=== PATIENT | male | born 1950 | race Caucasian/White ===

== ENCOUNTER 2017-03-26 05:43 | Inpatient (IN) | payer MEDICARE, OTHER ==
--- NOTE | 2017-03-20 16:05 | NUR ---
PATIENT IS HERE TODAY FOR PREADMISSION APPOINTMENT. HE IS SCHEDULED FOR SURGERY ON 03/26/17 FOR A LEFT TOTAL KNEE REPLACEMENT. HIS EDDIE WILL BE HERE TO TAKE HIM HOME WHEN HE IS DISCHARGED AND TO TRANSPORT HIM TO PHYSICAL THERAPY APPOINTMENTS. HE IS SCHEDULED FOR A PRE-OP PHYSICAL THERAPY APPOINTMENT AT THE [facility] ON Sunday03/23/17. PATIENT STATES HE HAS ONE STEP INTO THE HOME AND NO STEPS INSIDE THE HOME. HE DOES HAVE A FRONT WHEELED WALKER THAT HIS WILL BRING IN ONCE HE IS ON THE MEDICAL FLOOR. THEY HAVE A TUB/SHOWER COMBO AND A TRANSFER BENCH FOR SHOWERING. PATIENT WAS ENCOURAGED TO LOOK INTO A HAND HELD SHOWER HEAD FOR EASE OF SHOWERING. PATIENT VERBALIZED INSTRUCTIONS GIVEN FROM OFFICE REGARDING STOPPING HIS COUMADIN ON 03/21/17 AND STARTING LOVENOX INJECTIONS. INFORMATION WILL BE SENT TO DR FERNANDO OFFICE AND TO DISCHARGE PLANNING FOR FURTHER FOLLOW UP.
[~2017-03-26] VITALS: Ht 177.8 cm; Wt 86.2 kg
--- OUTSIDE RECORDS SUMMARY | ~2017-03-26 | XMS | Clinical Summary ---
Demographics + + + | Address | [address] | | | [place] [address] | + + + | Home Phone | | + + + | Preferred Language | Unknown | + + + | Marital Status | | + + + | Islam Affiliation | CAT | + + + | Race | White | + + + | Ethnic Group | Not or | + + + Author + + + | Author | [facility] | + + + | Organization | [facility] | + + + | Address | Unknown | + + + | Phone | Unavailable | + + + Support + + +---------+ + | Name | Relationship | Address | Phone | + + +---------+ + | EDDIE CASTANEDA | ECON | Unknown | | + + +---------+ + Care Team Providers + +------+ + | Care Electrical Logging Engineer Name | Role | Phone | + +------+ + PP | Unavailable | + +------+ + Source Comments CANDIS is fully live on both [facility] and [facility] Allergies Not on File Current Medications Not on file Active Problems Not on file Social History + +-------+ +--------+------+ | Tobacco [...] on file | | + + + Plan of Treatment + + + + + | Health Maintenance | Due Date | Last Done | Comments | + + + + + | INFLUENZA VACCINE | | | | | (FLU SHOT) | 7 | | | + + + + + Results Not on filefrom Last 3 Months"
[~2017-03-26 05:43] MED LIST: ASPIR-LOW81 MG PO; BACLOFEN20 MG PO; BACTRIM DS TAB1 EACH PO; BUTALB-ACETAMI1 EACH PO; CALCIUM-MAGNES1 EAC4 PO; COUMADIN2.5 MG PO; COUMADIN5 MG PO; CYCLOBENZAPRINE10 MG PO; FLOMAX0.4 MG PO; LIPITOR80 MG PO; LOSARTAN POTAS100 MG PO; LOVENOX80 MG/0.8 SUB-Q; PERCOCET 5-3251 EACH PO; PERCOCET 7.5-31 EACH PO; REQUIP4 MG PO; RESTORIL30 MG PO; SIMVASTATIN20 MG PO; TRIAMTERENE25 GM MC; VERAPAMIL ER180 M1 PO; WARFARIN SODIUM5 MG PO
--- NOTE | 2017-03-26 09:20 | NUR ---
03/26/17 0920 Sarahi Ricketts 0905 POULTRY CULLER SAID TO MONITOR BP AND KEEP WITHIN 20% OF PREOP BP. PT REPORTS "FEELING GREAT" DENIENS ANY DIZZINESS OR BEING LIGHT HEADED. RESP EVEN AND UNLABORED.
--- NOTE | 2017-03-26 10:36 | NUR ---
PATIENT TO FLOOR 1015, VS STABLE. ORIENTED PATIENT TO ROOM, AND POC. DISUSSED ORDERS FOR GARNER IF RESIDUAL >500 ML. PATIENT NOW DRINKING WATER. PATIENT DEMONSTRATED USE OF IS, ABLE TO RAISE WAFER TO 2500. LUNG SOUNDS CLEAR THROUGHOUT. PATIENT REPORTS BEING A DAILY SMOKER, DISCUSSED NICOTINE PATCH, PATIENT AGREED. PUT IN ORDER FOR HOSPITALIST CONSUT TO CO MANAGE PATIENT CO-MORBIDITIES. PATIENT AWAKE AND ALERT. NO COMPLAINTS OF PAIN. DSG TO LEFT KNEE C/D/I. KYRO CUFF IN PLACE AND SCD AND FOOT PUMP IN PLACE WITH LISA WHEELER TO RIGHT LEG. STRONG PEDAL PULSES AND CMS INTACT.
--- NOTE | 2017-03-26 11:36 | NUR ---
PATIENT UP DANGLING AT SIDE OF BED. NO COMPLAINTS OF PAIN. STRONG PEDAL PULSES. PATIENT ATTEMPTED TO URINATE, NOT ABLE TO. CONTINUING TO ENCOURAGE TO DRINK WATER. AAOX3. ABLE TO LIFT LEG WELL. KYRO CUFF ON, SCDS AND LISA WHEELER. VS STABLE. BP IMPROVING. NOW ON RA, SATURATION 95%.
--- NOTE | 2017-03-26 12:37 | NUR ---
PATIENT ATTEMPTED TO URINATE AGAIN, NO RESULTS. BLADDER SCAN ESTIMATE OF 200 ML. PATIENT STATES " I CAN FEEL LIKE I HAVE TO GO, BUT JUST CAN'T YET". NO COMPLAINTS OF PAIN. ABLE TO LIFT LEG UP AND DANGLE ON SIDE OF BED WITH EASE. DISCUSSED FALL PERCAUTIONS AND NEED TO CALL FOR ASSISTANCE. PATIENT NOW RESTING BACK IN BED WITH EYES CLOSED. DRSG TO LEFT KNEE C/D/I. VS SIGNS STABLE. PATIENT USING IS.
--- NOTE | 2017-03-26 12:47 | NUR ---
DR. HENLEY TO ROOM TO ASSESS PATIENT PER HOSPITALIST CONSULT. APPLIED 2L NC TO PATIENT, APPEARS TO DESAT WHILE SLEEPING TO 85% ON RA.
--- NOTE | 2017-03-26 13:41 | NUR ---
ADOLPH GANDHI TO WORK WITH PHYSICAL THERAPY. PATIENT CONTINUES TO HAVE 0 COMPLAINTS OF PAIN. POST OP VS DONE, PATIENT STABLE. DRSG TO LEFT LEG C/D/I. STRONG PEDAL PULSE, TOES WARM.
--- NOTE | 2017-03-26 14:14 | NUR ---
PATIENT AMBULATED FULL LOOP IN [place] WITH PHYSICAL THERAPY AND WAS ABLE TO STEP UP STAIRS AND PERFORM OTHER ACTIVITIES. PATIENT REPORTED PHYSICAL THERAPY TOLD HIM HE FLEX HIS KNEE TO 91 DEGREES BEND. ASSESED PATIENT DRSG AFTER ACTIVITY, CONTINUES TO APPEAR C/D/I. PATIENT UP IN RECLINER, EQUIPMENT CLEANER AND TESTER REFRESHED ICE TO KYRO CUFF, SCDS CALF PUMP AND FOOT PUMP ON. IV FLUIDS NOW CONITNUING TO INFUSE. PATIENT DRINKING WELL, ATTEMPTED TO URINATE AGAIN. DISCUSSED PLAN FOR BLADDERSCAN AT 1530. PATIENT VERBALIZED UNDERSTANDING. NO COMPLAINTS OF PAIN, OR NAUSEA. ENCOURAGED PATIENT TO EAT, REFUSED AT THIS TIME. PATIENT NOW LOOKING AT MENU FOR DINNER. DISCUSSED EVENING MEDICATIONS.
--- NOTE | 2017-03-26 14:17 | NUR ---
PATIENT BACK FROM PT, SITTING IN CHAIR WITH VISITOR. SED'S ON, CRYO FILLED. FRESH ICE WATER GIVEN. PATIENT SAYS HE'S NOT HUNGRY. CALL LIGHT IN REACH. NO OTHER NEEDS AT THIS TIME.
--- NOTE | 2017-03-26 15:00 | NUR ---
PATIENT SITTING UP IN RECLINER, RESTING. OXYGEN SATURATION 98% ON RA. AT CHAIR SIDE. PROVIDED PATIENT WITH ICE WATER. WILL BLADDER SCAN WHEN PATIENT WAKES UP, REQUESTED TO LET HIM REST A LITTLE LONGER, "HE JUST FELL ASLEEP". PLAN TO BLADDER SCAN AT 1600.
--- NOTE | 2017-03-26 16:16 | NUR ---
PATIENT SITTING UP IN CHAIR, IN ROOM.PATIENT TRIED USEING URINAL, WAS NOT ABLE TO GO. FRESH WATER GIVEN, CALI SAINI CAME IN I WAS LEAVING. CALL LIGHT IN REACH. NO OTHER NEEDS AT THIS TIME.
--- NOTE | 2017-03-26 16:47 | NUR ---
BLADDER SCANNED ESTIMATE 280ML OF URINE, PATIENT STATES " I FEEL THE URGE BUT JUST CAN'T GO". PATIENT REPORTS FEELING SOME TIGHTNESS IN LEG WHEN DOING EXERCISES. ENCOURAGED PATIENT TO TAKE A BREAK FROM EXERCISES AND ACTIVITY FOR AWHILE. HAS BEEN VERY ACTIVE THROUGHUT DAY, DISCUSSED OVERDOING IT. ORDERED PATIENT DINNER, PROVIDED WITH FRESH ICE WATER. TALIB C/D/I, KODI IN [facility]. STRONG PEDAL PULSES, TOES WARM TO TOUCH. CONTINUES TO RATE PAIN 0/10 ON PAIN SCALE.
--- NOTE | 2017-03-26 17:41 | NUR ---
PATIENT SITTING UP IN RECLINER, PROVIDED PATIENT WITH EVENING MEDICAITONS. CONTINUES HAVE NOT COMPLAINTS OF PAIN, JUST TIGHTNESS WHEN LIFTS LEG UP BUT RESOLVES AT REST. KYRO CUFF ON, STRONG PEDAL PULSE. SCDS ON. CALL LIGHT IN REACH, PATIENT WATCHING TV AND WAITING FOR DINNER.
--- NOTE | 2017-03-26 17:57 | NUR ---
PATIENT STOOD UP WITH ONE PERSON ASSIST WITH FWW TO TRY TO VOID. PATIENT BACK IN CHAIR WITH LEGS ELEVATED. CALL BUTTON IN REACH. FRESH ICE WATER GIVEN. ICE IN CRYO. NO OTHER NEEDS AT THIS TIME.
--- NOTE | 2017-03-26 18:43 | NUR ---
PATIENT BLADDER SCAN 588, DISCUSSED WITH PATIENT STANDING ORDER TO INSERT GARNER OVER NIGHT IF >500 ML AND UNABLE TO VOID. PATIENT REQUESTED TO SIT IN BATHROOM AND ATTEMPT TO URINATE. STBY TO BATHROOM, PATIENT VERBALIZES WILL CALL FOR ASSIST WHEN READY TO GET BACK TO BED.
--- NOTE | 2017-03-26 19:47 | NUR ---
PLACED GARNER CATHETER, PATIENT TOLERATED WELL. INSERTED WITH EASE. CONCENTRATED URINE RETURN. VERBAL REPORT AT BEDSIDE TO ONCOMING RN. PATIENT RESTING BACK IN BED, SCDS, LISA HOSE AND KYRO CUFF IN PLACE. STRONG PEDAL PULSES. CONTINUIOUS PULSE OX ON. CALL LIGHT WITHIN REACH.
--- NOTE | 2017-03-26 21:14 | NUR ---
PT SITTING UP IN BED, WATCHING TV. NO APPARENT DISTRESS. PLEASENT DEMEANOR. ALERT AND ORIENTED X4. RATES PAIN AT 2/10, REQUESTED PAIN MEDICATION, GAVE SCHEDULED DOSE OF OXYCODONE PO. DENIES PRURITIS. DRESSING IS CLEAN DRY AND INTACT, NO SHADOWING. TEDS, COLD CRYOCUFF, SCD TO RIGHT CALF AND FOOT SCD TO LEFT FOOT, AND HEEL PROTECTORS IN PLACE. PT REPORTS USING INCENTIVE SPIROMETER TODAY, DEMONSTRATED CORRECT USE, IS AT BEDSIDE. GAVE CRACKERS. ICE WATER AT BEDSIDE. CALL LIGHT IN REACH. PT HAS NO FURTHER NEEDS.
--- NOTE | 2017-03-26 23:29 | NUR ---
PT APPEARS TO BE SLEEPING. RR WNL AND UNLABORED. ANCEF INFUSED WNL. LIGHTS AND TV OFF IN ROOM.
--- NOTE | 2017-03-27 01:16 | NUR ---
PT APPEARS TO BE SLEEPING. LIGHTS AND TV OFF IN ROOM.
--- NOTE | 2017-03-27 04:44 | NUR ---
PT APPEARS TO BE SLEEPING.
--- NOTE | 2017-03-27 05:29 | NUR ---
PT HAD UNEVENTFUL NIGHT. SLEPT MOST OF SHIFT. PAIN WELL CONTROLLED WITH SCHEDULED AND PRN PAIN X1 MEDICATION. PT ALERT AND ORIENTED X4, PLEASENT DEMEANOR. USES CALL LIGHT APPROPRIATLY. NO NAUSEA. NO PRURITIS. ALL DR FERNANDO ORDERS IN PLACE OVERNIGHT. DRESSING IS CLEAN DRY AND INTACT, NO SHADOWING. INCENTIVE SPIROMETER AT BEDSIDE. ANCEF GIVEN.
--- NOTE | 2017-03-27 06:24 | NUR ---
DC'D PATSY, PT TOLERATED WELL. PT RATES PAIN AT A 1/10 NOW, STATING "I HARDLY HAVE ANY." ORDERED PT BREAKFAST. NO FURTHER NEEDS. CALL LIGHT IN REACH. DRESSING CLEAN DRY AND INTACT, NO SHADOWING. CALL LIGHT IN REACH.
--- NOTE | 2017-03-27 07:50 | NUR ---
REPORT RECEIVED FROM TRINH SY. PT IS AWAKE AND SITTING UP IN BED. DENIES ANY NEEDS AT THIS TIME. CALL LIGHT IN REACH. BOARD UPDATED.
--- NOTE | 2017-03-27 08:20 | NUR ---
ASSESMENT DONE. SCHEDULED OXY GIVEN. PT ATE BREAKFAST AND DENIES NAUSEA. PT SITTING UP ON EDGE OF BED. CRYO REFILLED. VISITORS IN ROOM. PT ALERT AND PLEASANT.
--- NOTE | 2017-03-27 08:24 | OR ---
[facility] [address] [place], [place] [address] Signed DATE OF OPERATION: 03/26/2017 SURGEON: Manpreet Cruz MD PREOPERATIVE DIAGNOSIS: Severe degenerative joint disease, left knee. POSTOPERATIVE DIAGNOSIS: Severe degenerative joint disease, left knee. PROCEDURE PERFORMED: Left total knee arthroplasty with computer navigation. TOE STAPLER: PATRICIA Robles was present for the entire procedure, was in critical for positioning, retraction, wound closure, and dressing application. ANESTHESIA: Spinal. BLOOD LOSS: Minimal. TOURNIQUET TIME: Approximately 62 minutes. IMPLANTS: Darian Triathlon size 6 with 11 mm insert, 35 mm patella. BRIEF HISTORY: Basilia is a 67-year-old gentleman with worsening DJD. He had undergone nonoperative treatment including bracing, arthroscopy, and injections without substantial relief. Risks and benefits of operative treatment were discussed with him and he elected to proceed. DESCRIPTION OF PROCEDURE: Once consent was obtained, he was taken to the operating room. After adequate anesthesia, he was placed on operating table. All downside pressure points were well Electronically Signed By: MANPREET CRUZ MD 03/27/17 0824 PATIENT NAME: BASILIA CASTANEDA OPERATIVE REPORT DATE OF : 52 PHYSICIAN: MANPREET CRUZ MD REPORT #: [id number] REPORT IS CONFIDENTIAL AND NOT TO BE RELEASED WITHOUT AUTHORIZATION [facility] [address] [facility] [place], [place] [address] Signed padded. Hip bump was placed. The left leg was placed in well-padded proximal thigh tourniquet. Because he had prior history by report of DVT, we did not give him any TXA. The leg was prepped and draped in a standard sterile fashion. It was exsanguinated using Esmarch bandage. Tourniquet inflated to 250 mmHg. Standard anterior approach through curved incision was taken through the skin and subcutaneous tissue. Median parapatellar arthrotomy was performed. The infrapatellar fat pad was excised and the MCL was elevated to sleeve around the posterior medial corner. Care was taken to protect the MCL and patellar tendon throughout the procedure. The medial meniscus was absent. The anterior horn of the lateral meniscus was transected as was the ACL. The PCL was intact. The knee was flexed and the navigation guide was pinned to the distal femur. The femur was registered with the computer. The cutting block was then pinned in neutral alignment and the distal femoral cut was made. The femur was sized to a 6. The 6 AP cutting block was then pinned in alignment with epicondylar axis. The anterior, posterior and chamfer cuts were made. The attention was then turned to the proximal tibia. The proximal tibia was cleaned of soft tissue and navigation guide was pinned. The tibia was registered with the computer. The cutting block was then pinned in neutral alignment and set to take 2 mm off the most deformed posteromedial corner. The cut was made with care taken to protect the patellar tendon and MCL once again. The bone was excised, as were any meniscal remnants. Posterior release performed off the femur and posterior osteophytes were removed. The flexion and extension gaps sized found to be symmetric at 11 mm. The trials were then positioned, knee was taken through range of motion, and found to be quite stable. The patella was cut, sized and drilled for a 35 patella. The tibia was then finished using the keel punch and bone surfaces were pulse lavaged, packed with the right dry Ray-Felix. Cement was mixed and reached proper consistency and placed all implants on bone surfaces. Tibia was impacted into position first followed by the polyethylene and any remaining cement was removed. The femur was then impacted in position, again any remaining cement was removed. The knee was then extended and nicely loaded. Patella was clamped into position and again any remaining cement was removed. The cement was allowed to harden for 13 minutes. The knee was then flexed and the remaining cement was removed using osteotomes. The periarticular soft tissue was injected with ropivacaine Toradol mixture. The knee was pulse lavaged at intervals throughout the procedure. A total of 3 L of antibiotic irrigation was used. The arthrotomy was then closed using 0 Stratafix in subcutaneous tissue and pankaj for the skin. Due to his being anticoagulated and no TXA, we did dress the wound with a Mepilex Ag dressing and a bulky Brady. He was then awakened and taken to recovery room in satisfactory condition. All sponge, needle, and instrument counts were correct. Manpreet Cruz MD Electronically Signed By: MANPREET CRUZ MD 03/27/17 0824 PATIENT NAME: BASILIA CASTANEDA OPERATIVE REPORT DATE OF : 52 PHYSICIAN: MANPREET CRUZ MD REPORT #: [id number] REPORT IS CONFIDENTIAL AND NOT TO BE RELEASED WITHOUT AUTHORIZATION [address] [address] Signed [facility] /[id number] Electronically Signed By: MANPREET CRUZ MD 03/27/17 0824 PATIENT NAME: BASILIA CASTANEDA OPERATIVE REPORT DATE OF : 52 PHYSICIAN: MANPREET CRUZ MD REPORT #: [id number] REPORT IS CONFIDENTIAL AND NOT TO BE RELEASED WITHOUT AUTHORIZATION
[2017-03-27] MEDS ORDERED: FIORINAL 50-321 EACH PO (08:26)
[2017-03-27] MEDS ORDERED: FERROUS SULFAT325 MG PO (09:35)
[2017-03-27] MEDS ORDERED: VITAMIN C500 M4 PO (09:36)
--- NOTE | 2017-03-27 09:37 | NUR ---
MED REC COMPLETE
--- NOTE | 2017-03-27 09:45 | NUR ---
PT UP IN [place] WITH PHYSICAL THERAPY.
--- NOTE | 2017-03-27 10:19 | NUR ---
PT BACK FROM PHYSICAL THERAPY. SITTING IN CHAIR WITH LEGS ELEVATED. STATES PHYSICAL THERAPY WENT WELL. DENIES ANY OTHER NEEDS AT THIS TIME. CALL LIGHT IN REACH.
--- NOTE | 2017-03-27 11:16 | NUR ---
PT SITTING IN CHAIR WITH CRYO IN PLACE. RATES PAIN 4\10, ASKED IF HE WOULD LIKE THIS RN TO CALL THE DR AND GET MORE PAIN MEDICATIONS. HE STATED HE WAS OK WITH A 4 AND IF IT GOT HIGHER HE WOULD CALL AND LET US KNOW. DENIES FURTHER CONCERNS.
--- NOTE | 2017-03-27 12:45 | NUR ---
PT SITTING UP IN CHAIR. ATE LUNCH WITH NO NAUSEA. DENIES OTHER NEEDS AT THIS TIME.
--- NOTE | 2017-03-27 13:35 | NUR ---
PT UP AT BEDSIDE USING URINAL. BACK TO CHAIR WITH CRYO IN PLACE. OXY GIVEN FOR PAIN 06/14. PT DENIES OTHER NEEDS AT THIS TIME.
--- NOTE | 2017-03-27 13:45 | NUR ---
DR HENLEY IN TO SEE PT AND DISCUSS PLAN OF CARE.
--- NOTE | 2017-03-27 14:02 | NUR ---
PT SITTING IN CHAIR-CRYO CUP ON. ALERT ADN ORIENTED AND MENTIONED THAT HE WASN'T QUITE UP TO LEAPING TALL BLDG'S YET, BUT SOON. PREPARING FOR P.T. LATER THIS AFTERNOON. EXTENDED A BLESSING, WILL FOLLOW NEEDED
--- NOTE | 2017-03-27 14:27 | NUR ---
PT UP WALKING IN [place] WITH PHYSICAL THERAPY. APPEARS TO BE TOLERATING WELL.
--- NOTE | 2017-03-27 15:32 | NUR ---
TALKED TO PT ABOUT PHYS. THER AND HIS OUTPATIENT THERAPY. STATES HIS PAIN IS WELL CONTROLLED ATT. STATES HIS LEG IS A LITTLE STIFF BUT DENIES PAIN IN CALF. JUST CRAMPING IN QUAD.
--- NOTE | 2017-03-27 16:52 | NUR ---
DR FERNANDO CALLED. PT GIVEN [address] FERNANDO ORDER FOR PT PAIN 07/15. CRYO REFILLED. PT SITTING UP IN CHAIR EATING DINNER. AT BEDSIDE. DENIES OTHER NEEDS AT THIS TIME. WILL REASSESS PAIN.
--- NOTE | 2017-03-27 18:00 | NUR ---
PT UP WITH PHYSICAL THERAPY X2 TODAY. TOLERATED WELL. UP IN CHAIR MOST OF DAY. INSPIRATORY WHEEZE ON LEFT SIDE THIS AM, BUT CLEARED BY AFTERNOON. CRYO IN PLACE ALL DAY. WOUND COVERED, DRESSING IS CDI. SBA WITH FWW. PT USING URINAL AT BEDSIDE. SCHEDULED OXY AND PRN NORCO FOR PAIN.
--- NOTE | 2017-03-27 20:05 | NUR ---
PT COMPLAINED OF 5/10 PAIN, GAVE SCHEDULED DOSE OF OXYCODONE. PT HAS NO FURTHER NEEDS. WILL CONTINUE TO MONITOR CLOSELY.
--- NOTE | 2017-03-27 20:22 | NUR ---
PATIENT REQUESTED FOR PAIN MEDS. TRINH SY NOTIFIED.
--- NOTE | 2017-03-27 20:31 | NUR ---
PT LAYING IN BED, WATCHING TV. PT HAS FLAT AFFECT, ANSWERS QUESTIONS APPROPRIATLY, BUT ONLY SPEAKS WHEN ASKED A QUESTION. PT RATES PAIN AT 7/10, GAVE SCHEDULED OXYCODONE FOR PAIN. PT REPORTS PAIN WAS UNCHANGED AND ACTUALLY GOT A LITTLE WORSE AFTER THE NORCO WAS GIVEN. ALL DR FERNANDO ORDERS IN PLACE. CRYO CUFF FILLED WITH ICE. DRESSING IS CLEAN DRY AND INTACT, NO SHADOWING. CALL LIGHT IN REACH.
--- NOTE | 2017-03-27 20:50 | NUR ---
NOTIFIED DR FERNANDO OF PT'S POOR PAIN CONTROL, NEW PAIN MEDICATIONS ORDERS RECIEVED. WILL CONTINUE TO MONITOR PT'S PAIN CONTROL CLOSELY.
--- NOTE | 2017-03-27 22:05 | NUR ---
PT COMPLAINED OF 5/10 PAIN, GAVE SCHEDULED DOSE OF OXYCODONE FOR PAIN. PT REPORTS OXYCODONE IS WORKING FOR HIS PAIN. NO FURTHER NEEDS. PT IS IN BED AT THIS TIME. LIGHTS AND TV OFF IN ROOM. CALL LIGHT IN REACH.
--- NOTE | 2017-03-28 00:14 | NUR ---
PT APPEARS TO BE SLEEPING. RR WNL AND UNLABORED. LIGHTS AND TV OUT IN ROOM.
--- NOTE | 2017-03-28 01:19 | NUR ---
pt up to bathroom, tolerated standby assist with fww well. steady on feet. pt voided and had bm. pt back in bed. all dr jerome orders in place. pt rates pain at 5/10, gave dilaudid po for pain. call light in reach.
--- NOTE | 2017-03-28 02:40 | NUR ---
PT LAYING IN BED AWAKE WHEN ENTERING ROOM. RATES PAIN AT 5/10, STATES "ITS BEEN SUBSIDING A LITTLE BIT NOW." GAVE SCHEDULED OXYCODONE. PT HAS NO FURTHER NEEDS. DENIES NAUSEA.
--- NOTE | 2017-03-28 04:21 | NUR ---
PT WOKE EASILY TO RN VOICE. RATES PAIN AT 4/10, STATED "I THINK ITS GETTING BETTER NOW." PT REFUSED PAIN MEDICATION AT THIS TIME. ALLOWING PT TO REST. NO FURTHER NEEDS. CALL LIGHT IN REACH.
--- NOTE | 2017-03-28 05:14 | NUR ---
PT WAS PAINFUL BEGINNING OF SHIFT. BETTER PAIN CONTROL AFTER NEW ORDERS RECIEVED FROM DR FERNANDO. PT SLEPT WELL AFTER PAIN LEVEL DECREASED. NO NAUSEA. DRESSING CLEAN DRY AND INTACT. TEDS, SCD'S, HEEL PROTECTORS, CRYO CUFF ALL IN PLACE OVERNIGHT. PT AMBULATES WELL WITH FWW, STEADY ON FEET. HAD LOOSE BM. ALERT AND ORIENTED X4, PLEASENT, FRIENDLY. USES CALL LIGHT APPROPRIATLY.
--- NOTE | 2017-03-28 06:37 | NUR ---
PT UP TO BATHROOM TO VOID. THEN UP TO RECLINER CHAIR. TEDS AND CRYO CUFF IN PLACE. RATES PAIN AT 4/10, STATES "ITS PRETTY GOOD." GAVE SCHEDULED OXYCODONE. BREAKFAST ORDERED. EDUCATION ON INCENTIVE SPIROMETER, PT DEMONSTRATED CORRECT USE. CALL LIGHT IN REACH.
--- NOTE | 2017-03-28 07:20 | NUR ---
REPORT RECEIVED FROM TRINH SY. PT SITTING UP IN CHAIR WITH LEGS ELEVATED. WATER CUP REFILLED. PT WOULD LIKE TO GET UP AND WALK TODAY. DENIES PAIN AT THIS TIME. CALL LIGHT IN REACH
--- NOTE | 2017-03-28 08:17 | NUR ---
PT SITTING UP IN CHAIR EATING BREAKFAST. RATED PAIN 4/10 AND WAS GRIMACING. GIVEN PRN DILAUDID. PILLOW PLACED UNDER FOOT. INCISION COVERED WITH MEPILEX, OPSITE, AND TD. CRYO REFILLED AND PUT IN PLACE. PT DENIES OTHER NEEDS AT THIS TIME. CALL LIGHT IN REACH.
[2017-03-28] MEDS ORDERED: MIRALAX17 GM PO (08:23)
[2017-03-28] MEDS ORDERED: HYDROMORPHONE HC4 MG PO (08:23)
[2017-03-28] MEDS ORDERED: OXYCODONE HCL5 MG PO (08:23)
--- NOTE | 2017-03-28 09:23 | NUR ---
PT IS WITH SATINDER IN PHYSICAL THERAPY ROOM.
--- NOTE | 2017-03-28 09:45 | NUR ---
FAXED CHART NOTES INCLUDING FACESHEET, ORDER, H AND P, PROG NOTES, PT AND OT EVAL AND NOTES TO [facility]. TALKED WITH AGUSTIN FROM [facility] ABOUT THIS. RECIEVED FAX CONFIRMATION.
--- NOTE | 2017-03-28 09:53 | NUR ---
PT BACK FROM PHYSICAL THERAPY. SITTING IN CHAIR WITH LEGS ELEVATED. PILLOW UNDER FEET. WATER REFILLED. SCHEDULED OXY GIVEN FOR PAIN 07/15. WATER REFILLED. CRYO REFILLED AND IN PLACE. PT DENIES OTHER NEEDS AT THIS TIME, BUT APPEARS ANXIOUS AFTER GETTING OFF PHONE WITH .
--- NOTE | 2017-03-28 09:53 | NUR ---
CALLED [facility] TO DISCUSS PT PLAN OF CARE ON DISCHARGE, ALSO REPORTED PLAN FOR LAB INR ON SUNDAY AND FOLLOW UP WITH ON SUNDAY OF NEXT WEEK.
--- NOTE | 2017-03-28 09:58 | NUR ---
GUNJAN FROM PHARMACY DISCUSSING WARFARIN PLAN WITH [facility] AT THIS TIME
--- NOTE | 2017-03-28 11:03 | NUR ---
Patient to take warfarin 10mg today, then continue home dose. Continue enoxaparin 80mg sub-q BID and follow up with [facility]. Next INR due Sunday
--- NOTE | 2017-03-28 11:15 | NUR ---
DC EDUCATION PROVIDED INCLUDING FOLLOW-UP, WOUND CARE, AND S/S OF INFECTION. PT VERBALIZED UNDERSTANDING. ANSWERED ALL QUESTIONS. PT GOT DRESSED WITH MINOR ASSISTANCE. USES WALKER APPROPRIATELY. BELONGINGS RETURNED TO PT. PT WHEELED OUT TO CAR BY TRINH TRAN.
--- NOTE | 2017-04-16 08:37 | DS ---
[facility] [address] [place], [place] [address] Signed ADMISSION DATE: 03/26/2017 DISCHARGE DATE: 03/28/2017 ADMISSION DIAGNOSIS: Degenerative joint disease, left knee. DISCHARGE DIAGNOSIS: Degenerative joint disease, left knee. PROCEDURE PERFORMED: Left total knee arthroplasty. BRIEF HISTORY: Basilia is a 67-year-old gentleman with severe arthritis. He had undergone nonoperative treatment without success. Risks and benefits of operative treatment were discussed with him. He elected to proceed. Once consent was obtained, he was taken to the operating room, underwent the above-named procedure. He tolerated this well, was taken to the recovery room and subsequently to the orthopedic floor. He was initially placed on oxycodone 7.5 q.6 hours for pain. The diclofenac was discontinued due to his renal status. The spinal wore off and the oxycodone was not quite enough. We increased this to 10 mg q.4 hours and Dilaudid p.r.n. He did well with this regimen. He was seen by Physical Therapy, able to ambulate up and down the hallway and up and down stairs by the day of discharge. He will be discharged home with outpatient physical therapy and his above medication. He was kept on DVT prophylaxis of SCDs, TEDs, and Lovenox 80 mg b.i.d. He will continue with the bridging therapy, restart his Coumadin, and follow up with his PCP for INR in 3 to 5 days. Manpreet Cruz MD [facility] /[id number] Copies: Electronically Signed By: MANPREET CRUZ MD 04/16/17 0837 PATIENT NAME: BASILIA CASTANEDA DISCHARGE SUMMARY DATE OF : 52 REPORT #: [id number] PHYSICIAN: MANPREET CRUZ MD PCP: JOSE DE JESUS ALVARADO DO REPORT IS CONFIDENTIAL AND NOT TO BE RELEASED WITHOUT AUTHORIZATION [address] [place], [place] [address] Signed ~ Electronically Signed By: MANPREET CRUZ MD 04/16/17 0837 PATIENT NAME: BASILIA CASTANEDA DISCHARGE SUMMARY DATE OF : 52 REPORT #: [id number] PHYSICIAN: MANPREET CRUZ MD PCP: JOSE DE JESUS ALVARADO DO REPORT IS CONFIDENTIAL AND NOT TO BE RELEASED WITHOUT AUTHORIZATION
== END 2017-03-28 11:15 | disposition home or self-care (01) | DRG 470 ==
LOC: OPS 05:43 → DS 05:43 → OPS 06:45 → MS 10:15 → OPS 10:15 → DS 11:00 → OPS 11:00 → MS 03-28 11:15
PROVIDERS: ADMIT Specialist
PROC: 3E0T3BZ Introduction of Anesthetic Agent into Peripheral Nerves and Plexi, Percutaneous Approach (ICD-10-PCS; 2017-03-26)
PROC: 3E0T3BZ Introduction of Anesthetic Agent into Peripheral Nerves and Plexi, Percutaneous Approach (ICD-10-PCS; 2017-03-26)
PROC: 3E0T33Z Introduction of Anti-inflammatory into Peripheral Nerves and Plexi, Percutaneous Approach (ICD-10-PCS; 2017-03-26)
PROC: 0SRD0J9 Replacement of Left Knee Joint with Synthetic Substitute, Cemented, Open Approach (ICD-10-PCS; principal; 2017-03-26 06:45)
DX: M17.12 Unilateral primary osteoarthritis, left knee (principal); Z95.2 Presence of prosthetic heart valve; G89.18 Other acute postprocedural pain; I12.9 Hypertensive chronic kidney disease with stage 1 through stage 4 chronic kidney disease, or unspecified chronic kidney disease; N18.3 Chronic kidney disease, stage 3 (moderate); F51.04 Psychophysiologic insomnia; Z79.01 Long term (current) use of anticoagulants; N40.0 Benign prostatic hyperplasia without lower urinary tract symptoms; E78.5 Hyperlipidemia, unspecified; G25.81 Restless legs syndrome; G89.29 Other chronic pain; M54.9 Dorsalgia, unspecified; F17.290 Nicotine dependence, other tobacco product, uncomplicated; Z88.0 Allergy status to penicillin
CPT/HCPCS: 01402; 36415; 51798; 64447; 64450; 76942; 80048; 80069; 85025; 85610; 97110; 97116; 97161; 99407; C1713; C1776; G8978; G8979; J0690; J1100; J1170; J1650; J2274; J2704; J2795; J3010; J7120

== ENCOUNTER 2019-02-03 11:24 | Emergency (ER) | payer MEDICARE, OTHER ==
[~2019-02-03] VITALS: Ht 177.8 cm; Wt 86.2 kg
--- OUTSIDE RECORDS SUMMARY | ~2019-02-03 | XMS | Encounter Summary ---
Demographics + + + | Address | [address] | | | [place] [address] | + + + | Home Phone | | + + + | Preferred Language | Unknown | + + + | Marital Status | | + + + | Anabaptism Affiliation | CAT | + + + | Race | White | + + + | Ethnic Group | Not or | + + + Author + + + | Organization | Unknown | + + + | Address | Unknown | + + + | Phone | Unavailable | + + + Support + + +---------+ + | Name | Relationship | Address | Phone | + + +---------+ + | Ai De La Paz | ECON | Unknown | | + + +---------+ + | Tammie Leblanc | ECON | Unknown | | + + +---------+ + Care Team Providers + +------+ + | Care Flavor Maker Name | Role | Phone | + +------+ + PCP | Unavailable | + +------+ + Encounter Details +--------+ + + + + | Date | Type | Department | Care Team | Description | +--------+ + + + + | 07/08/ | Results | | [place], | | | 2002 | Only | | Daisy | | +--------+ + + + + Social History + +-------+ +--------+------+ | Tobacco Use | Types | Packs/Day | Years | Date | | | | | Used | | + +-------+ +--------+------+ | Never Assessed | | | | | + +-------+ +--------+------+ + + + | Sex Assigned at | Date Recorded | | | | + + + | Not on file | | + + + + + + + | Job Start Date | Occupation | Industry | + + + + | Not on file | Not on file | Not on file | + + + + + + + + | Travel History | Travel Start | Travel End | + + + + + + | No recent travel history available. | + + documented as of this encounter Plan of Treatment +--------+---------+ + + + | Date | Type | Specialty | Care Team | Description | +--------+---------+ + + + | 04/30/ | Office | Neurological Surgery | Michael Durbin MD | | | 2020 | Visit | | [address] | | | | | | [address] | | | | | | [place] [address] | | | | | | [phone] | | | | | | | | +--------+---------+ + + + documented as of this encounter Procedures + +--------+ + + + | Procedure Name | Priori | Date/Time | Associated Diagnosis | Comments | | | ty | | | | + +--------+ + + + | X-RAY CHEST 1 VIEW | Routin | 07/09/2002 | | Results for this | | | e | 5:30 AM | | procedure are in the | | | | PDT | | results section. | + +--------+ + + + | X-RAY CHEST 1 VIEW | Urgent | 07/08/2002 | | Results for this | | | | 10:06 PM | | procedure are in the | | | | PDT | | results section. | + +--------+ + + + documented in this encounter Results CHEST 1 VIEW (07/09/2002 5:30 AM PDT) + + + + + + | Component | Value | Ref Range | Performed | Pathologist | | | | | At | Signature | + + + + + + | CHEST, 1 | Radiologist 1: BRIAN, | | | | | VIEW | Yodit DONNELLYCHEST: | | | | | | 07/09/2002 Dictated | | | | | | 07/09/2002 COMPARISON: | | | | | | 07/08/2002. FINDINGS: | | | | | | AP chest radiograph | | | | | | submitted. | | | | | | Endotracheal tube has | | | | | | beenremoved. Ranchester-Claire | | | | | | catheter and left chest | | | | | | tube remain in | | | | | | place.Bibasilar | | | | | | subsegmental | | | | | | atelectasis, left | | | | | | greater than right, | | | | | | hasincreased slightly. | | | | | | There is no | | | | | | pneumothorax. | | | | | | IMPRESSION: 1. Removal | | | | | | of endotracheal tube. | | | | | | 2. Low lung volumes | | | | | | with slight increase in | | | | | | bibasilar | | | | | | subsegmentalatelectasis, | | | | | | left greater than | | | | | | right. END OF | | | | | | IMPRESSION: | | | | + + + + + + + + | Specimen | + + | | + + + +---------+ + + | Performing | Address | City/State/Zipcode | Phone Number | | Organization | | | | + +---------+ + + | [facility] DEPARTMENT OF | | | | | RADIOLOGY | | | | + +---------+ + + CHEST 1 VIEW (07/08/2002 10:06 PM PDT) + + + + + + | Component | Value | Ref Range | Performed | Pathologist | | | | | At | Signature | + + + + + + | CHEST, 1 | Radiologist 1: BRIAN, | | | | | VIEW | Yodit DONNELLYCHEST: | | | | | | 07/08/2002 Dictated | | | | | | 07/09/2002 COMPARISON: | | | | | | 07/03/2002. FINDINGS: | | | | | | The patient is now | | | | | | status post median | | | | | | sternotomy andcardiac | | | | | | surgery. Endotracheal | | | | | | tube tip is just above | | | | | | the thoracicinlet. | | | | | | Ranchester-Claire catheter tip | | | | | | is in the right | | | | | | pulmonary artery. | | | | | | Leftchest tube is in | | | | | | place. There is | | | | | | minimal bibasilar | | | | | | subsegmentalatelectasis. | | | | | | There is no | | | | | | pneumothorax. There is | | | | | | no pulmonary edema. | | | | | | IMPRESSION: 1. Status | | | | | | post median sternotomy | | | | | | and cardiac surgery. 2. | | | | | | Minimal bibasilar | | | | | | subsegmental | | | | | | atelectasis. END OF | | | | | | IMPRESSION: | | | | + + + + + + + + | Specimen | + + | | + + + +---------+ + + | Performing | Address | City/State/Zipcode | Phone Number | | Organization | | | | + +---------+ + + | [facility] | | | | | RADIOLOGY | | | | + +---------+ + + documented in this encounter Visit Diagnoses Not on filedocumented in this encounter"
--- OUTSIDE RECORDS SUMMARY | ~2019-02-03 | XMS | Clinical Summary ---
Demographics + + + | Address | [address] | | | [place] [address] | + + + | Home Phone | | + + + | Preferred Language | Unknown | + + + | Marital Status | | + + + | Gnosticist Affiliation | Unknown | + + + | Race | Unknown | + + + | Ethnic Group | Unknown | + + + Author + + + | Author | [facility] (Historical as of | | | 09-21-18) | + + + | Organization | [facility] (Historical as of | | | 09-21-18) | + + + | Address | Unknown | + + + | Phone | Unavailable | + + + Support + + + + + | Name | Relationship | Address | Phone | + + + + + | Ai Castaneda | ECON | [address] | | | | | [facility] [place] | | | | | [address] | | + + + + + Care Team Providers + +------+ + | Care Polishing Machine Operator Name | Role | Phone | + +------+ + | Juan Daniel Frederick DO | PP | | + +------+ + Allergies + + + + + + | Active Allergy | Reactions | Severity | Noted | Comments | | | | | Date | | + + + + + + | Codeine | Nausea Only | Low | 06/01/19 | | | | | | 17 | | + + + + + + | Penicillins | Other (See Comments) | High | 06/01/19 | Stopped breathing | | | | | 17 | | + + + + + + Current Medications + + +--------+---------+------+------+-------+ | Prescription | Sig. | Disp. | Refills | Star | End | Statu | | | | | | t | Date | s | | | | | | Date | | | + + +--------+---------+------+------+-------+ | aspirin 81 MG | Take 81 mg by mouth | | | | | Activ | | tablet | daily. | | | | | e | + + +--------+---------+------+------+-------+ | warfarin | Take 6 mg by mouth | | | | | Activ | | (COUMADIN) 5 MG | daily. | | | | | e | | tabletIndications: | | | | | | | | 0.5 pill sunday and | | | | | | | | sunday 1 pill | | | | | | | | other days | | | | | | | + + +--------+---------+------+------+-------+ | temazepam | Take 30 mg by mouth | | | | | Activ | | (RESTORIL) 30 MG | nightly as needed | | | | | e | | capsule | for Sleep. | | | | | | + + +--------+---------+------+------+-------+ | | Take 1,000 mg by | | | | | Activ | | Enbikwg-Fagkwbvbz-Ra | mouth 2 (two) times | | | | | e | | nc (DYU-UYV-VXFX PO) | daily. | | | | | | + + +--------+---------+------+------+-------+ | spironolactone | Take 1 tablet by | 90 | 3 | 08/0 | 03/1 | Activ | | (ALDACTONE) 25 MG | mouth daily. | tablet | | 04/24 | 03/27 | e | | tabletIndications: | | | | 17 | 28 | | | CKD (chronic kidney | | | | | | | | disease), stage III | | | | | | | | ([facility]), Proteinuria | | | | | | | + + +--------+---------+------+------+-------+ | baclofen | Take 20 mg by mouth | | | | | Activ | | (LIORESAL) 20 MG | 3 (three) times | | | | | e | | tablet | daily. | | | | | | + + +--------+---------+------+------+-------+ | ropinirole | Take 4 mg by mouth | | | | | Activ | | (REQUIP) 4 MG tablet | nightly. | | | | | e | + + +--------+---------+------+------+-------+ | tamsulosin | Take 0.4 mg by mouth | | | | | Activ | | (FLOMAX) 0.4 MG | daily. | | | | | e | | capsule | | | | | | | + + +--------+---------+------+------+-------+ | verapamil | Take 180 mg by mouth | | | | | Activ | | (CALAN-SR) 180 MG CR | nightly. | | | | | e | | tablet | | | | | | | + + +--------+---------+------+------+-------+ | atorvastatin | Take 2 tablets by | 30 | 11 | 02/1 | | Activ | | (LIPITOR) 20 MG | mouth nightly. | tablet | | 2/20 | | e | | tablet | | | | 18 | | | + + +--------+---------+------+------+-------+ | Ascorbic Acid | Take 500 mg by | | | | | Activ | | (VITAMIN C) 500 MG | mouth. | | | | | e | | CAPS | | | | | | | + + +--------+---------+------+------+-------+ | ferrous sulfate, | Take 65 mg of iron | | | | | Activ | | 65 FE, 324 (65 FE) | by mouth 3 (three) | | | | | e | | MG EC tablet | times daily with | | | | | | | | meals. | | | | | | + + +--------+---------+------+------+-------+ | gabapentin | Take 600 mg by mouth | | | 07/06 | | Activ | | (NEURONTIN) 600 MG | 3 (three) times | | | 10/25 | | e | | tablet | daily. | | | 18 | | | + + +--------+---------+------+------+-------+ | Cyanocobalamin | Take by mouth. | | | | | Activ | | (VITAMIN B 12) 100 | | | | | | e | | SANTOS MORALES | | | | | | | + + +--------+---------+------+------+-------+ | losartan (COZAAR) | Take 100 mg by mouth | | | | | Activ | | 100 MG tablet | daily. | | | | | e | + + +--------+---------+------+------+-------+ Active Problems + + + | Problem | Noted Date | + + + | Tobacco abuse | 08/14/2016 | + + + | Proteinuria | 06/13/2016 | + + + | CKD (chronic kidney disease), stage III | 06/13/2016 | + + + | Primary osteoarthritis involving multiple joints | 06/13/2016 | + + + | History of mitral valve replacement with mechanical valve | 07/06/2002 | + + + + + | Overview: [facility] for IE | + + + +---+ | Hypertension | | + +---+ | Hyperlipidemia | | + +---+ | Chronic kidney disease | | + +---+ + + | Overview: Stage III, with proteinuria | + + + +---+ | Aortic stenosis, mild | | + +---+ | Aortic stenosis, moderate | | + +---+ Family History + + +------+ + | Medical History | Relation | Name | Comments | + + +------+ + | Diabetes type II | Brother | | | + + +------+ + | Coronary art dis | Brother | | CABG | + + +------+ + | Neurologic Disorder | Brother | | MS | + + +------+ + | Cancer | Father | | prostate CA | + + +------+ + | Hypertension | Father | | | + + +------+ + | Stroke | Father | | | + + +------+ + | Hypertension | Mother | | | + + +------+ + | Stroke | Mother | | | + + +------+ + + +------+ + + | Relation | Name | Status | Comments | + +------+ + + | Brother | | Alive | | + +------+ + + | Brother | | Alive | | + +------+ + + | Brother | | Alive | | + +------+ + + | Daughter | | Alive | | + +------+ + + | Father | | | | | | | (Age | | | | | 75) | | + +------+ + + | Mother | | | "heart gave out" | | | | (Age | | | | | 93) | | + +------+ + + | Son | | | pneumonia, hemoptysis | | | | (Age | | | | | 35) | | + +------+ + + Social History + +-------+ +--------+------+ | Tobacco Use | Types | Packs/Day | Years | Date | | | | | Used | | + +-------+ +--------+------+ | Former Smoker | | | 6 | | + +-------+ +--------+------+ + +---+---+ + | Smokeless Tobacco: | | | Quit: | | Former User | | | 11/29/19 | | | | | 03 | + +---+---+ + + + | Tobacco Cessation: Ready to Quit: Yes; Counseling Given: Yes | | Comments: 3 cigarillos per day | + + + + +---------+ + | Alcohol Use | Drinks/We | oz/Week | Comments | | | ek | | | + + +---------+ + | Yes | | | very seldom | + + +---------+ + + + + | Sex Assigned at | Date Recorded | | | | + + + | Not on file | | + + + Last Filed Vital Signs + + + + | Vital Sign | Reading | Time Taken | + + + + | Blood Pressure | 132/60 | 04/16/2018 11:59 AM PDT | + + + + | Pulse | 72 | 04/16/2018 11:59 AM PDT | + + + + | Temperature | 36.4 C (97.5 F) | 08/17/2017 9:37 AM PDT | + + + + | Respiratory Rate | 18 | 04/19/2017 12:43 PM PDT | + + + + | Oxygen Saturation | 99% | 04/16/2018 11:59 AM PDT | + + + + | Inhaled Oxygen | - | - | | Concentration | | | + + + + | Weight | 99.1 kg (218 lb 8 | 04/16/2018 11:59 AM PDT | | | oz) | | + + + + | Height | 177.8 cm (5' 10") | 04/16/2018 11:59 AM PDT | + + + + | Body Mass Index | 31.35 | 04/16/2018 11:59 AM PDT | + + + + Plan of Treatment + + + + + | Health Maintenance | Due Date | Last Done | Comments | + + + + + | Colon Cancer | | | | | Screening | 2 | | | | (Colonoscopy) | | | | + + + + + | Vaccine: Zoster (1 | | | | | of 2) | 2 | | | + + + + + | Vaccine: | | | | | Pneumococcal 65+ | 7 | | | | Low/Medium Risk (1 | | | | | of 2 - PCV13) | | | | + + + + + | Vaccine: Influenza | | | | | (#1) | 9 | | | + + + + + | Vaccine: | | 07/22/2018 | | | Dtap/Tdap/Td (2 - | 9 | | | | Td) | | | | + + + + + Results Not on filefrom Last 3 Months Insurance + +--------+ +------+-------+ + | Payer | Benefi | Subscriber | Type | Phone | Address | | | t Plan | ID | | | | | | / | | | | | | | Group | | | | | + +--------+ +------+-------+ + | MEDICARE | MEDICA | [id number] | | | [address] | | | [place] | | | | [place] [phone] | | | IP-OP | | | | | + +--------+ +------+-------+ + | COMMERCIAL OTHER | COMMER | [id number] | | | | | | CIAL | | | | | | | GENERI | | | | | | | C PLAN | | | | | + +--------+ +------+-------+ + + +--------+ +--------+ + + | Guarantor Name | Accoun | Relation to | Date | Phone | Billing Address | | | t Type | Patient | of | | | | | | | | | | + +--------+ +--------+ + + | BASILIA CASTANEDA | Person | Self | [birth year] | Home: | [address] | | al/Fam | | 1950 | [phone] [place] | | | [place] | | | [phone] | [phone] | + +--------+ +--------+ + +
--- OUTSIDE RECORDS SUMMARY | ~2019-02-03 | XMS | Encounter Summary ---
Demographics + + + | Address | [address] | | | [place] [address] | + + + | Home Phone | | + + + | Preferred Language | Unknown | + + + | Marital Status | | + + + | Confucianist Affiliation | CAT | + + + | Race | White | + + + | Ethnic Group | Not or | + + + Author + + + | Author | [facility] | + + + | Organization | [facility] | + + + | Address | Unknown | + + + | Phone | Unavailable | + + + Support + + +---------+ + | Name | Relationship | Address | Phone | + + +---------+ + | Ai Castaneda | ECON | Unknown | | + + +---------+ + | Tammie Leblanc | ECON | Unknown | | + + +---------+ + Care Team Providers + +------+ + | Care Model Builder Name | Role | Phone | + +------+ + PCP | Unavailable | + +------+ + Encounter Details +--------+ + + + + | Date | Type | Department | Care Team | Description | +--------+ + + + + | 07/04/ | Procedure - | UNKNOWN DEPARTMENT | Other, Faculty | ECHO (CHRISTINE or TTE) | | 2002 | | [address] [facility] | [phone] | | | | Transcribed | [address] | | | | | | [place], [place] | | | | | | [address] | | | +--------+ + + + + [...] + + documented as of this encounter Progress Notes Other, Faculty - 07/04/2002 12:00 AM PDTAssociated Order(s): TRANSTHORACIC ECHOCARDIOGRAM, ADULT [facility] DATE: 07/04/02 [place], [place] MED REC NO: [id number] NAME: BASILIA CASTANEDA ECHOCARDIOGRAPHY REPORT BIRTHDATE: [birth year] INDICATION FOR STUDY: ENDOCARDITIS, R/O VEGETATION UNIT: 8DVA STUDY NO: [id number] TAPE NO. [id number] FRAME NO. 35:00-53:00 TECH: SD COLOR FLOW 2D & DOPPLER INTERPRETATION CHRISTINE REPORT. SINUS TACHYCARDIA NOTED. 1. CHAMBERS: NORMAL LEFT VENTRICULAR SIZE. SUPRANORMAL EJECTION FRACTION. HYPERDYNAMIC WALL MOTION. NORMAL RIGHT VENTRICULAR SIZE AND SYSTOLIC FUNCTION. MILD LEFT ATRIAL ENLARGEMENT. NORMAL RIGHT ATRIAL SIZE. RIGHT HEART CATHETER IS VISIBLE IN THE RIGHT ATRIUM. AORTA IS NORMAL IN SIZE AND APPEARANCE. 2. VALVES: NORMAL TRILEAFLET AORTIC VALVE. LEAFLET MOTION IS NORMAL. THERE IS A 9X12MM VERRUCOUS LESION ON THE ATRIAL ASPECT OF THE ANTERIOR MITRAL LEAFLET. IT IS NOT PARTICULARLY MOBILE. THE VALVE APPEARS OTHERWISE STRUCTURALLY NORMAL EXCEPT THAT THE POSTERIOR LEAFLET MAY BE SOMEWHAT ELONGATE. FURTHERMORE THE ANTERIOR LEAFLET DOES BUCKLE THROUGH THE PLANE OF THE ANNULUS BY END-SYSTOLE. NORMAL TRICUSPID AND PULMONIC VALVES. 3. DOPPLER/COLOR FLOW: MILD MITRAL REGURGITATION. NO TRICUSPID REGURGITATION. 4. PERICARDIUM: NO PERICARDIAL EFFUSION NOTED. 5. PART OF THE ATRIAL SEPTUM IS ANEURYSMAL. A BUBBLE STUDY WAS PERFORMED AND WAS NEGATIVE FOR SHUNT FLOW. 6. IMPRESSIONS: NORMAL LEFT VENTRICULAR SIZE WITH HYPERDYNAMIC FUNCTION. LARGE VEGETATION OR ANTERIOR MITRAL LEAFLET, WITHOUT HEMODYNAMICALLY IMPORTANT MITRAL REGURGITATION. THERE ARE SOME FINDINGS SUGGESTIVE OF (MILD) UNDERLYING MYXOURABOUS MITRAL VALVE DISEASE. THE AORTIC VALVE IS WELL SEEN AND IS FREE OF DISEASE. Lizette GALLAGHER documented in this encou nter Plan of Treatment +--------+---------+ + + + | Date | Type | Specialty | Care Team | Description | +--------+---------+ + + + | 04/30/ | Office | Neurological Surgery | Michael Durbin MD | | | 2019 | Visit | | [address] | | | | | | [address] | | | | | | [place] [address] | | | | | | [phone] | | | | | | | | +--------+---------+ + + + documented as of this encounter Procedures + +--------+ + + + | Procedure Name | Priori | Date/Time | Associated Diagnosis | Comments | | | ty | | | | + +--------+ + + + | TRANSTHORACIC | | 07/04/2002 | | Results for this | | ECHOCARDIOGRAM, | | 12:00 AM | | procedure are in the | | ADULT | | PDT | | results section. | + +--------+ + + + documented in this encounter Results TRANSTHORACIC ECHOCARDIOGRAM, ADULT (07/04/2002 12:00 AM PDT) + + | Procedure Note | + + | Other, Faculty - 07/04/2002 12:00 AM PDT [facility] DATE: | | 07/04/02 [place], [place] MED REC NO: [id number] NAME: BASILIA CASTANEDA | | ECHOCARDIOGRAPHY REPORT BIRTHDATE: [birth year] INDICATION FOR STUDY: ENDOCARDITIS, R/O | | VEGETATION UNIT: 8DVA STUDY NO: [id number] TAPE NO. [id number] FRAME NO. 35:00-53:00 TECH: | | SD COLOR | | FLOW 2D & DOPPLER INTERPRETATION | | CHRISTINE REPORT. | | SINUS TACHYCARDIA NOTED. 1. CHAMBERS: NORMAL LEFT VENTRICULAR SIZE. SUPRANORMAL | | EJECTION FRACTION. HYPERDYNAMIC WALL MOTION. NORMAL RIGHT VENTRICULAR SIZE AND SYSTOLIC | | FUNCTION. MILD LEFT ATRIAL ENLARGEMENT. NORMAL RIGHT ATRIAL SIZE. RIGHT HEART CATHETER | | IS VISIBLE IN THE RIGHT ATRIUM. AORTA IS NORMAL IN SIZE AND APPEARANCE. 2. VALVES: | | NORMAL TRILEAFLET AORTIC VALVE. LEAFLET MOTION IS NORMAL. THERE IS A 9X12MM VERRUCOUS | | LESION ON THE ATRIAL ASPECT OF THE ANTERIOR MITRAL LEAFLET. IT IS NOT PARTICULARLY | | MOBILE. THE VALVE APPEARS OTHERWISE STRUCTURALLY NORMAL EXCEPT THAT THE POSTERIOR | | LEAFLET MAY BE SOMEWHAT ELONGATE. FURTHERMORE THE ANTERIOR LEAFLET DOES BUCKLE THROUGH | | THE PLANE OF THE ANNULUS BY END-SYSTOLE. NORMAL TRICUSPID AND PULMONIC VALVES. 3. | | DOPPLER/COLOR FLOW: MILD MITRAL REGURGITATION. NO TRICUSPID REGURGITATION. 4. | | PERICARDIUM: NO PERICARDIAL EFFUSION NOTED. 5. PART OF THE ATRIAL SEPTUM IS ANEURYSMAL. | | A BUBBLE STUDY WAS PERFORMED AND WAS NEGATIVE FOR SHUNT FLOW. 6. IMPRESSIONS: NORMAL | | LEFT VENTRICULAR SIZE WITH HYPERDYNAMIC FUNCTION. LARGE VEGETATION OR ANTERIOR MITRAL | | LEAFLET, WITHOUT HEMODYNAMICALLY IMPORTANT MITRAL REGURGITATION. THERE ARE SOME FINDINGS | | SUGGESTIVE OF (MILD) UNDERLYING MYXOURABOUS MITRAL VALVE DISEASE. THE AORTIC VALVE IS | | WELL SEEN AND IS FREE OF DISEASE. Warren GALLAGHER. | | THE RIGHT ATRIUM. AORTA IS NORMAL IN SIZE AND APPEARANCE. | | | | 2. VALVES: NORMAL TRILEAFLET AORTIC VALVE. LEAFLET MOTION IS | | NORMAL. THERE IS A 9X12MM VERRUCOUS LESION ON THE ATRIAL ASPECT | | OF THE ANTERIOR MITRAL LEAFLET. IT IS NOT PARTICULARLY MOBILE. | | THE VALVE APPEARS OTHERWISE STRUCTURALLY NORMAL EXCEPT THAT THE | | POSTERIOR LEAFLET MAY BE SOMEWHAT ELONGATE. FURTHERMORE THE | | ANTERIOR LEAFLET DOES BUCKLE THROUGH THE PLANE OF THE ANNULUS BY | | END-SYSTOLE. NORMAL TRICUSPID AND PULMONIC VALVES. | | | | 3. DOPPLER/COLOR FLOW: MILD MITRAL REGURGITATION. NO TRICUSPID | | REGURGITATION. | | | | 4. PERICARDIUM: NO PERICARDIAL EFFUSION NOTED. | | | | 5. PART OF THE ATRIAL SEPTUM IS ANEURYSMAL. A BUBBLE STUDY WAS | | PERFORMED AND WAS NEGATIVE FOR SHUNT FLOW. | | | | 6. IMPRESSIONS: NORMAL LEFT VENTRICULAR SIZE WITH HYPERDYNAMIC | | FUNCTION. LARGE VEGETATION OR ANTERIOR MITRAL LEAFLET, WITHOUT | | HEMODYNAMICALLY IMPORTANT MITRAL REGURGITATION. THERE ARE SOME | | FINDINGS SUGGESTIVE OF (MILD) UNDERLYING MYXOURABOUS MITRAL | | VALVE DISEASE. THE AORTIC VALVE IS WELL SEEN AND IS FREE OF | | DISEASE. | | | | | | | | Warren GALLAGHER. | | | | | | | + + documented in this encounter Visit Diagnoses Not on filedocumented in this encounter"
--- OUTSIDE RECORDS SUMMARY | ~2019-02-03 | XMS | Encounter Summary ---
Demographics + + + | Address | [address] | | | [place] [address] | + + + | Home Phone | | + + + | Preferred Language | Unknown | + + + | Marital Status | | + + + | Moravian Affiliation | 1041 | + + + | Race | Unknown | + + + | Ethnic Group | Unknown | + + + Author + + + | Author | [facility] | | | and [place] | + + + | Organization | [facility] | | | and [place] | + + + | Address | Unknown | + + + | Phone | Unavailable | + + + Support + + + + + | Name | Relationship | Address | Phone | + + + + + | Ai De La Paz | [place] | [address] | | | | | [place] | | | | | [address] | | + + + + + Care Team Providers + +------+ + | Care Blasting Cap Assembler Name | Role | Phone | + +------+ + | Bartolome Frederick DO | PCP | | + +------+ + Encounter Details +--------+ + + + + | Date | Type | Department | Care Team | Description | +--------+ + + + + | 08/28/ | Orders Only | [facility] | Conversion | | | 2017 | | NEPHROLOGY [place] | Transaction, | | | | | [address] | Provider Unknown | | | | | [address] [place], [place] | | | | | | [phone] | (Fax) | | | | | [phone] | | | +--------+ + + + + Social History + +--------+ +--------+------+ | Tobacco Use | Types | Packs/Day | Years | Date | | | | | Used | | + +--------+ +--------+------+ | Current Some Day | Cigars | | | | | Smoker | | | | | + +--------+ +--------+------+ + +-------+---+---+ | Smokeless Tobacco: | Snuff | | | | Former User | | | | + +-------+---+---+ + + | Comments: Lisseth Elizabeth in 2002 | + + + + +---------+ + | Alcohol Use | Drinks/Week | oz/Week | Comments | + + +---------+ + | No | | | | + + +---------+ + + + [...] Description | +--------+---------+ + + + | 02/19/ | Office | Nephrology | Ismael Young MD | | | 2020 | Visit | | [address] [facility] | | | | | | [address] [place] | | | | | | [address] | | | | | | (Fax) | | +--------+---------+ + + + documented as of this encounter Procedures + +--------+ + + + | Procedure Name | Priori | Date/Time | Associated Diagnosis | Comments | | | ty | | | | + +--------+ + + + | BASIC METABOLIC | Routin | 08/28/2016 | | Results for this | | PANEL | e | 7:56 AM | | procedure are in the | | | | PDT | | results section. | + +--------+ + + + documented in this encounter Results Basic Metabolic Panel (08/28/2016 7:56 AM PDT) + + + + + + | Component | Value | Ref Range | Performed | Pathologist | | | | | At | Signature | + + + + + + | Glucose, | 105 (A) | 70 - 100 mg/dL | EXTERNAL | | | Fasting | | | LAB | | + + + + + + | BUN | 40 (A) | 6 - 23 mg/dL | EXTERNAL | | | | | | LAB | | + + + + + + | Creatinine | 1.35 (A) | 0.70 - 1.25 | EXTERNAL | | | | | mg/dL | LAB | | + + + + + + | BUN/Creatin | 29.6 (A) | 6.0 - 28.6 | EXTERNAL | | | ine Ratio | | | LAB | | + + + + + + | Calcium | 9.8 | 8.4 - 10.2 | EXTERNAL | | | | | mg/dL | LAB | | + + + + + + | Na | 136 | 132 - 143 | EXTERNAL | | | | | mmol/L | LAB | | + + + + + + | K | 4.6 | 3.6 - 5.1 | EXTERNAL | | | | | mmol/L | LAB | | + + + + + + | Cl | 104 | 95 - 112 mmol/L | EXTERNAL | | | | | | LAB | | + + + + + + | CO2 | 21 | 19 - 31 mmol/L | EXTERNAL | | | | | | LAB | | + + + + + + | Anion Gap | 15.6 | 7 - 21 mmol/L | EXTERNAL | | | | | | LAB | | + + + + + + | Estimated | 53 | mg/dL | EXTERNAL | | | GFR | | | LAB | | + + + + + + + + | Specimen | + + | Blood specimen | | (specimen) | + + + +---------+ + + | Performing | Address | City/State/Zipcode | Phone Number | | Organization | | | | + +---------+ + + | EXTERNAL LAB | | | | + +---------+ + + documented in this encounter Visit Diagnoses Not on filedocumented in this encounter"
--- OUTSIDE RECORDS SUMMARY | ~2019-02-03 | XMS | Encounter Summary ---
Demographics + + + | Address | [address] | | | [place] [address] | + + + | Home Phone | | + + + | Preferred Language | Unknown | + + + | Marital Status | | + + + | Restorationist Affiliation | 1041 | + + + | Race | Unknown | + + + | Ethnic Group | Unknown | + + + Author + + + | Author | [facility] | | | and [place] | + + + | Organization | [facility] | | | [...] [place] | | | | | [address] | | + + + + + Care Team Providers + +------+ + | Care Infrastructure Analyst Name | Role | Phone | + +------+ + | Bartolome Frederick DO | PCP | | + +------+ + Encounter Details +--------+ + + + + | Date | Type | Department | Care Team | Description | +--------+ + + + + | 09/18/ | Orders Only | [facility] | Samy Jennings, | | | 2018 | | CONVERSION [address] | [address] | | | | | [address] | [place] [facility] [place], | | | | | [place], [place] | [place] [address] | | | | | [address] | [phone] | | | | | [phone] | | | +--------+ + + + + Social History + +--------+ +--------+ + | Tobacco Use | Types | Packs/Day | Years | Date | | | | | Used | | + +--------+ +--------+ + | Former Smoker | Cigars | 0.06 | 12 | 2006 - 03/03/2018 | + +--------+ +--------+ + + +-------+---+---+ | Smokeless Tobacco: | Snuff | | | | Current User | | | | + +-------+---+---+ + + + + + | Alcohol Use | Drinks/Week | oz/Week | Comments | + + + + + | Yes | 0 Glasses of wine | 0.0 - 1.0 | Four beers once per | | | 0 Cans of beer 0 | | year (during | | | Shots of liquor 0-1 | | Erhard) | | | Standard drinks or | | | | | equivalent | | | + + + + + + + + + | Alcohol Habits | Answer | Date Recorded | + + + + | How often do you have a drink containing | Monthly or less | 06/04/2018 | | alcohol? | | | + + + + | How many drinks containing alcohol do you | 1 or 2 | 06/04/2018 | | have on a typical day when you are | | | | drinking? | | | + + + + | How often do you have six or more drinks on | Never | 06/04/2018 | | one occasion? | | | + + + + + + + | Sex Assigned [...] 2019 | Visit | | [address] [facility] [place] | | | | | | [address] [place], [place] | | | | | | [address] | | | | | | | | +--------+---------+ + + + documented as of this encounter Procedures + +--------+ + + + | Procedure Name | Priori | Date/Time | Associated Diagnosis | Comments | | | ty | | | | + +--------+ + + + | ECHO INTERPRETATION | Routin | 09/18/2018 | | Results for this | | OF OUTSIDE FILMS | e | 5:08 PM | | procedure are in the | | | | PDT | | results section. | + +--------+ + + + documented in this encounter Results ECHO Interpretation of Outside Films (09/18/2018 5:08 PM PDT) + + | Specimen | + + | | + + + + + | Impressions | Performed At | + + + | 1. Overall left ventricular systolic function is low-normal with an | | | EF about 55%. 2. There is mild concentric left ventricular | | | hypertrophy and mild asymmetric septal hypertrophy. 3. The right | | | ventricle is normal in size and function. 4. The left atrium is | | | markedly enlarged by volume. 5. Mild aortic stenosis with peak/mean | | | pressure gradients of 27.20mmHg / 17.49mmHg, the aortic valve area by | | | continuity equation is 1.6cm . There is also mild aortic | | | regurgitation. 6. The [address] Donald mechanical MVR is well seated, | | | with normal function. 7. There is borderline pulmonary hypertension. | | | 8. There are only mild changes noted in comparison to the previous | | | echocardiographic study, done 11/29/17, as reported below. | | + + + + + + | Narrative | Performed At | + + + | Patient Name: Lupillo De La Paz Date of : 1950 | | | Performing Physician: SAMY JENNINGS MD | | | | | | INDICATIONS Mechanical 31 mm Mitral valve replacement, | | | Aortic stenosis CONCLUSIONS 1. Overall left | | | ventricular systolic function is low-normal with an EF about 55%. 2. | | | There is mild concentric left ventricular hypertrophy and mild | | | asymmetric septal hypertrophy. 3. The right ventricle is normal in | | | size and function. 4. The left atrium is markedly enlarged by volume. | | | 5. Mild aortic stenosis with peak/mean pressure gradients of | | | 27.20mmHg / 17.49mmHg, the aortic valve area by continuity equation is | | | 1.6cm . There is also mild aortic regurgitation. 6. The 31 mm | | | [facility] Donald mechanical MVR is well seated, with normal function. 7. | | | There is borderline pulmonary hypertension. 8. There are only mild | | | changes noted in comparison to the previous echocardiographic study, | | | done 11/29/17, as reported below. FINDINGS -------- ECG rhythm: | | | Sinus rhythm. Study: A 2-dimensional transthoracic echocardiogram | | | with m-mode, spectral and color flow Doppler was perfomed at [facility]. | | | Study: This was a technically adequate study except for Study: poor | | | subcostal views. Left Ventricle: Overall left ventricular systolic | | | function is low-normal with an EF about 55%. Left Ventricle: The left | | | ventricle cavity size is normal. Left Ventricle: There is mild | | | concentric left ventricular hypertrophy. Left Ventricle: No regional | | | wall motion abnormalities. Left Ventricle: Mild asymmetric septal | | | hypertrophy with septal thickness 13 mm. Left Ventricle: The | | | prosthetic mitral valve prevents accurate assessment of diastolic | | | function. Right Ventricle: The right ventricle is normal in size and | | | function. Left Atrium: The left atrium is markedly enlarged by | | | volume. It was only mild-moderately enlarged on the prior exam. Right | | | Atrium: The right atrium is normal in size. Aortic Valve: Aortic | | | valve is moderately thickened. Aortic Valve: The aortic valve appears | | | to be trileaflet. Aortic Valve: The aortic valve is moderately | | | calcified, with mild leaflet restriction on 2-D images. Aortic Valve: | | | There is mild aortic regurgitation. Aortic Valve: Mild aortic | | | stenosis with peak/mean pressure gradients of 27.20mmHg / 17.49mmHg | | | (essentially unchanged from 28 / 15 mm Hg, as measured on the prior | | | study), the aortic valve area by continuity equation is 1.6cm | | | (it was calculated at 1.1 cm previously. Aortic Valve: The | | | maximum velocity across the aortic valve is 2.61m/s (slightly | | | decreased from 2.7 m/s on the prior exam). Mitral Valve: The 31 mm | | | [address] Donald mechanical MVR is well seated, with normal function. Mitral | | | Valve: Mitral valve peak/ mean gradient is 11.41mmHg / 3.46mmHg, | | | slightly decreased from peak/ mean gradients of 16 / 7 mm Hg, | | | respectively, on the previous exam. Tricuspid Valve: The tricuspid | | | valve appears structurally normal. Tricuspid Valve: Mild tricuspid | | | regurgitation is present, unchanged from the prior study. Tricuspid | | | Valve: There is borderline pulmonary hypertension. Tricuspid Valve: | | | The right ventricular systolic pressure (pulmonary artery systolic | | | pressure), as measured by Doppler, is 35.11mmHg, essentially unchanged | | | from the previous study. Pulmonic Valve: Mild pulmonic | | | regurgitation. Pericardium: There is no pericardial effusion. | | | IVC/Hepatic Veins: The IVC is normal size (1.5-2.5cm) and collapses | | | >50% with sniff, consistent with central venous pressures of 5-10mmHg. | | | Aorta: The aortic root, ascending aorta and aortic arch are normal. | | | The aortic root was minimally enlarged on the previous study. Mass: | | | No mass visualized Thrombus: No clot visualized Thrombus: No | | | vegetation visualized. Septum: No ASD observed. Septum: No VSD | | | observed. MEASUREMENTS Ao asc: 3.63 cm Ao | | | Diam: 3.46 cm Ao sinus: 3.[address] junct: 3.25 cm IVC: | | | 2.16 cm EDV(Teich): 101.79 ml IVSd: 1.31 cm LVIDd: 4.68 | | | cm LVPWd: 1.17 cm LVOT Diam: 2.44 cm %FS: 29.15 % | | | EF(Teich): 55.94 % ESV(Teich): 44.84 ml LVIDs: 3.32 cm | | | SV(Teich): 56.95 ml RV Major: 8.41 cm RV Minor: 3.07 cm RV | | | Minor: 3.28 cm LVEF MOD A2C: 48.12 % SV MOD A2C: 59.60 ml | | | LVEF MOD A4C: 56.28 % SV MOD A4C: 114.98 ml EF Biplane: | | | 51.76 % LVEDV MOD BP: 150.14 ml LVESV MOD BP: 72.42 ml LVEDV | | | MOD A2C: 123.85 ml LVLd A2C: 9.44 cm LVEDV MOD A4C: 204.28 | | | ml LVLd A4C: 9.68 cm LVESV MOD A2C: 64.25 ml LVLs A2C: | | | 8.00 cm LVESV MOD A4C: 89.29 ml LVLs A4C: 8.02 cm LAESV(A-L): | | | 107.61 ml LAESV Index (A-L): 52.75 ml/m2 LAAs A2C: 24.11 | | | cm2 LAESV A-L A2C: 85.98 ml LAESV MOD A2C: 82.15 ml LALs A2C: | | | 5.73 cm LAAs A4C: 30.17 cm2 LAESV A-L A4C: 129.70 ml | | | LAESV MOD A4C: 122.91 ml LALs A4C: 5.96 cm RAAs: 16.01 cm2 | | | RAESV A-L: 37.57 ml RAESV MOD: 37.84 ml RALs: 5.79 cm | | | TAPSE: 2.05 cm AV Env.Ti: 313.72 ms AV maxP.20 mmHg | | | AV meanP.48 mmHg AV Vmax: 2.60 m/s AV Vmean: 2.02 m/s | | | AV VTI: 63.42 cm KORTNEY Vmax: 1.55 cm2 KORTNEY (VTI): 1.62 cm2 | | | AVAI Vmax: 0.00 cm2/m2 AVAI (VTI): 0.00 cm2/m2 LVOT Env.Ti: | | | 356.12 ms LVOT maxP.96 mmHg LVOT meanP.72 mmHg LVSI | | | Dopp: 50.62 ml/m2 LVSV Dopp: 103.27 ml LVOT Vmax: 0.86 m/s | | | LVOT Vmean: 0.61 m/s LVOT VTI: 21.99 cm MV A Scott: 0.85 m/s | | | MV Dec Cecil: 5.36 m/s2 MV DecT: 290.24 ms MV E Scott: 1.55 | | | m/s MV E/A Ratio: 1.81 MV maxP.40 mmHg MV meanPG: | | | 3.46 mmHg MV Vmax: 1.68 m/s MV Vmean: 0.82 m/s MV VTI: | | | 40.73 cm MVA (VTI): 2.53 cm2 RAP: 5 mmHg RV S': 0.08 m/s | | | RVSP: 35.11 mmHg TR maxP.11 mmHg TR Vmax: 2.74 m/s | | | Cash Posting Clerk: Authenticated by: SAMY JENNINGS MD Report Date/Time: | | | 09-19-2018 17:33:10 | | + + + + ----+ | Procedure Note | + ----+ | Thony Jiménez Conversion - 10/11/2018 9:04 AM PDT Patient Name: Jovanny De La Paz of | | : 1950 Performing Physician: SAMY JENNINGS, | | MD INDICATIONS M | | echanical 31 mm Mitral valve replacement, Aortic stenosis CONCLUSIONS 1. | | Overall left ventricular systolic function is low-normal with an EF about 55%.2. There | | is mild concentric left ventricular hypertrophy and mild asymmetric septal | | hypertrophy.3. The right ventricle is normal in size and function.4. The left atrium is | | markedly enlarged by volume.5. Mild aortic stenosis with peak/mean pressure gradients of | | 27.20mmHg / 17.49mmHg, the aortic valve area by continuity equation is 1.6cm . | | There is also mild aortic regurgitation.6. The [address] Donald mechanical MVR is well | | seated, with normal function.7. There is borderline pulmonary hypertension. 8. There are | | only mild changes noted in comparison to the previous echocardiographic study, done | | 11/29/17, as reported below. FINDINGS--------ECG rhythm: Sinus rhythm.Study: A | | 2-dimensional transthoracic echocardiogram with m-mode, spectral and color flow Doppler | | was perfomed at [facility].Study: This was a technically adequate study except forStudy: poor | | subcostal views.Left Ventricle: Overall left ventricular systolic function is low-normal | | with an EF about 55%.Left Ventricle: The left ventricle cavity size is normal.Left | | Ventricle: There is mild concentric left ventricular hypertrophy.Left Ventricle: No | | regional wall motion abnormalities.Left Ventricle: Mild asymmetric septal hypertrophy | | with septal thickness 13 mm.Left Ventricle: The prosthetic mitral valve prevents | | accurate assessment of diastolic function.Right Ventricle: The right ventricle is normal | | in size and function.Left Atrium: The left atrium is markedly enlarged by volume. It | | was only mild-moderately enlarged on the prior exam.Right Atrium: The right atrium is | | normal in size.Aortic Valve: Aortic valve is moderately thickened.Aortic Valve: The | | aortic valve appears to be trileaflet.Aortic Valve: The aortic valve is moderately | | calcified, with mild leaflet restriction on 2-D images.Aortic Valve: There is mild | | aortic regurgitation.Aortic Valve: Mild aortic stenosis with peak/mean pressure | | gradients of 27.20mmHg / 17.49mmHg (essentially unchanged from 28 / 15 mm Hg, as | | measured on the prior study), the aortic valve area by continuity equation is | | 1.6cm (it was calculated at 1.1 cm previously.Aortic Valve: The maximum | | velocity across the aortic valve is 2.61m/s (slightly decreased from 2.7 m/s on the | | prior exam).Mitral Valve: The [address] Donald mechanical MVR is well seated, with normal | | function.Mitral Valve: Mitral valve peak/ mean gradient is 11.41mmHg / 3.46mmHg, | | slightly decreased from peak/ mean gradients of 16 / 7 mm Hg, respectively, on the | | previous exam.Tricuspid Valve: The tricuspid valve appears structurally normal.Tricuspid | | Valve: Mild tricuspid regurgitation is present, unchanged from the prior | | study.Tricuspid Valve: There is borderline pulmonary hypertension.Tricuspid Valve: The | | right ventricular systolic pressure (pulmonary artery systolic pressure), as measured by | | Doppler, is 35.11mmHg, essentially unchanged from the previous study.Pulmonic Valve: | | Mild pulmonic regurgitation.Pericardium: There is no pericardial effusion.IVC/Hepatic | | Veins: The IVC is normal size (1.5-2.5cm) and collapses >50% with sniff, consistent with | | central venous pressures of 5-10mmHg.Aorta: The aortic root, ascending aorta and aortic | | arch are normal. The aortic root was minimally enlarged on the previous study.Mass: No | | mass visualizedThrombus: No clot visualizedThrombus: No vegetation visualized.Septum: No | | ASD observed.Septum: No VSD observed. MEASUREMENTS Ao asc: 3.63 cmAo | | Diam: 3.46 cmAo sinus: 3.[address] junct: 3.25 cmIVC: 2.16 cmEDV(Teich): | | 101.79 mlIVSd: 1.31 cmLVIDd: 4.68 cmLVPWd: 1.17 cmLVOT Diam: 2.44 cm%FS: 29.15 | | %EF(Teich): 55.94 %ESV(Teich): 44.84 mlLVIDs: 3.32 cmSV(Teich): 56.95 mlRV | | Major: 8.41 cmRV Minor: 3.07 cmRV Minor: 3.28 cmLVEF MOD A2C: 48.12 %SV MOD A2C: | | 59.60 mlLVEF MOD A4C: 56.28 %SV MOD A4C: 114.98 mlEF Biplane: 51.76 %LVEDV MOD | | BP: 150.14 mlLVESV MOD BP: 72.42 mlLVEDV MOD A2C: 123.85 mlLVLd A2C: 9.44 | | cmLVEDV MOD A4C: 204.28 mlLVLd A4C: 9.68 cmLVESV MOD A2C: 64.25 mlLVLs A2C: 8.00 | | cmLVESV MOD A4C: 89.29 mlLVLs A4C: 8.02 cmLAESV(A-L): 107.61 mlLAESV Index (A-L): | | 52.75 ml/m2LAAs A2C: 24.11 [id number] A-L A2C: 85.98 mlLAESV MOD A2C: 82.15 | | mlLALs A2C: 5.73 cmLAAs A4C: 30.17 [id number] A-L A4C: 129.70 mlLAESV MOD A4C: | | 122.91 mlLALs A4C: 5.96 cmRAAs: 16.01 [id number] A-L: 37.57 mlRAESV MOD: 37.84 | | mlRALs: 5.79 cmTAPSE: 2.05 cmAV Env.Ti: 313.72 msAV maxP.20 mmHgAV meanPG: | | 17.48 mmHgAV Vmax: 2.60 m/Rob Vmean: 2.02 m/Rob VTI: 63.42 cmAVA Vmax: 1.55 | | cm2AVA (VTI): 1.62 [id number] Vmax: 0.00 cm2/m2AVAI (VTI): 0.00 cm2/m2LVOT Env.Ti: | | 356.12 msLVOT maxP.96 mmHgLVOT meanP.72 mmHgLVSI Dopp: 50.62 ml/m2LVSV | | Dopp: 103.27 mlLVOT Vmax: 0.86 m/sLVOT Vmean: 0.61 m/sLVOT VTI: 21.99 cmMV A | | Scott: 0.85 m/sMV Dec Cecil: 5.36 m/s2MV DecT: 290.24 msMV E Scott: 1.55 m/sMV E/A | | Ratio: 1.81MV maxP.40 mmHgMV meanP.46 mmHgMV Vmax: 1.68 m/sMV Vmean: | | 0.82 m/sMV VTI: 40.73 cmMVA (VTI): 2.53 cm2RAP: 5 mmHgRV S': 0.08 m/sRVSP: | | 35.11 mmHgTR maxP.11 mmHgTR Vmax: 2.74 m/s Cash Posting Clerk:Authenticated by: | | Marleen WOODARD Date/Time: 09-19-2018 17:33:10 IMPRESSION: 1. Overall left | | ventricular systolic function is low-normal with an EF about 55%.2. There is mild | | concentric left ventricular hypertrophy and mild asymmetric septal hypertrophy.3. The | | right ventricle is normal in size and function.4. The left atrium is markedly enlarged | | by volume.5. Mild aortic stenosis with peak/mean pressure gradients of 27.20mmHg / | | 17.49mmHg, the aortic valve area by continuity equation is 1.6cm . There is also | | mild aortic regurgitation.6. The [address] Donald mechanical MVR is well seated, with | | normal function.7. There is borderline pulmonary hypertension. 8. There are only mild | | changes noted in comparison to the previous echocardiographic study, done 11/29/17, as | | reported below. | |ESV(Teich): 44.84 ml | |LVIDs: 3.32 cm | |SV(Teich): 56.95 ml | |RV Major: 8.41 cm | |RV Minor: 3.07 cm | |RV Minor: 3.28 cm | |LVEF MOD A2C: 48.12 % | |SV MOD A2C: 59.60 ml | |LVEF MOD A4C: 56.28 % | |SV MOD A4C: 114.98 ml | |EF Biplane: 51.76 % | |LVEDV MOD BP: 150.14 ml | |LVESV MOD BP: 72.42 ml | |LVEDV MOD A2C: 123.85 ml | |LVLd A2C: 9.44 cm | |LVEDV MOD A4C: 204.28 ml | |LVLd A4C: 9.68 cm | |LVESV MOD A2C: 64.25 ml | |LVLs A2C: 8.00 cm | |LVESV MOD A4C: 89.29 ml | |LVLs A4C: 8.02 cm | |LAESV(A-L): 107.61 ml | |LAESV Index (A-L): 52.75 ml/m2 | |LAAs A2C: 24.11 cm2 | |LAESV A-L A2C: 85.98 ml | |LAESV MOD A2C: 82.15 ml | |LALs A2C: 5.73 cm | |LAAs A4C: 30.17 cm2 | |LAESV A-L A4C: 129.70 ml | |LAESV MOD A4C: 122.91 ml | |LALs A4C: 5.96 cm | |RAAs: 16.01 cm2 | |RAESV A-L: 37.57 ml | |RAESV MOD: 37.84 ml | |RALs: 5.79 cm | |TAPSE: 2.05 cm | |AV Env.Ti: 313.72 ms | |AV maxP.20 mmHg | |AV meanP.48 mmHg | |AV Vmax: 2.60 m/s | |AV Vmean: 2.02 m/s | |AV VTI: 63.42 cm | |KORTNEY Vmax: 1.55 cm2 | |KORTNEY (VTI): 1.62 cm2 | |AVAI Vmax: 0.00 cm2/m2 | |AVAI (VTI): 0.00 cm2/m2 | |LVOT Env.Ti: 356.12 ms | |LVOT maxP.96 mmHg | |LVOT meanP.72 mmHg | |LVSI Dopp: 50.62 ml/m2 | |LVSV Dopp: 103.27 ml | |LVOT Vmax: 0.86 m/s | |LVOT Vmean: 0.61 m/s | |LVOT VTI: 21.99 cm | |MV A Scott: 0.85 m/s | |MV Dec Cecil: 5.36 m/s2 | |MV DecT: 290.24 ms | |MV E Scott: 1.55 m/s | |MV E/A Ratio: 1.81 | |MV maxP.40 mmHg | |MV meanP.46 mmHg | |MV Vmax: 1.68 m/s | |MV Vmean: 0.82 m/s | |MV VTI: 40.73 cm | |MVA (VTI): 2.53 cm2 | |RAP: 5 mmHg | |RV S': 0.08 m/s | |RVSP: 35.11 mmHg | |TR maxP.11 mmHg | |TR Vmax: 2.74 m/s | | | |Cash Posting Clerk: | |Authenticated by: SAMY JENNINGS MD | |Report Date/Time: 09-19-2018 17:33:10 | | | |IMPRESSION: | |1. Overall left ventricular systolic function is low-normal with an EF about 55%. | |2. There is mild concentric left ventricular hypertrophy and mild asymmetric septal hypertr ophy. | |3. The right ventricle is normal in size and function. | |4. The left atrium is markedly enlarged by volume. | |5. Mild aortic stenosis with peak/mean pressure gradients of 27.20mmHg / 17.49mmHg, the aor tic valve area by continuity equation is 1.6cm . There is also mild aortic regurgitati on. | |6. The [address] Donald mechanical MVR is well seated, with normal function. | |7. There is borderline pulmonary hypertension. 8. There are only mild changes noted in comp lumason to the previous echocardiographic study, done 11/29/17, as reported below. | + ----+ documented in this encounter Visit Diagnoses Not on filedocumented in this encounter"
--- OUTSIDE RECORDS SUMMARY | ~2019-02-03 | XMS | Encounter Summary ---
Demographics + + + | Address | [address] | | | [place] [address] | + + + | Home Phone | | + + + | Preferred Language | Unknown | + + + | Marital Status | | + + + | Amish Affiliation | CAT | + + + | Race | White | + + + | Ethnic Group | Not or | + + + Author + + + | Author | [facility] | + + + | Organization | [facility] | + + + | Address | [...] Team Providers + +------+ + | Care Laboratory Equipment Installer Name | Role | Phone | + +------+ + | Bartolome Frederick DO | PCP | | + +------+ + Reason for Visit + + + | Reason | Comments | + + + | History and physical | Lumbar | | examination | | + + + Encounter Details +--------+---------+ + + + | Date | Type | Department | Care Team | Description | +--------+---------+ + + + | 10/24/ | Office | [facility] | Jaison Barber, | 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 | [facility]surgery at [facility] | PA-C [address] | of blood thinners | | | | [address] | [place], [place] | (Primary Dx); Lumbar | | | | [address] | [address] | spondylosis; | | | | [place], [place] | | Spondylolisthesis of | | | | [address] | | lumbar region; | | | | [phone] | | Lumbar degenerative | | | | | | disc disease; Lumbar | | | | | | foraminal stenosis; | | | | | | Lumbar | | | | | | radiculopathy | +--------+---------+ + + + Social History + +--------+ +--------+ + | Tobacco Use | Types | Packs/Day | Years | Date | | | | | Used | | + +--------+ +--------+ + | Former Smoker | Cigars | 1 | 6 | Quit: 03/03/2018 | + +--------+ +--------+ + + +------+---+---+ | Smokeless Tobacco: | Chew | | | | Current User | | | | + +------+---+---+ + + +---------+ + | Alcohol Use [...] + + documented as of this encounter Last Filed Vital Signs + + + + + | Vital Sign | Reading | Time Taken | Comments | + + + + + | Blood Pressure | 139/73 | 10/24/2018 2:55 PM | | | | | PDT | | + + + + + | Pulse | 76 | 10/24/2018 2:55 PM | | | | | PDT | | + + + + + | Temperature | 36.6 C (97.9 F) | 10/24/2018 2:55 PM | | | | | PDT | | + + + + + | Respiratory Rate | - | - | | + + + + + | Oxygen Saturation | 98% | 10/24/2018 2:55 PM | | | | | PDT | | + + + + + | Inhaled Oxygen | - | - | | | Concentration | | | | + + + + + | Weight | 94.9 kg (209 lb 3.5 | 10/24/2018 2:55 PM | | | | oz) | PDT | | + + + + + | Height | 177.8 cm (5' 10") | 10/24/2018 2:55 PM | | | | | PDT | | + + + + + | Body Mass Index | 30.02 | 10/24/2018 2:55 PM | | | | | PDT | | + + + + + documented in this encounter Patient Instructions Patient Instructions Jaison Barber PA-C - 10/24/2018 2:45 PM PDTPlease go back down to the 3rd floor anesthesia clinic for a blood draw for a CBC. Empty stomach before surgery On the day BEFORE your surgery, drink plenty of fluids and stay well hydrated NOTHING to eat or drink after midnight the night before surgery, or 8 hours prior to reggie magdy. This includes water, coffee, candy, mints, gum. Medications Instructions Hold ASPIRIN 10 days before surgery Take all your usual medications before surgery as you normally do until the morning of surg janusz, then follow the instructions below: DO NOT TAKE LOSARTAN THE NIGHT PRIOR TO SURGERY FOLLOW INSTRUCTIONS FROM THE ANTICOAGULATION CLINIC REGARDING COUMADIN. TAKE ONLY the following medications with a sip of water on the morning of surgery: NOTHING Unless otherwise directed by your surgeon, do not take any Aspirin, vitamin E or non-steroi marley anti-inflammatory (NSAIDs i.e. Advil, Aleve, Ibuprofen), herbal supplements, and Whiteford 3 Fish Oil 10 days prior to your surgery. These drugs may interfere with normal blood clotti ng and may cause excessive bleeding and bruising during or after the surgery. If you need a pain medication for general purposes, use Tylenol as directed. OK to take it even on the morning of surgery, if needed. If you are in doubt about any medications that you are taking, please contact our office . Other Important Guidelines Do not shave the surgical area Do not smoke, drink alcohol or use recreational drugs for 24 hours before your surgery Watch for any change in your health condition. Let your surgeon know right away if you do not feel well. Do not wear makeup, perfume, lotions, deodorant, powder or hairspray. Do not wear any jewelry to the hospital. Wear loose, comfortable clothing. Leave all your valuables at home. Allow enough travel time so you re not late for your check in for surgery. Take a bath or shower and remember to shampoo your hair using your usual hair product be fore your arrival at the hospital. Please remember to brush your teeth the night before and the morning of your procedure. Preventing post op complications while you are in the hospital Use an incentive spirometer or deep breathe to keep your lungs working properly an d to help prevent respiratory complications. It helps you take long, deep breaths. Use i t at least once every hour while you are awake. Leg and feet exercises will maintain good circulation and help prevent blood clots in yo ur legs. Sometimes your doctor will order air compression stockings. Compressed air help s the circulation in your legs. Walking and moving will help stimulate normal circulation and deep breathing. After yo ur surgery, your nurse may ask you to sit, stand or walk. Going Home Your surgical team will decide when you are medically ready to go home. If you are released to go home on the same day as your procedure/surgery please note the following: ? You will not be able to drive. ? You will be required to have a competent person drive you or accompany you by taxi or pub lic transportation on the day of discharge. ? It is also required that you have a competent person assist you and look after you on the first night after you have undergone regional blocks (72 hours for patients going home with regional block pump), deep sedation, and/or general anesthesia. If you stayed in the hospital after surgery, please arrange for your ride to come for yo u around 9AM on the day your doctor says you can go home. Check out time is 11AM. documented in this encounter Progress Notes Jaison Barber PA-C - 10/24/2018 2:45 PM PDT Neurosurgery - H&P Chief Complaint: History and physical examination (Lumbar) Referring Provider: Bartolome Frederick DO History of Present Illness: Mr. De La Paz, a 68 y.o. male, was seen today for a neurosurgical H&P in preparation for [facility] spine surgery. He is scheduled for extreme lateral interbody fusion L2-3 and L3-4 follo wed immediately by L2-3 and L3-4 minimally invasive posterior spinal fusion on November 06. He was seen in the office by Dr. Durbin on 09/13/2018 with complaints of continuous lower back p ain and RIGHT lower extremity pain that is described, today, as tingling. The RIGHT lower ex tremity pain travels down the posterolateral thigh to the level of the knee. His symptoms are exacerbated by standing, walking and bending. He is better at rest. There has bowel or bladder incontinence, although he notes some urinary urgency. Mr De La Paz has failed to achieve durable symptom control with massage, traction, PT, and mus yeimi relaxants. 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 He has nola sherman on chronic anticoagulation with warfarin since that time. He is followed by Deanna sherman at the [facility]. PAS appointment 10/24/2018 with no further optimization required. Cardiology clearance obtained (Dr Jennings) on 10/10/2018 (Media tab-Epic). Review of Systems Constitutional: Positive for malaise/fatigue. HENT: Positive for hearing loss. Eyes: Negative. Respiratory: Negative. Cardiovascular: Negative. Gastrointestinal: Bowel incontinence Genitourinary: Positive for frequency. Urinary incontinence Musculoskeletal: Bone pain Skin: Negative. Neurological: Positive for tingling. Numbness, muscle twitching, muscle cramps, lack of coordination, problems walking, los s of balance Endo/Heme/Allergies: Bruises/bleeds easily. Psychiatric/Behavioral: Negative. Allergies Allergen Reactions Penicillins Anaphylaxis Stopped breathing Bee Pollen Pruritus and Unknown Hay Fever Lisinopril Cough Codeine Nausea Codeine Sulfate Headache Cold sweats. Current Outpatient Medications Medication Sig ascorbic acid SR 1,000 mg oral tablet Take 500 mg by mouth once daily in the evening. atorvastatin 20 mg oral tablet Take 20 mg by mouth once daily in the evening. baclofen 20 mg oral tablet Take 40 mg by mouth once daily in the evening. Dakivkl-Eqedjgnfx-Mhtu oral tablet Take by mouth once daily. cyanocobalamin (VITAMIN B-12) 1,000 mcg oral tablet Take 1 tablet by mouth once daily. Ferrous Sulfate 324 mg (65 mg iron) oral tablet,delayed release (DR/EC) Take 324 mg by mouth once daily. gabapentin 300 mg oral capsule Take 600 mg by mouth three times daily. losartan 100 mg oral tablet Take 100 mg by mouth once daily. rOPINIRole 4 mg oral tablet Take 4 mg by mouth once daily in the evening. spironolactone 25 mg oral tablet Take 25 mg by mouth once daily. tamsulosin 0.4 mg oral capsule Take 0.4 mg by mouth once daily. temazepam 30 mg oral capsule Take 30 mg by mouth once daily at bedtime. tiZANidine 4 mg oral capsule Take 1 capsule by mouth once daily as needed. verapamil SR 12 hr 180 mg oral tablet extended release Take 180 mg by mouth once daily. warfarin 5 mg oral tablet Take 5 mg by mouth once daily. 2.5 mg on Sunday, , No current facility-administered medications for this visit. Past Medical History: Diagnosis Date Anemia Aortic stenosis Bleeding tendency (HCC) Chronic anticoagulation Essential hypertension High cholesterol MANSOOR (obstructive sleep apnea) Palpitations PVC (premature ventricular contraction) Renal failure Restless leg syndrome Past Surgical History Procedure Laterality Date Tka (total knee arthroplasty) Left 2018 Knee arthroscopy Bilateral multiple Jaw replacement 2002 Total knee replacement 2017 Appendectomy 1965 Cataract surgery of both eyes 1995, 1997 Mitral valve replacement Social History Tobacco Use Smoking status: Former Smoker Packs/day: 1.00 Years: 6.00 Pack years: 6.00 Types: Cigars Last attempt to quit: 03/03/2018 Years since quittin.6 Smokeless tobacco: Current User Types: Chew Substance Use Topics Alcohol use: No Family History Problem Relation Hypertension Mother Cancer Mother Hypertension Father Heart Disease Father Stroke Father Physical Exam: BP 139/73 (BP Location: Right upper arm, Patient Position: Sitting) | Pulse 76 | Temp 36. 6 C (97.9 F) (Oral) | Ht 1.778 m (5' 10") | Wt 94.9 kg (209 lb 3.5 oz) | SpO2 98% | BMI 30.02 kg/m | BSA 2.16 m Body mass index is 30.02 kg/m. General: NAD, speech fluent, mood and behavior within normal limits HEENT: NCAT, trachea midline Resp: non-labored COR: 3/6 WILMER. Neurological: CRANIAL NERVES II PERRL III, IV, Extraocular movements intact. V Facial sensation intact to light touch. VII Facies symmetric. VIII Hearing WNL. IX, X Normal phonation, palate elevates in midline. XI Good SCM and Trapezius muscle function bilaterally. XII Tongue protrudes in midline. Musculoskeletal: Gait: Antalgic to the RIGHT; forward flexion at the waist; hunched over; Elevates on heels and toes but poor balance to walk. Station: Romberg: Negative Tone: Normal tone in upper and lower extremities MOTOR SCORE LEFT RIGHT C5 (Shoulder Abduct) 5 5 C6 (Elbow Flex) 5 5 C7 (Elbox Ext) 5 5 C8 (Wrist Ext) 5 5 C8 (Crop Roller) 5 5 T1 (Pinky Abd) 5 5 Hand Intrinsics 5 5 L2 (Hip flexion) 4 L3 (Knee Ext) 4 5 L4 (Dorsiflexion) 4+ 5 L5 (EHL) 5 5 S1 (Plantar Flex) 5 5 TENDON REFLEXES LEFT RIGHT C5-6 (Biceps) 0 0 C6 (Brachioradialis) 0 0 C7-8 (Triceps) 0 0 L3-4 (Knee jerk) 0 0 S1-2 (Achilles) 0 0 PATHOLOGIC REFLEXES LEFT RIGHT Ramirez neg neg Clonus neg neg Sensory: Sensation decreased RIGHT lateral thigh to light touch. Labs No results found for: A1C Lab Results Component Value Date NA 138 10/24/2018 K 4.7 10/24/2018 CL 105 10/24/2018 BICARB 26 10/24/2018 BUN 36 10/24/2018 EGFRAFRICAN 49 10/24/2018 EGFRNONAFR 40 10/24/2018 CR 1.7 10/24/2018 GLU 93 10/24/2018 CA 9.6 10/24/2018 ANIONGAP 7 10/24/2018 Lab Results Component Value Date WBC 12.7 07/13/2002 HB 8.2 07/13/2002 HCT 23.7 07/13/2002 PLT 414 07/13/2002 MCV 83.5 07/13/2002 RDW 15.2 07/13/2002 Lab Results Component Value Date APTT 60.4 07/13/2002 Diagnostic Results: MRI 09/17/2018 shows multi-level DDD with L2-3 and L3-4 facet arthropathy with degenerative disc bulges at L2-3 and L3-4 and right L3-4 foraminal stenosis. 09/13/18 [facility]: Lumbar x-rays show spondylolisthesis at L2-3 and L3-4 on flexion extension views. 09/13/18 [facility]: Scoliosis x-rays show an SVR of ~6.5 cm. Assessment: Thoracolumbar kyphosis Lumbar Spondylosis Lumbar spondylolisthesis Lumbar degenerative disc disease Lumbar foraminal stenosis Lumbar radiculopathy Past Medical History: Diagnosis Date Anemia Aortic stenosis Bleeding tendency (HCC) Chronic anticoagulation Essential hypertension High cholesterol MANSOOR (obstructive sleep apnea) Palpitations PVC (premature ventricular contraction) Renal failure Restless leg syndrome Plan: Mr De La Paz is scheduled for an XLIF L2-4 and a posterior spinal fusion L2-4. The indications for fusion are significant deformity causing symptoms that would not respond to decompressi on alone. The risks included but were not limited to , stroke, heart attack, numbness, weakness, paralysis, failure of fusion, failure of hardware, subsidence, adjacent segment degeneratio n, cerebrospinal fluid leak, bleeding, infection, injury to surrounding tissues and organs, injury from positioning, injury to the nerves, difficulty with breathing, difficulty with sw allowing, difficulty with voice change, and need for additional surgery. Do not take any Aspirin, vitamin E or non-steroidal anti-inflammatory (NSAIDs i.e. Advil, A leve, Ibuprofen), herbal supplements, and Whiteford 3 Fish Oil 10 days prior to your surgery. With regard to warfarin, this will need to be discontinued 7 days with the start of a Loven ox bridge. Deanna Quinn at the [facility] Anticoagulation clinic will be handling the se details during the ariane-operative period. The goal INR is 1.4. She is aware per telephon e conversation on 10/25/2018. INR will be drawn the morning prior to surgery and the morning of surgery. Will repeat CBC to recheck WBC. Will confirm that MRI imaging is available on [facility]. Jaison Barber PA-C [facility] Neurosurgery [phone] signed by Jaison Barber PA-C at 10/27/2018 9:40 PM PDTVaishnavi Nguyen MA - 10/24/2018 2:45 PM PDTReview of Systems Constitutional: Positive for malaise/fatigue. HENT: Positive for hearing loss. Eyes: Negative. Respiratory: Negative. Cardiovascular: Negative. Gastrointestinal: Bowel incontinence Genitourinary: Positive for frequency. Urinary incontinence Musculoskeletal: Bone pain Skin: Negative. Neurological: Positive for tingling. Numbness, muscle twitching, muscle cramps, lack of coordination, problems walking, los s of balance Endo/Heme/Allergies: Bruises/bleeds easily. Psychiatric/Behavioral: Negative. documented in this e ncounter Plan of Treatment +--------+---------+ + + + | Date | Type | Specialty | Care Team | Description | +--------+---------+ + + + | 04/30/ | Office | Neurological Surgery | Yam, Levi, MD | | | 2020 | Visit | | [address] | | | | | | [address] | | | | | | [place] [address] | | | | | | [phone] | | | | | | | | +--------+---------+ + + + documented as of this encounter Procedures + +--------+ + + + | Procedure Name | Priori | Date/Time | Associated Diagnosis | Comments | | | ty | | | | + +--------+ + + + | OUTSIDE CARDIOLOGY | | 10/29/2018 | | Results for this | | | | 12:00 AM | | procedure are in the | | | | PDT | | results section. 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
--- OUTSIDE RECORDS SUMMARY | ~2019-02-03 | XMS | Encounter Summary ---
Demographics + + + | Address | [address] | | | [place] [address] | + + + | Home Phone | | + + + | Preferred Language | Unknown | + + + | Marital Status | | + + + | Presybeterian Affiliation | [id number] | + + + | Race | Unknown | + + + | Ethnic Group | Unknown | + + + Author + + + | Author | [facility] | | | and [place] | + + + | Organization | [facility] | | | and [place] | + + + | Address | Unknown | + + + | Phone | Unavailable | + + + Support + + + + + | Name | Relationship | Address | Phone | + + + + + | Ai De La Paz | ECON | [address] | | | | | [address] | | | | | [address] | | + + + + + Care Team Providers + +------+ + | Care Log Hooker Name | Role | Phone | + +------+ + PCP | Unavailable | + +------+ + Encounter Details +--------+ + + + + | Date | Type | Department | Care Team | Description | +--------+ + + + + | 05/22/ | Hospital | [facility] | Khai Ackerman | | | 2002 | Encounter | [facility] | DO Bari | | | | | [address] | | | | | | [place] | | | | | | [address] | | | | | | [phone] | | | +--------+ + + + [...] 2020 | Visit | | [address] [facility] | | | | | | [address] [place], [place] | | | | | | [address] | | | | | | | | +--------+---------+ + + + documented as of this encounter Visit Diagnoses Not on filedocumented in this encounter"
--- OUTSIDE RECORDS SUMMARY | ~2019-02-03 | XMS | Encounter Summary ---
Demographics + + + | Address | [address] | | | [place] [address] | + + + | Home Phone | | + + + | Preferred Language | Unknown | + + + | Marital Status | | + + + | Religion Affiliation | CAT | + + + [...] Phone | + + +---------+ + | iA De La Paz | ECON | Unknown | | + + +---------+ + | Tammie Leblanc | ECON | Unknown | | + + +---------+ + Care Team Providers + +------+ + | Care Ball Sorter Name | Role | Phone | + +------+ + | Bartolome Frederick DO | PCP | | + +------+ + Encounter Details +--------+ + + + + | Date | Type | Department | Care Team | Description | +--------+ + + + + | 10/14/ | Telephone | [facility] | Michael Durbin MD | | | 2019 | | Neurosurgery at [facility] | [address] | | | | | [address] | [address] | | | | | [address] | [place] [address] | | | | | [place], [place] | [phone] | | | | | [address] | | | | | | [phone] | | | +--------+ + + + [...] | 2019 | Visit | | [address] [facility] [address] | | | | | | [facility] [address] | | | | | | [place] [address] | | | | | | [phone] | | | | | | | | +--------+---------+ + + + documented as of this encounter Visit Diagnoses Not on filedocumented in this encounter"
--- OUTSIDE RECORDS SUMMARY | ~2019-02-03 | XMS | Encounter Summary ---
Demographics + + + | Address | [address] | | | [place] [address] | + + + | Home Phone | | + + + | Preferred Language | Unknown | + + + | Marital Status | | + + + | Nondenominational Affiliation | CAT | + + + [...] Team Providers + +------+ + | Care Layout Inspector Name | Role | Phone | + +------+ + | Bartolome Frederick DO | PCP | | + +------+ + Reason for Visit +---------+ + | Reason | Comments | +---------+ + | Post Op | Lumbar | +---------+ + Encounter Details +--------+---------+ + + + | Date | Type | Department | Care Team | Description | +--------+---------+ + + + | 12/05/ | Office | [place] | Jaison Barber, | S/P lumbar fusion | | 2019 | Visit | [facility] | PA-C [address] | (Primary Dx); Lumbar | | | | [address] | [place], [place] | degenerative disc | | | | [address] | [id number] | disease; Aortic | | | | [place], [place] | | valve stenosis, | | | | [address] | | etiology of cardiac | | | | [phone] | | valve disease | | | | | | unspecified; History | | | | | | of mitral valve | | | | | | replacement with | | | | | | mechanical valve; | | | | | | Chronic | | | | | | anticoagulation | +--------+---------+ + + + Social History [...] + + + | Blood Pressure | 146/70 | 12/05/2018 10:35 AM | | | | | PDT | | + + + + + | Pulse | 82 | 12/05/2018 10:35 AM | | | | | PDT | | + + + + + | Temperature | 37 C (98.6 F) | 12/05/2018 10:35 AM | | | | | PDT | | + + + + + | Respiratory Rate | - | - | | + + + + + | Oxygen Saturation | 96% | 12/05/2018 10:35 AM | | | | | PDT | | + + + + + | Inhaled Oxygen | - | - | | | Concentration | | | | + + + + + | Weight | 96 kg (211 lb 10.3 | 12/05/2018 10:35 AM | | | | oz) | PDT | | + + + + + | Height | 177.8 cm (5' 10") | 12/05/2018 10:35 AM | | | | | PDT | | + + + + + | Body Mass Index | 30.37 | 12/05/2018 10:35 AM | | | | | PDT | | + + + + + documented in this encounter Functional Status + + + + | Functional Status | Response | Date of Assessment | + + + + | Because of a physical, mental, or emotional | No | 11/08/2018 | | condition, do you have serious difficulty | | | | doing errands alone such as visiting the | | | | doctor? | | | + + + + + + + + | Cognitive Status | Response | Date of Assessment | + + + + | Because of a physical, mental, or emotional | No | 11/08/2018 | | condition, do you have serious difficulty | | | | concentrating, remembering, or making | | | | decisions? (5 years old or older) | | | + + + + documented as of this encounter Patient Instructions Patient Instructions Jeimy Mera PA-C - 12/05/2018 11:00 AM PDT-Wear LSO brace when o ut of bed for 2 more weeks then wean out of it. -Increase gait as tolerated. No bending or twisting. -No riding lawnmower or picking up leaves. -no lifting over 10lbs -OK to shower. -Incision does not need to be covered, unless rubbing on pants. -Follow up XR ordered to get prior to next appointment. -Return to clinic in 2 months, or sooner should concerns arise. documented in this encounter Progress Notes Jeimy Mera PA-C - 12/05/2018 11:00 AM PDT Neurosurgery - Follow Up Chief Complaint: Post Op (Lumbar) Referring Provider: Bartolome Frederick DO History of Present Illness: Mr. De La Paz, a 68 y.o. male, was seen today for a neurosurgical follow up s/p lumbar fusion L2-4. He is doing great today. He no longer has pain in his low back or radiating pain down his p osterior thighs. He does have some bilateral quadriceps muscle soreness, because he has been walking more. His balance is much improved and he is only using his walker for long walks. Denies bowel or bladder incontinence. He is very pleased with his results so far and is glad to have gotten the surgery. [facility] 1/2 blood cultures Positive for gram-positive cocci in clusters, negative for Staphylococcu s aureus per PCR after patient was discharged from the hospital. Dr Durbin treated with clindam ycin. He has had no signs or symptoms of infection since. Review of Systems Constitutional: Negative. HENT: Positive for hearing loss. Eyes: Negative. Respiratory: Negative. Cardiovascular: Negative. Gastrointestinal: Negative. Genitourinary: Negative. Musculoskeletal: Negative. Skin: Negative. Neurological: Muscle shrinkage Endo/Heme/Allergies: Bruises/bleeds easily. Psychiatric/Behavioral: Negative. Allergies Allergen Reactions Penicillins Anaphylaxis Stopped breathing Bee Pollen Pruritus and Unknown Hay Fever Lisinopril Cough Codeine Nausea Codeine Sulfate Headache Cold sweats. Current Outpatient Medications Medication Sig acetaminophen 500 mg oral tablet Take 2 tablets by mouth every six hours as needed for mild pain. ascorbic acid SR 1,000 mg oral tablet Take 500 mg by mouth once daily in the evening. atorvastatin 20 mg oral tablet Take 20 mg by mouth once daily in the evening. baclofen 20 mg oral tablet Take 0.5 tablets by mouth three times daily as needed (muscl e spasms). Gwgbgfq-Wjadbaoby-Hpdo oral tablet Take by mouth once daily. clindamycin 300 mg oral capsule Take 1 capsule by mouth every eight hours. cyanocobalamin (VITAMIN B-12) 1,000 mcg oral tablet Take 1 tablet by mouth once daily. enoxaparin 80 mg/0.8 mL subcutaneous syringe Inject 0.8 mL under the skin (SUBC) every twelve hours. Until INR is above 2.5 then stop. Risks of lovenox discussed with patient Ferrous Sulfate 324 mg (65 mg iron) oral tablet,delayed release (DR/EC) Take 324 mg by mouth once daily. gabapentin 300 mg oral capsule Take 600 mg by mouth three times daily. oxyCODONE (immediate release) 5 mg oral tablet Take 1-2 tablets by mouth every six hour s as needed for severe pain (for pain.). rOPINIRole 4 mg oral tablet Take 4 mg by mouth once daily in the evening. senna-docusate 8.6-50 mg oral tablet Take 2 tablets by mouth two times daily. tamsulosin 0.4 mg oral capsule Take 0.4 mg by mouth once daily. temazepam 30 mg oral capsule Take 30 mg by mouth once daily at bedtime. verapamil SR 180 mg oral tablet extended release Take 1 tablet by mouth once daily. Sta rt on 11/12/18 if systolic blood pressure has been above 130 mm of hg warfarin 5 mg oral tablet Take 0.5 tablets by mouth once daily. 2.5 mg today and tomorr ow and then check INR on 11/11/18 and then dose adjust per your tree planter No current facility-administered medications for this visit. Past Medical History: Diagnosis Date Anemia Aortic stenosis Bleeding tendency (HCC) Chronic anticoagulation Essential hypertension High cholesterol MANSOOR (obstructive sleep apnea) Palpitations PVC (premature ventricular contraction) Renal failure Restless leg syndrome Past Surgical History Procedure Laterality Date Tka (total knee arthroplasty) Left 2018 Knee arthroscopy Bilateral multiple Jaw replacement 2003 Total knee replacement 2017 Appendectomy 1965 Cataract surgery of both eyes 1995, 1997 Mitral valve replacement Social History Tobacco Use Smoking status: Former Smoker Packs/day: 1.00 Years: 6.00 Pack years: 6.00 Types: Cigars Last attempt to quit: 03/03/2018 Years since quittin.7 Smokeless tobacco: Current User Types: Chew Substance Use Topics Alcohol use: No Family History Problem Relation Hypertension Mother Cancer Mother Hypertension Father Heart Disease Father Stroke Father Physical Exam: BP 146/70 (BP Location: Right upper arm, Patient Position: Sitting) | Pulse 82 | Temp 37 C (98.6 F) | Ht 1.778 m (5' 10") | Wt 96 kg (211 lb 10.3 oz) | SpO2 96% | BMI 30.37 kg/m | BSA 2.18 m Body mass index is 30.37 kg/m. General: NAD, speech fluent, mood and behavior within normal limits Resp: non-labored Neurological: Gait: Normal. Ambulates on heels and toes, able to tandem walk Tone: Normal tone in upper and lower extremities MOTOR SCORE LEFT RIGHT C5 (Shoulder Abduct) 5 5 C6 (Elbow Flex) 5 5 C7 (Elbox Ext) 5 5 C8 (Wrist Ext) 5 5 C8 (Sterilizer Operator) 5 5 T1 (Pinky Abd) 5 5 Hand Intrinsics 5 5 L2 (Hip Flex) 4+ sore 4+ sore L3 (Knee Ext) 5 5 L4 (Dorsiflexion) 5 5 L5 (EHL) 5 5 S1 (Plantar Flex) 5 5 TENDON REFLEXES LEFT RIGHT C5-6 (Biceps) 0 0 C6 (Brachioradialis) 0 0 C7-8 (Triceps) 0 0 L3-4 (Knee jerk) 0 0 S1-2 (Achilles) 0 0 Sensory: Sensation grossly intact to light touch throughout Surgical Incisions: removed leftover bandages and steri-strips. Some superficial skin irrit ation from bandages. Incisions well healed.No drainage, rubor, calor, or dolor. Diagnostic Results: 2 view lumbar spine XR: 12/05/18 Review of PO 2 view LS AP/lateral demonstrates satisfactory positioning of interbody spacer s and spinal instrumentation of L2-L4. Assessment: 1. S/P lumbar fusion 2. Lumbar degenerative disc disease 3. Aortic valve stenosis, etiology of cardiac valve disease unspecified 4. History of mitral valve replacement with mechanical valve 5. Chronic anticoagulation Plan: -Wear LSO brace when out of bed for 2 more weeks then wean out of it. -Increase gait as tolerated. No bending or twisting. -No riding lawnmower or picking up leaves. -no lifting over 10lbs -OK to shower. -Incision does not need to be covered, unless rubbing on pants. -Follow up XR ordered to get prior to next appointment. -Return to clinic in 2 months, or sooner should concerns arise. Jeimy Mera PA-C [facility] [address] [place] [id number] Alida Martel MA - 12/05/2018 11:00 AM PDTReview of Systems Constitutional: Negative. HENT: Positive for hearing loss. Eyes: Negative. Respiratory: Negative. Cardiovascular: Negative. Gastrointestinal: Negative. Genitourinary: Negative. Musculoskeletal: Negative. Skin: Negative. Neurological: Muscle shrinkage Endo/Heme/Allergies: Bruises/bleeds easily. Psychiatric/Behavioral: Negative. documented in this enco unter Plan of Treatment +--------+---------+ + + + | Date | Type | Specialty | Care Team | Description | +--------+---------+ + + + | 04/30/ | Office | Neurological Surgery | Michael Durbin MD | | | 2019 | Visit | | [address] | | | | | | [address] | | | | | | [place] [address] | | | | | | [phone] | | | | | | | | +--------+---------+ + + + + +---------+--------+ + + | Name | Type | Priori | Associated Diagnoses | Order Schedule | | | | ty | | | + +---------+--------+ + + | X-RAY SPINE | Imaging | Routin | S/P lumbar fusion | Expected: | | LUMBOSACRAL 2 VIEWS | | e | | 12/05/2018, Expires: | | | | | | 01/05/2020 | + +---------+--------+ + + documented as of this encounter Visit Diagnoses + + | Diagnosis | + + | S/P lumbar fusion - Primary Arthrodesis status | + + | Lumbar degenerative disc disease Degeneration of lumbar or lumbosacral intervertebral | | disc | + + | Aortic valve stenosis, etiology of cardiac valve disease unspecified | + + | History of mitral valve replacement with mechanical valve Heart valve replaced by | | other means | + + | Chronic anticoagulation Encounter for long-term (current) use of anticoagulants | + + documented in this encounter
--- OUTSIDE RECORDS SUMMARY | ~2019-02-03 | XMS | Clinical Summary ---
Demographics + + + | Address | [address] | | | [place] [address] | + + + | Home Phone | | + + + | Preferred Language | Unknown | + + + | Marital Status | | + + + | Jew Affiliation | [phone] | + + + | Race | Unknown | + + + | Ethnic Group | Unknown | + + + Author + + + | Author | [facility] | | | and [place] | + + + | Organization | [facility] | | | and [place] | + + + | Address | Unknown | + + + | Phone | Unavailable | + + + Support + + + + + | Name | Relationship | Address | Phone | + + + + + | Ai De La Paz | ECON | [address] | | | | | [place] | | | | | [address] | | + + + + + Care Team Providers + +------+ + | Care Lining Folder Name | Role | Phone | + +------+ + | Bartolome Frederick DO | PCP | | + +------+ + Allergies + + + + + + | Active Allergy | Reactions | Severity | Noted | Comments | | | | | Date | | + + + + + + | Codeine Sulfate | Headache | Low | 03/30/19 | Cold sweats. | | | | | 12 | | + + + + + + | Lisinopril | Cough | | 09/01/19 | | | | | | 18 | | + + + + + + | Penicillins | Anaphylaxis | High | 03/30/19 | | | | | | 12 | | + + + + + + | Pollen Extract | Itching, Sensitivity | | 09/01/19 | Hay Fever | | | | | 18 | | + + + + + + Medications + + + +---------+------+------+-------+ | Medication | Sig | Dispensed | Refills | Star | End | Statu | | | | | | t | Date | s | | | | | | Date | | | + + + +---------+------+------+-------+ | atorvaSTATin | Take 40 mg by mouth | | 0 | 02/1 | | Activ | | (LIPITOR) 40 mg | nightly. | | | 2/20 | | e | | tablet | | | | 18 | | | + + + +---------+------+------+-------+ | baclofen | Take 20 mg by mouth | | 0 | | | Activ | | (LIORESAL) 20 mg | 3 times daily. | | | | | e | | tablet | | | | | | | + + + +---------+------+------+-------+ | rOPINIRole | Take 4 mg by mouth | | 0 | | | Activ | | (REQUIP) 4 mg tablet | nightly. | | | | | e | + + + +---------+------+------+-------+ | tamsulosin | Take 0.4 mg by mouth | | 0 | | | Activ | | (FLOMAX) 0.4 mg CAPS | nightly. | | | | | e | + + + +---------+------+------+-------+ | temazepam | Take 30 mg by mouth | | 0 | | | Activ | | (RESTORIL) 30 MG | nightly. | | | | | e | | capsule | | | | | | | + + + +---------+------+------+-------+ | verapamil (CALAN | Take 180 mg by mouth | | 0 | | | Activ | | SR) 180 mg SR tablet | nightly. | | | | | e | + + + +---------+------+------+-------+ | warfarin | Take 5 mg by mouth | | 0 | | | Activ | | (COUMADIN) 5 mg | Daily. 2.5mg Sunday | | | | | e | | tablet | and Sunday. | | | | | | | | Remainder of days is | | | | | | | | 5mg | | | | | | + + + +---------+------+------+-------+ | | Take 1,000 mg by | | 0 | | | Activ | | CALCIUM/MAGNESIUM/ZI | mouth. | | | | | e | | NC FORMULA PO | | | | | | | + + + +---------+------+------+-------+ | Ascorbic Acid | Take 500 mg by mouth | | 0 | | | Activ | | (VITAMIN C) 500 MG | Daily. | | | | | e | | CAPS | | | | | | | + + + +---------+------+------+-------+ | ferrous sulfate | Take by mouth | | 0 | | | Activ | | 324 (65 Fe) MG EC | nightly. | | | | | e | | tablet | | | | | | | + + + +---------+------+------+-------+ | spironolactone | Take 25 mg by mouth | | 0 | 08/0 | | Activ | | (ALDACTONE) 25 mg | Daily. | | | 20 | | e | | tablet | | | | 17 | | | + + + +---------+------+------+-------+ | gabapentin | Take 600 mg by mouth | | 0 | | | Activ | | (NEURONTIN) 300 mg | 3 times daily. | | | | | e | | capsule | Sometimes takes 2 | | | | | | | | tabs QID prn pain | | | | | | + + + +---------+------+------+-------+ | tiZANidine | Take 1 capsule by | 30 | 0 | 06/1 | | Activ | | (ZANAFLEX) 4 MG | mouth nightly. | capsule | | 08/24 | | e | | capsuleIndications: | | | | 19 | | | | Spondylosis with | | | | | | | | myelopathy, lumbar | | | | | | | | region | | | | | | | + + + +---------+------+------+-------+ Active Problems + + + | Problem | Noted Date | + + + | Piriformis syndrome of both sides | 06/04/2018 | + + + + + | Last Assessment & Plan: -Referral placed to Dr[facility] Ortez at | | [facility] for [facility]. Discussed the significance of | | changes in bowel or bladder. -Continue current treatment of | | Gabapentin and start physical therapy. -Encouraged him to use | | hiking poles with ambulation. | + + + + + | Sagittal plane imbalance | 06/04/2018 | + + + | Acquired flat back syndrome | 06/04/2018 | + + + | Deconditioned low back | 06/04/2018 | + + + | Spondylosis without myelopathy or radiculopathy, lumbar region | 06/04/2018 | + + + + + | Last Assessment & Plan: -Referral placed to Dr[facility] Otrez at | | [facility] for [facility]. Discussed the significance of | | changes in bowel or bladder. -Continue current treatment of | | Gabapentin and start physical therapy. -Encouraged him to use | | hiking poles with ambulation. | + + + + + | Aortic stenosis, moderate | 04/25/2018 | + + + | GI bleed not requiring more than 4 units of blood in 24 hours, | 11/20/2017 | | ICU, or surgery | | + + + | Hypotension due to medication | 11/20/2017 | + + + | Anemia | 11/20/2017 | + + + | Anticoagulant long-term use | 11/20/2017 | + + + | Chronic bilateral low back pain with bilateral sciatica | 09/04/2017 | + + + | Spinal stenosis of lumbar region with radiculopathy | 09/04/2017 | + + + | Tobacco abuse | 08/14/2016 | + + + | CKD (chronic kidney disease), stage III | 06/13/2016 | + + + | OBESITY | 03/30/2011 | + + + | RESTLESS LEGS SYNDROME | 03/30/2011 | + + + | INSOMNIA | 03/30/2011 | + + + | MIGRAINE HEADACHE | 03/30/2011 | + + + | SLEEP APNEA | 03/30/2011 | + + + | HYPERLIPIDEMIA | 03/30/2011 | + + + | HYPERTENSION | 03/30/2011 | + + + | ENDOCARDITIS,MITRAL VALVE W/ENLARGED ANTERIOR LEAFLET VEG | 03/30/2011 | + + + + + | Last Assessment & Plan: -Encouraged him to follow up with | | Cardiology regarding his Mitral valve. | + + + + + | DYSPNEA | 03/30/2011 | + + + | PALPITATIONS | 03/30/2011 | + + + | History of mitral valve replacement with mechanical valve | 07/06/2002 | + + + + + | Overview: Overview: | | [facility] for IE | + + Resolved Problems + + + + | Problem | Noted | Resolved | | | Date | Date | + + + + | High risk medication use | 11/21/19 | | | | 18 | 8 | + + + + | High risk medications (not anticoagulants) long-term use | 11/21/19 | | | | 18 | 8 | + + + + Encounters +--------+ + + + + | Date | Type | Specialty | Care Team | Description | +--------+ + + + + | 11/11/ | Telephone | Primary Care | Bartolome Frederick | Other (regarding | | 2019 | | | E, DO | back surgery); Phone | | | | | | Attempt ([facility] to | | | | | | May.) | +--------+ + + + + from Last 3 Months Immunizations + + + + | Name | Administration Dates | Next Due | + + + + | TDAP, (ADOL/ADULT) | 07/22/2018 | | + + + + Family History + + +------+ + | Medical History | Relation | Name | Comments | + + +------+ + | Asthma | Brother | | | + + +------+ + | Diabetes | Brother | | | + + +------+ + | Heart disease | Brother | | leaky heart valve | + + +------+ + | Prostate cancer | Brother | | | + + +------+ + | No known problems | Brother | | | + + +------+ + | No known problems | Child | | | + + +------+ + | No known problems | Child | | | + + +------+ + | Diabetes | Father | | | + + +------+ + | Heart disease | Father | | | + + +------+ + | Hypertension | Father | | | + + +------+ + | Stroke | Father | | | + + +------+ + | Cancer | Mother | | | + + +------+ + | Heart failure | Mother | | CHF | + + +------+ + | Hypertension | Mother | | | + + +------+ + | Other (see comment) | Mother | | Joint replacement | + + +------+ + | No known problems | Sister | | | + + +------+ + + +------+ + + | Relation | Name | Status | Comments | + +------+ + + | Brother | | Alive | | + +------+ + + | Brother | | Alive | | + +------+ + + | Brother | | Alive | | + +------+ + + | Child | | | | + +------+ + + | Child | | | | + +------+ + + | Father | | | Heart attack/stroke | | | | (Age | | | | | 75) | | + +------+ + + | Mother | | | | | | | (Age | | | | | 93) | | + +------+ + + | Sister | | | | + +------+ + + Social History + +--------+ +--------+ + | Tobacco Use | Types | Packs/Day | Years | Date | | | | | Used | | + +--------+ +--------+ + | Former Smoker | Cigars | 0.06 | 12 | 200603/03/2018 | + +--------+ +--------+ + + +-------+---+---+ | Smokeless Tobacco: | Snuff | | | | Current User | | | | + +-------+---+---+ + + | Tobacco Cessation: Ready to Quit: No; Counseling Given: Yes | + + + + + + + | Alcohol Use | Drinks/Week | oz/Week | Comments | + + + + + | Yes | 0 Glasses of wine | 0.0 - 1.0 | Four beers once per | | | 0 Cans of beer 0 | | year (during | | | Shots of liquor 0-1 | | [place]) | | | Standard drinks or | [...] recent travel history available. | + + Last Filed Vital Signs + + + + + | Vital Sign | Reading | Time Taken | Comments | + + + + + | Blood Pressure | 122/62 | 10/11/2018 9:43 AM | | | | | PDT | | + + + + + | Pulse | 84 | 10/11/2018 9:43 AM | | | | | PDT | | + + + + + | Temperature | 36.7 C (98 F) | 04/25/2018 10:02 AM | | | | | PDT | | + + + + + | Respiratory Rate | 14 | 07/22/2018 8:56 AM | | | | | PDT | | + + + + + | Oxygen Saturation | 96% | 10/10/2018 11:19 AM | | | | | PDT | | + + + + + | Inhaled Oxygen | - | - | | | Concentration | | | | + + + + + | Weight | 93.6 kg (206 lb 4.8 | 10/11/2018 9:43 AM | | | | oz) | PDT | | + + + + + | Height | 177.8 cm (5' 10") | 10/11/2018 9:43 AM | | | | | PDT | | + + + + + | Body Mass Index | 29.6 | 10/11/2018 9:43 AM | | | | | PDT | | + + + + + Plan of Treatment +--------+---------+ + + + | Date | Type | Specialty | Care Team | Description | +--------+---------+ + + + | 02/19/ | Office | Nephrology | Ismael Young MD | | | 2019 | Visit | | [address] [facility] | | | | | | [address] [facility] | | | | | | [address] | | | | | | | | +--------+---------+ + + + + + + + + | Health Maintenance | Due Date | Last Done | Comments | + + + + + | Hepatitis C | | | | | Screening | 2 | | | + + + + + | Vaccine: Zoster (1 | | | | | of 2) | 2 | | | + + + + + | Adult Annual | | | | | Wellness Visit | 5 | | | + + + + + | AAA Screening | | | | | | 7 | | | + + + + + | Vaccine: | | | | | Pneumococcal 65+ (1 | 7 | | | | of 2 - PCV13) | | | | + + + + + | Vaccine: Influenza | | | | | (#1) | 9 | | | + + + + + | Primary Care | | 10/11/2018, 10/10/2018, | | | Outreach (Intense | 9 | 07/22/2018, Additional history | | | Risk) | | exists | | + + + + + | Colorectal Cancer | | 05/27/2014, 02/05/2014 | | | Screening | 0 | | | | (Colonoscopy) | | | | + + + + + | Vaccine: | | 07/22/2018 | | | Dtap/Tdap/Td (2 - | 9 | | | | Td) | | | | + + + + + Results Not on filefrom Last 3 Months Insurance + +--------+ +--------+ +---------+--------+ | Payer | Benefi | Subscriber | Effect | Phone | Address | Type | | | t Plan | ID | rusty | | | | | | / | | Dates | | | | | | Group | | | | | | + +--------+ +--------+ +---------+--------+ | [employer] | [employer] | [id number] | 02/05/19 | | | Indemn | | | ZAYAS | | 17-Pre | | | ity | | | LIFE | | sent | | | | | | MDCR | | | | | | | | SUPPL | | | | | | + +--------+ +--------+ +---------+--------+ | MEDICARE | MEDICA | [id number] | 02/05/19 | [phone] | | Medica | | | RE | | 17-Pre | 5 | | re | | | PART A | | sent | | | | | | AND B | | | | | | + +--------+ +--------+ +---------+--------+ | [employer] | [employer] | [id number] | | | | Indemn | | | ZAYAS | | 014-Pr | | | ity | | | LIFE | | esent | | | | | | MDCR | | | | | | | | SUPPL | | | | | | + +--------+ +--------+ +---------+--------+ | MEDICARE | MEDICA | [id number] | 02/05/19 | [phone] | | Medica | | | RE | | 17-Pre | 5 | | re | | | PART A | | sent | | | | | | AND B | | | | | | + +--------+ +--------+ +---------+--------+ | MEDICARE | MEDICA | [id number] | 02/05/19 | [phone] | | Medica | | | RE | | 17-Pre | 5 | | re | | | PART A | | sent | | | | | | AND B | | | | | | + +--------+ +--------+ +---------+--------+ | [employer] | [employer] | [id number] | 11/16/ | | | Indemn | | | ZAYAS | | 2018-P | | | ity | | | LIFE | | resent | | | | | | MDCR | | | | | | | | SUPPL | | | | | | + +--------+ +--------+ +---------+--------+ + +--------+ +--------+ + + | Guarantor Name | Accoun | Relation to | Date | Phone | Billing Address | | | t Type | Patient | of | | | | | | | | | | + +--------+ +--------+ + + | Lupillo De La Paz | Person | Self [birth year] | [address] | | | al/Fam | | 1951 | [phone] | [place], [place] | | | michael | | | 6 (Home) | [address] | + +--------+ +--------+ + + | Luplilo De La Paz | Person | Self | [birth year] | [address] | | | al/Fam | | 1951 | [phone] | [place], [place] | | | [place] | | | 6 (Home) | [address] | | | | | | [phone] | | | | | | | 0 (Work) | | + +--------+ +--------+ + + | Lupillo De La Paz | Person | Self | [birth year] | [address] | | | al/Fam | | [birth year] | [phone] | [place] | | | [place] | | | 6 (Home) | [address] | | | | | | [phone] | | | | | | | 0 (Work) | | + +--------+ +--------+ + + Advance Directives + + + + + | Type | Date Recorded | Patient | Explanation | | | | Dean Of Admissions | | + + + + + | Power of | | | | | Nocturnist Physician | | | | + + + + + | Advance | | | | | Directive | | | | + + + + +
--- OUTSIDE RECORDS SUMMARY | ~2019-02-03 | XMS | Encounter Summary ---
Demographics + + + | Address | [address] | | | [place] [address] | + + + | Home Phone | | + + + | Preferred Language | Unknown | + + + | Marital Status | | + + + | Faith Affiliation | 1041 | + + + [...] [place] | | | | | [address] | | + + + + + Care Team Providers + +------+ + | Care Western Tack Assembly Line Worker Name | Role | Phone | + +------+ + | Bartolome Frederick DO | PCP | | + +------+ + Reason for Visit +--------+ + | Reason | Comments | +--------+ + | Other | Appointment reminder call | +--------+ + Encounter Details +--------+ + + + + | Date | Type | Department | Care Team | Description | +--------+ + + + + | 10/02/ | Telephone | [facility] | Ismael Young MD | Other (Appointment | | 2019 | | NEPHROLOGY [place] | [address] [place] | reminder call) | | | | [address] [place] | [address] [place] | | | | | [address] [place] | [address] | | | | | [address] | | | | | | [phone] | | | +--------+ + + + [...] | Shots of liquor 0-1 | | [place]) | | | Standard drinks or | [...] 2020 | Visit | | [address] [facility] | | | | | | [address] [place] | | | | | | [address] | | | | | | | | +--------+---------+ + + + documented as of this encounter Visit Diagnoses Not on filedocumented in this encounter"
--- OUTSIDE RECORDS SUMMARY | ~2019-02-03 | XMS | Clinical Summary ---
Demographics + + + | Address | [address] | | | [place] [address] | + + + | Home Phone | | + + + | Preferred Language | Unknown | + + + | Marital Status | | + + + | Moravian Affiliation | Unknown | + + + | Race | Unknown | + + + | Ethnic Group | Unknown | + + + Author + + + | Author | [facility] (Historical as of | | | 09-21-18) | + + + | Organization | [facility] (Historical as of | | | 09-21-18) | + + + | Address | Unknown | + + + | Phone | Unavailable | + + + Support + + + + + | Name | Relationship | Address | Phone | + + + + + | Ai Castaneda | ECON | [address] | | | | | [address] [facility] [place] | | | | | [address] | | + + + + + Care Team Providers + +------+ + | Care Professional Driver Name | Role | Phone | + [...] | | | | Activ | | Urdwjts-Oxzjraqmt-Xh | mouth 2 (two) times | | | | | e | | nc (BNP-JMO-ZNVH PO) | daily. | | | | [...] | | | | | | | ([facility]), Proteinuria | | | | [...] +------+-------+ + | MEDICARE | MEDICA | [id number] | | | [address] | | | RE | | | | [place] [address] | | | IP-OP | | | | | + +--------+ +------+-------+ + | COMMERCIAL OTHER | COMMER | [id number] | | | | | | CIAL [...] | | al/Fam | | 1950 | [phone] [place] | | | michael | | | [phone] | [address] | + +--------+ +--------+ + +
--- OUTSIDE RECORDS SUMMARY | ~2019-02-03 | XMS | Encounter Summary ---
Demographics + + + | Address | [address] | | | [place] [address] | + + + | Home Phone | | + + + | Preferred Language | Unknown | + + + | Marital Status | | + + + | Episcopal Affiliation | 1041 | + + + | Race | Unknown | + + + | Ethnic Group | Unknown | + + + Author + + + | Author | [facility] | | | and [place] | + + + | Organization | [facility] | | | and [...] [place] | | | | | [address] | | + + + + + Care Team Providers + +------+ + | Care Cinder Crusher Operator Name | Role | Phone | + +------+ + | Bartolome Frederick DO | PCP | | + +------+ + Encounter Details +--------+ + + + + | Date | Type | Department | Care Team | Description | +--------+ + + + + | 03/07/ | Orders Only | [facility] | SergAly espino, | | | 2018 | | NEPRHOLOGY [place] | SCALE ATTENDANT [address] | | | | | [address] | [place] | | | | | [address] [place], [place] | [place] | | | | | [address] | [address] | | | | | [phone] | [phone] | | | | | | | | +--------+ + + + + Social History + +--------+ +--------+------+ | Tobacco Use | Types | Packs/Day | Years | Date | | | | | Used | | + +--------+ +--------+------+ | Current Every Day | Cigars | | | | | Smoker | | | | | + +--------+ +--------+------+ + +-------+---+--------+ | Smokeless Tobacco: | Snuff | | Quit: | | Former User | | | 2003 | + +-------+---+--------+ + + | Comments: 2 "cigarillos"/day | + + + + +---------+ + | Alcohol Use | Drinks/Week | oz/Week | Comments | + + +---------+ + | Yes | | | Occassional | + + +---------+ + + + [...] 2020 | Visit | | [address] [facility] | | | | | | [address] [place] | | | | | | [address] | | | | | | | | +--------+---------+ + + + documented as of this encounter Procedures + +--------+ + + + | Procedure Name | Priori | Date/Time | Associated Diagnosis | Comments | | | ty | | | | + +--------+ + + + | EXTERNAL LAB: CBC | Routin | 03/07/2018 | | Results for this | | | e | 12:00 AM | | procedure are in the | | | | PST | | results section. | + +--------+ + + + | URINALYSIS WITH | Routin | 03/07/2018 | | Results for this | | MICROSCOPIC IF | e | 12:00 AM | | procedure are in the | | INDICATED | | PST | | results section. | + +--------+ + + + | PROTEIN/CREATININE | Routin | 03/07/2018 | | Results for this | | RATIO, URINE | e | 12:00 AM | | procedure are in the | | | | PST | | results section. | + +--------+ + + + | PARATHYROID HORMONE, | Routin | 03/07/2018 | | Results for this | | INTACT | e | 12:00 AM | | procedure are in the | | | | PST | | results section. | + +--------+ + + + | MAGNESIUM | Routin | 03/07/2018 | | Results for this | | | e | 12:00 AM | | procedure are in the | | | | PST | | results section. | + +--------+ + + + | RENAL FUNCTION PANEL | Routin | 03/07/2018 | | Results for this | | | e | 12:00 AM | | procedure are in the | | | | PST | | results section. | + +--------+ + + + documented in this encounter Results Protein/Creatinine Ratio, Urine (03/07/2018 12:00 AM PST) + + + + + + | Component | Value | Ref Range | Performed | Pathologist | | | | | At | Signature | + + + + + + | Protein/Cre | 224.5 (A) | 0 - 150 | EXTERNAL | | | at Ratio | | | LAB | | + + + + + + + + | Specimen | + + | Urine specimen | | (specimen) | + + + + + | Narrative | Performed At | + + + | PROTEIN, URINE - 33- 0.0 - 50.0 CREATININE, URINE - 147 | EXTERNAL LAB | + + + + +---------+ + + | Performing | Address | City/State/Zipcode | Phone Number | | Organization | | | | + +---------+ + + | EXTERNAL LAB | | | | + +---------+ + + Urinalysis with Microscopic if Indicated (03/07/2018 12:00 AM PST) + + + + + + | Component | Value | Ref Range | Performed | Pathologist | | | | | At | Signature | + + + + + + | Color | Yellow | | EXTERNAL | | | | | | LAB | | + + + + + + | Clarity | Clear | | EXTERNAL | | | | | | LAB | | + + + + + + | Spec Grav, | 1.016 | 1.005 - 1.030 | EXTERNAL | | | Fluid | | | LAB | | + + + + + + | Leukocyte | Negative | | EXTERNAL | | | Esterase, | | | LAB | | | Urine | | | | | + + + + + + | Nitrite, | Negative | | EXTERNAL | | | Urine | | | LAB | | + + + + + + | Urobilinoge | Normal | | EXTERNAL | | | n, Urine | | | LAB | | + + + + + + | Total | neg | | EXTERNAL | | | Protein | | | LAB | | + + + + + + | pH, Urine | 5 | 5 - 9 | EXTERNAL | | | | | | LAB | | + + + + + + | Blood, | Negative | | EXTERNAL | | | Urine | | | LAB | | + + + + + + | Ketones | neg | | EXTERNAL | | | | | | LAB | | + + + + + + | Bilirubin, | Negative | | EXTERNAL | | | Urine | | | LAB | | + + + + + + | Glucose, | Negative | | EXTERNAL | | | Urine | | | LAB | | + + + + + + + + | Specimen | + + | Urine specimen | | (specimen) | + + + + + | Narrative | Performed At | + + + | CAST'S - HYALINE 2+ - 0-1+ HYALINE WBC'S - 0-0-4 RBC'S - 0-0-4 | EXTERNAL LAB | | EPITHELIAL - SQUAMOUS 1+ - 0-1+ SQUAMOUS CRYSTALS - NEG BACTERIA - | | | NEG | | + + + + +---------+ + + | Performing | Address | City/State/Zipcode | Phone Number | | Organization | | | | + +---------+ + + | EXTERNAL LAB | | | | + +---------+ + + External Lab: CBC (03/07/2018 12:00 AM PST) + + + + + + | Component | Value | Ref Range | Performed | Pathologist | | | | | At | Signature | + + + + + + | WBC | 11.7 (A) | 4.5 - 11.0 10 | EXTERNAL | | | | | | LAB | | + + + + + + | RED CELL | 4.46 | 4.3 - 5.7 10 | EXTERNAL | | | COUNT | | | LAB | | + + + + + + | Hgb | 13.4 (A) | 13.5 - 18.0 | EXTERNAL | | | | | g/dL | LAB | | + + + + + + | Hematocrit, | 41.0 | 41 - 50 % | EXTERNAL | | | POC | | | LAB | | + + + + + + | MCV | 92.0 | 81 - 99 fL | EXTERNAL | | | | | | LAB | | + + + + + + | MCH | 30 | 27 - 33 pg | EXTERNAL | | | | | | LAB | | + + + + + + | MCHC | 33 | 30 - 36 g/dL | EXTERNAL | | | | | | LAB | | + + + + + + | Platelet | 267 | 140 - 440 K/ L | EXTERNAL | | | Count | | | LAB | | | Plasma | | | | | + + + + + + | RDW-CV | 13.9 | 10.5 - 15.0 % | EXTERNAL | | | | | | LAB | | + + + + + + | MPV | | fL | EXTERNAL | | | | | | LAB | | + + + + + + | Differentia | | | EXTERNAL | | | l Type | | | LAB | | + + + + + + | % Segmented | 80.5 (A) | 39 - 80 % | EXTERNAL | | | | | | LAB | | | Neutrophils | | | | | + + + + + + | % | 10.6 (A) | 24 - 44 % | EXTERNAL | | | Lymphocytes | | | LAB | | + + + + + + | % Monocytes | 6.3 | 0 - 12 % | EXTERNAL | | | | | | LAB | | + + + + + + | % | 2.0 | 0 - 6 % | EXTERNAL | | | Eosinophils | | | LAB | | + + + + + + | % Basophils | 0.6 | 0 - 2 % | EXTERNAL | | | | | | LAB | | + + + + + + | Absolute | | / L | EXTERNAL | | | Segmented | | | LAB | | | Neutrophils | | | | | + + + + + + | Absolute | | / L | EXTERNAL | | | Lymphocytes | | | LAB | | + + + + + + | Absolute | | / L | EXTERNAL | | | Monocytes | | | LAB | | + + + + + + | Absolute | | / L | EXTERNAL | | | Eosinophils | | | LAB | | + + + + + + | Absolute | | / L | EXTERNAL | | | Basophils | | | LAB | | + + + + + + + + | Specimen | + + | Blood specimen | | (specimen) | + + + +---------+ + + | Performing | Address | City/State/Zipcode | Phone Number | | Organization | | | | + +---------+ + + | EXTERNAL LAB | | | | + +---------+ + + Parathyroid Hormone, Intact (03/07/2018 12:00 AM PST) + +-------+ + + + | Component | Value | Ref Range | Performed | Pathologist | | | | | At | Signature | + +-------+ + + + | PTH INTACT | 40.63 | 15 - 65 pg/mL | EXTERNAL | | | | | | LAB | | + +-------+ + + + + + | Specimen | + + | Blood specimen | | (specimen) | + + + +---------+ + + | Performing | Address | City/State/Zipcode | Phone Number | | Organization | | | | + +---------+ + + | EXTERNAL LAB | | | | + +---------+ + + Magnesium (03/07/2018 12:00 AM PST) + +-------+ + + + | Component | Value | Ref Range | Performed | Pathologist | | | | | At | Signature | + +-------+ + + + | Magnesium | 2.0 | 1.7 - 2.5 mg/dL | EXTERNAL | | | | | | LAB | | + +-------+ + + + + + | Specimen | + + | Blood specimen | | (specimen) | + + + +---------+ + + | Performing | Address | City/State/Zipcode | Phone Number | | Organization | | | | + +---------+ + + | EXTERNAL LAB | | | | + +---------+ + + Renal Function Panel (03/07/2018 12:00 AM PST) + + + + + + | Component | Value | Ref Range | Performed | Pathologist | | | | | At | Signature | + + + + + + | Glucose, | 101 (A) | 70 - 100 mg/dL | EXTERNAL | | | Fasting | | | LAB | | + + + + + + | BUN | 39 (A) | 6 - 23 mg/dL | EXTERNAL | | | | | | LAB | | + + + + + + | Creatinine | 1.57 (A) | 0.70 - 1.25 | EXTERNAL | | | | | mg/dL | LAB | | + + + + + + | PHOSPHORUS | | mg/dL | EXTERNAL | | | | | | LAB | | + + + + + + | Albumin | 4.3 | 3.5 - 5.0 | EXTERNAL | | | | | | LAB | | + + + + + + | Na | 144 (A) | 132 - 143 | EXTERNAL | | | | | mmol/L | LAB | | + + + + + + | K | 5.1 | 3.6 - 5.1 | EXTERNAL | | | | | mmol/L | LAB | | + + + + + + | Cl | 109 | 95 - 112 mmol/L | EXTERNAL | | | | | | LAB | | + + + + + + | CO2 | 24 | 19 - 31 mmol/L | EXTERNAL | | | | | | LAB | | + + + + + + | Anion Gap | 16.1 | 7 - 21 mmol/L | EXTERNAL | | | | | | LAB | | + + + + + + | eGFR if not | | | EXTERNAL | | | | | | LAB | | | CAMEROONIAN | | | | | + + + + + + | Phosphorus, | 3.5 | 2.5 - 5.0 | EXTERNAL | | | Inorganic | | | LAB | | + + + + + + | BUN/Creatin | 24.8 | 6.0 - 28.6 | EXTERNAL | | | ine Ratio | | | LAB | | + + + + + + | Calcium | 9.5 | 8.5 - 10.3 | EXTERNAL | | | | | mg/dL | LAB | | + + + + + + | Estimated | 44 | mg/dL | EXTERNAL | | | [...] Visit Diagnoses Not on filedocumented in this encounter
--- OUTSIDE RECORDS SUMMARY | ~2019-02-03 | XMS | Encounter Summary ---
Demographics + + + | Address | [address] | | | [place] [address] | + + + | Home Phone | | + + + | Preferred Language | Unknown | + + + | Marital Status | | + + + | Tenriism Affiliation | CAT | + + + | Race | White | + + + | Ethnic Group | Not or | + + + Author + + + | Author | [facility] | + + + | Organization | [facility] | + + + | Address | [...] Team Providers + +------+ + | Care Records Assistant Name | Role | Phone | + +------+ + PCP | Unavailable | + +------+ + Encounter Details +--------+ + + + + | Date | Type | Department | Care Team | Description | +--------+ + + + + | 04/10/ | Document-Sc | UNKNOWN DEPARTMENT | Modesto Ruiz | | | 2008 | anned | [address] [facility] | [phone] | | | | | [address] | | | | | | [place], [place] | | | | | | [address] | | | +--------+ + + + [...] [address] | | | | | | [place] [address] | | | | | | [phone] | | | | | | | | +--------+---------+ + + + documented as of this encounter Visit Diagnoses Not on filedocumented in this encounter"
--- OUTSIDE RECORDS SUMMARY | ~2019-02-03 | XMS | Encounter Summary ---
Demographics + + + | Address | [address] | | | [place] [address] | + + + | Home Phone | | + + + | Preferred Language | Unknown | + + + | Marital Status | | + + + | Evangelical Affiliation | CAT | + + + [...] Team Providers + +------+ + | Care [employer] Installer Name | Role | Phone | + +------+ + | Bartolome Frederick DO | PCP | | + +------+ + Reason for Visit + + + | Reason | Comments | + + + | Pre-op evaluation | | + + + Encounter Details +--------+---------+ + + + | Date | Type | Department | Care Team | Description | +--------+---------+ + + + | 10/24/ | Office | [facility] | Giancarlo Solis, | Pre-op evaluation | | 2019 | Visit | Preoperative | MD [address] | (Primary Dx); Other | | | | Assessment Clinic | [address] | kyphosis of | | | | [address] | [place] [address] | thoracolumbar | | | | [address] | [phone] | region; Obstructive | | | | [place], [place] | | sleep apnea; History | | | | [id number] | | of mitral valve | | | | [phone] | | replacement with | | | | | | mechanical valve; | | | | | | Nonrheumatic aortic | | | | | | valve stenosis; | | | | | | Essential | | | | | | hypertension; CKD | | | | | | (chronic kidney | | | | | | disease), stage III | | | | | | (HCC); Chronic | | | | | | anticoagulation | +--------+---------+ + + + Anesthesia Record + + + + + | Procedure Name | Responsible | Anesthesia Start | Anesthesia Stop Time | | | Anesthesiologist | Time | | + + + + + | PREANESTHETIC | | | | | EVALUATION | | | | + + + + + + + | No events on file. | + + +------+ | Meds | +------+ + + + No medications | on file. | + + + + + | No agents on file. | + + + + | No blood administrations on file. | + + + + | No LDAs on file. | + + documented in this encounter Social History + +--------+ +--------+ + | [...] + + + | Blood Pressure | 118/67 | 10/24/2018 11:03 AM | | | | | PDT | | + + + + + | Pulse | 76 | 10/24/2018 11:03 AM | | | | | PDT | | + + + + + | Temperature | 36.4 C (97.5 F) | 10/24/2018 11:03 AM | | | | | PDT | | + + + + + | Respiratory Rate | 20 | 10/24/2018 11:03 AM | | | | | PDT | | + + + + + | Oxygen Saturation | 100% | 10/24/2018 11:03 AM | | | | | PDT | | + + + + + | Inhaled Oxygen | - | - | | | Concentration | | | | + + + + + | Weight | 93 kg (205 lb) | 10/24/2018 11:03 AM | | | | | PDT | | + + + + + | Height | 172.7 cm (5' 8") | 10/24/2018 11:03 AM | | | | | PDT | | + + + + + | Body Mass Index | 31.17 | 10/24/2018 11:03 AM | | | | | PDT | | + + + + + documented in this encounter Patient Instructions Patient Instructions Giancarlo Solis MD - 10/24/2018 11:00 AM PDTEmpty stomach before reggie magdy On the day BEFORE your surgery, drink [...] FOLLOW INSTRUCTIONS FROM THE ANTICOAGULATION CLINIC REGARDING WARFARIN. TAKE ONLY the following medications with a sip of water on the morning of surgery: NOTHING Unless otherwise directed by your surgeon, do not take any Aspirin, vitamin E or non-steroi marley anti-inflammatory (NSAIDs i.e. Advil, Aleve, Ibuprofen), herbal supplements, and [place] 3 Fish Oil 10 days prior to [...] contact our office . Other Important Guidelines ? Do not shave the surgical area Do not smoke, drink alcohol or use recreational drugs for 24 hours before your surgery Watch for any change in your health condition. Let your surgeon know right away if you do not feel well. ? Do not wear makeup, perfume, lotions, deodorant, powder or hairspray. Do not wear any jewelry to the hospital. Wear loose, comfortable clothing. Leave all your valuables at home. Allow enough travel time so you re not late for your check in for surgery. ? Take a bath or shower and remember to shampoo your hair using your usual hair product bef ore your arrival at the hospital. Please remember to brush your teeth the night before and the morning of your procedure. Preventing post op complications while you are in the hospital Use an incentive spirometer or deep breathe to keep your lungs working properly an d to help prevent respiratory complications. It helps you take long, deep breaths. Use it at least once every hour while you are awake. Leg and feet exercises will maintain good circulation and help prevent blood clots in yo ur legs. Sometimes your doctor will order air compression stockings. Compressed air helps the circulation in your legs. Walking and moving will help stimulate normal circulation and deep breathing. After you r surgery, your nurse may ask you to sit, stand or walk. Going Home Your surgical team will decide when you are medically ready to go home. If you are released to go home on the same day as your procedure/surgery please note the following: You will not be able to drive. You will be required to have a competent person drive you or accompany you by taxi or pu blic transportation on the day of discharge. It is also required that you have a competent person assist you and look after you on first night after you have undergone regional blocks (72 hours for patients going home wit h regional block pump), deep sedation, and/or general anesthesia. If you stayed in the hospital after surgery, please arrange for your ride to come for yo u around 9AM on the day your doctor says you can go home. Check out time is 11AM. documented in this encounter Progress Notes Giancarlo Solis MD - 10/24/2018 11:00 AM PDTFormatting of this note might be different fr om the original. PREOPERATIVE ASSESSMENT CLINIC CONSULT NOTE Referring Surgeon: ALBINA ROBERTS MD Age: 68 y.o. Primary Care Provider: Bartolome Frederick DO Surgery Planned: XLIF + PSF L2-4 (3 HRS) Date of Planned Surgery: 11/06/18 Reason for Consult: Preoperative evaluation and risk assessment HISTORY OF PRESENT ILLNESS: Lupillo De La Paz is a 68 y.o. male here for preoperative ev aluation of medical problems in anticipation of the above procedure. Pt has dx of THORACOLU MBAR KYPHOSIS. Symptoms related to the diagnosis: Gradual, progressive lumbar back pain f or last 5 yrs. Pain starts midline lumbar, radiates to right lateral thigh and continues to big toe. Pain is constant, 3-6/10, sharp, with numbness in right thigh. Failed PT/oral me ds. No spine surgery. No epidural steroids. ROS: Prior Anesthetic Problems: No Pulmonary: no shortness of breath no cough no wheezing no Recent Respiratory Infection Pt. Has no asthma no COPD Risk factors for sleep apnea: Pt. being treated for high blood pressur e Age>50 and Gender Male pt. at high risk of MANSOOR Cardiovascular: MECHANICAL MITRAL VALVE REPLACEMENT (2002) WITH CHRONIC ANTICOAGULATION (WARFARIN). MILD A ORTIC STENOSIS/INSUFFICIENCY (TTE 09/2018) no chest pain no CHF hypertension well control led no CAD Sx no arrhythmia GI/Hepatic: no GERD no liver disease no hepatitis Renal: renal failure Type: CKD GFR 30-59 Urology/Range Manager: Urologic Conditions: incontinence Endo: no Diabetes: Neuro/Psych: No cva/tia/sz. 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 Past medical history reviewed / updated Past Medical History: Diagnosis Date Bleeding tendency (HCC) Essential hypertension Past surgery reviewed / updated Past Surgical History Procedure Laterality Date Tka (total knee arthroplasty) Left 2018 Knee arthroscopy Bilateral multiple Jaw replacement 2002 Total knee replacement 2017 Appendectomy 1965 Cataract surgery of both eyes 1995, 1997 Family history reviewed / updated Family History Problem Relation Hypertension Mother Cancer Mother Hypertension Father Heart Disease Father Stroke Father Social history reviewed / updated Social History Tobacco Use Smoking status: Former Smoker Packs/day: 1.00 Years: 6.00 Pack years: 6.00 Types: Cigars Last attempt to quit: 03/03/2018 Years since quittin.6 Smokeless tobacco: Current User Types: Chew Substance Use Topics Alcohol use: No Drug use: No Past Anesthesia history reviewed / updated Patient: No Complications Family: No Complications Perioperative cardiac risks: Intraperitoneal or Intrathoracic no CAD no CHF no CVA no CKD with creatinine >2 NO DM treated with insulin no Current medications reviewed / updated Current Outpatient Medications Medication Sig ascorbic acid SR 1,000 mg oral tablet Take 500 mg by mouth once daily in the evening. atorvastatin 20 mg oral tablet Take 20 mg by mouth once daily in the evening. baclofen 20 mg oral tablet Take 40 mg by mouth once daily in the evening. Lkqckko-Pkskcfviv-Hitq oral tablet Take by mouth once daily. [...] once daily. 2.5 mg on Sunday, , Allergies reviewed / updated Allergies Allergen Reactions Penicillins Anaphylaxis Stopped breathing Codeine Nausea Physical Exam: Last Vitals: BP 118/67 (BP Location: Right upper arm, Patient Position: Sitting) | Pulse 7 6 | Temp 36.4 C (97.5 F) (Forehead) | Resp 20 | Ht 1.727 m (5' 8") | Wt 93 kg (205 l b) | SpO2 100% | BMI 31.17 kg/m | BSA 2.11 m Body mass index is 31.17 kg/m. General: Appearance: Age appropriate, No distress and Smiling LOC: Alert HEENT: Normocephalic/Atraumatic, Normal sclerae/conjunctivae, EOMI, PERRL and Oropharyngeal mucos a pink/moist Airway: Dentition: edentulous upper jaw dental implants, bridges or caps present missing teeth [place] ition Comments: 1 RT UPPER MOLAR LEFT. Mallampati: 3 Mouth Opening: > 3 cm TM Distance:> 6 c m Phan: No C-Spine ROM: Normal Neck Anatomy: Normal Jaw Protrusion: Normal (lower incisors go above upper incisors) Pulmonary: Respiratory: pulmonary exam normal Breath Sounds: breath sounds normal Cardiovascular: Rhythm: Regular Rate: Normal Heart sounds: murmur Cardiovascular comments: NO GALLOPS, LEDESMA TIID BRUITS. 3/6 HSM Abdomen: General: Normal Body Habitus: normal Bowel Sounds: bowel sounds are normal Musculoskeletal: Range of Motion: Normal range of motion Neuro/Psych: Affect: Normal Cognitive Status: Normal Speech: Normal speech Cranial Nerves: Normal Skin: Color: skin color normal Texture: Normal Turgor: turgor normal Temperature: Warm REVIEW/MANAGEMENT: ALL LABS FROM [facility] (SEE CARE EVERYWHERE TAB) CBC w/ Auto Differential (10/02/2018 14:10 PDT) CBC w/ Auto Differential (10/02/2018 14:10 PDT) CBC 9.6 4.5 - 11.0 RBC COUNT 4 4 - 6 Hemoglobin 11.4 (A) 13.5 - 18.0 Hematocrit, BF 34.2 (A) 41 - 50 Platelet Count Plasma 214 140 - 440 NEUTROPHILS BL 70 39 - 80 % LYMPHOCYTES BL 17.2 (A) 24 - 44 % MONOCYTES BAL 9.1 0 - 12 MCV 92.2 81 - 99 RDW 13.3 10.5 - 15.0 MCH 31 27 - 33 MCHC, POC 33 30 - 36 EOSINOPHILS BL 3.2 0 - 6 % BASOPHILS BAL 0.5 0 - 2 Lab Results Component Value Date NA 138 10/24/2018 K 4.7 10/24/2018 CL 105 10/24/2018 BICARB 26 10/24/2018 BUN 36 10/24/2018 CR 1.7 10/24/2018 GLU 93 10/24/2018 CA 9.6 10/24/2018 AST 19 10/24/2018 ALT 20 10/24/2018 AP 81 10/24/2018 TBILI 0.4 10/24/2018 TP 7.2 10/24/2018 ALB 4.6 10/24/2018 DIRBILI 0.1 07/04/2002 ECG 12 lead 10/10/2018 [facility] Component Name Value Ref Range VENTRICULAR RATE EKG 64 BPM ATRIAL RATE 64 BPM P-R INTERVAL 158 ms QRS DURATION 116 ms Q-T INTERVAL 456 ms Q-T INTERVAL (CORRECTED) 470 ms P WAVE AXIS 13 degrees QRS AXIS 8 degrees T AXIS 39 degrees INTERPRETATION TEXT Normal sinus rhythm Incomplete left bundle branch block Borderline ECG Outside records reviewed from CareEverywhere and "media" tab. Findings pertinent to this pr eoperative visit are as follows: ECHO Interpretation of Outside Films 09/19/2018 [facility] Result Impression 1. Overall left ventricular systolic function is low-normal with an EF about 55%. 2. There is mild concentric left ventricular hypertrophy and mild asymmetric septal hypertr ophy. 3. The right ventricle is normal in size and function. 4. The left atrium is markedly enlarged by volume. 5. Mild aortic stenosis with peak/mean pressure gradients of 27.20mmHg / 17.49mmHg, the aor tic valve area by continuity equation is 1.6cm.There is also mild aortic regurgita tion. 6. The [address] [place] mechanical MVR is well seated, with normal function. 7. There is borderline pulmonary hypertension. 8. There are only mild changes noted in comp arison to the previous echocardiographic study, done 11/29/17, as reported below. Perioperative risk calculators Shearer Activity Scale (METS): 7.01 Revised Cardiac Risk Index (RCRI) Estimate of major adverse cardiac events: 0.4% [place] Perioperative Cardiac Risk: 0.7% ASA class 3 ASSESSMENT and RECOMMENDATIONS: Perioperative risk assessment: Lupillo De La Paz is a 68 y.o. male with diagnosis o f lumbar spinal stenosis, scheduled for XLIF/PSF L2-4. Based on the clinical information ob tained and reviewed during this visit, the overall assessment is that the patient is having elective major surgery with identified risk factors. The patient is optimized for surgery. Additional testing is not needed. Medication management recommendations: The patient was advised to continue all usual med ications except as noted in Patient Instructions (After Visit Summary given to pt). Pre-procedure antibiotic recommendation: Per standard protocol for coverage for endocard itis prophylaxis: PT IS ALLERGIC TO PENICILLIN. CLINDAMYCIN 600 mg iv or Vancomycin 15-20 m g/kg (not to exceed 2 gm) iv 30-60 mins preincision. OBSTRUCTIVE SLEEP APNEA: Started but did not complete sleep study years ago, and has never used cpap. Moderate risk by STOP-BANG score. Rec: Post-op oximetry monitoring. 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 He saw his railway yard assistant (Mikhail Jennings , [place], [place]) 2 weeks ago and was deemed optimized to proceed with planned surgery. He pratt d a TTE in September which confirmed nl mechanical mitral valve function (see above) with nataliya l LVEF 55%. AORTIC STENOSIS/REGURGITATION: Mild by last month's TTE. KORTNEY 1.6 cm2 Peak gradient 27 mm Hg. Asymptomatic. CHRONIC ANTICOAGULATION: On warfarin, managed remotely by [place] [facility] ([phone]). Bridging (pre and post-op) is indicated in presence of mechanical mitral valve. [facility] and [facility] clin ic is awaiting surgeon to specify target INR. Once that is done, they will coordinate warfa rin schedule with Lovenox bridge. HYPERTENSION: Controlled on losartan/verapamil/spironolactone. Will hold losartan 24 hrs p rior to surgery. CHRONIC KIDNEY DISEASE: Stage 3 with baseline serum creatinine around 1.6. Had risen to 2 .5 last month but back down to 1.7 today. Usual periop cautions: Avoidance of nephrotoxins (NSAIDs/iv contrast), prompt rx of perioperative hypotension, maintenance of euvolemia. I spent time (60 minutes, >50% of the visit) coordinating care with coagulation clinic, co unseling the pt regarding perioperative risk (cardiac/bleeding/ DVT/ respiratory failure/ i nfection, etc) and methods to mitigate risk. I advised the patient regarding NPO requiremen ts, hydration before surgery, showering, general body hygiene. All pre-procedure instructio ns given to the patient (after-visit summary). All of patient's questions were addressed. The patient verbalized understanding of the instructions given. Thank you for the opportunity to contribute to this patient's care. Giancarlo Solis MD [facility] [address] [place] [address] PREOPERATIVE ASSESSMENT CLINIC [address] [place] [id number] Rosalia Aragno MA - 10/24/2018 11:00 AM KARELY have reviewed medical history, medication and allergies with the patient. Blood drawn from right arm and no ekg done Additional Information: Indicators of possible sleep apnea: Currently being treated for HTN Current home treatments: N/A Prostheses/Implants: yes - mechanical valve and knee replacement Assistive Devices: None Will accept a Blood Transfusion, if needed? yes Hospitalization in the last 60 days? no If so, where and why? Dental Issues: Missing teeth Rosalia Hanna MA [facility] PREOPERATIVE ASSESSMENT CLINIC [address] [place] [address] [address] [place] [address] documented in this en counter Plan of Treatment +--------+---------+ + + + | Date | Type | Specialty | Care Team | Description | +--------+---------+ + + + | 04/30/ | Office | Neurological Surgery | Albina Roberts MD | | | 2020 | Visit | | [address] | | | | | | [facility] [address] | | | | | | [place] [address] | | | | | | [phone] | | | | | | | | +--------+---------+ + + + documented as of this encounter Procedures + +--------+ + + + | Procedure Name | Priori | Date/Time | Associated Diagnosis | Comments | | | ty | | | | + +--------+ + + + | CULTURE, MRSA/MSSA | Routin | 11/06/2018 | Pre-op evaluation | Results for this | | SCREEN | e | 7:04 AM | | procedure are in the | | | | PDT | | results section. | + +--------+ + + + | CONFIRMATORY ABO/RH | Routin | 10/24/2018 | Pre-op evaluation | Results for this | | | e | 12:06 PM | | procedure are in the | | | | PDT | | results section. | + +--------+ + + + | BLOOD BANK HOLD TUBE | Routin | 10/24/2018 | Pre-op evaluation | Results for this | | - DON | e | 12:06 PM | | procedure are in the | | | | PDT | | results section. | | T PROCESS | | | | | + +--------+ + + + | COMPLETE METABOLIC | Routin | 10/24/2018 | Pre-op evaluation | Results for this | | SET | e | 12:05 PM | | procedure are in the | | (NA,K,CL,CO2,BUN,CRE | | PDT | | results section. | | AT,GLUC,CA,AST,ALT,B | | | | | | REMA TOTAL,ALK | | | | | | PHOS,ALB,PROT TOTAL) | | | | | + +--------+ + + + documented in this encounter Results CULTURE, MRSA/MSSA SCREEN (11/06/2018 7:04 AM PDT) + + + + + + | Component | Value | Ref Range | Performed | Pathologist | | | | | At | Signature | + + + + + + | CULTURE | No Methicillin Resistant | | [facility] | | | RESULT | Staph aureus (MRSA) or | | [facility] | | | MRSA/MSSA | Methicillin Susceptible | | | | | | Staph aureus (MSSA) | | | | | | isolated. | | | | + + + + + + + + | Specimen | + + | Swab - Nasal | | (qualifier value) | + + + + + + + | Performing | Address | City/State/Zipcode | Phone Number | | Organization | | | | + + + + + | [facility] | [address] | [place] [address] | | | LAB | | | | + + + + + CONFIRMATORY ABO/RH (10/24/2018 12:06 PM PDT) + + + + + + | Component | Value | Ref Range | Performed | Pathologist | | | | | At | Signature | + + + + + + | ABO Group | O | | [facility] | [facility] | | + + + + + + | Rh Type | Positive | | [facility] | | | | [facility] | | + + + + + + + + | Specimen | + + | Blood - Blood | | (substance) | + + + + + + + | Performing | Address | City/State/Zipcode | Phone Number | | Organization | | | | + + + + + | [facility] | [address] | [place] [address] | | | BANK | | | | + + + + + BLOOD BANK HOLD TUBE - DON T PROCESS (10/24/2018 12:06 PM PDT) + + + + + + | Component | Value | Ref Range | Performed | Pathologist | | | | | At | Signature | + + + + + + | SPECIMEN | Sample received with | | [facility] | | | COLLECTED, | adeq label/volume to | | BLOOD BANK | | | HELD | process | | | | + + + + + + + + | Specimen | + + | Blood - Blood | | (substance) | + + + + + + + | Performing | Address | City/State/Zipcode | Phone Number | | Organization | | | | + + + + + | [facility] | [address] | [place] [address] | | | BANK | | | | + + + + + COMPLETE METABOLIC SET (NA,K,CL,CO2,BUN,CREAT,GLUC,CA,AST,ALT,BILI TOTAL,ALK PHOS,ALB,PROT TOTAL) (10/24/2018 12:05 PM PDT) + +---------+ + + + | Component | Value | Ref Range | Performed | Pathologist | | | | | At | Signature | + +---------+ + + + | GLUCOSE, | 93 | 70 - 99 mg/dL | [facility] | | | PLASMA | | | [facility] | | | (LAB) | | | | | + +---------+ + + + | BUN, PLASMA | 36 (H) | 6 - 20 mg/dL | [facility] | | | (LAB) | | | [facility] | | + +---------+ + + + | CREATININE, | 1.7 (H) | 0.6 - 1.3 mg/dL | [facility] | | | PLASMA | | | [facility] | | + +---------+ + + + | SODIUM, | 138 | 136 - 145 | [facility] | | | PLASMA | | mmol/L | [facility] | | | (LAB) | | | | | + +---------+ + + + | POTASSIUM, | 4.7 | 3.4 - 5.0 | [facility] | | | PLASMA | | mmol/L | [facility] | | | (LAB) | | | | | + +---------+ + + + | CHLORIDE, | 105 | 97 - 108 mmol/L | [facility] | | | PLASMA | | | [facility] | | | (LAB) | | | | | + +---------+ + + + | TOTAL CO2, | 26 | 21 - 32 mmol/L | [facility] | | | PLASMA | | | [facility] | | | (LAB) | | | | | + +---------+ + + + | CALCIUM, | 9.6 | 8.6 - 10.2 | [facility] | | | PLASMA | | mg/dL | [facility] | | | (LAB) | | | | | + +---------+ + + + | BILIRUBIN | 0.4 | 0.3 - 1.2 mg/dL | [facility] | | | TOTAL | | | [facility] | | + +---------+ + + + | TOTAL | 7.2 | 6.4 - 8.2 g/dL | [facility] | | | PROTEIN, | | | [facility] | | | PLASMA | | | | | | (LAB) | | | | | + +---------+ + + + | ALBUMIN, | 4.6 | 3.5 - 5.2 g/dL | [facility] | | | PLASMA | | | [facility] | | | (LAB) | | | | | + +---------+ + + + | ALK PHOS | 81 | 34 - 104 U/L | [facility] | | | | | | [facility] | | + +---------+ + + + | AST(SGOT) | 19 | 13 - 39 U/L | [facility] | | | | | | [facility] | | + +---------+ + + + | ALT (SGPT) | 20 | 7 - 52 U/L | [facility] | | | | | | [facility] | | + +---------+ + + + | EGFR | 49 (L) | >60 mL/min | [facility] | | | - | | | [facility] | | | CHINESE | | | | | + +---------+ + + + | EGFR NON | 40 (L) | >60 mL/min | [facility] | | | -DOLORES | | | [facility] | | | RICAN | | | | | + +---------+ + + + | ANION GAP | 7 | 4 - 11 mmol/L | [facility] | | | | | | [facility] | | + +---------+ + + + | BUN/CREATIN | 21 | 8 - 25 | [facility] | | | INE RATIO | | | [facility] | | + +---------+ + + + | GLOBULIN | 2.6 | 2.3 - 3.5 gm/dL | [facility] | | | LVL | | | [facility] | | + +---------+ + + + | ALBUMIN/AMINATA | 1.8 | 0.9 - 2.0 | [facility] | | | BULIN RATIO | | | [facility] | | + +---------+ + + + + + | Specimen | + + | Blood - Blood | | (substance) | + + + + + | Narrative | Performed At | + + + | GFR is estimated using the MDRD equation recommended by the National | | | Kidney Disease Education Program. Estimated GFR Interpretive | [facility] | | Information: <60 mL/min/1.73 sq m Chronic Kidney | [facility] | | Disease <15 mL/min/1.73 sq m Kidney Failure | | | Estimated GFR greater than 60 mL/min/1.73 sq m is of limited clinical | | | value. The MDRD equation is not valid in the following situations: - | | | Patients under 18 years of age - Severe malnutrition or obesity - | | | Vegetarian diet - Rapidly changing kidney function - Amputees, | | | paraplegics, or other muscle-wasting diseases | | + + + + + + + + | Performing | Address | City/State/Zipcode | Phone Number | | Organization | | | | + + + + + | [facility] | [address] | [place] [address] | | | LAB | | | | + + + + + documented in this encounter Visit Diagnoses + + | Diagnosis | + + | Pre-op evaluation - Primary Preoperative examination, unspecified | + + | Other kyphosis of thoracolumbar region | + + | Obstructive sleep apnea Obstructive sleep apnea (adult) (pediatric) | + + | History of mitral valve replacement with mechanical valve Heart valve replaced by | | other means | + + | Nonrheumatic aortic valve stenosis Aortic valve disorders | + + | Essential hypertension | + + | CKD (chronic kidney disease), stage III (HCC) Chronic kidney disease, Stage III | | (moderate) | + + | Chronic anticoagulation Encounter for long-term (current) use of anticoagulants | + + documented in this encounter
--- OUTSIDE RECORDS SUMMARY | ~2019-02-03 | XMS | Encounter Summary ---
Demographics + + + | Address | [address] | | | [place] [address] | + + + | Home Phone | | + + + | Preferred Language | Unknown | + + + | Marital Status | | + + + | Gnosticist Affiliation | CAT | + + + [...] Team Providers + +------+ + | Care Service Operator Name | Role | Phone | + +------+ + | Bartolome Frederick DO | PCP | | + +------+ + Encounter Details +--------+ + + + + | Date | Type | Department | Care Team | Description | +--------+ + + + + | 01/30/ | Hospital | Diagnostic Imaging | Jeimy Mera, | Arrived | | 2019 | Encounter | at [facility] | PA-C [address] | | | | | [facility] [address] | | | | [address] [place], | [place] [address] | | | | | [place] [address] | [phone] | | | | | [phone] | | | +--------+ + + + [...] + + documented as of this encounter Functional Status + + + [...] + + documented as of this encounter Medications at Time of Discharge + + + +---------+ + + | Medication | Sig | Dispensed | Refills | Start | End Date | | | | | | Date | | + + + +---------+ + + | acetaminophen 500 | Take 2 tablets by | | 0 | 11/10/19 | | | mg oral tablet | mouth every six | | | 19 | | | | hours as needed for | | | | | | | mild pain. | | | | | + + + +---------+ + + | ascorbic acid SR | Take 500 mg by mouth | | 0 | | | | 1,000 mg oral tablet | once daily in the | | | | | | | evening. | | | | | + + + +---------+ + + | atorvastatin 20 mg | Take 20 mg by mouth | | 0 | 03/19/19 | | | oral tablet | once daily in the | | | 18 | | | | evening. | | | | | + + + +---------+ + + | baclofen 20 mg | Take 0.5 tablets by | | 0 | 11/10/19 | | | oral tablet | mouth three times | | | 19 | | | | daily as needed | | | | | | | (muscle spasms). | | | | | + + + +---------+ + + | | Take by mouth once | | 0 | | | | Zeihvfy-Dxscenbmj-Jp | daily. | | | | | | nc oral tablet | | | | | | + + + +---------+ + + | clindamycin 300 mg | Take 1 capsule by | 30 | 0 | 11/11/19 | | | oral capsule | mouth every eight | capsule | | 19 | | | | hours. | | | | | + + + +---------+ + + | cyanocobalamin | Take 1 tablet by | | 0 | | | | (VITAMIN B-12) 1,000 | mouth once daily. | | | | | | mcg oral tablet | | | | | | + + + +---------+ + + | enoxaparin 80 | Inject 0.8 mL under | | 0 | 11/10/19 | | | mg/0.8 mL | the skin (SUBC) | | | 19 | | | subcutaneous syringe | every twelve hours. | | | | | | | Until INR is above | | | | | | | 2.5 then stop. Risks | | | | | | | of lovenox | | | | | | | discussed with | | | | | | | patient | | | | | + + + +---------+ + + | Ferrous Sulfate | Take 324 mg by mouth | | 0 | | | | 324 mg (65 mg iron) | once daily. | | | | | | oral tablet,delayed | | | | | | | release (DR/EC) | | | | | | + + + +---------+ + + | gabapentin 300 mg | Take 600 mg by mouth | | 0 | 07/25/19 | | | oral capsule | three times daily. | | | 18 | | + + + +---------+ + + | rOPINIRole 4 mg | Take 4 mg by mouth | | 0 | | | | oral tablet | once daily in the | | | | | | | evening. | | | | | + + + +---------+ + + | tamsulosin 0.4 mg | Take 0.4 mg by mouth | | 0 | | | | oral capsule | once daily. | | | | | + + + +---------+ + + | temazepam 30 mg | Take 30 mg by mouth | | 0 | | | | oral capsule | once daily at | | | | | | | bedtime. | | | | | + + + +---------+ + + | verapamil SR 180 | Take 1 tablet by | | 0 | 11/13/19 | | | mg oral tablet | mouth once daily. | | | 19 | | | extended release | Start on 11/12/18 if | | | | | | | systolic blood | | | | | | | pressure has been | | | | | | | above 130 mm of hg | | | | | + + + +---------+ + + | warfarin 5 mg oral | Take 0.5 tablets by | | 0 | 11/10/19 | | | tablet | mouth once daily. 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 | | | | | + + + +---------+ + + documented as of this encounter Plan of Treatment +--------+---------+ + + + | Date | Type | Specialty | Care Team | Description | +--------+---------+ + + + | 04/30/ | Office | Neurological Surgery | Michael Durbin MD | | | 2020 | Visit | | [address] [facility] [address] | | | | | | [place] [address] | | | | | | [place] [address] | | | | | | [phone] | | | | | | | | +--------+---------+ + + + documented as of this encounter Procedures + +--------+ + + + | Procedure Name | Priori | Date/Time | Associated Diagnosis | Comments | | | ty | | | | + +--------+ + + + | X-RAY SPINE | Routin | 01/30/2019 | S/P lumbar fusion | Results for this | | LUMBOSACRAL 2 VIEWS | e | 12:24 PM | | procedure are in the | | | | PST | | results section. | + +--------+ + + + documented in this encounter Results X-RAY SPINE LUMBOSACRAL 2 VIEWS (01/30/2019 12:24 PM PST) + + | Specimen | + + | | + + + + + | Narrative | Performed At | + + + | EXAM DESCRIPTION: X-RAY SPINE LUMBOSACRAL 2 VIEWS CLINICAL | [facility] | | HISTORY: 68 y/o M patient. Back pain. Follow-up from prior lumbar | RADIOLOGY VOICE | | surgery. COMPARISON: 12/05/2018. TECHNIQUE: AP and lateral | RECOGNITION | | views of the lumbar spine. FINDINGS: Surgical sequela of | | | posterior mid lumbar fusion with screws bilaterally at L2, L3 and L4 | | | and interbody disc spacers at L2-3 and L3-4. Retrolisthesis of L2 | | | with respect to L3 measures 7 mm, stable from 12/05/2018. | | | Retrolisthesis of L3 with respect to L4 measures 3 mm, also stable | | | since 12/05/2018. No evidence of hardware failure. No fracture lines | | | are identified. Vertebral body heights are maintained. | | | Nwil-dc-cdumxufg spondylotic changes are again seen in the upper | | | lumbar levels. IMPRESSION: Stable sequela of posterior fusion. | | | Stable retrolisthesis at L2-3 and L3-4. No new abnormalities | | | identified. Signed By: Hollis Arriaga DO On 01/30/2019 | | | 14:45:01 | | + + + + ---------+ | Procedure Note | + ---------+ | Service Account, Radiant Res In Interface - 01/30/2019 2:48 PM PST EXAM | | DESCRIPTION:X-RAY SPINE LUMBOSACRAL 2 VIEWS CLINICAL HISTORY:68 y/o M patient. Back | | pain. Follow-up from prior lumbar surgery. COMPARISON:12/05/2018. TECHNIQUE:AP and | | lateral views of the lumbar spine. FINDINGS:Surgical sequela of posterior mid lumbar | | fusion with screws bilaterally at L2, L3 and L4 andinterbody disc spacers at L2-3 and | | L3-4. Retrolisthesis of L2 with respect to L3 measures 7 mm,stable from | | 12/05/2018.Retrolisthesis of L3 with respect to L4 measures 3 mm, also stable since | | 12/05/2018. No evidence ofhardware failure. No fracture lines are identified.Vertebral | | body heights are maintained. Kzsz-jo-vpxbwicx spondylotic changes are again seen in | | theupper lumbar levels. IMPRESSION:Stable sequela of posterior fusion.Stable | | retrolisthesis at L2-3 and L3-4.No new abnormalities identified. Signed By: Bart, | | Hollis THOMPSON On 01/30/2019 14:45:01 | |FINDINGS: | |Surgical sequela of posterior mid lumbar fusion with screws bilaterally at L2, L3 and L4 an d | |interbody disc spacers at L2-3 and L3-4. Retrolisthesis of L2 with respect to L3 measures 7 mm, | |stable from 12/05/2018. | |Retrolisthesis of L3 with respect to L4 measures 3 mm, also stable since 12/05/2018. No silvio dence of | |hardware failure. No fracture lines are identified. | |Vertebral body heights are maintained. Pppg-vn-hivcyhql spondylotic changes are again seen in the | |upper lumbar levels. | | | |IMPRESSION: | |Stable sequela of posterior fusion. | |Stable retrolisthesis at L2-3 and L3-4. | |No new abnormalities identified. | | | | | |Signed By: Hollis Arriaga DO On 01/30/2019 14:45:01 | + ---------+ + + + + + | Performing | Address | City/State/Zipcode | Phone Number | | Organization | | | | + + + + + | [facility] | [address] | [place] [address] | [phone] | | VOICE RECOGNITION | | | | + + + + + documented in this encounter Visit Diagnoses + + | Diagnosis | + + | S/P lumbar fusion Arthrodesis status | + + documented in this encounter"
--- OUTSIDE RECORDS SUMMARY | ~2019-02-03 | XMS | Encounter Summary ---
Demographics + + + | Address | [address] | | | [place] [address] | + + + | Home Phone | | + + + | Preferred Language | Unknown | + + + | Marital Status | | + + + | Congregational Affiliation | 1041 | + + + | Race | Unknown | + + + | Ethnic Group | Unknown | + + + Author + + + | Author | [facility] | | | and [place] | + + + | Organization | [facility] | | | [...] [place] | | | | | [address] | | + + + + + Care Team Providers + +------+ + | Care Electrical Test Engineer Name | Role | Phone | + +------+ + | Bartolome Frederick DO | PCP | | + +------+ + Encounter Details +--------+ + + + + | Date | Type | Department | Care Team | Description | +--------+ + + + + | 08/16/ | Orders Only | [facility] | Aly Shukla, | | | 2017 | | NEPHROLOGY [place] | 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 [address] | | | | [address] [place] | [address] | | | | | [address] [place], [place] | [facility] [place] | | | | | [address] | [address] | | | | | [phone] | [phone] | | | | | | | [...] | + +-------+---+---+ + + | Comments: Quit Snuff in 2002 | + + + + [...] 2020 | Visit | | [address] [facility] | | | | | | [address] [place], [place] | | | | | | [address] | | | | | | | | +--------+---------+ + + + documented as of this encounter Procedures + +--------+ + + + | Procedure Name | Priori | Date/Time | Associated Diagnosis | Comments | | | ty | | | | + +--------+ + + + | EXTERNAL LAB: CBC | Routin | 08/16/2017 | | Results for this | | | e | 2:45 PM | | procedure are in the | | | | PDT | | results section. | + +--------+ + + + | PROTEIN/CREATININE | Routin | 08/16/2017 | | Results for this | | RATIO, URINE | e | 2:45 PM | | procedure are in the | | | | PDT | | results section. | + +--------+ + + + | URIC ACID | Routin | 08/16/2017 | | Results for this | | | e | 2:45 PM | | procedure are in the | | | | PDT | | results section. | + +--------+ + + + | PARATHYROID HORMONE, | Routin | 08/16/2017 | | Results for this | | INTACT | e | 2:45 PM | | procedure are in the | | | | PDT | | results section. | + +--------+ + + + | MAGNESIUM | Routin | 08/16/2017 | | Results for this | | | e | 2:45 PM | | procedure are in the | | | | PDT | | results section. | + +--------+ + + + | RENAL FUNCTION PANEL | Routin | 08/16/2017 | | Results for this | | | e | 2:45 PM | | procedure are in the | | | | PDT | | results section. | + +--------+ + + + documented in this encounter Results Protein/Creatinine Ratio, Urine (08/16/2017 2:45 PM PDT) + + + + + + | Component | Value | Ref Range | Performed | Pathologist | | | | | At | Signature | + + + + + + | Protein/Cre | 228.6 (A) | 0 - 150 | EXTERNAL [...] + +---------+ + + External Lab: CBC (08/16/2017 2:45 PM PDT) + + + + + + | Component | Value | Ref Range | Performed | Pathologist | | | | | At | Signature | + + + + + + | WBC | 15.8 (A) | 4.5 - 11.0 10 | EXTERNAL | | | | | | LAB | | + + + + + + | RED CELL | 4.11 (A) | 4.3 - 5.7 10 | EXTERNAL | | | COUNT | | | LAB | | + + + + + + | Hgb | 12.5 (A) | 13.5 - 18.0 | EXTERNAL | | | | | g/dL | LAB | | + + + + + + | Hematocrit, | 38.3 (A) | 41 - 50 % | EXTERNAL | | | POC | | | LAB | | + + + + + + | MCV | 93.2 | 81 - 99 fL | EXTERNAL [...] + + + + | Platelet | 253 | 140 - 440 K/ L | EXTERNAL | | | Count | | | LAB | | | Plasma | | | | | + + + + + + | RDW-CV | 15.3 (A) | 10.5 - 15.0 % | EXTERNAL [...] + + + | % Segmented | | % | EXTERNAL | | | | | | LAB | | | Neutrophils | | | | | + + + + + + | % | | % | EXTERNAL | | | Lymphocytes | | | LAB | | + + + + + + | % Monocytes | | % | EXTERNAL | | | | | | LAB | | + + + + + + | % | | % | EXTERNAL | | | Eosinophils | | | LAB | | + + + + + + | % Basophils | | % | EXTERNAL | | | | [...] | | | + +---------+ + + Uric Acid (08/16/2017 2:45 PM PDT) + +-------+ + + + | Component | Value | Ref Range | Performed | Pathologist | | | | | At | Signature | + +-------+ + + + | Uric Acid | 7.3 | 4.4 - 7.6 | EXTERNAL | | | | | [...] + +---------+ + + Parathyroid Hormone, Intact (08/16/2017 2:45 PM PDT) + +-------+ + + + | Component | Value | Ref Range | Performed | Pathologist | | | | | At | Signature | + +-------+ + + + | PTH INTACT | 48.19 | 15 - 65 pg/mL | EXTERNAL [...] | | + +---------+ + + Magnesium (08/16/2017 2:45 PM PDT) + +-------+ + + + | Component [...] + +---------+ + + Renal Function Panel (08/16/2017 2:45 PM PDT) + + + + + + | Component | Value | Ref Range | Performed | Pathologist | | | | | At | Signature | + + + + + + | Glucose, | 76 | 70 - 100 mg/dL | EXTERNAL | | | Fasting | | | LAB | | + + + + + + | BUN | 34 (A) | 6 - 23 mg/dL | EXTERNAL | | | | | | LAB | | + + + + + + | Creatinine | 1.55 (A) | 0.7 - 1.25 | EXTERNAL | | | | | mg/dL | LAB | | + + + + + + | PHOSPHORUS | 3.5 | 2.5 - 5.0 mg/dL | EXTERNAL | | | | | | LAB | | + + + + + + | Albumin | 4.1 | 3.5 - 5.0 | EXTERNAL | | | | | | LAB | | + + + + + + | Na | 136 | 132 - 143 | EXTERNAL | | | | | mmol/L | LAB | | + + + + + + | K | 4.4 | 3.6 - 5.1 | EXTERNAL | | | | | mmol/L | LAB | | + + + + + + | Cl | 105 | 95 - 112 mmol/L | EXTERNAL | | | | | | LAB | | + + + + + + | CO2 | 22 | 19 - 31 mmol/L | EXTERNAL | | | | | | LAB | | + + + + + + | Anion Gap | 13.4 | 7 - 21 mmol/L | EXTERNAL | | | | | | LAB | | + + + + + + | eGFR if not | | | EXTERNAL | | | | | | LAB | | | EMIRATI | | | | | + + + + + + | Phosphorus, | | | EXTERNAL | | | Inorganic | | | LAB | | + + + + + + | BUN/Creatin | 21.9 | 6.0 - 28.6 | EXTERNAL | | | ine Ratio | | | LAB | | + + + + + + | Calcium | 9.4 | 8.4 - 10.2 | EXTERNAL | | | | | mg/dL | LAB | | + + + + + + | Estimated | 45 (A) | 60 mg/dL | EXTERNAL | | | GFR [...]
--- OUTSIDE RECORDS SUMMARY | ~2019-02-03 | XMS | Encounter Summary ---
Demographics + + + | Address | [address] | | | [place] [address] | + + + | Home Phone | | + + + | Preferred Language | Unknown | + + + | Marital Status | | + + + | Confucianism Affiliation | 1041 | + + + | Race | Unknown | + + + | Ethnic Group | Unknown | + + + Author + + + | Author | [facility] | | | and [place] | + + + | Organization | [facility] | | | [...] [place] | | | | | [address] | | + + + + + Care Team Providers + +------+ + | Care Button Cutter Name | Role | Phone | + +------+ + | Bartolome Frederick DO | PCP | | + +------+ + Reason for Referral Diagnostic/Screening (Routine) + +--------+ + + + + | Status | Reason | Specialty | Diagnoses / | Referred By | Referred To | | | | | Procedures | Contact | Contact | + +--------+ + + + + | Pending | | Radiology | Diagnoses | Michaela, | | | Review | | | History of | Wesley Mcdonald, | | | | | | mitral valve | MD [address] | | | | | | replacement | [address] | | | | | | with | [address] | | | | | | mechanical | [place], [place] | | | | | | valve | [address] | | | | | | Aortic valve | Phone: | | | | | | stenosis, | [phone] | | | | | | mild | Fax: | | | | | | Procedures | [phone] | | | | | | ECHO | | | | | | | Complete | | | + +--------+ + + + + Reason for Visit + + + | Reason | Comments | + + + | Follow-up | pre op clearance | + + + Encounter Details +--------+---------+ + + + | Date | Type | Department | Care Team | Description | +--------+---------+ + + + | 10/10/ | Office | [facility] | Wesley Jennings, | Hypertension, | | 2018 | Visit | CARDIOLOGY [place] | [address] | unspecified type | | | | [address] | [address]ED, | (Primary Dx); | | | | [place], [place] | [place] [address] | History of mitral | | | | [address] | [phone] | valve replacement | | | | [phone] | | with mechanical | | | | | | valve; Aortic | | | | | | stenosis, mild; | | | | | | Essential | | | | | | hypertension; | | | | | | Hypotension, | | | | | | unspecified | | | | | | hypotension type; | | | | | | Mixed | | | | | | hyperlipidemia; | | | | | | Aortic valve | | | | | | stenosis, mild; | | | | | | Preoperative | | | | | | cardiovascular | | | | | | examination; | | | | | | Degenerative lumbar | | | | | | disc | +--------+---------+ + + + Social History [...] | Shots of liquor 0-1 | | [place]) | | | Standard drinks or | [...] + + + | Blood Pressure | 140/72 | 10/10/2018 11:19 AM | | | | | PDT | | + + + + + | Pulse | 71 | 10/10/2018 11:19 AM | | | | | PDT | | + + + + + | Temperature | - | - | | + [...] | Weight | 94.9 kg (209 lb 4.8 | 10/10/2018 11:19 AM | | | | oz) | PDT | | + + + + + | Height | 177.8 cm (5' 10") | 10/10/2018 11:19 AM | | | | | PDT | | + + + + + | Body Mass Index | 30.03 | 10/10/2018 11:19 AM | | | | | PDT | | + + + + + documented in this encounter Progress Notes Wesley Jennings MD - 10/10/2018 11:15 AM PDTFormatting of this note might be different fro m the original. Subjective: Patient ID: Lupillo Castaneda is a 68 y.o. male. Patient's medications, allergies, past medical, surgical, social and family histories were obtained and reviewed as appropriate. HPI Mr. 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 He more recently found to have mi ld aortic stenosis, which seems to be progressing based on the measurements from his echocar diogram last year, but his more recent study last month still showed that it is only mild, w ith an aortic valve area of 1.6 cm, and no significant change in the measured gradients.. He remains asymptomatic, denies chest pain, pressure or discomfort, even shoveling snow t his winter without any symptoms, and at this point, he still only requires yearly echocardio graphic surveillance, and a repeat study will be done at [facility] next September. He has a history of palpitations and PVCs, he is asymptomatic in this regard, and has been so for a number of years to the point where he barely remember to it. His blood pressure is well-controlled, despite his history of hypertension, and his previously told me that at times he has episodes of severe hypotension, with systolic blood pressures in the 50s, at which time he "totally crashes "and is unable to do anything but sleep, but has refused to go to the hospital for this. He was advised that he should do so under these circumstances, as this is a potential life-threatening emergency. Fortunately, he has had no episodes for quite some time. He will be scheduled for lumbar disc surgery with Dr. Durbin, and does not require any further operative cardiac testing or other evaluations. He has a low, acceptable risk for cardiovascular complications with the surgery and general anesthesia. Of course, he will need to be off warfarin for at least 5 days, and Lovenox br idging will be required, since he has a mechanical mitral valve. He told me that the [facility] take care of this. I will therefore see him back in 1 year for follow-up. ROS CONSTITUTIONAL: No recent significant weight change, denies recent fever, chills, night sw eats, significant fatigue NEUROLOGIC: No history of CVA, TIA, has a history of Migraines (previously fairly frequent , now about once every 2 months), no history of seizures, syncope. No numbness, tingling, p aresthesias, dizziness, lightheadedness. EYES: No amaurosis, diplopia, recent visual changes or glaucoma ENT: He has mild hearing loss, right > left, no tinnitus, epistaxis, dysphagia ENDOCRINE: No history of diabetes. No history of thyroid disorders or other endocrine prob lems. No excessive hunger, thirst. PULMONARY/SLEEP: No dyspnea, orthopnea, paroxysmal nocturnal dyspnea. No history of asthm a, emphysema. He had Pneumonia in the past. He has a history of obstructive sleep apnea, b ut was unable to tolerate CPAP on his titration study, and has restless leg syndrome. His w jae notes snoring, has not witnessed apnea, has daytime somnolence. Sleep is refreshing. CARDIOVASCULAR: Denies chest pain, pressure or discomfort. No history of CAD. No history of heart failure. He has had a history of frequent PVCs and palpitations. 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 Donald valve, has been on Coumadin since then. No history of rheumatic fever. He has a hi story of hypertension, hyperlipidemia. No edema, no claudication symptoms. No h/o an AAA. -- Echo (09/19/18): EF 55%, mild LVH, mild MAGDALENO, no obstruction, normal RV size, function, ma rked LAE, mild , KORTNEY 1.6 cm, peak/mean gradients 27.2/17.5 mmHg, mild AI, normal mechani mark MVR, borderline pulmonary hypertension -- Echo (11/29/17): EF 55-60%, normal RV size, function, mild-moderate LAE, moderate , AV A 1.1 cm, peak/mean gradient 28.2/14.7 mmHg, relatively rapid progression noted. Final Installer Inspector al [address] Donald MVR with normal function. -- Echo (03/16/17): EF 60-65%, normal RV size, function, mild , KORTNEY 1.7 cm, peak/mean gra dient 15.3/9.[address] Donald mechanical MVR, prosthetic MVA 2.7 cm, peak/mean grad ients 15.5/5.4 mmHg -- Echo (07/03/12 - [place]): EF 55-60%, grade 1 diastolic dysfunction, mild LAE, normal ly functioning mechanical mitral valve replacement, trace MR, mild TR -- Holter (02/27/05): Normal sinus rhythm, frequent PVCs, rare PACs -- Lipid panel (07/03/12): TC-186, LDL-129, HDL-37, TG-102 -- Mitral Valve Replacement (07/08/02): St. Donald model 31MECJ-502, s# [id number] -- Carotid U/S (03/29/11): 0-20% bilateral internal carotid artery stenoses -- Lipid panel (03/16/17-on atorvastatin 20 mg): TC-162, LDL-108, HDL-38, TG-79 GASTROINTESTINAL: No recent abdominal pain, nausea, vomiting or diarrhea. Denies PUD, mikey na, hematochezia, hepatitis. RENAL/: Stage III chronic kidney disease with Proteinuria. No dysuria, hematuria, has B PH, no significant nocturia, urinary urgency, hesitancy. HEMATOLOGY/ONCOLOGY: No h/o bleeding disorders, DVT, PE. He notes easy bruisability and increased bleeding on warfarin. No history of anemia, had a blood Transfusion with his MVR surgery. He has a history of Skin Cancer. MUSCULOSKELETAL: No myalgias, has Osteoarthritis with bilateral knee, low back and shoulde r arthralgias, lumbar spinal stenosis. No history of rheumatologic or autoimmune diseases. CUTANEOUS: No rashes, pruritus, lesions. PSYCHIATRIC: No history of depression, anxiety or other psychiatric problems. Past Medical History: Diagnosis Date Back pain Chronic bilateral low back pain with bilateral sciatica 09/04/2017 Endocarditis, valve unspecified, unspecified cause ENDOCARDITIS,MITRAL VALVE W/ENLARGED ANTERIOR LEAFLET VEG 03/30/2011 History of anticoagulant therapy History of hernia repair History of mitral valve replacement Hypercholesterolemia Hyperlipidemia 03/30/2011 Hypertension 03/30/2011 Insomnia 03/30/2011 Insomnia, unspecified Leukocytosis with neutrophilia Low back pain Migraine headache 03/30/2011 Migraine, unspecified, without mention of intractable migraine without mention of statu s migrainosus Nicotine dependence Obesity 03/30/2011 Obesity, unspecified Other and unspecified hyperlipidemia Other spondylosis with radiculopathy, lumbosacral region Palpitations Plantar wart Renal cysts, left Restless legs syndrome 03/30/2011 Restless legs syndrome (RLS) Shortness of breath Sleep apnea 03/30/2011 Spinal stenosis of lumbar region with radiculopathy 09/04/2017 Spinal stenosis, sacral and sacrococcygeal region Unspecified essential hypertension Unspecified sleep apnea Past Surgical History: Procedure Laterality Date APPENDECTOMY CATARACT REMOVAL 1997 & 1999 Bilateral COLONOSCOPY 2014 HERNIA REPAIR 11/2012 KNEE ARTHROSCOPY Left 09/09/2012 KNEE SURGERY Bilateral MITRAL VALVE REPLACEMENT 2003 TONSILLECTOMY TOTAL KNEE ARTHROPLASTY Left 03/2017 Family History Problem Relation Age of Onset Cancer Mother Hypertension Mother Other (see comment) Mother Joint replacement Heart failure Mother CHF Diabetes Father Heart disease Father Hypertension Father Stroke Father Diabetes Brother Asthma Brother Heart disease Brother leaky heart valve Prostate cancer Brother No known problems Brother No known problems Sister No known problems Child No known problems Child Social History Socioeconomic History Marital status: Spouse name: AI CASTANEDA Number of children: 2 Years of education: Not on file Highest education level: Not on file Social Needs Financial resource strain: Not on file Food insecurity - worry: Not on file Food insecurity - inability: Not on file Transportation needs - medical: Not on file Transportation needs - non-medical: Not on file Occupational History 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 Tobacco Use Smoking status: Former Smoker Packs/day: 0.06 Years: 12.00 Pack years: 0.72 Types: Cigars Start date: 2006 Last attempt to quit: 03/03/2018 Years since quittin.6 Smokeless tobacco: Current User Types: Snuff Substance and Sexual Activity Alcohol use: Yes Alcohol/week: 0.0 - 0.6 oz Frequency: Monthly or less Drinks per session: 1 or 2 Binge frequency: Never Comment: Four beers once per year (during [place]) Drug use: No Sexual activity: Yes Partners: Female control/protection: Post-menopausal Other Topics Concern Not on file Social History Narrative Exercise: rehab/ physical therapy, also walking when he can Caffeine: soda once in awhile Living situation: with Ai Allergies Allergen Reactions Penicillins Anaphylaxis Lisinopril Cough Pollen Extract Itching,Sensitivity Hay Fever Codeine Sulfate Headache Cold sweats. Intolerance No active intolerances/contraindications Current Outpatient Medications Medication Sig Dispense Refill Ascorbic Acid (VITAMIN C) 500 MG CAPS Take 500 mg by mouth Daily. atorvaSTATin (LIPITOR) 40 mg tablet Take 40 mg by mouth nightly. baclofen (LIORESAL) 20 mg tablet Take 20 mg by mouth 3 times daily. CALCIUM/MAGNESIUM/ZINC FORMULA PO Take 1,000 mg by mouth. ferrous sulfate 324 (65 Fe) MG EC tablet Take by mouth nightly. gabapentin (NEURONTIN) 300 mg capsule Take 600 mg by mouth 3 times daily. Sometimes olimpia es 2 tabs QID prn pain losartan (COZAAR) 100 MG tablet Take 100 mg by mouth Daily. pantoprazole (PROTONIX) 40 mg tablet Take 1 tablet by mouth 2 times daily (before meals ). 120 tablet 2 rOPINIRole (REQUIP) 4 mg tablet Take 4 mg by mouth nightly. spironolactone (ALDACTONE) 25 mg tablet Take 25 mg by mouth Daily. tamsulosin (FLOMAX) 0.4 mg CAPS Take 0.4 mg by mouth nightly. temazepam (RESTORIL) 30 MG capsule Take 30 mg by mouth nightly. tiZANidine (ZANAFLEX) 4 MG capsule Take 1 capsule by mouth nightly. 30 capsule 0 verapamil (CALAN SR) 180 mg SR tablet Take 180 mg by mouth nightly. warfarin (COUMADIN) 5 mg tablet Take 5 mg by mouth Daily. 2.5mg Sunday and Sunday. R emainder of days is 5mg No current facility-administered medications for this visit. Objective: BP 140/72 | Pulse 71 | Ht 1.778 m (5' 10") | Wt 94.9 kg (209 lb 4.8 oz) | SpO2 96% | B AR 30.03 kg/m PHYSICAL EXAM GENERAL: Well developed, well nourished, in no distress. Appears approximately stated age . HEENT: Normocephalic, atraumatic. EYES: Well-healed iridectomies. PERRL, sclerae anicteric, no xanthelsasmas MOUTH: Oral mucosae moist, dentition adequate, no lesions noted NECK: No JVD, lymphadenopathy, thyromegaly, bruits. Carotid pulses are 2+ bilaterally LUNGS: Clear bilaterally, with no rales, rhonchi or wheezing noted, respirations unlabored HEART: Well-healed sternotomy incision. Nondisplaced PMI, regular rate and rhythm, S1, S2 are prosthetic clicks, audible without a stethoscope, with a one-2/6 holosystolic murmur at the apex. No rubs or gallops noted. ABDOMEN: Soft, nontender, no organomegaly, masses or bruits. Bowel sounds are normal in a ll 4 quadrants. The abdominal aortic pulsation is not palpable. EXTREMITIES: No edema. Radial pulses 2+ bilaterally. Femoral pulses are 2+ bilaterally wi thout bruits. DP and PT pulses are 2+ bilaterally. SKIN: Warm and dry, capillary refill is normal, no lesions. NEUROLOGIC: Awake, alert and oriented x 3. No focal motor deficits. PSYCHIATRIC: Appropriate, affect appears normal EKG: Normal sinus rhythm, rate 64, incomplete LBBB, no significant change compared to 2017 Assessment: Lupillo was seen today for follow-up. Diagnoses and all orders for this visit: Hypertension, unspecified type - ECG 12 lead History of mitral valve replacement with mechanical valve - ECHO Complete; Future Aortic stenosis, mild Essential hypertension Hypotension, unspecified hypotension type Mixed hyperlipidemia Aortic valve stenosis, mild - ECHO Complete; Future Preoperative cardiovascular examination Degenerative lumbar disc Plan: Follow-up in 1 year, after his next echocardiogram. documented in this en counter Plan of Treatment +--------+---------+ + + + | Date | Type | Specialty | Care Team | Description | +--------+---------+ + + + | 02/19/ | Office | Nephrology | Ismael Young MD | | | 2019 | Visit | | [address] [facility] | | | | | | [address] [facility] | | | | | | [address] | | | | | | | | +--------+---------+ + + + + + +--------+ + + | Name | Type | Priori | Associated Diagnoses | Order Schedule | | | | ty | | | + + +--------+ + + | ECHO Complete | Echocardiog | Routin | History of mitral | Expected: | | | sam | e | valve replacement | 09/08/2019, Expires: | | | | | with mechanical | 10/11/2019 | | | | | valve Aortic valve | | | | | | stenosis, mild | | + + +--------+ + + documented as of this encounter Procedures + +--------+ + + + | Procedure Name | Priori | Date/Time | Associated Diagnosis | Comments | | | ty | | | | + +--------+ + + + | ECG 12 LEAD | Routin | 10/10/2018 | Hypertension, | Results for this | | | e | 11:23 AM | unspecified type | procedure are in the | | | | PDT | | results section. | + +--------+ + + + documented in this encounter Results ECG 12 lead (10/10/2018 11:23 AM PDT) + + + + + + | Component | Value | Ref Range | Performed | Pathologist | | | | | At | Signature | + + + + + + | VENTRICULAR | 64 | BPM | [facility] | | | RATE EKG | | | | | + + + + + + | ATRIAL RATE | 64 | BPM | [facility] | | + + + + + + | P-R | 158 | ms | [facility] | | | INTERVAL | | | | | + + + + + + | QRS | 116 | ms | [facility] | | | DURATION | | | | | + + + + + + | Q-T | 456 | ms | [facility] | | | INTERVAL | | | | | + + + + + + | Q-T | 470 | ms | [facility] | | | INTERVAL | | | | | | (CORRECTED) | | | | | + + + + + + | P WAVE AXIS | 13 | degrees | [facility] | | + + + + + + | QRS AXIS | 8 | degrees | [facility] | | + + + + + + | T AXIS | 39 | degrees | [facility] | | + + + + + + | INTERPRETAT | Normal sinus | | [facility] | | | ION TEXT | rhythmIncomplete left | | | | | | bundle branch | | | | | | blockBorderline ECGWhen | | | | | | compared with ECG of | | | | | | 19-APR-2017 | | | | | | 12:43,Previous ECG has | | | | | | undetermined rhythm, | | | | | | needs reviewIncomplete | | | | | | left bundle branch block | | | | | | is now | | | | | | PresentNonspecific T | | | | | | wave abnormality has | | | | | | replaced inverted T | | | | | | waves in Inferior | | | | | | leadsPlease refer to | | | | | | Providers office visit | | | | | | note for Providers | | | | | | Interpretation.Confirmed | | | | | | by [facility] Read Only, | | | | | | [facility] [place] ([id number]), | | | | | | food expeditor Zana Nguyen | | | | | | ([id number]) on 10/10/2018 | | | | | | 12:58:31 PM | | | | + + + + + + + + | Specimen | + + | | + + + + + | Narrative | Performed At | + + + | | | + + + + +---------+ + + | Performing | Address | City/State/Zipcode | Phone Number | | Organization | | | | + +---------+ + + | [facility] | | | | + +---------+ + + documented in this encounter Visit Diagnoses + + | Diagnosis | + + | Hypertension, unspecified type - Primary | + + | History of mitral valve replacement with mechanical valve Heart valve replaced by | | other means | + + | Aortic stenosis, mild Aortic valve disorders | + + | Essential hypertension Unspecified essential hypertension | + + | Hypotension, unspecified hypotension type | + + | Mixed hyperlipidemia | + + | Aortic valve stenosis, mild Aortic valve disorders | + + | Preoperative cardiovascular examination Pre-operative cardiovascular examination | + + | Degenerative lumbar disc Degeneration of lumbar or lumbosacral intervertebral disc | + + documented in this encounter
--- OUTSIDE RECORDS SUMMARY | ~2019-02-03 | XMS | Encounter Summary ---
Demographics + + + | Address | [address] | | | [place] [address] | + + + | Home Phone | | + + + | Preferred Language | Unknown | + + + | Marital Status | | + + + | Cheondoism Affiliation | 1041 | + + + | Race | Unknown | + + + | Ethnic Group | Unknown | + + + Author + + + | Author | [facility] | | | and [place] | + + + | Organization | [facility] | | | and [...] [place] | | | | | [address] | | + + + + + Care Team Providers + +------+ + | Care Bow Rehairer Name | Role | Phone | + +------+ + | Bartolome Frederick DO | PCP | | + +------+ + Encounter Details +--------+ + + + + | Date | Type | Department | Care Team | Description | +--------+ + + + + | 08/16/ | Orders Only | [facility] | Aly Shukla, | | | 2017 | | NEPHROLOGY [place] | TELECOMMUNICATIONS TECHNICIAN [address] | | | | [address] [place] | [address] | | | | | [address] [place], [place] | [facility] [place] | | | | | [address] | [address] | | | | | [phone] | [phone] | | | | | | | [...] 2020 | Visit | | [address] [facility] | | | | | | [address] [place], [place] | | | | | | [address] | | | | | | | [...] | | | LAB | | | [place] | | | | | + + [...]
--- OUTSIDE RECORDS SUMMARY | ~2019-02-03 | XMS | Encounter Summary ---
Demographics + + + | Address | [address] | | | [place] [address] | + + + | Home Phone | | + + + | Preferred Language | Unknown | + + + | Marital Status | | + + + | Yazidi Affiliation | CAT | + + + [...] | | + + +---------+ + | Tmamie Leblanc | ECON | Unknown | | + + +---------+ + Care Team Providers + +------+ + | Care X Ray Tech Name | Role | Phone | + +------+ + | Bartolome Frederick DO | PCP | | + +------+ + Encounter Details +--------+ + + + + | Date | Type | Department | Care Team | Description | +--------+ + + + + | 10/24/ | Anesthesia | [facility] | Giancarlo Solis, | | | 2019 | Event | Preoperative | MD [address] | | | | | Assessment Clinic | [address] | | | | | [address] | [place] [address] | | | | | [address] | [phone] | | | | | [place], [place] | | | | | | [address] | | | | | | [phone] | | | +--------+ + + + + Anesthesia Record + + [...] [address] | | | | | | [place] [address] | | | | | | [phone] | | | | | | | | +--------+---------+ + + + documented as of this encounter Visit Diagnoses Not on filedocumented in this encounter"
--- OUTSIDE RECORDS SUMMARY | ~2019-02-03 | XMS | Encounter Summary ---
Demographics + + + | Address | [address] | | | [place] [address] | + + + | Home Phone | | + + + | Preferred Language | Unknown | + + + | Marital Status | | + + + | Hindu Affiliation | 1041 | + + + | Race | Unknown | + + + | Ethnic Group | Unknown | + + + Author + + + | Author | [facility] | | | and [place] | + + + | Organization | [facility] | | [...] [place] | | | | | [address] | | + + + + + Care Team Providers + +------+ + | Care Heel Packer Name | Role | Phone | + +------+ + | Bartolome Frederick DO | PCP | | + +------+ + Reason for Visit + + + | Reason | Comments | + + + | Anticoagulation | | + + + Encounter Details +--------+ + + + + | Date | Type | Department | Care Team | Description | +--------+ + + + + | 07/05/ | Telephone | [facility] | Tasha Manrique M, CC | Anticoagulation | | 2019 | | [facility] | HYDRAULIC ASSEMBLER | | | | | [facility] [address] | | | | | | [address] [facility], | | | | | | [place] [address] | | | | | | [phone] | | | +--------+ + + + [...] | Shots of liquor 0-1 | | Wall) | | | Standard drinks or | [...] 2020 | Visit | | [address] [facility] | | | | | | [address] [place] | | | | | | [address] | | | | | | | | +--------+---------+ + + + documented as of this encounter Visit Diagnoses Not on filedocumented in this encounter"
--- OUTSIDE RECORDS SUMMARY | ~2019-02-03 | XMS | Encounter Summary ---
Demographics + + + | Address | [address] | | | [place] [address] | + + + | Home Phone | | + + + | Preferred Language | Unknown | + + + | Marital Status | | + + + | Anglican Affiliation | 1041 | + + + | Race | Unknown | + + + | Ethnic Group | Unknown | + + + Author + + + | Author | [facility] | | | and [place] | + + + | Organization | [facility] | | | and [...] [place] | | | | | [address] | | + + + + + Care Team Providers + +------+ + | Care Act Tutor Name | Role | Phone | + +------+ + | Bartolome Frederick DO | PCP | | + +------+ + Encounter Details +--------+ + + + + | Date | Type | Department | Care Team | Description | +--------+ + + + + | 09/20/ | Orders Only | [facility] | Aly Shukla, | Chronic kidney | | 2019 | | NEPRHOLOGY [place] | SERVICES [facility]OST [address] | disease, stage III | | | | [address] | [address] | (moderate) (HCC); | | | | [address] [place], [place] | [facility] | Essential (primary) | | | | [address] | [address] | hypertension; | | | | [phone] | [phone] | Proteinuria | | | | | | [...] | Shots of liquor 0-1 | | [place]) | | | Standard drinks or | [...] 2019 | Visit | | [address] [facility] | | | | | | [address] [place], [place] | | | | | | [address] | | | | | | | | +--------+---------+ + + + + +------+--------+ + + | Name | Type | Priori | Associated Diagnoses | Order Schedule | | | | ty | | | + +------+--------+ + + | Renal Function Panel | Lab | Routin | Chronic kidney | Expected: | | | | e | disease, stage III | 09/12/2018, Expires: | | | | | (moderate) (HCC) | 03/15/2019 | | | | | Essential (primary) | | | | | | hypertension | | | | | | Proteinuria | | + +------+--------+ + + | CBC with | Lab | Routin | Chronic kidney | Expected: | | Differential | | e | disease, stage III | 09/12/2018, Expires: | | | | | (moderate) ([facility]) | 03/15/2019 | | | | | Essential (primary) | | | | | | hypertension | | | | | | Proteinuria | | + +------+--------+ + + | Magnesium | Lab | Routin | Chronic kidney | Expected: | | | | e | disease, stage III | 09/12/2018, Expires: | | | | | (moderate) ([facility]) | 03/15/2019 | | | | | Essential (primary) | | | | | | hypertension | | | | | | Proteinuria | | + +------+--------+ + + | Protein/Creatinine | Lab | Routin | Chronic kidney | Expected: | | Ratio, Urine | | e | disease, stage III | 09/12/2018, Expires: | | | | | (moderate) ([facility]) | 03/15/2019 | | | | | Essential (primary) | | | | | | hypertension | | | | | | Proteinuria | | + +------+--------+ + + documented as of this encounter Visit Diagnoses + + | Diagnosis | + + | Chronic kidney disease, stage III (moderate) (HCC) Chronic kidney disease, Stage III | | (moderate) | + + | Essential (primary) hypertension Unspecified essential hypertension | + + | Proteinuria | + + documented in this encounter"
--- OUTSIDE RECORDS SUMMARY | ~2019-02-03 | XMS | Encounter Summary ---
Demographics + + + | Address | [address] | | | [place] [address] | + + + | Home Phone | | + + + | Preferred Language | Unknown | + + + | Marital Status | | + + + | Orthodoxy Affiliation | CAT | + + + | Race | White | + + + | Ethnic Group | Not or | + + + Author + + + | Author | [facility] | + + + | Organization | [facility] | + + + | Address [...] Team Providers + +------+ + | Care Tin Pourer Name | Role | Phone | + +------+ + PCP | Unavailable | + +------+ + Encounter Details +--------+ + + + + | Date | Type | Department | Care Team | Description | +--------+ + + + + | 07/08/ | Procedure - | UNKNOWN DEPARTMENT | Other, Faculty | ECHO (CHRISTINE or TTE) | | 2002 | | [address] [facility] | [phone] | | | | Transcribed | [address] | | | | | | [place], [place] | | | | | | [address] | | | +--------+ + + + [...] this encounter Progress Notes Other, Faculty - 07/08/2002 12:00 AM PDTAssociated Order(s): TRANSTHORACIC ECHOCARDIOGRAM, ADULT [facility] DATE: 07/08/02 [place], [place] MED REC NO: [id number] NAME: BASILIA CASTANEDA Jorge ECHOCARDIOGRAPHY REPORT BIRTHDATE: [birth year] INDICATION FOR STUDY: [place] CHRISTINE MVR UNIT: [place] STUDY NO: [id number] REF. MD: ELBERT EDWARDS MD BP: TECH: KL INTRAOPERATIVE TRANSESOPHAGEAL ECHO INTERPRETATION PRE-OPERATIVE 1. CHAMBERS: NORMAL LEFT VENTRICULAR SIZE. EJECTION FRACTION IS MILDLY REDUCED. MILD DIFFUSE HYPOKINESIS. RIGHT VENTRICULAR SIZE AND SYSTOLIC FUNCTION ARE PROBABLY NORMAL. MILD LEFT ATRIAL ENLARGEMENT. NORMAL RIGHT ATRIAL SIZE. 2. VALVES: NORMAL AORTIC VALVE. THERE IS A 1 X 1CM VEGETATION ARISING FROM THE ATRIAL SURFACE OF THE ANTERIOR MITRAL LEAFLET. THE VALVE LEAFLET ITSELF APPEARS STRUCTURALLY NORMAL, ALTHOUGH THE POSTERIOR LEAFLET IS SOMEWHAT ELONGATE (BUT NOT ABNORMALLY THICK OR ECHODENSE). TRICUSPID AND PULMONIC VALVES ARE NOT WELL SEEN. 3. DOPPLER/COLOR FLOW: THERE IS MILD ECCENTRIC MITRAL REGURGITATION, DIRECTED POSTERIORLY. POST-OPERATIVE 1. A BILEAFLET MITRAL MECHANICAL PROSTHESIS IS SEEN, FUNCTIONING NORMALLY. THE AORTIC VALVE IS NORMAL. LEFT VENTRICULAR AND RIGHT VENTRICULAR SIZE AND FUNCTION ARE NOT WELL SEEN. 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 Warren GALLAGHER> documented in this encou nter Plan of Treatment +--------+---------+ + + + | Date | Type | Specialty | Care Team | Description | +--------+---------+ + + + | 04/30/ | Office | Neurological Surgery | Michael Durbin MD | | | 2020 | Visit | | [address] | | | | | | [place] [address] | | | | | | [place] [address] | | | | | | [phone] | | | | | | | | +--------+---------+ + + + documented as of this encounter Procedures + +--------+ + + + | Procedure Name | Priori | Date/Time | Associated Diagnosis | Comments | | | ty | | | | + +--------+ + + + | TRANSTHORACIC | | 07/08/2002 | | Results for this | | ECHOCARDIOGRAM, | | 12:00 AM | | procedure are in the | | ADULT | | PDT | | results section. | + +--------+ + + + documented in this encounter Results TRANSTHORACIC ECHOCARDIOGRAM, ADULT (07/08/2002 12:00 AM PDT) + + | Procedure Note | + + | Other, Faculty - 07/08/2002 12:00 AM [facility] DATE: | | 07/08/02 [place], [place] MED REC NO: [id number] NAME: BASILIA CASTANEDA | | ECHOCARDIOGRAPHY REPORT BIRTHDATE: 52 INDICATION FOR STUDY: [place] [facility]STINE MVR UNIT: [place] | | STUDY NO: [id number] REF. MD: ELBERT EDWARDS MD BP: TECH: MICHAEL | | | | INTRAOPERATIVE TRANSESOPHAGEAL ECHO INTERPRETATION | | | | PRE-OPERATIVE 1. CHAMBERS: NORMAL LEFT VENTRICULAR SIZE. EJECTION FRACTION IS MILDLY | | REDUCED. MILD DIFFUSE HYPOKINESIS. RIGHT VENTRICULAR SIZE AND SYSTOLIC FUNCTION ARE | | PROBABLY NORMAL. MILD LEFT ATRIAL ENLARGEMENT. NORMAL RIGHT ATRIAL SIZE. 2. VALVES: | | NORMAL AORTIC VALVE. THERE IS A 1 X 1CM VEGETATION ARISING FROM THE ATRIAL SURFACE OF | | THE ANTERIOR MITRAL LEAFLET. THE VALVE LEAFLET ITSELF APPEARS STRUCTURALLY NORMAL, | | ALTHOUGH THE POSTERIOR LEAFLET IS SOMEWHAT ELONGATE (BUT NOT ABNORMALLY THICK OR | | ECHODENSE). TRICUSPID AND PULMONIC VALVES ARE NOT WELL SEEN. 3. DOPPLER/COLOR FLOW: | | THERE IS MILD ECCENTRIC MITRAL REGURGITATION, DIRECTED POSTERIORLY. POST-OPERATIVE 1. | | A BILEAFLET MITRAL MECHANICAL PROSTHESIS IS SEEN, FUNCTIONING NORMALLY. THE AORTIC | | VALVE IS NORMAL. LEFT VENTRICULAR AND RIGHT VENTRICULAR SIZE AND FUNCTION ARE NOT WELL | | SEEN. 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 CORAH | | Aminata OROZCOB> | | MILDLY REDUCED. MILD DIFFUSE HYPOKINESIS. RIGHT VENTRICULAR | | SIZE AND SYSTOLIC FUNCTION ARE PROBABLY NORMAL. MILD LEFT | | ATRIAL ENLARGEMENT. NORMAL RIGHT ATRIAL SIZE. | | | | 2. VALVES: NORMAL AORTIC VALVE. THERE IS A 1 X 1CM VEGETATION | | ARISING FROM THE ATRIAL SURFACE OF THE ANTERIOR MITRAL LEAFLET. | | THE VALVE LEAFLET ITSELF APPEARS STRUCTURALLY NORMAL, ALTHOUGH | | THE POSTERIOR LEAFLET IS SOMEWHAT ELONGATE (BUT NOT ABNORMALLY | | THICK OR ECHODENSE). TRICUSPID AND PULMONIC VALVES ARE NOT WELL | | SEEN. | | | | 3. DOPPLER/COLOR FLOW: THERE IS MILD ECCENTRIC MITRAL | | REGURGITATION, DIRECTED POSTERIORLY. | | | | | | POST-OPERATIVE | | 1. A BILEAFLET MITRAL MECHANICAL PROSTHESIS IS SEEN, FUNCTIONING | | NORMALLY. THE AORTIC VALVE IS NORMAL. LEFT VENTRICULAR AND | | RIGHT VENTRICULAR SIZE AND FUNCTION ARE NOT WELL SEEN. AN | | ATRIAL SEPTAL ANEURYSM IS INCIDENTALLY NOTED. | | | | | | | | Aminata GALLAGHERB> | | | | | | | + + documented in this encounter Visit Diagnoses Not on filedocumented in this encounter"
--- OUTSIDE RECORDS SUMMARY | ~2019-02-03 | XMS | Encounter Summary ---
Demographics + + + | Address | [address] | | | [place] [address] | + + + | Home Phone | | + + + | Preferred Language | Unknown | + + + | Marital Status | | + + + | Denominational Affiliation | 1041 | + + + | Race | Unknown | + + + | Ethnic Group | Unknown | + + + Author + + + | Author | [facility] | | | and [place] | + + + | Organization | [facility] | | | [...] [place] | | | | | [address] | | + + + + + Care Team Providers + +------+ + | Care Refrigeration Specialist Name | Role | Phone | + +------+ + | Bartolome Frederick DO | PCP | | + +------+ + Encounter Details +--------+ + + + + | Date | Type | Department | Care Team | Description | +--------+ + + + + | 11/08/ | Abstract | [facility] | Bartolome Frederick | | | 2017 | | [facility] | E, DO [address] | | | | | [facility] [address] | [place], [place] | | | | | [address] [place], | [address] | | | | | [place] [address] | [phone] | | | | | [phone] | | | +--------+ + + + [...] | | Former User | | | 2002 | + +-------+---+--------+ + + | Comments: [...] 2020 | Visit | | [address] [place] | | | | | | [address] [place], [place] | | | | | | [address] | | | | | | | | +--------+---------+ + + + documented as of this encounter Procedures + +--------+ + + + | Procedure Name | Priori | Date/Time | Associated Diagnosis | Comments | | | ty | | | | + +--------+ + + + | EXTERNAL: | Routin | 05/27/2014 | | Results for this | | COLONOSCOPY | e | | | procedure are in the | | | | | | results section. | + +--------+ + + + documented in this encounter Results EXTERNAL: COLONOSCOPY (05/27/2014) + + + + + + | Component | Value | Ref Range | Performed | Pathologist | | | | | At | Signature | + + + + + + | Colonoscopy | Result not | | | | | | found.Comment: Per [facility] | | | | | Impression, | medical record | | | | | External | | | | | + + + + + + documented in this encounter Visit Diagnoses Not on filedocumented in this encounter
--- OUTSIDE RECORDS SUMMARY | ~2019-02-03 | XMS | Encounter Summary ---
Demographics + + + | Address | [address] | | | [place] [address] | + + + | Home Phone | | + + + | Preferred Language | Unknown | + + + | Marital Status | | + + + | Roman Catholic Affiliation | 1041 | + + + [...] | [address] | | | | | [place] | | | | | [address] | | + + + + + Care Team Providers + +------+ + | Care School Psychological Examiner Name | Role | Phone | + +------+ + | Khai Ackerman DO | PCP | Unavailable | + +------+ + Reason for Referral Diagnostic/Screening (Routine) +--------+--------+ + + + + | Status | Reason | Specialty | Diagnoses / | Referred By | Referred To | | | | | Procedures | Contact | Contact | +--------+--------+ + + + + | Closed | | Radiology | Diagnoses | | [facility] | | | | | | [place], | [address] | | | | | Endocarditis | [place] | [place], | | | | | , valve | [address] | [place] | | | | | Mitral valve | [place] | [address] | | | | | replaced | [place], | Phone: | | | | | Procedures | [place] | [phone] | | | | | ECHO | [address] | Fax: | | | | | Complete [place] | Phone: | [phone] | | | | | ECHO HEART | [phone] | | | | | | [place] | Fax: | | | | | | [address] | [phone] | | | | | | DOPPLER [place] | | | | | | | ECHO HEART | | | | | | | [place] | | | | | | | MPLETE, W/O | | | | | | | DOPPLER | | | | | | | 12/08> TBS?> | | | | | | | PEND | | | | | | | CARDIOLOGY | | | | | | | FRONT DEST | | | | | | | RESPONSE | | | +--------+--------+ + + + + Encounter Details +--------+ + + + + | Date | Type | Department | Care Team | Description | +--------+ + + + + | 01/26/ | Orders Only | [facility] [place] | [place], | ENDOCARDITIS,MITRAL | | 2013 | | CARDIOLOGY [address] | [place], MAP EDITOR [address] | VALVE W/ENLARGED | | | | [place], | [place], | ANTERIOR LEAFLET VEG | | | | [place] [address] | [place] [address] | (Primary Dx); | | | | [phone] | [phone] | Mitral valve | | | | | | replaced | +--------+ + + + + Social [...] 2020 | Visit | | [address] [facility] | | | | | | [address] [place], [place] | | | | | | [address] | | | | | | | | +--------+---------+ + + + + + +--------+ + + | Name | Type | Priori | Associated Diagnoses | Order Schedule | | | | ty | | | + + +--------+ + + | ECHO Complete | Echocardiog | Routin | | Expected: | | | sam | e | ENDOCARDITIS,MITRAL | 04/06/2014, Expires: | | | | | VALVE W/ENLARGED | 01/26/2015 | | | | | ANTERIOR LEAFLET VEG | | | | | | Mitral valve | | | | | | replaced | | + + +--------+ + + documented as of this encounter Visit Diagnoses + + | Diagnosis | + + | ENDOCARDITIS,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
--- OUTSIDE RECORDS SUMMARY | ~2019-02-03 | XMS | Encounter Summary ---
Demographics + + + | Address | [address] | | | [place] [address] | + + + | Home Phone | | + + + | Preferred Language | Unknown | + + + | Marital Status | | + + + | Congregational Affiliation | 1041 | + + + | Race | Unknown | + + + | Ethnic Group | Unknown | + + + Author + + + | Author | [facility] | | | and [place] | + + + | Organization | [facility] | | | [...] [address] | | | | | [address] | | + + + + + Care Team Providers + +------+ + | Care Laborer Vineyard Name | Role | Phone | + +------+ + | Bartolome Frederick DO | PCP | | + +------+ + Reason for Visit +--------+ + | Reason | Comments | +--------+ + | Other | lab result | +--------+ + Encounter Details +--------+ + + + + | Date | Type | Department | Care Team | Description | +--------+ + + + + | 10/31/ | Telephone | [facility] | Racheal Ricci | Other (lab result) | | 2019 | | NEPRHOLOGY [place] | , [facility] | | | | | [address] | Director Of Radiology | | | | | [address] [place], [place] | | | | | | [address] | | | | | | [phone] | | | +--------+ + + + [...] | Shots of liquor 0-1 | | [place]) | | | Standard drinks or | [...] 2020 | Visit | | [address] [facility] | | | | | | [address] [place] | | | | | | [address] | | | | | | | | +--------+---------+ + + + documented as of this encounter Visit Diagnoses Not on filedocumented in this encounter"
--- OUTSIDE RECORDS SUMMARY | ~2019-02-03 | XMS | Encounter Summary ---
Demographics + + + | Address | [address] | | | [place] [address] | + + + | Home Phone | | + + + | Preferred Language | Unknown | + + + | Marital Status | | + + + | Worship Affiliation | CAT | + + + | Race | White | + + + | Ethnic Group | Not or | + + + Author + + + | Author | [facility] | + + + | Organization | [facility] | + + + | Address [...] Team Providers + +------+ + | Care Software Applications Designer Name | Role | Phone | + +------+ + | Bartolome Frederick DO | PCP | | + +------+ + Reason for Referral Physical Therapy (Routine) +--------+--------+ + + + + | Status | Reason | Specialty | Diagnoses / | Referred By | Referred To | | | | | Procedures | Contact | Contact | +--------+--------+ + + + + | Closed | | Physical | Diagnoses | Kristine, | | | | | Therapy | Bekah | Julian | | | | | | syndrome of | Adonis Edwards, | | | | | | both sides | MD [address] | | | | | | Sagittal | [address] | | | | | | plane | [place], [place] | | | | | | imbalance | [address] | | | | | | Acquired | Phone: | | | | | | flat back | [phone] | | | | | | syndrome | Fax: | | | | | | Spondylosis | [phone] | | | | | | without | | | | | | | myelopathy | | | | | | | or | | | | | | | radiculopath | | | | | | | y, lumbar | | | | | | | region | | | | | | | Deconditione | | | | | | | d low back | | | | | | | Procedures | | | | | | | PHYSICAL | | | | | | | THERAPY | | | | | | | REFERRAL | | | +--------+--------+ + + + + Reason for Visit + + + | Reason | Comments | + + + | New Patient Visit | | + + + Intake Referral (Routine) + +--------+ + + + + | Status | Reason | Specialty | Diagnoses / | Referred By | Referred To | | | | | Procedures | Contact | Contact | + +--------+ + + + + | Pending | | Spine | Diagnoses | Otoniel, | Kristine, | | Review | | | Spinal | DO Bartolome | Julian Lamb | | | | | stenosis, | [address] | [address] | | | | | lumbar | [place], | [address] | | | | | region | [place] | [place], [place] | | | | | without | [address] | [address] | | | | | neurogenic | Phone: | Phone: | | | | | claudication | [phone] | [phone] | | | | | | Fax: | Fax: | | | | | Radiculopath | [phone] | [phone] | | | | | y, lumbar | | | | | | | region | | | + +--------+ + + + + Encounter Details +--------+---------+ + + + | Date | Type | Department | Care Team | Description | +--------+---------+ + + + | 05/21/ | Office | [facility] Orthopaedics | Julian Carmona | Piriformis syndrome | | 2019 | Visit | & Rehabilitation | Adonis Edwards MD [address] | of both sides | | | | [address] | [address] | (Primary Dx); | | | | [address] [place], [place] | [place], [place] | Sagittal plane | | | | [address] | [address] | imbalance; Acquired | | | | [phone] | [phone] | flat back syndrome; | | | | | | Spondylosis without | | | | | | myelopathy or | | | | | | radiculopathy, | | | | | | lumbar region; | | | | | | Deconditioned low | | | | | | back | +--------+---------+ + + + Social History + +--------+ +--------+ + | Tobacco Use | Types | Packs/Day | Years | Date | | | | | Used | | + +--------+ +--------+ + | Former Smoker | Cigars | | | Quit: 03/03/2018 | + +--------+ +--------+ [...] + + + | Blood Pressure | - | - | | + + + + + | Pulse | - | - | | + + + + + | Temperature | - | - | | + + + + + | Respiratory Rate | - | - | | + + + + + | Oxygen Saturation | - | - | | + + + + + | Inhaled Oxygen | - | - | | | Concentration | | | | + + + + + | Weight | 87.1 kg (192 lb) | 05/21/2018 12:20 PM | | | | | PDT | | + + + + + | Height | 177.8 cm (5' 10") | 05/21/2018 12:20 PM | | | | | PDT | | + + + + + | Body Mass Index | 27.55 | 05/21/2018 12:20 PM | | | | | PDT | | + + + + + documented in this encounter Patient Instructions Patient Instructions Julian Carmona MD - 05/21/2018 12:50 PM PDT1. Consult to e xternal PT. Cane, hiking poles, walking stick, scooter, golf cart as needed for prolonged am bulation. 2. Return to spine clinic after 2- 3 months of PT or sooner as needed. If not improving, jose antonio mayen consider pain center consult for possible diagnostic/therapeutic piriformis injections. 3. Pain management and long-term follow-up c/o PCP. documented in this encounter Progress Notes Julian Carmona MD - 05/21/2018 12:50 PM PDTFormatting of this note might be dif ferent from the original. Referral Source: Bartolome Frederick DO CC: Low back, buttock and thigh pain HPI: Lupillo De La Paz is a 68 y.o. male. He presents with a >5 year history of remittent low back, buttock and thigh pain, described as aching to sharp in character and 3 up to 5/10, 10/10 1- 2 times a week in intensity. Th e symptoms are not worse on either side and radiates down posterolateral buttocks into ante rolateral thighs just above the knee caps The pain is worse with sitting more than 1 hour, standing more than 1 hour, walking more than 0.25 mile in 7-10 minutes and better with res t, stretching, sitting or lying down in recliner . He has no difficulty with gait. There is associated remittent tingling and numbness over r ight big toe. There is no kp weakness or clumsiness. No loss of bowel or bladder control. Past treatment includes massage with temporary to poor result. Current pain medications include gabapentin 1800 mg daily. There is no history of depression, anxiety; no other psychiatric diagnosis. Prior surgery to the spine includes none. There is no night pain, fever, chills nor recent unexplained weight loss. PMH: includes AVR on chronic coumadin, hypertension. Denies diabetes, chronic heart or lung disease, history of cancer. Please see the intake form which I have reviewed for full detai ls. PSH: s/p left knee replacment. Please see the intake form which I have reviewed for full de tails. Medications: No current outpatient prescriptions on file. Allergies: Allergies Allergen Reactions Penicillins Anaphylaxis Stopped breathing Codeine Nausea Social Hx: Worked for [employer]. Currently retired. Weekly physical activity regimen: walks, oth erwise sedentary. Tobacco history is chews a can every 2 weeks, quit smoking 02/2018. Alcohol history is none . Family Hx: I reviewed and noncontributory. ROS: Please see the intake form which I have reviewed for full details. Physical Exam: General: The patient is a well-formed, well nourished individual in no acute distress who appears of stated age. Affect and mood are normal. Patient is normocephalic. Peripheral p ulses are normal. Breathing is normal. Abdomen is soft, non-tender. Skin is normal color, temperature. No significant lymphedema. Station and gait are forward leaning but otherwis e normal. Able to walk on heels and toes and tandem walk with some difficulty. Vital Signs: Ht 1.778 m (5' 10") | Wt 87.1 kg (192 lb) | BMI 27.55 kg/m | BSA 2.07 m Musculoskeletal: The spine is balanced in coronal plane and forward-leaning on sagittal pl ane. Examination of the lumbar spine demonstrates no skin changes or areas of induration. Th ere are no masses nor spinal surgical incision. There is flattened lumbar lordosis with exag gerated thoracic kyphosis and compensatory increased cervical lordosis and pelvic retroversi on to maitain horizontal forward gaze and somewhat upright posture. Direct tenderness to pa raspinal areas at bilateral deep buttock (piriformis) areas. Flexibility is limited: 60 fle xion, -10 extension, 20 lateral bending, and 20 axial rotation of the lumbar spine. Hip and knee ROM are painful over both buttocks on both hip ROM. Neurologic: Muscle strength is 5/5 in all motor groups of the lower extremities. Deep tend on reflexes are 2/4 at the biceps, triceps and wrist extensors, as well as over both knees a nd both ankles. There is no Hoffmans sign. There is n difficulty with rapid alternating mov ements in upper extremities. Toes are downgoing. There is no ankle clonus. Sensation is cecy ssly intact to light touch throughout except decreased sensation. Straight leg raising is ne gative. Radiographs independently reviewed: MRI of LS spine from outside radiology 07/03/17 show multilevel degenerative zuri nges with disk dessication & height loss, posterolateral disk bulging, vertebral endplate os teophyte formation worst at L4-5 > L1-2 > L2-4 > L5-S1; florid facet arthrosis & hypertrophy worst at L4-5 > L5-S1 > L1-4; no other significant central spinal, lateral recess or forami nal stenosis . 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 We discussed the role of activity and lif estyle modification, pain relief modalities, proper hip & back mechanics, PT and regular con ditioning exercises, judicious short-term use of pain-relievers and anti-inflammatories, spi nal injections and surgery in relation to low back, buttock and thigh pain. Lupillo 's condition is chronic, complex, multifactorial and would benefit from a multidisci plinary approach. Although spinal realignment surgery may possibly improve some of his curre nt symptoms, it would likely be large in magnitude and inherently high-risk. I don't believe spinal surgery is urgently indicated at the current time. He would like to exhaust and maxi chichi non-surgical treatment options before considering spinal surgery. I believe this is khalif sonable. 1. Consult to external PT. Cane, hiking poles, walking stick, scooter, golf cart as needed for prolonged ambulation. 2. Return to spine clinic after 2- 3 months of PT or sooner as needed. If not improving, jose antonio mayen consider pain center consult for possible diagnostic/therapeutic piriformis injections. 3. Pain management and long-term follow-up c/o PCP. Please feel free to contact us should you or Lupillo have any further spine questions or con cerns. I spent 59 minutes with the patient. Greater than 50% of the time was spent counseling the patient regarding chronic low back, buttock and thigh pain with radicular features, myofasc ial deconditioning vs spondylotic (facet arthropathy) etiologies; bilateral piriformis syndr ome; sagittal spinal imbalance due to degenerative lumbar flat back and thoracic hyperkyphos is with pelvic retroversion. documented in this encounter Plan of Treatment +--------+---------+ + + + | Date | Type | Specialty | Care Team | Description | +--------+---------+ + + + | 04/30/ | Office | Neurological Surgery | Michael Durbin MD | | | 2019 | Visit | | [address] | | | | | | [address] | | | | | | [place] [address] | | | | | | [phone] | | | | | | | | +--------+---------+ + + + documented as of this encounter Visit Diagnoses + + | Diagnosis | + + | Piriformis syndrome of both sides - Primary | + + | Sagittal plane imbalance Other curvatures of spine associated with other conditions | + + | Acquired flat back syndrome Other lordosis (acquired) | + + | Spondylosis without myelopathy or radiculopathy, lumbar region | + + | Deconditioned low back Muscle weakness (generalized) | + + documented in this encounter
--- OUTSIDE RECORDS SUMMARY | ~2019-02-03 | XMS | Encounter Summary ---
Demographics + + + | Address | [address] | | | [place] [address] | + + + | Home Phone | | + + + | Preferred Language | Unknown | + + + | Marital Status | | + + + | Orthodoxy Affiliation | 1041 | + + + | Race | Unknown | + + + | Ethnic Group | Unknown | + + + Author + + + | Author | [facility] | | | and [place] | + + + | Organization | [facility] | | | and [...] [place] | | | | | [address] | | + + + + + Care Team Providers + +------+ + | Care Automated Teller Manager Name | Role | Phone | + +------+ + | Bartolome Frederick DO | PCP | | + +------+ + Encounter Details +--------+ + + + + | Date | Type | Department | Care Team | Description | +--------+ + + + + | 08/28/ | Orders Only | [facility] | Conversion | | | 2017 | | NEPHROLOGY [place] | Transaction, | | | | | [address] | Provider Unknown | | | | | [address] [place], [place] | | | | | | [address] | (Fax) | | | | | [phone] | | | +--------+ + + + [...] 2020 | [facility] | [facility] [address] [facility] | | | | | | [address] [place] | | | | | | [address] | | | | | | (Fax) [...]
--- OUTSIDE RECORDS SUMMARY | ~2019-02-03 | XMS | Encounter Summary ---
Demographics + + + | Address | [address] | | | [place] [address] | + + + | Home Phone | | + + + | Preferred Language | Unknown | + + + | Marital Status | | + + + | Mu-Ism Affiliation | CAT | + + + [...] Team Providers + +------+ + | Care Used Car Renovator Name | Role | Phone | + +------+ + | Bartolome Frederick DO | PCP | | + +------+ + Reason for Referral Consult to [place] (Routine) +--------+--------+ + + + + | Status | Reason | Specialty | Diagnoses / | Referred By | Referred To | | | | | Procedures | Contact | Contact | +--------+--------+ + + + + | Closed | | Neurological | Diagnoses | Michael Durbin | Annette | | | | Surgery | Other | MD [address] | Neurosurgery | | | | | kyphosis of | [address] | [address] | | | | | thoracolumba | [address] | [address] | | | | | r region | [place], | [address] | | | | | Lumbar | [place] [address] | [place], [place] | | | | | spondylosis | Phone: | [phone] | | | | | | [phone] | Phone: | | | | | Spondylolist | Fax: | [phone] | | | | | hesis of | [phone] | Fax: | | | | | lumbar | | [phone] | | | | | region | | | | | | | Lumbar | | | | | | | degenerative | | | | | | | disc | | | | | | | disease | | | | | | | Lumbar | | | | | | | foraminal | | | | | | | stenosis | | | | | | | Lumbar | | | | | | | radiculopath | | | | | | | y | | | | | | | Procedures | | | | | | | REQUEST TO | | | | | | | SURGERY | | | | | | | GIRLS SWIMMING COACH | | | | | | | [place] | | | | | | | ARTHRODESIS, | | | | | | | SINGLE | | | | | | | LEVEL;LUMBAR | | | | | | | , W/LAT | | | | | | | TRANSVERSE | | | | | | | MN LUMBAR | | | | | | | SPINE | | | | | | | FUSION,ANTER | | | | | | | APPRCH [place] | | | | | | | INSERT | | | | | | | INTERBODY | | | | | | | BIOMECH | | | | | | | DEV,TO | | | | | | | INTERVERTEBR | | | | | | | AL DISC | | | | | | | SPACE [place] | | | | | | | SPINE | | | | | | | FUSN,POST | | | | | | | TECH,EA | | | | | | | ADDNL SGMT | | | | | | | MN SPINAL | | | | | | | FUSION,ANT,E | | | | | | | A ADNL LEVEL | | | | | | | MN INSERT | | | | | | | VERT FIX | | | | | | | DEV,POST,3-6 | | | | | | | SGMTS MN | | | | | | | SCAN PROC | | | | | | | SPINAL MN | | | | | | | SPIN BONE | | | | | | | ALLOGRFT | | | | | | | MORSELIZED | | | | | | | MN SPIN BONE | | | | | | | AUTOGRFT | | | | | | | LOCAL | | | +--------+--------+ + + + + Diagnostic Testing (Routine) + +--------+ + + + + | Status | Reason | Specialty | Diagnoses / | Referred By | Referred To | | | | | Procedures | Contact | Contact | + +--------+ + + + + | Authorized | | Radiology | Diagnoses | Michael Durbin | | | | | | Other | MD [address] | | | | | | kyphosis of | [address] | | | | | | thoracolumba | [address] | | | | | | r region | [place], | | | | | | Lumbar | [place] [address] | | | | | | spondylosis | Phone: | | | | | | | [phone] | | | | | | Spondylolist | Fax: | | | | | | hesis of | [phone] | | | | | | lumbar | | | | | | | region | | | | | | | Lumbar | | | | | | | degenerative | | | | | | | disc | | | | | | | disease | | | | | | | Lumbar | | | | | | | foraminal | | | | | | | stenosis | | | | | | | Lumbar | | | | | | | radiculopath | | | | | | | y | | | | | | | Procedures | | | | | | | MRI SPINE | | | | | | | LUMBAR WO | | | | | | | CONTRAST | | | + +--------+ + + + + Reason for Visit + + + | Reason | Comments | + + + | New Patient Visit | Lumbar | + + + Consultation (Routine) + +--------+ + + + + | Status | Reason | Specialty | Diagnoses / | Referred By | Referred To | | | | | Procedures | Contact | Contact | + +--------+ + + + + | Pending | | Neurological | Diagnoses | Otoniel | Annette | | Review | | Surgery | Other | DO Bartolome | Neurosurgery | | | | | spondylosis | [address] | [address] | | | | | with | [place], | [address] | | | | | myelopathy, | [place] | [address] | | | | | lumbar | [address] | [place], [place] | | | | | region | Phone: | [phone] | | | | | Lesion of | [phone] | Phone: | | | | | sciatic | Fax: | [phone] | | | | | nerve, right | [phone] | Fax: | | | | | lower limb | | [phone] | | | | | Lesion of | | | | | | | sciatic | | | | | | | nerve, left | | | | | | | lower limb | | | + +--------+ + + + + Encounter Details +--------+---------+ + + + | Date | Type | Department | Care Team | Description | +--------+---------+ + + + | 09/13/ | Office | [facility] | Michael Durbin MD | Other kyphosis of | | 2019 | Visit | Neurosurgery at [address] | [address] | thoracolumbar region | | | | [address] | [address] | (Primary Dx); | | | | [address] | [place] [address] | Lumbar spondylosis; | | | | [place], [place] | [phone] | Spondylolisthesis of | | | | [address] | | lumbar region; | | | | [phone] | | Lumbar degenerative | | | [...] + + + | Blood Pressure | 105/58 | 09/13/2018 10:38 AM | | | | | PDT | | + + + + + | Pulse | 74 | 09/13/2018 10:38 AM | | | | | PDT | | + + + + + | Temperature | 36.7 C (98.1 F) | 09/13/2018 10:38 AM | | | | | PDT | | + + + + + | Respiratory Rate | - | - | | + + + + + | Oxygen Saturation | 97% | 09/13/2018 10:38 AM | | | | | PDT | | + + + + + | Inhaled Oxygen | - | - | | | Concentration | | | | + + + + + | Weight | 86.2 kg (190 lb) | 09/13/2018 10:38 AM | | | | | PDT | | + + + + + | Height | 177.8 cm (5' 10") | 09/13/2018 10:38 AM | | | | | PDT | | + + + + + | Body Mass Index | 27.26 | 09/13/2018 10:38 AM | | | | | PDT | | + + + + + documented in this encounter Progress Notes Micheal Durbin MD - 09/13/2018 10:15 AM PDTFormatting of this note might be different from t [facility]. Michael Durbin MD [facility] Neurosurgery Clinic [address] [address] NEUROSURGERY HISTORY AND PHYSICAL EXAMINATION CHIEF COMPLAINT: New Patient Visit (Lumbar) REFERRING PROVIDER: Michael Durbin MD HISTORY OF PRESENT ILLNESS: The patient is a 68 y.o. male with the complaint of back and right leg pain symptoms that pravin burgosan many years ago. The patient describes worsening over the last several months fairly mar kedly. He has a lot of mechanical symptoms that limit his ADL's. The symptoms have been gradually worsening. He rates the pain as 7/10. The symptoms are con tinuous. He describes the pain as sharp, aching and tight band. The patient describes leg symptoms that occur on primarily on the right. The leg symptoms a ccount for 25% of his symptoms. The leg symptoms are constant, and the symptoms travel from the back to the lateral leg. The patient also describes the loss of the ability to walk dist ances without sitting and weakness of the leg. The patient reports urinary urgency at night with no change change in bowel function recent ly. His symptoms improve with rest. His symptoms worsen with standing, walking, kneeling, bending and twisting. He has tried PT, Massage, Traction and Muscle relaxers. The patient is currently taking ner ve medication. These measures used to work but are now failing. PAST MEDICAL HISTORY: Past Medical History: Diagnosis Date Bleeding tendency (HCC) Essential hypertension PAST SURGICAL HISTORY: Past Surgical History Procedure Laterality Date Tka (total knee arthroplasty) Left 2018 Knee arthroscopy Bilateral multiple Jaw replacement 2002 Total knee replacement 2016 Appendectomy 1965 Cataract surgery of both eyes 1995, 1997 CURRENT MEDICATIONS: Current Outpatient Medications Medication Sig ascorbic acid (vitamin C) 500 mg oral capsule Take 500 mg by mouth once daily. atorvastatin 40 mg oral tablet Take 40 mg by mouth once daily. baclofen 20 mg oral tablet Take 20 mg by mouth once daily as needed. Kyvtcaf-Ufrsscznn-Woay oral tablet Take by mouth once daily. cyanocobalamin (VITAMIN B-12) 1,000 mcg oral tablet Take 1 tablet by mouth once daily. Ferrous Sulfate 324 mg (65 mg iron) oral tablet,delayed release (DR/EC) Take 324 mg by mouth once daily. gabapentin 600 mg oral tablet Take 600 mg by mouth three times [...] mouth once daily. 2.5 mg on Sunday, Thurs No current facility-administered medications for this visit. ALLERGIES: Allergies Allergen Reactions Penicillins Anaphylaxis Stopped breathing Codeine Nausea SOCIAL HISTORY: Social History Tobacco Use Smoking status: Former Smoker Packs/day: 1.00 Years: 6.00 Pack years: 6.00 Types: Cigars Last attempt to quit: 03/03/2018 Years since quittin.5 Smokeless tobacco: Current User Types: Chew Substance Use Topics Alcohol use: No FAMILY HISTORY: Family History Problem Relation Hypertension Mother Cancer Mother Hypertension Father Heart Disease Father Stroke Father REVIEW OF SYSTEMS: Neurologic: No numbness, tingling, weakness, muscle twitching, muscle shrinkage, 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 EENT: No double vision, failing vision, blurry vision, wear glasses/contacts, color blindne ss, hearing loss, ear drainage, hoarseness, nose bleeds, other: none. Gastrointestinal: No nausea, vomiting, heartburn/indigestion, blood in stool, bowel inconti nence, abdominal pain, other: none. Genitourinary: No urinary incontinence, urinary hesitancy, urinary dribbling, urinary urgen cy, urinary frequency, other: none. Constitutional: No loss of appetite, fever, chills, weight loss, other: none. Hematologic: No excessive bleeding, easy bruising, other: none. Respiratory: No shortness of breath, wheezing, cough, other: none. Musculoskeletal: No bone pain, joint pain, other: none. Cardiovascular: No chest pain, palpitations, other: none. Endocrine: No fatigue, intolerance to heat, intolerance to cold, ankle swelling, other: non e. Psychiatric: No depression, anxiety, weeping, personality changes, confusion, anger, explos rusty anger, other: none. PHYSICAL EXAMINATION: Blood pressure 105/58, pulse 74, temperature 36.7 C (98.1 F), temperature source Oral, height 1.778 m (5' 10"), weight 86.2 kg (190 lb), SpO2 97 %. Body mass index is 27.26 kg/m . GENERAL: Lupillo De La Paz is in no acute distress with unlabored respirations. The maverick ent does appear uncomfortable throughout the exam today. HEENT: Head: Normocephalic/atraumatic with no areas of recent trauma. Eyes: Normal sclerae without icterus. Ears: No drainage or tenderness. Nasopharnyx: Clear without drainage. Oropharnyx: Clear without erythema. NECK (ANTERIOR): Supple and without palpable masses. CHEST: Clear to ausculation without crackles or wheeze. HEART: Regular rate and rhythm with a systolic click. ABDOMEN: Soft, non-tender, non-distended, and without palpable masses. The patient is not o bese. SPINE: There is no tenderness of there cervical or thoracic spine. The lumbar spine shows there is tenderness in the midline of the L2-L4 levels. To palpation , there is significant bilateral myofascial tenderness at L5-S1. There is no significant pain to provacative testing of the SI joint. There is kyphosis of the lumbar region. EXTREMITIES: No cyanosis, clubbing, or edema. Distal pulses are palpable. NEUROLOGICAL EXAM: MENTAL STATUS: The patient is awake, alert, and oriented. He follows simple and complex commands. His speech is fluent, he comprehends speech well, and he repeats well. He has no apparent deficits with short or fci memory. CRANIAL NERVES: II: Acuity is intact. Ridley are full to confrontation. III, IV, : The pupils are reactive. Extraocular movements are intact. No ptosis is note d. V: Facial sensation is intact and symmetric. VII: Facial movements are symmetric. VIII: Hearing is intact bilaterally. IX, X: The uvula and palate move appropriately. XI: Shrug is equal bilaterally. XII: Tongue protrusion is midline. MOTOR EXAM: (5 IS NORMAL) * Indicates pain limited MUSCLE/ MOVEMENT: RIGHT LEFT Deltoids 5 5 Biceps 5 5 Triceps 5 5 Wrist Flexion 5 5 Wrist Extension 5 5 Median Intrinsics 5 5 Ulnar Intrinsics 5 5 [employer] Strength 5 5 Hip Flexion 4* 5 Hip Extension 4 5 Knee Flexion 4 5 Knee Extension 4- 5 Dorsiflexion 4+ 5 Extensor Hallicus Longus 5 5 Plantarflexion 5 5 SENSORY EXAM: Sensory exam shows no diminished sensation to light touch or pain throughout the upper and lower extremities. REFLEXES: (2 OR 2+ IS NORMAL) REFLEX: RIGHT LEFT BICEPS Absent Absent BRACHIORADIALIS Absent Absent TRICEPS Absent Absent PATELLAR Absent Absent ACHILLES Absent Absent VARGAS'S Absent Absent PLANTAR Down Down GAIT: Gait is antalgic and posture is stooped. TEST AND RADIOGRAPHIC REVIEW: The patient's imaging was reviewed in detail with the patient today during the visit. The M RI from 2018 shows L2-3 and L3-4 facet arthropathy with degenerative disc bulges at L2-3 and L3-4. At L3-4, there is severe stenosis of the right L3-4 foramen. Lumbar x-rays show spondylolisthesis at L2-3 and L3-4 on flexion extension views. Scoliosis x-rays show an SVR of ~6.5 cm. ASSESSMENT: NEUROSURGICAL DIAGNOSES: 1. Other kyphosis of thoracolumbar region 2. Lumbar spondylosis 3. Spondylolisthesis of lumbar region 4. Lumbar degenerative disc disease 5. Lumbar foraminal stenosis 6. Lumbar radiculopathy GENERAL DIAGNOSES: Past Medical History: Diagnosis Date Bleeding tendency (HCC) Essential hypertension PLAN: Lupillo De La Paz presented today, and we went over in great detail his neurologic probl ems. The patient has deformity and instability with root compression. The patient has progressiv e symptoms despite non-operative measures. I had a lengthy discussion with the patient about his options for care including surgical a nd non-surgical options. In discussing the surgical options, we discussed in detail the patient's options for a comb ined anterior and posterior approach for lumbar fusion at L2-L4. The indications for fusion are significant deformity causing symptoms that would not respond to decompression alone. The patient understands that in most instances the recovery from surgery can be lengthy and sometimes difficult. We discussed the risks, alternatives, and benefits to surgical intervention with Mr. De La Paz . These risks included but were not limited to , stroke, heart attack, numbness, weakn ess, paralysis, failure of fusion, failure of hardware, subsidence, adjacent segment degener ation, cerebrospinal fluid leak, bleeding, infection, injury to surrounding tissues and orga ns, injury from positioning, injury to the nerves, difficulty with breathing, difficulty wit h swallowing, difficulty with voice change, and need for additional surgery. Surgical options were discussed and the technique to be employed was described in detail to him. All his questions were answered. We discussed that the goal of the surgery is to prevent progression of his disease, but it is not considered a cure. We also discussed that although some patients may obtain 100% sym ptom relief, it is realistic to anticipate that some symptoms will continue postoperatively despite a successful surgery. We also discussed that there is no guarantee that surgery will provide improvement in his c ondition, and indeed may even worsen the symptoms. We also discussed that in the course of the procedure the operative plan may be altered to include more, less, or different levels d epending upon findings in order to provide him with the best possible outcome. I am prescribing a brace before surgery to improve his stability now to support his weak mu scles and to reduce pain by restricting mobility. For multiple (more than 1 level) fusions, I am also prescribing a bone growth stimulator po stoperatively. This is to improve the probability and rate of fusion. The patient would like to be considered for surgery as discussed and would like us to seek authorization and clearance for the operation. He will need cardiac clearance due to his me chanical value and recommendations regarding anticoagulation in particular. He will also ne ed a new lumbar MRI for surgical planning. 09/13/2018 11:30 AM documented in this encou nter Plan of Treatment +--------+---------+ + + + | Date | Type | Specialty | Care Team | Description | +--------+---------+ + + + | 04/30/ | Office | Neurological Surgery | Michael Durbin MD | | | 2019 | Visit | | [address] | | | | | | [facility] [address] | | | | | | [place] [address] | | | | | | [phone] | | | | | | | | +--------+---------+ + + + + +---------+--------+ + + | Name | Type | Priori | Associated Diagnoses | Order Schedule | | | | ty | | | + +---------+--------+ + + | MRI SPINE LUMBAR WO | Imaging | Routin | Other kyphosis of | Expected: | | CONTRAST | | e | thoracolumbar region | 09/13/2018, Expires: | | | | | Lumbar spondylosis | 10/15/2019 | | | | | Spondylolisthesis | | | | | | of lumbar region | | | | | | Lumbar degenerative | | | | | | disc disease Lumbar | | | | | | foraminal stenosis | | | | | | Lumbar | | | | | | radiculopathy | | + +---------+--------+ + + documented as of this encounter Results X-RAY SPINE LUMBOSACRAL 4 VIEWS (09/13/2018 9:54 AM PDT) + + | Specimen | + + | | + + + + + | Narrative | Performed At | + + + | EXAM DESCRIPTION: X-RAY SPINE LUMBOSACRAL 4 VIEWS CLINICAL | [facility] | | HISTORY: Lumbar spondylosis TECHNIQUE: Four views FINDINGS: | RADIOLOGY VOICE | | There is minimal scoliosis. A 6 mm retrolisthesis of L2 on L3 and | RECOGNITION | | minimal retrolisthesis of L3 on L4 are visualized without change in | | | different positions. Facet degenerative changes are noted at the L4-5 | | | and L5-S1 levels. There is moderate severe degenerative disc disease | | | throughout the lumbar spine. Vertebral heights are maintained. SI | | | joints are normal. There are scattered aortic calcifications. | | | IMPRESSION: Retrolisthesis of L2 on L3 and L3 on L4 without | | | instability Degenerative disc disease throughout the lumbar spine | | | Lower lumbar facet arthropathy Signed By: sImael Barth | | | On 09/13/2018 11:47:47 | | + + + + ---------+ | Procedure Note | + ---------+ | Service Account, Radiant Res In Interface - 09/13/2018 11:51 AM PDT EXAM | | DESCRIPTION:X-RAY SPINE LUMBOSACRAL 4 VIEWS CLINICAL HISTORY:Lumbar spondylosis | | TECHNIQUE:Four views FINDINGS: There is minimal scoliosis. A 6 mm retrolisthesis of L2 | | on L3 and minimal retrolisthesis of L3 onL4 are visualized without change in different | | positions. Facet degenerative changes are noted atthe L4-5 and L5-S1 levels. There is | | moderate severe degenerative disc disease throughout the lumbarspine. Vertebral heights | | are maintained. SI joints are normal. There are scattered aorticcalcifications. | | IMPRESSION: Retrolisthesis of L2 on L3 and L3 on L4 without instability Degenerative | | disc disease throughout the lumbar spine Lower lumbar facet arthropathy Signed By: | | Ismael Barth On 09/13/2018 11:47:47 | | | |There is minimal scoliosis. A 6 mm retrolisthesis of L2 on L3 and minimal retrolisthesis of L3 on | |L4 are visualized without change in different positions. Facet degenerative changes are not ed at | |the L4-5 and L5-S1 levels. There is moderate severe degenerative disc disease throughout th e lumbar | |spine. Vertebral heights are maintained. SI joints are normal. There are scattered aortic | |calcifications. | | | |IMPRESSION: | | | |Retrolisthesis of L2 on L3 and L3 on L4 without instability | | | |Degenerative disc disease throughout the lumbar spine | | | |Lower lumbar facet arthropathy | | | | | |Signed By: Ismael Barth On 09/13/2018 11:47:47 | + ---------+ + + + + + | Performing | Address | City/State/Zipcode | Phone Number | | Organization | | | | + + + + + | [facility] | [address] | [place] [address] | [phone] | | VOICE RECOGNITION | | | | + + + + + X-RAY SCOLI SPINE ENTR ANASTASIA AP &LAT (09/13/2018 9:54 AM PDT) + + | Specimen | + + | | + + + + + | Narrative | Performed At | + + + | EXAM DESCRIPTION: X-RAY SCOLI SPINE ENTR [facility] CLINICAL | [facility] | | HISTORY: Lumbar spondylosis TECHNIQUE: Two views FINDINGS: | RADIOLOGY VOICE | | There is exaggerated thoracic kyphosis. Minimal lumbar | RECOGNITION | | dextroscoliosis is visualized measuring 4 degrees. There are | | | degenerative subluxations at the L2-3 and L3-L4 levels. Degenerative | | | disc disease noted throughout the thoracic and lumbar spine. | | | Vertebral heights are maintained. IMPRESSION: Minimal lumbar | | | scoliosis Exaggerated thoracic kyphosis Degenerative disc | | | disease throughout Signed By: Ismael Barth On 09/13/2018 | | | 11:49:16 | | + + + + ------+ | Procedure Note | + ------+ | Service Account, Radiant Res In Interface - 09/13/2018 11:52 AM PDT EXAM | | DESCRIPTION:X-RAY SCOLI SPINE ENTR SRVY AP &LAT CLINICAL HISTORY:Lumbar spondylosis | | TECHNIQUE:Two views FINDINGS: There is exaggerated thoracic kyphosis. Minimal lumbar | | dextroscoliosis is visualized measuring 4degrees. There are degenerative subluxations at | | the L2-3 and L3-L4 levels. Degenerative discdisease noted throughout the thoracic and | | lumbar spine. Vertebral heights are maintained. IMPRESSION: Minimal lumbar scoliosis | | Exaggerated thoracic kyphosis Degenerative disc disease throughout Signed By: Lary | | Ismael On 09/13/2018 11:49:16 | | | |FINDINGS: | | | |There is exaggerated thoracic kyphosis. Minimal lumbar dextroscoliosis is visualized measur ing 4 | |degrees. There are degenerative subluxations at the L2-3 and L3-L4 levels. Degenerative dis c | |disease noted throughout the thoracic and lumbar spine. Vertebral heights are maintained. | | | |IMPRESSION: | | | |Minimal lumbar scoliosis | | | |Exaggerated thoracic kyphosis | | | |Degenerative disc disease throughout | | | | | |Signed By: Ismael Barth On 09/13/2018 11:49:16 | + ------+ + + + + + | Performing | Address | City/State/Zipcode | Phone Number | | Organization | | | | + + + + + | [facility] | [address] | [place] [address] | [phone] | | VOICE RECOGNITION | | | | + + + + + documented in this encounter Visit Diagnoses + + | Diagnosis | + + | Other kyphosis of thoracolumbar region - Primary | + + | Lumbar spondylosis Lumbosacral [...]
--- OUTSIDE RECORDS SUMMARY | ~2019-02-03 | XMS | Encounter Summary ---
Demographics + + + | Address | [address] | | | [place] [address] | + + + | Home Phone | | + + + | Preferred Language | Unknown | + + + | Marital Status | | + + + | Adventism Affiliation | CAT | + + + [...] Team Providers + +------+ + | Care Inventory Management Specialist Name | Role | Phone | + +------+ + PCP | Unavailable | + +------+ + Encounter Details +--------+ + + + + | Date | Type | Department | Care Team | Description | +--------+ + + + + | 07/13/ | Discharge | | Summary, Discharge | D/C Summary ODDS | | 2002 | Summary-Tra | | | | | | nscribed | | | | +--------+ + + [...] + + documented as of this encounter Discharge Summaries Interface, Mission Manager In - 08/29/2005 3:[address] [address] [facility] MEDICAL SUMMARY OF HOSPITALIZATION Med Rec No: [id number] Admission Date: 07/02/2002 Name: Lupillo De La Paz Discharge Date: 07/13/2002 ATTENDING PHYSICIAN: Khai Daly M.D. PRINCIPAL FINAL DIAGNOSIS: Mitral valve endocarditis. ADDITIONAL DIAGNOSES: 1. Mild mitral regurgitation. 2. PENICILLIN ALLERGY. 3. Chronic radiant pain. 4. History of appendectomy. 5. History of arthroscopic knee surgeries, bilateral. 6. Migraine headaches. PRINCIPAL PROCEDURE: Mitral valve replacement with 31-mm St. Donald mechanical valve. ADDITIONAL PROCEDURES: 1. Blood cultures. 2. Infectious disease consultation. 3. Intravenous antibiotics. 4. Daily electrocardiograms. 5. Cardiology consultation. 6. Cardiothoracic surgery consultation. 7. Transesophageal echocardiogram on 07/04/2002. 8. Cardiac catheterization on 07/07/2002. 9. Pulmonary function tests on 07/08/2002. 10. Beta lactamase desensitization on 07/07/2002. 11. Groshong placement on 07/11/2002. 12. Oral anticoagulation. REASON FOR ADMISSION: Mr. De La Paz is a 52-year-old man with a three-month history of migrating arthritis, intermittent fevers, and transient right eye blindness. It was felt that he initially had giant cell arteritis and was treated for this with prednisone and methotrexate. This did not result in any relief of his arthritis or fevers. He underwent echocardiogram in late April that was reportedly normal. He had abdominal pain in early June and underwent CT scan of the abdomen, which showed splenic infarcts and pericardial effusion. He subsequently developed splinter hemorrhages and a mitral regurgitation murmur. He was admitted to the hospital in [place], [place], where he lives with persistently positive blood cultures growing enterococcus castillo sensitive to vancomycin, penicillin, and Levaquin. He underwent repeat echocardiogram that demonstrated mitral vegetations and mild mitral regurgitation. He was started on vancomycin and gentamycin for his enterococcus infection. Penicillin, which would have been the treatment of choice, was not used because of his penicillin allergy. He continued to have fevers while in the hospital and persistent leukocytosis. He then developed left renal infarct on abdominal CT and a repeat echocardiogram showed enlargement of the mitral valve vegetations. A plan was made for him to be transferred to [facility] for further treatment. HOSPITAL COURSE: Mr. De La Paz was admitted to the medicine service at [facility]. He was continued on his medications, which included vancomycin 1 g intravenously every 24 hours, gentamicin 140 mg intravenously q.12h., Mycelex Eros, prednisone 3 mg p.o. q.d., Ambien 10 mg p.o. q.hs. p.r.n., Fiorinal one to two tablets p.o. q.4-6h. p.r.n., and Tylenol. Blood cultures were obtained, and an infectious disease consult was also obtained. In addition, a cardiothoracic surgery consult was obtained. It was felt that he would most likely need valve replacement surgery. He was followed with serial electrocardiograms, which demonstrated no changes in his conduction patterns. The patient also underwent transesophageal echocardiogram on the , which showed mild mitral valve regurgitation and normal left ventricular systolic function. On 07/07/2002, he underwent a cardiac catheterization, which demonstrated no other underlying obstructive coronary artery disease. Plan was made for the patient to undergo mitral valve replacement. Also, he underwent penicillin desensitization so that ampicillin could be used for treatment of his enterococcus. He was started on ampicillin on 07/07/2002, as well as modified gentamicin dose. This was due to new renal insufficiency. He did well with this. On 07/08/2002, he underwent his mitral valve replacement with a 31-mm St. Donald valve. He tolerated this procedure well. Following his operation, he was transferred to the Intensive Care Unit. He did well there. He was started on a heparin drip on postoperative day #2. He tolerated this well. His chest tube, drain, and pacing wires were all removed. On postoperative day #3, the patient was transferred to the helms. He did well there. He also underwent placement of a Groshong catheter for long-term antibiotic treatment on postoperative day #3. He tolerated this well. He was started on Coumadin therapy immediately following placement of his Groshong catheter. He was transitioned off his heparin drip. On postoperative day #5, as the patient was feeling well, he remained afebrile, he was tolerating his intravenous antibiotics well, and his INR was therapeutic at 2.3, it was felt he was ready for discharge home on intravenous antibiotics and oral anticoagulation with Coumadin. CONDITION ON DISCHARGE: Stable. DISPOSITION: Home. DISCHARGE INSTRUCTIONS MEDICATIONS: 1. Coumadin 7.5 mg p.o. q.d. to be modified based on his INR. 2. Oxycodone 5-15 mg p.o. q.4h. p.r.n. 3. Gentamycin 70 mg intravenously q.24h. to be used until 08/05/2002. This is unless his intraoperative cultures grow enterococcus, in which case he should be treated until 08/19/2002. 4. Ampicillin 2 g intravenously q.4h., also to be used until 08/05/2002 or 08/19/2002. 5. Amiodarone 200 mg p.o. q.d. for one month. DIET: Regular diet as tolerated. ACTIVITY: As tolerated with sternal wound precautions. FOLLOWUP: He is to follow up with his primary care physician in one week in [place], [place]. In addition, he is to follow up with the cardiothoracic surgery service as needed. Floresita Alamo M.D. Khai Daly M.D. RS/x53 cc: [id number] signed by Mariel Martinez In at 08/29/2005 3:09 AM [facility] umented in this encounter Plan of Treatment +--------+---------+ + + + | Date | Type | Specialty | Care Team | Description | +--------+---------+ + + + | 04/30/ | Office | Neurological Surgery | Michael Durbin MD | | | 2020 | Visit | | [address] | | | | | | [facility] [address] | | | | | | [place] [address] | | | | | | [phone] | | | | | | | | +--------+---------+ + + + documented as of this encounter Visit Diagnoses Not on filedocumented in this encounter"
--- OUTSIDE RECORDS SUMMARY | ~2019-02-03 | XMS | Encounter Summary ---
Demographics + + + | Address | [address] | | | [place] [address] | + + + | Home Phone | | + + + | Preferred Language | Unknown | + + + | Marital Status | | + + + | Zoroastrian Affiliation | 1041 | + + + | Race | Unknown | + + + | Ethnic Group | Unknown | + + + Author + + + | Author | [facility] | | | and [place] | + + + | Organization | [facility] | | | [...] [address] | | | | | [place] | | | | | [address] | | + + + + + Care Team Providers + +------+ + | Care Toe Former Name | Role | Phone | + +------+ + | Bartolome Frederick DO | PCP | | + +------+ + Reason for Referral Evaluate & Treat (Routine) +--------+ + + + + + | Status | Reason | Specialty | Diagnoses / | Referred By | Referred To | | | | | Procedures | Contact | Contact | +--------+ + + + + + | Closed | Specialty | Orthopedic | Diagnoses | Otoniel, | Silver Ortez | | | Services | Surgery | Piriformis | Bartolome Dawn, | MD Val [address] | | | Required | | syndrome of | DO [address] | | | | | both sides | [address] | [place], [place] | | | | | Sagittal | [place], [place] | [address] Phone: | | | | | plane | [address] | [phone] | | | | | imbalance | Phone: | Fax: | | | | | Acquired | [phone] | [phone] | | | | | flat back | Fax: | | | | | | syndrome | [phone] | | | | | | Deconditione | | | | | | | d low back | | | | | | | Spondylosis | | | | | | | without | | | | | | | myelopathy | | | | | | | or | | | | | | | radiculopath | | | | | | | y, lumbar | | | | | | | region | | | +--------+ + + + + + Reason for Visit + + + | Reason | Comments | + + + | Back Pain | "for years", denies injury | + + + Encounter Details +--------+---------+ + + + | Date | Type | Department | Care Team | Description | +--------+---------+ + + + | 06/04/ | Office | [place] [facility] | Bartolome Frederick | Piriformis syndrome | | 2019 | Visit | [facility] | E, DO [address] | of both sides | | | | [facility] | [place], [place] | (Primary Dx); | | | | [address] [facility], | [address] | Sagittal plane | | | | [place] [address] | [phone] | imbalance; Acquired | | | | [phone] | | flat back syndrome; | | | | | | Deconditioned low | | | | | | back; Spondylosis | | | | | | without myelopathy | | | | | | or radiculopathy, | | | | | | lumbar region; | | | | | | ENDOCARDITIS,MITRAL | | | | | | VALVE W/ENLARGED | | | | | | ANTERIOR LEAFLET VEG | +--------+---------+ + + + Social History [...] | Shots of liquor 0-1 | | [place]) | | | Standard drinks or | [...] + + + | Blood Pressure | 118/70 | 06/04/2018 9:10 AM | Med cuff, right arm | | | | PDT | | + + + + + | Pulse | 82 | 06/04/2018 9:10 AM | Reg | | | | PDT | | + + + + + | Temperature | - | - | | + + + + + | Respiratory Rate | 16 | 06/04/2018 9:10 AM | | | | | PDT | | + + + + + | Oxygen Saturation | 96% | 06/04/2018 9:10 AM | RA | | | | PDT | | + + + + + | Inhaled Oxygen | - | - | | | Concentration | | | | + + + + + | Weight | 98 kg (216 lb) | 06/04/2018 9:10 AM | Stated | | | | PDT | | + + + + + | Height | 177.8 cm (5' 10") | 06/04/2018 9:10 AM | Stated | | | | PDT | | + + + + + | Body Mass Index | 30.99 | 06/04/2018 9:10 AM | | | | | PDT | | + + + + + documented in this encounter Progress Notes Bartolome Frederick DO - 06/04/2018 9:20 AM PDT Patient ID: Lupillo De La Paz is a 68 y.o. year old male Chief Complaint: Chief Complaint Patient presents with Back Pain "for years", denies injury Assessment and Plan: Piriformis syndrome of both sides (Primary) Assessment & Plan: -Referral placed to [facility]. Ortez [facility] for second option. Discussed the significance of changes in bowel or bladder. -Continue current treatment of Gabapentin and start physical therapy. -Encouraged him to use hiking poles with ambulation. Orders: - Ambulatory referral to Orthopedic Surgery Sagittal plane imbalance - Ambulatory referral to Orthopedic Surgery Acquired flat back syndrome - Ambulatory referral to Orthopedic Surgery Deconditioned low back - Ambulatory referral to Orthopedic Surgery Spondylosis without myelopathy or radiculopathy, lumbar region Assessment & Plan: -Referral placed to Dr. Ortez at [facility] for second option. Discussed the significance of changes in bowel or bladder. -Continue current treatment of Gabapentin and start physical therapy. -Encouraged him to use hiking poles with ambulation. Orders: - Ambulatory referral to Orthopedic Surgery ENDOCARDITIS,MITRAL VALVE W/ENLARGED ANTERIOR LEAFLET VEG Assessment & Plan: -Encouraged him to follow up with Cardiology regarding his Mitral valve. Subjective: HPI: Patient presents to the clinic for back pain. He saw [facility] Orthopedic Surgery for Piriformis Syndrome of both sides, Sagittal plane imbala nce, Acquired flat back syndrome, Deconditioned low back, and Spondylosis without myelopathy or radiculopathy of the lumbar region. They suggested that he participate in physical thera py. He was also advised that he should be using hiking poles for gait stablity but he does n ot feel like it is neccessary. He will be starting physical therapy on 06/19/18. He has been experiencing chronic back pain that has been worsening over the past year. The numbness rad iates into his low back and down the front of his legs. The pain in his low back is sharp an d dull. He denies incontinence of bowel or bladder or saddle numbness. Recently he "threw hi s back out". At the time he felt a "snap" in his back and was unable to get up out of a anna r for at least 3 days. He is currently taking Gabapentin 600mg TID and will have an increase in pain if he misses a dose. He does not want to take any pain medication. He has a family member that recommended that he get a second opinion at [facility] with Dr. Silver Ortez MD,FAAOS. He does not want to have his "back broken" with surgery. In September he will have a repeat US and follow up with Cardiology. Review of Systems Constitutional: Negative. Negative for fatigue. Musculoskeletal: Positive for back pain and gait problem. Neurological: Positive for numbness. Negative for dizziness and light-headedness. Objective: Vitals: BP 118/70 Comment: Med cuff, right arm | Pulse 82 Comment: Reg | Resp 16 | Ht 1.778 m (5' 10") Comment: Stated | Wt 98 kg (216 lb) Comment: Stated | SpO2 96% Comment: RA | BMI 30.99 kg/m Physical Exam Constitutional: He appears well-developed and well-nourished. HENT: Head: Normocephalic and atraumatic. Cardiovascular: Normal rate, regular rhythm and normal heart sounds. Pulmonary/Chest: Effort normal and breath sounds normal. Neurological: He is alert. Gait abnormal. Psychiatric: He has a normal mood and affect. Entered by Ame Guillen CNA 2, [facility], acting as scribe for Dr. Otoniel DO The documentation recorded by the scribe accurately reflects the service I personally perfo ed and the decisions made by me. Electronically signed by: Dr. Bartolome Frederick DO 06/04/2018 10:43 documented in this encounter Plan of Treatment +--------+---------+ + + + | Date | Type | Specialty | Care Team | Description | +--------+---------+ + + + | 02/19/ | Office | Nephrology | Ismael Young MD | | | 2020 | Visit | | [address] [facility] | | | | | | [address] [place], [place] | | | | | | [address] | | | | | | | | +--------+---------+ + + + + + +--------+ + + | Name | Type | Priori | Associated Diagnoses | Order Schedule | | | | ty | | | + + +--------+ + + | Orthopedic Surgery, | Outpatient | Routin | Piriformis | Ordered: 06/04/2018 | | External - AMB | Referral | e | syndrome of both | | | Referral | | | sides Sagittal | | | | | | plane imbalance | | | | | | Acquired flat back | | | | | | syndrome | | | | | | Deconditioned low | | | | | | back Spondylosis | | | | | | without myelopathy | | | | | | or radiculopathy, | | | | | | lumbar region | | + + +--------+ + + documented as of this encounter Visit Diagnoses + + | Diagnosis | + + | Piriformis syndrome of both sides - Primary | + + | Sagittal plane imbalance Other curvatures of spine associated with other conditions | + + | Acquired flat back syndrome Other lordosis (acquired) | + + | Deconditioned low back Muscle weakness (generalized) | + + | Spondylosis without myelopathy or radiculopathy, lumbar region | + + | ENDOCARDITIS,MITRAL VALVE W/ENLARGED ANTERIOR LEAFLET VEG Endocarditis, valve | | unspecified, unspecified cause | + + documented in this encounter
--- OUTSIDE RECORDS SUMMARY | ~2019-02-03 | XMS | Encounter Summary ---
Demographics + + + | Address | [address] | | | [place] [address] | + + + | Home Phone | | + + + | Preferred Language | Unknown | + + + | Marital Status | | + + + | Samaritan Affiliation | CAT | + + + [...] Team Providers + +------+ + | Care Human Services Program Specialist Name | Role | Phone | + +------+ + PCP | Unavailable | + +------+ + Encounter Details +--------+ + + + + | Date | Type | Department | Care Team | Description | +--------+ + + + + | 07/07/ | Procedure - | | Report, Cardiac | Cardiac Cath | | 2002 | | | Cath | | | | Transcribed | | | | +--------+ + + [...] documented as of this encounter Progress Notes Interface, Video Production Intern In - 08/29/2005 3:09 AM PDT [place] [address], [place] [id number] , [facility], Department of Medicine Division of Cardiology Cardiac Catheterization Laboratory Patient Name: Lupillo CASTANEDA Patient Data: Height 177.8 cm Weight 94 kg BSA 2.12 m2 Date of Procedure: July 07, 2002 : 1950 Physician: Reji Palmer M.D. Certified Personal Finance Counselor, Medicine Division of Cardiology Referring Physician: Hira Barros M.D. Professor, Medicine Division of Cardiology Primary Physician: Khai Ackerman 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 PROCEDURES PERFORMED: Coronary angiography. COMPLICATIONS: Nil. 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 Coronary angiography was performed prior to mitral valve replacement/repair. In view of the known presence of mitral valve vegetation, left heart catheterization and left ventriculography were not performed. PROCEDURE NOTES: Vascular access was obtained with a 6 Fr sheath in the right femoral artery. Cannulation of the left coronary ostium was performed with a Mark left 4 catheter and the right coronary ostium with a Mark right 4 catheter. Hemostasis was achieved uneventfully with manual pressure. CONTRAST: Omnipaque 60 mL FLUOROSCOPY TIME: 1.9 minutes FLUOROSCOPY DOSE: 10.8 Gycm2 HEMODYNAMIC DATA: Heart rate 107 beats per minute. Aortic pressure 123/69 mmHg, mean 92. ANGIOGRAPHIC DATA: FLUOROSCOPY: On fluoroscopy, a PICC line is noticed to be low in the right atrium. CORONARY ANGIOGRAPHY: Left main coronary artery stem: Long and normal. Left anterior descending coronary artery: Modestly sized vessel running in the anterior interventricular groove, giving rise to a first diagonal and multiple septal perforators before reaching the apex. There is mild, diffuse plaque disease within this vessel, but no high-grade obstruction is demonstrated. First diagonal branch: Mild diffuse plaque disease. Circumflex coronary artery: Large vessel running in the atrioventricular groove, giving rise to a large first marginal branch and an atrioventricular circumflex coronary artery continuation. There is a 20% proximal plaque noted, and mild diffuse plaque disease throughout both is also noted. There is, however, no evidence of high-grade obstructive disease. Right coronary artery: Large, dominant, and somewhat tortuous vessel. This gives rise to three smaller terminal posterior descending and posterolateral branches. There is diffuse mild plaque disease throughout, but no high-grade obstruction is demonstrated. CONCLUSIONS: 1. Mild, diffuse, nonobstructive coronary plaque disease. 2. PICC line situated in the low right atrium. Reji Palmer M.D. Certified Personal Finance Counselor, Medicine Division of Cardiology [facility]/p Job No. [id number] signed by Interface, Video Production Intern In at 08/29/2005 3:09 AM PDTdocumented in this encounter Plan of Treatment +--------+---------+ + + + | Date | Type | Specialty | Care Team | Description | +--------+---------+ + + + | 04/30/ | Office | Neurological Surgery | Michael Durbin MD | | | 2019 | Visit | | [address] | | | | | | [address] | | | | | | [place] [address] | | | | | | [phone] | | | | | | | | +--------+---------+ + + + documented as of this encounter Visit Diagnoses Not on filedocumented in this encounter"
--- OUTSIDE RECORDS SUMMARY | ~2019-02-03 | XMS | Encounter Summary ---
Demographics + + + | Address | [address] | | | [place] [address] | + + + | Home Phone | | + + + | Preferred Language | Unknown | + + + | Marital Status | | + + + | Sabianism Affiliation | 1041 | + + + | Race | Unknown | + + + | Ethnic Group | Unknown | + + + Author + + + | Author | [facility] | | | and [place] | + + + | Organization | [facility] | | | and [place] | + + + | Address | Unknown | + + + | Phone | Unavailable | + + + Support + + + + + | Name | Relationship | Address | Phone | + + + + + | Ai [place] | ECON | [address] | | | | | [facility] [place] | | | | | [address] | | + + + + + Care Team Providers + +------+ + | Care Funeral Home Assistant Name | Role | Phone | + +------+ + PCP | Unavailable | + +------+ + Encounter Details +--------+ + + + + | Date | Type | Department | Care Team | Description | +--------+ + + + + | 10/18/ | Abstract | [facility] | DATA MIGRATION SIMONE | | | 2012 | | Conversion Location | SR | | | | | [phone] | | | +--------+ + + + [...] + + + | Blood Pressure | 150/78 | 05/15/2011 12:00 AM | | | | | PDT [...] + + + + | Weight | 97.5 kg (215 lb) | 05/15/2011 12:00 AM | | | | | PDT | | + + + + + | Height | 177.8 cm (5' 10") | 04/03/2011 12:00 AM | | | | | PST | | + + + + + | Body Mass Index | 30.85 | 04/03/2011 12:00 AM | | | | | PST | | + + + + + documented in this encounter Plan of Treatment +--------+---------+ + + + | Date | Type | Specialty | Care Team | Description | +--------+---------+ + + + | 02/19/ | Office | Nephrology | Ismael Young MD | | | 2020 | Visit | | [address] [facility] | | | | | | [address] [place] | | | | | | [address] | | | | | | | | +--------+---------+ + + + documented as of this encounter Visit Diagnoses Not on filedocumented in this encounter
--- OUTSIDE RECORDS SUMMARY | ~2019-02-03 | XMS | Encounter Summary ---
Demographics + + + | Address | [address] | | | [place] [address] | + + + | Home Phone [...] Team Providers + +------+ + | Care Photogrammetric Compilation Specialist Name | Role | Phone | + +------+ + | Bartolome Frederick DO | PCP | | + +------+ + Reason for Visit + + + | Reason | Comments | + + + | Medication | | + + + Encounter Details +--------+ + + + + | Date | Type | Department | Care Team | Description | +--------+ + + + + | 11/26/ | Telephone | [facility] | Michael Durbin MD | Medication | | 2019 | | Neurosurgery at [address] | [address] | | | | | [address] | [address] | | | | | [address] | [place] [address] | | | | | [place], [place] | [phone] | | | | | [address] | | | | | | [phone] | | | +--------+ + + + [...] [address] | | | | | | [place] [address] | | | | | | [phone] | | | | | | | | +--------+---------+ + + + documented as of this encounter Visit Diagnoses + + | Diagnosis | + + | S/P lumbar fusion - Primary Arthrodesis status | + + documented in this encounter"
--- OUTSIDE RECORDS SUMMARY | ~2019-02-03 | XMS | Encounter Summary ---
Demographics + + + | Address | [address] | | | [place] [address] | + + + | Home Phone | | + + + | Preferred Language | Unknown | + + + | Marital Status | | + + + | Voodoo Affiliation | 1041 | + + + | Race | Unknown | + + + | Ethnic Group | Unknown | + + + Author + + + | Author | [facility] | | | and [place] | + + + | Organization | [facility] | | | [...] [address] | | | | | [address] | | + + + + + Care Team Providers + +------+ + | Care Cement Or Concrete Finishing Supervisor Name | Role | Phone | + [...] + + | 10/02/ | Telephone | [facility] | Ismael Young MD | Other (Appointment | | 2019 | | NEPHROLOGY [place] | [address] [place] | reminder call) | | | | [address] [place] | [address] [place] | | | | | [address] [place] | [address] | | | | | [address] | | | | | | [phone] | | | +--------+ + + + [...] | Shots of liquor 0-1 | | [place]) | | | Standard drinks or | [...] 2020 | Visit | | [address] [facility] | | | | | | [address] [place] | | | | | | [address] | | | | | | | | +--------+---------+ + + + documented as of this encounter Visit Diagnoses Not on filedocumented in this encounter"
--- OUTSIDE RECORDS SUMMARY | ~2019-02-03 | XMS | Encounter Summary ---
Demographics + + + | Address | [address] | | | [place] [address] | + + + | Home Phone | | + + + | Preferred Language | Unknown | + + + | Marital Status | | + + + | Rastafarian Affiliation | 1041 | + + + | Race | Unknown | + + + | Ethnic Group | Unknown | + + + Author + + + | Author | [facility] | | | and [place] | + + + | Organization | [facility] | | | and [place] | + + + | Address | Unknown | + + + | Phone | Unavailable | + + + Support + + + + + | Name | Relationship | Address | Phone | + + + + + | Ai De La Paz | ECON | [address] | | | | | [address] | | | | | [address] | | + + + + + Care Team Providers + +------+ + | Care Production Consultant Name | Role | Phone | + +------+ + PCP | Unavailable | + +------+ + Encounter Details +--------+ + + + + | Date | Type | Department | Care Team | Description | +--------+ + + + + | 04/09/ | Hospital | [facility] | Chiara Coello, | | | 2011 | Encounter | MED CTR XRAY [address] | [employer] [address] | | | | | [place] | [address] [place] | | | | | [place] [address] | [address] | | | | | [phone] | | | +--------+ + + + [...] Description | +--------+---------+ + + + | Office | Nephrology | Ismael Young MD | | | 2019 | Visit | | [address] [facility] | | | | | | [address] [place], [place] | | | | | | [address] | | | | | | | | +--------+---------+ + + + documented as of this encounter Procedures + +--------+ + + + | Procedure Name | Priori | Date/Time | Associated Diagnosis | Comments | | | ty | | | | + +--------+ + + + | ECHO COMPLETE | | 04/10/2011 | | Results for this | | | | 7:23 AM | | procedure are in the | | | | PST | | results section. | + +--------+ + + + documented in this encounter Results ECHO Complete (04/10/2011 7:23 AM PST) + + | Specimen | + + | | + + + + + | Narrative | Performed At | + + + | [facility] Diagnostic Imaging Department | [facility] | | [address] [facility] | [facility] | | E C H O C A R D | DIAG IMG | | I O G R A P H Y R E P O R T HEIGHT: 5'10" | | | WEIGHT: 210# OUTPATIENT THERAPIST: KEVYN REFERRING DR: | | | SIMA VILLALOBOS DR: CHINEDU DIAGNOSIS: MVR MECANICAL, | | | ENDOCARDITIS | | | | | | M E A S U R E M E N T S | | | Aortic Root: 34 mm LV Diameter-diastole: | | | 46 mm Aortic Cusp Sep: 19 mm LV | | | Diameter--systole: 28 mm LA: 55 mm | | | Fractional Shortenin % IVS--diastole: | | | 11 mm PFV Aortic Valve: IVS--systole: | | | 17 mm MPG Mitral Valve: 4.5 mmHg | | | LVPW--diastole: 10 mm PFV TR Jet: | | | 2.52 m/s LVPW--systole: 16 mm RA/RV PPG: | | | 25.3 mmHg | | | | | | ECHOCARDIOGRAPHY, 04/10/2011 INDICATIONS FOR PROCEDURE: | | | MITRAL VALVE REPLACEMENT/ENDOCARDITIS. TECHNICAL DATA: The | | | quality of the study is adequate. This is a 2-D echo / M- mode / | | | Doppler / color Doppler study. FINDINGS: Left atrial size is | | | mildly dilated. Left ventricular size is normal with normal wall | | | thickness and normal left ventricular systolic function. LVEF is | | | 55-60%. There is a grade I left ventricular diastolic dysfunction. | | | Aortic root is mildly dilated, measuring 3.4 cm in diameter. | | | Right atrial size is mildly dilated. Right ventricular size is | | | normal with normal wall thickness and normal right ventricular | | | systolic function. Pericardium is normal. Pulmonary artery is | | | normal. Aortic valve is trileaflet and opens normally. 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 Mean | | | gradient across the mitral valve is 4.6 mmHg. There is a trace | | | mitral valve regurgitation. Pulmonic valve is normal. Tricuspid | | | valve is normal. There is a mild tricuspid valve regurgitation. | | | IVC is normal. IMPRESSION: 1. MILD LEFT ATRIAL DILATATION. | | | 2. NORMAL LEFT VENTRICULAR SIZE, WALL THICKNESS AND MOTION. | | | PRESERVED LEFT VENTRICULAR SYSTOLIC FUNCTION. THE LVEF IS | | | 55-60%. 3. GRADE I LEFT VENTRICULAR DIASTOLIC DYSFUNCTION. | | | 4. A NORMALLY FUNCTIONING BILEAFLET MECHANICAL MITRAL VALVE | | | PLACEMENT. THERE IS A TRACE TRANSVALVULAR MITRAL VALVE | | | REGURGITATION. THERE IS NO EVIDENCE OF VEGETATION SEEN. 5. | | | MILD TRICUSPID VALVE REGURGITATION. 6. WHEN COMPARED TO THE | | | ECHOCARDIOGRAPHY ON 02/27/2005, THERE IS NO SIGNIFICANT CHANGES. | | | Dictated Date/Time: 04/10/2011 10:26 Transcribed Date/Time: | | | 04/10/2011 10:34 Senior Research Consultant: <Electronically Signed | | | by Roxanne Patino MD [facility]> 04/11/11 0641 | | + + + + + | Procedure Note | + + | Tino, Thony Conversion - 03/14/2013 4:51 PM [facility] | | Diagnostic Imaging Department | | [address] [facility] | | | | | | | | E C H O C A R D I O G R A P H Y R E P O R T | | | | | | HEIGHT: 5'10" WEIGHT: 210# OUTPATIENT THERAPIST: [facility] | | REFERRING DR: SIMA VILLALOBOS DR: CHINEDU | | | | DIAGNOSIS: MVR MECANICAL, ENDOCARDITIS | | | | | | M E A S U R E M E N T S | | | | Aortic Root: 34 mm LV Diameter-diastole: 46 mm | | Aortic Cusp Sep: 19 mm LV Diameter--systole: 28 mm | | LA: 55 mm Fractional Shortenin % | | IVS--diastole: 11 mm PFV Aortic Valve: | | IVS--systole: 17 mm MPG Mitral Valve: 4.5 mmHg | | LVPW--diastole: 10 mm PFV TR Jet: 2.52 m/s | | LVPW--systole: 16 mm RA/RV PP.3 mmHg | | | | | | | | ECHOCARDIOGRAPHY, 04/10/2011 | | | | INDICATIONS FOR PROCEDURE: MITRAL VALVE REPLACEMENT/ENDOCARDITIS. | | | | TECHNICAL DATA: The quality of the study is adequate. This is a 2-D echo / M- | | mode / Doppler / color Doppler study. | | | | FINDINGS: Left atrial size is mildly dilated. Left ventricular size is normal | | with normal wall thickness and normal left ventricular systolic function. LVEF | | is 55-60%. There is a grade I left ventricular diastolic dysfunction. Aortic | | root is mildly dilated, measuring 3.4 cm in diameter. Right atrial size is | | mildly dilated. Right ventricular size is normal with normal wall thickness | | and normal right ventricular systolic function. Pericardium is normal. | | Pulmonary artery is normal. Aortic valve is trileaflet and opens normally. 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 Mean | | gradient across the mitral valve is 4.6 mmHg. There is a trace mitral valve | | regurgitation. Pulmonic valve is normal. Tricuspid valve is normal. There | | is a mild tricuspid valve regurgitation. IVC is normal. | | | | IMPRESSION: | | 1. MILD LEFT ATRIAL DILATATION. | | | | 2. NORMAL LEFT VENTRICULAR SIZE, WALL THICKNESS AND MOTION. PRESERVED LEFT | | VENTRICULAR SYSTOLIC FUNCTION. THE LVEF IS 55-60%. | | | | 3. GRADE I LEFT VENTRICULAR DIASTOLIC DYSFUNCTION. | | | | 4. A NORMALLY FUNCTIONING BILEAFLET MECHANICAL MITRAL VALVE PLACEMENT. THERE | | IS A TRACE TRANSVALVULAR MITRAL VALVE REGURGITATION. THERE IS NO EVIDENCE OF | | VEGETATION SEEN. | | | | 5. MILD TRICUSPID VALVE REGURGITATION. | | | | 6. WHEN COMPARED TO THE ECHOCARDIOGRAPHY ON 02/27/2005, THERE IS NO | | SIGNIFICANT CHANGES. | | | | Dictated Date/Time: 04/10/2011 10:26 | | Transcribed Date/Time: 04/10/2011 10:34 | | Senior Research Consultant: | | <Electronically Signed by Roxanne Patino MD [facility]> 04/11/11 0641 | + + + +---------+ + + | Performing | Address | City/State[facility] | Phone Number | | Organization | | | | + +---------+ + + | [place] | | | | | [place] | | | | + +---------+ + + documented in this encounter Visit Diagnoses Not on filedocumented in this encounter
--- OUTSIDE RECORDS SUMMARY | ~2019-02-03 | XMS | Encounter Summary ---
Demographics + + + | Address | [address] | | | [place] [address] | + + + | Home Phone | | + + + | Preferred Language | Unknown | + + + | Marital Status | | + + + | Mormon Affiliation | 1041 | + + + | Race | Unknown | + + + | Ethnic Group | Unknown | + + + Author + + + | Author | [facility] | | | and [place] | + + + | Organization | [facility] | | [...] [address] | | | | | [place] | | | | | [address] | | + + + + + Care Team Providers + +------+ + | Care Economics Instructor Name | Role | Phone | + +------+ + PCP | Unavailable | + +------+ + Encounter Details +--------+ + + + + | Date | Type | Department | Care Team | Description | +--------+ + + + + | 12/17/ | Hospital | [facility] | | | | 2001 | Encounter | MED CTR GENERIC OP | | | | | | CONV DEPT [address] | | | | | | [place], | | | | | | [place] [address] | | | | | | [phone] | | | +--------+ + + + [...] 2020 | Visit | | [address] [facility] | | | | | | [address] [place] | | | | | | [address] | | | | | | | | +--------+---------+ + + + documented as of this encounter Visit Diagnoses Not on filedocumented in this encounter"
--- OUTSIDE RECORDS SUMMARY | ~2019-02-03 | XMS | Encounter Summary ---
Demographics + + + | Address | [address] | | | [place] [address] | + + + | Home Phone | | + + + | Preferred Language | Unknown | + + + | Marital Status | | + + + | Anglican Affiliation | CAT | + + + [...] Team Providers + +------+ + | Care Safety Companion Name | Role | Phone | + +------+ + PCP | Unavailable | + +------+ + Encounter Details +--------+ + + + + | Date | Type | Department | Care Team | Description | +--------+ + + + + | 07/03/ | Results | | Other, Faculty | | | 2002 | Only | | [phone] | | +--------+ + + + + [...] | 2020 | Visit | | [address] [facility] [address] | | | | | | [facility] [address] | | | | | | [place] [address] | | | | | | [phone] | | | | | | | | +--------+---------+ + + + documented as of this encounter Procedures + +--------+ + + + | Procedure Name | Priori | Date/Time | Associated Diagnosis | Comments | | | ty | | | | + +--------+ + + + | INR | Routin | 07/13/2002 | | Results for this | | | e | 11:15 AM | | procedure are in the | | | | PDT | | results section. | + +--------+ + + + | APTT (ACT. PART. | Routin | 07/13/2002 | | Results for this | | THROMBO TIME) | e | 11:15 AM | | procedure are in the | | | | PDT | | results section. | + +--------+ + + + | DIFFERENTIAL | Routin | 07/13/2002 | | Results for this | | | e | 6:20 AM | | procedure are in the | | | | PDT | | results section. | + +--------+ + + + | CBC, WITH | Routin | 07/13/2002 | | Results for this | | DIFFERENTIAL | e | 6:20 AM | | procedure are in the | | | | PDT | | results section. | + +--------+ + + + | BASIC METABOLIC SET | Routin | 07/13/2002 | | Results for this | | (NA, K, CL, TCO2, | e | 6:20 AM | | procedure are in the | | BUN, CR, GLU, CA) | | PDT | | results section. | + +--------+ + + + | PHOSPHORUS, PLASMA | Routin | 07/13/2002 | | Results for this | | | e | 6:20 AM | | procedure are in the | | | | PDT | | results section. | + +--------+ + + + | MAGNESIUM, PLASMA | Routin | 07/13/2002 | | Results for this | | | e | 6:20 AM | | procedure are in the | | | | PDT | | results section. | + +--------+ + + + | DIFFERENTIAL | Routin | 07/12/2002 | | Results for this | | | e | 5:45 AM | | procedure are in the | | | | PDT | | results section. | + +--------+ + + + | INR | Routin | 07/12/2002 | | Results for this | | | e | 5:45 AM | | procedure are in the | | | | PDT | | results section. | + +--------+ + + + | CBC, WITH | Routin | 07/12/2002 | | Results for this | | DIFFERENTIAL | e | 5:45 AM | | procedure are in the | | | | PDT | | results section. | + +--------+ + + + | BASIC METABOLIC SET | Routin | 07/12/2002 | | Results for this | | (NA, K, CL, TCO2, | e | 5:45 AM | | procedure are in the | | BUN, CR, GLU, CA) | | PDT | | results section. | + +--------+ + + + | PHOSPHORUS, PLASMA | Routin | 07/12/2002 | | Results for this | | | e | 5:45 AM | | procedure are in the | | | | PDT | | results section. | + +--------+ + + + | MAGNESIUM, PLASMA | Routin | 07/12/2002 | | Results for this | | | e | 5:45 AM | | procedure are in the | | | | PDT | | results section. | + +--------+ + + + | CATH PLACEMENT | Routin | 07/11/2002 | | Results for this | | | e | 4:00 PM | | procedure are in the | | | | PDT | | results section. | + +--------+ + + + | X-RAY CHEST 2 VIEW | Routin | 07/11/2002 | | Results for this | | | e | 8:48 AM | | procedure are in the | | | | PDT | | results section. | + +--------+ + + + | DIFFERENTIAL | Routin | 07/11/2002 | | Results for this | | | e | 7:42 AM | | procedure are in the | | | | PDT | | results section. | + +--------+ + + + | INR | Routin | 07/11/2002 | | Results for this | | | e | 7:42 AM | | procedure are in the | | | | PDT | | results section. | + +--------+ + + + | CBC, WITH | Routin | 07/11/2002 | | Results for this | | DIFFERENTIAL | e | 7:42 AM | | procedure are in the | | | | PDT | | results section. | + +--------+ + + + | BASIC METABOLIC SET | Routin | 07/11/2002 | | Results for this | | (NA, K, CL, TCO2, | e | 7:42 AM | | procedure are in the | | BUN, CR, GLU, CA) | | PDT | | results section. | + +--------+ + + + | APTT (ACT. PART. | Routin | 07/11/2002 | | Results for this | | THROMBO TIME) | e | 7:42 AM | | procedure are in the | | | | PDT | | results section. | + +--------+ + + + | PHOSPHORUS, PLASMA | Routin | 07/11/2002 | | Results for this | | | e | 7:42 AM | | procedure are in the | | | | PDT | | results section. | + +--------+ + + + | MAGNESIUM, PLASMA | Routin | 07/11/2002 | | Results for this | | | e | 7:42 AM | | procedure are in the | | | | PDT | | results section. | + +--------+ + + + | BLOOD GASES, | Routin | 07/10/2002 | | Results for this | | ARTERIAL - LAB | e | 11:00 PM | | procedure are in the | | | | PDT | | results section. | + +--------+ + + + | INR | Urgent | 07/09/2002 | | Results for this | | | | 3:00 AM | | procedure are in the | | | | PDT | | results section. | + +--------+ + + + | BASIC METABOLIC SET | Urgent | 07/09/2002 | | Results for this | | (NA, K, CL, TCO2, | | 3:00 AM | | procedure are in the | | BUN, CR, GLU, CA) | | PDT | | results section. | + +--------+ + + + | CBC ONLY | Urgent | 07/09/2002 | | Results for this | | | | 3:00 AM | | procedure are in the | | | | PDT | | results section. | + +--------+ + + + | APTT (ACT. PART. | Urgent | 07/09/2002 | | Results for this | | THROMBO TIME) | | 3:00 AM | | procedure are in the | | | | PDT | | results section. | + +--------+ + + + | PHOSPHORUS, PLASMA | Urgent | 07/09/2002 | | Results for this | | | | 3:00 AM | | procedure are in the | | | | PDT | | results section. | + +--------+ + + + | CALCIUM, IONIZED, | Urgent | 07/09/2002 | | Results for this | | WHOLE BLOOD | | 3:00 AM | | procedure are in the | | | | PDT | | results section. | + +--------+ + + + | BLOOD GASES, | Urgent | 07/09/2002 | | Results for this | | ARTERIAL - LAB | | 3:00 AM | | procedure are in the | | | | PDT | | results section. | + +--------+ + + + | MAGNESIUM, PLASMA | Urgent | 07/09/2002 | | Results for this | | | | 3:00 AM | | procedure are in the | | | | PDT | | results section. | + +--------+ + + + | BLOOD GASES, | Urgent | 07/08/2002 | | Results for this | | ARTERIAL - LAB | | 11:29 PM | | procedure are in the | | | | PDT | | results section. | + +--------+ + + + | CBC ONLY | Urgent | 07/08/2002 | | Results for this | | | | 10:10 PM | | procedure are in the | | | | PDT | | results section. | + +--------+ + + + | BASIC METABOLIC SET | Urgent | 07/08/2002 | | Results for this | | (NA, K, CL, TCO2, | | 9:50 PM | | procedure are in the | | BUN, CR, GLU, CA) | | PDT | | results section. | + +--------+ + + + | CBC ONLY | Urgent | 07/08/2002 | | Results for this | | | | 9:50 PM | | procedure are in the | | | | PDT | | results section. | + +--------+ + + + | APTT (ACT. PART. | Urgent | 07/08/2002 | | Results for this | | THROMBO TIME) | | 9:50 PM | | procedure are in the | | | | PDT | | results section. | + +--------+ + + + | PHOSPHORUS, PLASMA | Urgent | 07/08/2002 | | Results for this | | | | 9:50 PM | | procedure are in the | | | | PDT | | results section. | + +--------+ + + + | CALCIUM, IONIZED, | Urgent | 07/08/2002 | | Results for this | | WHOLE BLOOD | | 9:50 PM | | procedure are in the | | | | PDT | | results section. | + +--------+ + + + | BLOOD GASES, | Routin | 07/08/2002 | | Results for this | | ARTERIAL - LAB | e | 9:50 PM | | procedure are in the | | | | PDT | | results section. | + +--------+ + + + | MAGNESIUM, PLASMA | Urgent | 07/08/2002 | | Results for this | | | | 9:50 PM | | procedure are in the | | | | PDT | | results section. | + +--------+ + + + | CULTURE, TISSUE | Routin | 07/08/2002 | | Results for this | | | e | 7:25 PM | | procedure are in the | | | | PDT | | results section. | + +--------+ + + + | GENTAMYCIN(TOX) | Urgent | 07/08/2002 | | Results for this | | | | 1:37 PM | | procedure are in the | | | | PDT | | results section. | + +--------+ + + + | GENTAMYCIN(TOX) | Routin | 07/08/2002 | | Results for this | | | e | 12:00 PM | | procedure are in the | | | | PDT | | results section. | + +--------+ + + + | DIFFERENTIAL | Urgent | 07/08/2002 | | Results for this | | | | 7:40 AM | | procedure are in the | | | | PDT | | results section. | + +--------+ + + + | CBC, WITH | Urgent | 07/08/2002 | | Results for this | | DIFFERENTIAL | | 7:40 AM | | procedure are in the | | | | PDT | | results section. | + +--------+ + + + | BASIC METABOLIC SET | Urgent | 07/08/2002 | | Results for this | | (NA, K, CL, TCO2, | | 7:40 AM | | procedure are in the | | BUN, CR, GLU, CA) | | PDT | | results section. | + +--------+ + + + | PHOSPHORUS, PLASMA | Urgent | 07/08/2002 | | Results for this | | | | 7:40 AM | | procedure are in the | | | | PDT | | results section. | + +--------+ + + + | MAGNESIUM, PLASMA | Urgent | 07/08/2002 | | Results for this | | | | 7:40 AM | | procedure are in the | | | | PDT | | results section. | + +--------+ + + + | US KIDNEY BILATERAL | Routin | 07/07/2002 | | Results for this | | LTD | e | 9:00 AM | | procedure are in the | | | | PDT | | results section. | + +--------+ + + + | BASIC METABOLIC SET | Routin | 07/07/2002 | | Results for this | | (NA, K, CL, TCO2, | e | 6:00 AM | | procedure are in the | | BUN, CR, GLU, CA) | | PDT | | results section. | + +--------+ + + + | CBC ONLY | Routin | 07/07/2002 | | Results for this | | | e | 6:00 AM | | procedure are in the | | | | PDT | | results section. | + +--------+ + + + | CULTURE, BLOOD BACTI | Routin | 07/06/2002 | | Results for this | | & YEAST | e | 7:00 AM | | procedure are in the | | | | PDT | | results section. | + +--------+ + + + | BASIC METABOLIC SET | Routin | 07/06/2002 | | Results for this | | (NA, K, CL, TCO2, | e | 6:55 AM | | procedure are in the | | BUN, CR, GLU, CA) | | PDT | | results section. | + +--------+ + + + | CBC ONLY | Routin | 07/06/2002 | | Results for this | | | e | 6:55 AM | | procedure are in the | | | | PDT | | results section. | + +--------+ + + + | CULTURE, BLOOD BACTI | Routin | 07/06/2002 | | Results for this | | & YEAST | e | 6:55 AM | | procedure are in the | | | | PDT | | results section. | + +--------+ + + + | GENTAMYCIN(TOX) | Routin | 07/05/2002 | | Results for this | | | e | 11:40 PM | | procedure are in the | | | | PDT | | results section. | + +--------+ + + + | VANCOMYCIN(TOX) | Routin | 07/05/2002 | | Results for this | | | e | 9:05 PM | | procedure are in the | | | | PDT | | results section. | + +--------+ + + + | COMPLETE METABOLIC | Routin | 07/05/2002 | | Results for this | | SET | e | 11:20 AM | | procedure are in the | | (NA,K,CL,CO2,BUN,CRE | | PDT | | results section. | | AT,GLUC,CA,AST,ALT,B | | | | | | REMA TOTAL,ALK | | | | | | PHOS,ALB,PROT TOTAL) | | | | | + +--------+ + + + | COMPLETE METABOLIC | Routin | 07/05/2002 | | Results for this | | SET | e | 8:55 AM | | procedure are in the | | (NA,K,CL,CO2,BUN,CRE | | PDT | | results section. | | AT,GLUC,CA,AST,ALT,B | | | | | | REMA TOTAL,ALK | | | | | | PHOS,ALB,PROT TOTAL) | | | | | + +--------+ + + + | CULTURE, BLOOD BACTI | Routin | 07/05/2002 | | Results for this | | & YEAST | e | 7:20 AM | | procedure are in the | | | | PDT | | results section. | + +--------+ + + + | EXTENDED DIFF | Routin | 07/05/2002 | | Results for this | | | e | 7:10 AM | | procedure are in the | | | | PDT | | results section. | + +--------+ + + + | MANUAL DIFFERENTIAL | Routin | 07/05/2002 | | Results for this | | | e | 7:10 AM | | procedure are in the | | | | PDT | | results section. | + +--------+ + + + | DIFFERENTIAL | Routin | 07/05/2002 | | Results for this | | | e | 7:10 AM | | procedure are in the | | | | PDT | | results section. | + +--------+ + + + | CBC, WITH | Routin | 07/05/2002 | | Results for this | | DIFFERENTIAL | e | 7:10 AM | | procedure are in the | | | | PDT | | results section. | + +--------+ + + + | COMPLETE METABOLIC | Routin | 07/05/2002 | | Results for this | | SET | e | 7:10 AM | | procedure are in the | | (NA,K,CL,CO2,BUN,CRE | | PDT | | results section. | | AT,GLUC,CA,AST,ALT,B | | | | | | REMA TOTAL,ALK | | | | | | PHOS,ALB,PROT TOTAL) | | | | | + +--------+ + + + | CULTURE, BLOOD BACTI | Routin | 07/05/2002 | | Results for this | | & YEAST | e | 7:10 AM | | procedure are in the | | | | PDT | | results section. | + +--------+ + + + | VANCOMYCIN(TOX) | Routin | 07/04/2002 | | Results for this | | | e | 8:40 PM | | procedure are in the | | | | PDT | | results section. | + +--------+ + + + | BLOOD BANK PRODUCT | Routin | 07/04/2002 | | Results for this | | | e | 4:15 PM | | procedure are in the | | | | PDT | | results section. | + +--------+ + + + | BLOOD BANK PRODUCT | Routin | 07/04/2002 | | Results for this | | | e | 4:15 PM | | procedure are in the | | | | PDT | | results section. | + +--------+ + + + | TYPE AND CROSSMATCH | Routin | 07/04/2002 | | Results for this | | | e | 4:15 PM | | procedure are in the | | | | PDT | | results section. | + +--------+ + + + | C-REACTIVE PROTEIN | Routin | 07/04/2002 | | Results for this | | | e | 1:00 PM | | procedure are in the | | | | PDT | | results section. | + +--------+ + + + | SEDIMENTATION RATE | Routin | 07/04/2002 | | Results for this | | | e | 1:00 PM | | procedure are in the | | | | PDT | | results section. | + +--------+ + + + | GGT, PLASMA | Routin | 07/04/2002 | | Results for this | | | e | 1:00 PM | | procedure are in the | | | | PDT | | results section. | + +--------+ + + + | TYPE AND CROSSMATCH | Routin | 07/04/2002 | | Results for this | | | e | 12:10 PM | | procedure are in the | | | | PDT | | results section. | + +--------+ + + + | C-REACTIVE PROTEIN | Routin | 07/04/2002 | | Results for this | | | e | 11:04 AM | | procedure are in the | | | | PDT | | results section. | + +--------+ + + + | CULTURE, BLOOD BACTI | Routin | 07/04/2002 | | Results for this | | & YEAST | e | 7:20 AM | | procedure are in the | | | | PDT | | results section. | + +--------+ + + + | DIFFERENTIAL | Routin | 07/04/2002 | | Results for this | | | e | 7:15 AM | | procedure are in the | | | | PDT | | results section. | + +--------+ + + + | INR | Routin | 07/04/2002 | | Results for this | | | e | 7:15 AM | | procedure are in the | | | | PDT | | results section. | + +--------+ + + + | CBC, WITH | Routin | 07/04/2002 | | Results for this | | DIFFERENTIAL | e | 7:15 AM | | procedure are in the | | | | PDT | | results section. | + +--------+ + + + | LIVER SET | Routin | 07/04/2002 | | Results for this | | (AST,ALT,BILI | e | 7:15 AM | | procedure are in the | | TOTAL,BILI | | PDT | | results section. | | DIRECT,ALK | | | | | | PHOS,ALB,PROT TOTAL) | | | | | + +--------+ + + + | BASIC METABOLIC SET | Routin | 07/04/2002 | | Results for this | | (NA, K, CL, TCO2, | e | 7:15 AM | | procedure are in the | | BUN, CR, GLU, CA) | | PDT | | results section. | + +--------+ + + + | CULTURE, BLOOD BACTI | Routin | 07/04/2002 | | Results for this | | & YEAST | e | 7:15 AM | | procedure are in the | | | | PDT | | results section. | + +--------+ + + + | GENTAMYCIN(TOX) | Routin | 07/04/2002 | | Results for this | | | e | 2:10 AM | | procedure are in the | | | | PDT | | results section. | + +--------+ + + + | GENTAMYCIN(TOX) | Routin | 07/03/2002 | | Results for this | | | e | 8:23 PM | | procedure are in the | | | | PDT | | results section. | + +--------+ + + + | VANCOMYCIN(TOX) | Routin | 07/03/2002 | | Results for this | | | e | 8:23 PM | | procedure are in the | | | | PDT | | results section. | + +--------+ + + + | URINE CHEMISTRY | Routin | 07/03/2002 | | Results for this | | MASTER | e | 1:35 PM | | procedure are in the | | | | PDT | | results section. | + +--------+ + + + | TOTAL RESULTS | Routin | 07/03/2002 | | Results for this | | FOR,URINE | e | 1:35 PM | | procedure are in the | | | | PDT | | results section. | + +--------+ + + + | SODIUM TOTAL, URINE | Routin | 07/03/2002 | | Results for this | | | e | 1:35 PM | | procedure are in the | | | | PDT | | results section. | + +--------+ + + + | UA, DIPSTICK ONLY | Routin | 07/03/2002 | | Results for this | | | e | 1:35 PM | | procedure are in the | | | | PDT | | results section. | + +--------+ + + + | URINE, MICROSCOPIC | Routin | 07/03/2002 | | Results for this | | EXAM | e | 1:35 PM | | procedure are in the | | | | PDT | | results section. | + +--------+ + + + | EOSINOPHILS, URINE | Routin | 07/03/2002 | | Results for this | | (SPOT) | e | 1:35 PM | | procedure are in the | | | | PDT | | results section. | + +--------+ + + + | CULTURE, URINE BACTI | Routin | 07/03/2002 | | Results for this | | | e | 1:35 PM | | procedure are in the | | | | PDT | | results section. | + +--------+ + + + | CREATININE, URINE | Routin | 07/03/2002 | | Results for this | | | e | 1:35 PM | | procedure are in the | | | | PDT | | results section. | + +--------+ + + + | X-RAY SPINE | Routin | 07/03/2002 | | Results for this | | LUMBOSACRAL 2 VIEWS | e | 12:19 PM | | procedure are in the | | | | PDT | | results section. | + +--------+ + + + | X-RAY HIP 2 VIEWS | Routin | 07/03/2002 | | Results for this | | RIGHT | e | 12:19 PM | | procedure are in the | | | | PDT | | results section. | + +--------+ + + + | CULTURE, BLOOD BACTI | Routin | 07/03/2002 | | Results for this | | & YEAST | e | 11:35 AM | | procedure are in the | | | | PDT | | results section. | + +--------+ + + + | CULTURE, BLOOD BACTI | Routin | 07/03/2002 | | Results for this | | & YEAST | e | 11:10 AM | | procedure are in the | | | | PDT | | results section. | + +--------+ + + + | CULTURE, BLOOD BACTI | Routin | 07/03/2002 | | Results for this | | & YEAST | e | 10:01 AM | | procedure are in the | | | | PDT | | results section. | + +--------+ + + + | EXTENDED DIFF | Routin | 07/03/2002 | | Results for this | | | e | 7:20 AM | | procedure are in the | | | | PDT | | results section. | + +--------+ + + + | MANUAL DIFFERENTIAL | Routin | 07/03/2002 | | Results for this | | | e | 7:20 AM | | procedure are in the | | | | PDT | | results section. | + +--------+ + + + | DIFFERENTIAL | Routin | 07/03/2002 | | Results for this | | | e | 7:20 AM | | procedure are in the | | | | PDT | | results section. | + +--------+ + + + | CBC, WITH | Routin | 07/03/2002 | | Results for this | | DIFFERENTIAL | e | 7:20 AM | | procedure are in the | | | | PDT | | results section. | + +--------+ + + + | HOMOCYSTEINE TOTAL, | Routin | 07/03/2002 | | Results for this | | PLASMA | e | 7:20 AM | | procedure are in the | | | | PDT | | results section. | + +--------+ + + + | BASIC METABOLIC SET | Routin | 07/03/2002 | | Results for this | | (NA, K, CL, TCO2, | e | 7:20 AM | | procedure are in the | | BUN, CR, GLU, CA) | | PDT | | results section. | + +--------+ + + + | METHYLMALONIC ACID, | Routin | 07/03/2002 | | Results for this | | SERUM | e | 7:20 AM | | procedure are in the | | | | PDT | | results section. | + +--------+ + + + | RETICULOCYTE COUNT, | Routin | 07/03/2002 | | Results for this | | BLOOD | e | 7:20 AM | | procedure are in the | | | | PDT | | results section. | + +--------+ + + + | FERRITIN | Routin | 07/03/2002 | | Results for this | | | e | 7:20 AM | | procedure are in the | | | | PDT | | results section. | + +--------+ + + + | X-RAY CHEST 2 VIEW | Routin | 07/03/2002 | | Results for this | | | e | 1:30 AM | | procedure are in the | | | | PDT | | results section. | + +--------+ + + + | CULTURE, BLOOD BACTI | Routin | 07/03/2002 | | Results for this | | & YEAST | e | 12:01 AM | | procedure are in the | | | | PDT | | results section. | + +--------+ + + + | BASIC METABOLIC SET | Routin | 07/02/2002 | | Results for this | | (NA, K, CL, TCO2, | e | 11:30 PM | | procedure are in the | | BUN, CR, GLU, CA) | | PDT | | results section. | + +--------+ + + + | URINE, MICROSCOPIC | Routin | 07/02/2002 | | Results for this | | EXAM | e | 11:30 PM | | procedure are in the | | | | PDT | | results section. | + +--------+ + + + | CBC ONLY | Routin | 07/02/2002 | | Results for this | | | e | 11:30 PM | | procedure are in the | | | | PDT | | results section. | + +--------+ + + + | CULTURE, BLOOD BACTI | Routin | 07/02/2002 | | Results for this | | & YEAST | e | 11:30 PM | | procedure are in the | | | | PDT | | results section. | + +--------+ + + + | D-DIMER, (PE OR DIC) | Routin | 07/02/2002 | | Results for this | | | e | 11:30 PM | | procedure are in the | | | | PDT | | results section. | + +--------+ + + + | PHOSPHORUS, PLASMA | Routin | 07/02/2002 | | Results for this | | | e | 11:30 PM | | procedure are in the | | | | PDT | | results section. | + +--------+ + + + | MAGNESIUM, PLASMA | Routin | 07/02/2002 | | Results for this | | | e | 11:30 PM | | procedure are in the | | | | PDT | | results section. | + +--------+ + + + documented in this encounter Results PROTHROMBIN TIME (07/13/2002 11:15 AM PDT) + + + + + + | Component | Value | Ref Range | Performed | Pathologist | | | | | At | Signature | + + + + + + | INR | 2.31Comment: | INR | [facility] | | | | PT INR Therapeutic | | DEPARTMENT | | | | ranges for full | | OF | | | | anticoagulation: | | PATHOLOGY | | | | INR for | | | | | | Venous Thromboembolism | | | | | | | | | | | | (2.0-3.0)INR | | | | | | INR for most | | | | | | patients with mech. | | | | | | valves (2.5-3.5)INR | | | | + + + + + + + + | Specimen | + + | | + + + + + | Narrative | Performed At | + + + | Ordered by ELBERT Doyle method and Reference Ranges | [facility] | | effective 05/21/02 for : APTT, Thrombin Time, Fibrinogen, and | DEPARTMENT OF | | [facility]. | PATHOLOGY | + + + + + + + + | Performing | Address | City/State/Zipcode | Phone Number | | Organization | | | | + + + + + | [facility] DEPARTMENT | [facility] [facility] | [place] [address] | | | PATHOLOGY | [address] | | | + + + + + | [facility] DEPARTMENT OF | [address] [facility] [address] | [place] [address] | | | PATHOLOGY | [address] | | | + + + + + APTT (ACT. PART. THROMBO TIME) (07/13/2002 11:15 AM PDT) + + + + + + | Component | Value | Ref Range | Performed | Pathologist | | | | | At | Signature | + + + + + + | APTT | 60.4Comment: | seconds | [facility] | | | | APTT Therapeutic Range | | DEPARTMENT | | | | | | OF | | | | | | PATHOLOGY | | | | (75-120)sec | | | | | | Heparin levels | | | | | | of 0.35-0.7 U/mL | | | | + + + + + + + + | Specimen | + + | | + + + + + | Narrative | Performed At | + + + | Ordered by ELBERT EDWARDS New method and Reference Ranges | [facility] | | effective 05/21/02 for : APTT, Thrombin Time, Fibrinogen, and | DEPARTMENT OF | | [facility]. | PATHOLOGY | + + + + + + + + | Performing | Address | City/State/Zipcode | Phone Number | | Organization | | | | + + + + + | [facility] DEPARTMENT OF | [address] | [place] [address] | | | PATHOLOGY | [address] | | | + + + + + | [facility] DEPARTMENT | [address] | [place] [address] | | | PATHOLOGY | [address] | | | + + + + + DIFFERENTIAL (07/13/2002 6:20 AM PDT) + + + + + + | Component | Value | Ref Range | Performed | Pathologist | | | | | At | Signature | + + + + + + | NEUTROPHIL | 80 (H) | 50 - 70 % | [facility] | | | % | | | DEPARTMENT | | | | | | OF | | | | | | PATHOLOGY | | + + + + + + | LYMPHOCYTE | 10 (L) | 18 - 42 % | [facility] | | | % | | | DEPARTMENT | | | | | | OF | | | | | | PATHOLOGY | | + + + + + + | MONOCYTE % | 8 | 2 - 8 % | [facility] | | | | | | DEPARTMENT | | | | | | OF | | | | | | PATHOLOGY | | + + + + + + | EOS % | 2 | 1 - 3 % | [facility] | | | | | | DEPARTMENT | | | | | | OF | | | | | | PATHOLOGY | | + + + + + + | BASO % | 0 | <3 % | [facility] | | | | | | DEPARTMENT | | | | | | OF | | | | | | PATHOLOGY | | + + + + + + | NEUTROPHIL | 10.2 (H) | 1.8 - 7.7 K/cu | [facility] | | | # | | mm | DEPARTMENT | | | | | | OF | | | | | | PATHOLOGY | | + + + + + + | LYMPHOCYTE | 1.3 | 1.0 - 4.8 K/cu | [facility] | | | # | | mm | DEPARTMENT | | | | | | OF | | | | | | PATHOLOGY | | + + + + + + | MONOCYTE # | 1.0 (H) | 0.1 - 0.6 K/cu | [facility] | | | | | mm | DEPARTMENT | | | | | | OF | | | | | | PATHOLOGY | | + + + + + + | EOS # | 0.3 | <0.6 K/cu mm | [facility] | | | | | | DEPARTMENT | | | | | | OF | | | | | | PATHOLOGY | | + + + + + + | BASO # | 0.0 | <0.2 | [facility] | | | | | | DEPARTMENT | | | | | | OF | | | | | | PATHOLOGY | | + + + + + + + + | Specimen | + + | | + + + + + | Narrative | Performed At | + + + | Ordered by ELBERT EDWARDS | [facility] | | | DEPARTMENT OF | | | PATHOLOGY | + + + + + + + + | Performing | Address | City/State/Zipcode | Phone Number | | Organization | | | | + + + + + | [facility] DEPARTMENT OF | [address] | [place] [address] | | | PATHOLOGY | [address] | | | + + + + + | [facility] DEPARTMENT | [address] | [place] [address] | | | PATHOLOGY | [address] | | | + + + + + CBC, WITH DIFFERENTIAL (07/13/2002 6:20 AM PDT) + + + + + + | Component | Value | Ref Range | Performed | Pathologist | | | | | At | Signature | + + + + + + | WHITE CELL | 12.7 (H) | 4.4 - 11.0 K/cu | [facility] | | | COUNT | | mm | DEPARTMENT | | | | | | OF | | | | | | PATHOLOGY | | + + + + + + | RED CELL | 2.83 (L) | 4.20 - 5.90 | [facility] | | | COUNT | | M/cu mm | DEPARTMENT | | | | | | OF | | | | | | PATHOLOGY | | + + + + + + | HEMOGLOBIN | 8.2 (L) | 13.0 - 17.5 | [facility] | | | | | g/dL | DEPARTMENT | | | | | | OF | | | | | | PATHOLOGY | | + + + + + + | HEMATOCRIT | 23.7 (L) | 38.0 - 50.4 % | [facility] | | | | | | DEPARTMENT | | | | | | OF | | | | | | PATHOLOGY | | + + + + + + | MCV | 83.5 | 80.0 - 96.0 fL | [facility] | | | | | | DEPARTMENT | | | | | | OF | | | | | | PATHOLOGY | | + + + + + + | MCH | 29.0 | 28.5 - 32.3 pg | [facility] | | | | | | DEPARTMENT | | | | | | OF | | | | | | PATHOLOGY | | + + + + + + | MCHC | 34.7 | 33.4 - 35.5 | [facility] | | | | | g/dL | DEPARTMENT | | | | | | OF | | | | | | PATHOLOGY | | + + + + + + | RDW | 15.2 (H) | 11.5 - 15.0 % | [facility] | | | | | | DEPARTMENT | | | | | | OF | | | | | | PATHOLOGY | | + + + + + + | PLATELET | 414 | K/cu mm | [facility] | | | COUNT | | | DEPARTMENT | | | | | | OF | | | | | | PATHOLOGY | | + + + + + + | MPV | 6.4 (L) | 7.4 - 10.4 fL | [facility] | | | | | | DEPARTMENT | | | | | | OF | | | | | | PATHOLOGY | | + + + + + + | CBC | Final automated | | [facility] | | | COMMENTS | differential report. | | DEPARTMENT | | | | Smear reviewed. | | OF | | | | | | PATHOLOGY | | + + + + + + + + | Specimen | + + | | + + + + + | Narrative | Performed At | + + + | Ordered by ELBERT EDWARDS | [facility] | | | DEPARTMENT OF | | | PATHOLOGY | + + + + + + + + | Performing | Address | City/State/Zipcode | Phone Number | | Organization | | | | + + + + + | [facility] DEPARTMENT OF | [address] | [place] [address] | | | PATHOLOGY | [address] | | | + + + + + | [facility] | [address] | [place] [address] | | | PATHOLOGY | [address] | | | + + + + + BASIC METABOLIC SET (07/13/2002 6:20 AM PDT) + +---------+ + + + | Component | Value | Ref Range | Performed | Pathologist | | | | | At | Signature | + +---------+ + + + | GLUCOSE, | 107 | 65 - 110 mg/dL | [facility] | | | PLASMA | | | DEPARTMENT | | | (LAB) | | | OF | | | | | | PATHOLOGY | | + +---------+ + + + | BUN, PLASMA | 20 | 6 - 20 mg/dL | [facility] | | | (LAB) | | | DEPARTMENT | | | | | | OF | | | | | | PATHOLOGY | | + +---------+ + + + | CREATININE | 1.9 (H) | 0.7 - 1.3 mg/dL | [facility] | | | PLASMA | | | DEPARTMENT | | | (LAB) | | | OF | | | | | | PATHOLOGY | | + +---------+ + + + | SODIUM, | 134 (L) | 136 - 145 | [facility] | | | PLASMA | | mmol/L | DEPARTMENT | | | (LAB) | | | OF | | | | | | PATHOLOGY | | + +---------+ + + + | POTASSIUM, | 3.7 | 3.5 - 5.1 | [facility] | | | PLASMA | | mmol/L | DEPARTMENT | | | (LAB) | | | OF | | | | | | PATHOLOGY | | + +---------+ + + + | CHLORIDE, | 103 | 98 - 107 mmol/L | [facility] | | | PLASMA | | | DEPARTMENT | | | (LAB) | | | OF | | | | | | PATHOLOGY | | + +---------+ + + + | TOTAL CO2, | 27 | 23 - 29 mmol/L | [facility] | | | PLASMA | | | DEPARTMENT | | | (LAB) | | | OF | | | | | | PATHOLOGY | | + +---------+ + + + | CALCIUM, | 7.9 (L) | 8.5 - 10.5 | [facility] | | | PLASMA | | mg/dL | DEPARTMENT | | | (LAB) | | | OF | | | | | | PATHOLOGY | | + +---------+ + + + + + | Specimen | + + | | + + + + + | Narrative | Performed At | + + + | Ordered by ELBERT EDWARDS | [facility] | | | DEPARTMENT OF | | | PATHOLOGY | + + + + + + + + | Performing | Address | City/State/Zipcode | Phone Number | | Organization | | | | + + + + + | [facility] DEPARTMENT OF | [address] | [place] [address] | | | PATHOLOGY | [address] | | | + + + + + | [facility] DEPARTMENT | [address] | [place] [address] | | | PATHOLOGY | [address] | | | + + + + + MAGNESIUM, PLASMA (07/13/2002 6:20 AM PDT) + +-------+ + + + | Component | Value | Ref Range | Performed | Pathologist | | | | | At | Signature | + +-------+ + + + | MAGNESIUM,P | 2.1 | 1.8 - 2.5 mg/dL | [facility] | | | LASMA | | | DEPARTMENT | | | | | | OF | | | | | | PATHOLOGY | | + +-------+ + + + + + | Specimen | + + | | + + + + + | Narrative | Performed At | + + + | Ordered by ELBERT EDWARDS | [facility] | | | DEPARTMENT OF | | | PATHOLOGY | + + + + + + + + | Performing | Address | City/State/Zipcode | Phone Number | | Organization | | | | + + + + + | [facility] DEPARTMENT OF | [address] | [place] [address] | | | PATHOLOGY | [address] | | | + + + + + | [facility] DEPARTMENT OF | [address] | [place] [address] | | | PATHOLOGY | [address] | | | + + + + + PHOSPHORUS, PLASMA (07/13/2002 6:20 AM PDT) + +-------+ + + + | Component | Value | Ref Range | Performed | Pathologist | | | | | At | Signature | + +-------+ + + + | PHOSPHORUS, | 3.6 | 2.4 - 4.7 mg/dL | [facility] | | | PLASMA | | | DEPARTMENT | | | (LAB) | | | OF | | | | | | PATHOLOGY | | + +-------+ + + + + + | Specimen | + + | | + + + + + | Narrative | Performed At | + + + | Ordered by ELBERT EDWARDS | [facility] | | | DEPARTMENT OF | | | PATHOLOGY | + + + + + + + + | Performing | Address | City/State/Zipcode | Phone Number | | Organization | | | | + + + + + | [facility] DEPARTMENT OF | [address] | [place] [address] | | | PATHOLOGY | [address] | | | + + + + + | [facility] DEPARTMENT OF | [address] | [place] [address] | | | PATHOLOGY | [address] | | | + + + + + DIFFERENTIAL (07/12/2002 5:45 AM PDT) + + + + + + | Component | Value | Ref Range | Performed | Pathologist | | | | | At | Signature | + + + + + + | NEUTROPHIL | 83 (H) | 50 - 70 % | [facility] | | | % | | | DEPARTMENT | | | | | | OF | | | | | | PATHOLOGY | | + + + + + + | LYMPHOCYTE | 7 (L) | 18 - 42 % | [facility] | | | % | | | DEPARTMENT | | | | | | OF | | | | | | PATHOLOGY | | + + + + + + | MONOCYTE % | 8 | 2 - 8 % | [facility] | | | | | | DEPARTMENT | | | | | | OF | | | | | | PATHOLOGY | | + + + + + + | EOS % | 1 | 1 - 3 % | [facility] | | | | | | DEPARTMENT | | | | | | OF | | | | | | PATHOLOGY | | + + + + + + | BASO % | 0 | <3 % | [facility] | | | | | | DEPARTMENT | | | | | | OF | | | | | | PATHOLOGY | | + + + + + + | NEUTROPHIL | 11.5 (H) | 1.8 - 7.7 K/cu | [facility] | | | # | | mm | DEPARTMENT | | | | | | OF | | | | | | PATHOLOGY | | + + + + + + | LYMPHOCYTE | 1.0 | 1.0 - 4.8 K/cu | [facility] | | | # | | mm | DEPARTMENT | | | | | | OF | | | | | | PATHOLOGY | | + + + + + + | MONOCYTE # | 1.1 (H) | 0.1 - 0.6 K/cu | [facility] | | | | | mm | DEPARTMENT | | | | | | OF | | | | | | PATHOLOGY | | + + + + + + | EOS # | 0.1 | <0.6 K/cu mm | [facility] | | | | | | DEPARTMENT | | | | | | OF | | | | | | PATHOLOGY | | + + + + + + | BASO # | 0.0 | <0.2 | [facility] | | | | | | DEPARTMENT | | | | | | OF | | | | | | PATHOLOGY | | + + + + + + + + | Specimen | + + | | + + + + + | Narrative | Performed At | + + + | Ordered by ELBERT EDWARDS | [facility] | | | DEPARTMENT OF | | | PATHOLOGY | + + + + + + + + | Performing | Address | City/State/Zipcode | Phone Number | | Organization | | | | + + + + + | [facility] DEPARTMENT OF | [address] | [place] [address] | | | PATHOLOGY | [address] | | | + + + + + | [facility] | [address] | [place] [address] | | | PATHOLOGY | [address] | | | + + + + + CBC, WITH DIFFERENTIAL (07/12/2002 5:45 AM PDT) + + + + + + | Component | Value | Ref Range | Performed | Pathologist | | | | | At | Signature | + + + + + + | WHITE CELL | 13.8 (H) | 4.4 - 11.0 K/cu | [facility] | | | COUNT | | mm | DEPARTMENT | | | | | | OF | | | | | | PATHOLOGY | | + + + + + + | RED CELL | 2.90 (L) | 4.20 - 5.90 | [facility] | | | COUNT | | M/cu mm | DEPARTMENT | | | | | | OF | | | | | | PATHOLOGY | | + + + + + + | HEMOGLOBIN | 8.4 (L) | 13.0 - 17.5 | [facility] | | | | | g/dL | DEPARTMENT | | | | | | OF | | | | | | PATHOLOGY | | + + + + + + | HEMATOCRIT | 24.3 (L) | 38.0 - 50.4 % | [facility] | | | | | | DEPARTMENT | | | | | | OF | | | | | | PATHOLOGY | | + + + + + + | MCV | 83.9 | 80.0 - 96.0 fL | [facility] | | | | | | DEPARTMENT | | | | | | OF | | | | | | PATHOLOGY | | + + + + + + | MCH | 28.9 | 28.5 - 32.3 pg | [facility] | | | | | | DEPARTMENT | | | | | | OF | | | | | | PATHOLOGY | | + + + + + + | MCHC | 34.4 | 33.4 - 35.5 | [facility] | | | | | g/dL | DEPARTMENT | | | | | | OF | | | | | | PATHOLOGY | | + + + + + + | RDW | 16.0 (H) | 11.5 - 15.0 % | [facility] | | | | | | DEPARTMENT | | | | | | OF | | | | | | PATHOLOGY | | + + + + + + | PLATELET | 347 | K/cu mm | [facility] | | | COUNT | | | DEPARTMENT | | | | | | OF | | | | | | PATHOLOGY | | + + + + + + | MPV | 6.8 (L) | 7.4 - 10.4 fL | [facility] | | | | | | DEPARTMENT | | | | | | OF | | | | | | PATHOLOGY | | + + + + + + | CBC | Final automated | | [facility] | | | COMMENTS | differential report. | | DEPARTMENT | | | | Smear reviewed. | | OF | | | | | | PATHOLOGY | | + + + + + + + + | Specimen | + + | | + + + + + | Narrative | Performed At | + + + | Ordered by ELBERT EDWARDS | [facility] | | | DEPARTMENT OF | | | PATHOLOGY | + + + + + + + + | Performing | Address | City/State/Zipcode | Phone Number | | Organization | | | | + + + + + | [facility] | [address] | [place] [address] | | | PATHOLOGY | [address] | | | + + + + + | [facility] | [address] | [place] [address] | | | PATHOLOGY | [address] | | | + + + + + PROTHROMBIN TIME (07/12/2002 5:45 AM PDT) + + + + + + | Component | Value | Ref Range | Performed | Pathologist | | | | | At | Signature | + + + + + + | INR | 1.43Comment: | INR | [facility] | | | | PT INR Therapeutic | | DEPARTMENT | | | | ranges for full | | OF | | | | anticoagulation: | | PATHOLOGY | | | | INR for | | | | | | Venous Thromboembolism | | | | | | | | | | | | (2.0-3.0)INR | | | | | | INR for most | | | | | | patients with mech. | | | | | | valves (2.5-3.5)INR | | | | + + + + + + + + | Specimen | + + | | + + + + + | Narrative | Performed At | + + + | Ordered by ELBERT EDWARDS New method and Reference Ranges | [facility] | | effective 05/21/02 for : APTT, Thrombin Time, Fibrinogen, and | DEPARTMENT OF | | D-Dimer. | PATHOLOGY | + + + + + + + + | Performing | Address | City/State/Zipcode | Phone Number | | Organization | | | | + + + + + | [facility] DEPARTMENT OF | [address] | [place] [address] | | | PATHOLOGY | [address] | | | + + + + + | [facility] DEPARTMENT OF | [address] [place] [address] | [place] [address] | | | PATHOLOGY | [address] | | | + + + + + BASIC METABOLIC SET (07/12/2002 5:45 AM PDT) + +---------+ + + + | Component | Value | Ref Range | Performed | Pathologist | | | | | At | Signature | + +---------+ + + + | GLUCOSE, | 112 (H) | 65 - 110 mg/dL | [facility] | | | PLASMA | | | DEPARTMENT | | | (LAB) | | | OF | | | | | | PATHOLOGY | | + +---------+ + + + | BUN, PLASMA | 20 | 6 - 20 mg/dL | [facility] | | | (LAB) | | | DEPARTMENT | | | | | | OF | | | | | | PATHOLOGY | | + +---------+ + + + | CREATININE | 2.1 (H) | 0.7 - 1.3 mg/dL | [facility] | | | PLASMA | | | DEPARTMENT | | | (LAB) | | | OF | | | | | | PATHOLOGY | | + +---------+ + + + | SODIUM, | 135 (L) | 136 - 145 | [facility] | | | PLASMA | | mmol/L | DEPARTMENT | | | (LAB) | | | OF | | | | | | PATHOLOGY | | + +---------+ + + + | POTASSIUM, | 3.4 (L) | 3.5 - 5.1 | [facility] | | | PLASMA | | mmol/L | DEPARTMENT | | | (LAB) | | | OF | | | | | | PATHOLOGY | | + +---------+ + + + | CHLORIDE, | 97 (L) | 98 - 107 mmol/L | [facility] | | | PLASMA | | | DEPARTMENT | | | (LAB) | | | OF | | | | | | PATHOLOGY | | + +---------+ + + + | TOTAL CO2, | 28 | 23 - 29 mmol/L | [facility] | | | PLASMA | | | DEPARTMENT | | | (LAB) | | | OF | | | | | | PATHOLOGY | | + +---------+ + + + | CALCIUM, | 7.8 (L) | 8.5 - 10.5 | [facility] | | | PLASMA | | mg/dL | DEPARTMENT | | | (LAB) | | | OF | | | | | | PATHOLOGY | | + +---------+ + + + + + | Specimen | + + | | + + + + + | Narrative | Performed At | + + + | Ordered by ELBERT EDWARDS | [facility] | | | DEPARTMENT OF | | | PATHOLOGY | + + + + + + + + | Performing | Address | City/State/Zipcode | Phone Number | | Organization | | | | + + + + + | [facility] DEPARTMENT OF | [address] | [place] [address] | | | PATHOLOGY | [address] | | | + + + + + | [facility]MENT [facility] | [address] | [place] [address] | | | PATHOLOGY | [address] | | | + + + + + MAGNESIUM, PLASMA (07/12/2002 5:45 AM PDT) + +-------+ + + + | Component | Value | Ref Range | Performed | Pathologist | | | | | At | Signature | + +-------+ + + + | MAGNESIUM,P | 2.2 | 1.8 - 2.5 mg/dL | [facility] | | | LASMA | | | DEPARTMENT | | | | | | OF | | | | | | PATHOLOGY | | + +-------+ + + + + + | Specimen | + + | | + + + + + | Narrative | Performed At | + + + | Ordered by ELBERT EDWARDS | [facility] | | | DEPARTMENT OF | | | PATHOLOGY | + + + + + + + + | Performing | Address | City/State/Zipcode | Phone Number | | Organization | | | | + + + + + | [facility] DEPARTMENT OF | [address] | [place] [address] | | | PATHOLOGY | [address] | | | + + + + + | [facility] DEPARTMENT OF | [address] | [place] [address] | | | PATHOLOGY | [address] | | | + + + + + PHOSPHORUS, PLASMA (07/12/2002 5:45 AM PDT) + +---------+ + + + | Component | Value | Ref Range | Performed | Pathologist | | | | | At | Signature | + +---------+ + + + | PHOSPHORUS, | 4.8 (H) | 2.4 - 4.7 mg/dL | [facility] | | | PLASMA | | | DEPARTMENT | | | (LAB) | | | OF | | | | | | PATHOLOGY | | + +---------+ + + + + + | Specimen | + + | | + + + + + | Narrative | Performed At | + + + | Ordered by ELBERT EDWARDS | [facility] | | | DEPARTMENT OF | | | PATHOLOGY | + + + + + + + + | Performing | Address | City/State/Zipcode | Phone Number | | Organization | | | | + + + + + | [facility] DEPARTMENT OF | [address] | [place] [address] | | | PATHOLOGY | [address] | | | + + + + + | [facility] | [address] | [place] [address] | | | PATHOLOGY | [address] | | | + + + + + CATH PLACEMENT (07/11/2002 4:00 PM PDT) + + + + + + | Component | Value | Ref Range | Performed | Pathologist | | | | | At | Signature | + + + + + + | CATH | Radiologist 1: SLIM, | | | | | PLACEMENT | ELBERT OSUNA CATHETER | | | | | | PLACEMENT: 07/11/2002 | | | | | | Dictated: 07/11/2002 | | | | | | REFERRING PHYSICIAN: | | | | | | Elbert | | | | | | Yodit Edwards PRIMARY | | | | | | RN NAVIGATOR: | | | | | | Joselo | | | | | | Yodit Sauer PEDIATRIC CRITICAL CARE NURSE | | | | | | RN NAVIGATOR: | | | | | | Elbert | | | | | | Yodit Houser ATTENDING | | | | | | PHYSICIAN: | | | | | | Elbert Houser | | | | | | Yodit PREOPERATIVE | | | | | | DIAGNOSIS: | | | | | | Endocarditis. | | | | | | POSTOPERATIVE | | | | | | DIAGNOSIS: | | | | | | Endocarditis. LIST OF | | | | | | OPERATIONS:Operation # | | | | | | 1: Ultrasound guided | | | | | | puncture of the right | | | | | | internaljugular | | | | | | vein.Operation # 2: | | | | | | Placement of a 9.5 | | | | | | Croatian dual lumen | | | | | | Groshong catheterin | | | | | | tunnel fashion via right | | | | | | internal jugular vein. | | | | | | INDICATION FOR | | | | | | PROCEDURE: A | | | | | | 52-year-old male with | | | | | | endocarditisstatus post | | | | | | valve placement for long | | | | | | term antibiotics. | | | | | | DESCRIPTION OF | | | | | | PROCEDURE: | | | | | | Written informed consent | | | | | | was obtainedat a PAR | | | | | | conference. The | | | | | | attending physician was | | | | | | present throughoutthe | | | | | | critical portions of the | | | | | | procedure. The | | | | | | patient received | | | | | | nosedation at all. The | | | | | | right neck was prepped | | | | | | and draped in the usual | | | | | | manner. Utilizinglocal | | | | | | anesthetic and | | | | | | Seldinger technique, the | | | | | | right internal | | | | | | jugularvein was accessed | | | | | | with ultrasound | | | | | | guidance. Serial | | | | | | dilatation withplacement | | | | | | of a 9.5 Croatian | | | | | | Groshong catheter. | | | | | | This was then | | | | | | tunneledin retrograde | | | | | | fashion through the | | | | | | right anterior chest | | | | | | wall utilizinglocal | | | | | | anesthetic and sharp and | | | | | | blunt technique. | | | | | | Catheter wasassembled | | | | | | and flushed and sutured | | | | | | in place with nylon | | | | | | sutures. Thepatient | | | | | | tolerated the procedure | | | | | | without incident. | | | | | | FINDINGS: There is a | | | | | | patent wide internal | | | | | | jugular vein. A 9.5 | | | | | | Frenchdual lumen | | | | | | Groshong catheter was | | | | | | placed in tunnel fashion | | | | | | via theright internal | | | | | | jugular vein with the | | | | | | tip in the cavoatrial | | | | | | junction.The catheter is | | | | | | ready for immediate | | | | | | use. IMPRESSION: 1. | | | | | | Patent right internal | | | | | | jugular vein. 2. | | | | | | Placement of a 9.5 | | | | | | Croatian dual lumen | | | | | | Groshong catheter, ready | | | | | | forimmediate use. END | | | | | | OF IMPRESSION: | | | | + + + + + + + + | Specimen | + + | | + + + + + | Narrative | Performed At | + + + | Ordered by ELBERT D. BLIZZARD | | + + + + +---------+ + + | Performing | Address | City/State/Zipcode | Phone Number | | Organization | | | | + +---------+ + + | [facility] DEPARTMENT OF | | | | | RADIOLOGY | | | | + +---------+ + + CHEST 2 VIEW (07/11/2002 8:48 AM PDT) + + + + + + | Component | Value | Ref Range | Performed | Pathologist | | | | | At | Signature | + + + + + + | CHEST, 2 | Radiologist 1: JOSE, | | | | | VIEWS [place] | CACHORRO Nowak, | | | | | STEREO | M.D.-Radiologist 2: | | | | | | CACHORRO GARCIA M.D.TWO | | | | | | VIEWS OF THE CHEST: | | | | | | 07/11/2002 | | | | | | Dictated: 07/11/2002 | | | | | | COMPARISON: | | | | | | 07/09/2002. FINDINGS: | | | | | | AP and lateral chest | | | | | | films submitted. The | | | | | | lung volumes arelow. | | | | | | There is streaky areas | | | | | | of atelectasis at both | | | | | | lung bases. Thereis | | | | | | atelectasis in the left | | | | | | retrocardiac region. | | | | | | Sternotomy wires | | | | | | andmitral valve appear | | | | | | unchanged. No | | | | | | pneumothorax or pleural | | | | | | effusion isidentified. | | | | | | The chest tube | | | | | | overlying the left lower | | | | | | lung is notapparent. | | | | | | IMPRESSION: Low lung | | | | | | volumes with bibasilar | | | | | | atelectasis. END OF | | | | | | IMPRESSION: | | | | + + + + + + + + | Specimen | + + | | + + + + + | Narrative | Performed At | + + + | Ordered by ELBERT EDWARDS | | + + + + +---------+ + + | Performing | Address | City/State/Zipcode | Phone Number | | Organization | | | | + +---------+ + + | [facility] DEPARTMENT OF | | | | | RADIOLOGY | | | | + +---------+ + + DIFFERENTIAL (07/11/2002 7:42 AM PDT) + + + + + + | Component | Value | Ref Range | Performed | Pathologist | | | | | At | Signature | + + + + + + | NEUTROPHIL | 87 (H) | 50 - 70 % | [facility] | | | % | | | DEPARTMENT | | | | | | OF | | | | | | PATHOLOGY | | + + + + + + | LYMPHOCYTE | 5 (L) | 18 - 42 % | [facility] | | | % | | | DEPARTMENT | | | | | | OF | | | | | | PATHOLOGY | | + + + + + + | MONOCYTE % | 7 | 2 - 8 % | [facility] | | | | | | DEPARTMENT | | | | | | OF | | | | | | PATHOLOGY | | + + + + + + | EOS % | 1 | 1 - 3 % | [facility] | | | | | | DEPARTMENT | | | | | | OF | | | | | | PATHOLOGY | | + + + + + + | BASO % | 0 | <3 % | [facility] | | | | | | DEPARTMENT | | | | | | OF | | | | | | PATHOLOGY | | + + + + + + | NEUTROPHIL | 16.2 (H) | 1.8 - 7.7 K/cu | [facility] | | | # | | mm | DEPARTMENT | | | | | | OF | | | | | | PATHOLOGY | | + + + + + + | LYMPHOCYTE | 0.9 (L) | 1.0 - 4.8 K/cu | [facility] | | | # | | mm | DEPARTMENT | | | | | | OF | | | | | | PATHOLOGY | | + + + + + + | MONOCYTE # | 1.3 (H) | 0.1 - 0.6 K/cu | [facility] | | | | | mm | DEPARTMENT | | | | | | OF | | | | | | PATHOLOGY | | + + + + + + | EOS # | 0.2 | <0.6 K/cu mm | [facility] | | | | | | DEPARTMENT | | | | | | OF | | | | | | PATHOLOGY | | + + + + + + | BASO # | 0.0 | <0.2 | [facility] | | | | | | DEPARTMENT | | | | | | OF | | | | | | PATHOLOGY | | + + + + + + + + | Specimen | + + | | + + + + + | Narrative | Performed At | + + + | Ordered by ELBERT EDWARDS | [facility] | | | DEPARTMENT OF | | | PATHOLOGY | + + + + + + + + | Performing | Address | City/State/Zipcode | Phone Number | | Organization | | | | + + + + + | [facility] | [address] | [place] [address] | | | PATHOLOGY | [address] | | | + + + + + | [facility] | [address] | [place] [address] | | | PATHOLOGY | [address] | | | + + + + + CBC, WITH DIFFERENTIAL (07/11/2002 7:42 AM PDT) + + + + + + | Component | Value | Ref Range | Performed | Pathologist | | | | | At | Signature | + + + + + + | WHITE CELL | 18.6 (H) | 4.4 - 11.0 K/cu | [facility] | | | COUNT | | mm | DEPARTMENT | | | | | | OF | | | | | | PATHOLOGY | | + + + + + + | RED CELL | 3.41 (L) | 4.20 - 5.90 | [facility] | | | COUNT | | M/cu mm | DEPARTMENT | | | | | | OF | | | | | | PATHOLOGY | | + + + + + + | HEMOGLOBIN | 9.8 (L) | 13.0 - 17.5 | [facility] | | | | | g/dL | DEPARTMENT | | | | | | OF | | | | | | PATHOLOGY | | + + + + + + | HEMATOCRIT | 28.8 (L) | 38.0 - 50.4 % | [facility] | | | | | | DEPARTMENT | | | | | | OF | | | | | | PATHOLOGY | | + + + + + + | MCV | 84.2 | 80.0 - 96.0 fL | [facility] | | | | | | DEPARTMENT | | | | | | OF | | | | | | PATHOLOGY | | + + + + + + | MCH | 28.8 | 28.5 - 32.3 pg | [facility] | | | | | | DEPARTMENT | | | | | | OF | | | | | | PATHOLOGY | | + + + + + + | MCHC | 34.2 | 33.4 - 35.5 | [facility] | | | | | g/dL | DEPARTMENT | | | | | | OF | | | | | | PATHOLOGY | | + + + + + + | RDW | 15.9 (H) | 11.5 - 15.0 % | [facility] | | | | | | DEPARTMENT | | | | | | OF | | | | | | PATHOLOGY | | + + + + + + | PLATELET | 396 | K/cu mm | [facility] | | | COUNT | | | DEPARTMENT | | | | | | OF | | | | | | PATHOLOGY | | + + + + + + | MPV | 7.0 (L) | 7.4 - 10.4 fL | [facility] | | | | | | DEPARTMENT | | | | | | OF | | | | | | PATHOLOGY | | + + + + + + | CBC | Final automated | | [facility] | | | COMMENTS | differential report. | | DEPARTMENT | | | | Smear reviewed. | | OF | | | | | | PATHOLOGY | | + + + + + + + + | Specimen | + + | | + + + + + | Narrative | Performed At | + + + | Ordered by ELBERT EDWARDS | [facility] | | | DEPARTMENT OF | | | PATHOLOGY | + + + + + + + + | Performing | Address | City/State/Zipcode | Phone Number | | Organization | | | | + + + + + | [facility] DEPARTMENT OF | [address] | [place] [address] | | | PATHOLOGY | [address] | | | + + + + + | [facility] DEPARTMENT [facility] | [address] | [place] [address] | | | PATHOLOGY | [address] | | | + + + + + PROTHROMBIN TIME (07/11/2002 7:42 AM PDT) + + + + + + | Component | Value | Ref Range | Performed | Pathologist | | | | | At | Signature | + + + + + + | INR | 1.45Comment: | INR | [facility] | | | | PT INR Therapeutic | | DEPARTMENT | | | | ranges for full | | OF | | | | anticoagulation: | | PATHOLOGY | | | | INR for | | | | | | Venous Thromboembolism | | | | | | | | | | | | (2.0-3.0)INR | | | | | | INR for most | | | | | | patients with mech. | | | | | | valves (2.5-3.5)INR | | | | + + + + + + + + | Specimen | + + | | + + + + + | Narrative | Performed At | + + + | Ordered by ELBERT EDWARDS New method and Reference Ranges | [facility] | | effective 05/21/02 for : APTT, Thrombin Time, Fibrinogen, and | DEPARTMENT OF | | [facility]. | PATHOLOGY | + + + + + + + + | Performing | Address | City/State/Zipcode | Phone Number | | Organization | | | | + + + + + | [facility] | [address] | [place] [address] | | | PATHOLOGY | [address] | | | + + + + + | [facility] | [address] | [place] [address] | | | PATHOLOGY | [address] | | | + + + + + APTT (ACT. PART. THROMBO TIME) (07/11/2002 7:42 AM PDT) + + + + + + | Component | Value | Ref Range | Performed | Pathologist | | | | | At | Signature | + + + + + + | APTT | 41.7Comment: | seconds | [facility] | | | | APTT Therapeutic Range | | DEPARTMENT | | | | | | OF | | | | | | PATHOLOGY | | | | (75-120)sec | | | | | | Heparin levels | | | | | | of 0.35-0.7 U/mL | | | | + + + + + + + + | Specimen | + + | | + + + + + | Narrative | Performed At | + + + | Ordered by ELBERT EDWARDS New method and Reference Ranges | [facility] | | effective 05/21/02 for : APTT, Thrombin Time, Fibrinogen, and | DEPARTMENT OF | | [facility]-Dimer. | PATHOLOGY | + + + + + + + + | Performing | Address | City/State/Zipcode | Phone Number | | Organization | | | | + + + + + | [facility] DEPARTMENT OF | [address] | [place] [address] | | | PATHOLOGY | [address] | | | + + + + + | [facility] DEPARTMENT OF | [facility] | [place] [address] | | | PATHOLOGY | [address] | | | + + + + + BASIC METABOLIC SET (07/11/2002 7:42 AM PDT) + +---------+ + + + | Component | Value | Ref Range | Performed | Pathologist | | | | | At | Signature | + +---------+ + + + | GLUCOSE, | 123 (H) | 65 - 110 mg/dL | [facility] | | | PLASMA | | | DEPARTMENT | | | (LAB) | | | OF | | | | | | PATHOLOGY | | + +---------+ + + + | BUN, PLASMA | 18 | 6 - 20 mg/dL | [facility] | | | (LAB) | | | DEPARTMENT | | | | | | OF | | | | | | PATHOLOGY | | + +---------+ + + + | CREATININE | 2.4 (H) | 0.7 - 1.3 mg/dL | [facility] | | | PLASMA | | | DEPARTMENT | | | (LAB) | | | OF | | | | | | PATHOLOGY | | + +---------+ + + + | SODIUM, | 129 (L) | 136 - 145 | [facility] | | | PLASMA | | mmol/L | DEPARTMENT | | | (LAB) | | | OF | | | | | | PATHOLOGY | | + +---------+ + + + | POTASSIUM, | 4.4 | 3.5 - 5.1 | [facility] | | | PLASMA | | mmol/L | DEPARTMENT | | | (LAB) | | | OF | | | | | | PATHOLOGY | | + +---------+ + + + | CHLORIDE, | 93 (L) | 98 - 107 mmol/L | [facility] | | | PLASMA | | | DEPARTMENT | | | (LAB) | | | OF | | | | | | PATHOLOGY | | + +---------+ + + + | TOTAL CO2, | 27 | 23 - 29 mmol/L | [facility] | | | PLASMA | | | DEPARTMENT | | | (LAB) | | | OF | | | | | | PATHOLOGY | | + +---------+ + + + | CALCIUM, | 8.0 (L) | 8.5 - 10.5 | [facility] | | | PLASMA | | mg/dL | DEPARTMENT | | | (LAB) | | | OF | | | | | | PATHOLOGY | | + +---------+ + + + + + | Specimen | + + | | + + + + + | Narrative | Performed At | + + + | Ordered by ELBERT EDWARDS | [facility] | | | DEPARTMENT OF | | | PATHOLOGY | + + + + + + + + | Performing | Address | City/State/Zipcode | Phone Number | | Organization | | | | + + + + + | [facility] DEPARTMENT OF | [address] | [place] [address] | | | PATHOLOGY | [address] | | | + + + + + | [facility] DEPARTMENT | [address] | [place] [address] | | | PATHOLOGY | [address] | | | + + + + + MAGNESIUM, PLASMA (07/11/2002 7:42 AM PDT) + +-------+ + + + | Component | Value | Ref Range | Performed | Pathologist | | | | | At | Signature | + +-------+ + + + | MAGNESIUM,P | 2.3 | 1.8 - 2.5 mg/dL | [facility] | | | LASMA | | | DEPARTMENT | | | | | | OF | | | | | | PATHOLOGY | | + +-------+ + + + + + | Specimen | + + | | + + + + + | Narrative | Performed At | + + + | Ordered by ELBERT EDWARDS | [facility] | | | DEPARTMENT OF | | | PATHOLOGY | + + + + + + + + | Performing | Address | City/State/Zipcode | Phone Number | | Organization | | | | + + + + + | [facility] DEPARTMENT OF | [address] | [place] [address] | | | PATHOLOGY | [address] | | | + + + + + | [facility] DEPARTMENT OF | [address] | [place] [address] | | | PATHOLOGY | [address] | | | + + + + + PHOSPHORUS, PLASMA (07/11/2002 7:42 AM PDT) + +-------+ + + + | Component | Value | Ref Range | Performed | Pathologist | | | | | At | Signature | + +-------+ + + + | PHOSPHORUS, | 3.8 | 2.4 - 4.7 mg/dL | [facility] | | | PLASMA | | | DEPARTMENT | | | (LAB) | | | OF | | | | | | PATHOLOGY | | + +-------+ + + + + + | Specimen | + + | | + + + + + | Narrative | Performed At | + + + | Ordered by ELBERT EDWARDS | [facility] | | | DEPARTMENT OF | | | PATHOLOGY | + + + + + + + + | Performing | Address | City/State/Zipcode | Phone Number | | Organization | | | | + + + + + | [facility] DEPARTMENT OF | [address] | [place] [address] | | | PATHOLOGY | [address] | | | + + + + + | [facility] DE[facility]MENT OF | [address] | [place] [address] | | | PATHOLOGY | [address] | | | + + + + + BLOOD GASES, ARTERIAL (07/10/2002 11:00 PM PDT) + +--------+ + + + | Component | Value | Ref Range | Performed | Pathologist | | | | | At | Signature | + +--------+ + + + | PAT TEMP | 37.2 | Degree C | [facility] | | | ARTERIAL | | | DEPARTMENT | | | | | | OF | | | | | | PATHOLOGY | | + +--------+ + + + | FIO2 | 3L | | [facility] | | | ARTERIAL | | | DEPARTMENT | | | | | | OF | | | | | | PATHOLOGY | | + +--------+ + + + | PH ARTERIAL | 7.39 | 7.37 - 7.44 | [facility] | | | | | | DEPARTMENT | | | | | | OF | | | | | | PATHOLOGY | | + +--------+ + + + | PCO2 | 43 | 32 - 43 mmHg | [facility] | | | ARTERIAL | | | DEPARTMENT | | | | | | OF | | | | | | PATHOLOGY | | + +--------+ + + + | PO2 | 65 (L) | 72 - 104 mmHg | [facility] | | | ARTERIAL | | | DEPARTMENT | | | | | | OF | | | | | | PATHOLOGY | | + +--------+ + + + | BASE EXCESS | 0.2 | | [facility] | | | ARTERIAL | | | DEPARTMENT | | | | | | OF | | | | | | PATHOLOGY | | + +--------+ + + + | HCO3 | 25 | 21 - 27 mmol/L | [facility] | | | ARTERIAL | | | DEPARTMENT | | | | | | OF | | | | | | PATHOLOGY | | + +--------+ + + + | TOTAL CO2 | 26 | 22 - 28 mmol/L | [facility] | | | ARTERIAL | | | DEPARTMENT | | | | | | OF | | | | | | PATHOLOGY | | + +--------+ + + + | O2 SAT, | 92.2 | 92.0 - 98.0 % | [facility] | | | ARTERIAL | | | DEPARTMENT | | | | | | OF | | | | | | PATHOLOGY | | + +--------+ + + + + + | Specimen | + + | | + + + + + | Narrative | Performed At | + + + | Ordered by ELBERT EDWARDS Arterial Blood Gas Blood | [facility] | | Gas results corrected for patient's temp when available | DEPARTMENT OF | | | PATHOLOGY | + + + + + + + + | Performing | Address | City/State/Zipcode | Phone Number | | Organization | | | | + + + + + | [facility] DEPARTMENT OF | [facility] | [place] [address] | | | PATHOLOGY | [address] | | | + + + + + | [facility] DEPARTMENT OF | [address] | [place] [address] | | | PATHOLOGY | [address] | | | + + + + + CBC ONLY WITH PLATELET (07/09/2002 3:00 AM PDT) + + + + + + | Component | Value | Ref Range | Performed | Pathologist | | | | | At | Signature | + + + + + + | WHITE CELL | 14.5 (H) | 4.4 - 11.0 K/cu | [facility] | | | COUNT | | mm | DEPARTMENT | | | | | | OF | | | | | | PATHOLOGY | | + + + + + + | RED CELL | 4.09 (L) | 4.20 - 5.90 | [facility] | | | COUNT | | M/cu mm | DEPARTMENT | | | | | | OF | | | | | | PATHOLOGY | | + + + + + + | HEMOGLOBIN | 11.9 (L) | 13.0 - 17.5 | [facility] | | | | | g/dL | DEPARTMENT | | | | | | OF | | | | | | PATHOLOGY | | + + + + + + | HEMATOCRIT | 33.9 (L) | 38.0 - 50.4 % | [facility] | | | | | | DEPARTMENT | | | | | | OF | | | | | | PATHOLOGY | | + + + + + + | MCV | 82.8 | 80.0 - 96.0 fL | [facility] | | | | | | DEPARTMENT | | | | | | OF | | | | | | PATHOLOGY | | + + + + + + | MCH | 29.1 | 28.5 - 32.3 pg | [facility] | | | | | | DEPARTMENT | | | | | | OF | | | | | | PATHOLOGY | | + + + + + + | MCHC | 35.1 | 33.4 - 35.5 | [facility] | | | | | g/dL | DEPARTMENT | | | | | | OF | | | | | | PATHOLOGY | | + + + + + + | RDW | 15.7 (H) | 11.5 - 15.0 % | [facility] | | | | | | DEPARTMENT | | | | | | OF | | | | | | PATHOLOGY | | + + + + + + | PLATELET | 347 | K/cu mm | [facility] | | | COUNT | | | DEPARTMENT | | | | | | OF | | | | | | PATHOLOGY | | + + + + + + | MPV | 6.3 (L) | 7.4 - 10.4 fL | [facility] | | | | | | DEPARTMENT | | | | | | OF | | | | | | PATHOLOGY | | + + + + + + + + | Specimen | + + | | + + + + + | Narrative | Performed At | + + + | Ordered by ELBERT EDWARDS | [facility] | | | DEPARTMENT OF | | | PATHOLOGY | + + + + + + + + | Performing | Address | City/State/Zipcode | Phone Number | | Organization | | | | + + + + + | [facility] DEPARTMENT OF | [address] | [place] [address] | | | PATHOLOGY | [address] | | | + + + + + | [facility] DEPARTMENT OF | [address] | [place] [address] | | | PATHOLOGY | [address] | | | + + + + + PROTHROMBIN TIME (07/09/2002 3:00 AM PDT) + + + + + + | Component | Value | Ref Range | Performed | Pathologist | | | | | At | Signature | + + + + + + | INR | 1.36Comment: | INR | [facility] | | | | PT INR Therapeutic | | DEPARTMENT | | | | ranges for full | | OF | | | | anticoagulation: | | PATHOLOGY | | | | INR for | | | | | | Venous Thromboembolism | | | | | | | | | | | | (2.0-3.0)INR | | | | | | INR for most | | | | | | patients with mech. | | | | | | valves (2.5-3.5)INR | | | | + + + + + + + + | Specimen | + + | | + + + + + | Narrative | Performed At | + + + | Ordered by ELBERT EDWARDS New method and Reference Ranges | [facility] | | effective 05/21/02 for : APTT, Thrombin Time, Fibrinogen, and | DEPARTMENT OF | | [facility]-Uday. | PATHOLOGY | + + + + + + + + | Performing | Address | City/State/Zipcode | Phone Number | | Organization | | | | + + + + + | [facility] DEPARTMENT OF | [address] | [place] [address] | | | PATHOLOGY | [address] | | | + + + + + | [facility] DEPARTMENT OF | [address] | [place] [address] | | | PATHOLOGY | [address] | | | + + + + + APTT (ACT. PART. THROMBO TIME) (07/09/2002 3:00 AM PDT) + + + + + + | Component | Value | Ref Range | Performed | Pathologist | | | | | At | Signature | + + + + + + | APTT | 42.1Comment: | seconds | [facility] | | | | APTT Therapeutic Range | | DEPARTMENT | | | | | | OF | | | | | | PATHOLOGY | | | | (75-120)sec | | | | | | Heparin levels | | | | | | of 0.35-0.7 U/mL | | | | + + + + + + + + | Specimen | + + | | + + + + + | Narrative | Performed At | + + + | Ordered by EBLERT EDWARDS New method and Reference Ranges | [facility] | | effective 05/21/02 for : APTT, Thrombin Time, Fibrinogen, and | DEPARTMENT OF | | D-Dimer. | PATHOLOGY | + + + + + + + + | Performing | Address | City/State/Zipcode | Phone Number | | Organization | | | | + + + + + | [facility] DEPARTMENT | [address] | [place] [address] | | | PATHOLOGY | [address] | | | + + + + + | [facility] DEPARTMENT OF | [address] | [place] [address] | | | PATHOLOGY | [address] | | | + + + + + CALCIUM, IONIZED, WHOLE BLOOD (07/09/2002 3:00 AM PDT) + +-------+ + + + | Component | Value | Ref Range | Performed | Pathologist | | | | | At | Signature | + +-------+ + + + | DEYVI ICA, | 1.15 | 1.14 - 1.32 | [facility] | | | WHOLE BLD | | mmol/L | DEPARTMENT | | | | | | OF | | | | | | PATHOLOGY | | + +-------+ + + + | PH, WHOLE | 7.38 | | [facility] | | | BLOOD | | | DEPARTMENT | | | | | | OF | | | | | | PATHOLOGY | | + +-------+ + + + | CALC ICA, | 1.15 | 1.14 - 1.28 | [facility] | | | WHOLE BLD | | mmol/L | DEPARTMENT | | | | | | OF | | | | | | PATHOLOGY | | + +-------+ + + + + + | Specimen | + + | | + + + + + | Narrative | Performed At | + + + | Ordered by ELBERT Chin Calcium, Whole Blood | [facility] | | | DEPARTMENT OF | | | PATHOLOGY | + + + + + + + + | Performing | Address | City/State/Zipcode | Phone Number | | Organization | | | | + + + + + | [facility] DEPARTMENT OF | [address] | [place] [address] | | | PATHOLOGY | [address] | | | + + + + + | [facility] DEPARTMENT OF | [address] | [place] [address] | | | PATHOLOGY | [address] | | | + + + + + BLOOD GASES, ARTERIAL (07/09/2002 3:00 AM PDT) + +--------+ + + + | Component | Value | Ref Range | Performed | Pathologist | | | | | At | Signature | + +--------+ + + + | PAT TEMP | 37.6 | Degree C | [facility] | | | ARTERIAL | | | DEPARTMENT | | | | | | OF | | | | | | PATHOLOGY | | + +--------+ + + + | FIO2 | 4L | | [facility] | | | ARTERIAL | | | DEPARTMENT | | | | | | OF | | | | | | PATHOLOGY | | + +--------+ + + + | PH ARTERIAL | 7.38 | 7.37 - 7.44 | [facility] | | | | | | DEPARTMENT | | | | | | OF | | | | | | PATHOLOGY | | + +--------+ + + + | PCO2 | 44 (H) | 32 - 43 mmHg | [facility] | | | ARTERIAL | | | DEPARTMENT | | | | | | OF | | | | | | PATHOLOGY | | + +--------+ + + + | PO2 | 93 | 72 - 104 mmHg | [facility] | | | ARTERIAL | | | DEPARTMENT | | | | | | OF | | | | | | PATHOLOGY | | + +--------+ + + + | BASE EXCESS | 0.7 | | [facility] | | | ARTERIAL | | | DEPARTMENT | | | | | | OF | | | | | | PATHOLOGY | | + +--------+ + + + | HCO3 | 25 | 21 - 27 mmol/L | [facility] | | | ARTERIAL | | | DEPARTMENT | | | | | | OF | | | | | | PATHOLOGY | | + +--------+ + + + | TOTAL CO2 | 27 | 22 - 28 mmol/L | [facility] | | | ARTERIAL | | | DEPARTMENT | | | | | | OF | | | | | | PATHOLOGY | | + +--------+ + + + | O2 SAT, | 97.1 | 92.0 - 98.0 % | [facility] | | | ARTERIAL | | | DEPARTMENT | | | | | | OF | | | | | | PATHOLOGY | | + +--------+ + + + + + | Specimen | + + | | + + + + + | Narrative | Performed At | + + + | Ordered by ELBERT EDWARDS Arterial Blood Gas Blood | [facility] | | Gas results corrected for patient's temp when available | DEPARTMENT OF | | | PATHOLOGY | + + + + + + + + | Performing | Address | City/State/Zipcode | Phone Number | | Organization | | | | + + + + + | [facility] DEPARTMENT OF | [facility] | [place] [address] | | | PATHOLOGY | [address] | | | + + + + + | [facility] DEPARTMENT OF | [facility] | [place] [address] | | | PATHOLOGY | [address] | | | + + + + + BASIC METABOLIC SET (07/09/2002 3:00 AM PDT) + +---------+ + + + | Component | Value | Ref Range | Performed | Pathologist | | | | | At | Signature | + +---------+ + + + | GLUCOSE, | 160 (H) | 65 - 110 mg/dL | [facility] | | | PLASMA | | | DEPARTMENT | | | (LAB) | | | OF | | | | | | PATHOLOGY | | + +---------+ + + + | BUN, PLASMA | 12 | 6 - 20 mg/dL | [facility] | | | (LAB) | | | DEPARTMENT | | | | | | OF | | | | | | PATHOLOGY | | + +---------+ + + + | CREATININE | 2.1 (H) | 0.7 - 1.3 mg/dL | [facility] | | | PLASMA | | | DEPARTMENT | | | (LAB) | | | OF | | | | | | PATHOLOGY | | + +---------+ + + + | SODIUM, | 139 | 136 - 145 | [facility] | | | PLASMA | | mmol/L | DEPARTMENT | | | (LAB) | | | OF | | | | | | PATHOLOGY | | + +---------+ + + + | POTASSIUM, | 5.2 (H) | 3.5 - 5.1 | [facility] | | | PLASMA | | mmol/L | DEPARTMENT | | | (LAB) | | | OF | | | | | | PATHOLOGY | | + +---------+ + + + | CHLORIDE, | 107 | 98 - 107 mmol/L | [facility] | | | PLASMA | | | DEPARTMENT | | | (LAB) | | | OF | | | | | | PATHOLOGY | | + +---------+ + + + | TOTAL CO2, | 26 | 23 - 29 mmol/L | [facility] | | | PLASMA | | | DEPARTMENT | | | (LAB) | | | OF | | | | | | PATHOLOGY | | + +---------+ + + + | CALCIUM, | 7.8 (L) | 8.5 - 10.5 | [facility] | | | PLASMA | | mg/dL | DEPARTMENT | | | (LAB) | | | OF | | | | | | PATHOLOGY | | + +---------+ + + + + + | Specimen | + + | | + + + + + | Narrative | Performed At | + + + | Ordered by ELBERT EDWARDS | [facility] | | | DEPARTMENT OF | | | PATHOLOGY | + + + + + + + + | Performing | Address | City/State/Zipcode | Phone Number | | Organization | | | | + + + + + | [facility] DEPARTMENT OF | [address] | [place] [address] | | | PATHOLOGY | [address] | | | + + + + + | [facility] DEPARTMENT OF | [address] | [place] [address] | | | PATHOLOGY | [address] | | | + + + + + MAGNESIUM, PLASMA (07/09/2002 3:00 AM PDT) + +---------+ + + + | Component | Value | Ref Range | Performed | Pathologist | | | | | At | Signature | + +---------+ + + + | MAGNESIUM,P | 3.2 (H) | 1.8 - 2.5 mg/dL | [facility] | | | LASMA | | | DEPARTMENT | | | | | | OF | | | | | | PATHOLOGY | | + +---------+ + + + + + | Specimen | + + | | + + + + + | Narrative | Performed At | + + + | Ordered by ELBERT EDWARDS | [facility] | | | DEPARTMENT OF | | | PATHOLOGY | + + + + + + + + | Performing | Address | City/State/Zipcode | Phone Number | | Organization | | | | + + + + + | [facility] DEPARTMENT OF | [address] | [place] [address] | | | PATHOLOGY | [address] | | | + + + + + | [facility] DEPARTMENT OF | [address] | [place] [address] | | | PATHOLOGY | [address] | | | + + + + + PHOSPHORUS, PLASMA (07/09/2002 3:00 AM PDT) + +-------+ + + + | Component | Value | Ref Range | Performed | Pathologist | | | | | At | Signature | + +-------+ + + + | PHOSPHORUS, | 3.8 | 2.4 - 4.7 mg/dL | [facility] | | | PLASMA | | | DEPARTMENT | | | (LAB) | | | OF | | | | | | PATHOLOGY | | + +-------+ + + + + + | Specimen | + + | | + + + + + | Narrative | Performed At | + + + | Ordered by ELBERT EDWARDS | [facility] | | | DEPARTMENT OF | | | PATHOLOGY | + + + + + + + + | Performing | Address | City/State/Zipcode | Phone Number | | Organization | | | | + + + + + | [facility] DEPARTMENT OF | [address] | [place] [address] | | | PATHOLOGY | [address] | | | + + + + + | [facility] DEPARTMENT OF | [address] | [place] [address] | | | PATHOLOGY | [address] | | | + + + + + BLOOD GASES, ARTERIAL (07/08/2002 11:29 PM PDT) + +-------+ + + + | Component | Value | Ref Range | Performed | Pathologist | | | | | At | Signature | + +-------+ + + + | PAT TEMP | 37.1 | Degree C | [facility] | | | ARTERIAL | | | DEPARTMENT | | | | | | OF | | | | | | PATHOLOGY | | + +-------+ + + + | FIO2 | .50 | | [facility] | | | ARTERIAL | | | DEPARTMENT | | | | | | OF | | | | | | PATHOLOGY | | + +-------+ + + + | PH ARTERIAL | 7.38 | 7.37 - 7.44 | [facility] | | | | | | DEPARTMENT | | | | | | OF | | | | | | PATHOLOGY | | + +-------+ + + + | PCO2 | 40 | 32 - 43 mmHg | [facility] | | | ARTERIAL | | | DEPARTMENT | | | | | | OF | | | | | | PATHOLOGY | | + +-------+ + + + | PO2 | 94 | 72 - 104 mmHg | [facility] | | | ARTERIAL | | | DEPARTMENT | | | | | | OF | | | | | | PATHOLOGY | | + +-------+ + + + | BASE EXCESS | -1.2 | | [facility] | | | ARTERIAL | | | DEPARTMENT | | | | | | OF | | | | | | PATHOLOGY | | + +-------+ + + + | HCO3 | 23 | 21 - 27 mmol/L | [facility] | | | ARTERIAL | | | DEPARTMENT | | | | | | OF | | | | | | PATHOLOGY | | + +-------+ + + + | TOTAL CO2 | 24 | 22 - 28 mmol/L | [facility] | | | ARTERIAL | | | DEPARTMENT | | | | | | OF | | | | | | PATHOLOGY | | + +-------+ + + + | O2 SAT, | 97.2 | 92.0 - 98.0 % | [facility] | | | ARTERIAL | | | DEPARTMENT | | | | | | OF | | | | | | PATHOLOGY | | + +-------+ + + + + + | Specimen | + + | | + + + + + | Narrative | Performed At | + + + | Ordered by ELBERT EDWARDS Arterial Blood Gas Blood | [facility] | | Gas results corrected for patient's temp when available | DEPARTMENT OF | | | PATHOLOGY | + + + + + + + + | Performing | Address | City/State/Zipcode | Phone Number | | Organization | | | | + + + + + | [facility] DEPARTMENT | [facility] | [place] [address] | | | PATHOLOGY | [address] | | | + + + + + | [facility] DEPARTMENT OF | [facility] [address] [address] | [place] [address] | | | PATHOLOGY | [address] | | | + + + + + CBC ONLY WITH PLATELET (07/08/2002 10:10 PM PDT) + + + + + + | Component | Value | Ref Range | Performed | Pathologist | | | | | At | Signature | + + + + + + | WHITE CELL | 15.3 (H) | 4.4 - 11.0 K/cu | [facility] | | | COUNT | | mm | DEPARTMENT | | | | | | OF | | | | | | PATHOLOGY | | + + + + + + | RED CELL | 4.55 | 4.20 - 5.90 | [facility] | | | COUNT | | M/cu mm | DEPARTMENT | | | | | | OF | | | | | | PATHOLOGY | | + + + + + + | HEMOGLOBIN | 12.9 (L) | 13.0 - 17.5 | [facility] | | | | | g/dL | DEPARTMENT | | | | | | OF | | | | | | PATHOLOGY | | + + + + + + | HEMATOCRIT | 37.8 (L) | 38.0 - 50.4 % | [facility] | | | | | | DEPARTMENT | | | | | | OF | | | | | | PATHOLOGY | | + + + + + + | MCV | 83.0 | 80.0 - 96.0 fL | [facility] | | | | | | DEPARTMENT | | | | | | OF | | | | | | PATHOLOGY | | + + + + + + | MCH | 28.3 (L) | 28.5 - 32.3 pg | [facility] | | | | | | DEPARTMENT | | | | | | OF | | | | | | PATHOLOGY | | + + + + + + | MCHC | 34.1 | 33.4 - 35.5 | [facility] | | | | | g/dL | DEPARTMENT | | | | | | OF | | | | | | PATHOLOGY | | + + + + + + | RDW | 15.3 (H) | 11.5 - 15.0 % | [facility] | | | | | | DEPARTMENT | | | | | | OF | | | | | | PATHOLOGY | | + + + + + + | PLATELET | 307 | K/cu mm | [facility] | | | COUNT | | | DEPARTMENT | | | | | | OF | | | | | | PATHOLOGY | | + + + + + + | MPV | 6.1 (L) | 7.4 - 10.4 fL | [facility] | | | | | | DEPARTMENT | | | | | | OF | | | | | | PATHOLOGY | | + + + + + + + + | Specimen | + + | | + + + + + | Narrative | Performed At | + + + | Ordered by ELBERT EDWARDS | [facility] | | | DEPARTMENT OF | | | PATHOLOGY | + + + + + + + + | Performing | Address | City/State/Zipcode | Phone Number | | Organization | | | | + + + + + | [facility] DEPARTMENT OF | [address] | [place] [address] | | | PATHOLOGY | [address] | | | + + + + + | [facility] DEPARTMENT OF | [address] | [place] [address] | | | PATHOLOGY | [address] | | | + + + + + APTT (ACT. PART. THROMBO TIME) (07/08/2002 9:50 PM PDT) + + + + + + | Component | Value | Ref Range | Performed | Pathologist | | | | | At | Signature | + + + + + + | APTT | 35.4Comment: | seconds | [facility] | | | | APTT Therapeutic Range | | DEPARTMENT | | | | | | OF | | | | | | PATHOLOGY | | | | (75-120)sec | | | | | | Heparin levels | | | | | | of 0.35-0.7 U/mL | | | | + + + + + + + + | Specimen | + + | | + + + + + | Narrative | Performed At | + + + | Ordered by ELBERT EDWARDS New method and Reference Ranges | [facility] | | effective 05/21/02 for : APTT, Thrombin Time, Fibrinogen, and | DEPARTMENT OF | | [facility]. | PATHOLOGY | + + + + + + + + | Performing | Address | City/State/Zipcode | Phone Number | | Organization | | | | + + + + + | [facility] DEPARTMENT OF | [address] | [place] [address] | | | PATHOLOGY | [address] | | | + + + + + | [facility] DEPARTMENT OF | [address] | [place] [address] | | | PATHOLOGY | [address] | | | + + + + + CBC ONLY WITH PLATELET (07/08/2002 9:50 PM PDT) + + + + + + | Component | Value | Ref Range | Performed | Pathologist | | | | | At | Signature | + + + + + + | WHITE CELL | See cmnt | 4.4 - 11.0 K/cu | [facility] | | | COUNT | | mm | DEPARTMENT | | | | | | OF | | | | | | PATHOLOGY | | + + + + + + | RED CELL | See cmnt | 4.20 - 5.90 | [facility] | | | COUNT | | M/cu mm | DEPARTMENT | | | | | | OF | | | | | | PATHOLOGY | | + + + + + + | HEMOGLOBIN | See cmnt | 13.0 - 17.5 | [facility] | | | | | g/dL | DEPARTMENT | | | | | | OF | | | | | | PATHOLOGY | | + + + + + + | HEMATOCRIT | See cmnt | 38.0 - 50.4 % | [facility] | | | | | | DEPARTMENT | | | | | | OF | | | | | | PATHOLOGY | | + + + + + + | MCV | See cmnt | 80.0 - 96.0 fL | [facility] | | | | | | DEPARTMENT | | | | | | OF | | | | | | PATHOLOGY | | + + + + + + | MCH | See cmnt | 28.5 - 32.3 pg | [facility] | | | | | | DEPARTMENT | | | | | | OF | | | | | | PATHOLOGY | | + + + + + + | MCHC | See cmnt | 33.4 - 35.5 | [facility] | | | | | g/dL | DEPARTMENT | | | | | | OF | | | | | | PATHOLOGY | | + + + + + + | RDW | See cmnt | 11.5 - 15.0 % | [facility] | | | | | | DEPARTMENT | | | | | | OF | | | | | | PATHOLOGY | | + + + + + + | PLATELET | See cmnt | K/cu mm | [facility] | | | COUNT | | | DEPARTMENT | | | | | | OF | | | | | | PATHOLOGY | | + + + + + + | MPV | See cmnt | 7.4 - 10.4 fL | [facility] | | | | | | DEPARTMENT | | | | | | OF | | | | | | PATHOLOGY | | + + + + + + + + | Specimen | + + | | + + + + + | Narrative | Performed At | + + + | Ordered by ELBERT EDWARDS [id number] Specimen collected in [facility] | [facility] | | type of tube. | DEPARTMENT OF | | | PATHOLOGY | + + + + + + + + | Performing | Address | City/State/Zipcode | Phone Number | | Organization | | | | + + + + + | [facility] DEPARTMENT OF | [address] | [place] [address] | | | PATHOLOGY | [address] | | | + + + + + | [facility] | [address] | [place] [address] | | | PATHOLOGY | [address] | | | + + + + + BASIC METABOLIC SET (07/08/2002 9:50 PM PDT) + +---------+ + + + | Component | Value | Ref Range | Performed | Pathologist | | | | | At | Signature | + +---------+ + + + | GLUCOSE, | 173 (H) | 65 - 110 mg/dL | [facility] | | | PLASMA | | | DEPARTMENT | | | (LAB) | | | OF | | | | | | PATHOLOGY | | + +---------+ + + + | BUN, PLASMA | 11 | 6 - 20 mg/dL | [facility] | | | (LAB) | | | DEPARTMENT | | | | | | OF | | | | | | PATHOLOGY | | + +---------+ + + + | CREATININE | 1.8 (H) | 0.7 - 1.3 mg/dL | [facility] | | | PLASMA | | | DEPARTMENT | | | (LAB) | | | OF | | | | | | PATHOLOGY | | + +---------+ + + + | SODIUM, | 140 | 136 - 145 | [facility] | | | PLASMA | | mmol/L | DEPARTMENT | | | (LAB) | | | OF | | | | | | PATHOLOGY | | + +---------+ + + + | POTASSIUM, | 4.2 | 3.5 - 5.1 | [facility] | | | PLASMA | | mmol/L | DEPARTMENT | | | (LAB) | | | OF | | | | | | PATHOLOGY | | + +---------+ + + + | CHLORIDE, | 107 | 98 - 107 mmol/L | [facility] | | | PLASMA | | | DEPARTMENT | | | (LAB) | | | OF | | | | | | PATHOLOGY | | + +---------+ + + + | TOTAL CO2, | 23 | 23 - 29 mmol/L | [facility] | | | PLASMA | | | DEPARTMENT | | | (LAB) | | | OF | | | | | | PATHOLOGY | | + +---------+ + + + | CALCIUM, | 7.3 (L) | 8.5 - 10.5 | [facility] | | | PLASMA | | mg/dL | DEPARTMENT | | | (LAB) | | | OF | | | | | | PATHOLOGY | | + +---------+ + + + + + | Specimen | + + | | + + + + + | Narrative | Performed At | + + + | Ordered by ELBERT EDWARDS | [facility] | | | DEPARTMENT OF | | | PATHOLOGY | + + + + + + + + | Performing | Address | City/State/Zipcode | Phone Number | | Organization | | | | + + + + + | [facility] DEPARTMENT [facility] | [address] | [place] [address] | | | PATHOLOGY | [address] | | | + + + + + | [facility] DEPARTMENT OF | [address] | [place] [address] | | | PATHOLOGY | [address] | | | + + + + + MAGNESIUM, PLASMA (07/08/2002 9:50 PM PDT) + +---------+ + + + | Component | Value | Ref Range | Performed | Pathologist | | | | | At | Signature | + +---------+ + + + | MAGNESIUM,P | 3.6 (H) | 1.8 - 2.5 mg/dL | [facility] | | | LASMA | | | DEPARTMENT | | | | | | OF | | | | | | PATHOLOGY | | + +---------+ + + + + + | Specimen | + + | | + + + + + | Narrative | Performed At | + + + | Ordered by ELBERT EDWARDS | [facility] | | | DEPARTMENT OF | | | PATHOLOGY | + + + + + + + + | Performing | Address | City/State/Zipcode | Phone Number | | Organization | | | | + + + + + | [facility] DEPARTMENT [facility] | [address] | [place] [address] | | | PATHOLOGY | [address] | | | + + + + + | [facility] DEPARTMENT OF | [address] | [place] [address] | | | PATHOLOGY | [address] | | | + + + + + PHOSPHORUS, PLASMA (07/08/2002 9:50 PM PDT) + +-------+ + + + | Component | Value | Ref Range | Performed | Pathologist | | | | | At | Signature | + +-------+ + + + | PHOSPHORUS, | 3.8 | 2.4 - 4.7 mg/dL | [facility] | | | PLASMA | | | DEPARTMENT | | | (LAB) | | | OF | | | | | | PATHOLOGY | | + +-------+ + + + + + | Specimen | + + | | + + + + + | Narrative | Performed At | + + + | Ordered by ELBERT EDWARDS | [facility] | | | DEPARTMENT OF | | | PATHOLOGY | + + + + + + + + | Performing | Address | City/State/Zipcode | Phone Number | | Organization | | | | + + + + + | [facility] DEPARTMENT [facility] | [address] | [place] [address] | | | PATHOLOGY | [address] | | | + + + + + | [facility] DEPARTMENT [facility] | [address] | [place] [address] | | | PATHOLOGY | [address] | | | + + + + + BLOOD GASES, ARTERIAL (07/08/2002 9:50 PM PDT) + + + + + + | Component | Value | Ref Range | Performed | Pathologist | | | | | At | Signature | + + + + + + | PAT TEMP | 37.0 | Degree C | [facility] | | | ARTERIAL | | | DEPARTMENT | | | | | | OF | | | | | | PATHOLOGY | | + + + + + + | FIO2 | .50 | | [facility] | | | ARTERIAL | | | DEPARTMENT | | | | | | OF | | | | | | PATHOLOGY | | + + + + + + | PH ARTERIAL | 7.35 (L) | 7.37 - 7.44 | [facility] | | | | | | DEPARTMENT | | | | | | OF | | | | | | PATHOLOGY | | + + + + + + | PCO2 | 41 | 32 - 43 mmHg | [facility] | | | ARTERIAL | | | DEPARTMENT | | | | | | OF | | | | | | PATHOLOGY | | + + + + + + | PO2 | 68 (L) | 72 - 104 mmHg | [facility] | | | ARTERIAL | | | DEPARTMENT | | | | | | OF | | | | | | PATHOLOGY | | + + + + + + | BASE EXCESS | -2.8 | | [facility] | | | ARTERIAL | | | DEPARTMENT | | | | | | OF | | | | | | PATHOLOGY | | + + + + + + | HCO3 | 22 | 21 - 27 mmol/L | [facility] | | | ARTERIAL | | | DEPARTMENT | | | | | | OF | | | | | | PATHOLOGY | | + + + + + + | TOTAL CO2 | 23 | 22 - 28 mmol/L | [facility] | | | ARTERIAL | | | DEPARTMENT | | | | | | OF | | | | | | PATHOLOGY | | + + + + + + | O2 SAT, | 92.3 | 92.0 - 98.0 % | [facility] | | | ARTERIAL | | | DEPARTMENT | | | | | | OF | | | | | | PATHOLOGY | | + + + + + + + + | Specimen | + + | | + + + + + | Narrative | Performed At | + + + | Ordered by ELBERT EDWARDS Arterial Blood Gas Blood | [facility] | | Gas results corrected for patient's temp when available | DEPARTMENT OF | | | PATHOLOGY | + + + + + + + + | Performing | Address | City/State/Zipcode | Phone Number | | Organization | | | | + + + + + | [facility] DEPARTMENT OF | [address] | [place] [address] | | | PATHOLOGY | [address] | | | + + + + + | [facility] | [facility] | [place] [address] | | | PATHOLOGY | [address] | | | + + + + + CALCIUM, IONIZED, WHOLE BLOOD (07/08/2002 9:50 PM PDT) + + + + + + | Component | Value | Ref Range | Performed | Pathologist | | | | | At | Signature | + + + + + + | DEYVI ICA, | 1.06 (L) | 1.14 - 1.32 | [facility] | | | WHOLE BLD | | mmol/L | DEPARTMENT | | | | | | OF | | | | | | PATHOLOGY | | + + + + + + | PH, WHOLE | 7.35 | | [facility] | | | BLOOD | | | DEPARTMENT | | | | | | OF | | | | | | PATHOLOGY | | + + + + + + | CALC ICA, | 1.03 (L) | 1.14 - 1.28 | [facility] | | | WHOLE BLD | | mmol/L | DEPARTMENT | | | | | | OF | | | | | | PATHOLOGY | | + + + + + + + + | Specimen | + + | | + + + + + | Narrative | Performed At | + + + | Ordered by ELBERT EDWARDS Ionized Calcium, Whole Blood | [facility] | | | DEPARTMENT OF | | | PATHOLOGY | + + + + + + + + | Performing | Address | City/State/Zipcode | Phone Number | | Organization | | | | + + + + + | [facility] DEPARTMENT OF | [address] | [place] [address] | | | PATHOLOGY | [address] | | | + + + + + | [facility] | [address] | [place] [address] | | | PATHOLOGY | [address] | | | + + + + + CULT, TISSUE (07/08/2002 7:25 PM PDT) + + + + + + | Component | Value | Ref Range | Performed | Pathologist | | | | | At | Signature | + + + + + + | SOURCE BODY | Specimen A (Tissue from | | | | | SITE | mitral valve). | | | | + + + + + + | CULTURE | Tissue Culture | | | | | RESULT | | | | | | | Source...............: | | | | | | Specimen A (Tissue from | | | | | | mitral valve). RLB Gram | | | | | | Stain...........: 3+ | | | | | | Red blood cells | | | | | | | | | | | | 1+ PMN's | | | | | | | | | | | | No organisms | | | | | | seen. Culture: | | | | | | Preliminary Report: | | | | | | Culture Received, No | | | | | | growth to date. | | | | | | Final Report: No | | | | | | growth after 72 hours | | | | | | Final Report | | | | + + + + + + + + | Specimen | + + | | + + + + + | Narrative | Performed At | + + + | Ordered by BENJIE LARIOS | | + + + + + + + + | Performing | Address | City/State/Zipcode | Phone Number | | Organization | | | | + + + + + | [facility] | [address] | [place] [address] | | | LAB-MICRO | | | | + + + + + GENTAMYCIN(TOX) (07/08/2002 1:37 PM PDT) + + + + + + | Component | Value | Ref Range | Performed | Pathologist | | | | | At | Signature | + + + + + + | GENTAMYCIN | 4.1 (L) | 5.0 - 8.0 ug/mL | [facility] | | | (TOX) | | | DEPARTMENT | | | | | | OF | | | | | | PATHOLOGY | | + + + + + + | PEAK/TROUGH | Peak | | [facility] | | | (TOX) | | | DEPARTMENT | | | | | | OF | | | | | | PATHOLOGY | | + + + + + + | DRAW | 30 minutes after IV dose | | [facility] | | | TIME/DOSE | | | DEPARTMENT | | | DETAILS | | | OF | | | | | | PATHOLOGY | | + + + + + + + + | Specimen | + + | | + + + + + | Narrative | Performed At | + + + | Ordered by YARED JIMENEZ | [facility] | | | DEPARTMENT OF | | | PATHOLOGY | + + + + + + + + | Performing | Address | City/State/Zipcode | Phone Number | | Organization | | | | + + + + + | [facility] DEPARTMENT [facility] | [address] | [place] [address] | | | PATHOLOGY | [address] | | | + + + + + | [facility] DEPARTMENT OF | [address] | [place] [address] | | | PATHOLOGY | [address] | | | + + + + + GENTAMYCIN(TOX) (07/08/2002 12:00 PM PDT) + + + + + + | Component | Value | Ref Range | Performed | Pathologist | | | | | At | Signature | + + + + + + | GENTAMYCIN | 0.9 | <2.0 ug/mL | [facility] | | | (TOX) | | | DEPARTMENT | | | | | | OF | | | | | | PATHOLOGY | | + + + + + + | PEAK/TROUGH | Trough | | [facility] | | | (TOX) | | | DEPARTMENT | | | | | | OF | | | | | | PATHOLOGY | | + + + + + + | DRAW | 5 min before iv dose | | [facility] | | | TIME/DOSE | | | DEPARTMENT | | | DETAILS | | | OF | | | | | | PATHOLOGY | | + + + + + + + + | Specimen | + + | | + + + + + | Narrative | Performed At | + + + | Ordered by YARED JIMENEZ | [facility] | | | DEPARTMENT OF | | | PATHOLOGY | + + + + + + + + | Performing | Address | City/State/Zipcode | Phone Number | | Organization | | | | + + + + + | [facility] DEPARTMENT OF | [address] | [place] [address] | | | PATHOLOGY | [address] | | | + + + + + | [facility] DEPARTMENT OF | [address] | [place] [address] | | | PATHOLOGY | [address] | | | + + + + + DIFFERENTIAL (07/08/2002 7:40 AM PDT) + +---------+ + + + | Component | Value | Ref Range | Performed | Pathologist | | | | | At | Signature | + +---------+ + + + | NEUTROPHIL | 78 (H) | 50 - 70 % | [facility] | | | % | | | DEPARTMENT | | | | | | OF | | | | | | PATHOLOGY | | + +---------+ + + + | LYMPHOCYTE | 9 (L) | 18 - 42 % | [facility] | | | % | | | DEPARTMENT | | | | | | OF | | | | | | PATHOLOGY | | + +---------+ + + + | MONOCYTE % | 10 (H) | 2 - 8 % | [facility] | | | | | | DEPARTMENT | | | | | | OF | | | | | | PATHOLOGY | | + +---------+ + + + | EOS % | 2 | 1 - 3 % | [facility] | | | | | | DEPARTMENT | | | | | | OF | | | | | | PATHOLOGY | | + +---------+ + + + | BASO % | 1 | <3 % | [facility] | | | | | | DEPARTMENT | | | | | | OF | | | | | | PATHOLOGY | | + +---------+ + + + | NEUTROPHIL | 9.4 (H) | 1.8 - 7.7 K/cu | [facility] | | | # | | mm | DEPARTMENT | | | | | | OF | | | | | | PATHOLOGY | | + +---------+ + + + | LYMPHOCYTE | 1.1 | 1.0 - 4.8 K/cu | [facility] | | | # | | mm | DEPARTMENT | | | | | | OF | | | | | | PATHOLOGY | | + +---------+ + + + | MONOCYTE # | 1.2 (H) | 0.1 - 0.6 K/cu | [facility] | | | | | mm | DEPARTMENT | | | | | | OF | | | | | | PATHOLOGY | | + +---------+ + + + | EOS # | 0.2 | <0.6 K/cu mm | [facility] | | | | | | DEPARTMENT | | | | | | OF | | | | | | PATHOLOGY | | + +---------+ + + + | BASO # | 0.1 | <0.2 | [facility] | | | | | | DEPARTMENT | | | | | | OF | | | | | | PATHOLOGY | | + +---------+ + + + + + | Specimen | + + | | + + + + + | Narrative | Performed At | + + + | Ordered by YARED JIMENEZ | [facility] | | | DEPARTMENT OF | | | PATHOLOGY | + + + + + + + + | Performing | Address | City/State/Zipcode | Phone Number | | Organization | | | | + + + + + | [facility] DEPARTMENT OF | [address] | [place] [address] | | | PATHOLOGY | [address] | | | + + + + + | [facility] DEPARTMENT OF | [address] | [place] [address] | | | PATHOLOGY | [address] | | | + + + + + CBC, WITH DIFFERENTIAL (07/08/2002 7:40 AM PDT) + + + + + + | Component | Value | Ref Range | Performed | Pathologist | | | | | At | Signature | + + + + + + | WHITE CELL | 12.0 (H) | 4.4 - 11.0 K/cu | [facility] | | | COUNT | | mm | DEPARTMENT | | | | | | OF | | | | | | PATHOLOGY | | + + + + + + | RED CELL | 3.45 (L) | 4.20 - 5.90 | [facility] | | | COUNT | | M/cu mm | DEPARTMENT | | | | | | OF | | | | | | PATHOLOGY | | + + + + + + | HEMOGLOBIN | 9.9 (L) | 13.0 - 17.5 | [facility] | | | | | g/dL | DEPARTMENT | | | | | | OF | | | | | | PATHOLOGY | | + + + + + + | HEMATOCRIT | 28.9 (L) | 38.0 - 50.4 % | [facility] | | | | | | DEPARTMENT | | | | | | OF | | | | | | PATHOLOGY | | + + + + + + | MCV | 83.6 | 80.0 - 96.0 fL | [facility] | | | | | | DEPARTMENT | | | | | | OF | | | | | | PATHOLOGY | | + + + + + + | MCH | 28.8 | 28.5 - 32.3 pg | [facility] | | | | | | DEPARTMENT | | | | | | OF | | | | | | PATHOLOGY | | + + + + + + | MCHC | 34.4 | 33.4 - 35.5 | [facility] | | | | | g/dL | DEPARTMENT | | | | | | OF | | | | | | PATHOLOGY | | + + + + + + | RDW | 15.0 | 11.5 - 15.0 % | [facility] | | | | | | DEPARTMENT | | | | | | OF | | | | | | PATHOLOGY | | + + + + + + | PLATELET | 627 | K/cu mm | [facility] | | | COUNT | | | DEPARTMENT | | | | | | OF | | | | | | PATHOLOGY | | + + + + + + | MPV | 6.4 (L) | 7.4 - 10.4 fL | [facility] | | | | | | DEPARTMENT | | | | | | OF | | | | | | PATHOLOGY | | + + + + + + + + | Specimen | + + | | + + + + + | Narrative | Performed At | + + + | Ordered by YARED JIMENEZ | [facility] | | | DEPARTMENT OF | | | PATHOLOGY | + + + + + + + + | Performing | Address | City/State/Zipcode | Phone Number | | Organization | | | | + + + + + | [facility] DEPARTMENT OF | [address] | [place] [address] | | | PATHOLOGY | [address] | | | + + + + + | [facility] DEPARTMENT | [address] | [place] [address] | | | PATHOLOGY | [address] | | | + + + + + BASIC METABOLIC SET (07/08/2002 7:40 AM PDT) + +---------+ + + + | Component | Value | Ref Range | Performed | Pathologist | | | | | At | Signature | + +---------+ + + + | GLUCOSE, | 121 (H) | 65 - 110 mg/dL | [facility] | | | PLASMA | | | DEPARTMENT | | | (LAB) | | | OF | | | | | | PATHOLOGY | | + +---------+ + + + | BUN, PLASMA | 12 | 6 - 20 mg/dL | [facility] | | | (LAB) | | | DEPARTMENT | | | | | | OF | | | | | | PATHOLOGY | | + +---------+ + + + | CREATININE | 2.0 (H) | 0.7 - 1.3 mg/dL | [facility] | | | PLASMA | | | DEPARTMENT | | | (LAB) | | | OF | | | | | | PATHOLOGY | | + +---------+ + + + | SODIUM, | 137 | 136 - 145 | [facility] | | | PLASMA | | mmol/L | DEPARTMENT | | | (LAB) | | | OF | | | | | | PATHOLOGY | | + +---------+ + + + | POTASSIUM, | 3.9 | 3.5 - 5.1 | [facility] | | | PLASMA | | mmol/L | DEPARTMENT | | | (LAB) | | | OF | | | | | | PATHOLOGY | | + +---------+ + + + | CHLORIDE, | 98 | 98 - 107 mmol/L | [facility] | | | PLASMA | | | DEPARTMENT | | | (LAB) | | | OF | | | | | | PATHOLOGY | | + +---------+ + + + | TOTAL CO2, | 27 | 23 - 29 mmol/L | [facility] | | | PLASMA | | | DEPARTMENT | | | (LAB) | | | OF | | | | | | PATHOLOGY | | + +---------+ + + + | CALCIUM, | 9.1 | 8.5 - 10.5 | [facility] | | | PLASMA | | mg/dL | DEPARTMENT | | | (LAB) | | | OF | | | | | | PATHOLOGY | | + +---------+ + + + + + | Specimen | + + | | + + + + + | Narrative | Performed At | + + + | Ordered by YARED JIMENEZ | [facility] | | | DEPARTMENT OF | | | PATHOLOGY | + + + + + + + + | Performing | Address | City/State/Zipcode | Phone Number | | Organization | | | | + + + + + | [facility] DE[facility] | [address] | [place] [address] | | | PATHOLOGY | [address] | | | + + + + + | [facility] | [address] | [place] [address] | | | PATHOLOGY | [address] | | | + + + + + MAGNESIUM, PLASMA (07/08/2002 7:40 AM PDT) + +-------+ + + + | Component | Value | Ref Range | Performed | Pathologist | | | | | At | Signature | + +-------+ + + + | MAGNESIUM,P | 2.4 | 1.8 - 2.5 mg/dL | [facility] | | | LASMA | | | DEPARTMENT | | | | | | OF | | | | | | PATHOLOGY | | + +-------+ + + + + + | Specimen | + + | | + + + + + | Narrative | Performed At | + + + | Ordered by YARED JIMENEZ | [facility] | | | DEPARTMENT OF | | | PATHOLOGY | + + + + + + + + | Performing | Address | City/State/Zipcode | Phone Number | | Organization | | | | + + + + + | [facility] | [address] | [place] [address] | | | PATHOLOGY | [address] | | | + + + + + | [facility] | [address] [place] [address] | [place] [address] | | | PATHOLOGY | [address] | | | + + + + + PHOSPHORUS, PLASMA (07/08/2002 7:40 AM PDT) + +---------+ + + + | Component | Value | Ref Range | Performed | Pathologist | | | | | At | Signature | + +---------+ + + + | PHOSPHORUS, | 5.1 (H) | 2.4 - 4.7 mg/dL | [facility] | | | PLASMA | | | DEPARTMENT | | | (LAB) | | | OF | | | | | | PATHOLOGY | | + +---------+ + + + + + | Specimen | + + | | + + + + + | Narrative | Performed At | + + + | Ordered mika JIMENEZ | [facility] | | | DEPARTMENT OF | | | PATHOLOGY | + + + + + + + + | Performing | Address | City/State/Zipcode | Phone Number | | Organization | | | | + + + + + | [facility] DEPARTMENT [facility] | [address] | [place] [address] | | | PATHOLOGY | [address] | | | + + + + + | [facility] DEPARTMENT OF | [address] | [place] [address] | | | PATHOLOGY | [address] | | | + + + + + US KIDNEY BILATERAL (07/07/2002 9:00 AM PDT) + + + + + + | Component | Value | Ref Range | Performed | Pathologist | | | | | At | Signature | + + + + + + | US KIDNEY | Radiologist 1: ANGELES, | | | | | COMPLETE | Yodit MONK-Radiologist | | | | | | 2: LACHO REYNOSO | | | | | | YoditRENAL ULTRASOUND: | | | | | | 07/07/2002 Dictated | | | | | | 07/07/2002 COMPARISON: | | | | | | None. INDICATION: | | | | | | Examination is ordered | | | | | | to rule out | | | | | | hydronephrosis. | | | | | | FINDINGS: Right kidney | | | | | | measures 11.6 cm in | | | | | | length and is normal | | | | | | inechogenicity. No | | | | | | mass, stone, or | | | | | | hydronephrosis is | | | | | | identified. The left | | | | | | kidney measures 12.4 cm | | | | | | in length. There is a | | | | | | wedge-shapedcortical | | | | | | defect at the junction | | | | | | of the mid and lower | | | | | | poles. A 1.2 x0.9 cm | | | | | | hypoechoic, | | | | | | well-circumscribed | | | | | | region with | | | | | | increasedthrough-transmi | | | | | | ssion is present in the | | | | | | mid pole of the left | | | | | | kidney.No vascular flow | | | | | | is identified within it. | | | | | | No hydronephrosis or | | | | | | stoneis identified. The | | | | | | bladder is unremarkable. | | | | | | IMPRESSION: 1. 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 2. 1.2 x 0.9 | | | | | | cm simple renal cyst in | | | | | | the left kidney. 3. No | | | | | | evidence of | | | | | | hydronephrosis. END | | | | | | OF IMPRESSION: | | | | + + + + + + + + | Specimen | + + | | + + + + + | Narrative | Performed At | + + + | Ordered by TATI SAAB M.D. | | + + + + +---------+ + + | Performing | Address | City/State/Zipcode | Phone Number | | Organization | | | | + +---------+ + + | [facility] DEPARTMENT [facility] | | | | | RADIOLOGY | | | | + +---------+ + + CBC ONLY WITH PLATELET (07/07/2002 6:00 AM PDT) + + + + + + | Component | Value | Ref Range | Performed | Pathologist | | | | | At | Signature | + + + + + + | WHITE CELL | 13.6 (H) | 4.4 - 11.0 K/cu | [facility] | | | COUNT | | mm | DEPARTMENT | | | | | | OF | | | | | | PATHOLOGY | | + + + + + + | RED CELL | 3.28 (L) | 4.20 - 5.90 | [facility] | | | COUNT | | M/cu mm | DEPARTMENT | | | | | | OF | | | | | | PATHOLOGY | | + + + + + + | HEMOGLOBIN | 9.5 (L) | 13.0 - 17.5 | [facility] | | | | | g/dL | DEPARTMENT | | | | | | OF | | | | | | PATHOLOGY | | + + + + + + | HEMATOCRIT | 27.4 (L) | 38.0 - 50.4 % | [facility] | | | | | | DEPARTMENT | | | | | | OF | | | | | | PATHOLOGY | | + + + + + + | MCV | 83.6 | 80.0 - 96.0 fL | [facility] | | | | | | DEPARTMENT | | | | | | OF | | | | | | PATHOLOGY | | + + + + + + | MCH | 29.0 | 28.5 - 32.3 pg | [facility] | | | | | | DEPARTMENT | | | | | | OF | | | | | | PATHOLOGY | | + + + + + + | MCHC | 34.6 | 33.4 - 35.5 | [facility] | | | | | g/dL | DEPARTMENT | | | | | | OF | | | | | | PATHOLOGY | | + + + + + + | RDW | 14.6 | 11.5 - 15.0 % | [facility] | | | | | | DEPARTMENT | | | | | | OF | | | | | | PATHOLOGY | | + + + + + + | PLATELET | 614 | K/cu mm | [facility] | | | COUNT | | | DEPARTMENT | | | | | | OF | | | | | | PATHOLOGY | | + + + + + + | MPV | 6.8 (L) | 7.4 - 10.4 fL | [facility] | | | | | | DEPARTMENT | | | | | | OF | | | | | | PATHOLOGY | | + + + + + + + + | Specimen | + + | | + + + + + | Narrative | Performed At | + + + | Ordered by TATI SAAB | [facility] | | | DEPARTMENT OF | | | PATHOLOGY | + + + + + + + + | Performing | Address | City/State/Zipcode | Phone Number | | Organization | | | | + + + + + | [facility]MENT [facility] | [address] | [place] [address] | | | PATHOLOGY | [address] | | | + + + + + | [facility]MENT [facility] | [address] | [place] [address] | | | PATHOLOGY | [address] | | | + + + + + BASIC METABOLIC SET (07/07/2002 6:00 AM PDT) + +---------+ + + + | Component | Value | Ref Range | Performed | Pathologist | | | | | At | Signature | + +---------+ + + + | GLUCOSE, | 125 (H) | 65 - 110 mg/dL | [facility] | | | PLASMA | | | DEPARTMENT | | | (LAB) | | | OF | | | | | | PATHOLOGY | | + +---------+ + + + | BUN, PLASMA | 13 | 6 - 20 mg/dL | [facility] | | | (LAB) | | | DEPARTMENT | | | | | | OF | | | | | | PATHOLOGY | | + +---------+ + + + | CREATININE | 2.0 (H) | 0.7 - 1.3 mg/dL | [facility] | | | PLASMA | | | DEPARTMENT | | | (LAB) | | | OF | | | | | | PATHOLOGY | | + +---------+ + + + | SODIUM, | 137 | 136 - 145 | [facility] | | | PLASMA | | mmol/L | DEPARTMENT | | | (LAB) | | | OF | | | | | | PATHOLOGY | | + +---------+ + + + | POTASSIUM, | 4.2 | 3.5 - 5.1 | [facility] | | | PLASMA | | mmol/L | DEPARTMENT | | | (LAB) | | | OF | | | | | | PATHOLOGY | | + +---------+ + + + | CHLORIDE, | 100 | 98 - 107 mmol/L | [facility] | | | PLASMA | | | DEPARTMENT | | | (LAB) | | | OF | | | | | | PATHOLOGY | | + +---------+ + + + | TOTAL CO2, | 28 | 23 - 29 mmol/L | [facility] | | | PLASMA | | | DEPARTMENT | | | (LAB) | | | OF | | | | | | PATHOLOGY | | + +---------+ + + + | CALCIUM, | 8.9 | 8.5 - 10.5 | [facility] | | | PLASMA | | mg/dL | DEPARTMENT | | | (LAB) | | | OF | | | | | | PATHOLOGY | | + +---------+ + + + + + | Specimen | + + | | + + + + + | Narrative | Performed At | + + + | Ordered by TATI SAAB | [facility] | | | DEPARTMENT OF | | | PATHOLOGY | + + + + + + + + | Performing | Address | City/State/Zipcode | Phone Number | | Organization | | | | + + + + + | [facility] | [id number] | [place] [address] | | | PATHOLOGY | [address] | | | + + + + + | [facility] | [address] | [place] [address] | | | PATHOLOGY | [address] | | | + + + + + YULIANA RASMUSSEN & JOSLYN (07/06/2002 7:00 AM PDT) + + + + + + | Component | Value | Ref Range | Performed | Pathologist | | | | | At | Signature | + + + + + + | SOURCE BODY | Left Hand | | | | | SITE | | | | | + + + + + + | CULTURE | Blood Culture | | | | | RESULT | | | | | | | Source.................. | | | | | | : Left Hand | | | | | | Preliminary | | | | | | Report......: Blood | | | | | | Culture Received. No | | | | | | Growth to Date. | | | | | | Culture | | | | | | Report............: | | | | | | Final Report: No | | | | | | Bacteria or Yeast | | | | | | | | | | | | | | | | | | isolated at 5 days. | | | | + + + + + + + + | Specimen | + + | | + + + + + | Narrative | Performed At | + + + | Ordered by TATI SAAB | | + + + + + + + + | Performing | Address | City/State/Zipcode | Phone Number | | Organization | | | | + + + + + | [facility] | [address] | [place] [address] | | | LAB-MICRO | | | | + + + + + YULIANA RASMUSSEN (07/06/2002 6:55 AM PDT) + + + + + + | Component | Value | Ref Range | Performed | Pathologist | | | | | At | Signature | + + + + + + | SOURCE BODY | Left Antecubital | | | | | SITE | | | | | + + + + + + | CULTURE | Blood Culture | | | | | RESULT | | | | | | | Source.................. | | | | | | : Left Antecubital | | | | | | Preliminary | | | | | | Report......: Blood | | | | | | Culture Received. No | | | | | | Growth to Date. | | | | | | Culture | | | | | | Report............: | | | | | | Final Report: No | | | | | | Bacteria or Yeast | | | | | | | | | | | | | | | | | | isolated at 5 days. | | | | + + + + + + + + | Specimen | + + | | + + + + + | Narrative | Performed At | + + + | Ordered mika SAAB | | + + + + + + + + | Performing | Address | City/State/Zipcode | Phone Number | | Organization | | | | + + + + + | [facility] | [address] | [place] [address] | | | LAB-MICRO | | | | + + + + + CBC ONLY WITH PLATELET (07/06/2002 6:55 AM PDT) + + + + + + | Component | Value | Ref Range | Performed | Pathologist | | | | | At | Signature | + + + + + + | WHITE CELL | 14.7 (H) | 4.4 - 11.0 K/cu | [facility] | | | COUNT | | mm | DEPARTMENT | | | | | | OF | | | | | | PATHOLOGY | | + + + + + + | RED CELL | 3.31 (L) | 4.20 - 5.90 | [facility] | | | COUNT | | M/cu mm | DEPARTMENT | | | | | | OF | | | | | | PATHOLOGY | | + + + + + + | HEMOGLOBIN | 9.5 (L) | 13.0 - 17.5 | [facility] | | | | | g/dL | DEPARTMENT | | | | | | OF | | | | | | PATHOLOGY | | + + + + + + | HEMATOCRIT | 27.7 (L) | 38.0 - 50.4 % | [facility] | | | | | | DEPARTMENT | | | | | | OF | | | | | | PATHOLOGY | | + + + + + + | MCV | 83.5 | 80.0 - 96.0 fL | [facility] | | | | | | DEPARTMENT | | | | | | OF | | | | | | PATHOLOGY | | + + + + + + | MCH | 28.6 | 28.5 - 32.3 pg | [facility] | | | | | | DEPARTMENT | | | | | | OF | | | | | | PATHOLOGY | | + + + + + + | MCHC | 34.2 | 33.4 - 35.5 | [facility] | | | | | g/dL | DEPARTMENT | | | | | | OF | | | | | | PATHOLOGY | | + + + + + + | RDW | 14.9 | 11.5 - 15.0 % | [facility] | | | | | | DEPARTMENT | | | | | | OF | | | | | | PATHOLOGY | | + + + + + + | PLATELET | 635 | K/cu mm | [facility] | | | COUNT | | | DEPARTMENT | | | | | | OF | | | | | | PATHOLOGY | | + + + + + + | MPV | 6.9 (L) | 7.4 - 10.4 fL | [facility] | | | | | | DEPARTMENT | | | | | | OF | | | | | | PATHOLOGY | | + + + + + + + + | Specimen | + + | | + + + + + | Narrative | Performed At | + + + | Ordered by TATI SAAB | [facility] | | | DEPARTMENT OF | | | PATHOLOGY | + + + + + + + + | Performing | Address | City/State/Zipcode | Phone Number | | Organization | | | | + + + + + | [facility] DEPARTMENT [facility] | [address] | [place] [address] | | | PATHOLOGY | [address] | | | + + + + + | [facility] DEPARTMENT OF | [facility] | [place] [address] | | | PATHOLOGY | [address] | | | + + + + + BASIC METABOLIC SET (07/06/2002 6:55 AM PDT) + +---------+ + + + | Component | Value | Ref Range | Performed | Pathologist | | | | | At | Signature | + +---------+ + + + | GLUCOSE, | 120 (H) | 65 - 110 mg/dL | [facility] | | | PLASMA | | | DEPARTMENT | | | (LAB) | | | OF | | | | | | PATHOLOGY | | + +---------+ + + + | BUN, PLASMA | 15 | 6 - 20 mg/dL | [facility] | | | (LAB) | | | DEPARTMENT | | | | | | OF | | | | | | PATHOLOGY | | + +---------+ + + + | CREATININE | 1.9 (H) | 0.7 - 1.3 mg/dL | [facility] | | | PLASMA | | | DEPARTMENT | | | (LAB) | | | OF | | | | | | PATHOLOGY | | + +---------+ + + + | SODIUM, | 136 | 136 - 145 | [facility] | | | PLASMA | | mmol/L | DEPARTMENT | | | (LAB) | | | OF | | | | | | PATHOLOGY | | + +---------+ + + + | POTASSIUM, | 4.0 | 3.5 - 5.1 | [facility] | | | PLASMA | | mmol/L | DEPARTMENT | | | (LAB) | | | OF | | | | | | PATHOLOGY | | + +---------+ + + + | CHLORIDE, | 99 | 98 - 107 mmol/L | [facility] | | | PLASMA | | | DEPARTMENT | | | (LAB) | | | OF | | | | | | PATHOLOGY | | + +---------+ + + + | TOTAL CO2, | 27 | 23 - 29 mmol/L | [facility] | | | PLASMA | | | DEPARTMENT | | | (LAB) | | | OF | | | | | | PATHOLOGY | | + +---------+ + + + | CALCIUM, | 9.1 | 8.5 - 10.5 | [facility] | | | PLASMA | | mg/dL | DEPARTMENT | | | (LAB) | | | OF | | | | | | PATHOLOGY | | + +---------+ + + + + + | Specimen | + + | | + + + + + | Narrative | Performed At | + + + | Ordered by TATI SAAB | [facility] | | | DEPARTMENT OF | | | PATHOLOGY | + + + + + + + + | Performing | Address | City/State/Zipcode | Phone Number | | Organization | | | | + + + + + | [facility] DEPARTMENT OF | [address] | [place] [address] | | | PATHOLOGY | [address] | | | + + + + + | [facility] DEPARTMENT OF | [address] | [place] [address] | | | PATHOLOGY | [address] | | | + + + + + GENTAMYCIN(TOX) (07/05/2002 11:40 PM PDT) + + + + + + | Component | Value | Ref Range | Performed | Pathologist | | | | | At | Signature | + + + + + + | GENTAMYCIN | 1.5 (L) | 5.0 - 8.0 ug/mL | [facility] | | | (TOX) | | | DEPARTMENT | | | | | | OF | | | | | | PATHOLOGY | | + + + + + + | PEAK/TROUGH | Peak | | [facility] | | | (TOX) | | | DEPARTMENT | | | | | | OF | | | | | | PATHOLOGY | | + + + + + + | DRAW | 30 MINUTES BEFORE DOSE | | [facility] | | | TIME/DOSE | | | DEPARTMENT | | | DETAILS | | | OF | | | | | | PATHOLOGY | | + + + + + + + + | Specimen | + + | | + + + + + | Narrative | Performed At | + + + | Ordered by TATI SAAB | [facility] | | | DEPARTMENT OF | | | PATHOLOGY | + + + + + + + + | Performing | Address | City/State/Zipcode | Phone Number | | Organization | | | | + + + + + | [facility] | [address] | [place] [address] | | | PATHOLOGY | [address] | | | + + + + + | [facility] | [address] [place] [address] | [place] [address] | | | PATHOLOGY | [address] | | | + + + + + VANCOMYCIN(TOX) (07/05/2002 9:05 PM PDT) + + + + + + | Component | Value | Ref Range | Performed | Pathologist | | | | | At | Signature | + + + + + + | VANCOMYCIN( | 17.4 (L) | 20.0 - 50.0 | [facility] | | | TOX) | | ug/mL | DEPARTMENT | | | | | | OF | | | | | | PATHOLOGY | | + + + + + + | PEAK/TROUGH | Peak | | [facility] | | | (TOX) | | | DEPARTMENT | | | | | | OF | | | | | | PATHOLOGY | | + + + + + + + + | Specimen | + + | | + + + + + | Narrative | Performed At | + + + | Ordered by ROGELIO SPIVEY | [facility] | | | DEPARTMENT OF | | | PATHOLOGY | + + + + + + + + | Performing | Address | City/State/Zipcode | Phone Number | | Organization | | | | + + + + + | [facility] | [address] | [place] [address] | | | PATHOLOGY | [address] | | | + + + + + | [facility] | [address] [place] [address] | [place] [address] | | | PATHOLOGY | [address] | | | + + + + + COMP METABOLIC SET (07/05/2002 11:20 AM PDT) + +---------+ + + + | Component | Value | Ref Range | Performed | Pathologist | | | | | At | Signature | + +---------+ + + + | GLUCOSE, | 151 (H) | 65 - 110 mg/dL | [facility] | | | PLASMA | | | DEPARTMENT | | | (LAB) | | | OF | | | | | | PATHOLOGY | | + +---------+ + + + | BUN, PLASMA | 14 | 6 - 20 mg/dL | [facility] | | | (LAB) | | | DEPARTMENT | | | | | | OF | | | | | | PATHOLOGY | | + +---------+ + + + | CREATININE | 1.9 (H) | 0.7 - 1.3 mg/dL | [facility] | | | PLASMA | | | DEPARTMENT | | | (LAB) | | | OF | | | | | | PATHOLOGY | | + +---------+ + + + | TOTAL | 6.7 | 6.1 - 7.9 g/dL | [facility] | | | PROTEIN, | | | DEPARTMENT | | | PLASMA | | | OF | | | (LAB) | | | PATHOLOGY | | + +---------+ + + + | ALBUMIN, | 2.4 (L) | 3.5 - 4.7 g/dL | [facility] | | | PLASMA | | | DEPARTMENT | | | (LAB) | | | OF | | | | | | PATHOLOGY | | + +---------+ + + + | CALCIUM, | 9.0 | 8.5 - 10.5 | [facility] | | | PLASMA | | mg/dL | DEPARTMENT | | | (LAB) | | | OF | | | | | | PATHOLOGY | | + +---------+ + + + | BILIRUBIN | 0.6 | 0.3 - 1.2 mg/dL | [facility] | | | TOTAL | | | DEPARTMENT | | | | | | OF | | | | | | PATHOLOGY | | + +---------+ + + + | ALK PHOS | 191 (H) | 53 - 128 U/L | [facility] | | | | | | DEPARTMENT | | | | | | OF | | | | | | PATHOLOGY | | + +---------+ + + + | AST(SGOT) | 29 | 15 - 41 U/L | [facility] | | | | | | DEPARTMENT | | | | | | OF | | | | | | PATHOLOGY | | + +---------+ + + + | SODIUM, | 134 (L) | 136 - 145 | [facility] | | | PLASMA | | mmol/L | DEPARTMENT | | | (LAB) | | | OF | | | | | | PATHOLOGY | | + +---------+ + + + | POTASSIUM, | 4.2 | 3.5 - 5.1 | [facility] | | | PLASMA | | mmol/L | DEPARTMENT | | | (LAB) | | | OF | | | | | | PATHOLOGY | | + +---------+ + + + | CHLORIDE, | 94 (L) | 98 - 107 mmol/L | [facility] | | | PLASMA | | | DEPARTMENT | | | (LAB) | | | OF | | | | | | PATHOLOGY | | + +---------+ + + + | TOTAL CO2, | 29 | 23 - 29 mmol/L | [facility] | | | PLASMA | | | DEPARTMENT | | | (LAB) | | | OF | | | | | | PATHOLOGY | | + +---------+ + + + | ALT (SGPT) | 124 (H) | 13 - 48 U/L | [facility] | | | | | | DEPARTMENT | | | | | | OF | | | | | | PATHOLOGY | | + +---------+ + + + + + | Specimen | + + | | + + + + + | Narrative | Performed At | + + + | Ordered by TATI SAAB | [facility] | | | DEPARTMENT OF | | | PATHOLOGY | + + + + + + + + | Performing | Address | City/State/Zipcode | Phone Number | | Organization | | | | + + + + + | [facility] | [address] | [place] [address] | | | PATHOLOGY | [address] | | | + + + + + | [facility] | [address] [place] [address] | [place] [address] | | | PATHOLOGY | [address] | | | + + + + + COMP METABOLIC SET (07/05/2002 8:55 AM PDT) + +---------+ + + + | Component | Value | Ref Range | Performed | Pathologist | | | | | At | Signature | + +---------+ + + + | GLUCOSE, | 115 (H) | 65 - 110 mg/dL | [facility] | | | PLASMA | | | DEPARTMENT | | | (LAB) | | | OF | | | | | | PATHOLOGY | | + +---------+ + + + | BUN, PLASMA | 15 | 6 - 20 mg/dL | [facility] | | | (LAB) | | | DEPARTMENT | | | | | | OF | | | | | | PATHOLOGY | | + +---------+ + + + | CREATININE | 1.8 (H) | 0.7 - 1.3 mg/dL | [facility] | | | PLASMA | | | DEPARTMENT | | | (LAB) | | | OF | | | | | | PATHOLOGY | | + +---------+ + + + | TOTAL | 6.7 | 6.1 - 7.9 g/dL | [facility] | | | PROTEIN, | | | DEPARTMENT | | | PLASMA | | | OF | | | (LAB) | | | PATHOLOGY | | + +---------+ + + + | ALBUMIN, | 2.4 (L) | 3.5 - 4.7 g/dL | [facility] | | | PLASMA | | | DEPARTMENT | | | (LAB) | | | OF | | | | | | PATHOLOGY | | + +---------+ + + + | CALCIUM, | 9.0 | 8.5 - 10.5 | [facility] | | | PLASMA | | mg/dL | DEPARTMENT | | | (LAB) | | | OF | | | | | | PATHOLOGY | | + +---------+ + + + | BILIRUBIN | 0.7 | 0.3 - 1.2 mg/dL | [facility] | | | TOTAL | | | DEPARTMENT | | | | | | OF | | | | | | PATHOLOGY | | + +---------+ + + + | ALK PHOS | 196 (H) | 53 - 128 U/L | [facility] | | | | | | DEPARTMENT | | | | | | OF | | | | | | PATHOLOGY | | + +---------+ + + + | AST(SGOT) | 29 | 15 - 41 U/L | [facility] | | | | | | DEPARTMENT | | | | | | OF | | | | | | PATHOLOGY | | + +---------+ + + + | SODIUM, | 133 (L) | 136 - 145 | [facility] | | | PLASMA | | mmol/L | DEPARTMENT | | | (LAB) | | | OF | | | | | | PATHOLOGY | | + +---------+ + + + | POTASSIUM, | 4.0 | 3.5 - 5.1 | [facility] | | | PLASMA | | mmol/L | DEPARTMENT | | | (LAB) | | | OF | | | | | | PATHOLOGY | | + +---------+ + + + | CHLORIDE, | 97 (L) | 98 - 107 mmol/L | [facility] | | | PLASMA | | | DEPARTMENT | | | (LAB) | | | OF | | | | | | PATHOLOGY | | + +---------+ + + + | TOTAL CO2, | 28 | 23 - 29 mmol/L | [facility] | | | PLASMA | | | DEPARTMENT | | | (LAB) | | | OF | | | | | | PATHOLOGY | | + +---------+ + + + | ALT (SGPT) | 129 (H) | 13 - 48 U/L | [facility] | | | | | | DEPARTMENT | | | | | | OF | | | | | | PATHOLOGY | | + +---------+ + + + + + | Specimen | + + | | + + + + + | Narrative | Performed At | + + + | Ordered by TATI SAAB | [facility] | | | DEPARTMENT OF | | | PATHOLOGY | + + + + + + + + | Performing | Address | City/State/Zipcode | Phone Number | | Organization | | | | + + + + + | [facility] DEPARTMENT OF | [address] | [place] [address] | | | PATHOLOGY | [address] | | | + + + + + | [facility] DEPARTMENT OF | [address] | [place] [address] | | | PATHOLOGY | [address] | | | + + + + + CULT, BLOOD ULISSES & JOSLYN (07/05/2002 7:20 AM PDT) + + + + + + | Component | Value | Ref Range | Performed | Pathologist | | | | | At | Signature | + + + + + + | SOURCE BODY | Left Hand | | | | | SITE | | | | | + + + + + + | CULTURE | Blood Culture | | | | | RESULT | | | | | | | Source.................. | | | | | | : Left Hand | | | | | | Preliminary | | | | | | Report......: Blood | | | | | | Culture Received. No | | | | | | Growth to Date. | | | | | | Culture | | | | | | Report............: | | | | | | Final Report: No | | | | | | Bacteria or Yeast | | | | | | | | | | | | | | | | | | isolated at 5 days. | | | | + + + + + + + + | Specimen | + + | | + + + + + | Narrative | Performed At | + + + | Ordered by TATI SAAB | | + + + + + + + + | Performing | Address | City/State/Zipcode | Phone Number | | Organization | | | | + + + + + | [facility] | [address] | [place] [address] | | | LAB-MICRO | | | | + + + + + YULIANA RASMUSSEN (07/05/2002 7:10 AM PDT) + + + + + + | Component | Value | Ref Range | Performed | Pathologist | | | | | At | Signature | + + + + + + | SOURCE BODY | Left Antecubital | | | | | SITE | | | | | + + + + + + | CULTURE | Blood Culture | | | | | RESULT | | | | | | | Source.................. | | | | | | : Left Antecubital | | | | | | Preliminary | | | | | | Report......: Blood | | | | | | Culture Received. No | | | | | | Growth to Date. | | | | | | Culture | | | | | | Report............: | | | | | | Final Report: No | | | | | | Bacteria or Yeast | | | | | | | | | | | | | | | | | | isolated at 5 days. | | | | + + + + + + + + | Specimen | + + | | + + + + + | Narrative | Performed At | + + + | Ordered mika SAAB | | + + + + + + + + | Performing | Address | City/State/Zipcode | Phone Number | | Organization | | | | + + + + + | [facility] | [address] | [place] [address] | | | LAB-MICRO | | | | + + + + + DIFFERENTIAL (07/05/2002 7:10 AM PDT) + + + + + + | Component | Value | Ref Range | Performed | Pathologist | | | | | At | Signature | + + + + + + | NEUTROPHIL | 83 (H) | 50 - 70 % | [facility] | | | % | | | DEPARTMENT | | | | | | OF | | | | | | PATHOLOGY | | + + + + + + | LYMPHOCYTE | 5 (L) | 18 - 42 % | [facility] | | | % | | | DEPARTMENT | | | | | | OF | | | | | | PATHOLOGY | | + + + + + + | MONOCYTE % | 6 | 2 - 8 % | [facility] | | | | | | DEPARTMENT | | | | | | OF | | | | | | PATHOLOGY | | + + + + + + | EOS % | 0 (L) | 1 - 3 % | [facility] | | | | | | DEPARTMENT | | | | | | OF | | | | | | PATHOLOGY | | + + + + + + | BASO % | 2 | <3 % | [facility] | | | | | | DEPARTMENT | | | | | | OF | | | | | | PATHOLOGY | | + + + + + + | NEUTROPHIL | 12.5 (H) | 1.8 - 7.7 K/cu | [facility] | | | # | | mm | DEPARTMENT | | | | | | OF | | | | | | PATHOLOGY | | + + + + + + | LYMPHOCYTE | 0.7 (L) | 1.0 - 4.8 K/cu | [facility] | | | # | | mm | DEPARTMENT | | | | | | OF | | | | | | PATHOLOGY | | + + + + + + | MONOCYTE # | 0.9 (H) | 0.1 - 0.6 K/cu | [facility] | | | | | mm | DEPARTMENT | | | | | | OF | | | | | | PATHOLOGY | | + + + + + + | EOS # | 0.0 | <0.6 K/cu mm | [facility] | | | | | | DEPARTMENT | | | | | | OF | | | | | | PATHOLOGY | | + + + + + + | BASO # | 0.3 (H) | <0.2 | [facility] | | | | | | DEPARTMENT | | | | | | OF | | | | | | PATHOLOGY | | + + + + + + + + | Specimen | + + | | + + + + + | Narrative | Performed At | + + + | Ordered by TATI SAAB *Corrected* 07/05/02 14:18 | [facility] | | BASO ABSOLUTE #: 0.0 >> 0.3 9 *Corrected* 07/05/02 | DEPARTMENT OF | | 14:18 EOS ABSOLUTE #: 0.1 >> 0.0 *Corrected* 07/05/02 | PATHOLOGY | | 14:18 LYMPHOCYTE ABSOLUTE #: 1.2 >> 0.8 9 *Corrected* | | | 07/05/02 14:18 MONOCYTE ABSOLUTE #: 1.1 >> 0.9 | | | *Corrected* 07/05/02 14:18 NEUTROPHIL ABSOLUTE #: 12.6 >> | | | 12.4 | | + + + + + + + + | Performing | Address | City/State/Zipcode | Phone Number | | Organization | | | | + + + + + | [facility] DEPARTMENT [facility] | [address] | [place] [address] | | | PATHOLOGY | [address] | | | + + + + + | [facility] DEPARTMENT OF | [address] | [place] [address] | | | PATHOLOGY | [address] | | | + + + + + CBC, WITH DIFFERENTIAL (07/05/2002 7:10 AM PDT) + + + + + + | Component | Value | Ref Range | Performed | Pathologist | | | | | At | Signature | + + + + + + | WHITE CELL | 15.0 (H) | 4.4 - 11.0 K/cu | [facility] | | | COUNT | | mm | DEPARTMENT | | | | | | OF | | | | | | PATHOLOGY | | + + + + + + | RED CELL | 3.50 (L) | 4.20 - 5.90 | [facility] | | | COUNT | | M/cu mm | DEPARTMENT | | | | | | OF | | | | | | PATHOLOGY | | + + + + + + | RED CELL | Normal RBC morphology. | | [facility] | | | COMMENTS | | | DEPARTMENT | | | | | | OF | | | | | | PATHOLOGY | | + + + + + + | HEMOGLOBIN | 10.1 (L) | 13.0 - 17.5 | [facility] | | | | | g/dL | DEPARTMENT | | | | | | OF | | | | | | PATHOLOGY | | + + + + + + | HEMATOCRIT | 29.1 (L) | 38.0 - 50.4 % | [facility] | | | | | | DEPARTMENT | | | | | | OF | | | | | | PATHOLOGY | | + + + + + + | MCV | 83.0 | 80.0 - 96.0 fL | [facility] | | | | | | DEPARTMENT | | | | | | OF | | | | | | PATHOLOGY | | + + + + + + | MCH | 28.8 | 28.5 - 32.3 pg | [facility] | | | | | | DEPARTMENT | | | | | | OF | | | | | | PATHOLOGY | | + + + + + + | MCHC | 34.7 | 33.4 - 35.5 | [facility] | | | | | g/dL | DEPARTMENT | | | | | | OF | | | | | | PATHOLOGY | | + + + + + + | RDW | 14.8 | 11.5 - 15.0 % | [facility] | | | | | | DEPARTMENT | | | | | | OF | | | | | | PATHOLOGY | | + + + + + + | PLATELET | 581 | K/cu mm | [facility] | | | COUNT | | | DEPARTMENT | | | | | | OF | | | | | | PATHOLOGY | | + + + + + + | MPV | 7.1 (L) | 7.4 - 10.4 fL | [facility] | | | | | | DEPARTMENT | | | | | | OF | | | | | | PATHOLOGY | | + + + + + + | CBC | Final Report: Manual | | [facility] | | | COMMENTS | differential has | | DEPARTMENT | | | | replaced preliminary | | OF | | | | autodifferential. | | PATHOLOGY | | + + + + + + + + | Specimen | + + | | + + + + + | Narrative | Performed At | + + + | Ordered by TATI SAAB *Corrected* 07/05/02 14:18 | [facility] | | BASO ABSOLUTE #: 0.0 >> 0.3 *Corrected* 07/05/02 | DEPARTMENT OF | | 14:18 EOS ABSOLUTE #: 0.1 >> 0.0 *Corrected* 07/05/02 | PATHOLOGY | | 14:18 LYMPHOCYTE ABSOLUTE #: 1.2 >> 0.8 *Corrected* | | | 07/05/02 14:18 MONOCYTE ABSOLUTE #: 1.1 >> 0.9 | | | *Corrected* 07/05/02 14:18 NEUTROPHIL ABSOLUTE #: 12.6 >> | | | 12.4 | | + + + + + + + + | Performing | Address | City/State/Zipcode | Phone Number | | Organization | | | | + + + + + | [facility] | [address] | [place] [address] | | | PATHOLOGY | [address] | | | + + + + + | [facility] | [address] | [place] [address] | | | PATHOLOGY | [address] | | | + + + + + MANUAL DIFFERENTIAL (07/05/2002 7:10 AM PDT) + + + + + + | Component | Value | Ref Range | Performed | Pathologist | | | | | At | Signature | + + + + + + | PLATELET | INCREASED | | [facility] | | | ESTIMATE | | | DEPARTMENT | | | | | | OF | | | | | | PATHOLOGY | | + + + + + + + + | Specimen | + + | | + + + + + | Narrative | Performed At | + + + | Ordered by TATI SAAB [id number] *Corrected* 07/05/02 14:18 | [facility] | | BASO ABSOLUTE #: 0.0 >> 0.3 *Corrected* 07/05/02 | DEPARTMENT OF | | 14:18 EOS ABSOLUTE #: 0.1 >> 0.0 *Corrected* 07/05/02 | PATHOLOGY | | 14:18 LYMPHOCYTE ABSOLUTE #: 1.2 >> 0.8 *Corrected* | | | 07/05/02 14:18 MONOCYTE ABSOLUTE #: 1.1 >> 0.9 | | | 739 *Corrected* 07/05/02 14:18 NEUTROPHIL ABSOLUTE #: 12.6 >> | | | 12.4 | | + + + + + + + + | Performing | Address | City/State/Zipcode | Phone Number | | Organization | | | | + + + + + | [facility] DEPARTMENT | [facility] | [place] [address] | | | PATHOLOGY | [address] | | | + + + + + | [facility] DEPARTMENT OF | [address] | [place] [address] | | | PATHOLOGY | [address] | | | + + + + + EXTENDED DIFF (07/05/2002 7:10 AM PDT) + +---------+ + + + | Component | Value | Ref Range | Performed | Pathologist | | | | | At | Signature | + +---------+ + + + | METAMYELOCY | 4 | % | [facility] | | | AKIRA % | | | DEPARTMENT | | | | | | OF | | | | | | PATHOLOGY | | + +---------+ + + + | MYELOCYTES | 0 | % | [facility] | | | % | | | DEPARTMENT | | | | | | OF | | | | | | PATHOLOGY | | + +---------+ + + + | NRBC | 0 | <1 /100 WBC | [facility] | | | | | | DEPARTMENT | | | | | | OF | | | | | | PATHOLOGY | | + +---------+ + + + | BANDS # | 0.0 (L) | 0.0 - 1.1 | [facility] | | | | | | DEPARTMENT | | | | | | OF | | | | | | PATHOLOGY | | + +---------+ + + + | BANDS % | 0 | <11 % | [facility] | | | | | | DEPARTMENT | | | | | | OF | | | | | | PATHOLOGY | | + +---------+ + + + | ATYPICAL | 0 | | [facility] | | | CELL % | | | DEPARTMENT | | | | | | OF | | | | | | PATHOLOGY | | + +---------+ + + + | PROMYELOCYT | 0 | % | [facility] | | | ES % | | | DEPARTMENT | | | | | | OF | | | | | | PATHOLOGY | | + +---------+ + + + + + | Specimen | + + | | + + + + + | Narrative | Performed At | + + + | Ordered by TATI SAAB *Corrected* 07/05/02 14:18 | [facility] | | BASO ABSOLUTE #: 0.0 >> 0.3 *Corrected* 07/05/02 | DEPARTMENT OF | | 14:18 EOS ABSOLUTE #: 0.1 >> 0.0 *Corrected* 07/05/02 | PATHOLOGY | | 14:18 LYMPHOCYTE ABSOLUTE #: 1.2 >> 0.8 *Corrected* | | | 07/05/02 14:18 MONOCYTE ABSOLUTE #: 1.1 >> 0.9 | | | *Corrected* 07/05/02 14:18 NEUTROPHIL ABSOLUTE #: 12.6 >> | | | 12.4 | | + + + + + + + + | Performing | Address | City/State/Zipcode | Phone Number | | Organization | | | | + + + + + | [facility] | [address] | [place] [address] | | | PATHOLOGY | [address] | | | + + + + + | [facility] | [address] | [place] [address] | | | PATHOLOGY | [address] | | | + + + + + COMP METABOLIC SET (07/05/2002 7:10 AM PDT) + + + + + + | Component | Value | Ref Range | Performed | Pathologist | | | | | At | Signature | + + + + + + | GLUCOSE, | Un/mislbl | 65 - 110 mg/dL | [facility] | | | PLASMA | | | DEPARTMENT | | | (LAB) | | | OF | | | | | | PATHOLOGY | | + + + + + + | BUN, PLASMA | Un/mislbl | 6 - 20 mg/dL | [facility] | | | (LAB) | | | DEPARTMENT | | | | | | OF | | | | | | PATHOLOGY | | + + + + + + | CREATININE | Un/mislbl | 0.7 - 1.3 mg/dL | [facility] | | | PLASMA | | | DEPARTMENT | | | (LAB) | | | OF | | | | | | PATHOLOGY | | + + + + + + | TOTAL | Un/mislbl | 6.1 - 7.9 g/dL | [facility] | | | PROTEIN, | | | DEPARTMENT | | | PLASMA | | | OF | | | (LAB) | | | PATHOLOGY | | + + + + + + | ALBUMIN, | Un/mislbl | 3.5 - 4.7 g/dL | [facility] | | | PLASMA | | | DEPARTMENT | | | (LAB) | | | OF | | | | | | PATHOLOGY | | + + + + + + | CALCIUM, | Un/mislbl | 8.5 - 10.5 | [facility] | | | PLASMA | | mg/dL | DEPARTMENT | | | (LAB) | | | OF | | | | | | PATHOLOGY | | + + + + + + | BILIRUBIN | Un/mislbl | 0.3 - 1.2 mg/dL | [facility] | | | TOTAL | | | DEPARTMENT | | | | | | OF | | | | | | PATHOLOGY | | + + + + + + | ALK PHOS | Un/mislbl | 53 - 128 U/L | [facility] | | | | | | DEPARTMENT | | | | | | OF | | | | | | PATHOLOGY | | + + + + + + | AST(SGOT) | Un/mislbl | 15 - 41 U/L | [facility] | | | | | | DEPARTMENT | | | | | | OF | | | | | | PATHOLOGY | | + + + + + + | SODIUM, | Un/mislbl | 136 - 145 | [facility] | | | PLASMA | | mmol/L | DEPARTMENT | | | (LAB) | | | OF | | | | | | PATHOLOGY | | + + + + + + | POTASSIUM, | Un/mislbl | 3.5 - 5.1 | [facility] | | | PLASMA | | mmol/L | DEPARTMENT | | | (LAB) | | | OF | | | | | | PATHOLOGY | | + + + + + + | CHLORIDE, | Un/mislbl | 98 - 107 mmol/L | [facility] | | | PLASMA | | | DEPARTMENT | | | (LAB) | | | OF | | | | | | PATHOLOGY | | + + + + + + | TOTAL CO2, | Un/mislbl | 23 - 29 mmol/L | [facility] | | | PLASMA | | | DEPARTMENT | | | (LAB) | | | OF | | | | | | PATHOLOGY | | + + + + + + | ALT (SGPT) | Un/mislbl | 13 - 48 U/L | [facility] | | | | | | DEPARTMENT | | | | | | OF | | | | | | PATHOLOGY | | + + + + + + + + | Specimen | + + | | + + + + + | Narrative | Performed At | + + + | Ordered by TATI SAAB | [facility] | | | DEPARTMENT OF | | | PATHOLOGY | + + + + + + + + | Performing | Address | City/State/Zipcode | Phone Number | | Organization | | | | + + + + + | [facility] | [address] | [place] [address] | | | PATHOLOGY | [address] | | | + + + + + | [facility] | [address] | [place] [address] | | | PATHOLOGY | [address] | | | + + + + + VANCOMYCIN(TOX) (07/04/2002 8:40 PM PDT) + + + + + + | Component | Value | Ref Range | Performed | Pathologist | | | | | At | Signature | + + + + + + | VANCOMYCIN( | 17.8 (H) | 5.0 - 15.0 | [facility] | | | TOX) | | ug/mL | DEPARTMENT | | | | | | OF | | | | | | PATHOLOGY | | + + + + + + | PEAK/TROUGH | Trough | | [facility] | | | (TOX) | | | DEPARTMENT | | | | | | OF | | | | | | PATHOLOGY | | + + + + + + | DRAW | 15 min before IV dose | | [facility] | | | TIME/DOSE | | | DEPARTMENT | | | DETAILS | | | OF | | | | | | PATHOLOGY | | + + + + + + + + | Specimen | + + | | + + + + + | Narrative | Performed At | + + + | Ordered by TATI SAAB | [facility] | | | DEPARTMENT OF | | | PATHOLOGY | + + + + + + + + | Performing | Address | City/State/Zipcode | Phone Number | | Organization | | | | + + + + + | [facility] | [address] | [place] [address] | | | PATHOLOGY | [address] | | | + + + + + | [facility] | [address] | [place] [address] | | | PATHOLOGY | [address] | | | + + + + + BLOOD BANK PRODUCT (07/04/2002 4:15 PM PDT) + + + + + + | Component | Value | Ref Range | Performed | Pathologist | | | | | At | Signature | + + + + + + | PRODUCT | RED CELL LEUKOREDUCED | | [facility] | | | DESCRIPTION | | | DEPARTMENT | | | | | | OF | | | | | | PATHOLOGY | | + + + + + + | PRODUCT | [id number] | | [facility] | | | UNIT # | | | DEPARTMENT | | | | | | OF | | | | | | PATHOLOGY | | + + + + + + | UNIT ABO | O | | [facility] | | | | | | DEPARTMENT | | | | | | OF | | | | | | PATHOLOGY | | + + + + + + | UNIT RH | POS | | [facility] | | | | | | DEPARTMENT | | | | | | OF | | | | | | PATHOLOGY | | + + + + + + | STATUS OF | Transfused | | [facility] | | | UNIT | | | DEPARTMENT | | | | | | OF | | | | | | PATHOLOGY | | + + + + + + + + | Specimen | + + | | + + + + + | Narrative | Performed At | + + + | Ordered by TATI SAAB | [facility] | | | DEPARTMENT OF | | | PATHOLOGY | + + + + + + + + | Performing | Address | City/State/Zipcode | Phone Number | | Organization | | | | + + + + + | [facility] DEPARTMENT OF | [address] | [place] [address] | | | PATHOLOGY | [address] | | | + + + + + | [facility] DEPARTMENT OF | [address] | [place] [address] | | | PATHOLOGY | [address] | | | + + + + + BLOOD BANK PRODUCT (07/04/2002 4:15 PM PDT) + + + + + + | Component | Value | Ref Range | Performed | Pathologist | | | | | At | Signature | + + + + + + | PRODUCT | RED CELL LEUKOREDUCED | | [facility] | | | DESCRIPTION | | | DEPARTMENT | | | | | | OF | | | | | | PATHOLOGY | | + + + + + + | PRODUCT | [id number] | | [facility] | | | UNIT # | | | DEPARTMENT | | | | | | OF | | | | | | PATHOLOGY | | + + + + + + | UNIT ABO | O | | [facility] | | | | | | DEPARTMENT | | | | | | OF | | | | | | PATHOLOGY | | + + + + + + | UNIT RH | POS | | [facility] | | | | | | DEPARTMENT | | | | | | OF | | | | | | PATHOLOGY | | + + + + + + | STATUS OF | Transfused | | [facility] | | | UNIT | | | DEPARTMENT | | | | | | OF | | | | | | PATHOLOGY | | + + + + + + + + | Specimen | + + | | + + + + + | Narrative | Performed At | + + + | Ordered by TATI SAAB | [facility] | | | DEPARTMENT OF | | | PATHOLOGY | + + + + + + + + | Performing | Address | City/State/Zipcode | Phone Number | | Organization | | | | + + + + + | [facility] DEPARTMENT OF | [address] | [place] [address] | | | PATHOLOGY | [address] | | | + + + + + | [facility] OF | [facility] | [place] [address] | | | PATHOLOGY | [address] | | | + + + + + ANTIBODY SCREEN & CROSSMATCH (07/04/2002 4:15 PM PDT) + +-------+ + + + | Component | Value | Ref Range | Performed | Pathologist | | | | | At | Signature | + +-------+ + + + | ABO GROUP | O | | [facility] | | | | | | DEPARTMENT | | | | | | OF | | | | | | PATHOLOGY | | + +-------+ + + + | RH TYPE | POS | | [facility] | | | | | | DEPARTMENT | | | | | | OF | | | | | | PATHOLOGY | | + +-------+ + + + | ANTIBODY | NEG | | [facility] | | | SCREEN | | | DEPARTMENT | | | | | | OF | | | | | | PATHOLOGY | | + +-------+ + + + + + | Specimen | + + | | + + + + + | Narrative | Performed At | + + + | Ordered by TATI ABREU 07/08/02 @ 0700 | [facility] | | | DEPARTMENT OF | | | PATHOLOGY | + + + + + + + + | Performing | Address | City/State/Zipcode | Phone Number | | Organization | | | | + + + + + | [facility] DEPARTMENT OF | [address] | [place] [address] | | | PATHOLOGY | [address] | | | + + + + + | [facility] DE[facility]MENT OF | [address] | [place] [address] | | | PATHOLOGY | [address] | | | + + + + + C-REACTIVE PROTEIN (07/04/2002 1:00 PM PDT) + + + + + + | Component | Value | Ref Range | Performed | Pathologist | | | | | At | Signature | + + + + + + | C-REACTIVE | 19.7 (H) | <0.9 mg/dl | | | | PROTEIN | | | | | + + + + + + + + | Specimen | + + | | + + + + + | Narrative | Performed At | + + + | [facility] | | + + + + + + + + | Performing | Address | City/State/Zipcode | Phone Number | | Organization | | | | + + + + + | [facility] | [address] | [place] [address] | | | LABORATORY | | | | + + + + + SEDIMENTATION RATE (07/04/2002 1:00 PM PDT) + +-------+ + + + | Component | Value | Ref Range | Performed | Pathologist | | | | | At | Signature | + +-------+ + + + | SEDIMENTATI | > 140 | mm/hr | [facility] | | | ON RATE | | | DEPARTMENT | | | | | | OF | | | | | | PATHOLOGY | | + +-------+ + + + + + | Specimen | + + | | + + + + + | Narrative | Performed At | + + + | Ordered by TATI SAAB | [facility] | | | DEPARTMENT OF | | | PATHOLOGY | + + + + + + + + | Performing | Address | City/State/Zipcode | Phone Number | | Organization | | | | + + + + + | [facility] DEPARTMENT OF | [address] | [place] [address] | | | PATHOLOGY | [address] | | | + + + + + | [facility] DEPARTMENT OF | [address] | [place] [address] | | | PATHOLOGY | [address] | | | + + + + + GGT (07/04/2002 1:00 PM PDT) + +---------+ + + + | Component | Value | Ref Range | Performed | Pathologist | | | | | At | Signature | + +---------+ + + + | GAMMA | 373 (H) | 8 - 65 U/L | [facility] | | | GLUTAMYL | | | DEPARTMENT | | | TRANS | | | OF | | | | | | PATHOLOGY | | + +---------+ + + + + + | Specimen | + + | | + + + + + | Narrative | Performed At | + + + | Ordered by TATI SAAB | [facility] | | | DEPARTMENT OF | | | PATHOLOGY | + + + + + + + + | Performing | Address | City/State/Zipcode | Phone Number | | Organization | | | | + + + + + | [facility] DEPARTMENT OF | [address] | [place] [address] | | | PATHOLOGY | [address] | | | + + + + + | [facility] DEPARTMENT OF | [address] | [place] [address] | | | PATHOLOGY | [address] | | | + + + + + ANTIBODY SCREEN & CROSSMATCH (07/04/2002 12:10 PM PDT) + +-------+ + + + | Component | Value | Ref Range | Performed | Pathologist | | | | | At | Signature | + +-------+ + + + | ABO GROUP | O | | [facility] | | | | | | DEPARTMENT | | | | | | OF | | | | | | PATHOLOGY | | + +-------+ + + + | RH TYPE | POS | | [facility] | | | | | | DEPARTMENT | | | | | | OF | | | | | | PATHOLOGY | | + +-------+ + + + | ANTIBODY | NEG | | [facility] | | | SCREEN | | | DEPARTMENT | | | | | | OF | | | | | | PATHOLOGY | | + +-------+ + + + + + | Specimen | + + | | + + + + + | Narrative | Performed At | + + + | Ordered by TATI VILLEDA 07/08/02@0700 INFSUB | [facility] | | POSS.CONTAMINATION INFSUB.POSS.CONTAMINATION | DEPARTMENT OF | | | PATHOLOGY | + + + + + + + + | Performing | Address | City/State/Zipcode | Phone Number | | Organization | | | | + + + + + | [facility] DEPARTMENT | [address] | [place] [address] | | | PATHOLOGY | [address] | | | + + + + + | [facility] | [address] | [place] [address] | | | PATHOLOGY | [address] | | | + + + + + C-REACTIVE PROTEIN (07/04/2002 11:04 AM PDT) + + + + + + | Component | Value | Ref Range | Performed | Pathologist | | | | | At | Signature | + + + + + + | C-REACTIVE | Specimen collected in | mg/dl | | | | PROTEIN | wrong type of tube. | | | | + + + + + + + + | Specimen | + + | | + + + + + | Narrative | Performed At | + + + | Ordered mika SAAB | | + + + + + + + + | Performing | Address | City/State/Zipcode | Phone Number | | Organization | | | | + + + + + | [facility] | [address] | [place] [address] | | | LABORATORY | | | | + + + + + CULT, BLOOD ULISSES & JOSLYN (07/04/2002 7:20 AM PDT) + + + + + + | Component | Value | Ref Range | Performed | Pathologist | | | | | At | Signature | + + + + + + | SOURCE BODY | Right Antecubital | | | | | SITE | | | | | + + + + + + | CULTURE | Blood Culture | | | | | RESULT | | | | | | | Source.................. | | | | | | : Right Antecubital | | | | | | Preliminary | | | | | | Report......: Blood | | | | | | Culture Received. No | | | | | | Growth to Date. | | | | | | Culture | | | | | | Report............: | | | | | | Final Report: No | | | | | | Bacteria or Yeast | | | | | | | | | | | | | | | | | | isolated at 5 days. | | | | + + + + + + + + | Specimen | + + | | + + + + + | Narrative | Performed At | + + + | Ordered by TATI SAAB | | + + + + + + + + | Performing | Address | City/State/Zipcode | Phone Number | | Organization | | | | + + + + + | [facility] | [address] | [place] [address] | | | LAB-MICRO | | | | + + + + + CULT, BLOOD BACTI & JOSLYN (07/04/2002 7:15 AM PDT) + + + + + + | Component | Value | Ref Range | Performed | Pathologist | | | | | At | Signature | + + + + + + | SOURCE BODY | Left Hand | | | | | SITE | | | | | + + + + + + | CULTURE | Blood Culture | | | | | RESULT | | | | | | | Source.................. | | | | | | : Left Hand | | | | | | Preliminary | | | | | | Report......: Blood | | | | | | Culture Received. No | | | | | | Growth to Date. | | | | | | Culture | | | | | | Report............: | | | | | | Final Report: No | | | | | | Bacteria or Yeast | | | | | | | | | | | | | | | | | | isolated at 5 days. | | | | + + + + + + + + | Specimen | + + | | + + + + + | Narrative | Performed At | + + + | [facility] | | + + + + + + + + | Performing | Address | City/State/Zipcode | Phone Number | | Organization | | | | + + + + + | [facility] | [address] | [place] [address] | | | LAB-MICRO | | | | + + + + + DIFFERENTIAL (07/04/2002 7:15 AM PDT) + + + + + + | Component | Value | Ref Range | Performed | Pathologist | | | | | At | Signature | + + + + + + | NEUTROPHIL | 86 (H) | 50 - 70 % | [facility] | | | % | | | DEPARTMENT | | | | | | OF | | | | | | PATHOLOGY | | + + + + + + | LYMPHOCYTE | 8 (L) | 18 - 42 % | [facility] | | | % | | | DEPARTMENT | | | | | | OF | | | | | | PATHOLOGY | | + + + + + + | MONOCYTE % | 6 | 2 - 8 % | [facility] | | | | | | DEPARTMENT | | | | | | OF | | | | | | PATHOLOGY | | + + + + + + | EOS % | 1 | 1 - 3 % | [facility] | | | | | | DEPARTMENT | | | | | | OF | | | | | | PATHOLOGY | | + + + + + + | BASO % | 0 | <3 % | [facility] | | | | | | DEPARTMENT | | | | | | OF | | | | | | PATHOLOGY | | + + + + + + | NEUTROPHIL | 15.1 (H) | 1.8 - 7.7 K/cu | [facility] | | | # | | mm | DEPARTMENT | | | | | | OF | | | | | | PATHOLOGY | | + + + + + + | LYMPHOCYTE | 1.4 | 1.0 - 4.8 K/cu | [facility] | | | # | | mm | DEPARTMENT | | | | | | OF | | | | | | PATHOLOGY | | + + + + + + | MONOCYTE # | 1.1 (H) | 0.1 - 0.6 K/cu | [facility] | | | | | mm | DEPARTMENT | | | | | | OF | | | | | | PATHOLOGY | | + + + + + + | EOS # | 0.2 | <0.6 K/cu mm | [facility] | | | | | | DEPARTMENT | | | | | | OF | | | | | | PATHOLOGY | | + + + + + + | BASO # | 0.0 | <0.2 | [facility] | | | | | | DEPARTMENT | | | | | | OF | | | | | | PATHOLOGY | | + + + + + + + + | Specimen | + + | | + + + + + | Narrative | Performed At | + + + | Ordered by TATI SAAB | [facility] | | | DEPARTMENT OF | | | PATHOLOGY | + + + + + + + + | Performing | Address | City/State/Zipcode | Phone Number | | Organization | | | | + + + + + | [facility] DEPARTMENT OF | [address] | [place] [address] | | | PATHOLOGY | [address] | | | + + + + + | [facility] DEPARTMENT | [address] | [place] [address] | | | PATHOLOGY | [address] | | | + + + + + CBC, WITH DIFFERENTIAL (07/04/2002 7:15 AM PDT) + + + + + + | Component | Value | Ref Range | Performed | Pathologist | | | | | At | Signature | + + + + + + | WHITE CELL | 17.6 (H) | 4.4 - 11.0 K/cu | [facility] | | | COUNT | | mm | DEPARTMENT | | | | | | OF | | | | | | PATHOLOGY | | + + + + + + | RED CELL | 2.99 (L) | 4.20 - 5.90 | [facility] | | | COUNT | | M/cu mm | DEPARTMENT | | | | | | OF | | | | | | PATHOLOGY | | + + + + + + | HEMOGLOBIN | 8.7 (L) | 13.0 - 17.5 | [facility] | | | | | g/dL | DEPARTMENT | | | | | | OF | | | | | | PATHOLOGY | | + + + + + + | HEMATOCRIT | 24.9 (L) | 38.0 - 50.4 % | [facility] | | | | | | DEPARTMENT | | | | | | OF | | | | | | PATHOLOGY | | + + + + + + | MCV | 83.3 | 80.0 - 96.0 fL | [facility] | | | | | | DEPARTMENT | | | | | | OF | | | | | | PATHOLOGY | | + + + + + + | MCH | 29.0 | 28.5 - 32.3 pg | [facility] | | | | | | DEPARTMENT | | | | | | OF | | | | | | PATHOLOGY | | + + + + + + | MCHC | 34.8 | 33.4 - 35.5 | [facility] | | | | | g/dL | DEPARTMENT | | | | | | OF | | | | | | PATHOLOGY | | + + + + + + | RDW | 15.1 (H) | 11.5 - 15.0 % | [facility] | | | | | | DEPARTMENT | | | | | | OF | | | | | | PATHOLOGY | | + + + + + + | PLATELET | 614 | K/cu mm | [facility] | | | COUNT | | | DEPARTMENT | | | | | | OF | | | | | | PATHOLOGY | | + + + + + + | MPV | 7.1 (L) | 7.4 - 10.4 fL | [facility] | | | | | | DEPARTMENT | | | | | | OF | | | | | | PATHOLOGY | | + + + + + + | CBC | Final automated | | [facility] | | | COMMENTS | differential report. | | DEPARTMENT | | | | Smear reviewed. | | OF | | | | | | PATHOLOGY | | + + + + + + + + | Specimen | + + | | + + + + + | Narrative | Performed At | + + + | Ordered by TATI SAAB | [facility] | | | DEPARTMENT OF | | | PATHOLOGY | + + + + + + + + | Performing | Address | City/State/Zipcode | Phone Number | | Organization | | | | + + + + + | [facility] DEPARTMENT | [address] | [place] [address] | | | PATHOLOGY | [address] | | | + + + + + | [facility] DEPARTMENT OF | [facility] | [place] [address] | | | PATHOLOGY | [address] | | | + + + + + PROTHROMBIN TIME (07/04/2002 7:15 AM PDT) + + + + + + | Component | Value | Ref Range | Performed | Pathologist | | | | | At | Signature | + + + + + + | INR | 1.19Comment: | INR | [facility] | | | | PT INR Therapeutic | | DEPARTMENT | | | | ranges for full | | OF | | | | anticoagulation: | | PATHOLOGY | | | | INR for | | | | | | Venous Thromboembolism | | | | | | | | | | | | (2.0-3.0)INR | | | | | | INR for most | | | | | | patients with mech. | | | | | | valves (2.5-3.5)INR | | | | + + + + + + + + | Specimen | + + | | + + + + + | Narrative | Performed At | + + + | Ordered by TATI SAAB New method and Reference Ranges | [facility] | | effective 05/21/02 for : APTT, Thrombin Time, Fibrinogen, and | DEPARTMENT OF | | D-Dimer. | PATHOLOGY | + + + + + + + + | Performing | Address | City/State/Zipcode | Phone Number | | Organization | | | | + + + + + | [facility] DEPARTMENT OF | [address] | [place] [address] | | | PATHOLOGY | [address] | | | + + + + + | [facility] DEPARTMENT OF | [address] | [place] [address] | | | PATHOLOGY | [address] | | | + + + + + BASIC METABOLIC SET (07/04/2002 7:15 AM PDT) + +---------+ + + + | Component | Value | Ref Range | Performed | Pathologist | | | | | At | Signature | + +---------+ + + + | GLUCOSE, | 120 (H) | 65 - 110 mg/dL | [facility] | | | PLASMA | | | DEPARTMENT | | | (LAB) | | | OF | | | | | | PATHOLOGY | | + +---------+ + + + | BUN, PLASMA | 17 | 6 - 20 mg/dL | [facility] | | | (LAB) | | | DEPARTMENT | | | | | | OF | | | | | | PATHOLOGY | | + +---------+ + + + | CREATININE | 1.8 (H) | 0.7 - 1.3 mg/dL | [facility] | | | PLASMA | | | DEPARTMENT | | | (LAB) | | | OF | | | | | | PATHOLOGY | | + +---------+ + + + | SODIUM, | 134 (L) | 136 - 145 | [facility] | | | PLASMA | | mmol/L | DEPARTMENT | | | (LAB) | | | OF | | | | | | PATHOLOGY | | + +---------+ + + + | POTASSIUM, | 4.1 | 3.5 - 5.1 | [facility] | | | PLASMA | | mmol/L | DEPARTMENT | | | (LAB) | | | OF | | | | | | PATHOLOGY | | + +---------+ + + + | CHLORIDE, | 94 (L) | 98 - 107 mmol/L | [facility] | | | PLASMA | | | DEPARTMENT | | | (LAB) | | | OF | | | | | | PATHOLOGY | | + +---------+ + + + | TOTAL CO2, | 27 | 23 - 29 mmol/L | [facility] | | | PLASMA | | | DEPARTMENT | | | (LAB) | | | OF | | | | | | PATHOLOGY | | + +---------+ + + + | CALCIUM, | 9.0 | 8.5 - 10.5 | [facility] | | | PLASMA | | mg/dL | DEPARTMENT | | | (LAB) | | | OF | | | | | | PATHOLOGY | | + +---------+ + + + + + | Specimen | + + | | + + + + + | Narrative | Performed At | + + + | Ordered by TATI SAAB | [facility] | | | DEPARTMENT OF | | | PATHOLOGY | + + + + + + + + | Performing | Address | City/State/Zipcode | Phone Number | | Organization | | | | + + + + + | [facility] | [address] | [place] [address] | | | PATHOLOGY | [address] | | | + + + + + | [facility] | [address] | [place] [address] | | | PATHOLOGY | [address] | | | + + + + + LIVER SET (07/04/2002 7:15 AM PDT) + +---------+ + + + | Component | Value | Ref Range | Performed | Pathologist | | | | | At | Signature | + +---------+ + + + | ALBUMIN, | 2.4 (L) | 3.5 - 4.7 g/dL | [facility] | | | PLASMA | | | DEPARTMENT | | | (LAB) | | | OF | | | | | | PATHOLOGY | | + +---------+ + + + | BILIRUBIN | 0.7 | 0.3 - 1.2 mg/dL | [facility] | | | TOTAL | | | DEPARTMENT | | | | | | OF | | | | | | PATHOLOGY | | + +---------+ + + + | BILIRUBIN | 0.1 | <0.4 mg/dL | [facility] | | | DIRECT | | | DEPARTMENT | | | | | | OF | | | | | | PATHOLOGY | | + +---------+ + + + | ALK PHOS | 199 (H) | 53 - 128 U/L | [facility] | | | | | | DEPARTMENT | | | | | | OF | | | | | | PATHOLOGY | | + +---------+ + + + | AST(SGOT) | 48 (H) | 15 - 41 U/L | [facility] | | | | | | DEPARTMENT | | | | | | OF | | | | | | PATHOLOGY | | + +---------+ + + + | ALT (SGPT) | 180 (H) | 13 - 48 U/L | [facility] | | | | | | DEPARTMENT | | | | | | OF | | | | | | PATHOLOGY | | + +---------+ + + + | TOTAL | 6.8 | 6.1 - 7.9 g/dL | [facility] | | | PROTEIN, | | | DEPARTMENT | | | PLASMA | | | OF | | | (LAB) | | | PATHOLOGY | | + +---------+ + + + + + | Specimen | + + | | + + + + + | Narrative | Performed At | + + + | Ordered by TATI SAAB | [facility] | | | DEPARTMENT OF | | | PATHOLOGY | + + + + + + + + | Performing | Address | City/State/Zipcode | Phone Number | | Organization | | | | + + + + + | [facility] DEPARTMENT OF | [facility] | [place] [address] | | | PATHOLOGY | [address] | | | + + + + + | [facility] DEPARTMENT OF | [address] | [place] [address] | | | PATHOLOGY | [address] | | | + + + + + GENTAMYCIN(TOX) (07/04/2002 2:10 AM PDT) + + + + + + | Component | Value | Ref Range | Performed | Pathologist | | | | | At | Signature | + + + + + + | GENTAMYCIN | 5.6 | 5.0 - 8.0 ug/mL | [facility] | | | (TOX) | | | DEPARTMENT | | | | | | OF | | | | | | PATHOLOGY | | + + + + + + | PEAK/TROUGH | Peak | | [facility] | | | (TOX) | | | DEPARTMENT | | | | | | OF | | | | | | PATHOLOGY | | + + + + + + | DRAW | 60 MINUTES AFTER DOSE | | [facility] | | | TIME/DOSE | | | DEPARTMENT | | | DETAILS | | | OF | | | | | | PATHOLOGY | | + + + + + + + + | Specimen | + + | | + + + + + | Narrative | Performed At | + + + | Ordered by TATI SAAB | [facility] | | | DEPARTMENT OF | | | PATHOLOGY | + + + + + + + + | Performing | Address | City/State/Zipcode | Phone Number | | Organization | | | | + + + + + | [facility] | [address] | [place] [address] | | | PATHOLOGY | [address] | | | + + + + + | [facility] DEPARTMENT OF | [address] | [place] [address] | | | PATHOLOGY | [address] | | | + + + + + VANCOMYCIN(TOX) (07/03/2002 8:23 PM PDT) + + + + + + | Component | Value | Ref Range | Performed | Pathologist | | | | | At | Signature | + + + + + + | VANCOMYCIN( | 22.2 (H) | 5.0 - 15.0 | [facility] | | | TOX) | | ug/mL | DEPARTMENT | | | | | | OF | | | | | | PATHOLOGY | | + + + + + + | PEAK/TROUGH | Trough | | [facility] | | | (TOX) | | | DEPARTMENT | | | | | | OF | | | | | | PATHOLOGY | | + + + + + + | DRAW | 0 min. before dose | | [facility] | | | TIME/DOSE | | | DEPARTMENT | | | DETAILS | | | OF | | | | | | PATHOLOGY | | + + + + + + + + | Specimen | + + | | + + + + + | Narrative | Performed At | + + + | Ordered by TATI SAAB | [facility] | | | DEPARTMENT OF | | | PATHOLOGY | + + + + + + + + | Performing | Address | City/State/Zipcode | Phone Number | | Organization | | | | + + + + + | [facility] DEPARTMENT OF | [address] | [place] [address] | | | PATHOLOGY | [address] | | | + + + + + | [facility] DEPARTMENT OF | [address] | [place] [address] | | | PATHOLOGY | [address] | | | + + + + + GENTAMYCIN(TOX) (07/03/2002 8:23 PM PDT) + + + + + + | Component | Value | Ref Range | Performed | Pathologist | | | | | At | Signature | + + + + + + | GENTAMYCIN | 1.3 | <2.0 ug/mL | [facility] | | | (TOX) | | | DEPARTMENT | | | | | | OF | | | | | | PATHOLOGY | | + + + + + + | PEAK/TROUGH | Trough | | [facility] | | | (TOX) | | | DEPARTMENT | | | | | | OF | | | | | | PATHOLOGY | | + + + + + + | DRAW | 18 hours 30 min. before | | [facility] | | | TIME/DOSE | dose | | DEPARTMENT | | | DETAILS | | | OF | | | | | | PATHOLOGY | | + + + + + + + + | Specimen | + + | | + + + + + | Narrative | Performed At | + + + | Ordered by TATI SAAB | [facility] | | | DEPARTMENT OF | | | PATHOLOGY | + + + + + + + + | Performing | Address | City/State/Zipcode | Phone Number | | Organization | | | | + + + + + | [facility] DEPARTMENT OF | [address] | [place] [address] | | | PATHOLOGY | [address] | | | + + + + + | [facility] | [address] | [place] [address] | | | PATHOLOGY | [address] | | | + + + + + CULT, URINE BACTI (07/03/2002 1:35 PM PDT) + + + + + + | Component | Value | Ref Range | Performed | Pathologist | | | | | At | Signature | + + + + + + | SOURCE BODY | Clean catch | | | | | SITE | | | | | + + + + + + | CULTURE | Urine Culture | | | | | RESULT | | | | | | | Source...............: | | | | | | Clean catch | | | | | | Culture: Final | | | | | | Report: No growth (< | | | | | | 1,000 col/ml) after | | | | | | 18-24 | | | | | | | | | | | | hours Final Report | | | | + + + + + + + + | Specimen | + + | | + + + + + | Narrative | Performed At | + + + | Ordered by TAIT SAAB | | + + + + + + + + | Performing | Address | City/State/Zipcode | Phone Number | | Organization | | | | + + + + + | [facility] | [address] | [place] [address] | | | LAB-MICRO | | | | + + + + + EOSINOPHILS, URINE (SPOT) (07/03/2002 1:35 PM PDT) + + + + + + | Component | Value | Ref Range | Performed | Pathologist | | | | | At | Signature | + + + + + + | URINE | NoneSeen | None Seen % | [facility] | | | [facility] | | | DEPARTMENT | | | | | | OF | | | | | | PATHOLOGY | | + + + + + + + + | Specimen | + + | | + + + + + | Narrative | Performed At | + + + | Ordered by TATI SAAB | [facility] | | | DEPARTMENT OF | | | PATHOLOGY | + + + + + + + + | Performing | Address | City/State/Zipcode | Phone Number | | Organization | | | | + + + + + | [facility] | [address] | [place] [address] | | | PATHOLOGY | [address] | | | + + + + + | [facility] | [address] | [place] [address] | | | PATHOLOGY | [address] | | | + + + + + VIDHI BRISENO ONLY (07/03/2002 1:35 PM PDT) + + + + + + | Component | Value | Ref Range | Performed | Pathologist | | | | | At | Signature | + + + + + + | COLOR(UR) | Yellow | | [facility] | | | | | | DEPARTMENT | | | | | | OF | | | | | | PATHOLOGY | | + + + + + + | APPEARANCE | Clear | | [facility] | | | | | | DEPARTMENT | | | | | | OF | | | | | | PATHOLOGY | | + + + + + + | GLUCOSE(UR) | Negative | mg/dL | [facility] | | | | | | DEPARTMENT | | | | | | OF | | | | | | PATHOLOGY | | + + + + + + | BILIRUBIN | Negative | | [facility] | | | | | | DEPARTMENT | | | | | | OF | | | | | | PATHOLOGY | | + + + + + + | KETONES | Negative | mg/dL | [facility] | | | | | | DEPARTMENT | | | | | | OF | | | | | | PATHOLOGY | | + + + + + + | SPECIFIC | <=1.005 | 1.005 - 1.030 | [facility] | | | GRAVITY | | | DEPARTMENT | | | | | | OF | | | | | | PATHOLOGY | | + + + + + + | BLOOD | Trace | | [facility] | | | | | | DEPARTMENT | | | | | | OF | | | | | | PATHOLOGY | | + + + + + + | PH(UR) | 5.5 | 5.0 - 8.0 | [facility] | | | | | | DEPARTMENT | | | | | | OF | | | | | | PATHOLOGY | | + + + + + + | PROTEIN(LAB | Trace | mg/dL | [facility] | | | ) | | | DEPARTMENT | | | | | | OF | | | | | | PATHOLOGY | | + + + + + + | UROBILINOGE | 0.2 | 0 - 0.2 CRISTELA | [facility] | | | N | | UNITS | DEPARTMENT | | | | | | OF | | | | | | PATHOLOGY | | + + + + + + | NITRITES | Negative | Negative | [facility] | | | | | | DEPARTMENT | | | | | | OF | | | | | | PATHOLOGY | | + + + + + + | LEUKOCYTE | Negative | Negative | [facility] | | | ESTERASE | | | DEPARTMENT | | | | | | OF | | | | | | PATHOLOGY | | + + + + + + + + | Specimen | + + | | + + + + + | Narrative | Performed At | + + + | Ordered by TATI SAAB | [facility] | | | DEPARTMENT OF | | | PATHOLOGY | + + + + + + + + | Performing | Address | City/State/Zipcode | Phone Number | | Organization | | | | + + + + + | [facility] | [address] | [place] [address] | | | PATHOLOGY | [address] | | | + + + + + | [facility] | [address] | [place] [address] | | | PATHOLOGY | [address] | | | + + + + + URINE, MICROSCOPIC EXAM (07/03/2002 1:35 PM PDT) + +-------+ + + + | Component | Value | Ref Range | Performed | Pathologist | | | | | At | Signature | + +-------+ + + + | SQUAMOUS | None | /hpf | [facility] | | | EPITHELIAL | | | DEPARTMENT | | | | | | OF | | | | | | PATHOLOGY | | + +-------+ + + + | NON-SQUAMOU | None | /hpf | [facility] | | | S EPITH | | | DEPARTMENT | | | | | | OF | | | | | | PATHOLOGY | | + +-------+ + + + | RED CELLS | None | 0 - 3 /hpf | [facility] | | | | | | DEPARTMENT | | | | | | OF | | | | | | PATHOLOGY | | + +-------+ + + + | WHITE CELLS | 0-2 | 0 - 5 /hpf | [facility] | | | | | | DEPARTMENT | | | | | | OF | | | | | | PATHOLOGY | | + +-------+ + + + | BACTERIA | None | /hpf | [facility] | | | | | | DEPARTMENT | | | | | | OF | | | | | | PATHOLOGY | | + +-------+ + + + | MUCOUS | None | /lpf | [facility] | | | | | | DEPARTMENT | | | | | | OF | | | | | | PATHOLOGY | | + +-------+ + + + | HYALINE | None | 0 - 1 /lpf | [facility] | | | CASTS | | | DEPARTMENT | | | | | | OF | | | | | | PATHOLOGY | | + +-------+ + + + | GRANULAR | 0-3 | /lpf | [facility] | | | CASTS | | | DEPARTMENT | | | | | | OF | | | | | | PATHOLOGY | | + +-------+ + + + | CELLULAR | None | /lpf | [facility] | | | CASTS | | | DEPARTMENT | | | | | | OF | | | | | | PATHOLOGY | | + +-------+ + + + | AMORPHOUS | None | /hpf | [facility] | | | URATES | | | DEPARTMENT | | | | | | OF | | | | | | PATHOLOGY | | + +-------+ + + + | AMORPHOUS | None | /hpf | [facility] | | | PHOSPHATES | | | DEPARTMENT | | | | | | OF | | | | | | PATHOLOGY | | + +-------+ + + + | CALCIUM | None | /hpf | [facility] | | | OXALATE | | | DEPARTMENT | | | PHYLICIA | | | OF | | | | | | PATHOLOGY | | + +-------+ + + + | URIC ACID | None | /hpf | [facility] | | | CRYSTALS | | | DEPARTMENT | | | | | | OF | | | | | | PATHOLOGY | | + +-------+ + + + | TRIPLE P04 | None | /hpf | [facility] | | | CRYSTALS | | | DEPARTMENT | | | | | | OF | | | | | | PATHOLOGY | | + +-------+ + + + | YEAST (LAB) | None | /hpf | [facility] | | | | | | DEPARTMENT | | | | | | OF | | | | | | PATHOLOGY | | + +-------+ + + + | TRICHOMONAS | None | /hpf | [facility] | | | | | | DEPARTMENT | | | | | | OF | | | | | | PATHOLOGY | | + +-------+ + + + + + | Specimen | + + | | + + + + + | Narrative | Performed At | + + + | Ordered by TATI SAAB | [facility] | | | DEPARTMENT OF | | | PATHOLOGY | + + + + + + + + | Performing | Address | City/State/Zipcode | Phone Number | | Organization | | | | + + + + + | [facility] DEPARTMENT OF | [address] [place] [address] | [place] [address] | | | PATHOLOGY | [address] | | | + + + + + | [facility]MENT OF | [address] [place] [address] | [place] [address] | | | PATHOLOGY | [address] | | | + + + + + CREATININE, URINE (07/03/2002 1:35 PM PDT) + +-------+ + + + | Component | Value | Ref Range | Performed | Pathologist | | | | | At | Signature | + +-------+ + + + | CREATININE | 76.9 | mg/dL | [facility] | | | CONC UR | | | DEPARTMENT | | | | | | OF | | | | | | PATHOLOGY | | + +-------+ + + + + + | Specimen | + + | | + + + + + | Narrative | Performed At | + + + | Ordered by TATI SAAB Urine Chemistry Master | [facility] | | | DEPARTMENT OF | | | PATHOLOGY | + + + + + + + + | Performing | Address | City/State/Zipcode | Phone Number | | Organization | | | | + + + + + | [facility] DEPARTMENT OF | [address] | [place] [address] | | | PATHOLOGY | [address] | | | + + + + + | [facility] OF | [address] | [place] [address] | | | PATHOLOGY | [address] | | | + + + + + SODIUM TOTAL, URINE (07/03/2002 1:35 PM PDT) + +-------+ + + + | Component | Value | Ref Range | Performed | Pathologist | | | | | At | Signature | + +-------+ + + + | SODIUM CONC | 19 | mmol/L | [facility] | | | URINE | | | DEPARTMENT | | | | | | OF | | | | | | PATHOLOGY | | + +-------+ + + + + + | Specimen | + + | | + + + + + | Narrative | Performed At | + + + | Ordered by TATI SAAB Urine Chemistry Master | [facility] | | | DEPARTMENT OF | | | PATHOLOGY | + + + + + + + + | Performing | Address | City/State/Zipcode | Phone Number | | Organization | | | | + + + + + | [facility] DEPARTMENT OF | [address] | [place] [address] | | | PATHOLOGY | [address] | | | + + + + + | [facility] DEPARTMENT OF | [address] | [place] [address] | | | PATHOLOGY | [address] | | | + + + + + TOTAL RESULTS FOR,URINE (07/03/2002 1:35 PM PDT) + + + + + + | Component | Value | Ref Range | Performed | Pathologist | | | | | At | Signature | + + + + + + | COLLECTION | RandomComment: | hr | [facility] | | | INTERVAL, | Total Normals are in | | DEPARTMENT | | | UR | units per 24 Hrs.; | | OF | | | | Patient Total result is | | PATHOLOGY | | | | calculated from | | | | | | actual collection | | | | | | interval and total | | | | | | volume. | | | | + + + + + + | URINE | Spot | mL | [facility] | | | VOLUME - | | | DEPARTMENT | | | [facility] | | | OF | | | | | | PATHOLOGY | | + + + + + + + + | Specimen | + + | | + + + + + | Narrative | Performed At | + + + | Ordered by TATI SAAB Urine Chemistry Master | [facility] | | | DEPARTMENT OF | | | PATHOLOGY | + + + + + + + + | Performing | Address | City/State/Zipcode | Phone Number | | Organization | | | | + + + + + | [facility] | [address] | [place] [address] | | | PATHOLOGY | [address] | | | + + + + + | [facility] | [facility] [address] | [place] [address] | | | PATHOLOGY | [address] | | | + + + + + URINE CHEMISTRY MASTER (07/03/2002 1:35 PM PDT) + + | Specimen | + + | | + + + + + | Narrative | Performed At | + + + | Ordered by TATI SAAB Urine Chemistry Master | [facility] | | | DEPARTMENT OF | | | PATHOLOGY | + + + + + + + + | Performing | Address | City/State/Zipcode | Phone Number | | Organization | | | | + + + + + | [facility] DEPARTMENT OF | [address] | [place] [address] | | | PATHOLOGY | [address] | | | + + + + + | [facility] DEPARTMENT OF | [address] | [place] [address] | | | PATHOLOGY | [address] | | | + + + + + SPINE LUMBOSACRAL 2 VIEWS (07/03/2002 12:19 PM PDT) + + + + + + | Component | Value | Ref Range | Performed | Pathologist | | | | | At | Signature | + + + + + + | SPINE | Radiologist 1: | | | | | LUMBOSACRAL | SONY QUINONES, | | | | | 2 VIEWS | M.D.LUMBAR SPINE: | | | | | | 07/03/2002 | | | | | | Dictated: 07/03/2002 | | | | | | TECHNIQUE: Two views. | | | | | | COMPARISON: None. | | | | | | FINDINGS: The | | | | | | vertebral bodies are in | | | | | | normal alignment | | | | | | withpreservation of | | | | | | vertebral body height. | | | | | | The disc heights are | | | | | | alsopreserved. There | | | | | | is multilevel mild | | | | | | spurring. Mild facet | | | | | | arthropathyis noted of | | | | | | the lower lumbar spine. | | | | | | The sacroiliac joints | | | | | | arepreserved. | | | | | | IMPRESSION: 1. Minimal | | | | | | multilevel degenerative | | | | | | disc disease. 2. No | | | | | | fracture or | | | | | | malalignment. END OF | | | | | | IMPRESSION: | | | | + + + + + + + + | Specimen | + + | | + + + + + | Narrative | Performed At | + + + | Ordered by TATI SAAB M.D. | | + + + + +---------+ + + | Performing | Address | City/State/Zipcode | Phone Number | | Organization | | | | + +---------+ + + | [facility] DEPARTMENT OF | | | | | RADIOLOGY | | | | + +---------+ + + HIP 2 VIEWS RIGHT (07/03/2002 12:19 PM PDT) + + + + + + | Component | Value | Ref Range | Performed | Pathologist | | | | | At | Signature | + + + + + + | HIP 2 VIEWS | Radiologist 1: | | | | | RIGHT | SONY QUINONES, | | | | | | M.D.RIGHT HIP: | | | | | | 07/03/2002 | | | | | | Dictated: 07/03/2002 | | | | | | TECHNIQUE: Two views. | | | | | | COMPARISON: None. | | | | | | FINDINGS: The osseous | | | | | | structures are intact | | | | | | with no fracture or | | | | | | focaldestruction. The | | | | | | hip joint space is | | | | | | preserved with fluid | | | | | | femoral headcontour. | | | | | | No soft tissue | | | | | | abnormality is | | | | | | identified. There are | | | | | | several synovial | | | | | | herniation pits | | | | | | identified in | | | | | | thesuperolateral femoral | | | | | | neck and femoral head, | | | | | | better seen on the | | | | | | APlumbar spine | | | | | | radiograph. There is | | | | | | no evidence for | | | | | | destruction ofarticular | | | | | | surfaces or of joint | | | | | | space narrowing to | | | | | | indicate | | | | | | septicarthritis. | | | | | | IMPRESSION: Unremarkable | | | | | | pelvis radiograph with | | | | | | no radiographic evidence | | | | | | of septicarthritis. | | | | | | If there is strong | | | | | | clinical suspicion, | | | | | | further evaluationcould | | | | | | be performed with an MRI | | | | | | of the right hip. END | | | | | | OF IMPRESSION: | | | | + + + + + + + + | Specimen | + + | | + + + + + | Narrative | Performed At | + + + | Ordered by TATI SAAB M.D. | | + + + + +---------+ + + | Performing | Address | City/State/Zipcode | Phone Number | | Organization | | | | + +---------+ + + | [facility] DEPARTMENT OF | | | | | RADIOLOGY | | | | + +---------+ + + CULT, BLOOD ULISSES & JOSLYN (07/03/2002 11:35 AM PDT) + + + + + + | Component | Value | Ref Range | Performed | Pathologist | | | | | At | Signature | + + + + + + | SOURCE BODY | PICC line Site B | | | | | SITE | | | | | + + + + + + | CULTURE | Blood Culture | | | | | RESULT | | | | | | | Source.................. | | | | | | : [facility] line Site B | | | | | | Preliminary | | | | | | Report......: Blood | | | | | | Culture Received. No | | | | | | Growth to Date. | | | | | | Culture | | | | | | Report............: | | | | | | Final Report: No | | | | | | Bacteria or Yeast | | | | | | | | | | | | | | | | | | isolated at 5 days. | | | | + + + + + + + + | Specimen | + + | | + + + + + | Narrative | Performed At | + + + | Ordered mika SAAB | | + + + + + + + + | Performing | Address | City/State/Zipcode | Phone Number | | Organization | | | | + + + + + | [facility] | [address] | [place] [address] | | | LAB-MICRO | | | | + + + + + CULT, YULIANA TORRES (07/03/2002 11:10 AM PDT) + + + + + + | Component | Value | Ref Range | Performed | Pathologist | | | | | At | Signature | + + + + + + | SOURCE BODY | Left Antecubital | | | | | SITE | | | | | + + + + + + | CULTURE | Blood Culture | | | | | RESULT | | | | | | | Source.................. | | | | | | : Left Antecubital | | | | | | Preliminary | | | | | | Report......: Blood | | | | | | Culture Received. No | | | | | | Growth to Date. | | | | | | Culture | | | | | | Report............: | | | | | | Final Report: No | | | | | | Bacteria or Yeast | | | | | | | | | | | | | | | | | | isolated at 5 days. | | | | + + + + + + + + | Specimen | + + | | + + + + + | Narrative | Performed At | + + + | Ordered by TATI SAAB | | + + + + + + + + | Performing | Address | City/State/Zipcode | Phone Number | | Organization | | | | + + + + + | [facility] | [address] | [place] [address] | | | LAB-MICRO | | | | + + + + + CULT, BLOOD ULISSES & JOSLYN (07/03/2002 10:01 AM PDT) + + + + + + | Component | Value | Ref Range | Performed | Pathologist | | | | | At | Signature | + + + + + + | SOURCE BODY | See cmnt | | | | | SITE | | | | | + + + + + + | CULTURE | See cmnt | | | | | RESULT | | | | | + + + + + + + + | Specimen | + + | | + + + + + | Narrative | Performed At | + + + | Ordered by TATI SAAB [id number] Staff or dialysis draw | | | required. | | + + + + + + + + | Performing | Address | City/State/Zipcode | Phone Number | | Organization | | | | + + + + + | [facility] | [address] | [place] [address] | | | LAB-MICRO | | | | + + + + + FERRITIN (07/03/2002 7:20 AM PDT) + + + + + + | Component | Value | Ref Range | Performed | Pathologist | | | | | At | Signature | + + + + + + | FERRITIN | 451 (H)Comment: | 22 - 322 ng/mL | | | | | Test performed at [facility] | | | | | | [facility] | | | | | | Laboratory | | | | + + + + + + + + | Specimen | + + | | + + + + + | Narrative | Performed At | + + + | Ordered by TATI SAAB | | + + + + + + + + | Performing | Address | City/State/Zipcode | Phone Number | | Organization | | | | + + + + + | [facility] | [address] | [place] [address] | | | LABORATORY | | | | + + + + + METHYLMALONIC ACID, SERUM (07/03/2002 7:20 AM PDT) + + + + + + | Component | Value | Ref Range | Performed | Pathologist | | | | | At | Signature | + + + + + + | METHYLMALON | 0.27Comment: Test | <0.41 umol/L | | | | IC ACID | performed by [facility] | | | | | | Laboratories. | | | | + + + + + + + + | Specimen | + + | | + + + + + | Narrative | Performed At | + + + | Ordered by TATI SAAB | | + + + + + + + + | Performing | Address | City/State/Zipcode | Phone Number | | Organization | | | | + + + + + | [facility] | [address] | [place], [place] | | | [facility] | | [address] | | + + + + + HOMOCYSTEINE, PLASMA, TOTAL (07/03/2002 7:20 AM PDT) + +-------+ + + + | Component | Value | Ref Range | Performed | Pathologist | | | | | At | Signature | + +-------+ + + + | HOMOCYSTEIN | 10.8 | 4.0 - 12.0 | [facility] | | | E,PLASMA,TO | | umol/L | DEPARTMENT | | | [facility] | | | OF | | | | | | PATHOLOGY | | + +-------+ + + + + + | Specimen | + + | | + + + + + | Narrative | Performed At | + + + | Ordered by TATI SAAB | [facility] | | | DEPARTMENT OF | | | PATHOLOGY | + + + + + + + + | Performing | Address | City/State/Zipcode | Phone Number | | Organization | | | | + + + + + | [facility] | [address] | [place] [address] | | | PATHOLOGY | [address] | | | + + + + + | [facility] | [address] | [place] [address] | | | PATHOLOGY | [address] | | | + + + + + RETICULOCYTE COUNT (07/03/2002 7:20 AM PDT) + + + + + + | Component | Value | Ref Range | Performed | Pathologist | | | | | At | Signature | + + + + + + | RETICULOCYT | 1.4 | % | [facility] | | | E COUNT | | | DEPARTMENT | | | | | | OF | | | | | | PATHOLOGY | | + + + + + + | RETIC | 44.2 | 10.0 - 90.0 | [facility] | | | ABSOLUTE # | | K/cu mm | DEPARTMENT | | | | | | OF | | | | | | PATHOLOGY | | + + + + + + | CBC | Final automated | | [facility] | | | COMMENTS | differential report. | | DEPARTMENT | | | | Smear reviewed. | | OF | | | | | | PATHOLOGY | | + + + + + + + + | Specimen | + + | | + + + + + | Narrative | Performed At | + + + | Ordered by TATI SAAB [id number] *Corrected* 07/03/02 09:08 | [facility] | | MAIKEL COMMENTS: Not reported >> PRELIMINARY DIFFERENTIAL! Final | DEPARTMENT OF | | diff to follow. Slide review pending. 225 *Corrected* | PATHOLOGY | | 07/03/02 09:08 CHG:AUTO DIFF: 1 >> Not reported | | + + + + + + + + | Performing | Address | City/State/Zipcode | Phone Number | | Organization | | | | + + + + + | [facility] | [address] | [place] [address] | | | PATHOLOGY | [address] | | | + + + + + | [facility] DEPARTMENT OF | [address] | [place] [address] | | | PATHOLOGY | [address] | | | + + + + + DIFFERENTIAL (07/03/2002 7:20 AM PDT) + + + + + + | Component | Value | Ref Range | Performed | Pathologist | | | | | At | Signature | + + + + + + | NEUTROPHIL | 84 (H) | 50 - 70 % | [facility] | | | % | | | DEPARTMENT | | | | | | OF | | | | | | PATHOLOGY | | + + + + + + | LYMPHOCYTE | 9 (L) | 18 - 42 % | [facility] | | | % | | | DEPARTMENT | | | | | | OF | | | | | | PATHOLOGY | | + + + + + + | MONOCYTE % | 6 | 2 - 8 % | [facility] | | | | | | DEPARTMENT | | | | | | OF | | | | | | PATHOLOGY | | + + + + + + | EOS % | 1 | 1 - 3 % | [facility] | | | | | | DEPARTMENT | | | | | | OF | | | | | | PATHOLOGY | | + + + + + + | BASO % | 0 | <3 % | [facility] | | | | | | DEPARTMENT | | | | | | OF | | | | | | PATHOLOGY | | + + + + + + | NEUTROPHIL | 15.7 (H) | 1.8 - 7.7 K/cu | [facility] | | | # | | mm | DEPARTMENT | | | | | | OF | | | | | | PATHOLOGY | | + + + + + + | LYMPHOCYTE | 1.7 | 1.0 - 4.8 K/cu | [facility] | | | # | | mm | DEPARTMENT | | | | | | OF | | | | | | PATHOLOGY | | + + + + + + | MONOCYTE # | 1.1 (H) | 0.1 - 0.6 K/cu | [facility] | | | | | mm | DEPARTMENT | | | | | | OF | | | | | | PATHOLOGY | | + + + + + + | EOS # | 0.2 | <0.6 K/cu mm | [facility] | | | | | | DEPARTMENT | | | | | | OF | | | | | | PATHOLOGY | | + + + + + + | BASO # | 0.0 | <0.2 | [facility] | | | | | | DEPARTMENT | | | | | | OF | | | | | | PATHOLOGY | | + + + + + + + + | Specimen | + + | | + + + + + | Narrative | Performed At | + + + | Ordered by TATI SAAB 225 *Corrected* 07/03/02 09:08 | [facility] | | HPANEL COMMENTS: Not reported >> PRELIMINARY DIFFERENTIAL! Final | DEPARTMENT OF | | diff to follow. Slide review pending. 225 *Corrected* | PATHOLOGY | | 07/03/02 09:08 CHG:AUTO DIFF: 1 >> Not reported | | + + + + + + + + | Performing | Address | City/State/Zipcode | Phone Number | | Organization | | | | + + + + + | [facility] DEPARTMENT [facility] | [address] | [place] [address] | | | PATHOLOGY | [address] | | | + + + + + | [facility] DEPARTMENT OF | [address] | [place] [address] | | | PATHOLOGY | [address] | | | + + + + + CBC, WITH DIFFERENTIAL (07/03/2002 7:20 AM PDT) + + + + + + | Component | Value | Ref Range | Performed | Pathologist | | | | | At | Signature | + + + + + + | WHITE CELL | 18.7 (H) | 4.4 - 11.0 K/cu | [facility] | | | COUNT | | mm | DEPARTMENT | | | | | | OF | | | | | | PATHOLOGY | | + + + + + + | RED CELL | 3.21 (L) | 4.20 - 5.90 | [facility] | | | COUNT | | M/cu mm | DEPARTMENT | | | | | | OF | | | | | | PATHOLOGY | | + + + + + + | HEMOGLOBIN | 9.2 (L) | 13.0 - 17.5 | [facility] | | | | | g/dL | DEPARTMENT | | | | | | OF | | | | | | PATHOLOGY | | + + + + + + | HEMATOCRIT | 26.6 (L) | 38.0 - 50.4 % | [facility] | | | | | | DEPARTMENT | | | | | | OF | | | | | | PATHOLOGY | | + + + + + + | MCV | 82.8 | 80.0 - 96.0 fL | [facility] | | | | | | DEPARTMENT | | | | | | OF | | | | | | PATHOLOGY | | + + + + + + | MCH | 28.6 | 28.5 - 32.3 pg | [facility] | | | | | | DEPARTMENT | | | | | | OF | | | | | | PATHOLOGY | | + + + + + + | MCHC | 34.5 | 33.4 - 35.5 | [facility] | | | | | g/dL | DEPARTMENT | | | | | | OF | | | | | | PATHOLOGY | | + + + + + + | RDW | 14.8 | 11.5 - 15.0 % | [facility] | | | | | | DEPARTMENT | | | | | | OF | | | | | | PATHOLOGY | | + + + + + + | PLATELET | 687 | K/cu mm | [facility] | | | COUNT | | | DEPARTMENT | | | | | | OF | | | | | | PATHOLOGY | | + + + + + + | MPV | 7.2 (L) | 7.4 - 10.4 fL | [facility] | | | | | | DEPARTMENT | | | | | | OF | | | | | | PATHOLOGY | | + + + + + + | CBC | Final automated | | [facility] | | | COMMENTS | differential report. | | DEPARTMENT | | | | Smear reviewed. | | OF | | | | | | PATHOLOGY | | + + + + + + + + | Specimen | + + | | + + + + + | Narrative | Performed At | + + + | Ordered by TATI SAAB [id number] *Corrected* 07/03/02 09:08 | [facility] | | HPANEL COMMENTS: Not reported >> PRELIMINARY DIFFERENTIAL! Final | DEPARTMENT OF | | diff to follow. Slide review pending. 225 *Corrected* | PATHOLOGY | | 07/03/02 09:08 CHG:AUTO DIFF: 1 >> Not reported | | + + + + + + + + | Performing | Address | City/State/Zipcode | Phone Number | | Organization | | | | + + + + + | [facility] | [address] | [place] [address] | | | PATHOLOGY | [address] | | | + + + + + | [facility] | [address] | [place] [address] | | | PATHOLOGY | [address] | | | + + + + + MANUAL DIFFERENTIAL (07/03/2002 7:20 AM PDT) + + | Specimen | + + | | + + + + + | Narrative | Performed At | + + + | Ordered by TATI SAAB 225 *Corrected* 07/03/02 09:08 | [facility] | | MAIKEL COMMENTS: Not reported >> PRELIMINARY DIFFERENTIAL! Final | DEPARTMENT OF | | diff to follow. Slide review pending. 5 *Corrected* | PATHOLOGY | | 07/03/02 09:08 CHG:AUTO DIFF: 1 >> Not reported | | + + + + + + + + | Performing | Address | City/State/Zipcode | Phone Number | | Organization | | | | + + + + + | [facility] DEPARTMENT [facility] | [address] | [place] [address] | | | PATHOLOGY | [address] | | | + + + + + | [facility] DEPARTMENT [facility] | [address] | [place] [address] | | | PATHOLOGY | [address] | | | + + + + + EXTENDED DIFF (07/03/2002 7:20 AM PDT) + +---------+ + + + | Component | Value | Ref Range | Performed | Pathologist | | | | | At | Signature | + +---------+ + + + | METAMYELOCY | 0 | % | [facility] | | | AKIRA % | | | DEPARTMENT | | | | | | OF | | | | | | PATHOLOGY | | + +---------+ + + + | MYELOCYTES | 0 | % | [facility] | | | % | | | DEPARTMENT | | | | | | OF | | | | | | PATHOLOGY | | + +---------+ + + + | NRBC | 0 | <1 /100 WBC | [facility] | | | | | | DEPARTMENT | | | | | | OF | | | | | | PATHOLOGY | | + +---------+ + + + | BANDS # | 0.0 (L) | 0.0 - 1.1 | [facility] | | | | | | DEPARTMENT | | | | | | OF | | | | | | PATHOLOGY | | + +---------+ + + + | BANDS % | 0 | <11 % | [facility] | | | | | | DEPARTMENT | | | | | | OF | | | | | | PATHOLOGY | | + +---------+ + + + | ATYPICAL | 0 | | [facility] | | | CELL % | | | DEPARTMENT | | | | | | OF | | | | | | PATHOLOGY | | + +---------+ + + + | PROMYELOCYT | 0 | % | [facility] | | | ES % | | | DEPARTMENT | | | | | | OF | | | | | | PATHOLOGY | | + +---------+ + + + + + | Specimen | + + | | + + + + + | Narrative | Performed At | + + + | Ordered by TATI SAAB 225 *Corrected* 07/03/02 09:08 | [facility] | | HPANEL COMMENTS: Not reported >> PRELIMINARY DIFFERENTIAL! Final | DEPARTMENT OF | | diff to follow. Slide review pending. 225 *Corrected* | PATHOLOGY | | 07/03/02 09:08 CHG:AUTO DIFF: 1 >> Not reported | | + + + + + + + + | Performing | Address | City/State/Zipcode | Phone Number | | Organization | | | | + + + + + | [facility] | [address] | [place] [address] | | | PATHOLOGY | [address] | | | + + + + + | [facility] | [address] | [place] [address] | | | PATHOLOGY | [address] | | | + + + + + BASIC METABOLIC SET (07/03/2002 7:20 AM PDT) + +---------+ + + + | Component | Value | Ref Range | Performed | Pathologist | | | | | At | Signature | + +---------+ + + + | GLUCOSE, | 116 (H) | 65 - 110 mg/dL | [facility] | | | PLASMA | | | DEPARTMENT | | | (LAB) | | | OF | | | | | | PATHOLOGY | | + +---------+ + + + | BUN, PLASMA | 17 | 6 - 20 mg/dL | [facility] | | | (LAB) | | | DEPARTMENT | | | | | | OF | | | | | | PATHOLOGY | | + +---------+ + + + | CREATININE | 1.7 (H) | 0.7 - 1.3 mg/dL | [facility] | | | PLASMA | | | DEPARTMENT | | | (LAB) | | | OF | | | | | | PATHOLOGY | | + +---------+ + + + | SODIUM, | 136 | 136 - 145 | [facility] | | | PLASMA | | mmol/L | DEPARTMENT | | | (LAB) | | | OF | | | | | | PATHOLOGY | | + +---------+ + + + | POTASSIUM, | 4.3 | 3.5 - 5.1 | [facility] | | | PLASMA | | mmol/L | DEPARTMENT | | | (LAB) | | | OF | | | | | | PATHOLOGY | | + +---------+ + + + | CHLORIDE, | 98 | 98 - 107 mmol/L | [facility] | | | PLASMA | | | DEPARTMENT | | | (LAB) | | | OF | | | | | | PATHOLOGY | | + +---------+ + + + | TOTAL CO2, | 27 | 23 - 29 mmol/L | [facility] | | | PLASMA | | | DEPARTMENT | | | (LAB) | | | OF | | | | | | PATHOLOGY | | + +---------+ + + + | CALCIUM, | 9.1 | 8.5 - 10.5 | [facility] | | | PLASMA | | mg/dL | DEPARTMENT | | | (LAB) | | | OF | | | | | | PATHOLOGY | | + +---------+ + + + + + | Specimen | + + | | + + + + + | Narrative | Performed At | + + + | Ordered by TATI SAAB | [facility] | | | DEPARTMENT OF | | | PATHOLOGY | + + + + + + + + | Performing | Address | City/State/Zipcode | Phone Number | | Organization | | | | + + + + + | [facility] DEPARTMENT OF | [address] | [place] [address] | | | PATHOLOGY | [address] | | | + + + + + | [facility] | [address] | [place] [address] | | | PATHOLOGY | [address] | | | + + + + + CHEST 2 VIEW (07/03/2002 1:30 AM PDT) + + + + + + | Component | Value | Ref Range | Performed | Pathologist | | | | | At | Signature | + + + + + + | CHEST, 2 | Radiologist 1: KIESHA | | | | | VIEWS [place] | KALLIE Dawkins-Radiologist 2: | | | | | STEREO | KALLIE POP V.CHEST - | | | | | | PA AND LATERAL VIEWS: | | | | | | 07/03/2002 Dictated: | | | | | | 07/03/2002 COMPARISON: | | | | | | None. FINDINGS: A | | | | | | right-sided PICC line | | | | | | has been placed and the | | | | | | tip extendsto the | | | | | | cavoatrial junction. The | | | | | | cardiomediastinal | | | | | | silhouette isnormal. | | | | | | Minimal areas of linear | | | | | | atelectasis or scarring | | | | | | are present inthe right | | | | | | mid lung and left lower | | | | | | lung. There is no | | | | | | consolidation oredema. | | | | | | No pleural effusions are | | | | | | evident. Osseous | | | | | | structures and | | | | | | softtissues are | | | | | | unremarkable. | | | | | | IMPRESSION: 1. Bilateral | | | | | | linear opacities | | | | | | consistent with | | | | | | atelectasis or scarring. | | | | | | 2. Right-sided PICC | | | | | | line extends to the | | | | | | cavoatrial junction. | | | | | | END OF IMPRESSION: | | | | + + + + + + + + | Specimen | + + | | + + + + + | Narrative | Performed At | + + + | Ordered by TATI SAAB M.D. | | + + + + +---------+ + + | Performing | Address | City/State/Zipcode | Phone Number | | Organization | | | | + +---------+ + + | [facility] DEPARTMENT [facility] | | | | | RADIOLOGY | | | | + +---------+ + + CULT, BLOOD ULISSES & JOSLYN (07/03/2002 12:01 AM PDT) + + + + + + | Component | Value | Ref Range | Performed | Pathologist | | | | | At | Signature | + + + + + + | SOURCE BODY | Blood, Left Hand | | | | | SITE | | | | | + + + + + + | CULTURE | Blood Culture | | | | | RESULT | | | | | | | Source.................. | | | | | | : Blood, Left Hand | | | | | | Preliminary | | | | | | Report......: Blood | | | | | | Culture Received. No | | | | | | Growth to Date. | | | | | | Culture | | | | | | Report............: | | | | | | Final Report: No | | | | | | Bacteria or Yeast | | | | | | | | | | | | | | | | | | isolated at 5 days. | | | | + + + + + + + + | Specimen | + + | | + + + + + | Narrative | Performed At | + + + | [facility] | | + + + + + + + + | Performing | Address | City/State/Zipcode | Phone Number | | Organization | | | | + + + + + | [facility] | [address] | [place] [address] | | | LAB-MICRO | | | | + + + + + YULIANA RASMUSSEN (07/02/2002 11:30 PM PDT) + + + + + + | Component | Value | Ref Range | Performed | Pathologist | | | | | At | Signature | + + + + + + | SOURCE BODY | Left Antecubital | | | | | SITE | | | | | + + + + + + | CULTURE | Blood Culture | | | | | RESULT | | | | | | | Source.................. | | | | | | : Left Antecubital | | | | | | Preliminary | | | | | | Report......: Blood | | | | | | Culture Received. No | | | | | | Growth to Date. | | | | | | Culture | | | | | | Report............: | | | | | | Final Report: No | | | | | | Bacteria or Yeast | | | | | | | | | | | | | | | | | | isolated at 5 days. | | | | + + + + + + + + | Specimen | + + | | + + + + + | Narrative | Performed At | + + + | Ordered by TATI SAAB | | + + + + + + + + | Performing | Address | City/State/Zipcode | Phone Number | | Organization | | | | + + + + + | [facility] | [address] | [place] [address] | | | LAB-MICRO | | | | + + + + + CBC ONLY WITH PLATELET (07/02/2002 11:30 PM PDT) + + + + + + | Component | Value | Ref Range | Performed | Pathologist | | | | | At | Signature | + + + + + + | WHITE CELL | 20.1 (H) | 4.4 - 11.0 K/cu | [facility] | | | COUNT | | mm | DEPARTMENT | | | | | | OF | | | | | | PATHOLOGY | | + + + + + + | RED CELL | 3.21 (L) | 4.20 - 5.90 | [facility] | | | COUNT | | M/cu mm | DEPARTMENT | | | | | | OF | | | | | | PATHOLOGY | | + + + + + + | HEMOGLOBIN | 9.1 (L) | 13.0 - 17.5 | [facility] | | | | | g/dL | DEPARTMENT | | | | | | OF | | | | | | PATHOLOGY | | + + + + + + | HEMATOCRIT | 26.7 (L) | 38.0 - 50.4 % | [facility] | | | | | | DEPARTMENT | | | | | | OF | | | | | | PATHOLOGY | | + + + + + + | MCV | 83.2 | 80.0 - 96.0 fL | [facility] | | | | | | DEPARTMENT | | | | | | OF | | | | | | PATHOLOGY | | + + + + + + | MCH | 28.3 (L) | 28.5 - 32.3 pg | [facility] | | | | | | DEPARTMENT | | | | | | OF | | | | | | PATHOLOGY | | + + + + + + | MCHC | 34.0 | 33.4 - 35.5 | [facility] | | | | | g/dL | DEPARTMENT | | | | | | OF | | | | | | PATHOLOGY | | + + + + + + | RDW | 14.8 | 11.5 - 15.0 % | [facility] | | | | | | DEPARTMENT | | | | | | OF | | | | | | PATHOLOGY | | + + + + + + | PLATELET | 676 | K/cu mm | [facility] | | | COUNT | | | DEPARTMENT | | | | | | OF | | | | | | PATHOLOGY | | + + + + + + | MPV | 7.2 (L) | 7.4 - 10.4 fL | [facility] | | | | | | DEPARTMENT | | | | | | OF | | | | | | PATHOLOGY | | + + + + + + + + | Specimen | + + | | + + + + + | Narrative | Performed At | + + + | Ordered by TAIT SAAB | [facility] | | | DEPARTMENT OF | | | PATHOLOGY | + + + + + + + + | Performing | Address | City/State/Zipcode | Phone Number | | Organization | | | | + + + + + | [facility] | [address] | [place] [address] | | | PATHOLOGY | [address] | | | + + + + + | [facility] | [address] | [place] [address] | | | PATHOLOGY | [address] | | | + + + + + D-DIMER, (PE OR DIC) (07/02/2002 11:30 PM PDT) + + + + + + | Component | Value | Ref Range | Performed | Pathologist | | | | | At | Signature | + + + + + + | D-DIMER (PE | 2.08 (H)Comment: | <0.50 ug/mLFEU | [facility] | | | OR DIC) | D-Dimer | | DEPARTMENT | | | | Interpretation: | | OF | | | | <0.50 PE very | | PATHOLOGY | | | | unlikely | | | | | | 0.50-2.0 Seen in ill | | | | | | patients and not | | | | | | diagnostic ofthrombosis | | | | | | >2.0 | | | | | | Suggestive, but not | | | | | | diagnostic of DIC | | | | + + + + + + + + | Specimen | + + | | + + + + + | Narrative | Performed At | + + + | Ordered by TATI KATIANA New method and Reference Ranges | [facility] | | effective 05/21/02 for : APTT, Thrombin Time, Fibrinogen, and | DEPARTMENT OF | | D-Dimer. | PATHOLOGY | + + + + + + + + | Performing | Address | City/State/Zipcode | Phone Number | | Organization | | | | + + + + + | [facility] | [address] | [place] [address] | | | PATHOLOGY | [address] | | | + + + + + | [facility] | [address] | [place] [address] | | | PATHOLOGY | [address] | | | + + + + + URINE, MICROSCOPIC EXAM (07/02/2002 11:30 PM PDT) + +-------+ + + + | Component | Value | Ref Range | Performed | Pathologist | | | | | At | Signature | + +-------+ + + + | SQUAMOUS | None | /hpf | [facility] | | | EPITHELIAL | | | DEPARTMENT | | | | | | OF | | | | | | PATHOLOGY | | + +-------+ + + + | NON-SQUAMOU | None | /hpf | [facility] | | | S EPITH | | | DEPARTMENT | | | | | | OF | | | | | | PATHOLOGY | | + +-------+ + + + | RED CELLS | None | 0 - 3 /hpf | [facility] | | | | | | DEPARTMENT | | | | | | OF | | | | | | PATHOLOGY | | + +-------+ + + + | WHITE CELLS | None | 0 - 5 /hpf | [facility] | | | | | | DEPARTMENT | | | | | | OF | | | | | | PATHOLOGY | | + +-------+ + + + | BACTERIA | None | /hpf | [facility] | | | | | | DEPARTMENT | | | | | | OF | | | | | | PATHOLOGY | | + +-------+ + + + | MUCOUS | None | /lpf | [facility] | | | | | | DEPARTMENT | | | | | | OF | | | | | | PATHOLOGY | | + +-------+ + + + | HYALINE | None | 0 - 1 /lpf | [facility] | | | CASTS | | | DEPARTMENT | | | | | | OF | | | | | | PATHOLOGY | | + +-------+ + + + | GRANULAR | None | /lpf | [facility] | | | CASTS | | | DEPARTMENT | | | | | | OF | | | | | | PATHOLOGY | | + +-------+ + + + | CELLULAR | None | /lpf | [facility] | | | CASTS | | | DEPARTMENT | | | | | | OF | | | | | | PATHOLOGY | | + +-------+ + + + | AMORPHOUS | None | /hpf | [facility] | | | URATES | | | DEPARTMENT | | | | | | OF | | | | | | PATHOLOGY | | + +-------+ + + + | AMORPHOUS | None | /hpf | [facility] | | | PHOSPHATES | | | DEPARTMENT | | | | | | OF | | | | | | PATHOLOGY | | + +-------+ + + + | CALCIUM | None | /hpf | [facility] | | | OXALATE | | | DEPARTMENT | | | PHYLICIA | | | OF | | | | | | PATHOLOGY | | + +-------+ + + + | URIC ACID | None | /hpf | [facility] | | | CRYSTALS | | | DEPARTMENT | | | | | | OF | | | | | | PATHOLOGY | | + +-------+ + + + | TRIPLE P04 | None | /hpf | [facility] | | | CRYSTALS | | | DEPARTMENT | | | | | | OF | | | | | | PATHOLOGY | | + +-------+ + + + | YEAST (LAB) | None | /hpf | [facility] | | | | | | DEPARTMENT | | | | | | OF | | | | | | PATHOLOGY | | + +-------+ + + + | TRICHOMONAS | None | /hpf | [facility] | | | | | | DEPARTMENT | | | | | | OF | | | | | | PATHOLOGY | | + +-------+ + + + + + | Specimen | + + | | + + + + + | Narrative | Performed At | + + + | Ordered by TATI SAAB | [facility] | | | DEPARTMENT OF | | | PATHOLOGY | + + + + + + + + | Performing | Address | City/State/Zipcode | Phone Number | | Organization | | | | + + + + + | [facility] | [address] | [place] [address] | | | PATHOLOGY | [address] | | | + + + + + | [facility] | [address] [place] [address] | [place] [address] | | | PATHOLOGY | [address] | | | + + + + + BASIC METABOLIC SET (07/02/2002 11:30 PM PDT) + +---------+ + + + | Component | Value | Ref Range | Performed | Pathologist | | | | | At | Signature | + +---------+ + + + | GLUCOSE, | 122 (H) | 65 - 110 mg/dL | [facility] | | | PLASMA | | | DEPARTMENT | | | (LAB) | | | OF | | | | | | PATHOLOGY | | + +---------+ + + + | BUN, PLASMA | 17 | 6 - 20 mg/dL | [facility] | | | (LAB) | | | DEPARTMENT | | | | | | OF | | | | | | PATHOLOGY | | + +---------+ + + + | CREATININE | 1.6 (H) | 0.7 - 1.3 mg/dL | [facility] | | | PLASMA | | | DEPARTMENT | | | (LAB) | | | OF | | | | | | PATHOLOGY | | + +---------+ + + + | SODIUM, | 134 (L) | 136 - 145 | [facility] | | | PLASMA | | mmol/L | DEPARTMENT | | | (LAB) | | | OF | | | | | | PATHOLOGY | | + +---------+ + + + | POTASSIUM, | 4.1 | 3.5 - 5.1 | [facility] | | | PLASMA | | mmol/L | DEPARTMENT | | | (LAB) | | | OF | | | | | | PATHOLOGY | | + +---------+ + + + | CHLORIDE, | 95 (L) | 98 - 107 mmol/L | [facility] | | | PLASMA | | | DEPARTMENT | | | (LAB) | | | OF | | | | | | PATHOLOGY | | + +---------+ + + + | TOTAL CO2, | 24 | 23 - 29 mmol/L | [facility] | | | PLASMA | | | DEPARTMENT | | | (LAB) | | | OF | | | | | | PATHOLOGY | | + +---------+ + + + | CALCIUM, | 9.1 | 8.5 - 10.5 | [facility] | | | PLASMA | | mg/dL | DEPARTMENT | | | (LAB) | | | OF | | | | | | PATHOLOGY | | + +---------+ + + + + + | Specimen | + + | | + + + + + | Narrative | Performed At | + + + | Ordered by TATI SAAB | [facility] | | | DEPARTMENT OF | | | PATHOLOGY | + + + + + + + + | Performing | Address | City/State/Zipcode | Phone Number | | Organization | | | | + + + + + | [facility] DE[facility]MENT [facility] | [address] | [place] [address] | | | PATHOLOGY | [address] | | | + + + + + | [facility] DEPARTMENT | [address] | [place] [address] | | | PATHOLOGY | [address] | | | + + + + + MAGNESIUM, PLASMA (07/02/2002 11:30 PM PDT) + +-------+ + + + | Component | Value | Ref Range | Performed | Pathologist | | | | | At | Signature | + +-------+ + + + | MAGNESIUM,P | 2.5 | 1.8 - 2.5 mg/dL | [facility] | | | LASMA | | | DEPARTMENT | | | | | | OF | | | | | | PATHOLOGY | | + +-------+ + + + + + | Specimen | + + | | + + + + + | Narrative | Performed At | + + + | Ordered by TATI SAAB | [facility] | | | DEPARTMENT OF | | | PATHOLOGY | + + + + + + + + | Performing | Address | City/State/Zipcode | Phone Number | | Organization | | | | + + + + + | [facility]MENT [facility] | [address] | [place] [address] | | | PATHOLOGY | [address] | | | + + + + + | [facility] DEPARTMENT [facility] | [address] | [place] [address] | | | PATHOLOGY | [address] | | | + + + + + PHOSPHORUS, PLASMA (07/02/2002 11:30 PM PDT) + +-------+ + + + | Component | Value | Ref Range | Performed | Pathologist | | | | | At | Signature | + +-------+ + + + | PHOSPHORUS, | 4.6 | 2.4 - 4.7 mg/dL | [facility] | | | PLASMA | | | DEPARTMENT | | | (LAB) | | | OF | | | | | | PATHOLOGY | | + +-------+ + + + + + | Specimen | + + | | + + + + + | Narrative | Performed At | + + + | Ordered by TATI SAAB | [facility] | | | DEPARTMENT OF | | | PATHOLOGY | + + + + + + + + | Performing | Address | City/State/Zipcode | Phone Number | | Organization | | | | + + + + + | [facility]MENT [facility] | [facility] | [place] [address] | | | PATHOLOGY | [address] | | | + + + + + | [facility] | [address] | [place] [address] | | | PATHOLOGY | [address] | | | + + + + + documented in this encounter Visit Diagnoses Not on filedocumented in this encounter"
--- OUTSIDE RECORDS SUMMARY | ~2019-02-03 | XMS | Encounter Summary ---
Demographics + + + | Address | [address] | | | [place] [address] | + + + | Home Phone | | + + + | Preferred Language | Unknown | + + + | Marital Status | | + + + | Mu-Ism Affiliation | 1041 | + + + | Race | Unknown | + + + | Ethnic Group | Unknown | + + + Author + + + | Author | [facility] | | | and [place] | + + + | Organization | [facility] | | | and [place] | + + + | Address | Unknown | + + + | Phone | Unavailable | + + + Support + + + + + | Name | Relationship | Address | Phone | + + + + + | Ai De La Paz | ECON | [address] | | | | | [facility] [place] | | | | | [address] | | + + + + + Care Team Providers + +------+ + | Care Firer Diesel Locomotive Name | Role | Phone | + +------+ + PCP | Unavailable | + +------+ + Encounter Details +--------+ + + + + | Date | Type | Department | Care Team | Description | +--------+ + + + + | 05/27/ | Hospital | [facility] | Khai Ackerman | | | 2002 | Encounter | MED CTR XRAY [address] | | | | | [address] | | | | | | [place] [address] | | | | | | [phone] | | | +--------+ + + + [...] 2019 | Visit | | [address] [facility] | | | | | | [address] [place], [place] | | | | | | [address] | | | | | | | | +--------+---------+ + + + documented as of this encounter Visit Diagnoses Not on filedocumented in this encounter"
--- OUTSIDE RECORDS SUMMARY | ~2019-02-03 | XMS | Encounter Summary ---
Demographics + + + | Address | [address] | | | [place] [address] | + + + | Home Phone [...] | [address] | | | | | [facility] | | | | | [address] | | + + + + + Care Team Providers + +------+ + | Care Cost Report Clerk Name | Role | Phone | + +------+ + PCP | Unavailable | + +------+ + Encounter Details +--------+ + + + + | Date | Type | Department | Care Team | Description | +--------+ + + + + | 09/20/ | [facility] | [facility] | Khai Ackerman | | | 2001 | Encounter | MED CTR XRAY [address] | [address] | | | | | [address] | | | | | | [place] [address] | | | | | | [phone] | | | +--------+ + + + [...] [place] | | | | | | [address] | | | | | | | | +--------+---------+ + + + documented as of this encounter Visit Diagnoses Not on filedocumented in this encounter"
--- OUTSIDE RECORDS SUMMARY | ~2019-02-03 | XMS | Encounter Summary ---
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 [address] | 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 thinners | | | | [address] | [place], [place] | (Primary Dx) | | | | [address] | [address] | | | | | [place], [place] | | | | | | [address] | | | | | | [phone] | | | +--------+ + + + [...] | 2019 | Visit | | [address] [facility] [address] | | | | | | [facility] [address] | | | | | | [place] [address] | | | | | | [phone] | | | | | | | | +--------+---------+ + + + documented as of this encounter Visit Diagnoses + + | Diagnosis | + + | 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
--- OUTSIDE RECORDS SUMMARY | ~2019-02-03 | XMS | Encounter Summary ---
Demographics + + + | Address | [address] | | | [place] [address] | + + + | Home Phone | | + + + | Preferred Language | Unknown | + + + | Marital Status | | + + + | Zoroastrian Affiliation | CAT | + + + [...] Team Providers + +------+ + | Care Dairy Chemist Name | Role | Phone | + +------+ + | Bartolome Frederick DO | PCP | | + +------+ + Reason for Visit + + + | Reason | Comments | + + + | Refill Request | | + + + Encounter Details +--------+--------+ + + + | Date | Type | Department | Care Team | Description | +--------+--------+ + + + | 12/13/ | Refill | [facility] | Yam, Levi, MD | Refill Request | | 2019 | | [facility] | [address] | | | | | [address] | [address] | | | | | [address] | [place] [address] | | | | | [place], [place] | [phone] | | | | | [address] | | | | | | [phone] | | | +--------+--------+ + + + Social History + +--------+ [...] 2020 | Visit | | [address] | | | | | | [address] | | | | | | [place] [address] | | | | | | [phone] | | | | | | | | +--------+---------+ + + + documented as of this encounter Visit Diagnoses + + | Diagnosis | + + | S/P lumbar fusion Arthrodesis status | + + documented in this encounter"
--- OUTSIDE RECORDS SUMMARY | ~2019-02-03 | XMS | Encounter Summary ---
Demographics + + + | Address | [address] | | | [place] [address] | + + + | Home Phone [...] [place] | | | | | [address] | | + + + + + Care Team Providers + +------+ + | Care Email Designer Name | Role | Phone | [...] | | | [place], | [address] | | | | | Endocarditis | [place] | [place], | | | | | , valve | [address] | [place] | | | | | Mitral valve | [address] | [address] | | | | | replaced | [place], | Phone: | | | | | Procedures | [place] | [phone] | | | | | ECHO | [address] | Fax: | | | | | Complete [place] | Phone: | [phone] | | | | | ECHO HEART | [phone] | | | | | | XTHORACIC,[place] | Fax: | | | | | | [address] | [phone] | | | | | | [place]OPPL[place] | | | | | | [...] Orders Only | [facility] [place] | [place], | ENDOCARDITIS,MITRAL | | 2013 | | CARDIOLOGY [address] | [place], TRANSPORTATION LEAD [address] | VALVE W/ENLARGED | | | | [place], | [place], | [place] | | | | [place] [address] | [place] [address] | (Primary Dx); | | | | [phone] | [phone] | Mitral valve | | | | [...] 2020 | Visit | | [address] [facility] | | | | | | [address] [place], [place] | | | | | | [address] | | | | | | | [...]
--- OUTSIDE RECORDS SUMMARY | ~2019-02-03 | XMS | Encounter Summary ---
Demographics + + + | Address | [address] | | | [place] [address] | + + + | Home Phone | | + + + | Preferred Language | Unknown | + + + | Marital Status | | + + + | Religion Affiliation | [id number] | + + + [...] [place] | | | | | [address] | | + + + + + Care Team Providers + +------+ + | Care Trombone Slide Assembler Name | Role | Phone | + +------+ + | Khai Ackerman DO | PCP | Unavailable | + +------+ + Reason for Visit + + + | Reason | Comments | + + + | Annual Exam | annual office visit with EKG and ROS | + + + | Palpitations | | + + + | Hyperlipidemia | | + + + | Hypertension | | + + + Encounter Details +--------+---------+ + + + | Date | Type | Department | Care Team | Description | +--------+---------+ + + + | 10/10/ | Office | [facility] | Roxanne Patino, | Visit for annual | | 2012 | Visit | CARDIOLOGY [address] [facility] | health examination | | | | [place], | [place], | (Primary Dx); | | | | [place] [address] | [place] [address] | Palpitations; HTN | | | | [phone] | [phone] | (hypertension); H/O | | | | | | mitral valve | | | | | | replacement | +--------+---------+ + + + Social History [...] + + + | Blood Pressure | 120/64 | 10/10/2012 2:09 PM | Left arm | | | | PDT | | + + + + + | Pulse | 58 | 10/10/2012 2:09 PM | Irregular | | | | PDT | | + + + + + | Temperature | - | - | | + + + + + | Respiratory Rate | 16 | 10/10/2012 2:09 PM | | | | | PDT | | + + + + + | Oxygen Saturation | - | - | | + + + + + | Inhaled Oxygen | - | - | | | Concentration | | | | + + + + + | Weight | 87.5 kg (193 lb) | 10/10/2012 2:09 PM | | | | | PDT | | + + + + + | Height | 177.8 cm (5' 10") | 10/10/2012 2:09 PM | | | | | PDT | | + + + + + | Body Mass Index | 27.69 | 10/10/2012 2:09 PM | | | | | PDT | | + + + + + documented in this encounter Progress Notes Roxanne Patino MD - 10/10/2012 2:27 PM PDTFormatting of this note might be different f rom the original. Subjective: Cardiology Office Visit Date of Service: 10/10/2012 Patient ID: Lupillo De La Paz is a 62 y.o. male. PCP: Khai OBRIEN Lupillo "Rajan De La Paz is a 62-year-old male with a history of hypertension, palpitations asso ciated with premature ventricular contractions, history of enterococcus mitral valve endocar ditis, status post [facility] mitral valve replacement in July 2002, obstructive sleep apnea a nd obesity. He is being seen today for treatment of his mitral valve replacement. He was last seen on 05/15/11at which time patient was doing well from cardiac standpoint the plan to see him in a year for the followup. Since that time,patient was doing well until Ap ril 2012 when he had a left knee arthroscopy done in [place], [place]. He has had a lef t knee pain and not be able to walk. He has lost his appetite. He also started to have artem e trouble breathing when he walks to the mailbox which he attributes to "being out of shape" . There is no chest pain or chest discomfort both at rest and on exertion. Patient can sle ep on one pillow at night without difficulty breathing. There is no palpitation dizzines s or lightheadedness. There is no ankle or leg swelling. Patient Active Problem List Diagnosis OBESITY RESTLESS LEGS SYNDROME INSOMNIA MIGRAINE HEADACHE SLEEP APNEA HYPERLIPIDEMIA HYPERTENSION ENDOCARDITIS,MITRAL VALVE W/ENLARGED ANTERIOR LEAFLET VEG DYSPNEA PALPITATIONS Past Surgical History Procedure Date Tonsillectomy Appendectomy Left and right knne surgery Mitral valve replacement/repair 2002 Bilateral cataracts 1997 & 1999 Left knee arthroscopic 09/09/2012 History reviewed. No pertinent family history. 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 baclofen (LIORESAL) 10 mg tablet Active Two tablets by mouth every 8 hours as needed gjzwzfbnrm-ijiyfodjnddyb-fbxlkeiz (ESGIC PLUS) per tablet Active One tablet by mouth ev janusz 8 hours as needed HYDROmorphone (DILAUDID) 4 MG tablet Active Take 4 mg by mouth every 4 hours as needed. oxyCODONE-acetaminophen (PERCOCET) 5-325 mg per tablet Active Take 1 tablet by mouth ev janusz 4 hours as needed. rOPINIRole (REQUIP) 4 mg tablet Active Take 4 mg by mouth nightly. simvastatin (ZOCOR) 40 mg tablet Active Take 20 mg by mouth nightly. temazepam (RESTORIL) 30 MG capsule Active Take 30 mg by mouth nightly as needed. triamterene-hydrochlorothiazide (MAXZIDE-25) 37.5-25 mg per tablet Active Take 37.5-25 mg by mouth Daily. verapamil (VERELAN) 240 mg SR capsule Active Take 240 mg by mouth nightly. warfarin (COUMADIN) 1 mg tablet Active 1 tablet by mouth daily with 5 mg for a total of 6 mg daily warfarin (COUMADIN) 5 mg tablet Active One tablet by mouth once daily with 1-mg tablet for a total of 6 mg, as directed by Khai Ackerman, DO Allergies Allergen Reactions Codeine Sulfate Penicillins Review of Systems Constitutional: Positive for activity change (decreased just had Left knee surgery) and denise etite change. Negative for fever, chills, diaphoresis, fatigue and unexpected weight change. HENT: Negative for hearing loss, nosebleeds, congestion, dental problem and tinnitus. Eyes: Negative for visual disturbance. Respiratory: Negative for apnea, cough, choking, chest tightness, shortness of breath and w heezing. Cardiovascular: Positive for leg swelling (at the surgery site on the left knee). Negative for chest pain and palpitations. Gastrointestinal: Negative for nausea, vomiting, abdominal pain, diarrhea, constipation, bl ood in stool, abdominal distention, anal bleeding and rectal pain. Genitourinary: Negative for urgency, frequency, hematuria, decreased urine volume and diffi culty urinating. Musculoskeletal: Positive for back pain, joint swelling, arthralgias and gait problem. Nega tive for myalgias. Skin: Negative for color change and rash. Neurological: Positive for headaches. Negative for dizziness, tremors, seizures, syncope, s peech difficulty, weakness, light-headedness and numbness. Hematological: Negative for adenopathy. Bruises/bleeds easily. Psychiatric/Behavioral: Positive for confusion. Negative for sleep disturbance and decrease d concentration. The patient is not nervous/anxious. Objective: Physical Exam Constitutional: He is oriented to person, place, and time. He appears well-developed and we ll-nourished. Male gender without acute distress. Neck: No hepatojugular reflux and no JVD present. Carotid bruit is not present. Cardiovascular: Normal rate, regular rhythm, S1 normal, S2 normal, intact distal pulses and normal pulses. PMI is not displaced. Exam reveals no gallop, no S3, no S4, no distant hea rt sounds and no friction rub. Murmur heard. Systolic (grade 1/6holosystolic murmur along left sternal border.) murmur is present Normal cardiac heart sound. Pulmonary/Chest: [place] normal and breath sounds normal. No accessory muscle usage. No resp iratory distress. He has no wheezes. He has no rhonchi. He has no rales. Abdominal: Soft. Normal aorta and bowel sounds are normal. There is no tenderness. Neurological: He is alert and oriented to person, place, and time. Skin: No cyanosis. Nails show no clubbing. Psychiatric: He has a normal mood and affect. His mood appears not anxious. He does not exh ibit a depressed mood. BP 120/64 | Pulse 58 | Resp 16 | Ht 1.778 m (5' 10") | Wt 87.544 kg (193 lb) | BMI 27.69 kg /m2 ECG: Normal sinus rhythm, septal MA age indeterminate. No results found for this basename: WBC, HBG, HCT, MCV, MCH, MCHC, PLTCOUNT, RBC Lab Results Component Value Date GLU 101 07/03/2012 NA 138 07/03/2012 K 3.5 07/03/2012 CL 104 07/03/2012 CO2 28 07/03/2012 CALCIUM 8.9 07/03/2012 ALKPHOS 90 07/03/2012 AST 17 07/03/2012 ALT 18 07/03/2012 BILITOT 0.4 07/03/2012 Lab Results Component Value Date TRIG 102 07/03/2012 LDLCALC 129 07/03/2012 HDL 37.1 07/03/2012 I personally reviewed records from another healthcare provider. Assessment: 1. 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 A. Status post mechanical mitral valve replacement at [facility] in [place], [place], on . B. 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 C. Echocardiogram from 04/10/11= mild left atrial dilatation, normal left ventricular size with LVEF of 55-60%. Grade 1 left ventricular diastolic dysfunction. Normally functioni ng bileaflet mechanical mitral replacement. A trace transvalvular MR. There is no evidence o f vegitation seen. Mild TR. D. Patient experiences symptoms of trouble breathing when he walked to the mailbox which he attributes to "being out of shape" from not be able to exercise secondary to the re cent left knee arthroscopy in May,. There is no signs and symptoms of overt congesti ve heart failure. Patient is in a class II of [place] [employer] functional class. T here is no fluid retention on physical exam. 2. Hypertension: A. Today his blood pressure is good. 3. Hyperlipidemia. A. Lipid profile of 07/03/12 showed total cholesterol 186, triglycerides 102, HDL 37 , LDL 129. 4. Palpitations associated with premature ventricular contractions. A. 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 B. A Holter monitor from 02/27/05 revealed predominant normal sinus rhythm with a ve ry rare PAC and frequent PVCs. C. He has not had any significant palpitations. 5. Obesity. A. He has lost 30 pounds of weight in the past year. Plan: 1.I recommend echocardiogram to assess his cardiac structure as a workup of his dyspnea on exertion. Patient prefers to wait at this time. He believes that he would be better when he gets back to his routine. 2. Followup in 6 months or sooner if his shirt of breath is getting worse. Portions of this report were transcribed using voice recognition software. Every effort wa s made to ensure accuracy; however, inadvertent computerized park manager errors may be pre sent. documented in this encounter Plan of Treatment +--------+---------+ + + + | Date | Type | Specialty | Care Team | Description | +--------+---------+ + + + | 02/19/ | Office | Nephrology | Ismael Young MD | | | 2019 | Visit | | [address] [facility] | | | | | | [address] [place], [place] | | | | | | [address] | | | | | | | | +--------+---------+ + + + + +------+--------+ + + | Name | Type | Priori | Associated Diagnoses | Order Schedule | | | | ty | | | + +------+--------+ + + | ECG 12 lead | ECG | Routin | Visit for annual | Ordered: 10/10/2012 | | | | e | health examination | | | | | | Palpitations HTN | | | | | | (hypertension) H/O | | | | | | mitral valve | | | | | | replacement | | + +------+--------+ + + documented as of this encounter Procedures + +--------+ + + + | Procedure Name | Priori | Date/Time | Associated Diagnosis | Comments | | | ty | | | | + +--------+ + + + | ECG - EXTERNAL SCAN | | 10/10/2012 | | Results for this | | | | 12:00 AM | | procedure are in the | | | | PDT | | results section. | + +--------+ + + + documented in this encounter Results ECG - EXTERNAL SCAN (10/10/2012 12:00 AM PDT) + + + | Narrative | Performed At | + + + | Ordered by an | | | unspecified provider. | | + + + + + | Transcriptions | + + | Desirae Juarez - 10/10/2012 12:00 AM PDT | + + documented in this encounter Visit Diagnoses + + | Diagnosis | + + | Visit for annual health examination - Primary Routine general medical examination at | | a health care facility | + + | Palpitations | + + | HTN (hypertension) Unspecified essential hypertension | + + | H/O mitral valve replacement Heart valve replaced by other means | + + documented in this encounter
--- OUTSIDE RECORDS SUMMARY | ~2019-02-03 | XMS | Encounter Summary ---
Demographics + + + | Address | [address] | | | [place] [address] | + + + | Home Phone | | + + + | Preferred Language | Unknown | + + + | Marital Status | | + + + | Hoahaoism Affiliation | CAT | + + + [...] Team Providers + +------+ + | Care Field Artillery Crewmember Name | Role | Phone | + +------+ + | Bartolome Frederick DO | PCP | | + +------+ + Encounter Details +--------+ + + + + | Date | Type | Department | Care Team | Description | +--------+ + + + + | 12/05/ | Hospital | Diagnostic Imaging | Jaison Barber, | | | 2019 | Encounter | at [facility] | PA-C [address] | | | | | Healthcare [address] | [place], [place] | | | | | [address] [place], | [address] | | | | | [place] [address] | | | | | | [phone] | | | +--------+ + + + [...] | | 0 | | | | [id number]-[id number] | daily. | | | | | [...] | | | | | | release (/EC) | | | | | | + [...] | | | | | | | welding machine tender | | | | | + + + +---------+ + + documented as of this encounter Plan of Treatment +--------+---------+ + + + | Date | Type | Specialty | Care Team | Description | +--------+---------+ + + + | 04/30/ | Office | Neurological Surgery | Michael Durbin MD | | | 2019 | Visit | | [address] [facility] [address] | | | | | | [address] | | | | | | [place] [address] | | | | | | [phone] | | | | | | | | +--------+---------+ + + + documented as of this encounter Procedures + +--------+ + + + | Procedure Name | Priori | Date/Time | Associated Diagnosis | Comments | | | ty | | | | + +--------+ + + + | X-RAY SPINE | Routin | 12/05/2018 | S/P lumbar fusion | Results for this | | LUMBOSACRAL 2 VIEWS | e | 10:20 AM | | procedure are in the | | | | PDT | | results section. | + +--------+ + + + documented in this encounter Results X-RAY SPINE LUMBOSACRAL 2 VIEWS (12/05/2018 10:20 AM PDT) + + | Specimen | + + | | + + + + + | Narrative | Performed At | + + + | EXAM DESCRIPTION: X-RAY SPINE LUMBOSACRAL 2 VIEWS CLINICAL | [facility] | | HISTORY: 68 y/o M patient. Surgery on 11/06/2018. COMPARISON: | RADIOLOGY VOICE | | 11/06/2018, 09/13/2018. TECHNIQUE: AP and lateral views of the | RECOGNITION | | upright lumbar spine. FINDINGS: Posterior spinal stabilization | | | hardware is again seen at the L2, L3 and L4 levels, with bilateral | | | transpedicular screws at each of these levels. Interbody spacers are | | | again seen at the L2-3 and L3-4 levels. Spinal hardware appears | | | intact. Approximately 7 mm of retrolisthesis at the L2-3 level | | | appears increased since supine imaging acquired 11/06/2018, which is | | | approximately 4 mm at that time. Approximately 3 mm of retrolisthesis | | | at the L3-4 level demonstrates no change since 11/06/2018, also | | | measuring approximately 3 mm at that time. Incompletely visualized | | | sternal closure wires are present, of which the lowest most wire | | | demonstrates a fracture in 2 places, appearing unchanged since | | | 09/13/2018. IMPRESSION: Postsurgical sequela of posterior fusion | | | involving the L2, L3 and L4 level. Spinal hardware appears intact. | | | Since 11/06/2018 the degree of retrolisthesis at L2-3 appears | | | slightly increased. Mild L3-4 retrolisthesis appear stable. | | | Signed By: Hollis Arriaga DO On 12/05/2018 11:37:25 | | + + + + ---------+ | Procedure Note | + ---------+ | Service Account, Radiant Res In Interface - 12/05/2018 11:40 AM PDT EXAM | | DESCRIPTION:X-RAY SPINE LUMBOSACRAL 2 VIEWS CLINICAL HISTORY:68 y/o M patient. Surgery | | on 11/06/2018. COMPARISON:11/06/2018, 09/13/2018. TECHNIQUE:AP and lateral views of the | | upright lumbar spine. FINDINGS:Posterior spinal stabilization hardware is again seen at | | the L2, L3 and L4 levels, with bilateraltranspedicular screws at each of these levels. | | Interbody spacers are again seen at the L2-3 andL3-4 levels. Spinal hardware appears | | intact. Approximately 7 mm of retrolisthesis at the L2-3 level appears increased since | | supine imagingacquired 11/06/2018, which is approximately 4 mm at that | | time.Approximately 3 mm of retrolisthesis at the L3-4 level demonstrates no change since | | 11/06/2018,also measuring approximately 3 mm at that time. Incompletely visualized | | sternal closure wires are present, of which the lowest most wiredemonstrates a fracture | | in 2 places, appearing unchanged since 09/13/2018. IMPRESSION:Postsurgical sequela of | | posterior fusion involving the L2, L3 and L4 level. Spinal hardware appearsintact. Since | | 11/06/2018 the degree of retrolisthesis at L2-3 appears slightly increased. Mild | | L3-4retrolisthesis appear stable. Signed By: Hollis Arriaga DO On 12/05/2018 11:37:25 | |L3-4 levels. Spinal hardware appears intact. | | | |Approximately 7 mm of retrolisthesis at the L2-3 level appears increased since supine imagi ng | |acquired 11/06/2018, which is approximately 4 mm at that time. | |Approximately 3 mm of retrolisthesis at the L3-4 level demonstrates no change since 019, | |also measuring approximately 3 mm at that time. | | | |Incompletely visualized sternal closure wires are present, of which the lowest most wire | |demonstrates a fracture in 2 places, appearing unchanged since 09/13/2018. | | | |IMPRESSION: | |Postsurgical sequela of posterior fusion involving the L2, L3 and L4 level. Spinal hardware appears | |intact. | | | |Since 11/06/2018 the degree of retrolisthesis at L2-3 appears slightly increased. Mild L3-4 | |retrolisthesis appear stable. | | | | | |Signed By: Hollis Arriaga DO On 12/05/2018 11:37:25 | + ---------+ + + + + + | Performing | Address | City/State/Zipcode | Phone Number | | Organization | | | | + + + + + | [facility] | [address] | [place] [address] | [phone] | | VOICE RECOGNITION | | | | + + + + + documented in this encounter Visit Diagnoses + + | Diagnosis | + + | S/P lumbar fusion Arthrodesis status | + + documented in this encounter"
--- OUTSIDE RECORDS SUMMARY | ~2019-02-03 | XMS | Encounter Summary ---
Demographics + + + | Address | [address] | | | [place] [address] | + + + | Home Phone | | + + + | Preferred Language | Unknown | + + + | Marital Status | | + + + | Zoroastrian Affiliation | 1041 | + + + | Race | Unknown | + + + | Ethnic Group | Unknown | + + + Author + + + | Author | [facility] | | | and [place] | + + + | Organization | [facility] | | [...] [place] | | | | | [address] | | + + + + + Care Team Providers + +------+ + | Care Raw Stock Machine Loader Name | Role | Phone | + +------+ + | Bartolome Frederick DO | PCP | | + +------+ + Reason for Visit + + + | Reason | Comments | + + + | New Patient | back pain | + + + Evaluate & Treat (Routine) +--------+--------+ + + + + | Status | Reason | Specialty | Diagnoses / | Referred By | Referred To | | | | | Procedures | Contact | Contact | +--------+--------+ + + + + | Closed | | Physical | Diagnoses | Anthony, | Gatito, | | | | Medicine and | Low back | Teodoro Peña, | Reji Patel MD | | | | Rehabilitatio | pain DDD | [address] | [address] | | | | n | (degenerativ | [address] | [address] [place] | | | | | e disc | [place], | [place] | | | | | disease), | [place] | [address] Phone: | | | | | lumbar | [address] | [phone] | | | | | | Phone: | Fax: | | | | | | [phone] | [phone] | | | | | | Fax: | | | | | | | [phone] | | +--------+--------+ + + + + Encounter Details +--------+---------+ + + + | Date | Type | Department | Care Team | Description | +--------+---------+ + + + | 09/04/ | Office | [facility] [place] | Reji Mederos | Chronic bilateral | | 2018 | Visit | PHYSIATRY [address] | low back pain with | | | | [place], | [place], [place] | bilateral sciatica; | | | | [place] [address] | [address] | Spinal stenosis of | | | | [phone] | | lumbar region with | | | | | | radiculopathy [...] + + + | Blood Pressure | 135/76 | 09/04/2017 12:56 PM | | | | | PDT | | + + + + + | Pulse | 85 | 09/04/2017 12:56 PM | | | | | PDT [...] + + + + | Weight | 83.9 kg (185 lb) | 09/04/2017 12:56 PM | | | | | PDT | | + + + + + | Height | 180.3 cm (5' 11") | 09/04/2017 12:56 PM | | | | | PDT | | + + + + + | Body Mass Index | 25.8 | 09/04/2017 12:56 PM | | | | | PDT | | + + + + + documented in this encounter Progress Notes Reji Mederos MD - 09/04/2017 1:00 PM PDT Reji Mederos MD [address] [place] [address], [address] [place], [place] [address] FAX: PHYSICAL MEDICINE AND REHABILITATION H&P CHIEF COMPLAINT: Chief Complaint Patient presents with New Patient back pain HISTORY OF PRESENT ILLNESS: The patient is a 67 y.o. male being seen today at the request of Dr. Teodoro Cruz for the complaint of low back pain and bilateral leg pain that began in June 2008. The patient reports that the pain started without any inciting event although fe els as though it significantly worsened this year after a knee replacement in March 2017. The symptoms have been significantly improved recently with a change in medication. He re ports very little pain at present. He rates the pain as moderate to severe without medication but minimal with. The symptoms are daily. He describes the pain as aching, numbing, tight band and tingling. The patient describes leg symptoms that occur on both sides. The leg symptoms account for greater than or equal to 75% of his symptoms. The leg symptoms are persistent and the sympt oms travel from the lower back to the calves. The patient does report numbness in the right foot. He does not report weakness. The patient does not report any change in bowel or bladder function or saddle anesthesia re cently. His symptoms improve with gabapentin and methylprednisolone. His symptoms worsen with sitting, kneeling and twisting. He did not necessarily report any worsening or improvement with standing and walking. He has tried muscle relaxants, methylprednisolone and is also on gabapentin. The recent ch martir in medication with the addition of gabapentin and especially methylprednisolone has hel ped significantly. PAST MEDICAL HISTORY: Past Medical History: Diagnosis Date Back pain [...] with radiculopathy, lumbosacral region Palpitations Plantar wart Restless legs syndrome 03/30/2011 Restless legs syndrome (RLS) Shortness of breath Sleep apnea 03/30/2011 Spinal stenosis of lumbar region with radiculopathy 09/04/2017 Spinal stenosis, sacral and sacrococcygeal region Unspecified essential hypertension Unspecified sleep apnea PAST SURGICAL HISTORY: Past Surgical History: Procedure Laterality Date APPENDECTOMY CATARACT REMOVAL 1997 & 1999 Bilateral HERNIA REPAIR 11/2012 KNEE ARTHROSCOPY Left 09/09/2012 KNEE SURGERY Bilateral MITRAL VALVE REPLACEMENT 2003 TONSILLECTOMY TOTAL KNEE ARTHROPLASTY Left 03/2017 CURRENT MEDICATIONS: Current Outpatient Prescriptions Medication Sig Dispense Refill Ascorbic Acid (VITAMIN C) 500 MG CAPS Take 500 mg by mouth. aspirin 81 MG tablet Take 81 mg by mouth Daily. atorvaSTATin (LIPITOR) 20 mg tablet Take 40 mg by mouth nightly. baclofen (LIORESAL) 20 mg tablet Take 20 mg by mouth 3 times daily. CALCIUM/MAGNESIUM/ZINC FORMULA PO Take 1,000 mg by mouth. ferrous sulfate 324 (65 Fe) MG EC tablet Take by mouth. gabapentin (NEURONTIN) 600 MG tablet methylPREDNISolone (MEDROL) 2 MG tablet Take 2 mg by mouth 3 times daily as needed. rOPINIRole (REQUIP) 4 mg tablet Take 4 mg by mouth nightly. spironolactone (ALDACTONE) 25 mg tablet Take 25 mg by mouth Daily. tamsulosin (FLOMAX) 0.4 mg CAPS Take 0.4 mg by mouth Daily. temazepam (RESTORIL) 30 MG capsule Take 30 mg by mouth nightly. triamterene-hydrochlorothiazide (MAXZIDE-25) 37.5-25 mg per tablet Take 37.5-25 mg by m outh. Takes this medication Sunday, , Sunday verapamil (CALAN SR) 180 mg SR tablet Take 180 mg by mouth nightly. warfarin (COUMADIN) 5 mg tablet Take 6 mg by mouth Daily. No current facility-administered medications for this visit. ALLERGIES: Allergies Allergen Reactions Penicillins Anaphylaxis and Other (See Comments) Stopped breathing Codeine Sulfate Gramineae Pollens Other (See Comments) Reaction not specified in outside medical records Lisinopril Other (See Comments) Reaction not specified in outside medical records Pollen Extract Other (See Comments) Reaction not specified in outside medical records Codeine Nausea Only SOCIAL HISTORY: The patient reports that he has been smoking Cigars. He quit smokeless tobacco use about 15 years ago. His smokeless tobacco use included Snuff. He reports that he drinks alcohol. H e reports that he does not use drugs. FAMILY HISTORY: Family History Problem Relation Age of Onset Cancer Mother Hypertension Mother Other (see comment) Mother Joint replacement Diabetes Father Heart disease Father Hypertension Father Stroke Father No Known Problems Brother No Known Problems Brother No Known Problems Brother No Known Problems Sister No Known Problems Child No Known Problems Child ROS GENERALLY: No fever, no night sweats, no anemia, no fatigue, no recent profound weight ch anges. EYES: +eye problems, no use of corrective lenses, no eye injury, no double vision, no blin dness. EARS, NOSE, AND THROAT: No changes in taste or smell, no hearing difficulty, no ringing in the ears, no ear drainage, no dizziness, no voice changes, no difficulty swallowing, no sig nificant snoring, no sleep apnea, no sinus problems, no major dental work. NEUROLOGICALLY:The patient has no numbness/pain of arms, +numbness/pain of legs, no awake w ith numbness/pain, no weakness, +muscle aching, no coordination difficulty, no change in wal k, no head injury, no neck injury, no back injury, no pain in neck, +pain in back, no stroke , no fainting spells, no loss of consciousness, no tremor/shaking, no seizures, no headaches , no migraine, no memory loss, no speech difficulty, no confusion and no numbness of face. PSYCHIATRIC: No depression, no sleep disorders, no anxiety, no bipolar disorder, no psycho tic episodes. CARDIOVASCULAR: No heart attacks, no heart murmur, no heart fluttering, no chest pain, no ankle swelling. LUNG DISEASE: No shortness of breath, no cough, no tuberculosis, no bloody cough, no asth ma, no emphysema/COPD. GASTROINTESTINAL: No bowel disease, no nausea or vomiting, no rectal bleeding, no constipa tion, no stool incontinence, no liver disease, no gallbladder disease, no abdominal pain, no ulcers. KIDNEY DISEASE: No urinary frequency, no painful or difficult urination, no incontinence. ENDOCRINE: No diabetes, no thyroid disease, +osteopenia , no breast drainage. SKIN: No breast lumps, no skin changes, no rashes, no itches. HEMATOLOGIC/LYMPHATIC: No enlarged lymph nodes, no easy or unusual bleeding, no personal h istory of cancer. RHEUMATOLOGIC: +joint arthritis, no rheumatoid arthritis. PHYSICAL EXAMINATION: Blood pressure 135/76, pulse 85, height 1.803 m (5' 11"), weight 83.9 kg (185 lb). Body mas s index is 25.8 kg/m. GENERAL: The patient is well developed and well nourished. He does not appear uncomfortabl e when seated. HEENT: HEAD/FACE: EYES: Normocephalic and atraumatic. There are no areas of recent trauma. Normal sclerae without icterus. SKIN Limited skin exam shows no significant rashes or lesions. There are not scars in the back region. CHEST: The patient is in no acute respiratory distress with unlabored respirations. HEART: There is not lower extremity edema. ABDOMEN: The patient is not overweight. NEUROLOGIC: The patient is awake, alert, and oriented to time, place, person. He follows simple and complex commands. His speech is fluent. He comprehends speech well. He has no apparent deficits with short or terminal clerk memory. He has appropriate fund of knowledge Cranial nerves 2-12 appear grossly intact. Sensory exam does not show diminished sensation to light touch in the upper and lower extre mities. REFLEX: RIGHT LEFT PATELLAR 2+ 2+ ACHILLES 2+ 2+ PLANTAR Downgoing Downgoing MUSCULOSKELETAL There is no major palpable deformity of the spine. Straight leg raise and slump-sit are negative. Mina's maneuver and impingement testing were negative for any groin pain. There was no tenderness to palpation over the greater tr ochanters or sacral sulci. The patient localized the majority of the pain to the left lower lumbar region. Lumbar facet loading was negative. Strength testing showed 5/5 strength throughout the lower extremities. The patient was able to heel and toe walk without difficulty. There was no redness, effusion, warmth or joint l ine tenderness in the knees or ankles. RADIOGRAPHIC REVIEW: The patient's imaging was reviewed personally by me in detail with the patient during today 's visit. The MRI of the lumbar spine from 07/03/2017 shows evidence of moderately severe ce ntral canal stenosis at L2-L3 and L3-L4 due to a combination of facet arthritis and posterio r disc protrusion. IMPRESSION: Encounter Diagnoses Name Primary? 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 Medications were discussed in detail with the patient. He is currently taking methylpred nisolone 2 mg 3 times a day as well as the gabapentin 600 mg 3 times a day. The patient repo rts that he is 99% improved with these medications. He states that he took an initial medrol dosepak per package instructions and was started on gabapentin. Initially he was doing allan y well then developed a recurrence of symptoms despite being on the gabapentin. He was then placed on the current methylprednisolone dose and has been doing quite well since. He would however, like to get off these medications if possible. He is not sure whether he still ne eds them or not and we discussed a trial of "drug holiday". He will start to taper the brent pentin initially and see how he does with that. If he gets off it without a worsening of sy mptoms he will start to taper off the methylprednisolone. If his symptoms do not return he will stay off the medication. If the symptoms return he will resume them. 2. We dicussed that the explanation of his symptoms is not completely consistent with spin al stenosis as he does not report a worsening of symptoms with standing and walking and an i mprovement with sitting down. That and his profound improvement with corticosteroids make m e consider the diagnosis of polymyalgia rheumatica. I advised the patient that if his ESR an d CRP were tested now while taking the methylprednisolone we might get a false positive ther efore it is not worth testing for this at this time. If his symptoms return after a period of time while he is off the methylprednisolone it may be worth doing lab studies looking for evidence of polymyalgia rheumatica. 3. He will call me if he has any difficulty during the "drug holiday". 4. It is still quite possible that his symptoms are coming from the spinal stenosis and if other treatments fail and his symptoms return I would likely offer PT and/or epidural steroi d injections. I, Dr. Reji Mederos, personally performed the services described in this documentatio n, as scribed by Daisy Garcia MA in my presence, and it is both accurate and complete. ELECTRONICALLY EDITED AND SIGNED BY: Reji Mederos MD documented in thi s encounter Plan of Treatment +--------+---------+ + + + | Date | Type | Specialty | Care Team | Description | +--------+---------+ + + + | 02/19/ Office | Nephrology | Ismael Young MD | | | 2019 | Visit | | [address] [facility] | | | | | | [address] [place], [place] | | | | | | [address] | | | | | | | | +--------+---------+ + + + documented as of this encounter Procedures + +--------+ + + + | Procedure Name | Priori | Date/Time | Associated Diagnosis | Comments | | | ty | | | | + +--------+ + + + | LABS - EXTERNAL SCAN | | 09/20/2017 | | Results for this | | | | 12:00 AM | | procedure are in the | | | | PDT | | results section. | + +--------+ + + + documented in this encounter Results LABS - EXTERNAL SCAN (09/20/2017 12:00 AM PDT) + + + | Narrative | Performed At | + + + | Ordered by an | | | unspecified provider. | | + + + documented in this encounter Visit Diagnoses + + | Diagnosis | + + | Chronic bilateral low back pain with bilateral sciatica | + + | Spinal stenosis of lumbar region with radiculopathy Spinal stenosis, lumbar region, | | without neurogenic claudication | + + documented in this encounter
--- OUTSIDE RECORDS SUMMARY | ~2019-02-03 | XMS | Encounter Summary ---
Demographics + + + | Address | [address] | | | [place] [address] | + + + | Home Phone [...] Team Providers + +------+ + | Care Yarn Salvager Name | Role | Phone | + [...] | +--------+ + + + + | 11/05/ | Clinical | [facility] | | Pre-op evaluation | | 2019 | Support | Preoperative | | | | | Staff | [facility] | | | | | | [address] | | | | | | [address] | | | | | | [place], [place] | | | | | | [address] | | | | | | [phone] | | | +--------+ + + + [...] documented as of this encounter Progress Notes Cassie Mercado MA - 11/05/2018 2:00 PM PDTPatient here today for type and screen Blo od draw. Reji labs from Pt. Left arm 2 :23 PM PDTdocumented in this encounter Plan of Treatment [...] [address] | | | | | | [place] [address] | | | | | | [phone] | | | | | | | | +--------+---------+ + + + documented as of this encounter Procedures + +--------+ + + + | Procedure Name | Priori | Date/Time | Associated Diagnosis | Comments | | | ty | | | | + +--------+ + + + | CBC AND AUTO DIFF | Routin | 11/05/2018 | Hx of care home | Results for this | | | e | 2:13 PM | use of blood | procedure are in the | | | | PDT | thinners | results section. | + +--------+ + + + | INR | Urgent | 11/05/2018 | Chronic | Results for this | | | | 2:13 PM | anticoagulation Hx | procedure are in the | | | | PDT | of watermelon inspector use of | results section. | | | | | blood thinners | | | | | | Pre-op evaluation | | + +--------+ + + + | CBC, WITH | Routin | 11/05/2018 | Hx of watermelon inspector | Results for this | | DIFFERENTIAL | e | 2:13 PM | use of blood | procedure are in the | | | | PDT | thinners | results section. | + +--------+ + + + | ANTIBODY SCREEN | Routin | 11/05/2018 | Pre-op evaluation | Results for this | | | e | 2:13 PM | | procedure are in the | | | | PDT | | results section. | + +--------+ + + + | TYPE AND SCREEN | Routin | 11/05/2018 | Pre-op evaluation | Results for this | | | e | 2:13 PM | | procedure are in the | | | | PDT | | results section. | + +--------+ + + + | ABO & RH TYPE | Routin | 11/05/2018 | Pre-op evaluation | Results for this | | | e | 2:13 PM | | procedure are in the | | | | PDT | | results section. | + +--------+ + + + documented in this encounter Results CBC AND AUTO DIFF (11/05/2018 2:13 PM PDT) + + + + + + | Component | Value | Ref Range | Performed | Pathologist | | | | | At | Signature | + + + + + + | WHITE CELL | 11.20 (H) | 3.50 - 10.80 | [facility] | | | COUNT | | K/cu mm | [facility] | | + + + + + + | RED CELL | 3.59 (L) | 4.50 - 6.00 | [facility] | | | COUNT | | M/cu mm | [facility] | | + + + + + + | HEMOGLOBIN | 11.0 (L) | 13.5 - 17.5 | [facility] | | | | | g/dL | [facility] | | + + + + + + | HEMATOCRIT | 33.2 (L) | 41.0 - 53.0 % | [facility] | | | | | | [facility] | | + + + + + + | MCV | 92.3 | 80.0 - 100.0 fL | [facility] | | | | | | [facility] | | + + + + + + | MCH | 30.5 | 27.0 - 34.0 pg | [facility] | | | | | | [facility] | | + + + + + + | MCHC | 33.0 | 33.0 - 35.5 | [facility] | | | | | g/dL | [facility] | | + + + + + + | RDW | 13.7 | 11.5 - 14.5 % | [facility] | | | | | | [facility] | | + + + + + + | PLATELET | 233 | 150 - 400 K/cu | [facility] | | | COUNT | | mm | [facility] | | + + + + + + | MPV | 9.1 | 7.4 - 10.4 fL | [facility] | | | | | | [facility] | | + + + + + + | NEUTROPHIL | 74.0 (H) | 50.0 - 70.0 % | [facility] | | | % | | | [facility] | | + + + + + + | LYMPHOCYTE | 14.1 (L) | 18.0 - 42.0 % | [facility] | | | % | | | [facility] | | + + + + + + | MONOCYTE % | 8.1 | 3.5 - 9.0 % | [facility] | | | | | | [facility] | | + + + + + + | EOS % | 3.3 (H) | 0.0 - 3.0 % | [facility] | | | | | | [facility] | | + + + + + + | BASO % | 0.5 | 0.0 - 2.0 % | [facility] | | | | | | [facility] | | + + + + + + | NEUTROPHIL | 8.30 (H) | 1.80 - 7.70 | [facility] | | | # | | K/cu mm | [facility] | | + + + + + + | LYMPHOCYTE | 1.60 | 1.00 - 4.80 | [facility] | | | # | | K/cu mm | [facility] | | + + + + + + | MONOCYTE # | 0.90 | 0.10 - 0.90 | [facility] | | | | | K/cu mm | [facility] | | + + + + + + | EOS # | 0.40 | 0.00 - 0.50 | [facility] | | | | | K/cu mm | [facility] | | + + + + + + | BASO # | 0.10 | 0.00 - 0.10 | [facility] | | | | | K/cu mm | [facility] | | + + + + + + + + | Specimen | + + | Blood - Blood | | (substance) | + + + + + + + | Performing | Address | City/State/Zipcode | Phone Number | | Organization | | | | + + + + + | [facility] | [address] | [place] [address] | | | LAB | | | | + + + + + INR (11/05/2018 2:13 PM PDT) + + + + + + | Component | Value | Ref Range | Performed | Pathologist | | | | | At | Signature | + + + + + + | INR | 1.29 (H) | 0.90 - 1.20 INR | [facility] | | | | | | [facility] | | + + + + + + | PROTHROMBIN | 15.9 (H) | 11.8 - 14.7 sec | [facility] | | | TIME | | | [facility] | | + + + + + + + + | Specimen | + + | Blood - Blood | | (substance) | + + + + + | Narrative | Performed At | + + + | INR Therapeutic ranges for full anticoagulation: INR for Venous | | | Thromboembolism (2.0 - 3.0) INR INR for most | [facility] | | patients with mech. valves (2.5 - 3.5) INR | [facility] | + + + + + + + + | Performing | Address | City/State/Zipcode | Phone Number | | Organization | | | | + + + + + | [facility] | [address] | [place] [address] | | | LAB | | | | + + + + + ANTIBODY SCREEN (11/05/2018 2:13 PM PDT) + + + + + + | Component | Value | Ref Range | Performed | Pathologist | | | | | At | Signature | + + + + + + | Antibody | Negative | | [facility] | | | Screen | | | BLOOD BANK | | [...] BLOOD | [address] | [place] [address] | | | BANK | | | | + + + + + ABO & RH TYPE (11/05/2018 2:13 PM PDT) + + + + + [...] BLOOD | [address] | [place] [address] | | | BANK | | | | + + + + + documented in this encounter Visit Diagnoses + + | Diagnosis | + + | Chronic anticoagulation Encounter for long-term (current) use of anticoagulants | + + | 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
--- OUTSIDE RECORDS SUMMARY | ~2019-02-03 | XMS | Encounter Summary ---
Demographics + + + | Address | [address] | | | [place] [address] | + + + | Home Phone | | + + + | Preferred Language | Unknown | + + + | Marital Status | | + + + | Adventism Affiliation | 1041 | + + + | Race | Unknown | + + + | Ethnic Group | Unknown | + + + Author + + + | Author | [facility] | | | and [place] | + + + | Organization | [facility] | | | [...] [place] | | | | | [address] | | + + + + + Care Team Providers + +------+ + | Care Directory Clerk Name | Role | Phone | + +------+ + | Bartolome Frederick DO | PCP | | + +------+ + Encounter Details +--------+ + + + + | Date | Type | Department | Care Team | Description | +--------+ + + + + | 08/21/ | Orders Only | [facility] | Ismael Young MD | | | 2017 | | NEPHROLOGY [place] | [address] [place] | | | | | [address] [place] | [address] [place], [place] | | | | | [address] [place], [place] | [address] | | | | | [address] | | | | | | [phone] | | | +--------+ + + + [...] 2020 | Visit | | [address] [facility] | | | | | | [address] [place] | | | | | | [address] | | | | | | | | +--------+---------+ + + + documented as of this encounter Procedures + +--------+ + + + | Procedure Name | Priori | Date/Time | Associated Diagnosis | Comments | | | ty | | | | + +--------+ + + + | BASIC METABOLIC | Routin | 08/21/2016 | | Results for this | | PANEL | e | 9:05 AM | | procedure are in the | | | | PDT | | results section. | + +--------+ + + + documented in this encounter Results Basic Metabolic Panel (08/21/2016 9:05 AM PDT) + + + + + + | Component | Value | Ref Range | Performed | Pathologist | | | | | At | Signature | + + + + + + | Glucose, | 106 (A) | 70 - 100 mg/dL | EXTERNAL | | | Fasting | | | LAB | | + + + + + + | BUN | 34 (A) | 6 - 23 mg/dL | EXTERNAL | | | | | | LAB | | + + + + + + | Creatinine | 1.41 (A) | 0.70 - 1.25 | EXTERNAL | | | | | mg/dL | LAB | | + + + + + + | BUN/Creatin | 24.1 | 6.0 - 28.6 | EXTERNAL | | | ine Ratio | | | LAB | | + + + + + + | Calcium | 9.7 | 8.4 - 10.2 | EXTERNAL | | | | | mg/dL | LAB | | + + + + + + | Na | 137 | 132 - 143 | EXTERNAL | | | | | mmol/L | LAB | | + + + + + + | K | 4.6 | 3.6 - 5.1 | EXTERNAL | | | | | mmol/L | LAB | | + + + + + + | Cl | 101 | 95 - 112 mmol/L | EXTERNAL | | | | | | LAB | | + + + + + + | CO2 | 24 | 19 - 31 mmol/L | EXTERNAL | | | | | | LAB | | + + + + + + | Anion Gap | 16.6 | 7 - 21 mmol/L | EXTERNAL | | | | | | LAB | | + + + + + + | Estimated | 50 | mg/dL | EXTERNAL | | | [...]
--- OUTSIDE RECORDS SUMMARY | ~2019-02-03 | XMS | Encounter Summary ---
Demographics + + + | Address | [address] | | | [place] [address] | + + + | Home Phone | | + + + | Preferred Language | Unknown | + + + | Marital Status | | + + + | Oriental Orthodox Affiliation | 1041 | + + + | Race | Unknown | + + + | Ethnic Group | Unknown | + + + Author + + + | Author | [facility] | | | and [place] | + + + | Organization | [facility] | | | and [...] [place] | | | | | [address] | | + + + + + Care Team Providers + +------+ + | Care Hand Candle Dipper Name | Role | Phone | + +------+ + | Bartolome Frederick DO | PCP | | + +------+ + Encounter Details +--------+ + + + + | Date | Type | Department | Care Team | Description | +--------+ + + + + | 09/20/ | Orders Only | [facility] | Aly Shukla, | Chronic kidney | | 2019 | | [place]OLOG[place] | [employer] [address] | disease, stage III | | | | [address] | [address] | (moderate) (HCC); | | | | [address] [place], [place] | [facility] [place] | Essential (primary) | | | | [address] | [address] | hypertension; | | | | [phone] | [phone] | Proteinuria | | | | | [...] | Shots of liquor 0-1 | | [place]) | | | Standard drinks or | [...] 2019 | Visit | | [address] [facility] [place] | | | | | | [address] [place], [place] | | | | | | [address] | | | | | | | [...] Expires: | | | | | (moderate) ([facility]) | 03/15/2019 | | | | | Essential (primary) | | | | | | hypertension | | | | | | Proteinuria | | + +------+--------+ + + | Magnesium | Lab | Routin | Chronic kidney | Expected: | | | | e | disease, stage III | 09/12/2018, Expires: | | | | | (moderate) ([facility]) | 03/15/2019 | | | | | Essential (primary) | | | | | | hypertension | | | | | | Proteinuria | | + +------+--------+ + + | Protein/Creatinine | Lab | Routin | Chronic kidney | Expected: | | Ratio, Urine | | e | disease, stage III | 09/12/2018, Expires: | | | | | (moderate) ([facility]) | 03/15/2019 | | | [...]
--- OUTSIDE RECORDS SUMMARY | ~2019-02-03 | XMS | Encounter Summary ---
Demographics + + + | Address | [address] | | | [place] [address] | + + + | Home Phone | | + + + | Preferred Language | Unknown | + + + | Marital Status | | + + + | Sikhism Affiliation | 1041 | + + + | Race | Unknown | + + + | Ethnic Group | Unknown | + + + Author + + + | Author | [facility] | | | and [place] | + + + | Organization | [facility] | | | and [place] | + + + | Address | Unknown | + + + | Phone | Unavailable | + + + Support + + + + + | Name | Relationship | Address | Phone | + + + + + | Ai Castanead | ECON | [address] | | | | | [facility] | | | | | [address] | | + + + + + Care Team Providers + +------+ + | Care Comic Illustrator Name | Role | Phone | + +------+ + | Bartolome Frederick DO | PCP | | + +------+ + Reason for Referral Self-referral (Routine) +--------+ + + + + + | Status | Reason | Specialty | Diagnoses / | Referred By | Referred To | | | | | Procedures | Contact | Contact | +--------+ + + + + + | Closed | Specialty | Neurosurgery | Diagnoses | Otoniel, | TUALITY | | | Services | | Piriformis | Bartolome Dawn, | NEUROSURGERY | | | Required | | syndrome of | DO [address] | | | | | both sides | [address] | | | | | Spondylosis | [place], [place] | [address] | | | | | with | [address] | [place], [place] | | | | | myelopathy, | Phone: | [phone] | | | | | lumbar | [phone] | Phone: | | | | | region | Fax: | [phone] | | | | | Bowel and | [phone] | Fax: | | | | | bladder | | [phone] | | | | | incontinence | | | +--------+ + + + + + Reason for Visit + + + | Reason | Comments | + + + | Back Pain | FU | + + + Encounter Details +--------+---------+ + + + | Date | Type | Department | Care Team | Description | +--------+---------+ + + + | 07/22/ | Office | [place] [facility] | Bartolome Frederick | Spondylosis with | | 2019 | Visit | [facility] | E, DO [address] | myelopathy, lumbar | | | | [facility] [address] | [place], [place] | region (Primary Dx); | | | | [address] [place], | [address] | Bowel and bladder | | | | [place] [address] | [phone] | incontinence; | | | | [phone] | | Piriformis syndrome | | | | | | of both sides; | | | | | | History of mitral | | | | | | valve replacement | | | | | | with mechanical | | | | | | valve; Anticoagulant | | | | | | long-term use; | | | | | | Abrasion; Need for | | | | | | Tdap vaccination; | | | | | | Screening for AAA | | | | | | (abdominal aortic | | | | | | aneurysm); Encounter | | | | | | for hepatitis C | | | | | | screening test for | | | | | | low risk patient | +--------+---------+ + + + Social History [...] | Shots of liquor 0-1 | | [place]) | | | Standard drinks or | [...] + + + | Blood Pressure | 122/58 | 07/22/2018 8:56 AM | Med cuff, right arm | | | | PDT | | + + + + + | Pulse | 73 | 07/22/2018 8:56 AM | Reg | | | | PDT | | + + + + + | Temperature | - | - | | + + + + + | Respiratory Rate | 14 | 07/22/2018 8:56 AM | | | | | PDT | | + + + + + | Oxygen Saturation | 97% | 07/22/2018 8:56 AM | RA | | | | PDT | | + + + + + | Inhaled Oxygen | - | - | | | Concentration | | | | + + + + + | Weight | 92.4 kg (203 lb 9.6 | 07/22/2018 8:56 AM | | | | oz) | PDT | | + + + + + | Height | 177.8 cm (5' 10") | 07/22/2018 8:56 AM | Stated | | | | PDT | | + + + + + | Body Mass Index | 29.21 | 07/22/2018 8:56 AM | | | | | PDT | | + + + + + documented in this encounter Progress Yolie Montiel CC [facility] - 07/22/2018 9:00 AM PDTAfter obtaining verbal order from Dr. Cortez vergara, pt was given Adacel Signed consent was obtained and questionnaire reviewed. Patient was instructed to remain in the clinic for 20 minutes and report any adverse reaction to me immediately. Pt verbalized understanding of information given on VIS. Pt tolerated well and ambulated out of clinic unassisted. Pt's own med: NO Education Provided: YES Amount Wasted: NONE Yolie Kramer CMA Bartolome Schafer DO - 07/22/2018 9:00 AM PDT Patient ID: Lupillo Castaneda is a 68 y.o. year old male Chief Complaint Patient presents with Back Pain FU Assessment: Spondylosis with myelopathy, lumbar region (Primary) - tiZANidine HCl; Take 1 capsule by mouth nightly. Dispense: 30 capsule; Refill: 0 - Ambulatory referral to Neurosurgery Bowel and bladder incontinence - Ambulatory referral to Neurosurgery Piriformis syndrome of both sides - Ambulatory referral to Neurosurgery History of mitral valve replacement with mechanical valve Anticoagulant long-term use Abrasion - Tdap vaccine greater than or equal to 7yo IM Need for Tdap vaccination - Tdap vaccine greater than or equal to 7yo IM Screening for AAA (abdominal aortic aneurysm) - US AAA Screening; Future; Expected date: 07/22/2018 Encounter for hepatitis C screening test for low risk patient - Hepatitis C RNA, Quant, NAAT; Future Plan: -Referral to Dr. Durbin at [facility] Neurosurgeon, his office will call you to schedule appointment (If Dr. Durbin will not see him consider [facility] in [place]) -Start Tizanidine 4 mg nightly for 1 week -Go to lab to recheck INR after use of Tizanidine -Order for AAA screening, sent to [facility], have completed when ECHO is complet ed -Hep C screening blood work needs to be ordered with next order of blood work Subjective: HPI Yaron presents to the clinic today to follow up regarding back pain. He tried calling a couple times to Dr. Ortez office to get paperwork to get established, but he never heard anything. He finally called their office and canceled. He has seen Dr. Davy flores at [facility], but was told that if he completed back surgery he would have to break his back, and the surgery would be 10-12 hours. His back pain is described low back pain with radiati on down into the top of the thighs and the side of right thigh. He is completing pool therap y once a week, he feels a lot better in the water, but as soon as he gets out the pain comes back. Besides the pool therapy rest helps his back. He takes Gabapentin 600 mg TID, and if he is in more pain he will take 1200 mg at night. He declines wanting to use any narcotics. He also uses Baclofen 20 mg TID. He is having trouble with incontinent issues with bowels an d bladder at bedtime. He would like a referral to Dr. Durbin at [facility] for a second opinion. He has an abrasion on his left wrist and forearm, the abrasion is from a nail. He has a history of smoking more then 100 cigarettes in his life time, he has never been sc reened for AAA. Current Outpatient Medications Medication Sig Dispense Refill [...] No current facility-administered medications for this visit. 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 CKD (chronic kidney disease), stage III History of mitral valve replacement with mechanical valve Tobacco abuse GI bleed not requiring more than 4 units of blood in 24 hours, ICU, or surgery Hypotension due to medication Anemia Anticoagulant long-term use Aortic stenosis, moderate Piriformis syndrome of both sides 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 Deconditioned low back Spondylosis without myelopathy or radiculopathy, lumbar region Social History Socioeconomic History Marital status: Spouse [...] Last attempt to quit: 03/03/2018 Years since quittin.3 Smokeless tobacco: Current User Types: Snuff Substance and Sexual Activity Alcohol use: Yes Alcohol/week: 0.0 - 0.6 oz Frequency: Monthly or less Drinks per session: 1 or 2 Binge frequency: Never Comment: Four beers once per year (during [place]) Drug use: No Sexual activity: Yes Partners: Female control/protection: Post-menopausal Other Topics Concern Not on file Social History Narrative Exercise: rehab/ physical therapy, also walking when he can Caffeine: soda once in awhile Living situation: with Ai Review of Systems Gastrointestinal: Positive incontinence bowels at night Genitourinary: Positive incontinence bladder at night Musculoskeletal: Positive for back pain (with radiation down top of thighs and side of righ t thigh). Skin: Positive for wound. Rash: left wrist and forearm. Objective: Vitals: BP 122/58 Comment: Med cuff, right arm | Pulse 73 Comment: Reg | Resp 14 | Ht 1.778 m (5' 10") Comment: Stated | Wt 92.4 kg (203 lb 9.6 oz) | SpO2 97% Comment: RA | BMI 29.21 kg/m Physical Exam Constitutional: He appears well-developed and well-nourished. Eyes: Pupils are equal, round, and reactive to light. Cardiovascular: Normal rate, regular rhythm and normal heart sounds. Mechanical valve sounds Pulmonary/Chest: Effort normal and breath sounds normal. Musculoskeletal: Slower with ambulation to exam table with stiff movements. Neurological: He is alert. Skin: Abrasion (left forearm) noted. Psychiatric: He has a normal mood and affect. Entered by Omid Sanches [facility], acting as scribe for Juan Daniel Frederick D.O. The documentation recorded by the scribe accurately reflects the service I personally perfo rmed and the decisions made by me. documented in this encounter Plan of Treatment +--------+---------+ + + + | Date | Type | Specialty | Care Team | Description | +--------+---------+ + + + | 02/19/ | Office | Nephrology | Ismael Young MD | | | 2019 | Visit | | [address] [facility] | | | | | | [address] [place], [place] | | | | | | [id number] | | | | | | | | +--------+---------+ + + + + +---------+--------+ + + | Name | Type | Priori | Associated Diagnoses | Order Schedule | | | | ty | | | + +---------+--------+ + + | US AAA Screening | Imaging | Routin | Screening for AAA | Expected: | | | | e | (abdominal aortic | 07/22/2018, Expires: | | | | | aneurysm) | 07/23/2019 | + +---------+--------+ + + | Hepatitis C RNA, | Lab | Routin | Encounter for | 1 Occurrences | | Quant, NAAT | | e | hepatitis C | starting 07/22/2018 | | | | | screening test for | until 07/23/2019 | | | | | low risk patient | | + +---------+--------+ + + + + +--------+ + + | Name | Type | Priori | Associated Diagnoses | Order Schedule | | | | ty | | | + + +--------+ + + | Neurosurgery, | Outpatient | Routin | Piriformis | Ordered: 07/22/2018 | | External - AMB | Referral | e | syndrome of both | | | Referral | | | sides Spondylosis | | | | | | with myelopathy, | | | | | | lumbar region Bowel | | | | | | and bladder | | | | | | incontinence | | + + +--------+ + + documented as of this encounter Visit Diagnoses + + | Diagnosis | + + | Spondylosis with myelopathy, lumbar region - Primary | + + | Bowel and bladder incontinence | + + | Piriformis syndrome of both sides | + + | History of mitral valve replacement with mechanical valve Heart valve replaced by | | other means | + + | Anticoagulant long-term use Encounter for long-term (current) use of anticoagulants | + + | Abrasion Abrasion or friction burn of other, multiple, and unspecified sites, without | | mention of infection | + + | Need for Tdap vaccination Need for prophylactic vaccination with combined | | iogvixazqx-uhdkagq-vomcdqqbp (DTP) vaccine | + + | Screening for AAA (abdominal aortic aneurysm) Screening for other and unspecified | | cardiovascular conditions | + + | Encounter for hepatitis C screening test for low risk patient | + + documented in this encounter
--- OUTSIDE RECORDS SUMMARY | ~2019-02-03 | XMS | Encounter Summary ---
Demographics + + + | Address | [address] | | | [place] [address] | + + + | Home Phone | | + + + | Preferred Language | Unknown | + + + | Marital Status | | + + + | Episcopalian Affiliation | CAT | + + + | Race | White | + + + | Ethnic Group | Not or | + + + Author + + + | Author | [facility] | + + + | Organization | [facility] | + + + | Address [...] Team Providers + +------+ + | Care Make Up Artist Name | Role | Phone | + +------+ + PCP | Unavailable | + +------+ + Encounter Details +--------+ + + + + | Date | Type | Department | Care Team | Description | +--------+ + + + + | 07/04/ | Procedure - | UNKNOWN DEPARTMENT | Other, Faculty | ECHO (CHRISTINE or TTE) | | 2002 | | [address] [facility] | [phone] | | | | Transcribed | [address] | | | | | | [place], [place] | | | | | | [address] | | | +--------+ + + + [...] 12:00 AM PDTAssociated Order(s): TRANSTHORACIC ECHOCARDIOGRAM, ADULT [facility] DATE: 07/04/02 [place], [place] MED REC NO: [id number] NAME: BASILIA CASTANEDA ECHOCARDIOGRAPHY REPORT BIRTHDATE: [birth year] [...] [address] | | | | | | [place] [address] | | | | | | [phone] | | | | | | | [...] Other, Faculty - 07/04/2002 12:[address] [facility] DATE: | | 07/04/02 [place], [place] MED REC NO: [id number] NAME: BASILIA CASTANEDA | | ECHOCARDIOGRAPHY REPORT [...]
--- OUTSIDE RECORDS SUMMARY | ~2019-02-03 | XMS | Encounter Summary ---
Demographics + + + | Address | [address] | | | [place] [address] | + + + | Home Phone [...] Team Providers + +------+ + | [facility] Coordinator Name | Role | Phone | + +------+ + PCP | Unavailable | + +------+ + Encounter Details +--------+ + + + + | Date | Type | Department | Care Team | Description | +--------+ + + + + | 07/08/ | Procedure - | | Record, Operation | Operative Report | | 2002 | | | | | | | Transcribed | | [...] [id number] | | | | | | [place] [address] | | | | | | [phone] | | | | | | | | +--------+---------+ + + + documented as of this encounter Procedures + +--------+ + + + | Procedure Name | Priori | Date/Time | Associated Diagnosis | Comments | | | ty | | | | + +--------+ + + + | OPERATION RECORD | | 07/08/2002 | | Results for this | | | | | | procedure are in the | | | | | | results section. | + +--------+ + + + documented in this encounter Results OPERATION RECORD (07/08/2002) + + | Transcriptions | + + | Interface, Engineering Equipment Operator In - 08/29/2005 3:09 AM PDT | | [place] [address] | | [place], [place] [address] | | [facility] RECORDMed Rec No.: | | [id number] Date: 07/08/2002Name: Lupillo De La Paz SURGEON: | | Elbert Daly M.D.ASSISTANTS: Aly Truong M.D. | | Yakelin Elder M.D.PREOPERATIVE DIAGNOSIS(ES):1. 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 Diffuse nonobstructive coronary disease.3. Anemia.POSTOPERATIVE | | DIAGNOSIS(ES):1. Enterococcus mitral valve endocarditis, status post embolization to | | his spleen and kidney.2. Diffuse nonobstructive coronary disease.3. | | Anemia.OPERATION PERFORMED:Mitral valve replacement with a 31-mm St. Donald | | valve.SPECIMEN(S) REMOVED:Not dictated.ANESTHESIA:General via endotracheal | | anesthesia.PUMP TIME:151 minutes.CLAMP TIME:100 minutes.COMPLICATIONS:None | | apparent.HISTORY OF PRESENT ILLNESS:Mr. De La Paz is a 52-year-old gentleman who has had | | approximately afour-month history of malaise and has undergone a myriad of workups by | | [facility] physician, ultimately ending up having mitral valveendocarditis and | | subacute bacterial endocarditis because of enterococcus onhis mitral valve. He was | | referred to Dr. Colvin and to [facility]. He wasadmitted and underwent cardiac catheterization | | showing diffuse,nonobstructive coronary disease and presents at this time for | | surgicalrepair versus replacement of his valve.FINDINGS:Findings showing anterior and | | posterior leaflet endocarditis utingmopcet-osb-zswsxzj lesion in the anterior leaflet | | and this was notamenable to repair and therefore, replaced. Two chest tubes were | | used,Carlton-Zavala drain, and both atrial and ventricular wires. Comes off pumpon | | dobutamine 5 mcg/kg/minute and received 4 units of packed cells.PROCEDURE:After | | discussing the risks, benefits and alternatives on a number ofoccasions with he, his | | and his daughter, the risks discussed, but notlimited to, , stroke, myocardial | | infarction, bleeding, infection,transfusion with almost 100% need for transfusion with | | a baselinehematocrit of 28, organ dysfunction and failure, especially kidney becauseof | | his embolization and his renal insufficiency, baseline creatinine of2.5, et cetera. He | | seemed to understand and wished to proceed.After being correctly identified, he was | | brought to the operating room andplaced supine on the operating room table. After all | | anesthetic lines andmonitors were placed, he received preoperative continuing IV | | antibioticsand Amicar. He was placed under general endotracheal anesthesia,positioned, | | and prepped and draped in normal sterile routine fashion.A median sternotomy was created | | in the usual fashion. Hemostasis wasachieved and then the patient was systemically | | heparinized. A pericardialwell was created. Cardiopulmonary bypass was instituted | | using dual venouscannulation and standard aortic cannulation. Temperature was taken to | | 28degrees. Both antegrade and retrograde cardioplegia were used during thiscase with | | excellent myocardial protection noted. Control of both cava wasperformed and [place] | | groove was exposed. Once at temperature,cross-clamp was placed, cardioplegia was given | | at this time at routineintervals keeping the myocardial temperature below 10 degrees | | Celsius atall times when the cross-clamp was in place. The atrium was nowcross-clamped | | in place, the atrium was opened and the heart wasmanipulated. At all other times prior | | to the cross-clamp being placed, theheart was kept extremely quiescent as not to incite | | any furtherembolization off this valve.The left atrium was opened, the incisions | | extended and a Lemole retractorwas placed providing excellent exposure of the mitral | | valve. The valve wasinspected in its entirety. In A2 segment of his mitral valve was a | | largevegetation that was mostly sessile but had evidence of an area where | | thisembolized. There was also a corresponding lesion on P2. This lesion wasdensely | | adherent to the anterior leaflet of the mitral valve and wasactually penetrating through | | this valve and thus, in my opinion, not makingit amenable to surgical repair. The size | | of the lesion was 3 cm x 2 cm insize. The corresponding lesion on the P2 of the mitral | | valve was 1 cm x0.5 cm. The anterior leaflet was resected in toto and sent to | | pathology;cultures were obtained.The posterior portion of P2 was then also resected. | | Sutures of 2-0[place] sutures were placed around the annulus; the valve was | | sizedto [address] Donald valve was opened per strategic accounts manager's instructions,rinsed in | | antibiotic solution and inserted into the annulus with thevertical sutures, as | | previously described. Excellent excursion of thevalve was noted with both leaflets | | moving easily and anterior and posteriorazimuth of the valve. It is also noted that the | | papillary muscles werere-suspended to the annulus using 4-0 Guernsey-Gianfranco.A 10-mm Cortes was | | placed between the leaflets of the valve to keep itincompetent for de-airing purposes. | | Rewarming was begun and the atriotomywas closed. With the atriotomy closed and sutures | | cinched, with fullde-airing procedures done, the cross-clamp was removed. With the | | atriotomyclosed, both atrial and ventricular wires were placed. Rewarming hadbegun. | | Retrograde cannula was removed and the pursestring suture was tied.The superior | | venocaval cannula was pulled back into the right atrium andwith this in the right atrium | | the inferior venacaval cannula was removed,pursestring sutures were tied, and | | additional sutures were placed for addedsecurity.Once completely and thoroughly rewarmed | | with excellent hemodynamics andlaboratory values, the patient was easily weaned from | | cardiopulmonarybypass support on the above-mentioned drip package. Atrial pacing at | | arate of 100. Once off pump, protamine sulfate was administered to fullyreverse the | | effects of heparin with stable hemodynamics and meticuloushemostasis achieved. Usual | | support tubes placed. Closure was in theroutine fashion. The pericardium was re-closed | | over the ascending aortaand anterior surface of the heart and then the sternum was | | closed usingmultiple #5 stainless wires and the presternal tissues were irrigated | | withantibiotic irrigant and closed in layers using running absorbable suture.The patient | | tolerated the procedure well. No apparent intraoperativecomplications. He was | | transferred to the Cardiac Intensive Care Unit incritical, but hemodynamically stable, | | condition.Elbert Daly M.D.DANISH:X44D: 07/08/2002T: 07/09/2002C: 07/24/2002 | | [id number]:Eric Golden Aminata ColvinNEVADA REG[facility]AL [facility] 3153Brukate Kulkarni M.D./ALVIN J. SITEMAN CANCER CENTERIvan 62PHILLIP | | Yodit CAMEJO423 [facility] STATES THAT.[place] [address]XCOIAVal JOHNSON M.D.PATON | | [facility] M.D.[address] HOSPITALOZZIEBari [place] [id number] | | Yodit HANEY | |case with excellent myocardial protection noted. Control of both cava was | |performed and [place] groove was exposed. Once at temperature, | |cross-clamp was placed, cardioplegia was given at this time at routine | |intervals keeping the myocardial temperature below 10 degrees Celsius at | |all times when the cross-clamp was in place. The atrium was now | |cross-clamped in place, the atrium was opened and the heart was | |manipulated. At all other times prior to the cross-clamp being placed, the | |heart was kept extremely quiescent as not to incite any further | |embolization off this valve. | | | |The left atrium was opened, the incisions extended and a Lemole retractor | |was placed providing excellent exposure of the mitral valve. The valve was | |inspected in its entirety. In A2 segment of his mitral valve was a large | |vegetation that was mostly sessile but had evidence of an area where this | |embolized. There was also a corresponding lesion on P2. This lesion was | |densely adherent to the anterior leaflet of the mitral valve and was | |actually penetrating through this valve and thus, in my opinion, not making | |it amenable to surgical repair. The size of the lesion was 3 cm x 2 cm in | |size. The corresponding lesion on the P2 of the mitral valve was 1 cm x | |0.5 cm. The anterior leaflet was resected in toto and sent to pathology; | |cultures were obtained. | | | |The posterior portion of P2 was then also resected. Sutures of 2-0 | |[place] sutures were placed around the annulus; the valve was sized | |to [address] Donald valve was opened per strategic accounts manager's instructions, | |rinsed in antibiotic solution and inserted into the annulus with the | |vertical sutures, as previously described. Excellent excursion of the | |valve was noted with both leaflets moving easily and anterior and posterior | |azimuth of the valve. It is also noted that the papillary muscles were | |re-suspended to the annulus using 4-0 [place]-Gianfranco. | | | |A 10-mm Cortes was placed between the leaflets of the valve to keep it | |incompetent for de-airing purposes. Rewarming was begun and the atriotomy | |was closed. With the atriotomy closed and sutures cinched, with full | |de-airing procedures done, the cross-clamp was removed. With the atriotomy | |closed, both atrial and ventricular wires were placed. Rewarming had | |begun. Retrograde cannula was removed and the pursestring suture was tied. | |The superior venocaval cannula was pulled back into the right atrium and | |with this in the right atrium the inferior venacaval cannula was removed, | |pursestring sutures were tied, and additional sutures were placed for added | |security. | | | |Once completely and thoroughly rewarmed with excellent hemodynamics and | |laboratory values, the patient was easily weaned from cardiopulmonary | |bypass support on the above-mentioned drip package. Atrial pacing at a | |rate of 100. Once off pump, protamine sulfate was administered to fully | |reverse the effects of heparin with stable hemodynamics and meticulous | |hemostasis achieved. Usual support tubes placed. Closure was in the | |routine fashion. The pericardium was re-closed over the ascending aorta | |and anterior surface of the heart and then the sternum was closed using | |multiple #5 stainless wires and the presternal tissues were irrigated with | |antibiotic irrigant and closed in layers using running absorbable suture. | |The patient tolerated the procedure well. No apparent intraoperative | |complications. He was transferred to the Cardiac Intensive Care Unit in | |critical, but hemodynamically stable, condition. | | | | | | | |Elbert Daly M.D. | | | |DANISH:X44 | | | | | |C: 07/24/2002 [facility] | |[id number] | | | |cc: | | | | | | | |H. [place] Colvin M.D | |[facility] | | [address] | | | | | |Galo Kulkarni M.D./[facility] | |[facility] | | | | | |ANTOINETTE CAMEJO M.D. | |[address] [facility] STATES THAT. | |[place] [address] | | | | | | | |PATY JOHNSON M.D. | |[facility] | |[place], [place] | | | | | | | | | | | | | | | |ELBERT HERMOSILLO M.D. | |[address] | |[place] [address] | | | | | | | |SERVANDO HANEY M.D. | + + documented in this encounter Visit Diagnoses Not on filedocumented in this encounter"
--- OUTSIDE RECORDS SUMMARY | ~2019-02-03 | XMS | Encounter Summary ---
Demographics + + + | Address | [address] | | | [place] [address] | + + + | Home Phone | | + + + | Preferred Language | Unknown | + + + | Marital Status | | + + + | Pentecostal Affiliation | CAT | + + + [...] Team Providers + +------+ + | Care Cash Register Repairer Name | Role | Phone | + +------+ + | Bartolome Frederick DO | PCP | | + +------+ + Reason for Referral Physical Therapy (Routine) + +--------+ + + + + | Status | Reason | Specialty | Diagnoses / | Referred By | Referred To | | | | | Procedures | Contact | Contact | + +--------+ + + + + | New Request | | Physical | Diagnoses | Ede, | | | | | Therapy | S/P lumbar | Jeimy Miles, | | | | | | fusion | PA-C [address] | | | | | Procedures | [address] | | | | | | PHYSICAL | [address] | | | | | | THERAPY | [place] | | | | | | REFERRAL | [place] [address] | | | | | | | Phone: | | | | | | | [phone] | | | | | | | Fax: | | | | | | | [phone] | | + +--------+ + + + + Reason for Visit +---------+ + | Reason | Comments | +---------+ + | Post Op | Lumbar | +---------+ + Encounter Details +--------+---------+ + + + | Date | Type | Department | Care Team | Description | +--------+---------+ + + + | 01/30/ | Office | [facility] | Jeimy Mera, | S/P lumbar fusion | | 2019 | Visit | Neurosurgery at [facility] | PA-C [address] | (Primary Dx); Lumbar | | | | [address] | [address] | degenerative disc | | | | [address] | [place] [address] | disease; Lumbar | | | | [place], [place] | [phone] | spondylosis; | | | | [phone] | | Spondylolisthesis of | | | | [phone] | | lumbar region; | | | | | | Chronic [...] + + + | Blood Pressure | 128/76 | 01/30/2019 1:28 PM | | | | | PST | | + + + + + | Pulse | 95 | 01/30/2019 1:28 PM | | | | | PST | | + + + + + | Temperature | 36.8 C (98.3 F) | 01/30/2019 1:28 PM | | | | | PST | | + + + + + | Respiratory Rate | - | - | | + + + + + | Oxygen Saturation | 94% | 01/30/2019 1:28 PM | | | | | PST | | + + + + + | Inhaled Oxygen | - | - | | | Concentration | | | | + + + + + | Weight | 95 kg (209 lb 7 oz) | 01/30/2019 1:28 PM | | | | | PST | | + + + + + | Height | 172.7 cm (5' 8") | 01/30/2019 1:28 PM | | | | | PST | | + + + + + | Body Mass Index | 31.84 | 01/30/2019 1:28 PM | | | | | PST | [...] Instructions Patient Instructions Jeimy Mera PA-C - 01/30/2019 1:45 PM PST-Had a fall last night , with bruising on head. Spoke to Dr Durbin and we recommend going to the ER now for a CT. Pt d oes not want to get one now, but wait until he is back home in [place]. Watch for Headache , vomiting, weakness, numbness, change in vision, change in speech, trouble staying awake. I f you notice any of these symptoms, go to the nearest ER. -Continue weaning out our lumbar brace. -Increase gait as tolerated. No bending or twisting. -no lifting over 15lbs -No NSAIDS at least 6 months after spinal fusion. -PT ordered. -Follow up XR ordered to get prior to next appointment. -Return to clinic in 3 months, or sooner should concerns arise. documented in this encounter Progress Notes Jeimy Mera PA-C - 01/30/2019 1:45 PM PST Neurosurgery - Follow Up Chief Complaint: Post Op (Lumbar) Referring Provider: Bartolome Frederick DO History of Present Illness: Mr. De La Paz, a 68 y.o. male, was seen today for a neurosurgical follow up s/p XLIF L2-4, Pos terolateral fusion L2-4 on 11/06/[address] Durbin. Today he is feeling well. He denies pain, numbness or tingling in his back or lower extremi ties. He is happy with the results of surgery. He wears his lumbar brace about 15% of the ti me now. He will wear his brace for long trips and when he is working in the yard. He gets so me soreness in his anterior thighs after a busy day. He feels he is increasing his strength, but would like to do some physical therapy. Denies incontinence of bowel or bladder. He states that the last 2 days he felt ill with a flu/cold. Last night he felt weak and fel l from ground level in his living room. He hit his head and got 2 small bruises on the right side of his face. His family called an ambulance but he refused to go. Today he is feeling well. He denies loss of consciousness, HEATON, nausea/vomiting, problems with vision, change in mental status, pain, N/T, weakness, chest pain/palpitations, SOB. Review of Systems Constitutional: Negative. HENT: Positive for hearing loss. Eyes: Negative. Respiratory: Negative. Cardiovascular: Negative. Gastrointestinal: Negative. Genitourinary: Negative. Musculoskeletal: Negative. Skin: Negative. Neurological: Negative. Endo/Heme/Allergies: Bruises/bleeds easily. Psychiatric/Behavioral: Negative. Allergies Allergen [...] times daily as needed (muscl e spasms). Mjccmsc-Zawhcgtis-Whmk oral tablet Take by mouth once daily. [...] 600 mg by mouth three times daily. rOPINIRole 4 mg oral tablet Take 4 mg by mouth once daily in the evening. tamsulosin 0.4 mg oral capsule Take 0.4 [...] 11/11/18 and then dose adjust per your news commentator No current facility-administered medications for this visit. [...] Last attempt to quit: 03/03/2018 Years since quittin.9 Smokeless tobacco: Current User Types: Chew Substance Use Topics Alcohol use: No Family History Problem Relation Hypertension Mother Cancer Mother Hypertension Father Heart Disease Father Stroke Father Physical Exam: BP 128/76 (BP Location: Left upper arm, Patient Position: Sitting) | Pulse 95 | Temp 36.8 C (98.3 F) | Ht 1.727 m (5' 8") | Wt 95 kg (209 lb 7 oz) | SpO2 94% | BMI 31.84 kg/ m | BSA 2.13 m Body mass index is 31.84 kg/m. General: NAD, speech fluent, mood and behavior within normal limits HEENT: NCAT Resp: non-labored Neurological: CRANIAL NERVES II PERRL, visual cosby intact. III, IV, Extraocular movements intact. V Facial sensation intact to light touch. VII Facies symmetric. VIII Hearing WNL. IX, X Normal phonation, palate elevates in midline. XI Good SCM and Trapezius muscle function bilaterally. XII Tongue protrudes in midline. Musculoskeletal: Gait: Normal. Romberg: Negative Tone: Normal tone in upper and lower extremities MOTOR SCORE LEFT RIGHT L2 (Hip Flex) 4+ 4+ L3 (Knee Ext) 5 5 L4 (Dorsiflexion) 5 5 L4 (Inversion) 5 5 L5 (EHL) 5 5 S1 (Plantar Flex) 5 5 TENDON REFLEXES LEFT RIGHT L3-4 (Knee jerk) 1 1 S1-2 (Achilles) 0 0 Sensory: Sensation grossly intact to light touch throughout. Skin: 1cm diameter purpura on RIGHT cheekbone and on jawline. No Raccoon eyes or gunn sig ns. Surgical Incision: Lateral and posterior lumbar incisions well healed. No dehiscence or moe inage. No ecchymosis, erythema, or fluctuance. Labs Lab Results Component Value Date INRPT 1.28 11/09/2018 INRPT 15.8 11/09/2018 Lab Results Component Value Date APTT 29.3 11/06/2018 Diagnostic Results: X-RAY SPINE LUMBOSACRAL 2 VIEWS: 01/30/19 CLINICAL HISTORY: 68 y/o M patient. Back pain. Follow-up from prior lumbar surgery. COMPARISON: 12/05/2018. TECHNIQUE: AP and lateral views of the lumbar spine. FINDINGS: Surgical sequela of posterior mid lumbar fusion with screws bilaterally at L2, L3 and L4 an d interbody disc spacers at L2-3 and L3-4. Retrolisthesis of L2 with respect to L3 measures 7 mm, stable from 12/05/2018. Retrolisthesis of L3 with respect to L4 measures 3 mm, also stable since 12/05/2018. No silvio dence of hardware failure. No fracture lines are identified. Vertebral body heights are maintained. Eejy-nu-lfjxtvej spondylotic changes are again seen in the upper lumbar levels. IMPRESSION: Stable sequela of posterior fusion. Stable retrolisthesis at L2-3 and L3-4. No new abnormalities identified. Assessment: 1. S/P lumbar fusion 2. Lumbar degenerative disc disease 3. Lumbar spondylosis 4. Spondylolisthesis of lumbar region 5. Chronic anticoagulation Plan: -Pt had a fall last night, with bruising on head. Spoke to Dr Durbin and we recommend going to the ER now for a CT to rule out a bleed, because he is on Warfarin. Pt does not want to get one now, but wait until he is back home in [place]. Encouraged pt to watch for Headache, vomiting, weakness, numbness, change in vision, change in speech, trouble staying awake. If you notice any of these symptoms, go to the nearest ER. -X-rays stable, pt denies back pain. -Continue weaning out our lumbar brace. -Increase gait as tolerated. No bending or twisting. -no lifting over 15lbs -No NSAIDS at least 6 months after spinal fusion. -PT ordered. -Follow up XR ordered to get prior to next appointment. -Return to clinic in 3 months, or sooner should concerns arise. Jeimy Mera PA-C [facility] NEUROS[facility]ERY AT [address] [place] [address] [place] [address] [phone] Alida Galdamez MA - 01/30/2019 1:45 PM PSTReview of Systems Constitutional: Negative. HENT: Positive for hearing loss. Eyes: Negative. Respiratory: Negative. Cardiovascular: Negative. Gastrointestinal: Negative. Genitourinary: Negative. Musculoskeletal: Negative. Skin: Negative. Neurological: Negative. Endo/Heme/Allergies: Bruises/bleeds easily. Psychiatric/Behavioral: Negative. documented in [...] [address] | | | | | | [place] [address] | | | | | | [phone] | | | | | | | | +--------+---------+ + + + + +---------+--------+ + + | Name | Type | Priori | Associated Diagnoses | Order Schedule | | | | ty | | | + +---------+--------+ + + | X-RAY SPINE | Imaging | Routin | S/P lumbar fusion | Expected: | | LUMBOSACRAL 2 VIEWS | | e | | 01/30/2019, Expires: | | | | | | 03/02/2020 | + +---------+--------+ + + documented as of this encounter Visit Diagnoses + + | Diagnosis | + + | S/P lumbar fusion - Primary Arthrodesis status | + + | Lumbar degenerative disc disease Degeneration of lumbar or lumbosacral intervertebral | | disc | + + | Lumbar spondylosis Lumbosacral spondylosis without myelopathy | + + | Spondylolisthesis of lumbar region Acquired spondylolisthesis | + + | Chronic anticoagulation Encounter for long-term (current) use of anticoagulants | + + documented in this encounter
--- OUTSIDE RECORDS SUMMARY | ~2019-02-03 | XMS | Encounter Summary ---
Demographics + + + | Address | [address] | | | [place] [address] | + + + | Home Phone | | + + + | Preferred Language | Unknown | + + + | Marital Status | | + + + | Orthodoxy Affiliation | 1041 | + + + | Race | Unknown | + + + | Ethnic Group | Unknown | + + + Author + + + | Author | [facility] | | | and [place] | + + + | Organization | [facility] | | | and [place] | + + + | Address | Unknown | + + + | Phone | Unavailable | + + + Support + + + + + | Name | Relationship | Address | Phone | + + + + + | Ai De La Paz | ECON | [address] | | | | | [address] [address] [facility] | | | | | [address] | | + + + + + Care Team Providers + +------+ + | Care Bingo Worker Name | Role | Phone | + +------+ + PCP | Unavailable | + +------+ + Encounter Details +--------+ + + + + | Date | Type | Department | Care Team | Description | +--------+ + + + + | 10/30/ | [facility] | [facility] | Khai Ackerman | | | 2001 | Encounter | MED CTR XRAY [address] | [address] | | | | | [address] | | | | | | [place] [address] | | | | | | [phone] | | | +--------+ + + + [...] 2019 | [facility] | | [address] [facility] | | | | | | [address] [place], [place] | | | | | | [address] | | | | | | | | +--------+---------+ + + + documented as of this encounter Visit Diagnoses Not on filedocumented in this encounter"
--- OUTSIDE RECORDS SUMMARY | ~2019-02-03 | XMS | Encounter Summary ---
Demographics + + + | Address | [address] | | | [place] [address] | + + + | Home Phone | | + + + | Preferred Language | Unknown | + + + | Marital Status | | + + + | Confucianist Affiliation | 1041 | + + + | Race | Unknown | + + + | Ethnic Group | Unknown | + + + Author + + + | Author | [facility] | | | and [place] | + + + | Organization | [facility] | | | [...] [place] | | | | | [address] | | + + + + + Care Team Providers + +------+ + | Care Scheduling Assistant Name | Role | Phone | + +------+ + | Bartolome Frederick DO | PCP | | + +------+ + Reason for Visit +--------+ + | Reason | Comments | +--------+ + | Other | lab orders | +--------+ + Encounter Details +--------+ + + + + | Date | Type | Department | Care Team | Description | +--------+ + + + + | 09/21/ | Telephone | [facility] | Reji Mederos | Other (lab orders) | | 2017 | | PHYSIATRY [address] | | | | | [place], | [place] | | | | | [place] [address] | [address] | | | | | [phone] | | | +--------+ + + + [...] 2020 | Visit | | [address] [facility] | | | | | | [address] [place] | | | | | | [address] | | | | | | | | +--------+---------+ + + + documented as of this encounter Visit Diagnoses Not on filedocumented in this encounter
--- OUTSIDE RECORDS SUMMARY | ~2019-02-03 | XMS | Encounter Summary ---
Demographics + + + | Address | [address] | | | [place] [address] | + + + | Home Phone | | + + + | Preferred Language | Unknown | + + + | Marital Status | | + + + | Tenriism Affiliation | 1041 | + + + [...] [place] | | | | | [address] | | + + + + + Care Team Providers + +------+ + | Care Career Education Teacher Name | Role | Phone | + +------+ + | Bartolome Frederick DO | PCP | | + +------+ + Encounter Details +--------+ + + + + | Date | Type | Department | Care Team | Description | +--------+ + + + + | 08/09/ | Orders Only | [facility] | Conversion | | | 2017 | | NEPHROLOGY [place] | Transaction, | | | | | [address] | Provider Unknown | | | | | [address] [place], [place] | | | | | | [address] | (Fax) | | | | | [phone] | | | +--------+ + + + [...] [facility] | | [address] [facility] | | | | | | [address] [place] | | | | | | [address] | | | | | | (Fax) | | +--------+---------+ + + + documented as of this encounter Procedures + +--------+ + + + | Procedure Name | Priori | Date/Time | Associated Diagnosis | Comments | | | ty | | | | + +--------+ + + + | EXTERNAL LAB: CBC | Routin | 08/09/2016 | | Results for this | | | e | 12:00 AM | | procedure are in the | | | | PDT | | results section. | + +--------+ + + + | URINALYSIS WITH | Routin | 08/09/2016 | | Results for this | | MICROSCOPIC IF | e | 12:00 AM | | procedure are in the | | INDICATED | | PDT | | results section. | + +--------+ + + + | PROTEIN/CREATININE | Routin | 08/09/2016 | | Results for this | | RATIO, URINE | e | 12:00 AM | | procedure are in the | | | | PDT | | results section. | + +--------+ + + + | B TYPE NATRIURETIC | Routin | 08/09/2016 | | Results for this | | PEPTIDE | e | 12:00 AM | | procedure are in the | | | | PDT | | results section. | + +--------+ + + + | MAGNESIUM | Routin | 08/09/2016 | | Results for this | | | e | 12:00 AM | | procedure are in the | | | | PDT | | results section. | + +--------+ + + + | RENAL FUNCTION PANEL | Routin | 08/09/2016 | | Results for this | | | e | 12:00 AM | | procedure are in the | | | | PDT | | results section. | + +--------+ + + + documented in this encounter Results Protein/Creatinine Ratio, Urine (08/09/2016 12:00 AM PDT) + + + + + + | Component | Value | Ref Range | Performed | Pathologist | | | | | At | Signature | + + + + + + | Protein/Cre | 629.2 (A) | 0 - 150 | EXTERNAL | | | at Ratio | | | LAB | | + + + + + + + + | Specimen | + + | Urine specimen | | (specimen) | + + + + + | Impressions | Performed At | + + + | PROTEIN, URINE 56 CREATININE, URINE 89 | EXTERNAL LAB | + + + + +---------+ + + | Performing | Address | City/State/Zipcode | Phone Number | | Organization | | | | + +---------+ + + | EXTERNAL LAB | | | | + +---------+ + + Urinalysis with Microscopic if Indicated (08/09/2016 12:00 AM PDT) + + + + + + | Component | Value | Ref Range | Performed | Pathologist | | | | | At | Signature | + + + + + + | Color | Light Yellow | | EXTERNAL | | | | | | LAB | | + + + + + + | Clarity | Clear | | EXTERNAL | | | | | | LAB | | + + + + + + | Spec Grav, | 1.009 | 1.005 - 1.030 | EXTERNAL | [...] + + + + | Total | Negative | | EXTERNAL | | | Protein | | | LAB | | + + + + + + | pH, Urine | 6 | 5 - 9 | EXTERNAL | | | | | | LAB | | + + + + + + | Blood, | Negative | | EXTERNAL | | | Urine | | | LAB | | + + + + + + | Ketones | Negative | | EXTERNAL | | | | [...] + +---------+ + + External Lab: CBC (08/09/2016 12:00 AM PDT) + + + + + + | Component | Value | Ref Range | Performed | Pathologist | | | | | At | Signature | + + + + + + | WBC | 11.2 (A) | 4.5 - 11.0 10 | EXTERNAL | | | | | | LAB | | + + + + + + | RED CELL | 4.22 (A) | 4.3 - 5.7 10 | EXTERNAL | | | COUNT | | | LAB | | + + + + + + | Hgb | 12.7 (A) | 13.5 - 18.0 | EXTERNAL | | | | | g/dL | LAB | | + + + + + + | Hematocrit, | 38.0 (A) | 41 - 50 % | EXTERNAL | | | POC | | | LAB | | + + + + + + | MCV | 90.0 | 81 - 99 fL | EXTERNAL [...] + + + + | Platelet | 249 | 140 - 440 K/ L | EXTERNAL | | | Count | | | LAB | | | Plasma | | | | | + + + + + + | RDW-CV | 13.3 | 10.5 - 15.0 % | EXTERNAL | | | | | | LAB | | + + + + + + | MPV | | fL | EXTERNAL | | | | | | LAB | | + + + + + + | Differentia | Auto | | EXTERNAL | | | l Type | | | LAB | | + + + + + + | % Segmented | 77.6 | 39 - 80 % | EXTERNAL | | | | | | LAB | | | Neutrophils | | | | | + + + + + + | % | 12.9 (A) | 24 - 44 % | EXTERNAL | | | Lymphocytes | | | LAB | | + + + + + + | % Monocytes | 6.2 | 0 - 12 % | EXTERNAL | | | | | | LAB | | + + + + + + | % | 2.8 | 0 - 6 % | EXTERNAL | | | Eosinophils | | | LAB | | + + + + + + | % Basophils | 0.5 | 0 - 2 % | EXTERNAL [...] | | | + +---------+ + + B Type Natriuretic Peptide (08/09/2016 12:00 AM PDT) + +-------+ + + + | Component | Value | Ref Range | Performed | Pathologist | | | | | At | Signature | + +-------+ + + + | BNP | 96 | 0 - 100 pg/mL | EXTERNAL | | | | [...] | | + +---------+ + + Magnesium (08/09/2016 12:00 AM PDT) + +-------+ + + + | Component | Value | Ref Range | Performed | Pathologist | | | | | At | Signature | + +-------+ + + + | Magnesium | 2.1 | 1.7 - 2.5 mg/dL | EXTERNAL [...] + +---------+ + + Renal Function Panel (08/09/2016 12:00 AM PDT) + + + + + [...] + + + + | BUN | 38 (A) | 6 - 23 mg/dL | EXTERNAL | | | | | | LAB | | + + + + + + | Creatinine | 1.46 (A) | 0.70 - 1.25 | EXTERNAL | | | | | mg/dL | LAB | | + + + + + + | PHOSPHORUS | | mg/dL | EXTERNAL | | | | | | LAB | | + + + + + + | Albumin | 4.0 | 3.5 - 5.0 | EXTERNAL | | | | | | LAB | | + + + + + + | Na | 136 | 132 - 143 | EXTERNAL | | | | | mmol/L | LAB | | + + + + + + | K | 4.8 | 3.6 - 5.1 | EXTERNAL | | | | | mmol/L | LAB | | + + + + + + | Cl | 103 | 95 - 112 mmol/L | EXTERNAL | | | | | | LAB | | + + + + + + | CO2 | 23 | 19 - 31 mmol/L | EXTERNAL | | | | | | LAB | | + + + + + + | Anion Gap | 14.8 | 7 - 21 mmol/L | EXTERNAL | | | | | | LAB | | + + + + + + | eGFR if not | | | EXTERNAL | | | | | | LAB | | | INDONESIAN | | | | | + + + + + + | Phosphorus, | 4.2 | 2.5 - 5.0 | EXTERNAL | | | Inorganic | | | LAB | | + + + + + + | BUN/Creatin | 26.0 | 6.0 - 28.6 | EXTERNAL | | | ine Ratio | | | LAB | | + + + + + + | Calcium | 8.9 | 8.4 - 10.2 | EXTERNAL | | | | | mg/dL | LAB | | + + + + + + | Estimated | 48 (A) | 60 mg/dL | EXTERNAL | [...]
--- OUTSIDE RECORDS SUMMARY | ~2019-02-03 | XMS | Encounter Summary ---
Demographics + + + | Address | [address] | | | [place] [address] | + + + | Home Phone | | + + + | Preferred Language | Unknown | + + + | Marital Status | | + + + | Oriental Orthodox Affiliation | CAT | + + + [...] Team Providers + +------+ + | Care Imaging Nurse Name | Role | Phone | + +------+ + | Bartolome Frederick DO | PCP | | + +------+ + Reason for Visit AUTH/CERT +--------+--------+ + + + + | Status | Reason | Specialty | Diagnoses / | Referred By | Referred To | | | | | Procedures | Contact | Contact | +--------+--------+ + + + + | | | | | | | +--------+--------+ + + + + Encounter Details +--------+ + + + + | Date | Type | Department | Care Team | Description | +--------+ + + + + | 11/06/ | Anesthesia | [facility] | Charisma Long, | | | 2019 | Event | OP LOC [address] | [place] | | | | | [place], [place] | [place] [address] | | | | | [address] | [place], [place] | | | | | | [address] | | | | | | | | +--------+ + + + + Anesthesia Record + + + + + | Procedure Name | Responsible | Anesthesia Start | Anesthesia Stop Time | | | Anesthesiologist | Time | | + + + + + | EXTREME LATERAL | Charisma Raymond MD Mercedes | 11/06/18 0754 | 11/06/18 1126 | | L2-L4 INTERBODY | | | | | FUSION/POSTEROLATERA | | | | | L L2-4 FUSION | | | | | STABILIZATION (N/A | | | | | Back) | | | | + + + + + +----+---+ + + | Da | T | Event | Comment | | te | i | | | | | m | | | | | e | | | +----+---+ + + | 10 | 0 | An Start | | | /0 | 7 | Data | | | 2/ | 2 | | | | 20 | 5 | | | | 19 | | | | +----+---+ + + | | 0 | Pt. Check | Prior to anesthesia start, pt. Identified, examined, chart | | | 7 | | reviewed, PARQ held, anesthetic plan made or approved by | | | 2 | | attending anesthesiologist. NPO status confirmed as appropriate | | | 5 | | for procedure Preoperative evaluation: unchanged | +----+---+ + + | | 0 | Eq Check | Anesthesia machine checked Equipment verified | | | 7 | | | | | 2 | | | | | 5 | | | +----+---+ + + | | 0 | An Start | | | | 7 | | | | | 5 | | | | | 4 | | | +----+---+ + + | | 0 | ETT | | | | 7 | | | | | 5 | | | | | 9 | | | +----+---+ + + | | 0 | Ready | | | | 8 | | | | | 0 | | | | | 0 | | | +----+---+ + + | | 0 | Abx | | | | 8 | Administere | | | | 0 | d | | | | 1 | | | +----+---+ + + | | 0 | Preprocedur | Pt ID confirmed, informed consent obtained, insertion site | | | 8 | e Checklist | marked, equipment available | | | 2 | | | | | 7 | | | +----+---+ + + | | 0 | Incision | | | | 8 | | | | | 2 | | | | | 9 | | | +----+---+ + + | | 0 | Quick Note | End XLIF portion | | | 9 | | | | | 4 | | | | | 4 | | | +----+---+ + + | | 1 | Quick Note | Start posterior portion | | | 0 | | | | | 1 | | | | | 7 | | | +----+---+ + + | | 1 | Surgery end | | | | 1 | | | | | 1 | | | | | 7 | | | +----+---+ + + | | 1 | An Extubate | Neuromuscular function Intact. Pharynx suctioned. Patient obeys | | | 1 | | commands. Adequate pulmonary mechanics. | | | 2 | | | | | 1 | | | +----+---+ + + | | 1 | an stop | | | | 1 | data | | | | 2 | | | | | 6 | | | +----+---+ + + | | 1 | Anesthesia | | | | 1 | End | | | | 2 | | | | | 6 | | | +----+---+ + + | | 1 | PACU Rpt | | | | 1 | Given | | | | 2 | | | | | 7 | | | +----+---+ + + | | 1 | Post-Op | | | | 3 | Page | | | | 0 | | | | | 3 | | | +----+---+ + + +------+ | Meds | +------+ + +---------+ | Name | Total | + +---------+ | midazolam 5mg/mL | 5 mg | + +---------+ | fentaNYL | 150 mcg | + +---------+ | lidocaine 2% | 4 mL | + +---------+ | propofol | 160 mg | + +---------+ | clindamycin (CLEOCIN) IV 600 mg | 900 mg | | IN D5W (RTU) | | + +---------+ | EPINEPHrine 0.1mg/mL | 50 mcg | + +---------+ | glycopyrrolate | 0.2 mg | + +---------+ | lactated ringers IV | 850 mL | + +---------+ + + | Name | + + | O2 FR Avance (Total Liters) | + + | N2O FR Avance (l/min) | + + | Air FR Avance (l/min) | + + | Insp Sevo | + + | Et Sevo | + + | EtN2O % | + + | Insp N2O % | + + + + | No blood administrations on file. | + + +--------+ + + + | Type | Details | Placement | Removal | +--------+ + + + | Incisi | 11/06/18; Dr. Durbin; Right; | 11/06/18 0000 by | | | on | Lateral; flank | Anastasiya Charles RN | | +--------+ + + + | Incisi | 11/06/18; Dr. Durbin; Midline; back | 11/06/18 0000 by | | | on | | Anastasiya Charles RN | | +--------+ + + + | Drain | 11/06/18; Dr. Durbin ; MARCOS; Right; | 11/06/18 0000 by | 11/07/18 0000 by | | | flank; 1; 11/07/18; Other | Anastasiya Charles RN | Nicole Alexandra RN | | | (Comment) (by resident) | | | +--------+ + + + | Periph | 11/06/18; 0650; Right; Forearm; | 11/06/18 0650 by | 11/09/18 1200 by Dj | | eral | 18 g; Positive; 11/09/18; 1200; | Lanie Riuz RN | TRINH Lowry | | IV | Discharge | | | +--------+ + + + | ETT | 11/06/18; 0759 (created via | 11/06/18 075 by | 11/06/181125 by | | | procedure documentation); 7.5; | Charisma Long MD | Charisma Long MD | | | Oral; Cuffed; 11/06/18; 1126 | | | +--------+ + + + documented in this encounter Social [...] 2019 | Visit | | [address] | | | | | | [facility] [address] | | | | | | [place] [address] | | | | | | [phone] | | | | | | | | +--------+---------+ + + + documented as of this encounter Procedures + +--------+ + + + | Procedure Name | Priori | Date/Time | Associated Diagnosis | Comments | | | ty | | | | + +--------+ + + + | ANE ETT | Routin | 11/06/2018 | | | | | e | 8:04 AM | | | | | | PDT | | | + +--------+ + + + +---+--------+ | | | | | Proced | | | ure | | | Note - | | | | | | Long | | | , Charisma | | | Hang, | | | MD - | | | | | 2018 | | | 8:04 | | | AM PDT | | | | | | AIRWAY | | | | | | MANAGE | | | MENT - | | | | | | ETTTim | | | e of | | | Placem | | | ent: | | | | | | 019 | | | 7:59 | | | AMIntu | | | bation | | | | | | Reason | | | : For | | | surgic | | | al | | | proced | | | urePos | | | itioni | | | ng: | | | Supine | | | Locati | | | on | | | Perfor | | | med:OR | | | | | | OXYGEN | | | ATIONP | | | atient | | | was | | | preoxy | | | genate | | | dGrade | | | : | | | Grade | | | 1 - | | | Ventil | | | ated | | | by | | | mask | | | Induct | | | ion:Ro | | | utine, | | | | | | withou | | | t | | | Cricoi | | | d | | | Pressu | | | reINTU | | | BATION | | | ATTEMP | | | T | | | 1Video | | | laryng | | | oscopy | | | : | | | Glides | | | copeIn | | | tubati | | | on | | | Adjunc | | | ts: w/ | | | | | | Stylet | | | Laryng | | | oscopi | | | c | | | View: | | | Grade | | | IETT | | | DETAIL | | | SETT | | | Type:S | | | tandar | | | d, | | | Hi-Lo | | | Cuffed | | | Intuba | | | tion | | | Type: | | | OralCu | | | ff | | | Status | | | : | | | Cuffed | | | Size: | | | 7.5ETT | | | | | | secure | | | d with | | | | | | adhesi | | | ve | | | tapeDe | | | pth at | | | Lip: | | | 23 cm | | | Airway | | | Leak: | | | | | | NoCONF | | | IRMATI | | | ONNumb | | | er of | | | Attemp | | | ts: | | | 1Atrau | | | matic | | | placem | | | entPos | | | itive | | | for | | | EtCO2: | | | Wavefo | | | rm | | | capnog | | | raphyB | | | reath | | | Sounds | | | : | | | Bilate | | | ral | | | and | | | equalN | | | ARRATI | | | VEAtte | | | nding | | | was | | | physic | | | ally | | | presen | | | t for | | | the | | | critic | | | al | | | portio | | | ns of | | | the | | | proced | | | ure as | | | | | | descri | | | bed in | | | the | | | proced | | | ure | | | noteAt | | | tendin | | | g/Auth | | | orizin | | | g | | | Provid | | | er: | | | Charisma | | | Hang | | | Long | | | , | | | MDPerf | | | orming | | | | | | Provid | | | er: | | | Charisma | | | Hang | | | Long | | | , MD | +---+--------+ documented in this encounter Visit Diagnoses Not on filedocumented in this encounter Administered Medications + +--------+ +--------+------+------+ | Medication Order | MAR | Action | Dose | Rate | Site | | | Action | Date | | | | + +--------+ +--------+------+------+ | clindamycin (CLEOCIN) IV 600 | Given | 11/07/19 | 900 mg | | | | mg IN D5W (RTU) 600 mg, | | 19 8:01 | | | | | intravenous, PREPROCEDURE ONCE, 1 | | AM PDT | | | | | dose, Starting Sun11/06/18 at | | | | | | | 0613, Until Sun11/06/18 at 0801 | | | | | | + +--------+ +--------+------+------+ +---+---+ | | | +---+---+ + +-------+ +--------+---+---+ | EPINEPHrine injection | Given | 11/07/19 | 50 mcg | | | | INTRAPROCEDURE PRN, Starting Sun | | 19 8:32 | | | | | 11/06/18 at 0832, Until Wed | | AM PDT | | | | | 11/06/18 at 1126 | | | | | | + +-------+ +--------+---+---+ +---+---+ | | | +---+---+ + +-------+ +--------+---+---+ | fentaNYL (SUBLIMAZE) injection | Given | 11/07/19 | 50 mcg | | | | intravenous, INTRAPROCEDURE PRN, | | 19 8:34 | | | | | Starting Sun11/06/18 at 0758, | | AM PDT | | | | | Until Sun11/06/18 at 1126 | | | | | | + +-------+ +--------+---+---+ +-------+ +---------+---+---+ | Given | 11/07/19 | 100 mcg | | | | | 19 7:58 | | | | | | AM PDT | | | | +-------+ +---------+---+---+ +---+---+ | | | +---+---+ + +-------+ +--------+---+---+ | glycopyrrolate (KIMI) | Given | 11/07/19 | 0.2 mg | | | | injection INTRAPROCEDURE PRN, | | 19 8:59 | | | | | Starting Sun11/06/18 at 0859, | | AM PDT | | | | | Until Sun11/06/18 at 1126 | | | | | | + +-------+ +--------+---+---+ +---+---+ | | | +---+---+ + +---------+ + + +---+ | lactated ringers IV 10 mL/hr, | New Bag | 11/07/19 | 10 mL/hr | 10 mL/hr | | | intravenous, PROCEDURE | | 19 12:26 | | | | | CONTINUOUS, Starting Sun11/06/18 | | PM PDT | | | | | at 0615, Until Sun11/06/18 at | | | | | | | 1326 | | | | | | + +---------+ + + +---+ + + +---+---+---+ | given by anesthesiology | 11/07/19 | | | | | | 19 11:26 | | | | | | AM PDT | | | | + + +---+---+---+ | New Bag | 11/07/19 | | | | | | 19 7:54 | | | | | | AM PDT | | | | + + +---+---+---+ +---+---+ | | | +---+---+ + +-------+ +------+---+---+ | lidocaine (XYLOCAINE) 20 mg/mL | Given | 11/07/19 | 4 mL | | | | (2 %) injection INTRAPROCEDURE | | 19 7:58 | | | | | PRN, Starting 11/06/18 at | | AM PDT | | | | | 0758, Until Sun11/06/18 at 1126 | | | | | | + +-------+ +------+---+---+ +---+---+ | | | +---+---+ + +-------+ +------+---+---+ | midazolam (PF) (VERSED) | Given | 11/07/19 | 2 mg | | | | injection intravenous, | | 19 7:57 | | | | | INTRAPROCEDURE PRN, Starting Wed | | AM PDT | | | | | 11/06/18 at 0754, Until Wed | | | | | | | 11/06/18 at 1126 | | | | | | + +-------+ +------+---+---+ +-------+ +------+---+---+ | Given | 11/07/19 | 3 mg | | | | | 19 7:54 | | | | | | AM PDT | | | | +-------+ +------+---+---+ +---+---+ | | | +---+---+ + +-------+ +--------+---+---+ | propofol (DIPRIVAN) injection | Given | 11/07/19 | 160 mg | | | | intravenous, INTRAPROCEDURE PRN, | | 19 7:58 | | | | | Starting 11/06/18 at 0758, | | AM PDT | | | | | Until 11/06/18 at 1126 | | | | | | + +-------+ +--------+---+---+ +---+---+ | | | +---+---+ documented in this encounter"
--- OUTSIDE RECORDS SUMMARY | ~2019-02-03 | XMS | Encounter Summary ---
Demographics + + + | Address | [address] | | | [place] [address] | + + + | Home Phone | | + + + | Preferred Language | Unknown | + + + | Marital Status | | + + + | Hinduism Affiliation | 1041 | + + + | Race | Unknown | + + + | Ethnic Group | Unknown | + + + Author + + + | Author | [facility] | | | and [place] | + + + | Organization | [facility] | | | [...] [place] | | | | | [address] | | + + + + + Care Team Providers + +------+ + | Care Sales Merchandiser Name | Role | Phone | + +------+ + | Bartolome Frederick DO | PCP | | + +------+ + Reason for Visit + + + | Reason | Comments | + + + | Head Pain | Right side, x4days | + + + Encounter Details +--------+---------+ + + + | Date | Type | Department | Care Team | Description | +--------+---------+ + + + | 04/25/ | Office | [facility] | Bartolome Frederick | Nonintractable | | 2019 | Visit | [facility] | E, DO [address] | headache, | | | | [facility] [address] | [place], [place] | unspecified | | | [address] [place], | [address] | chronicity pattern, | | | | [place] [address] | [phone] | unspecified headache | | | | [phone] | | type (Primary Dx) | +--------+---------+ + + + Social History + +--------+ +--------+ + | Tobacco Use | Types | Packs/Day | Years | Date | | | | | Used | | + +--------+ +--------+ + | Former Smoker | Cigars | | | Started: 03/03/2018 | + +--------+ +--------+ + + +-------+---+---+ | Smokeless Tobacco: | Snuff | | | | Current User | | | | + +-------+---+---+ + + | Tobacco Cessation: Ready to Quit: Yes; Counseling Given: Yes | | Comments: 2 "cigarillos"/day | + + + + +---------+ + | Alcohol Use | Drinks/Week | oz/Week | Comments | + + +---------+ + | Yes | 7 Standard drinks | 7.0 | | | | or equivalent | | | + + +---------+ + [...] + + + | Blood Pressure | 118/68 | 04/25/2018 10:02 AM | | | | | PDT | | + + + + + | Pulse | 84 | 04/25/2018 10:02 AM | | | | | PDT | | + + + + + | Temperature | 36.7 C (98 F) | 04/25/2018 10:02 AM | | | | | PDT | | + + + + + | Respiratory Rate | 18 | 04/25/2018 10:02 AM | | | | | PDT | | + + + + + | Oxygen Saturation | 96% | 04/25/2018 10:02 AM | | | | | PDT | | + + + + + | Inhaled Oxygen | - | - | | | Concentration | | | | + + + + + | Weight | 98 kg (216 lb) | 04/25/2018 10:02 AM | | | | | PDT | | + + + + + | Height | 177.8 cm (5' 10") | 04/25/2018 10:02 AM | | | | | PDT | | + + + + + | Body Mass Index | 30.99 | 04/25/2018 10:02 AM | | | | | PDT | | + + + + + documented in this encounter Progress Notes Bartolome Frederick, DO - 04/25/2018 10:00 AM PDT Patient ID: Lupillo De La Paz is a 68 y.o. year old male Chief Complaint Patient presents with Head Pain Right side, x4days Assessment: Nonintractable headache, unspecified chronicity pattern, unspecified headache type (Primary ) Plan: -Reassurance that I am not worried, he is improving daily. -Call if any symptoms get worse. Subjective: MICAH Marrufo presents to the clinic today with head pain on right side lasting 4 days. Sunday he started getting pain right above his right ear. The pain was sharp, and happening every 30 seconds. Now the pain has migrated up. He has had this before but had went away. Ally grace is not doing anything for the pain. He can lightly touch with out pain. The pain is on the inside. If he pushes around he can replicate the pain. Today the pain is a little better. Ally grace had a brain CT in 2014 but not associated with this pain. He is more the 50% better then d ay one of this head pain. He is going to [facility] May 16, 2018 to check out his back. The doctor that do es back injections stated he wont touch him while being on Coumadin. He will have to be brid ged for back surgery. He is ready to have his back explored. His back went out 2 weeks, and was not even able to get out of the chair. When his back goes out it can take up to 5 days b efore he is better. He has to take his Gabapentin or else he can not sit still, more much wi thout pain radiating down his legs. Current Outpatient Prescriptions Medication Sig Dispense Refill Ascorbic Acid (VITAMIN C) 500 MG CAPS Take 500 mg by mouth. atorvaSTATin (LIPITOR) 40 mg tablet Take 40 mg by mouth nightly. baclofen (LIORESAL) 20 mg tablet Take 20 mg by mouth 3 times daily. CALCIUM/MAGNESIUM/ZINC FORMULA PO Take 1,000 mg by mouth. ferrous sulfate 324 (65 Fe) MG EC tablet Take by mouth nightly. gabapentin (NEURONTIN) 600 MG tablet Take 1 tablet by mouth 3 times daily. 90 tablet 2 losartan (COZAAR) 100 MG tablet Take 100 mg by mouth Daily. pantoprazole (PROTONIX) 40 mg tablet Take 1 tablet by mouth 2 times daily (before meals ). 120 tablet 2 rOPINIRole (REQUIP) 4 mg tablet Take 4 mg by mouth nightly. spironolactone (ALDACTONE) 25 mg tablet Take 25 mg by mouth. tamsulosin (FLOMAX) 0.4 mg CAPS Take 0.4 mg by mouth Daily. temazepam (RESTORIL) 30 MG capsule Take 30 mg by mouth nightly. verapamil (CALAN SR) 180 mg SR tablet Take 180 mg by mouth nightly. warfarin (COUMADIN) 5 mg tablet Take 5 mg by mouth Daily. 2.5mg Sunday and Sunday. R emainder of days is 5mg No current facility-administered medications for this visit. Review of Systems Musculoskeletal: Positive for back pain. Right sided head pain, under the skin, getting better since day one 4 days ago. Objective: Vitals: BP 118/68 | Pulse 84 | Temp 36.7 C (98 F) (Temporal) | Resp 18 | Ht 1.778 m (5' 10" ) | Wt 98 kg (216 lb) | SpO2 96% | BMI 30.99 kg/m Physical Exam Constitutional: He appears well-developed and well-nourished. HENT: Right Ear: Hearing, tympanic membrane, external ear and ear canal normal. Left Ear: Hearing, tympanic membrane, external ear and ear canal normal. Right periatrial region and right temporal region exam unremarkable. No skin lesions. Eyes: Pupils are equal, round, and reactive to light. EOM are normal. Cardiovascular: Normal rate, regular rhythm and normal heart sounds. Pulmonary/Chest: Effort normal and breath sounds normal. Neurological: He is alert. Psychiatric: He has a normal mood and affect. Entered by Omid Sanches CMSP, acting as scribe for [place] Daniel Frederick [...] 2019 | Visit | | [address] [facility] | | | | | | [address] [place], [place] | | | | | | [address] | | | | | | | | +--------+---------+ + + + documented as of this encounter Visit Diagnoses + + | Diagnosis | + + | Nonintractable headache, unspecified chronicity pattern, unspecified headache type - | | Primary | + + documented in this encounter
--- OUTSIDE RECORDS SUMMARY | ~2019-02-03 | XMS | Encounter Summary ---
Demographics + + + | Address | [address] | | | [place] [address] | + + + | Home Phone | | + + + | Preferred Language | Unknown | + + + | Marital Status | | + + + | Taoism Affiliation | CAT | + + + [...] Team Providers + +------+ + | Care Dish Carrier Name | Role | Phone | + +------+ + PCP | Unavailable | + +------+ + Encounter Details +--------+ + + + + | Date | Type | Department | Care Team | Description | +--------+ + + + + | 07/03/ | Inpatient | | Report, Inpatient | InPt Prog Notes | | 2002 | Progress | | Consultation | | | | Notes-Trans | | | | | | cribed | | | | +--------+ + + [...] as of this encounter Progress Notes Interface, Aluminum Welder In - 08/25/2005 1:[address] [facility] INPATIENT CONSULTATION REPORT [id number] [place], [place] [address] or REFERRED FROM AND FAXED TO: Galo Kulkarni M.D. Division of Cardiology Fax to [id number] REFERRED TO: Aminata Barrera M.D. PATIENT: Lupillo De La Paz MR#: [id number] DATE OF CONSULTATION: July 03, 2002 CHIEF COMPLAINT: Fevers and aching muscles and joints. HISTORY OF PRESENT ILLNESS: The patient is a 52-year-old gentleman from [facility], referred from a hospital in [place], [place] with positive blood cultures for Enterococcus faecalis. The patient's illness began approximately three months ago when he noted the onset of migrating arthralgias and generalized myalgias. He was also noted to be febrile at that time and on several occasions throughout the course of his illness. The patient was eventually referred to a airline security representative by his primary care provider, who undertook a lengthy diagnostic evaluation for collagen vascular disease. None of these studies were positive. The patient also had a temporal artery biopsy to rule out polymyalgia rheumatica. This biopsy was negative. At one point, there was a transient loss of vision in the right eye. 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 However, subsequently, an abdominal CT scan revealed lesions that appeared to be splenic infarcts. Blood cultures were obtained on June 16, 2002, which were positive for the group D Streptococcus, which was sensitive to penicillin, ampicillin and vancomycin. An echocardiogram was obtained shortly thereafter and revealed a vegetation on the mitral valve. A subsequent echocardiogram revealed an increase in size of the mitral vegetation despite reasonable antimicrobial therapy. From June 24 to July 02, 2002, the patient remained febrile with persistent leukocytosis while on vancomycin 1 gm every 12 hours and gentamicin 140 mg every 12 hours. Subsequently, the patient had a bout of acute abdominal and flank pain, which was caused by a left renal infarct, which was noted on a CT scan. The patient is now here at [facility] for further antimicrobial therapy and for consideration of possible mitral valve replacement. REVIEW OF SYSTEMS: Unremarkable except as noted in the HPI. No other systems positive. PAST MEDICAL HISTORY: 1. Appendectomy in 1964. 2. Bilateral knee replacements in 1998 and 1999. 3. Migraine headaches. FAMILY HISTORY: Noncontributory. SOCIAL HISTORY: The patient is from [facility], and he is . He has been employed by the [employer] for most of his life, and he is eager to return to work. MEDICATIONS: 1. Fiorinal. 2. The last vestiges of prednisone, which has been gradually tapered down to a level of 3 mg per day. ALLERGIES: The patient has a history of a presumed accelerated reaction to a PENICILLIN injection and was told never to receive the medication again. PHYSICAL EXAMINATION: GENERAL: The patient is a very pleasant, middle-aged gentleman in no acute distress. He is oriented times three. VITAL SIGNS: Temperature 38.7, pulse 120, blood pressure 120/70, respirations 16. HEENT: PERRLA with EOMs intact. There is no scleral icterus, although the conjunctivae are pale. There are no subconjunctival hemorrhages. NECK: Supple with full range of motion. CHEST: Clear to auscultation and percussion. HEART: Regular rate and rhythm with a 1/6 systolic ejection murmur along the left sternal border. There are no diastolic murmurs, no rubs and no gallops. ABDOMEN: Slightly obese with normal bowel tones. The liver and spleen are not palpable. There are no masses. No tenderness or rebound tenderness. EXTREMITIES: There are several small splinter hemorrhages subungually on the fourth and fifth fingers of the left hand and the third and fourth fingers of the right hand. There is a resolving Janeway lesion on the plantar surface of the right foot. NEUROLOGIC: Entirely within normal limits. LABORATORY STUDIES: Noteworthy for a serum creatinine of 1.7 and a white blood count of 18.7. Hemoglobin 9.2. Cardiac echo pending. 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 There are actually 12 positive blood cultures, once they were obtained, that were positive. Ordinarily, we would treat this infection given the sensitive enterococcus with 12 gm a day of ampicillin plus 1.0 mg/kg of an aminoglycoside such as gentamycin or tobramycin every eight hours. Unfortunately, the patient's penicillin allergy, which sounds like an accelerated reaction, precludes therapy with a penicillin. Therefore, he is on vancomycin and gentamycin, which unfortunately, can be a rather toxic regimen, particularly with regard to azotemia. In fact, the patient's creatinine has elevated already to 1.7. We were unable to locate any penicillin skin testing reagents (the so-called minor determinate mixture or MDM) on the [facility] campus. This privative reagent is an excellent predictor of accelerated penicillin reactions. If it would be positive, would justify desensitization. We are awaiting the opinion of the cardiac surgeons concerning valve replacement. The fact that the vegetation has enlarged on the antimicrobial regimen is somewhat worrisome. The peripheral embolic lesions do not necessarily indicate a failure of the antimicrobial regimen, however. We will await their opinion as to whether the patient should be taken to surgery. If so, then we would continue the course with vancomycin and gentamicin, trying not to produce any further renal insufficiency. Therefore, the current regimen of vancomycin 1 gm q.12h. with trough levels in the 15-20 range and a dose of gentamicin of 0.75 q.12h. given for synergistic purposes would be appropriate at this time. Aminata Barrera M.D. [id number] signed by Michelle, Aluminum Welder In at 08/25/2005 1:07 AM [facility] umented in this encounter Plan of Treatment +--------+---------+ + + + | Date | Type | Specialty | Care Team | Description | +--------+---------+ + + + | 04/30/ | Office | Neurological Surgery | Michael Durbin MD | | | 2020 | Visit | | [address] | | | | | | [facility] [address] | | | | | | [place] [address] | | | | | | [phone] | | | | | | | | +--------+---------+ + + + documented as of this encounter Visit Diagnoses Not on filedocumented in this encounter"
--- OUTSIDE RECORDS SUMMARY | ~2019-02-03 | XMS | Encounter Summary ---
Demographics + + + | Address | [address] | | | [place] [address] | + + + | Home Phone | | + + + | Preferred Language | Unknown | + + + | Marital Status | | + + + | Advent Affiliation | 1041 | + + + | Race | Unknown | + + + | Ethnic Group | Unknown | + + + Author + + + | Author | [facility] | | | and [place] | + + + | Organization | [facility] | | | and [place] | + + + | Address | Unknown | + + + | Phone | Unavailable | + + + Support + + + + + | Name | Relationship | Address | Phone | + + + + + | Ai De La Paz | ECON | [address] | | | | | [address] [place] | | | | | [address] | | + + + + + Care Team Providers + +------+ + | Care Lawyer Probate Name | Role | Phone | + +------+ + PCP | Unavailable | + +------+ + Encounter Details +--------+ + + + + | Date | Type | Department | Care Team | Description | +--------+ + + + + | 03// | Hospital | [facility] | Onel Beth, | GIANT CELL ARTERITIS | | 2002 | Encounter | CONVERSION DEP [address] | [address] | ([facility]) | | | | [address] | [address] [place], [place] | | | | | [place], [place] | [address] | | | | | [address] | | | | | | [phone] | | | +--------+ + + + [...] 2019 | Visit | | [address] [facility] | | | | | | [address] [place], [place] | | | | | | [address] | | | | | | | | +--------+---------+ + + + documented as of this encounter Visit Diagnoses + + | Diagnosis | + + | Giant cell arteritis (HCC) Giant cell arteritis | + + documented in this encounter"
--- OUTSIDE RECORDS SUMMARY | ~2019-02-03 | XMS | Encounter Summary ---
Demographics + + + | Address | [address] | | | [place] [address] | + + + | Home Phone | | + + + | Preferred Language | Unknown | + + + | Marital Status | | + + + | Evangelical Affiliation | 1041 | + + + [...] [place] | | | | | [address] | | + + + + + Care Team Providers + +------+ + | Care Program Coordinator Name | Role | Phone | + +------+ + | Bartolome Frederick DO | PCP | | + +------+ + Encounter Details +--------+ + + + + | Date | Type | Department | Care Team | Description | +--------+ + + + + | 10/23/ | Orders Only | [facility] | Conversion | | | 2017 | | NEPHROLOGY [place] | Transaction, | | | | | [address] | Provider Unknown | | | | | [address] [place], [place] | | | | | | [address] | (Fax) | | | | | [phone] | | | +--------+ + + + [...] Visit | | [address] [facility] | | | | | | [address] [place] | | | | | | [address] | | | | | | (Fax) | | +--------+---------+ + + + documented as of this encounter Procedures + +--------+ + + + | Procedure Name | Priori | Date/Time | Associated Diagnosis | Comments | | | ty | | | | + +--------+ + + + | BASIC METABOLIC | Routin | 10/23/2016 | | Results for this | | PANEL | e | 8:58 AM | | procedure are in the | | | | PDT | | results section. | + +--------+ + + + documented in this encounter Results Basic Metabolic Panel (10/23/2016 8:58 AM PDT) + + + + + + | Component | Value | Ref Range | Performed | Pathologist | | | | | At | Signature | + + + + + + | Glucose, | 100 | 70 - 100 mg/dL | EXTERNAL | | | Fasting | | | LAB | | + + + + + + | BUN | 46 (A) | 6 - 23 mg/dL | EXTERNAL | | | | | | LAB | | + + + + + + | Creatinine | 1.50 (A) | 0.70 - 1.25 | EXTERNAL | | | | | mg/dL | LAB | | + + + + + + | BUN/Creatin | 30.7 (A) | 6.0 - 28.6 | EXTERNAL | | | ine Ratio | | | LAB | | + + + + + + | Calcium | 9.4 | 8.4 - 10.2 | EXTERNAL | | | | | mg/dL | LAB | | + + + + + + | Na | 139 | 132 - 143 | EXTERNAL | | | | | mmol/L | LAB | | + + + + + + | K | 4.7 | 3.6 - 5.1 | EXTERNAL | | | | | mmol/L | LAB | | + + + + + + | Cl | 108 | 95 - 112 mmol/L | EXTERNAL | | | | | | LAB | | + + + + + + | CO2 | 23 | 19 - 31 mmol/L | EXTERNAL | | | | | | LAB | | + + + + + + | Anion Gap | 12.7 | 7 - 21 mmol/L | EXTERNAL | | | | | | LAB | | + + + + + + | Estimated | 47 | mg/dL | EXTERNAL | | | [...]
--- OUTSIDE RECORDS SUMMARY | ~2019-02-03 | XMS | Encounter Summary ---
Demographics + + + | Address | [address] | | | [place] [address] | + + + | Home Phone | | + + + | Preferred Language | Unknown | + + + | Marital Status | | + + + | Denominational Affiliation | CAT | + + + [...] Team Providers + +------+ + | Care Printer'S Assistant Name | Role | Phone | [...] MD Ríos | | | | | [place], [place] | [place] [address] | | | | | [address] | [place], [place] | | | | | | [address] | | | | | | | [...] 18 g; Positive; 11/09/18; 1200; | Lanie Ruiz RN | [facility] | | IV [...] 2019 | Visit | | [address] | | | | | | [facility] [address] | | | | | | [place] [address] | | | | | | [phone] | | | | | | | [...]
--- OUTSIDE RECORDS SUMMARY | ~2019-02-03 | XMS | Encounter Summary ---
Demographics + + + | Address | [address] | | | [place] [address] | + + + | Home Phone | | + + + | Preferred Language | Unknown | + + + | Marital Status | | + + + | Worship Affiliation | 1041 | + + + | Race | Unknown | + + + | Ethnic Group | Unknown | + + + Author + + + | Author | [facility] | | | and [place] | + + + | Organization | [facility] | | | [...] [place] | | | | | [address] | | + + + + + Care Team Providers + +------+ + | Care Electronic Health Records Specialist Name | Role | Phone | + +------+ + | Bartolome Frederick DO | PCP | | + +------+ + Encounter Details +--------+ + + + + | Date | Type | Department | Care Team | Description | +--------+ + + + + | 03/16/ | Orders Only | [facility] | Wesley Jennings, | | | 2018 | | CONVERSION 888 | [address] | | | | | [place] | [facility], | | | | | [place], [place] | [place] [address] | | | | | [address] | [phone] | | | | | [phone] | | | +--------+ + + + [...] 2020 | Visit | | [address] [facility] | | | | | | [address] [place] [address] | | | | | | [address] | | | | | | (Fax) | | +--------+---------+ + + + documented as of this encounter Procedures + +--------+ + + + | Procedure Name | Priori | Date/Time | Associated Diagnosis | Comments | | | ty | | | | + +--------+ + + + | ECHO INTERPRETATION | Routin | 03/16/2017 | | Results for this | | OF OUTSIDE FILMS | e | 10:45 AM | | procedure are in the | | | | PST | | results section. | + +--------+ + + + documented in this encounter Results ECHO Interpretation of Outside Films (03/16/2017 10:45 AM PST) + + | Specimen | + + | | + + + + + | Impressions | Performed At | + + + | 1. Overall left ventricular systolic function is normal with, an EF | | | between 60 - 65 %. 2. The right ventricle is normal in size and | | | function. 3. Mild aortic stenosis with peak/mean pressure gradient of | | | 15.27mmHg / 9.56mmHg, the aortic valve area by continuity equation is | | | 1.7cm (1.0 cm . by planimetry). 4. 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 Donald prosthetic valve, is well seated. Peak | | | transvalvular gradient 15.5 mm Hg, Mean gradient is 5.4 mmHg, | | | prosthetic MVA is 2.7 cm . | | + + + + + + | Narrative | Performed At | + + + | Patient Name: Lupillo De La Paz Date of : 1950 | | | Performing Physician: Wesley Jennings | | | | | | INDICATIONS pre-op exam, hx mv replacement w/ | | | mechanical CONCLUSIONS 1. Overall left ventricular | | | systolic function is normal with, an EF between 60 - 65 %. 2. The | | | right ventricle is normal in size and function. 3. Mild aortic | | | stenosis with peak/mean pressure gradient of 15.27mmHg / 9.56mmHg, the | | | aortic valve area by continuity equation is 1.7cm (1.0 | | | cm . by planimetry). 4. The mechanical MVR, known to be a 31 mm | | | St. Donald prosthetic valve, is well seated. Peak transvalvular gradient | | | 15.5 mm Hg, Mean gradient is 5.4 mmHg, prosthetic MVA is 2.7 | | | cm . FINDINGS -------- ECG rhythm: Sinus rhythm. Study: A | | | 2-dimensional transthoracic echocardiogram with m-mode, spectral and | | | color flow Doppler was perfomed. Study: This was a technically | | | adequate study. Left Ventricle: Overall left ventricular systolic | | | function is normal with, an EF between 60 - 65 %. Left Ventricle: The | | | left ventricle cavity size is normal. Left Ventricle: No regional | | | wall motion abnormalities. Left Ventricle: Mild septal hypertrophy. | | | Right Ventricle: The right ventricle is normal in size and function. | | | Left Atrium: The left atrium is mildly enlarged. Right Atrium: The | | | right atrium is mildly enlarged. Aortic Valve: Aortic valve is | | | trileaflet and is moderately thickened. Aortic Valve: The aortic | | | valve is moderately calcified. Aortic Valve: Trace amount of aortic | | | regurgitation. Aortic Valve: Mild aortic stenosis with peak/mean | | | pressure gradient of 15.27mmHg / 9.56mmHg, the aortic valve area by | | | continuity equation is 1.7cm (1.0 cm . by planimetry). | | | Aortic Valve: The maximum velocity across the aortic valve is 1.95m/s | | | Mitral Valve: No mitral regurgitation. Mitral Valve: The mechanical | | | MVR, known to be a [address] Donald prosthetic valve, is well seated. | | | Peak transvalvular gradient 15.5 mm Hg, Mean gradient is 5.4 mmHg, | | | prosthetic MVA is 2.7 cm . Tricuspid Valve: The tricuspid valve | | | appears structurally normal. Tricuspid Valve: Mild tricuspid | | | regurgitation is present. Tricuspid Valve: There is no evidence of | | | pulmonary hypertension. Tricuspid Valve: The right ventricular | | | systolic pressure (pulmonary artery systolic pressure), as measured by | | | Doppler, is 31.06mmHg. Pulmonic Valve: The pulmonic valve was not | | | well visualized. Pulmonic Valve: Trace pulmonic regurgitation. | | | Pericardium: There is no pericardial effusion. IVC/Hepatic Veins: The | | | inferior vena cava is normal in size and collapses > 50 % with sniff, | | | indicating normal central venous pressures. Aorta: The aortic root, | | | ascending aorta and aortic arch are normal. Mass: No mass visualized | | | Thrombus: No clot visualized Thrombus: No vegetation visualized. | | | Septum: No ASD observed. Septum: No VSD observed. MEASUREMENTS | | | Ao sinus: 3.81 cm LA Diam: 4.75 cm EDV(Teich): | | | 74.09 ml IVSd: 1.17 cm LVIDd: 4.09 cm LVPWd: 0.90 cm | | | LVOT Area: 3.89 cm2 LVOT Diam: 2.22 cm %FS: 27.99 % | | | EF(Teich): 54.66 % ESV(Teich): 33.58 ml LVIDs: 2.94 cm | | | SV(Teich): 40.50 ml RVIDd: 2.87 cm LVEF MOD A2C: 64.48 % | | | SV MOD A2C: 102.87 ml LVEF MOD A4C: 62.31 % SV MOD A4C: | | | 119.66 ml EF Biplane: 64.00 % LVEDV MOD BP: 181.23 ml LVESV | | | MOD BP: 65.24 ml LVEDV MOD A2C: 159.52 ml LVLd A2C: 9.36 cm | | | LVEDV MOD A4C: 192.02 ml LVLd A4C: 10.06 cm LVESV MOD A2C: | | | 56.64 ml LVLs A2C: 8.17 cm LVESV MOD A4C: 72.35 ml LVLs | | | A4C: 8.59 cm LAESV(A-L): 90.28 ml LAESV Index (A-L): 43.82 | | | ml/m2 LAAs A2C: 23.86 cm2 LAESV A-L A2C: 82.99 ml LALs A2C: | | | 5.82 cm LAAs A4C: 24.47 cm2 LAESV A-L A4C: 92.56 ml LALs | | | A4C: 5.49 cm RAAs: 16.50 cm2 RAESV A-L: 40.77 ml RAESV | | | MOD: 36.57 ml RALs: 5.67 cm TAPSE: 2.08 cm AV maxPG: | | | 15.26 mmHg AV meanP.55 mmHg AV Vmax: 1.95 m/s AV Vmean: | | | 1.47 m/s AV VTI: 47.76 cm KORTNEY Vmax: 1.50 cm2 KORTNEY (VTI): | | | 1.67 cm2 AVAI Vmax: 0.00 cm2/m2 AVAI (VTI): 0.00 cm2/m2 LVOT | | | maxP.28 mmHg LVOT meanP.34 mmHg LVSI Dopp: 38.86 | | | ml/m2 LVSV Dopp: 80.05 ml LVOT Vmax: 0.75 m/s LVOT Vmean: | | | 0.55 m/s LVOT VTI: 20.57 cm MV A Scott: 0.59 m/s MV DecT: | | | 232.99 ms MV E Scott: 1.69 m/s MV E/A Ratio: 2.86 MV PHT: | | | 67.56 ms MVA By PHT: 3.25 cm2 MV maxP.28 mmHg MV meanPG: | | | 5.11 mmHg MV Vmax: 1.82 m/s MV Vmean: 1.03 m/s MV VTI: | | | 49.82 cm MVA (VTI): 1.60 cm2 Septal e': 0.04 m/s Septal | | | E/e': 35.79 Lateral e': 0.05 m/s Lateral E/e': 29.82 RAP: | | | 5 mmHg RVSP: 31.06 mmHg TR maxP.06 mmHg TR Vmax: | | | 2.55 m/s Clerical Aide: Authenticated by: Wesley Jennings Report | | | Date/Time: 03-16-2017 12:55:10 | | + + + + --+ | Procedure Note | + --+ | Thony Jiménez Conversion - 09/26/2018 3:07 PM PDT Patient Name: Jovanny De La Paz of | | : 1950 Performing Physician: Wesley Coates | | Lehr INDICATIONS | | -pre-op exam, hx mv replacement w/ mechanical CONCLUSIONS 1. Overall left | | ventricular systolic function is normal with, an EF between 60 - 65 %.2. The right | | ventricle is normal in size and function.3. Mild aortic stenosis with peak/mean pressure | | gradient of 15.27mmHg / 9.56mmHg, the aortic valve area by continuity equation is | | 1.7cm (1.0 cm . by planimetry).4. 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 | | Donald prosthetic valve, is well seated. Peak transvalvular gradient 15.5 mm Hg, Mean | | gradient is 5.4 mmHg, prosthetic MVA is 2.7 cm . FINDINGS--------ECG rhythm: Sinus | | rhythm.Study: A 2-dimensional transthoracic echocardiogram with m-mode, spectral and | | color flow Doppler was perfomed.Study: This was a technically adequate study.Left | | Ventricle: Overall left ventricular systolic function is normal with, an EF between 60 - | | 65 %.Left Ventricle: The left ventricle cavity size is normal.Left Ventricle: No | | regional wall motion abnormalities.Left Ventricle: Mild septal hypertrophy.Right | | Ventricle: The right ventricle is normal in size and function.Left Atrium: The left | | atrium is mildly enlarged.Right Atrium: The right atrium is mildly enlarged.Aortic | | Valve: Aortic valve is trileaflet and is moderately thickened.Aortic Valve: The aortic | | valve is moderately calcified.Aortic Valve: Trace amount of aortic regurgitation.Aortic | | Valve: Mild aortic stenosis with peak/mean pressure gradient of 15.27mmHg / 9.56mmHg, | | the aortic valve area by continuity equation is 1.7cm (1.0 cm . by | | planimetry).Aortic Valve: The maximum velocity across the aortic valve is 1.95m/sMitral | | Valve: No mitral regurgitation.Mitral Valve: The mechanical MVR, known to be a [address] | | Donald prosthetic valve, is well seated. Peak transvalvular gradient 15.5 mm Hg, Mean | | gradient is 5.4 mmHg, prosthetic MVA is 2.7 cm .Tricuspid Valve: The tricuspid | | valve appears structurally normal.Tricuspid Valve: Mild tricuspid regurgitation is | | present.Tricuspid Valve: There is no evidence of pulmonary hypertension.Tricuspid Valve: | | The right ventricular systolic pressure (pulmonary artery systolic pressure), as | | measured by Doppler, is 31.06mmHg.Pulmonic Valve: The pulmonic valve was not well | | visualized.Pulmonic Valve: Trace pulmonic regurgitation.Pericardium: There is no | | pericardial effusion.IVC/Hepatic Veins: The inferior vena cava is normal in size and | | collapses > 50 % with sniff, indicating normal central venous pressures.Aorta: The | | aortic root, ascending aorta and aortic arch are normal.Mass: No mass | | visualizedThrombus: No clot visualizedThrombus: No vegetation visualized.Septum: No ASD | | observed.Septum: No VSD observed. MEASUREMENTS Ao sinus: 3.81 cmLA Diam: | | 4.75 cmEDV(Teich): 74.09 mlIVSd: 1.17 cmLVIDd: 4.09 cmLVPWd: 0.90 cmLVOT Area: | | 3.89 [id number] Diam: 2.22 cm%FS: 27.99 %EF(Teich): 54.66 %ESV(Teich): 33.58 | | mlLVIDs: 2.94 cmSV(Teich): 40.50 mlRVIDd: 2.87 cmLVEF MOD A2C: 64.48 %SV MOD | | A2C: 102.87 mlLVEF MOD A4C: 62.31 %SV MOD A4C: 119.66 mlEF Biplane: 64.00 %LVEDV | | MOD BP: 181.23 mlLVESV MOD BP: 65.24 mlLVEDV MOD A2C: 159.52 mlLVLd A2C: 9.36 | | cmLVEDV MOD A4C: 192.02 mlLVLd A4C: 10.06 cmLVESV MOD A2C: 56.64 mlLVLs A2C: | | 8.17 cmLVESV MOD A4C: 72.35 mlLVLs A4C: 8.59 cmLAESV(A-L): 90.28 mlLAESV Index | | (A-L): 43.82 ml/m2LAAs A2C: 23.86 [id number] A-L A2C: 82.99 mlLALs A2C: 5.82 | | cmLAAs A4C: 24.47 [id number] A-L A4C: 92.56 mlLALs A4C: 5.49 cmRAAs: 16.50 | | [id number] A-L: 40.77 mlRAESV MOD: 36.57 mlRALs: 5.67 cmTAPSE: 2.08 cmAV maxPG: | | 15.26 mmHgAV meanP.55 mmHgAV Vmax: 1.95 m/Rob Vmean: 1.47 m/Rob VTI: 47.76 | | cmAVA Vmax: 1.50 cm2AVA (VTI): 1.67 [id number] Vmax: 0.00 cm2/m2AVAI (VTI): 0.00 | | cm2/m2LVOT maxP.28 mmHgLVOT meanP.34 mmHgLVSI Dopp: 38.86 ml/m2LVSV Dopp: | | 80.05 mlLVOT Vmax: 0.75 m/sLVOT Vmean: 0.55 m/sLVOT VTI: 20.57 cmMV A Scott: | | 0.59 m/sMV DecT: 232.99 msMV E Scott: 1.69 m/sMV E/A Ratio: 2.86MV PHT: 67.56 | | msMVA By PHT: 3.25 cm2MV maxP.28 mmHgMV meanP.11 mmHgMV Vmax: 1.82 | | m/sMV Vmean: 1.03 m/sMV VTI: 49.82 cmMVA (VTI): 1.60 [id number] e': 0.04 | | m/sSeptal E/e': 35.79Lateral e': 0.05 m/sLateral E/e': 29.82RAP: 5 mmHgRVSP: | | 31.06 mmHgTR maxP.06 mmHgTR Vmax: 2.55 m/s Clerical Aide:Authenticated by: | | Wesley Ramey Date/Time: 03-16-2017 12:55:10 IMPRESSION: 1. Overall left | | ventricular systolic function is normal with, an EF between 60 - 65 %.2. The right | | ventricle is normal in size and function.3. Mild aortic stenosis with peak/mean pressure | | gradient of 15.27mmHg / 9.56mmHg, the aortic valve area by continuity equation is | | 1.7cm (1.0 cm . by planimetry).4. 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 | | Donald prosthetic valve, is well seated. Peak transvalvular gradient 15.5 mm Hg, Mean | | gradient is 5.4 mmHg, prosthetic MVA is 2.7 cm . | |LVOT Area: 3.89 cm2 | |LVOT Diam: 2.22 cm | |%FS: 27.99 % | |EF(Teich): 54.66 % | |ESV(Teich): 33.58 ml | |LVIDs: 2.94 cm | |SV(Teich): 40.50 ml | |RVIDd: 2.87 cm | |LVEF MOD A2C: 64.48 % | |SV MOD A2C: 102.87 ml | |LVEF MOD A4C: 62.31 % | |SV MOD A4C: 119.66 ml | |EF Biplane: 64.00 % | |LVEDV MOD BP: 181.23 ml | |LVESV MOD BP: 65.24 ml | |LVEDV MOD A2C: 159.52 ml | |LVLd A2C: 9.36 cm | |LVEDV MOD A4C: 192.02 ml | |LVLd A4C: 10.06 cm | |LVESV MOD A2C: 56.64 ml | |LVLs A2C: 8.17 cm | |LVESV MOD A4C: 72.35 ml | |LVLs A4C: 8.59 cm | |LAESV(A-L): 90.28 ml | |LAESV Index (A-L): 43.82 ml/m2 | |LAAs A2C: 23.86 cm2 | |LAESV A-L A2C: 82.99 ml | |LALs A2C: 5.82 cm | |LAAs A4C: 24.47 cm2 | |LAESV A-L A4C: 92.56 ml | |LALs A4C: 5.49 cm | |RAAs: 16.50 cm2 | |RAESV A-L: 40.77 ml | |RAESV MOD: 36.57 ml | |RALs: 5.67 cm | |TAPSE: 2.08 cm | |AV maxP.26 mmHg | |AV meanP.55 mmHg | |AV Vmax: 1.95 m/s | |AV Vmean: 1.47 m/s | |AV VTI: 47.76 cm | |KORTNEY Vmax: 1.50 cm2 | |KORTNEY (VTI): 1.67 cm2 | |AVAI Vmax: 0.00 cm2/m2 | |AVAI (VTI): 0.00 cm2/m2 | |LVOT maxP.28 mmHg | |LVOT meanP.34 mmHg | |LVSI Dopp: 38.86 ml/m2 | |LVSV Dopp: 80.05 ml | |LVOT Vmax: 0.75 m/s | |LVOT Vmean: 0.55 m/s | |LVOT VTI: 20.57 cm | |MV A Scott: 0.59 m/s | |MV DecT: 232.99 ms | |MV E Scott: 1.69 m/s | |MV E/A Ratio: 2.86 | |MV PHT: 67.56 ms | |MVA By PHT: 3.25 cm2 | |MV maxP.28 mmHg | |MV meanP.11 mmHg | |MV Vmax: 1.82 m/s | |MV Vmean: 1.03 m/s | |MV VTI: 49.82 cm | |MVA (VTI): 1.60 cm2 | |Septal e': 0.04 m/s | |Septal E/e': 35.79 | |Lateral e': 0.05 m/s | |Lateral E/e': 29.82 | |RAP: 5 mmHg | |RVSP: 31.06 mmHg | |TR maxP.06 mmHg | |TR Vmax: 2.55 m/s | | | |Clerical Aide: | |Authenticated by: Wesley Jennings | |Report Date/Time: 03-16-2017 12:55:10 | | | |IMPRESSION: | |1. Overall left ventricular systolic function is normal with, an EF between 60 - 65 %. | |2. The right ventricle is normal in size and function. | |3. Mild aortic stenosis with peak/mean pressure gradient of 15.27mmHg / 9.56mmHg, the aorti c valve area by continuity equation is 1.7cm (1.0 cm . by planimetry). | |4. 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 Donald prosthetic valve, is well seated. Peak transvalvular gradient 15.5 mm Hg, Mean gradient is 5.4 mmHg, prosthetic MVA is 2.7 cm . | + --+ documented in this encounter Visit Diagnoses Not on filedocumented in this encounter"
--- OUTSIDE RECORDS SUMMARY | ~2019-02-03 | XMS | Encounter Summary ---
Demographics + + + | Address | [address] | | | [place] [address] | + + + | Home Phone | | + + + | Preferred Language | Unknown | + + + | Marital Status | | + + + | Yarsanism Affiliation | 1041 | + + + | Race | Unknown | + + + | Ethnic Group | Unknown | + + + Author + + + | Author | [facility] | | | and [place] | + + + | Organization | [facility] | | | [...] [address] [address] | | | | | [address] | | + + + + + Care Team Providers + +------+ + | Care Restaurant Kitchen And Service Manager Name | Role | Phone | + +------+ + | Bartolome Frederick DO | PCP | | + +------+ + Reason for Visit + + + | Reason | Comments | + + + | Medication Related | Rx for inflamation in back | + + + Encounter Details +--------+ + + + + | Date | Type | Department | Care Team | Description | +--------+ + + + + | 06/27/ | Telephone | [facility] | Bartolome Frederick | Medication Related | | 2019 | | [facility] | E, DO [address] | (Rx for inflamation | | | | [facility] | [place], [place] | in back) | | [address] [place], | [address] | | | | | [place] [address] | [phone] | | | | | [phone] | | | +--------+ + + + [...] | Shots of liquor 0-1 | | [place]) | | | Standard drinks or | [...] 2020 | Visit | | [address] [facility] | | | | | | [address] | | | | | | [address] | | | | | | | | +--------+---------+ + + + documented as of this encounter Visit Diagnoses Not on filedocumented in this encounter"
--- OUTSIDE RECORDS SUMMARY | ~2019-02-03 | XMS | Encounter Summary ---
Demographics + + + | Address | [address] | | | [place] [address] | + + + | Home Phone [...] Team Providers + +------+ + | Care Grain Spouter Name | Role | Phone | + +------+ + PCP | Unavailable | + +------+ + Encounter Details +--------+ + + + + | Date | Type | Department | Care Team | Description | +--------+ + + + + | 04/10/ | Document-Sc | UNKNOWN DEPARTMENT | Modesto Ruiz | | | 2008 | anned | [address] [facility] | [phone] | | | | | [address] | | | | | | [place], [place] | | | | | | [address] | | | +--------+ + + + [...] [address] | | | | | | [place] [address] | | | | | | [phone] | | | | | | | | +--------+---------+ + + + documented as of this encounter Visit Diagnoses Not on filedocumented in this encounter"
--- OUTSIDE RECORDS SUMMARY | ~2019-02-03 | XMS | Encounter Summary ---
Demographics + + + | Address | [address] | | | [place] [address] | + + + | Home Phone [...] Team Providers + +------+ + | Care Cell Stripper Name | Role | Phone | + [...] | | [address] | [place] [address] | | | | | [address] | [phone] | | | | | [place], [place] | | | | | | [address] | | | | | | [phone] | | | +--------+ + + + [...] 04/30/ | Office | Neurological Surgery | Micahel Durbin MD | | | 2019 | Visit | | [address] | | | | | | [address] | | | | | | [place] [address] | | | | | | [phone] | | | | | | | | +--------+---------+ + + + documented as of this encounter Visit Diagnoses Not on filedocumented in this encounter"
--- OUTSIDE RECORDS SUMMARY | ~2019-02-03 | XMS | Encounter Summary ---
Demographics + + + | Address | [address] | | | [place] [address] | + + + | Home Phone | | + + + | Preferred Language | Unknown | + + + | Marital Status | | + + + | Taoist Affiliation | CAT | + + + [...] Team Providers + +------+ + | Care Letterset Press Set Up Operator Name | Role | Phone | [...] | | [address] | [place] [address] | thoracolumbar | | | | [address] | [phone] | region; Obstructive | | | | [place], [place] | | sleep apnea; History | | | | [address] | | of mitral valve | | | | [phone] | | replacement with | | | [...] i.e. Advil, Aleve, Ibuprofen), herbal supplements, and Dexter 3 Fish Oil 10 days prior to [...] Renal: renal failure Type: CKD GFR 30-59 Urology/Rad Technologist: Urologic Conditions: incontinence Endo: no Diabetes: Neuro/Psych: [...] by mouth once daily in the evening. Vuyuhic-Dykonxqns-Pjed oral tablet Take by mouth once daily. [...] implants, bridges or caps present missing teeth Dem[place] ition Comments: 1 RT UPPER MOLAR LEFT. [...] normal Temperature: Warm REVIEW/MANAGEMENT: ALL LABS FROM [facility] (SEE CARE EVERYWHERE TAB) CBC w/ [...] DIRBILI 0.1 07/04/2002 ECG 12 lead 10/10/2018 [facility] [place] [facility] Component Name Value Ref Range VENTRICULAR RATE [...] follows: ECHO Interpretation of Outside Films 09/19/2018 [facility] [place] [facility] Result Impression 1. Overall left ventricular systolic [...] without any CV sx. He saw his clipper and turner (Mikhail Jennings , [place], [place]) 2 weeks ago and was deemed optimized to proceed with planned surgery. He pratt d a TTE in September which confirmed nl mechanical mitral valve function (see above) with nataliya l LVEF 55%. AORTIC STENOSIS/REGURGITATION: Mild by last month's TTE. KORTNEY 1.6 cm2 Peak gradient 27 mm Hg. Asymptomatic. CHRONIC ANTICOAGULATION: On warfarin, managed remotely by [place] [facility] in [facility] ([phone]). Bridging (pre and post-op) is indicated in [...] to this patient's care. Giancarlo Solis MD [facility] [address] [place] [address] PREOPERATIVE ASS[facility]MENT CLINIC [address] [place] [id number] Rosalia Arango MA - 10/24/2018 11:00 AM KARELY have [...] Dental Issues: Missing teeth Rosalia Hanna MA [facility] [address] [place] [address] [address] [place] [address] documented in this en counter Plan of Treatment +--------+---------+ + + + | Date | Type | Specialty | Care Team | Description | +--------+---------+ + + + | 04/30/ | Office | Neurological Surgery | Albina Roberts MD | | | 2020 | Visit | | [address] | | | | | | [facility] [address] | | | | | | [place] [address] | | | | | | [phone] | | | | | | | [...] MISSY/DIAZ | [address] | [place] [address] | | | LAB | | | [...] BLOOD | [address] | [place] [address] | | | BANK | | | [...] BLOOD | [address] | [place] [address] | | | BANK | | | [...] | | [facility] | | | NAMIBIAN | | | | | + +---------+ [...] MISSY/DIAZ | [address] | [place] [address] | | | LAB | | | [...]
--- OUTSIDE RECORDS SUMMARY | ~2019-02-03 | XMS | Encounter Summary ---
Demographics + + + | Address | [address] | | | [place] [address] | + + + | Home Phone | | + + + | Preferred Language | Unknown | + + + | Marital Status | | + + + | Pentecostal Affiliation | 1041 | + + + [...] [place] | | | | | [address] | | + + + + + Care Team Providers + +------+ + | Care Chair Lift Operator Name | Role | Phone | + +------+ + | Bartolome Frederick DO | PCP | | + +------+ + Encounter Details +--------+ + + + + | Date | Type | Department | Care Team | Description | +--------+ + + + + | 05/03/ | Orders Only | [facility] | Ismael Young MD | | | 2017 | | NEPHROLOGY [place] | [address] [place] | | | | | [address] [place] | [address] [place], [place] | | | | | [address] [place], [place] | [address] | | | | | [address] | | | | | | [phone] | | | +--------+ + + + [...] 2020 | [facility] | | [facility] | | | | | | [address] [place] | | | | | | [address] | | | | | | | | +--------+---------+ + + + documented as of this encounter Procedures + +--------+ + + + | Procedure Name | Priori | Date/Time | Associated Diagnosis | Comments | | | ty | | | | + +--------+ + + + | EXTERNAL LAB: CBC | Routin | 06/07/2016 | | Results for this | | | e | 10:15 AM | | procedure are in the | | | | PDT | | results section. | + +--------+ + + + | URINALYSIS WITH | Routin | 06/07/2016 | | Results for this | | MICROSCOPIC IF | e | 10:15 AM | | procedure are in the | | INDICATED | | PDT | | results section. | + +--------+ + + + | PROTEIN/CREATININE | Routin | 06/07/2016 | | Results for this | | RATIO, URINE | e | 10:15 AM | | procedure are in the | | | | PDT | | results section. | + +--------+ + + + | URIC ACID | Routin | 06/07/2016 | | Results for this | | | e | 10:15 AM | | procedure are in the | | | | PDT | | results section. | + +--------+ + + + | MAGNESIUM | Routin | 06/07/2016 | | Results for this | | | e | 10:15 AM | | procedure are in the | | | | PDT | | results section. | + +--------+ + + + | BASIC METABOLIC | Routin | 06/07/2016 | | Results for this | | PANEL | e | 10:15 AM | | procedure are in the | | | | PDT | | results section. | + +--------+ + + + documented in this encounter Results Protein/Creatinine Ratio, Urine (06/07/2016 10:15 AM PDT) + + + + + + | Component | Value | Ref Range | Performed | Pathologist | | | | | At | Signature | + + + + + + | Protein/Cre | 2633.1 (A) | 0 - 150 | EXTERNAL [...] + + Urinalysis with Microscopic if Indicated (06/07/2016 10:15 AM PDT) + + + + + [...] + + + | Spec Grav, | 1.021 | 1.005 - 1.030 | EXTERNAL | [...] + + + + | Total | 500 | | EXTERNAL | | | Protein | | | LAB | | + + + + + + | pH, Urine | 7 | 5 - 9 | EXTERNAL | [...] + +---------+ + + External Lab: CBC (06/07/2016 10:15 AM PDT) + + + + + + | Component | Value | Ref Range | Performed | Pathologist | | | | | At | Signature | + + + + + + | WBC | 10.6 | 4.5 - 11.0 10 | EXTERNAL | | | | | | LAB | | + + + + + + | RED CELL | 4.29 (A) | 4.3 - 5.7 10 | EXTERNAL | | | COUNT | | | LAB | | + + + + + + | Hgb | 13.0 (A) | 13.5 - 18.0 | EXTERNAL | | | | | g/dL | LAB | | + + + + + + | Hematocrit, | 39.3 (A) | 41 - 50 % | EXTERNAL | | | POC | | | LAB | | + + + + + + | MCV | 91.7 | 81 - 99 fL | EXTERNAL [...] + + + + | Platelet | 239 | 140 - 440 K/ L | EXTERNAL | | | Count | | | LAB | | | Plasma | | | | | + + + + + + | RDW-CV | 14.0 | 10.5 - 15.0 % | EXTERNAL [...] | + +---------+ + + Uric Acid (06/07/2016 10:15 AM PDT) + +-------+ + + + | Component | Value | Ref Range | Performed | Pathologist | | | | | At | Signature | + +-------+ + + + | Uric Acid | 4.7 | 4.4 - 7.6 | EXTERNAL | [...] | | + +---------+ + + Magnesium (06/07/2016 10:15 AM PDT) + +-------+ + + + [...] | | | + +---------+ + + Basic Metabolic Panel (06/07/2016 10:15 AM PDT) + +---------+ + + + | Component | Value | Ref Range | Performed | Pathologist | | | | | At | Signature | + +---------+ + + + | Glucose, | 103 (A) | 70 - 100 mg/dL | EXTERNAL | | | Fasting | | | LAB | | + +---------+ + + + | BUN | 25 (A) | 6 - 23 mg/dL | EXTERNAL | | | | | | LAB | | + +---------+ + + + | Creatinine | 1.09 | 0.70 - 1.25 | EXTERNAL | | | | | mg/dL | LAB | | + +---------+ + + + | BUN/Creatin | 22.9 | 6.0 - 28.6 | EXTERNAL | | | ine Ratio | | | LAB | | + +---------+ + + + | Calcium | 9.3 | 8.4 - 10.2 | EXTERNAL | | | | | mg/dL | LAB | | + +---------+ + + + | Na | 142 | 132 - 143 | EXTERNAL | | | | | mmol/L | LAB | | + +---------+ + + + | K | 4.0 | 3.6 - 5.1 | EXTERNAL | | | | | mmol/L | LAB | | + +---------+ + + + | Cl | 109 | 95 - 112 mmol/L | EXTERNAL | | | | | | LAB | | + +---------+ + + + | CO2 | 23 | 19 - 31 mmol/L | EXTERNAL | | | | | | LAB | | + +---------+ + + + | Anion Gap | 14.0 | 7 - 21 mmol/L | EXTERNAL | | | | | | LAB | | + +---------+ + + + | Estimated | 68 | mg/dL | EXTERNAL | | | GFR | | | LAB | | + +---------+ + + [...]
--- OUTSIDE RECORDS SUMMARY | ~2019-02-03 | XMS | Encounter Summary ---
Demographics + + + | Address | [address] | | | [place] [address] | + + + | Home Phone | | + + + | Preferred Language | Unknown | + + + | Marital Status | | + + + | Restoration Affiliation | CAT | + + + [...] Team Providers + +------+ + | Care Drupal Developer Name | Role | Phone | + [...] | | | | REFERRAL | [place] [address] | | | | | | | Phone: | | | | | | | [phone] | | | | | | | Fax: | | | | | | | [phone] | | + +--------+ + + + [...] | | | | [address] | [place] [address] | disease; Lumbar | | | | [place], [place] | [phone] | spondylosis; | | | | [address] | | Spondylolisthesis of | | | | [phone] | | lumbar region; | | | [...] wait until he is back home in [place]. Watch for Headache , vomiting, weakness, numbness, [...] times daily as needed (muscl e spasms). Scqglep-Vahpjkkkl-Vwer oral tablet Take by mouth once daily. [...] 11/11/18 and then dose adjust per your guest relations manager No current facility-administered medications for this visit. [...] are identified. Vertebral body heights are maintained. Setl-rg-caqnqtpo spondylotic changes are again seen in the [...] wait until he is back home in [place]. Encouraged pt to watch for Headache, vomiting, [...] sooner should concerns arise. Jeimy Mera PA-C [facility] AT [address] [place] [address] [place] [address] [phone] Alida Galdamez MA - 01/30/2019 1:45 PM [...] [address] | | | | | | [place] [address] | | | | | | [phone] | | | | | | | [...]
--- OUTSIDE RECORDS SUMMARY | ~2019-02-03 | XMS | Encounter Summary ---
Demographics + + + | Address | [address] | | | [place] [address] | + + + | Home Phone | | + + + | Preferred Language | Unknown | + + + | Marital Status | | + + + | Congregational Affiliation | CAT | + + + [...] Team Providers + +------+ + | Care Bedspread Cutter Hand Name | Role | Phone | + +------+ + | Bartolome Frederick DO | PCP | | + +------+ + Encounter Details +--------+ + + + + | Date | Type | Department | Care Team | Description | +--------+ + + + + | 10/31/ | Document-Sc | [facility] | Michael Durbin MD | | | 2019 | anned | [facility] | [address] | | | | | [address] | [address] | | | | | [address] | [place] [address] | | | | | [place], [place] | [phone] | | | | | [address] | | | | | | [phone] | | | +--------+ + + + [...] | Visit | | [address] [facility] | | | | | | [place] [address] | | | | | | [place] [address] | | | | | | [phone] | | | | | | | | +--------+---------+ + + + documented as of this encounter Procedures + +--------+ + + + | Procedure Name | Priori | Date/Time | Associated Diagnosis | Comments | | | ty | | | | + +--------+ + + + | LAB REPORTS | | 10/30/2018 | | Results for this | | | | 12:00 AM | | procedure are in the | | | | PDT | | results section. | + +--------+ + + + documented in this encounter Results LAB REPORTS (10/30/2018 12:00 AM PDT) + + + | Narrative | Performed At | + + + | | | + + + documented in this encounter Visit Diagnoses Not on filedocumented in this encounter"
--- OUTSIDE RECORDS SUMMARY | ~2019-02-03 | XMS | Encounter Summary ---
Demographics + + + | Address | [address] | | | [place] [address] | + + + | Home Phone | | + + + | Preferred Language | Unknown | + + + | Marital Status | | + + + | Gnosticist Affiliation | 1041 | + + + | Race | Unknown | + + + | Ethnic Group | Unknown | + + + Author + + + | Author | [facility] | | | and [place] | + + + | Organization | [facility] | | | [...] [place] | | | | | [address] | | + + + + + Care Team Providers + +------+ + | Care Revenue Field Auditor Name | Role | Phone | + +------+ + | Bartolome Frederick DO | PCP | | + +------+ + Encounter Details +--------+ + + + + | Date | Type | Department | Care Team | Description | +--------+ + + + + | 10/16/ | Orders Only | [facility] | Conversion | | | 2017 | | NEPHROLOGY [place] | Transaction, | | | | | [address] [place] | Provider Unknown | | | | | [address] [place], [place] | | | | | | [address] | (Fax) | | | | | [phone] | | | +--------+ + + + [...] 2020 | Visit | | [facility] | | | | | | [address] [place] | | | | | | [address] | | | | | | (Fax) | | +--------+---------+ + + + documented as of this encounter Procedures + +--------+ + + + | Procedure Name | Priori | Date/Time | Associated Diagnosis | Comments | | | ty | | | | + +--------+ + + + | BASIC METABOLIC | Routin | 10/16/2016 | | Results for this | | PANEL | e | 8:48 AM | | procedure are in the | | | | PDT | | results section. | + +--------+ + + + documented in this encounter Results Basic Metabolic Panel (10/16/2016 8:48 AM PDT) + + + + + + | Component | Value | Ref Range | Performed | Pathologist | | | | | At | Signature | + + + + + + | Glucose, | 117 (A) | 70 - 100 mg/dL | EXTERNAL | | | Fasting | | | LAB | | + + + + + + | BUN | 39 (A) | 6 - 23 mg/dL | EXTERNAL | | | | | | LAB | | + + + + + + | Creatinine | 1.42 (A) | 0.70 - 1.25 | EXTERNAL | | | | | mg/dL | LAB | | + + + + + + | BUN/Creatin | 27.5 | 6.0 - 28.6 | EXTERNAL | | | ine Ratio | | | LAB | | + + + + + + | Calcium | 9.4 | 8.4 - 10.2 | EXTERNAL | | | | | mg/dL | LAB | | + + + + + + | Na | 138 | 132 - 143 | EXTERNAL | | | | | mmol/L | LAB | | + + + + + + | K | 4.7 | 3.6 - 5.1 | EXTERNAL | | | | | mmol/L | LAB | | + + + + + + | Cl | 107 | 95 - 112 mmol/L | EXTERNAL | | | | | | LAB | | + + + + + + | CO2 | 18 (A) | 19 - 31 mmol/L | EXTERNAL | | | | | | LAB | | + + + + + + | Anion Gap | 17.7 | 7 - 21 mmol/L | EXTERNAL [...]
--- OUTSIDE RECORDS SUMMARY | ~2019-02-03 | XMS | Encounter Summary ---
Demographics + + + | Address | [address] | | | [place] [address] | + + + | Home Phone | | + + + | Preferred Language | Unknown | + + + | Marital Status | | + + + | Restorationism Affiliation | 1041 | + + + | Race | Unknown | + + + | Ethnic Group | Unknown | + + + Author + + + | Author | [facility] | | | and [place] | + + + | Organization | [facility] | | [...] [place] | | | | | [address] | | + + + + + Care Team Providers + +------+ + | Care Farm Operations Technical Director Name | Role | Phone | + +------+ + | Bartolome Frederick DO | PCP | | + +------+ + Encounter Details +--------+ + + + + | Date | Type | Department | Care Team | Description | +--------+ + + + + | 10/16/ | Orders Only | [facility] | Conversion | | | 2017 | | NEPHROLOGY [place] | Transaction, | | | | | [address] [place] | Provider Unknown | | | | | [address] [place], [place] | | | | | | [address] | (Fax) | | | | | [phone] | | | +--------+ + + + [...] 2020 | Visit | | [facility] | | | | | | [address] [place] | | | | | | [address] | | | | | | (Fax) [...]
--- OUTSIDE RECORDS SUMMARY | ~2019-02-03 | XMS | Encounter Summary ---
Demographics + + + | Address | [address] | | | [place] [address] | + + + | Home Phone | | + + + | Preferred Language | Unknown | + + + | Marital Status | | + + + | Hinduism Affiliation | CAT | + + + [...] Team Providers + +------+ + | Care Industrial Recruiter Name | Role | Phone | + [...] | | | | [address] | [place] [address] | | | | | [place], [place] | [phone] | | | | | [address] | | | | | | [phone] | | | +--------+--------+ + + + [...] 2020 | Visit | | [address] | | | | | | [address] | | | | | | [place] [address] | | | | | | [phone] | | | | | | | | +--------+---------+ + + + documented as of this encounter Visit Diagnoses + + | Diagnosis | + + | S/P lumbar fusion Arthrodesis status | + + documented in this encounter"
--- OUTSIDE RECORDS SUMMARY | ~2019-02-03 | XMS | Encounter Summary ---
Demographics + + + | Address | [address] | | | [place] [address] | + + + | Home Phone | | + + + | Preferred Language | Unknown | + + + | Marital Status | | + + + | Voodoo Affiliation | CAT | + + + [...] Team Providers + +------+ + | Care Clinical Staff Educator Name | Role | Phone | + +------+ + | Bartolome Frederick DO | PCP | | + +------+ + Encounter Details +--------+ + + + + | Date | Type | Department | Care Team | Description | +--------+ + + + + | 11/28/ | Tool Specialist | [facility] | Michael Durbin MD | S/P lumbar fusion | | 2019 | | [facility] | [address] | (Primary Dx) | | | | [address] | [address] | | | | | [address] | [place] [address] | | | | | [place], [place] | [phone] | | | | | [address] | | | | | | [phone] | | | +--------+ + + + [...] [address] | | | | | | [place] [address] | | | | | | [phone] | | | | | | | | +--------+---------+ + + + documented as of this encounter Results X-RAY SPINE LUMBOSACRAL 2 [...] RADIOLOGY | [address] | [place] [address] | [phone] | | VOICE RECOGNITION | | | | + + + + + documented in this encounter Visit Diagnoses + + | Diagnosis | + + | S/P lumbar fusion - Primary Arthrodesis status | + + documented in this encounter"
--- OUTSIDE RECORDS SUMMARY | ~2019-02-03 | XMS | Encounter Summary ---
Demographics + + + | Address | [address] | | | [place] [address] | + + + | Home Phone | | + + + | Preferred Language | Unknown | + + + | Marital Status | | + + + | Jehovah'S Witness Affiliation | CAT | + + + [...] Team Providers + +------+ + | Care Recharger Name | Role | Phone | + [...] + + + + | 11/06/ | Hospital | [facility] | Michael Shelley MD | | | 2019 - | Encounter | [address] | [address] | | | | | [place] [address] | [address] | | | 11/09/ | | [phone] | [place] [address] | | | 2018 | | | [phone] | | | | | | | [...] + + + | Blood Pressure | 110/69 | 11/09/2018 11:22 AM | | | | | PDT | | + + + + + | Pulse | 100 | 11/09/2018 11:22 AM | | | | | PDT | | + + + + + | Temperature | 37.1 C (98.8 F) | 11/09/2018 11:22 AM | | | | | PDT | | + + + + + | Respiratory Rate | 18 | 11/09/2018 4:24 AM | | | | | PDT | | + + + + + | Oxygen Saturation | 96% | 11/09/2018 11:22 AM | | | | | PDT | | + + + + + | Inhaled Oxygen | - | - | | | Concentration | | | | + + + + + | Weight | 93.3 kg (205 lb 11 | 11/09/2018 4:24 AM | | | | oz) | PDT | | + + + + + | Height | 172.7 cm (5' 8") | 11/06/2018 6:00 AM | | | | | PDT | | + + + + + | Body Mass Index | 31.27 | 11/06/2018 6:00 AM | | | | | PDT [...] documented as of this encounter Discharge Summaries Malik Milner MD - 11/09/2018 1:55 PM PDTFormatting of this note might be different fr om the original. [facility] discharge Summary Discharging Provider: Malik Milner MD Discharging Attending Physician: Malik Milner MD PCP: Bartolome Frederick DO Admission Date: 11/06/2018 Discharge Date: 11/09/2018 Hospital Stay: 3 day(s) Diagnosis: Diagnoses Lumbar spondylosis/spondylolisthesis/degenerative disc disease/foraminal stenosis with radi culopathy POA: Status post minimally invasive L2-4 anterior and posterior lumbar fusion by Zack Shelley on 11/06/2018 Status post [place] [facility] mechanical mitral valve replacement: Patient was discharged on Loven ox 1 mg/kg twice daily as a bridge until his INR is therapeutic again. This was done as rec ommended by neurosurgery and their discussion with patient's auto self service station attendant which was planned prior to the procedure. Hypertension: Stable Nonspecific dyslipidemia: Stable Restless leg syndrome: Stable on ropinirole Opiate-induced constipation: Patient to continue laxative/bowel regimen post discharge CKD stage III: Stable 1/2 blood cultures Positive for gram-positive cocci in clusters, negative for Staphylococcu s aureus per PCR after patient was discharged from the hospital. These results were discuss ed with neurosurgeon/Dr Shelley and he told me that he will coordinate repeat blood cultures to be drawn next Sunday with patient's PCP. Procedures: Procedure: 1. Minimally invasive L2-4 anterior and posterior lumbar fusion 2. Posterolateral lumbar arthrodesis L2-3, L3-4 3. Anterior lumbar interbody arthrodesis L2-3, L3-4 4. Anterior PEEK interbody spacer L2-3, L3-4 5. Intraoperative fluoroscopy for spinal instrumentation 6. Allograft bone placement for arthrodesis L2-3, L3-4 Reason for Admission: Lumbar DJD and radiculopathy for elective procedure Hospital Course by Problem (with follow-up plan/instructions): This is a pleasant 68-year-old male who has had symptoms of lumbar/back pain and radiculopa thy for several years. Patient failed conservative treatments. He followed up with neurosu janusz outpatient. He was scheduled for lumbar fusion procedure by neurosurgery team. Nathan montero has previous history of mitral valve replacement in the past. Neurosurgery team ilana johnston plan for anticoagulation and bridging post surgery with patient's primary auto self service station attendant Zack Jennings. Patient underwent above-noted procedure on 11/06/2018. He was admitted to ICU post his proc edure drains were removed and he was subsequently moved to PCU floor. Patient was having lo w-grade fevers after surgery. Hospitalist team saw the patient. Blood cultures were obtain ed. Patient noted marked improvement with his symptoms of lumbar radiculopathy after his demarco rgery. Patient was able to ambulate in the hallway using a walker with physical therapy. Ally grace has been passing flatus but has not had a bowel movement. He was given option of enema pr ior to discharge but he prefers continuing MiraLAX and senna for couple of days more and riccardo l take enema at home if he has no BM. Patient was afebrile for 24 hours prior to discharge. Prior to discharge it was discussed with the patient that if his kidney function worsens a nd his dose of Lovenox may need to be decreased to once a day. Also I gave him the option o f staying in the hospital on heparin drip with Coumadin dose gradually titrated for INR betw een 2.5-3.5. I discussed this with neurosurgery team/Dr. Jones but I was informed that th mckay had already planned bridging with Lovenox post surgery with patient's auto self service station attendant jonathan singleton. Patient will be discharged on Lovenox and Coumadin. Dose of Lovenox and Coumadin were disc ussed with the patient. He will follow-up with INR clinic close to his home and Deanna Ridley son will manage patient's INR. He will continue Lovenox until his INR is between 2.5-3.5. He will follow-up with his primary auto self service station attendant Dr. Jennings for further instructions regarding this post discharge. Patient received perioperative antibiotics. He was given adequate supply of pain medications at the time of discharge. Follow-ups were discussed. Patient left the hospital with his family. About 30 minutes after discharge we were notified by lab that patient's /2 blood cultures came back positive for gram-positive cocci in clusters. PCR was negative for Staphylococcus aureus. I discussed this with neurosurgery/ and he told me that he is still comforta ble discharging the patient home today. I also spoke with ID and they recommended repeat bl ood cultures on Sunday. Attempted to call the patient several times after culture results w ere obtained but was unsuccessful in reaching him for at least 3 hours. Ultimately I was ab le to contact him and he was informed about the culture results. I have advised him to mateo tor his temperature curve for next 3 to 4 days. I have advised him to follow-up with his PC Ps office and get 2 sets of blood cultures drawn on Sunday. Neurosurgeon told me that he wi ll coordinate this with patient's PCP. Pertinent Findings: Labs: Respiratory viral panel negative, blood culture 1/2+ for gram-positive cocci in clust ers. PCR positive for Staphylococcus but negative for Staphylococcus aureus. Consultants (service/attending name): Michael Shelley neurosurgery Discharge Medications: Medication List START taking these medications acetaminophen 500 mg Tab Commonly known as: TYLENOL Take 2 tablets by mouth every six hours as needed for mild pain. oxyCODONE (immediate release) 10 mg Tab Commonly known as: ROXICODONE Take 1 tablet by mouth every four hours as needed for severe pain. polyethylene glycol 17 gram Pwpk Commonly known as: MIRALAX Mix 1 packet and take orally two times daily for 7 days. Do not take if you have more than 2 stools over 24 hours senna-docusate 8.6-50 mg Tab Commonly known as: SENOKOT S Take 2 tablets by mouth two times daily. CHANGE how you take these medications baclofen 20 mg Tab Commonly known as: LIORESAL Take 0.5 tablets by mouth three times daily as needed (muscle spasms). What changed: how much to take when to take this reasons to take this enoxaparin 80 mg/0.8 mL Syrg Commonly known as: LOVENOX Inject 0.8 mL under the skin (SUBC) every twelve hours. Until INR is above 2.5 then stop. R isks of lovenox discussed with patient What changed: additional instructions verapamil SR 180 mg Tber Commonly known as: CALAN SR,ISOPTIN SR Take 1 tablet by mouth once daily. Start on 11/12/18 if systolic blood pressure has been abo ve 130 mm of hg Start taking on: 11/12/2018 What changed: additional instructions These instructions start on 11/12/2018. If you are unsure what to do until then, ask your doctor or other care provider. warfarin 5 mg Tab Commonly known as: COUMADIN Take 0.5 tablets by mouth once daily. 2.5 mg today and tomorrow and then check INR on and then dose adjust per your auto self service station attendant What changed: how much to take additional instructions CONTINUE taking these medications ascorbic acid SR 1,000 mg Tab Take 500 mg by mouth once daily in the evening. atorvastatin 20 mg Tab Commonly known as: LIPITOR Take 20 mg by mouth once daily in the evening. Dmlikra-Garnhvqni-Qmml Tab Commonly known as: YURPSND-OXKSSVNRR-FKNI Take by mouth once daily. Ferrous Sulfate 324 mg (65 mg iron) Tbec Take 324 mg by mouth once daily. gabapentin 300 mg Cap Commonly known as: NEURONTIN Take 600 mg by mouth three times daily. rOPINIRole 4 mg Tab Commonly known as: REQUIP Take 4 mg by mouth once daily in the evening. tamsulosin 0.4 mg Cap Commonly known as: FLOMAX Take 0.4 mg by mouth once daily. temazepam 30 mg Cap Commonly known as: RESTORIL Take 30 mg by mouth once daily at bedtime. VITAMIN B-12 1,000 mcg Tab Generic drug: cyanocobalamin Take 1 tablet by mouth once daily. STOP taking these medications losartan 100 mg Tab Commonly known as: COZAAR spironolactone 25 mg Tab Commonly known as: ALDACTONE tiZANidine 4 mg Cap Commonly known as: ZANAFLEX Allergies: Allergies Allergen Reactions Penicillins Anaphylaxis Stopped breathing Bee Pollen Pruritus and Unknown Hay Fever Lisinopril Cough Codeine Nausea Codeine Sulfate Headache Cold sweats. Code Status: Full POLST completed: no Additional Instructions: Diet Instructions Resume home diet - Activity Instructions Activity: -Activity instructions: no strenuous exercise, no bending/twisting, lifting restricted to < 1/2 gallon of milk in weight. -No forward bending to the floor to crab picker objects -Keep head above the level of the heart -Walk 150 feet 3-4 times daily -You may remove compression stockings when you are able to walk 150 feet three times daily. -No driving after surgery or while taking opioid pain medications, muscle relaxants or any other medication that causes drowsiness. This will be addressed at your 2 weeks post-op vis it. -Physical therapy recommendations will be addressed at your 2 weeks post-op visit. -Wear LSO brace when out of bed. Additional Instructions Neurosurgery Discharge Plan of Care Wound Care: Surgical incisions *no submersion in water - no bath or swimming *You have Dermabond (SKIN GLUE) on your incisions you may shower on post-op day #3. *Please keep you incisions covered with steri-strips and Band-Aids for the first 7-10 day a fter surgery. ANTICOAGULATION: Warfarin 2.5 mg 11/09/18 and 11/10/09 with Lovenox 80 mg SQ twice daily. IN R on Sunday at the [facility] with Deanna Quinn. Lovenox dose may be adjusted based up on changing kidney function labs. Pain: -Scheduled Tylenol 650-1000mg every 6 hours x 7 days post-op then as needed. -Do not exceed 4 grams of acetaminophen daily -As needed pain medication. Wean off as soon as possible -NO NSAIDs (Ibuprofen, motrin, Aleve) Medication warning Continue to AVOID the following: *All non-steroidal anti-inflammatories and anti-platelet medications (Aspirin or any medica tion that contains Aspirin, Aleve, Advil, Celebrex, Excedrin, Ibuprofen, Toradol,Fish oil pr oducts, Indocin, Naproxen, Fragmen, Plavix supplements, root bear, etc.) *All Marijuana products (inhalational, edible, topical) *All herbal supplements, including herbal tea *Topical NSAIDs/pain relievers (Diclofenac, Aspercreme, Voltaren gel, etc.) DO NOT RESTART THESE MEDICATIONS UNTIL CLEARED BY [facility]. Activity: -Activity instructions: no strenuous exercise, no bending/twisting, lifting restricted to < 1/2 gallon of milk in weight. -No forward bending to the floor to crab picker objects -Keep head above the level of the heart -Walk 150 feet 3-4 times daily -You may remove compression stockings when you are able to walk 150 feet three times daily. -No driving after surgery or while taking opioid pain medications, muscle relaxants or any other medication that causes drowsiness. This will be addressed at your 2 weeks post-op vis it. -Physical therapy recommendations will be addressed at your 2 weeks post-op visit. -Wear LSO brace when out of bed. Diet: -General diet Bowel: -daily bowel protocol recommend Colace, Miralax, Metamucil -no straining Neurosurgery Follow-up -follow-up in 4 weeks for follow-up 12/05/2018 10:45 AM Office Address: [facility] [address], [address] [place], [place] [id number] INR Standing Status: Future Expected By: 11/11/18 Standing Exp. Date: 12/11/19 Basic Metabolic Set (Na, K, Cl, TCO2, Bun, Cr, Glu, Ca) Standing Status: Future Expected By: 11/11/18 Standing Exp. Date: 12/11/19 Follow Up: Future Appointments Provider Department Dept Phone Center 12/05/2018 11:[address] [phone] [phone] [facility] Neurosur Schedule the following appointment(s) when you get home Bartolome Frederick DO In 1 week. Specialty: Family Medicine Contact information [address] [facility] [place] [address] Michael Shelley MD In 3 weeks. Specialty: Neurological Surgery Contact information [address] [place] [id number] Wesley Jennings MD In 1 week. Specialty: Cardiovascular Diseases Contact information [address] [place] [address] [facility] [id number] Discharge Physical Exam: Last 24 hour min/max Temp: 37.1 C (98.8 F) No data recorded Pulse: 100 No data recorded Resp: 18 No data recorded BP: 110/69 No data recorded SpO2: 96 % No data recorded Body mass index is 31.27 kg/m. General: Alert, cooperative, not in any distress HEENT/Neck: Normocephalic, atraumatic Cardiovascular: S1-S2 heard, rate rhythm regular, mechanical heart valve sounds appreciated Pulmonary: Good effort, clear to auscultation both sides, no Rales or wheezes are heard Abdominal: Soft, nondistended, surgical incision site covered with Band-Aid, bowel sounds p resent Skin: No petechia, no rashes are noted Musculoskeletal: Surgical incision sites over back covered with Band-Aid. Neuro: Power is 5/5 all 4 extremities, sensations to pain and touch intact Psych: Alert oriented x3 Total time spent on this discharge was 45 minutes. Care plan was discussed with Dr. shelley on the day of discharge. Results of blood cultures were discussed with him on the day of disc har. He will coordinate repeat blood cultures to be drawn next Sunday on 11/11/2018 with vicente orosco's PCPs office. MD Malik Mendoza MD documented in this e ncounter Discharge Instructions Discharge Instr - AVS First Page Jaison Barber PA-C - 11/07/2018 7:35 AM PDTNeurosurge ry Follow-up -follow-up in 4 weeks for follow-up 12/05/2018 10:45 AM Office Address: Dr. Michael Shelley [facility] [address], [address] [place] [address] Discharge Instr - Activity Jaison Barber PA-C - 11/07/2018 7:32 AM PDTActivity: -Activity instructions: no strenuous exercise, no bending/twisting, lifting restricted to < 1/2 gallon of milk in weight. -No forward bending to the floor to crab picker objects -Keep head above the level of the heart -Walk 150 feet 3-4 times daily -You may remove compression stockings when you are able to walk 150 feet three times daily. -No driving after surgery or while taking opioid pain medications, muscle relaxants or any other medication that causes drowsiness. This will be addressed at your 2 weeks post-op vis it. -Physical therapy recommendations will be addressed at your 2 weeks post-op visit. -Wear LSO brace when out of bed.Electronically signed by Jaison Barber PA-C at 7:32 AM PDT Discharge Instr - Diet Jaison Barber PA-C - 11/07/2018 7:32 AM PDTResume home dietElec tronically signed by Jaison Barber PA-C at 11/07/2018 7:32 AM PDT Discharge Instr - Diagnoses Jaison Barber PA-C - 11/07/2018 7:30 AM PDTKyphosis of tho racolumbar region Lumbar spondylosis Spondylolisthesis of lumbar region Lumbar degenerative disc disease Lumbar foraminal stenosis Lumbar radiculopathy Discharge Instr - Procedures Jaison Barber PA-C - 11/07/2018 7:30 AM PDT1. Minimally invasive L2-4 anterior and posterior lumbar fusion 2. Posterolateral lumbar arthrodesis L2-3, L3-4 3. Anterior lumbar interbody arthrodesis L2-3, L3-4 4. Anterior PEEK interbody spacer L2-3, L3-4 5. Intraoperative fluoroscopy for spinal instrumentation 6. Allograft bone placement for arthrodesis L2-3, L3-4 Discharge Instr - Diet (facility) Malik Milner MD - 11/09/2018 9:56 AM PDTRegular t Discharge Instr - Activity (facility) Malik Milner MD - 11/09/2018 9:56 AM PDT As ish erated. Instruction per neuro surgery teamElectronically signed by Malik Milner MD at 9:56 AM PDT Additional Instructions Jaison Barber PA-C - 11/07/2018 7:31 AM PDTNeurosurgery Discha rge Plan of Care Wound Care: Surgical incisions *no submersion in water - no bath or swimming *You have Dermabond (SKIN GLUE) on your incisions you may shower on post-op day #3. *Please keep you incisions covered with steri-strips and Band-Aids for the first 7-10 day a fter surgery. ANTICOAGULATION: Warfarin 2.5 mg 11/09/18 and 11/10/09 with Lovenox 80 mg SQ twice daily. IN R on Sunday at the [facility] with Deanna Quinn. Lovenox dose may be adjusted based up on changing kidney function labs. Pain: -Scheduled Tylenol 650-1000mg every 6 hours x 7 days post-op then as needed. -Do not exceed 4 grams of acetaminophen daily -As needed pain medication. Wean off as soon as possible -NO NSAIDs (Ibuprofen, motrin, Aleve) Medication warning Continue to AVOID the following: *All non-steroidal anti-inflammatories and anti-platelet medications (Aspirin or any medica tion that contains Aspirin, Aleve, Advil, Celebrex, Excedrin, Ibuprofen, Toradol,Fish oil pr oducts, Indocin, Naproxen, Fragmen, Plavix supplements, root bear, etc.) *All Marijuana products (inhalational, edible, topical) *All herbal supplements, including herbal tea *Topical NSAIDs/pain relievers (Diclofenac, Aspercreme, Voltaren gel, etc.) DO NOT RESTART THESE MEDICATIONS UNTIL CLEARED BY [facility]. Activity: -Activity instructions: no strenuous exercise, no bending/twisting, lifting restricted to < 1/2 gallon of milk in weight. -No forward bending to the floor to crab picker objects -Keep head above the level of the heart -Walk 150 feet 3-4 times daily -You may remove compression stockings when you are able to walk 150 feet three times daily. -No driving after surgery or while taking opioid pain medications, muscle relaxants or any other medication that causes drowsiness. This will be addressed at your 2 weeks post-op vis it. -Physical therapy recommendations will be addressed at your 2 weeks post-op visit. -Wear LSO brace when out of bed. Diet: -General diet Bowel: -daily bowel protocol recommend Colace, Miralax, Metamucil -no straining Neurosurgery Follow-up -follow-up in 4 weeks for follow-up 12/05/2018 10:45 AM Office Address: Dr. Michael Shelley [facility] [address], [address] [place] [id number] AttachmentsThe following attachments cannot be sent through Care Everywhere.Lumbar Spinal F usion: Post-op (French)documented in this encounter Medications at Time of Discharge [...] | | 0 | | | | Guoumxm-Qfkuvbyvd-Qp | daily. | | | | | [...] | | | | | | | auto self service station attendant | | | | | + + + +---------+ + + | polyethylene | Mix 1 packet and | 14 | 0 | 11/10/19 | | | glycol 17 gram oral | take orally two | packet | | 19 | 9 | | powder in packet | times daily for 7 | | | | | | | days. Do not take if | | | | | | | you have more than | | | | | | | 2 stools over 24 | | | | | | | hours | | | | | + + + +---------+ + + documented as of this encounter Progress Notes Malik Milner MD - 11/09/2018 1:55 PM PDTI called and updated patient on his blood cul ture results. Patient denies having any fevers post his hospitalization. 1/2 blood culture s drawn on 11/08/2018 are growing Staphylococcus epidermidis. I think this is likely contami nant. I have advised the patient to get repeat blood cultures x 2 drawn at the nearest lab close to his house. I tried to contact patient's PCP but was placed on hold for 30 minutes and could not establish contact. I have asked the patient to call his PCPs office and get o rder to get blood cultures done. Patient expressed verbal understanding and said that he wo uld do so LAMIN. Tello Morales, RN - 11/09/2018 1:50 PM PDTPt michelle'd to home in care of . All belongings sent with pt. AVS reviewed with pt. All questions answered. Note: Positive BC notification after pt had left. Dr. Milner spoke with pt @ [phone] and informed pt to go get additional BC drawn (in order to r/o contamination), take temperature 2x/day and notify primary MD if febrile. Electronicall y signed by Tello Lowry, RN at 11/09/2018 3:22 PM Malik Hollingsworth MD - 11/09/2018 1:20 P M PDTPatient was discharged this afternoon. Patient's RN was called by lab after the patien t left the hospital that patient's 1/2 blood cultures drawn on 11/08/2018 came back positive for gram-positive cocci in clusters. I tried to call the patient but neither the patient no r his family answered my calls. I spoke with Dr. Shelley with neurosurgery. Dr. Shelley feels comf ortable letting the patient go home and he will coordinate repeat blood cultures to be drawn on Sunday by patient's PCP. I spoke with ID. They suggested that if PCR on culture shows coagulase-negative staph then it would be okay to get blood cultures on Sunday. If PCR shows staph aureus then patient w ould require rehospitalization and repeat cultures and initiation of emergent antibiotics. I will convey my recommendations to Dr. Shelley with neurosurgery. Malik Hollingsworth MD - 11/08/2018 7:30 PM PDTForma tting of this note might be different from the original. Hospitalist Progress Note Hospital Day: 2 Subjective: Patient was seen and examined. Patient says that he has been feeling a lot better. Denies having any BMs. We discussed about risk and benefits of anticoagulation. I discussed maverick ent's case with neurosurgery team. Objective: Last Vitals: BP 116/46 | Pulse 96 | Temp 36.7 C (98.1 F) (Temporal) | Resp 16 | Ht 1.727 m (5' 8") | Wt 90.6 kg (199 lb 11.8 oz) | SpO2 96% | BMI 30.37 kg/m | BSA 2.08 m 24 Hour Vital Min/Max: Systolic (24hrs), Av , Min:92 , Max:123 Diastolic (24hrs), Av, Min:46, Max:59 Pulse Min: 95 Max: 108 Temp Min: 36.6 C (97.9 F) Max: 39 C (102.2 F) Resp Min: 16 Max: 21 SpO2 Min: 90 % Max: 96 % Intake/Output Summary (Last 24 hours) at 11/08/20181929 Last data filed at 11/08/2018 1000 Gross per 24 hour Intake 785 ml Output 800 ml Net -15 ml Intake/Output Summary (Last 24 hours) at 11/08/20181929 Last data filed at 11/08/2018 1000 Gross per 24 hour Intake 785 ml Output 800 ml Net -15 ml Physical Exam: BP 116/46 | Pulse 96 | Temp 36.7 C (98.1 F) (Temporal) | Resp 16 | Ht 1.727 m (5' 8 ") | Wt 90.6 kg (199 lb 11.8 oz) | SpO2 96% | BMI 30.37 kg/m | BSA 2.08 m General: Alert, cooperative, not in distress Neck: Supple, no rigidity Heart: S1-S2 heard, rate rhythm regular Pulmonary: Good effort, clear to auscultation both sides, no Rales or wheezing Abdomen: Soft, nondistended, nontender, bowel sounds are present Extremities: 1+ lower extremity swelling is noted, dorsalis pedis pulses are 2+ bilaterally Neuro: Power is 5/5 all 4 extremities, sensations to pain and touch intact, cranial nerves II to XII are grossly intact Skin: No rashes, no bruises Medications Scheduled Medication Dose/Rate, Route, Frequency Last Action acetaminophen (TYLENOL) tablet 1,000 mg 1,000 mg, oral, Q6H Given: 11/08 1724 atorvastatin (LIPITOR) tablet 20 mg 20 mg, oral, QPM Given: 11/07 2056 baclofen (LIORESAL) tablet 20 mg 20 mg, oral, QPM Given: 11/07 2057 enoxaparin (LOVENOX) injection 80 mg 80 mg, subQ, Q12H (Scheduled) Given: 11/08 130 gabapentin (NEURONTIN) capsule 600 mg 600 mg, oral, TID Given: 11/08 1725 lidocaine (LIDODERM) 5 % patch 1 patch 1 patch, TD, Q24H Applied Patch: 11/08 101 lidocaine (LIDODERM) 5 % patch 1 patch 1 patch, TD, Q24H Applied Patch: 11/08 100 polyethylene glycol (MIRALAX) packet 17 g 17 g, oral, DAILY Given: 11/08 101 senna-docusate (SENOKOT S) 8.6-50 mg 2 tablet 2 tablet, oral, BID Given: 11/08 1006 tamsulosin (FLOMAX) capsule 0.4 mg 0.4 mg, oral, DAILY Given: 11/08 1007 warfarin (COUMADIN) tablet 5 mg 5 mg, oral, ONCE Ordered PRN Medication Dose/Rate, Route, Frequency Last Action bisacodyl (DULCOLAX) suppository 10 mg 10 mg, rect, DAILY PRN Ordered hydrALAZINE (APRESOLINE) injection 10-20 mg 10 mg, IV, Q4H PRN Given: 11/06 143 labetalol (TRANDATE) IV injection 5-10 mg 5-10 mg, IV, Q4H PRN Ordered melatonin tablet 3 mg 3 mg, oral, HS PRN Ordered methocarbamol (ROBAXIN) tablet 500 mg 500 mg, oral, TID PRN Given: 11/07 110 oxyCODONE (immediate release) (ROXICODONE) tablet 5-15 mg 5 mg, oral, Q3H PRN Given: 11/08 1725 polyethylene glycol (MIRALAX) packet 34 g 34 g, oral, TID PRN Ordered CBC with diff last 72 hours (or 3 results) - Refreshable Recent Labs 11/06/18 1432 11/07/18 0412 11/08/18 0241 WBC 13.00* 10.40 12.00* HB 10.8* 10.3* 9.4* HCT 33.0* 30.5* 28.1* PLT 217 215 194 NEUTROPERC -- 75.4* 79.1* LYMPHPERC -- 12.0* 7.8* MONOPERC -- 10.1* 11.4* BASOPERC -- 0.3 0.5 EOSPERC -- 2.2 1.2 Recent Labs 10/24/18 1205 11/06/18 1432 11/07/18 0412 11/07/18 0648 11/08/18 0241 NA 138 -- 136 -- 136 -- 135* K 4.7 -- 4.5 -- 3.9 -- 4.0 CL 105 -- 104 -- 102 -- 103 BICARB 26 -- 25 -- 25 -- 25 BUN 36* -- 23* -- 22* -- 27* CR 1.7* -- 1.5* -- 1.5* -- 1.8* GLU 93 < > 123* < > 104* 108* 122* CA 9.6 -- 9.4 -- 9.0 -- 8.8 AST 19 -- -- -- -- -- -- ALT 20 -- -- -- -- -- -- AP 81 -- -- -- -- -- -- TBILI 0.4 -- -- -- -- -- -- TP 7.2 -- -- -- -- -- -- ALB 4.6 -- 4.3 -- 3.9 -- 3.6 ANIONGAP 7 -- 7 -- 9 -- 7 < > = values in this interval not displayed. Assessment and Plan: Lumbar spondylolisthesis, lumbar DJD, lumbar foraminal stenosis and radiculopathy POA: Stat us post minimally invasive L2-L4 anterior and posterior lumbar fusion on 11/06/2018 Plan: Pain control adequate. Patient has been ambulating. Will increase MiraLAX to BID Status post 31 mm [facility] mechanical MVR: Currently on Lovenox 1 mg/kilogram SC every 12 hours as a bridge until INR is therapeutic. Patient received 5 mg of Coumadin last night. Discussed risk versus benefit of Lovenox and heparin with neurosurgery team. Neurosurgery team indicated that they would still favor Lovenox over heparin. Plan: Risks and benefits of anticoagulation were discussed with the patient. Continue Lovenox 1 mg/kilogram sc every 12 hours for now. However if patient's kidney func tion worsens he will require every 24 hour dosing. We will give Coumadin 5 mg this evening. Continue Coumadin 2.5 mg daily post discharge and then check INR again on Sunday11/11/2018 and then dose adjust Coumadin. CKD stage III: Stable. DVT prophylaxis: Patient is currently therapeutically anticoagulated Nutrition: Regular diet Over 45 minutes spent, more than 50% of which was devoted to counseling and coordination of care. Malik Milner MD Inpatient Medicine Jaison zhong PA-C - 11/08/2018 1:27 PM PDTFormatting of this note might be different fr om the original. SARAH Rai [facility] [address] [place] [address] NEUROSURGERY PROGRESS NOTE PATIENT NAME: Lupillo De La Paz DATE OF SERVICE: 11/07/2018 9:25 AM S: Mr De La Paz is feeling better this AM. He is having less back pain as each day passes. H e is becoming more mobile and he has been participating with PT and OT. He is preparing for discharge home with family members and he is hoping to leave tomorrow. Drain was removed y . The patient has been voiding and is passing flatus but no BM yet. O: CURRENT MEDICATIONS: Current Facility-Administered Medications: acetaminophen (TYLENOL) tablet 1,000 mg, 1,000 m g, oral, Q6H, Josh Gaona MD, 1,000 mg at 11/08/18 1007 atorvastatin (LIPITOR) tablet 20 mg, 20 mg, oral, QPM, Josh Gaona MD, 20 mg at 11/07/182056 baclofen (LIORESAL) tablet 20 mg, 20 mg, oral, QPM, Josh Gaona MD, 20 mg at 11/07/18 20 58 bisacodyl (DULCOLAX) suppository 10 mg, 10 mg, rectal, DAILY PRN, Josh Gaona MD enoxaparin (LOVENOX) injection 80 mg, 80 mg, subcutaneous, Q12H (Scheduled), Malik grace MD, 80 mg at 11/08/18 1301 gabapentin (NEURONTIN) capsule 600 mg, 600 mg, oral, TID, Josh Gaona MD, 600 mg at 05/24 1007 hydrALAZINE (APRESOLINE) injection 10-20 mg, 10-20 mg, intravenous, Q4H PRN, Jarred thapa MD, 10 mg at 11/06/18 1438 labetalol (TRANDATE) IV injection 5-10 mg, 5-10 mg, intravenous, Q4H PRN, Jarred Bunn MD lidocaine (LIDODERM) 5 % patch 1 patch, 1 patch, transdermal, Q24H, Jarred Bunn MD, 1 patch at 11/08/18 1010 lidocaine (LIDODERM) 5 % patch 1 patch, 1 patch, transdermal, Q24H, Jarred Bunn MD, 1 patch at 11/08/18 1009 melatonin tablet 3 mg, 3 mg, oral, HS PRN, Josh Gaona MD methocarbamol (ROBAXIN) tablet 500 mg, 500 mg, oral, TID PRN, Josh Gaona MD, 500 mg at 11/07/18 1105 oxyCODONE (immediate release) (ROXICODONE) tablet 5-15 mg, 5-15 mg, oral, Q3H PRN, Josh gutierrez MD, 5 mg at 11/08/18 1307 polyethylene glycol (MIRALAX) packet 17 g, 17 g, oral, DAILY, Josh Gaona MD, 17 g at 1012 polyethylene glycol (MIRALAX) packet 34 g, 34 g, oral, TID PRN, Josh Gaona MD senna-docusate (SENOKOT S) 8.6-50 mg 2 tablet, 2 tablet, oral, BID, Josh Gaona MD, 2 ta blet at 11/08/18 1007 tamsulosin (FLOMAX) capsule 0.4 mg, 0.4 mg, oral, DAILY, Josh Gaona MD, 0.4 mg at 11/08 1007 ALLERGIES: Allergies Allergen Reactions Penicillins Anaphylaxis Stopped breathing Bee Pollen Pruritus and Unknown Hay Fever Lisinopril Cough Codeine Nausea Codeine Sulfate Headache Cold sweats. PHYSICAL EXAMINATION: Last Vitals: BP 107/53 | Pulse 96 | Temp 36.6 C (97.9 F) (Temporal) | Resp 16 | Ht 1.727 m (5' 8") | Wt 90.6 kg (199 lb 11.8 oz) | SpO2 96% | BMI 30.37 kg/m | BSA 2.08 m 24 Hour Vital Min/Max: Systolic (24hrs), Av , Min:92 , Max:128 Diastolic (24hrs), Av, Min:47, Max:63 Pulse Min: 84 Max: 108 Temp Min: 36.6 C (97.9 F) Max: 39 C (102.2 F) Resp Min: 11 Max: 21 SpO2 Min: 90 % Max: 96 % Intake/Output Summary (Last 24 hours) at 11/08/2018 1336 Last data filed at 11/08/2018 1000 Gross per 24 hour Intake 785 ml Output 1800 ml Net -1015 ml GENERAL: Lupillo De La Paz is in no acute distress with unlabored respirations. HEENT: HEAD/FACE: EYES: Normocephalic and atraumatic. There are no areas of recent trauma. Normal sclerae without icterus. ABDOMEN Soft and nondistended. EXTREMITIES: No edema or swelling. SCD's BACK: The back incisions are dressed and without active drainage from dressings. NEUROLOGICAL EXAM: MENTAL STATUS: The patient is awake, alert, and oriented. He follows simple and complex commands. He speech is fluent, his comprehends speech well, and his repeats well. He has no apparent deficits with short or jail memory. MOTOR EXAM: Motor strength is stable SENSORY EXAM: Sensory exam is stable LABS: Lab Results Component Value Date WBC 12.00 11/08/2018 HB 9.4 11/08/2018 HCT 28.1 11/08/2018 PLT 194 11/08/2018 MCV 92.7 11/08/2018 RDW 13.5 11/08/2018 Lab Results Component Value Date NA 135 11/08/2018 K 4.0 11/08/2018 CL 103 11/08/2018 BICARB 25 11/08/2018 BUN 27 11/08/2018 EGFRAFRICAN 46 11/08/2018 EGFRNONAFR 38 11/08/2018 CR 1.8 11/08/2018 GLU 122 11/08/2018 CA 8.8 11/08/2018 ANIONGAP 7 11/08/2018 ASSESSMENT: NEUROSURGICAL DIAGNOSES: S/p lumbar fusion HOSPITAL/GENERAL DIAGNOSES: Past Medical History: Diagnosis Date Anemia Aortic stenosis Bleeding tendency (HCC) Chronic anticoagulation Essential hypertension High cholesterol MANSOOR (obstructive sleep apnea) Palpitations PVC (premature ventricular contraction) Renal failure Restless leg syndrome PLAN: S/p lumbar fusion - Neurologically stable. Pain control is adequate. - Continue Lovenox therapeutic dosing. Restart warfarin and let INR climb to goal. Dr Alana grider and Dr Gallardo discussed the AC this AM. Mr De La Paz is familiar with administration of Lo venox and he was taking 80 mg SQ BID prior to surgery for his bridge. He follows with Dane Quinn at the [facility] and he will need to see her next week for follow-up INR. - Mobilize with PT/OT - Continue with SCD's - Disp: Likely home tomorrow if meets goals based on PT progress and if he is medically sta ble with regard to cardia and renal issues. Associated attestation - James Jones MD - 11/08/2018 5:18 PM PDTNeurosurgery Attend ing I saw and performed a physical examination of the patient and discussed the patient's manag ement with RICARDO Barber. I reviewed RICARDO Barber note and agree with the documented findings and joseline n of care. I discussed w Dr Milner the anticoagulation strategy as per Dr Shelley and the pts c ardiologist. Pt is doing well and improved from surgery. No signs of bleeding complication. Pt riccardo cont lovenox 80mg bid and coumadin 5 mg x 1 then 2.5 mg po qhs and get an INR on Mond ay Pt would like to d/c home tomorrow James Jones MD [facility] Department of Neurological Guitar MakerGrout Machine TenderMaral Christian, RN - 11/08/2018 10:19 AM PDTCase Management Initial Assessment Reason for Admission: S/P Minimally invasive L2-4 anterior and posterior lumbar fusion 03/26 Admitted From: Home Emergency Contact: Primary Emergency Contact: Ai De La Paz Relation: Spouse Tammie Leblanc / Daughter / [phone] (c) [phone] (h) Past Medical History: M40.295 (ICD-10-CM) - 737.19 (ICD-9-CM) Other kyphosis of thoracolumb ar region M47.816 (ICD-10-CM) - 721.3 (ICD-9-CM) Lumbar spondylosis M43.16 (ICD-10-CM) - 738 .4 (ICD-9-CM) Spondylolisthesis of lumbar region M51.36 (ICD-10-CM) - 722.52 (ICD-9-CM) Lumb ar degenerative disc disease M99.83 (ICD-10-CM) - 724.02 (ICD-9-CM) Lumbar foraminal stenosi s M54.16 (ICD-10-CM) - 724.4 (ICD-9-CM) Lumbar radiculopathy, EXTREME LATERAL INTERBODY FUSI ON 68-year-old male with past history of mechanical mitral valve replacement, CKD, hypertensio n, chronic bilateral lower back pain with bilateral sciatica Lives With: spouse Living Arrangement: house (Patient's home is 1 level with 1 step to enter. Patient's ba throom has a tub shower..) Functional Level Prior to Admission: 0-->independent Transportation Available: family or friend will provide Equipment Currently used at Home/DME Provider: walker;cane Home Health/Infusion Agency: None Insurance/Funding: Medicare A & B, [employer], Assessment: Patient anxious to be discharged. He lives in [place] and his daughter is he re from [place], [place], to provide transportation and needs to be back at work 11/11/18. Shabana donaldson has his TLSO brace and 4WW. Anticipated Discharge Needs: To be determined. Assessment done by: Maral TYSON nuclear waste process operator Nicole Mullen RN - 11/07/2018 3:53 PM PDT [place] RN Handoff Note SBAR Handoff report provided to: TRINH Duarte Handoff process completed: questions answered for receiving RN, patient/room safety check p erformed and additional comments: Neuros q 4 Recommendations forward Pain control Watch for bleeding lovenox Barriers to discharge Pain control Jarred Lemon MD - 11/07/2018 1:16 PM PDTCRITICAL CARE PROGRESS NOTE Author: Jarred Bunn MD Lupillo De La Paz is a 68 y.o. male with a PMH of [facility] MVR, CKD, who presented on for elective 2 level lumbar fusion. Significant Hospital Course/Overnight Events: - heparin drip managed very conservatively, hep levels still subtherapeutic but no bleeding issues and no signs/symptoms of valve compromise - reporting soreness of lower back and legs Assessment and Plan: Patients Hospital Problem List: Active Hospital Problems 1) *History of mitral valve replacement with mechanical valve 2) Chronic bilateral low back pain with bilateral sciatica 3) CKD (chronic kidney disease), stage III (HCC) 4) Essential hypertension 5) S/P lumbar fusion - slow increase in heparin drip, but will turn off at 1600, remove drain, then give lovenox at 1800. Start back process of getting INR therapeutic with warfarin tonight - multimodal analgesia with scheduled APAP, gabapentin, methocarbamol, with narcotics PRN. Hold home temazepam tonight to avoid oversedation. - BPs low, holding home ARB and spironolactone - ADAT - out of bed with brace, work with PT - CBG goal<180 DNR/DNI Updated and daughter at bedside Subjective: reporting soreness of lower back and legs Physical Exam: BP 95/49 | Pulse 113 | Temp 36.5 C (97.7 F) (Temporal) | Resp 14 | Ht 1.727 m (5' 8 ") | Wt 90.6 kg (199 lb 11.8 oz) | SpO2 92% | BMI 30.37 kg/m | BSA 2.08 m Systolic (24hrs), Av , Min:91 , Max:171 Diastolic (24hrs), Av, Min:46, Max:89 Pulse Min: 79 Max: 113 Temp Min: 36.5 C (97.7 F) Max: 38.2 C (100.8 F) Resp Min: 3 Max: 20 SpO2 Min: 89 % Max: 100 % Gen: awake and alert, NAD Neuro: PERRL, EOMI, moves all 4 ext, MARCOS bulb from right paraspinal area with low volume of serosanguineous fluid Resp: symmetric chest expansion, no respiratory distress, adequate SpO2 on monitor on 1L Cardiovascular: NSR on telemetry, extremities are warm and well-perfused Abd: soft, non-distended Ext: no lower extremity edema skin: no rash or lesions amoises, Michael Candelaria MD - 11/07/2018 9:25 AM PDT Michael Shelley MD [facility] [address] [place] [address] NEUROSURGERY PROGRESS NOTE PATIENT NAME: Luplilo De La Paz DATE OF SERVICE: 11/07/2018 9:25 AM S: The patient c/o back pain. It is improving over time and with medication. The patient pratt s been mobilizing some. The leg symptoms are somewhat improved from preoperatively except fo r hip soreness. The patient has been voiding and is passing flatus. O: CURRENT MEDICATIONS: Current Facility-Administered Medications Medication Dose Route Frequency Provider Last Rate Last Dose acetaminophen (TYLENOL) tablet 1,000 mg 1,000 mg oral Q6H Josh Gaona MD 1,000 mg at 11/07/18904 atorvastatin (LIPITOR) tablet 20 mg 20 mg oral QPM Josh Gaona MD 20 mg at 2053 baclofen (LIORESAL) tablet 20 mg 20 mg oral QPM Josh Gaona MD 20 mg at 11/06/182052 bisacodyl (DULCOLAX) suppository 10 mg 10 mg rectal DAILY PRN Josh Gaona MD clindamycin (CLEOCIN) IV 600 mg IN D5W (RTU) 600 mg intravenous Q8H Josh Gaona MD Stopped at 11/07/18 0840 gabapentin (NEURONTIN) capsule 600 mg 600 mg oral TID Josh Gaona MD 600 mg at 0905 heparin in D5W 25,000 Units/250 mL (100 Units/mL) IV infusion (RTU) 1,200 Units/hr int ravenous CONTINUOUS Aly Beatrice, ACNP 12 mL/hr at 11/07/18 0604 1,200 Units/hr at 11/07/18 0604 hydrALAZINE (APRESOLINE) injection 10-20 mg 10-20 mg intravenous Q4H PRN Jarred collins MD 10 mg at 11/06/18 1438 labetalol (TRANDATE) IV injection 5-10 mg 5-10 mg intravenous Q4H PRN Jarred Bunn MD melatonin tablet 3 mg 3 mg oral HS PRN Josh Gaona MD methocarbamol (ROBAXIN) tablet 500 mg 500 mg oral TID PRN Josh Gaona MD metoclopramide HCl (REGLAN) injection 5-10 mg 5-10 mg intravenous Q4H PRN Josh sherman MD metoclopramide HCl (REGLAN) tablet 5-10 mg 5-10 mg oral Q4H PRN Josh Gaona MD ondansetron (ZOFRAN) injection 4 mg 4 mg intravenous Q8H PRN Josh Gaona MD ondansetron ODT (ZOFRAN ODT) tablet 8 mg 8 mg oral Q8H PRN Josh Gaona MD oxyCODONE (immediate release) (ROXICODONE) tablet 5-15 mg 5-15 mg oral Q3H PRN Josh Gaona MD 5 mg at 11/07/18 0440 polyethylene glycol (MIRALAX) packet 17 g 17 g oral DAILY Josh Gaona MD 17 g at 11/07/18 0906 polyethylene glycol (MIRALAX) packet 34 g 34 g oral TID PRN Josh Gaona MD senna-docusate (SENOKOT S) 8.6-50 mg 2 tablet 2 tablet oral BID Josh Gaona MD 2 tablet at 11/07/18 0905 spironolactone (ALDACTONE) tablet 25 mg 25 mg oral DAILY Josh Gaona MD tamsulosin (FLOMAX) capsule 0.4 mg 0.4 mg oral DAILY Josh Gaona MD 0.4 mg at 04/23 0905 ALLERGIES: Allergies Allergen Reactions Penicillins Anaphylaxis Stopped breathing Bee Pollen Pruritus and Unknown Hay Fever Lisinopril Cough Codeine Nausea Codeine Sulfate Headache Cold sweats. PHYSICAL EXAMINATION: BP 98/53 | Pulse 100 | Temp 37.3 C (99.1 F) | Resp 16 | Ht 1.727 m (5' 8") | Wt 90 .6 kg (199 lb 11.8 oz) | SpO2 93% | BMI 30.37 kg/m | BSA 2.08 m Pain Score: | Pain Location: | Pain Educated? | Intake/Output Summary (Last 24 hours) at 11/07/2018924 Last data filed at 11/07/2018 0840 Gross per 24 hour Intake 4020 ml Output 1505 ml Net 2515 ml GENERAL: Lupillo De La Paz is in no acute distress with unlabored respirations. HEENT: HEAD/FACE: EYES: Normocephalic and atraumatic. There are no areas of recent trauma. Normal sclerae without icterus. CHEST: Clear. HEART: Regular. ABDOMEN Soft and nondistended. EXTREMITIES: No edema or swelling. SCD's BACK: The back incisions are dressed and a drain is in place with expected output. NEUROLOGICAL EXAM: MENTAL STATUS: The patient is awake, alert, and oriented. He follows simple and complex commands. He speech is fluent, his comprehends speech well, and his repeats well. He has no apparent deficits with short or jail memory. MOTOR EXAM: Motor strength is stable SENSORY EXAM: Sensory exam is stable 24 HOUR LABS: HCT 30.5 PLT 215 ASSESSMENT: NEUROSURGICAL DIAGNOSES: S/p lumbar fusion HOSPITAL/GENERAL DIAGNOSES: Past Medical History: Diagnosis Date Anemia Aortic stenosis Bleeding tendency (HCC) Chronic anticoagulation Essential hypertension High cholesterol MANSOOR (obstructive sleep apnea) Palpitations PVC (premature ventricular contraction) Renal failure Restless leg syndrome PLAN: S/p lumbar fusion, Hospital day 1 - Neurologically stable. Pain control is adequate. - Medically stable, continues on Heparin GTT for his mechanical valve. Plan is to convert to Lovenox this PM after drain removal. - D/C ABX after drain removed - Mobilize, PT/OT - SCD's - Patient is having adequate bowel function without any concerns. They were counseled that full bowel function may not return for a few days - Drain output is as expected. Continue drain to 10/4 PM - Disp: Likely home in 1-2 days if meets goals based on PT progress ELECTRONICALLY SIGNED BY: Michael Shelley MD, 11/07/2018 9:25 AM Aly Hutchison ACNP - 7:16 PM PDTCRITICAL CARE PROGRESS NOTE Author: MARY Espitia Lupillo De La Paz is a 68 y.o. 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 Shelley, and in ICU post-op for monitoring and heparin bridging. He has previously been anticoagulated with cou madin and was bridged with lovenox prior to surgery, last dose on 11/05. On his arrival to [facility] he was hemodynamically stable and remains stable with reported improvement in his back boo n. Significant Hospital Course/Overnight Events: -Started on conservative dosing heparin drip, no bolus (1000 units) -Pain well controlled overnight with current regimen -Ambulated briefly reporting back, legs feeling improved -Minimal MARCOS output Assessment and Plan: Patients Hospital Problem List: Active Hospital Problems 1) *History of mitral valve replacement with mechanical valve 2) Chronic bilateral low back pain with bilateral sciatica 3) CKD (chronic kidney disease), stage III (HCC) 4) Essential hypertension 5) S/P lumbar fusion -Neuro checks q4 hours -MARCOS with minimal output, continue to monitor -Neurosurgery call if >100 ml MARCOS output -Heparin bridging planned to start at 2200 (03/09) and this will be started at 1000 units wit hout bolus with heparin level recheck at 0400 and slow titration of heparin given surgery wa s earlier today and risk of bleeding -Surgery with minimal EBL and will monitor for bleeding -On chronic pain management for low back pain, will manage with oral pain medication rather than IV medications -Holding temazepam at this time to avoid oversedation -Holding Losartan until Cr back to baseline (recent 1.5), recheck in am -Received ariane-op clindamycin and scheduled q6 Diet: regular DVT prophylaxis starting heparin tonight CODE STATUS: DNR/DNI Subjective: Reports pain is being well controlled and back pain is feeling improved Physical Exam: BP 131/68 | Pulse 99 | Temp 36.7 C (98.1 F) (Temporal) | Resp 14 | Ht 1.727 m (5' 8 ") | Wt 90.6 kg (199 lb 11.8 oz) | SpO2 95% | BMI 30.37 kg/m | BSA 2.08 m Systolic (24hrs), Av , Min:101 , Max:171 Diastolic (24hrs), Av, Min:46, Max:89 Pulse Min: 67 Max: 100 Temp Min: 36 C (96.8 F) Max: 36.7 C (98.1 F) Resp Min: 3 Max: 20 SpO2 Min: 91 % Max: 100 % Gen: awake and alert, NAD Neuro: PERRL, EOMI, moves all 4 ext Resp: symmetric chest expansion, no respiratory distress, adequate SpO2 on monitor Cardiovascular: NSR on telemetry, extremities are warm and well-perfused Abd: soft, non-tender, non-distended Ext: no lower extremity edema skin: no rashes or lesions, surgical dressings dry, intact, MARCOS drain in place I have personally and independently examined this pt and [id number] caring for thi s patient to include not limited to direct patient care, communication with family, nursing staff, and consultants. This time is exclusive of procedures. documented in this en counter Plan of Treatment +--------+---------+ + + + | Date | Type | Specialty | Care Team | Description | +--------+---------+ + + + | 04/30/ | Office | Neurological Surgery | Michael Shelley MD | | | 2020 | Visit | | [address] | | | | | | [address] | | | | | | [place] [address] | | | | | | [phone] | | | | | | | | +--------+---------+ + + + + +------+--------+ + + | Name | Type | Priori | Associated Diagnoses | Order Schedule | | | | ty | | | + +------+--------+ + + | [facility] ONLY | Lab | Routin | | Collect Now for 1 | | | | e | | Occurrences starting | | | | | | 11/08/2018 until | | | | | | 11/08/2018 | + +------+--------+ + + | INR | Lab | Routin | H/O mitral valve | Expected: 11/11/2018 | | | | e | replacement | (Approximate), | | | | | | Expires: 12/11/2019 | + +------+--------+ + + | BASIC METABOLIC SET | Lab | Routin | CKD (chronic | Expected: 11/11/2018 | | (NA, K, CL, TCO2, | | e | kidney disease), | (Approximate), | | BUN, CR, GLU, CA) | | | stage III (HCC) | Expires: 12/11/2019 | + +------+--------+ + + documented as of this encounter Procedures + +--------+ + + + | Procedure Name | Priori | Date/Time | Associated Diagnosis | Comments | | | ty | | | | + +--------+ + + + | CBC AND AUTO DIFF | Routin | 11/09/2018 | | Results for this | | | e | 4:38 AM | | procedure are in the | | | | PDT | | results section. | + +--------+ + + + | INR | Routin | 11/09/2018 | | Results for this | | | e | 4:38 AM | | procedure are in the | | | | PDT | | results section. | + +--------+ + + + | CBC, WITH | Routin | 11/09/2018 | | Results for this | | DIFFERENTIAL | e | 4:38 AM | | procedure are in the | | | | PDT | | results section. | + +--------+ + + + | RENAL FUNCTION SET | Routin | 11/09/2018 | | Results for this | | (NA,K,CL,CO2,BUN,CRE | e | 4:38 AM | | procedure are in the | | AT,GLUC,CA,PHOS,ALB | | PDT | | results section. | | ) | | | | | + +--------+ + + + | MAGNESIUM, PLASMA | Routin | 11/09/2018 | | Results for this | | | e | 4:38 AM | | procedure are in the | | | | PDT | | results section. | + +--------+ + + + | BLOOD CULTURE ID | Urgent | 11/08/2018 | | Results for this | | PANEL PCR | | 2:47 AM | | procedure are in the | | | | PDT | | results section. | + +--------+ + + + | CULTURE, BLOOD | Routin | 11/08/2018 | | Results for this | | | e | 2:47 AM | | procedure are in the | | | | PDT | | results section. | + +--------+ + + + | CULTURE, BLOOD | Routin | 11/08/2018 | | Results for this | | | e | 2:42 AM | | procedure are in the | | | | PDT | | results section. | + +--------+ + + + | CBC AND AUTO DIFF | Routin | 11/08/2018 | | Results for this | | | e | 2:41 AM | | procedure are in the | | | | PDT | | results section. | + +--------+ + + + | INR | Routin | 11/08/2018 | | Results for this | | | e | 2:41 AM | | procedure are in the | | | | PDT | | results section. | + +--------+ + + + | CBC, WITH | Routin | 11/08/2018 | | Results for this | | DIFFERENTIAL | e | 2:41 AM | | procedure are in the | | | | PDT | | results section. | + +--------+ + + + | RENAL FUNCTION SET | Routin | 11/08/2018 | | Results for this | | (NA,K,CL,CO2,BUN,CRE | e | 2:41 AM | | procedure are in the | | AT,GLUC,CA,PHOS,ALB | | PDT | | results section. | | ) | | | | | + +--------+ + + + | MAGNESIUM, PLASMA | Routin | 11/08/2018 | | Results for this | | | e | 2:41 AM | | procedure are in the | | | | PDT | | results section. | + +--------+ + + + | RESPIRATORY PATHOGEN | Routin | 11/08/2018 | | Results for this | | PANEL PCR | e | 12:19 AM | | procedure are in the | | | | PDT | | results section. | + +--------+ + + + | UA, DIPSTICK ONLY | Routin | 11/08/2018 | | Results for this | | | e | 12:18 AM | | procedure are in the | | | | PDT | | results section. | + +--------+ + + + | URINE, MICROSCOPIC | Routin | 11/08/2018 | | Results for this | | EXAM | e | 12:18 AM | | procedure are in the | | | | PDT | | results section. | + +--------+ + + + | URINE SCREEN FOR | Routin | 11/08/2018 | | Results for this | | CULTURE | e | 12:18 AM | | procedure are in the | | | | PDT | | results section. | + +--------+ + + + | X-RAY CHEST 2 VIEW | Routin | 11/08/2018 | | Results for this | | | e | 12:05 AM | | procedure are in the | | | | PDT | | results section. | + +--------+ + + + | HEPARIN, EITHER | Routin | 11/07/2018 | | Results for this | | STANDARD / LMW, | e | 9:53 AM | | procedure are in the | | BLOOD | | PDT | | results section. | + +--------+ + + + | GLUCOSE, POC | Routin | 11/07/2018 | Lumbar foraminal | Results for this | | | e | 6:48 AM | stenosis | procedure are in the | | | | PDT | | results section. | + +--------+ + + + | CBC AND AUTO DIFF | Routin | 11/07/2018 | | Results for this | | | e | 4:12 AM | | procedure are in the | | | | PDT | | results section. | + +--------+ + + + | HEPARIN, EITHER | Routin | 11/07/2018 | History of mitral | Results for this | | STANDARD / LMW, | e | 4:12 AM | valve replacement | procedure are in the | | BLOOD | | PDT | with mechanical | results section. | | | | | valve | | + +--------+ + + + | INR | Routin | 11/07/2018 | | Results for this | | | e | 4:12 AM | | procedure are in the | | | | PDT | | results section. | + +--------+ + + + | CBC, WITH | Routin | 11/07/2018 | | Results for this | | DIFFERENTIAL | e | 4:12 AM | | procedure are in the | | | | PDT | | results section. | + +--------+ + + + | RENAL FUNCTION SET | Routin | 11/07/2018 | | Results for this | | (NA,K,CL,CO2,BUN,CRE | e | 4:12 AM | | procedure are in the | | AT,GLUC,CA,PHOS,ALB | | PDT | | results section. | | ) | | | | | + +--------+ + + + | MAGNESIUM, PLASMA | Routin | 11/07/2018 | | Results for this | | | e | 4:12 AM | | procedure are in the | | | | PDT | | results section. | + +--------+ + + + | GLUCOSE, POC | Routin | 11/06/2018 | Lumbar foraminal | Results for this | | | e | 9:18 PM | stenosis | procedure are in the | | | | PDT | | results section. | + +--------+ + + + | GLUCOSE, POC | Routin | 11/06/2018 | Lumbar foraminal | Results for this | | | e | 6:23 PM | stenosis | procedure are in the | | | | PDT | | results section. | + +--------+ + + + | CBC (HEMOGRAM) ONLY | Urgent | 11/06/2018 | | Results for this | | | | 2:32 PM | | procedure are in the | | | | PDT | | results section. | + +--------+ + + + | HEPARIN, EITHER | Urgent | 11/06/2018 | | Results for this | | STANDARD / LMW, | | 2:32 PM | | procedure are in the | | BLOOD | | PDT | | results section. | + +--------+ + + + | RENAL FUNCTION SET | Routin | 11/06/2018 | | Results for this | | (NA,K,CL,CO2,BUN,CRE | e | 2:32 PM | | procedure are in the | | AT,GLUC,CA,PHOS,ALB | | PDT | | results section. | | ) | | | | | + +--------+ + + + | CBC ONLY | Urgent | 11/06/2018 | | Results for this | | | | 2:32 PM | | procedure are in the | | | | PDT | | results section. | + +--------+ + + + | APTT (ACT. PART. | Urgent | 11/06/2018 | | Results for this | | THROMBO TIME) | | 2:32 PM | | procedure are in the | | | | PDT | | results section. | + +--------+ + + + | MAGNESIUM, PLASMA | Routin | 11/06/2018 | | Results for this | | | e | 2:32 PM | | procedure are in the | | | | PDT | | results section. | + +--------+ + + + | GLUCOSE, POC | Routin | 11/06/2018 | Lumbar foraminal | Results for this | | | e | 1:45 PM | stenosis | procedure are in the | | | | PDT | | results section. | + +--------+ + + + | X-RAY FLUOROSCOPY > | Routin | 11/06/2018 | | Results for this | | 1 HOUR | e | 11:05 AM | | procedure are in the | | | | PDT | | results section. | + +--------+ + + + | X-RAY SPINE | Routin | 11/06/2018 | | Results for this | | LUMBOSACRAL 2 VIEWS | e | 11:01 AM | | procedure are in the | | | | PDT | | results section. 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 | | | | | | M47.816 | | | | | | (ICD-10-CM) - 721.3 | | | | | | (ICD-9-CM) Lumbar | | | | | | spondylosis M43.16 | | | | | | (ICD-10-CM) - 738.4 | | | | | | (ICD-9-CM) | | | | | | Spondylolisthesis of | | | | | | lumbar region | | | | | | M51.36 (ICD-10-CM) - | | | | | | 722.52 (ICD-9-CM) | | | | | | Lumbar degenerative | | | | | | disc disease M99.83 | | | | | | (ICD-10-CM) - | | | | | | 724.02 (ICD-9-CM) | | | | | | Lumbar foraminal | | | | | | stenosis M54.16 | | | | | | (ICD-10-CM) - 724.4 | | | | | | (ICD-9-CM) Lumbar | | | | | | radiculopathy | | + +--------+ + + + | CARDIOLOGY | | 11/06/2018 | | Results for this | | | | 12:00 AM | | procedure are in the | | | | PDT | | results section. | + +--------+ + + + documented in this encounter Results CBC AND AUTO DIFF (11/09/2018 4:38 AM PDT) + + + + + + | Component | Value | Ref Range | Performed | Pathologist | | | | | At | Signature | + + + + + + | WHITE CELL | 11.00 (H) | 3.50 - 10.80 | [facility] | | | COUNT | | K/cu mm | [facility] | | + + + + + + | RED CELL | 3.03 (L) | 4.50 - 6.00 | [facility] | | | COUNT | | M/cu mm | [facility] | | + + + + + + | HEMOGLOBIN | 9.4 (L) | 13.5 - 17.5 | [facility] | | | | | g/dL | [facility] | | + + + + + + | HEMATOCRIT | 28.0 (L) | 41.0 - 53.0 % | [facility] | | | | | | [facility] | | + + + + + + | MCV | 92.5 | 80.0 - 100.0 fL | [facility] | | | | | | [facility] | | + + + + + + | MCH | 31.1 | 27.0 - 34.0 pg | [facility] | | | | | | [facility] | | + + + + + + | MCHC | 33.6 | 33.0 - 35.5 | [facility] | | | | | g/dL | [facility] | | + + + + + + | RDW | 13.8 | 11.5 - 14.5 % | [facility] | | | | | | [facility] | | + + + + + + | PLATELET | 200 | 150 - 400 K/cu | [facility] | | | COUNT | | mm | [facility] | | + + + + + + | MPV | 8.8 | 7.4 - 10.4 fL | [facility] | | | | | | [facility] | | + + + + + + | NEUTROPHIL | 71.2 (H) | 50.0 - 70.0 % | [facility] | | | % | | | [facility] | | + + + + + + | LYMPHOCYTE | 12.2 (L) | 18.0 - 42.0 % | [facility] | | | % | | | [facility] | | + + + + + + | MONOCYTE % | 12.7 (H) | 3.5 - 9.0 % | [facility] | | | | | | [facility] | | + + + + + + | EOS % | 3.3 (H) | 0.0 - 3.0 % | [facility] | | | | | | [facility] | | + + + + + + | BASO % | 0.6 | 0.0 - 2.0 % | [facility] | | | | | | [facility] | | + + + + + + | NEUTROPHIL | 7.80 (H) | 1.80 - 7.70 | [facility] | | | # | | K/cu mm | [facility] | | + + + + + + | LYMPHOCYTE | 1.30 | 1.00 - 4.80 | [facility] | | | # | | K/cu mm | [facility] | | + + + + + + | MONOCYTE # | 1.40 (H) | 0.10 - 0.90 | [facility] | [...] | + + + + + | [facility] | [address] | [place] [address] | | | LAB | | | | + + + + + INR (11/09/2018 4:38 AM PDT) + + + + + + | Component | Value | Ref Range | Performed | Pathologist | | | | | At | Signature | + + + + + + | INR | 1.28 (H) | 0.90 - 1.20 INR | [facility] | | | | | | [facility] | | + + + + + + | PROTHROMBIN | 15.8 (H) | 11.8 - 14.7 sec | [...] - 3.0) INR INR for most | [facility] | | patients with mech. valves (2.5 - 3.5) INR | [facility] | + + + + + + + + | Performing | Address | City/State/Zipcode | Phone Number | | Organization | | | | + + + + + | [facility] | [address] | [place] [address] | | | LAB | | | | + + + + + MAGNESIUM, PLASMA (11/09/2018 4:38 AM PDT) + +-------+ + + + | Component | Value | Ref Range | Performed | Pathologist | | | | | At | Signature | + +-------+ + + + | MAGNESIUM,P | 2.0 | 1.6 - 2.6 mg/dL | [facility] | | | LASMA | | | [facility] | | + +-------+ + + + + + | Specimen | + + | Blood - Blood | | (substance) | + + + + + + + | Performing | Address | City/State/Zipcode | Phone Number | | Organization | | | | + + + + + | [facility] | [address] | [place] [address] | | | LAB | | | | + + + + + RENAL FUNCTION SET (NA,K,CL,CO2,BUN,CREAT,GLUC,CA,PHOS,ALB ) (11/09/2018 4:38 AM PDT) + +---------+ + + + | Component | Value | Ref Range | Performed | Pathologist | | | | | At | Signature | + +---------+ + + + | GLUCOSE, | 106 (H) | 70 - 99 mg/dL | [facility] | | | PLASMA | | | [facility] | | | (LAB) | | | | | + +---------+ + + + | BUN, PLASMA | 30 (H) | 6 - 20 mg/dL | [...] + + | POTASSIUM, | 4.2 | 3.4 - 5.0 | [facility] | | | PLASMA | | mmol/L | [facility] | | | (LAB) | | | | | + +---------+ + + + | CHLORIDE, | 107 | 97 - 108 mmol/L | [facility] | | | PLASMA | | | [facility] | | | (LAB) | | | | | + +---------+ + + + | TOTAL CO2, | 27 | 21 - 32 mmol/L | [facility] | | | PLASMA | | | [facility] | | | (LAB) | | | | | + +---------+ + + + | CALCIUM, | 9.1 | 8.6 - 10.2 | [facility] | | | PLASMA | | mg/dL | [facility] | | | (LAB) | | | | | + +---------+ + + + | ALBUMIN, | 3.5 | 3.5 - 5.2 g/dL | [facility] | | | PLASMA | | | [facility] | | | (LAB) | | | | | + +---------+ + + + | PHOSPHORUS, | 3.6 | 2.4 - 4.7 mg/dL | [facility] | | | PLASMA | | | [facility] | | | (LAB) | | | | | + +---------+ + + + | EGFR | 49 (L) | >60 mL/min | [facility] | | | - | | | [facility] | | | ISRAELI | | | | | + +---------+ + + + | EGFR NON | 40 (L) | >60 mL/min | [facility] | | | -DOLORES | | | [facility] | | | RICAN | | | | | + +---------+ + + + | ANION GAP | 4 | 4 - 11 mmol/L | [facility] | | | | | | [facility] | | + +---------+ + + + | BUN/CREATIN | 18 | 8 - 25 | [facility] | [...] | + + + + + | [facility] | [address] | [place] [address] | | | LAB | | | | + + + + + BLOOD CULTURE ID PANEL PCR (11/08/2018 2:47 AM PDT) + + + + + + | Component | Value | Ref Range | Performed | Pathologist | | | | | At | Signature | + + + + + + | BCID MECA | Not Detected | Not Detected | [facility] | | | (METHICILLI | | | [facility] | | | N-RESISTANC | | | | | | E GENE) | | | | | + + + + + + | BCID | Not Detected | Not Detected | [facility] | | | ENTEROCOCCU | | | [facility] | | | S | | | | | + + + + + + | BCID | Not Detected | Not Detected | [facility] | | | LISTERIA | | | [facility] | | | MONOCYTOGEN | | | | | | ES | | | | | + + + + + + | BCID | Detected (A) | Not Detected | [facility] | | | STAPHYLOCOC | | | [facility] | | | CUS | | | | | + + + + + + | BCID | Not Detected | Not Detected | [facility] | | | STAPHYLOCOC | | | [facility] | | | CUS AUREUS | | | | | + + + + + + | BCID | Not Detected | Not Detected | [facility] | | | STREPTOCOCC | | | [facility] | | | US | | | | | + + + + + + | BCID | Not Detected | Not Detected | [facility] | | | STREPTOCOCC | | | [facility] | | | US | | | | | | AGALACTIAE | | | | | | (GROUP B) | | | | | + + + + + + | BCID | Not Detected | Not Detected | [facility] | | | STREPTOCOCC | | | [facility] | | | US | | | | | | PNEUMONIAE | | | | | + + + + + + | BCID | Not Detected | Not Detected | [facility] | | | STREPTOCOCC | | | [facility] | | | US PYOGENES | | | | | | (GROUP A) | | | | | + + + + + + | BCID | Not Detected | Not Detected | [facility] | | | ACINETOBACT | | | [facility] | | | ER | | | | | | BAUMANNII | | | | | + + + + + + | BCID | Not Detected | Not Detected | [facility] | | | ENTEROBACTE | | | [facility] | | | RIACEAE | | | | | + + + + + + | BCID | Not Detected | Not Detected | [facility] | | | ENTEROBACTE | | | [facility] | | | R CLOACAE | | | | | | COMPLEX | | | | | + + + + + + | BCID | Not Detected | Not Detected | [facility] | | | ESCHERICHIA | | | [facility] | | | COLI | | | | | + + + + + + | BCID | Not Detected | Not Detected | [facility] | | | KLEBSIELLA | | | [facility] | | | OXYTOCA | | | | | + + + + + + | BCID | Not Detected | Not Detected | [facility] | | | KLEBSIELLA | | | [facility] | | | PNEUMONIAE | | | | | + + + + + + | BCID | Not Detected | Not Detected | [facility] | | | PROTEUS | | | [facility] | | + + + + + + | BCID | Not Detected | Not Detected | [facility] | | | SERRATIA | | | [facility] | | | MARCESCENS | | | | | + + + + + + | BCID | Not Detected | Not Detected | [facility] | | | HAEMOPHILUS | | | [facility] | | | INFLUENZAE | | | | | + + + + + + | BCID | Not Detected | Not Detected | [facility] | | | NEISSERIA | | | [facility] | | | MENINGITIDI | | | | | | S | | | | | + + + + + + | BCID | Not Detected | Not Detected | [facility] | | | PSEUDOMONAS | | | [facility] | | | AERUGINOSA | | | | | + + + + + + | BCID | Not Detected | Not Detected | [facility] | | | BELÉN | | | [facility] | | | ALBICANS | | | | | + + + + + + | BCID | Not Detected | Not Detected | [facility] | | | BELÉN | | | [facility] | | | GLABRATA | | | | | + + + + + + | BCID | Not Detected | Not Detected | [facility] | | | BELÉN | | | [facility] | | | KRUSEI | | | | | + + + + + + | BCID | Not Detected | Not Detected | [facility] | | | BELÉN | | | [facility] | | | PARAPSILOSI | | | | | | S | | | | | + + + + + + | BCID | Not Detected | Not Detected | [facility] | | | BELÉN | | | [facility] | | | TROPICALIS | | | | | + + + + + + + + | Specimen | + + | Blood - Antecubital | | region structure | | (body structure) | + + + + + | Narrative | Performed At | + + + | NOTE: Antimicrobial resistance can occur via multiple mechanisms. A | | | Not Detected result for the ROCKI antimicrobial resistance gene | [facility] | | assays does not indicate antimicrobial susceptibility. Subculturing is | [facility] | | required for species identification and susceptibility testing of | | | isolates. | | + + + + + + + + | Performing | Address | City/State/Zipcode | Phone Number | | Organization | | | | + + + + + | [facility] | [address] | [place] [address] | | | LAB | | | | + + + + + CULTURE, BLOOD (11/08/2018 2:47 AM PDT) + + + + + + | Component | Value | Ref Range | Performed | Pathologist | | | | | At | Signature | + + + + + + | CULTURE | Staphylococcus | | [facility] | | | RESULT | epidermidis (AA)Comment: | | [facility] | | | BLOOD | Confirmed by Culture. | | | | + + + + + + | CULTURE | Staphylococcus species | | [facility] | | | RESULT | (AA)Comment: Identified | | [facility] | | | BLOOD | by Molecular method. | | | | + + + + + + | GRAM STAIN | Gram positive cocci in | | [facility] | | | | clusters (AA)Comment: | | [facility] | | | | This is an appended | | | | | | report. These results | | | | | | have been appended to a | | | | | | previously preliminary | | | | | | verified report. | | | | + + + + + + + + | Specimen | + + | Blood - Antecubital | | region structure | | (body structure) | + + + + +--------+ + | Organism | Antibiotic | Method | Susceptibility | + + +--------+ + | Staphylococcus | Penicillin | | Resistant | | epidermidis | | | | + + +--------+ + | Staphylococcus | Clindamycin | | <=0.25: Sensitive | | epidermidis | | | | + + +--------+ + | Staphylococcus | Erythromycin | | <=0.25: Sensitive | | epidermidis | | | | + + +--------+ + | Staphylococcus | Oxacillin | | <=0.25: Sensitive | | epidermidis | | | | + + +--------+ + | Staphylococcus | Rifampin | | <=0.5: Sensitive | | epidermidis | | | | + + +--------+ + | Staphylococcus | Tetracycline | | 2: Sensitive | | epidermidis | | | | + + +--------+ + | Staphylococcus | Trimethoprim/Sulfa | | <=10: Sensitive | | epidermidis | | | | + + +--------+ + | Staphylococcus | Vancomycin | | 2: Sensitive | | epidermidis | | | | + + +--------+ + + + + + + | Performing | Address | City/State/Zipcode | Phone Number | | Organization | | | | + + + + + | [facility] | [address] | [place] [address] | | | LAB | | | | + + + + + CULTURE, BLOOD (11/08/2018 2:42 AM PDT) + + + + + + | Component | Value | Ref Range | Performed | Pathologist | | | | | At | Signature | + + + + + + | CULTURE | Final Report:No Bacteria | | [facility] | | | RESULT | or Yeast isolated at 5 | | [facility] | | | BLOOD | days. | | | | + + + + + + + + | Specimen | + + | Blood - Antecubital | | region structure | | (body structure) | + + + + + + + | Performing | Address | City/State/Zipcode | Phone Number | | Organization | | | | + + + + + | [facility] | [address] | [place] [address] | | | LAB | | | | + + + + + CBC AND AUTO DIFF (11/08/2018 2:41 AM PDT) + + + + + + | Component | Value | Ref Range | Performed | Pathologist | | | | | At | Signature | + + + + + + | WHITE CELL | 12.00 (H) | 3.50 - 10.80 | [facility] | | | COUNT | | K/cu mm | [facility] | | + + + + + + | RED CELL | 3.04 (L) | 4.50 - 6.00 | [facility] | | | COUNT | | M/cu mm | [facility] | | + + + + + + | HEMOGLOBIN | 9.4 (L) | 13.5 - 17.5 | [facility] | | | | | g/dL | [facility] | | + + + + + + | HEMATOCRIT | 28.1 (L) | 41.0 - 53.0 % | [facility] | | | | | | [facility] | | + + + + + + | MCV | 92.7 | 80.0 - 100.0 fL | [facility] | | | | | | [facility] | | + + + + + + | MCH | 30.9 | 27.0 - 34.0 pg | [facility] | | | | | | [facility] | | + + + + + + | MCHC | 33.3 | 33.0 - 35.5 | [facility] | | | | | g/dL | [facility] | | + + + + + + | RDW | 13.5 | 11.5 - 14.5 % | [facility] | | | | | | [facility] | | + + + + + + | PLATELET | 194 | 150 - 400 K/cu | [facility] | | | COUNT | | mm | [facility] | | + + + + + + | MPV | 9.0 | 7.4 - 10.4 fL | [facility] | | | | | | [facility] | | + + + + + + | NEUTROPHIL | 79.1 (H) | 50.0 - 70.0 % | [facility] | | | % | | | [facility] | | + + + + + + | LYMPHOCYTE | 7.8 (L) | 18.0 - 42.0 % | [facility] | | | % | | | [facility] | | + + + + + + | MONOCYTE % | 11.4 (H) | 3.5 - 9.0 % | [facility] | | | | | | [facility] | | + + + + + + | EOS % | 1.2 | 0.0 - 3.0 % | [facility] | | | | | | [facility] | | + + + + + + | BASO % | 0.5 | 0.0 - 2.0 % | [facility] | | | | | | [facility] | | + + + + + + | NEUTROPHIL | 9.50 (H) | 1.80 - 7.70 | [facility] | | | # | | K/cu mm | [facility] | | + + + + + + | LYMPHOCYTE | 0.90 (L) | 1.00 - 4.80 | [facility] | | | # | | K/cu mm | [facility] | | + + + + + + | MONOCYTE # | 1.40 (H) | 0.10 - 0.90 | [facility] | | | | | K/cu mm | [facility] | | + + + + + + | EOS # | 0.10 | 0.00 - 0.50 | [facility] | [...] | + + + + + | [facility] | [address] | [place] [address] | | | LAB | | | | + + + + + RENAL FUNCTION SET (NA,K,CL,CO2,BUN,CREAT,GLUC,CA,PHOS,ALB ) (11/08/2018 2:41 AM PDT) + +---------+ + + + | Component | Value | Ref Range | Performed | Pathologist | | | | | At | Signature | + +---------+ + + + | GLUCOSE, | 122 (H) | 70 - 99 mg/dL | [facility] | | | PLASMA | | | [facility] | | | (LAB) | | | | | + +---------+ + + + | BUN, PLASMA | 27 (H) | 6 - 20 mg/dL | [facility] | | | (LAB) | | | [facility] | | + +---------+ + + + | CREATININE, | 1.8 (H) | 0.6 - 1.3 mg/dL | [facility] | | | PLASMA | | | [facility] | | + +---------+ + + + | SODIUM, | 135 (L) | 136 - 145 | [facility] | | | PLASMA | | mmol/L | [facility] | | | (LAB) | | | | | + +---------+ + + + | POTASSIUM, | 4.0 | 3.4 - 5.0 | [facility] | | | PLASMA | | mmol/L | [facility] | | | (LAB) | | | | | + +---------+ + + + | CHLORIDE, | 103 | 97 - 108 mmol/L | [facility] | | | PLASMA | | | [facility] | | | (LAB) | | | | | + +---------+ + + + | TOTAL CO2, | 25 | 21 - 32 mmol/L | [facility] | | | PLASMA | | | [facility] | | | (LAB) | | | | | + +---------+ + + + | CALCIUM, | 8.8 | 8.6 - 10.2 | [facility] | | | PLASMA | | mg/dL | [facility] | | | (LAB) | | | | | + +---------+ + + + | ALBUMIN, | 3.6 | 3.5 - 5.2 g/dL | [facility] | | | PLASMA | | | [facility] | | | (LAB) | | | | | + +---------+ + + + | PHOSPHORUS, | 2.8 | 2.4 - 4.7 mg/dL | [facility] | | | PLASMA | | | [facility] | | | (LAB) | | | | | + +---------+ + + + | EGFR | 46 (L) | >60 mL/min | [facility] | | | - | | | [facility] | | | [place]I | | | | | + +---------+ + + + | EGFR NON | 38 (L) | >60 mL/min | [facility] | | | -DOLORES | | | [facility] | | | RICAN | | | | | + +---------+ + + + | ANION GAP | 7 | 4 - 11 mmol/L | [facility] | | | | | | [facility] | | + +---------+ + + + | BUN/CREATIN | 15 | 8 - 25 | [facility] | [...] | + + + + + | [facility] | [address] | [place] [address] | | | LAB | | | | + + + + + MAGNESIUM, PLASMA (11/08/2018 2:41 AM PDT) + +-------+ + + + | Component | Value | Ref Range | Performed | Pathologist | | | | | At | Signature | + +-------+ + + + | MAGNESIUM,P | 1.8 | 1.6 - 2.6 mg/dL | [facility] | | | LASMA | | | [facility] | | + +-------+ + + + + + | Specimen | + + | Blood - Blood | | (substance) | + + + + + + + | Performing | Address | City/State/Zipcode | Phone Number | | Organization | | | | + + + + + | [facility] | [address] | [place] [address] | | | LAB | | | | + + + + + INR (11/08/2018 2:41 AM PDT) + + + + + [...] - 3.0) INR INR for most | [facility] | | patients with mech. valves (2.5 - 3.5) INR | [facility] | + + + + + + + + | Performing | Address | City/State/Zipcode | Phone Number | | Organization | | | | + + + + + | [facility] | [address] | [place] [address] | | | LAB | | | | + + + + + RESPIRATORY PATHOGEN PANEL PCR (11/08/2018 12:19 AM PDT) + + + + + + | Component | Value | Ref Range | Performed | Pathologist | | | | | At | Signature | + + + + + + | ADENOVIRUS | Not Detected | Not Detected | [facility] | | | PCR | | | [facility] | | + + + + + + | CORONAVIRUS | Not Detected | Not Detected | [facility] | | | 229E PCR | | | [facility] | | + + + + + + | CORONAVIRUS | Not Detected | Not Detected | [facility] | | | HKU1 PCR | | | [facility] | | + + + + + + | CORONAVIRUS | Not Detected | Not Detected | [facility] | | | NL63 PCR | | | [facility] | | + + + + + + | CORONAVIRUS | Not Detected | Not Detected | [facility] | | | OC43 PCR | | | [facility] | | + + + + + + | METAPNEUMOV | Not Detected | Not Detected | [facility] | | | IRUS PCR | | | [facility] | | + + + + + + | RHINOVIRUS/ | Not Detected | Not Detected | [facility] | | | ENTEROVIRUS | | | [facility] | | | PCR | | | | | + + + + + + | INFLUENZA A | Not Detected | | [facility] | | | PCR | | | [facility] | | + + + + + + | INFLUENZA A | | | [facility] | | | SUBTYPE H1 | | | [facility] | | | PCR | | | | | + + + + + + | INFLUENZA A | | | [facility] | | | H1-2009 | | | [facility] | | | PCR | | | | | + + + + + + | INFLUENZA A | | | [facility] | | | H3 PCR | | | [facility] | | + + + + + + | INFLUENZA B | Not Detected | Not Detected | [facility] | | | PCR | | | [facility] | | + + + + + + | PARAINFLUEN | Not Detected | Not Detected | [facility] | | | ZA 1 PCR | | | [facility] | | + + + + + + | PARAINFLUEN | Not Detected | Not Detected | [facility] | | | ZA 2 PCR | | | [facility] | | + + + + + + | PARAINFLUEN | Not Detected | Not Detected | [facility] | | | ZA 3 PCR | | | [facility] | | + + + + + + | PARAINFLUEN | Not Detected | Not Detected | [facility] | | | ZA 4 PCR | | | [facility] | | + + + + + + | RSV PCR | Not Detected | Not Detected | [facility] | | | | | | [facility] | | + + + + + + | BORDETELLA | Not Detected | Not Detected | [facility] | | | PERTUSSIS | | | [facility] | | | PCR | | | | | + + + + + + | CHLAMYDOPHI | Not Detected | Not Detected | [facility] | | | LA | | | [facility] | | | PNEUMONIAE | | | | | | PCR | | | | | + + + + + + | MYCOPLASMA | Not Detected | Not Detected | [facility] | | | PNEUMONIAE | | | [facility] | | | PCR | | | | | + + + + + + | BORDETELLA | Not Detected | Not Detected | [facility] | | | PARAPERTUSS | | | [facility] | | | IS PCR | | | | | + + + + + + + + | Specimen | + + | Swab - Nasopharynx | + + + + + + + | Performing | Address | City/State/Zipcode | Phone Number | | Organization | | | | + + + + + | [facility] | [address] | [place] [address] | | | LAB | | | | + + + + + VIDHI BRISENO (11/08/2018 12:18 AM PDT) + + + + + + | Component | Value | Ref Range | Performed | Pathologist | | | | | At | Signature | + + + + + + | COLOR(UR) | Straw | Colorless, | [facility] | | | | | Straw, Yellow, | [facility] | | | | | [place] | | | + + + + + + | APPEARANCE | Clear | Clear | [facility] | | | | | | [facility] | | + + + + + + | GLUCOSE(UR) | Negative | Negative mg/dL | [facility] | | | | | | [facility] | | + + + + + + | PROTEIN(LAB | Negative | Negative mg/dL | [facility] | | | ) | | | [facility] | | + + + + + + | BILIRUBIN | Negative | Negative | [facility] | | | | | | [facility] | | + + + + + + | UROBILINOGE | Normal | Normal mg/dL | [facility] | | | N | | | [facility] | | + + + + + + | PH(UR) | 6.0 | 5.0 - 9.0 | [facility] | | | | | | [facility] | | + + + + + + | BLOOD | Small (A) | Negative | [facility] | | | | | | [facility] | | + + + + + + | KETONES | Negative | Negative mg/dL | [facility] | | | | | | [facility] | | + + + + + + | NITRITES | Negative | Negative | [facility] | | | | | | [facility] | | + + + + + + | LEUKOCYTE | Negative | Negative | [facility] | | | ESTERASE | | | [facility] | | + + + + + + | SPECIFIC | 1.004 | 1.003 - 1.029 | [facility] | | | GRAVITY | | | [facility] | | + + + + + + + + | Specimen | + + | Urine | + + + + + + + | Performing | Address | City/State/Zipcode | Phone Number | | Organization | | | | + + + + + | [facility] | [address] | [place] [address] | | | LAB | | | | + + + + + URINE, MICROSCOPIC EXAM (11/08/2018 12:18 AM PDT) + +---------+ + + + | Component | Value | Ref Range | Performed | Pathologist | | | | | At | Signature | + +---------+ + + + | RED CELLS | <1 | 0 - 5 /hpf | [facility] | | | | | | [facility] | | + +---------+ + + + | WHITE CELLS | <1 | 0 - 5 /hpf | [facility] | | | | | | [facility] | | + +---------+ + + + | BACTERIA | Few (A) | None /hpf | [facility] | | | | | | [facility] | | + +---------+ + + + | YEAST (LAB) | | | [facility] | | | | | | [facility] | | + +---------+ + + + | MUCOUS | Few | None, Few /hpf | [facility] | | | | | | [facility] | | + +---------+ + + + | TRICHOMONAS | | | [facility] | | | | | | [facility] | | + +---------+ + + + | TRIPLE P04 | | | [facility] | | | CRYSTALS | | | [facility] | | + +---------+ + + + | CALCIUM | | | [facility] | | | OXALATE | | | [facility] | | | PHYLICIA | | | | | + +---------+ + + + | URIC ACID | | | [facility] | | | CRYSTALS | | | [facility] | | + +---------+ + + + | AMORPHOUS | | | [facility] | | | CRYSTALS | | | [facility] | | + +---------+ + + + + + | Specimen | + + | Urine - Urine | | (substance) | + + + + + | Narrative | Performed At | + + + | Color: Straw Clarity: Clear | | | | [facility] | | | [facility] | + + + + + + + + | Performing | Address | City/State/Zipcode | Phone Number | | Organization | | | | + + + + + | [facility] | [address] | [place] [address] | | | LAB | | | | + + + + + URINE SCREEN FOR CULTURE (11/08/2018 12:18 AM PDT) + + + + + + | Component | Value | Ref Range | Performed | Pathologist | | | | | At | Signature | + + + + + + | URINE | Negative | Negative | [facility] | | | SCREEN FOR | | | [facility] | | | CULTURE | | | | | + + + + + + + + | Specimen | + + | Urine - Urine | | (substance) | + + + + + | Narrative | Performed At | + + + | Culture Screen Negative. Culture not indicated. | | | | [facility] | | | [facility] | + + + + + + + + | Performing | Address | City/State/Zipcode | Phone Number | | Organization | | | | + + + + + | [facility] | [address] | [place] [address] | | | LAB | | | | + + + + + X-RAY CHEST 2 VIEW (11/08/2018 12:05 AM PDT) + + | Specimen | + + | | + + + + + | Narrative | Performed At | + + + | EXAM DESCRIPTION: X-RAY CHEST 2 VIEW CLINICAL HISTORY: Postop | [facility] | | fever. COMPARISON: Scoliosis radiographs 09/13/2018 | RADIOLOGY VOICE | | TECHNIQUE: Frontal and lateral views of the chest. 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 There is stable sternotomy | | | wires. There is persistent elevation of the right hemidiaphragm. | | | There is mild linear atelectasis or scar at the right mid lung. There | | | is minimal blunting at the left costophrenic angle. There is no | | | pneumothorax. No acute osseous abnormality is seen. IMPRESSION: | | | Minimal right midlung atelectasis or scar. Questionable trace left | | | pleural effusion. Signed By: Jarred Dang On 11/08/2018 | | | 08:51:57 | | + + + + --------+ | Procedure Note | + --------+ | Service Account, RemitDATAant Res In Interface - 11/08/2018 8:55 AM PDT EXAM | | DESCRIPTION:X-RAY CHEST 2 VIEW CLINICAL HISTORY:Postop fever. COMPARISON:Scoliosis | | radiographs 09/13/2018 TECHNIQUE:Frontal and lateral views of the chest. FINDINGS: There | | is a stable prosthetic cardiac valve. There is stable sternotomy wires. There is | | persistentelevation of the right hemidiaphragm. There is mild linear atelectasis or scar | | at the right midlung. There is minimal blunting at the left costophrenic angle. There | | is no pneumothorax. No acuteosseous abnormality is seen. IMPRESSION: Minimal right | | midlung atelectasis or scar. Questionable trace left pleural effusion. Signed By: | | Jarred Dang On 11/08/2018 08:51:57 | |TECHNIQUE: | |Frontal and lateral views of the chest. 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 There is stable sternotomy wires. There is pers istent | |elevation of the right hemidiaphragm. There is mild linear atelectasis or scar at the right mid | |lung. There is minimal blunting at the left costophrenic angle. There is no pneumothorax. N o acute | |osseous abnormality is seen. | | | |IMPRESSION: | | | |Minimal right midlung atelectasis or scar. Questionable trace left pleural effusion. | | | | | |Signed By: Jarred Dang On 11/08/2018 08:51:57 | + --------+ + + + + + | Performing | Address | City/State/Zipcode | Phone Number | | Organization | | | | + + + + + | [facility] | [address] | [place] [address] | [phone] | | VOICE RECOGNITION | | | | + + + + + HEPARIN, EITHER STANDARD / LMW, BLOOD (11/07/2018 9:53 AM PDT) + +-------+ + + + | Component | Value | Ref Range | Performed | Pathologist | | | | | At | Signature | + +-------+ + + + | HEPARIN, | 0.21 | U/mL | [facility] | | | STD LMW | | | [facility] | | + +-------+ + + + + + | Specimen | + + | Blood - Blood | | (substance) | + + + + + | Narrative | Performed At | + + + | Heparin, Either STD/LMW - Therapeutic Ranges: Heparin, | | | Unfractionated: 0.35 - 0.70 U/mL Enoxaparin, LMWH: 0.70 | [facility] | | - 1.20 U/mL Dalteparin, LMWH: 0.70 - 1.20 U/mL | [facility] | | Tinzaparin, LMWH: Therapeutic range not established. | | | Preliminary studies suggest range | | | similar to dalteparin. Clinical | | | correlation required. | | | Heparin levels may be unreliable for: | | | Total bilirubin >28.8 mg/dL | | | Triglycerides >690 mg/dL | | | or Moderate to Gross Hemolysis | | + + + + + + + + | Performing | Address | City/State/Zipcode | Phone Number | | Organization | | | | + + + + + | [facility] | [address] | [place] [address] | | | LAB | | | | + + + + + GLUCOSE, POC (11/07/2018 6:48 AM PDT) + +---------+ + + + | Component | Value | Ref Range | Performed | Pathologist | | | | | At | Signature | + +---------+ + + + | BLOOD | 108 (H) | 60 - 99 mg/dL | [facility] | | | GLUCOSE, | | | INPATIENT - | | | POC | | | POINT OF | | | | | | CARE | | + +---------+ + + + + + | Specimen | + + | Blood | + + + +---------+ + + | Performing | Address | City/State/Zipcode | Phone Number | | Organization | | | | + +---------+ + + | [facility] | | | | | - POINT OF CARE | | | | + +---------+ + + CBC AND AUTO DIFF (11/07/2018 4:12 AM PDT) + + + + + + | Component | Value | Ref Range | Performed | Pathologist | | | | | At | Signature | + + + + + + | WHITE CELL | 10.40 | 3.50 - 10.80 | [facility] | | | COUNT | | K/cu mm | [facility] | | + + + + + + | RED CELL | 3.29 (L) | 4.50 - 6.00 | [facility] | | | COUNT | | M/cu mm | [facility] | | + + + + + + | HEMOGLOBIN | 10.3 (L) | 13.5 - 17.5 | [facility] | | | | | g/dL | [facility] | | + + + + + + | HEMATOCRIT | 30.5 (L) | 41.0 - 53.0 % | [facility] | | | | | | [facility] | | + + + + + + | MCV | 92.6 | 80.0 - 100.0 fL | [facility] | | | | | | [facility] | | + + + + + + | MCH | 31.3 | 27.0 - 34.0 pg | [facility] | | | | | | [facility] | | + + + + + + | MCHC | 33.8 | 33.0 - 35.5 | [facility] | | | | | g/dL | [facility] | | + + + + + + | RDW | 13.6 | 11.5 - 14.5 % | [facility] | | | | | | [facility] | | + + + + + + | PLATELET | 215 | 150 - 400 K/cu | [facility] | | | COUNT | | mm | [facility] | | + + + + + + | MPV | 8.7 | 7.4 - 10.4 fL | [facility] | | | | | | [facility] | | + + + + + + | NEUTROPHIL | 75.4 (H) | 50.0 - 70.0 % | [facility] | | | % | | | [facility] | | + + + + + + | LYMPHOCYTE | 12.0 (L) | 18.0 - 42.0 % | [facility] | | | % | | | [facility] | | + + + + + + | MONOCYTE % | 10.1 (H) | 3.5 - 9.0 % | [facility] | | | | | | [facility] | | + + + + + + | EOS % | 2.2 | 0.0 - 3.0 % | [facility] | | | | | | [facility] | | + + + + + + | BASO % | 0.3 | 0.0 - 2.0 % | [facility] | | | | | | [facility] | | + + + + + + | NEUTROPHIL | 7.80 (H) | 1.80 - 7.70 | [facility] | | | # | | K/cu mm | [facility] | | + + + + + + | LYMPHOCYTE | 1.20 | 1.00 - 4.80 | [facility] | | | # | | K/cu mm | [facility] | | + + + + + + | MONOCYTE # | 1.00 (H) | 0.10 - 0.90 | [facility] | | | | | K/cu mm | [facility] | | + + + + + + | EOS # | 0.20 | 0.00 - 0.50 | [facility] | | | | | K/cu mm | [facility] | | + + + + + + | BASO # | 0.00 | 0.00 - 0.10 | [facility] | [...] | + + + + + | [facility] | [address] | [place] [address] | | | LAB | | | | + + + + + MAGNESIUM, PLASMA (11/07/2018 4:12 AM PDT) + +-------+ + + + | Component | Value | Ref Range | Performed | Pathologist | | | | | At | Signature | + +-------+ + + + | MAGNESIUM,P | 1.7 | 1.6 - 2.6 mg/dL | [facility] | | | LASMA | | | [facility] | | + +-------+ + + + + + | Specimen | + + | Blood - Blood | | (substance) | + + + + + + + | Performing | Address | City/State/Zipcode | Phone Number | | Organization | | | | + + + + + | [facility] | [address] | [place] [address] | | | LAB | | | | + + + + + RENAL FUNCTION SET (NA,K,CL,CO2,BUN,CREAT,GLUC,CA,PHOS,ALB ) (11/07/2018 4:12 AM PDT) + +---------+ + + + | Component | Value | Ref Range | Performed | Pathologist | | | | | At | Signature | + +---------+ + + + | GLUCOSE, | 104 (H) | 70 - 99 mg/dL | [facility] | | | PLASMA | | | [facility] | | | (LAB) | | | | | + +---------+ + + + | BUN, PLASMA | 22 (H) | 6 - 20 mg/dL | [facility] | | | (LAB) | | | [facility] | | + +---------+ + + + | CREATININE, | 1.5 (H) | 0.6 - 1.3 mg/dL | [facility] | | | PLASMA | | | [facility] | | + +---------+ + + + | SODIUM, | 136 | 136 - 145 | [facility] | | | PLASMA | | mmol/L | [facility] | | | (LAB) | | | | | + +---------+ + + + | POTASSIUM, | 3.9 | 3.4 - 5.0 | [facility] | | | PLASMA | | mmol/L | [facility] | | | (LAB) | | | | | + +---------+ + + + | CHLORIDE, | 102 | 97 - 108 mmol/L | [facility] | | | PLASMA | | | [facility] | | | (LAB) | | | | | + +---------+ + + + | TOTAL CO2, | 25 | 21 - 32 mmol/L | [facility] | | | PLASMA | | | [facility] | | | (LAB) | | | | | + +---------+ + + + | CALCIUM, | 9.0 | 8.6 - 10.2 | [facility] | | | PLASMA | | mg/dL | [facility] | | | (LAB) | | | | | + +---------+ + + + | ALBUMIN, | 3.9 | 3.5 - 5.2 g/dL | [facility] | | | PLASMA | | | [facility] | | | (LAB) | | | | | + +---------+ + + + | PHOSPHORUS, | 4.1 | 2.4 - 4.7 mg/dL | [facility] | | | PLASMA | | | [facility] | | | (LAB) | | | | | + +---------+ + + + | EGFR | 56 (L) | >60 mL/min | [facility] | | | - | | | [facility] | | | [place] | | | | | + +---------+ + + + | EGFR NON | 47 (L) | >60 mL/min | [facility] | | | -DOLORES | | | [facility] | | | [facility] | | | | | + +---------+ + + + | ANION GAP | 9 | 4 - 11 mmol/L | [facility] | | | | | | [facility] | | + +---------+ + + + | BUN/CREATIN | 15 | 8 - 25 | [facility] | [...] | + + + + + | [facility] | [address] | [place] [address] | | | LAB | | | | + + + + + HEPARIN, EITHER STANDARD / LMW, BLOOD (11/07/2018 4:12 AM PDT) + +-------+ + + + | Component | Value | Ref Range | Performed | Pathologist | | | | | At | Signature | + +-------+ + + + | HEPARIN, | 0.12 | U/mL | [facility] | | | STD LMW | | | [facility] | | + +-------+ + + + + + | Specimen | + + | Blood - Blood | | (substance) | + + + + + | Narrative | Performed At | + + + | Heparin, Either STD/LMW - Therapeutic Ranges: Heparin, | | | Unfractionated: 0.35 - 0.70 U/mL Enoxaparin, LMWH: 0.70 | [facility] | | - 1.20 U/mL Dalteparin, LMWH: 0.70 - 1.20 U/mL | [facility] | | Tinzaparin, LMWH: Therapeutic range not established. | | | Preliminary studies suggest range | | | similar to dalteparin. Clinical | | | correlation required. | | | Heparin levels may be unreliable for: | | | Total bilirubin >28.8 mg/dL | | | Triglycerides >690 mg/dL | | | or Moderate to Gross Hemolysis | | + + + + + + + + | Performing | Address | City/State/Zipcode | Phone Number | | Organization | | | | + + + + + | [facility] | [address] | [place] [address] | | | LAB | | | | + + + + + INR (11/07/2018 4:12 AM PDT) + + + + + + | Component | Value | Ref Range | Performed | Pathologist | | | | | At | Signature | + + + + + + | INR | 1.24 (H) | 0.90 - 1.20 INR | [facility] | | | | | | [facility] | | + + + + + + | PROTHROMBIN | 15.5 (H) | 11.8 - 14.7 sec | [...] - 3.0) INR INR for most | [facility] | | patients with mech. valves (2.5 - 3.5) INR | [facility] | + + + + + + + + | Performing | Address | City/State/Zipcode | Phone Number | | Organization | | | | + + + + + | [facility] | [address] | [place] [address] | | | LAB | | | | + + + + + GLUCOSE, POC (11/06/2018 9:18 PM PDT) + +---------+ + + + | Component | Value | Ref Range | Performed | Pathologist | | | | | At | Signature | + +---------+ + + + | BLOOD | 121 (H) | 60 - 99 mg/dL | [facility] | | | GLUCOSE, | | | INPATIENT - | | | POC | | | POINT OF | | | | | | CARE | | + +---------+ + + + + + | Specimen | + + | Blood | + + + +---------+ + + | Performing | Address | City/State/Zipcode | Phone Number | | Organization | | | | + +---------+ + + | [facility] | | | | | - POINT OF CARE | | | | + +---------+ + + GLUCOSE, POC (11/06/2018 6:23 PM PDT) + +---------+ + + + | Component | Value | Ref Range | Performed | Pathologist | | | | | At | Signature | + +---------+ + + + | BLOOD | 102 (H) | 60 - 99 mg/dL | [facility] | | | GLUCOSE, | | | INPATIENT - | | | POC | | | POINT OF | | | | | | CARE | | + +---------+ + + + + + | Specimen | + + | Blood | + + + +---------+ + + | Performing | Address | City/State/Zipcode | Phone Number | | Organization | | | | + +---------+ + + | [facility] | | | | | - POINT OF CARE | | | | + +---------+ + + CBC (HEMOGRAM) ONLY (11/06/2018 2:32 PM PDT) + + + + + + | Component | Value | Ref Range | Performed | Pathologist | | | | | At | Signature | + + + + + + | WHITE CELL | 13.00 (H) | 3.50 - 10.80 | [facility] | | | COUNT | | K/cu mm | [facility] | | + + + + + + | RED CELL | 3.56 (L) | 4.50 - 6.00 | [facility] | | | COUNT | | M/cu mm | [facility] | | + + + + + + | HEMOGLOBIN | 10.8 (L) | 13.5 - 17.5 | [facility] | | | | | g/dL | [facility] | | + + + + + + | HEMATOCRIT | 33.0 (L) | 41.0 - 53.0 % | [facility] | | | | | | [facility] | | + + + + + + | MCV | 92.8 | 80.0 - 100.0 fL | [facility] | | | | | | [facility] | | + + + + + + | MCH | 30.5 | 27.0 - 34.0 pg | [facility] | | | | | | [facility] | | + + + + + + | MCHC | 32.9 (L) | 33.0 - 35.5 | [facility] | | | | | g/dL | [facility] | | + + + + + + | RDW | 13.8 | 11.5 - 14.5 % | [facility] | | | | | | [facility] | | + + + + + + | PLATELET | 217 | 150 - 400 K/cu | [facility] | | | COUNT | | mm | [facility] | | + + + + + + | MPV | 8.2 | 7.4 - 10.4 fL | [facility] | | | | | | [facility] | | + + + + + + + + | Specimen | + + | Blood - Blood | | (substance) | + + + + + | Narrative | Performed At | + + + | No reflex rules apply to this test. | | | | [facility] | | | [facility] | + + + + + + + + | Performing | Address | City/State/Zipcode | Phone Number | | Organization | | | | + + + + + | [facility] | [address] | [place] [address] | | | LAB | | | | + + + + + APTT (ACT. PART. THROMBO TIME) (11/06/2018 2:32 PM PDT) + +-------+ + + + | Component | Value | Ref Range | Performed | Pathologist | | | | | At | Signature | + +-------+ + + + | APTT | 29.3 | 26.0 - 36.0 | [facility] | | | | | seconds | [facility] | | + +-------+ + + + + + | Specimen | + + | Blood - Blood | | (substance) | + + + + + | Narrative | Performed At | + + + | APTT values for monitoring heparin therapy may be affected by | | | specimens processed >1 hour after collection. APTT Therapeutic | [facility] | | Range: (70 - 115) sec Heparin | [facility] | | levels of 0.35 - 0.7 U/mL | | + + + + + + + + | Performing | Address | City/State/Zipcode | Phone Number | | Organization | | | | + + + + + | [facility] | [address] | [place] [address] | | | LAB | | | | + + + + + HEPARIN, EITHER STANDARD / LMW, BLOOD (11/06/2018 2:32 PM PDT) + +-------+ + + + | Component | Value | Ref Range | Performed | Pathologist | | | | | At | Signature | + +-------+ + + + | HEPARIN, | 0.18 | U/mL | [facility] | | | STD LMW | | | [facility] | | + +-------+ + + + + + | Specimen | + + | Blood - Blood | | (substance) | + + + + + | Narrative | Performed At | + + + | Heparin, Either STD/LMW - Therapeutic Ranges: Heparin, | | | Unfractionated: 0.35 - 0.70 U/mL Enoxaparin, LMWH: 0.70 | [facility] | | - 1.20 U/mL Dalteparin, LMWH: 0.70 - 1.20 U/mL | [facility] | | Tinzaparin, LMWH: Therapeutic range not established. | | | Preliminary studies suggest range | | | similar to dalteparin. Clinical | | | correlation required. | | | Heparin levels may be unreliable for: | | | Total bilirubin >28.8 mg/dL | | | Triglycerides >690 mg/dL | | | or Moderate to Gross Hemolysis | | + + + + + + + + | Performing | Address | City/State/Zipcode | Phone Number | | Organization | | | | + + + + + | [facility] | [address] | [place] [address] | | | LAB | | | | + + + + + MAGNESIUM, PLASMA (11/06/2018 2:32 PM PDT) + +-------+ + + + | Component | Value | Ref Range | Performed | Pathologist | | | | | At | Signature | + +-------+ + + + | MAGNESIUM,P | 1.8 | 1.6 - 2.6 mg/dL | [facility] | | | LASMA | | | [facility] | | + +-------+ + + + + + | Specimen | + + | Blood - Blood | | (substance) | + + + + + + + | Performing | Address | City/State/Zipcode | Phone Number | | Organization | | | | + + + + + | [facility] | [address] | [place] [address] | | | LAB | | | | + + + + + RENAL FUNCTION SET (NA,K,CL,CO2,BUN,CREAT,GLUC,CA,PHOS,ALB ) (11/06/2018 2:32 PM PDT) + +---------+ + + + | Component | Value | Ref Range | Performed | Pathologist | | | | | At | Signature | + +---------+ + + + | GLUCOSE, | 123 (H) | 70 - 99 mg/dL | [facility] | | | PLASMA | | | [facility] | | | (LAB) | | | | | + +---------+ + + + | BUN, PLASMA | 23 (H) | 6 - 20 mg/dL | [facility] | | | (LAB) | | | [facility] | | + +---------+ + + + | CREATININE, | 1.5 (H) | 0.6 - 1.3 mg/dL | [facility] | | | PLASMA | | | [facility] | | + +---------+ + + + | SODIUM, | 136 | 136 - 145 | [facility] | | | PLASMA | | mmol/L | [facility] | | | (LAB) | | | | | + +---------+ + + + | POTASSIUM, | 4.5 | 3.4 - 5.0 | [facility] | | | PLASMA | | mmol/L | [facility] | | | (LAB) | | | | | + +---------+ + + + | CHLORIDE, | 104 | 97 - 108 mmol/L | [facility] | | | PLASMA | | | [facility] | | | (LAB) | | | | | + +---------+ + + + | TOTAL CO2, | 25 | 21 - 32 mmol/L | [facility] | | | PLASMA | | | [facility] | | | (LAB) | | | | | + +---------+ + + + | CALCIUM, | 9.4 | 8.6 - 10.2 | [facility] | | | PLASMA | | mg/dL | [facility] | | | (LAB) | | | | | + +---------+ + + + | ALBUMIN, | 4.3 | 3.5 - 5.2 g/dL | [facility] | | | PLASMA | | | [facility] | | | (LAB) | | | | | + +---------+ + + + | PHOSPHORUS, | 3.9 | 2.4 - 4.7 mg/dL | [facility] | | | PLASMA | | | [facility] | | | (LAB) | | | | | + +---------+ + + + | EGFR | 56 (L) | >60 mL/min | [facility] | | | - | | | [facility] | | | [place] | | | | | + +---------+ + + + | EGFR NON | 47 (L) | >60 mL/min | [facility] | | | -DOLORES | | | [facility] | | | [facility] | | | | | + +---------+ + + + | ANION GAP | 7 | 4 - 11 mmol/L | [facility] | | | | | | [facility] | | + +---------+ + + + | BUN/CREATIN | 15 | 8 - 25 | [facility] | [...] Disease Education Program. Estimated GFR Interpretive | [facility] | | Information: <60 mL/min/1.73 sq m [...] | + + + + + | [facility] | [address] | [place] [address] | | | LAB | | | | + + + + + GLUCOSE, POC (11/06/2018 1:45 PM PDT) + +---------+ + + + | Component | Value | Ref Range | Performed | Pathologist | | | | | At | Signature | + +---------+ + + + | BLOOD | 118 (H) | 60 - 99 mg/dL | [facility] | | | GLUCOSE, | | | INPATIENT - | | | POC | | | POINT OF | | | | | | CARE | | + +---------+ + + + + + | Specimen | + + | Blood | + + + +---------+ + + | Performing | Address | City/State/Zipcode | Phone Number | | Organization | | | | + +---------+ + + | [facility] | | | | | - POINT OF CARE | | | | + +---------+ + + X-RAY FLUOROSCOPY > 1 HOUR (11/06/2018 11:05 AM PDT) + + | Specimen | + + | | + + + + + | Narrative | Performed At | + + + | - At the time of the study, no professional interpretation was | [facility] | | requested. - | RADIOLOGY | + + + + + + + + | Performing | Address | City/State/Zipcode | Phone Number | | Organization | | | | + + + + + | [facility] | [address] | [place] [address] | [phone] | + + + + + X-RAY SPINE LUMBOSACRAL 2 VIEWS (11/06/2018 11:01 AM PDT) + + | Specimen | + + | | + + + + + | Narrative | Performed At | + + + | - At the time of the study, no professional interpretation was | [facility] | | requested. - | RADIOLOGY | + + + + + + + + | Performing | Address | City/State/Zipcode | Phone Number | | Organization | | | | + + + + + | [facility] | [address] | [place] [address] | [phone] | + + + + + CARDIOLOGY (11/06/2018 12:00 AM PDT) + + + | Narrative | Performed At | + + + | | | + + + documented in this encounter Visit Diagnoses + + | Diagnosis | + + | History of mitral valve replacement with mechanical valve - Primary Heart valve | | replaced by other means | + + | Kyphosis, unspecified kyphosis type, unspecified spinal region | + + | Lumbar radiculopathy Thoracic or lumbosacral neuritis or radiculitis, unspecified | + + | Lumbar spondylosis Lumbosacral spondylosis without myelopathy | + + | Lumbar degenerative disc disease Degeneration of lumbar or lumbosacral intervertebral | | disc | + + | Spondylolisthesis of lumbar region Acquired spondylolisthesis | + + | Lumbar foraminal stenosis Spinal stenosis, lumbar region, without neurogenic | | claudication | + + | H/O mitral valve replacement Heart valve replaced by other means | + + | CKD (chronic kidney disease), stage III (HCC) Chronic kidney disease, Stage III | | (moderate) | + + | S/P lumbar fusion Arthrodesis status | + + | Essential hypertension | + + | Chronic bilateral low back pain with bilateral sciatica | + + documented in this encounter Administered Medications + +--------+ + +------+------+ | Medication Order | MAR | Action | Dose | Rate | Site | | | Action | Date | | | | + +--------+ + +------+------+ | acetaminophen (TYLENOL) tablet | Given | 11/07/19 | 1,000 mg | | | | 1,000 mg 1,000 mg, oral, | | 19 6:23 | | | | | PREPROCEDURE ONCE, 1 dose, | | AM PDT | | | | | Starting Sun11/06/18 at 0613, | | | | | | | Until Sun11/06/18 at 06 | | | | | | + +--------+ + +------+------+ +---+---+ | | | +---+---+ + +-------+ + +---+---+ | acetaminophen (TYLENOL) tablet | Given | 11/10/19 | 1,000 mg | | | | 1,000 mg 1,000 mg, oral, EVERY 6 | | 19 11:32 | | | | | HOURS, First dose on Sun11/06/18 | | AM PDT | | | | | at 1600, Until Discontinued | | | | | | + +-------+ + +---+---+ +-------+ + +---+---+ | Given | 11/10/19 | 1,000 mg | | | | | 19 5:40 | | | | | | AM PDT | | | | +-------+ + +---+---+ | Given | 11/09/19 | 1,000 mg | | | | | 19 9:07 | | | | | | PM PDT | | | | +-------+ + +---+---+ +---+---+ | | | +---+---+ + +-------+ +-------+---+---+ | atorvastatin (LIPITOR) tablet | Given | 11/09/19 | 20 mg | | | | 20 mg 20 mg, oral, EVERY | | 19 9:08 | | | | | EVENING, First dose on Sun | | PM PDT | | | | | 11/06/18 at 2100, Until | | | | | | | Discontinued | | | | | | + +-------+ +-------+---+---+ +-------+ +-------+---+---+ | Given | 11/08/19 | 20 mg | | | | | 19 8:57 | | | | | | PM PDT | | | | +-------+ +-------+---+---+ | Given | 11/07/19 | 20 mg | | | | | 19 8:54 | | | | | | PM PDT | | | | +-------+ +-------+---+---+ +---+---+ | | | +---+---+ + +-------+ +-------+---+---+ | baclofen (LIORESAL) tablet 20 | Given | 10/04/20 | 20 mg | | | | mg 20 mg, oral, EVERY EVENING, | | 19 9:08 | | | | | First dose on Sun11/06/18 at | | PM PDT | | | | | 2100, Until Discontinued | | | | | | + +-------+ +-------+---+---+ +-------+ +-------+---+---+ | Given | 11/08/19 | 20 mg | | | | | 19 8:58 | | | | | | PM PDT | | | | +-------+ +-------+---+---+ | Given | 11/07/19 | 20 mg | | | | | 19 8:53 | | | | | | PM PDT | | | | +-------+ +-------+---+---+ +---+---+ | | | +---+---+ + +---------+ +--------+-------+---+ | clindamycin (CLEOCIN) IV 600 | New Bag | 11/08/19 | 600 mg | 100 | | | mg IN D5W (RTU) 600 mg, | | 19 8:06 | | mL/hr | | | intravenous, EVERY 8 HOURS, First | | AM PDT | | | | | dose on Sun11/06/18 at 1400, | | | | | | | Until Discontinued | | | | | | + +---------+ +--------+-------+---+ +---------+ +--------+---+---+ | New Bag | 11/08/19 | 600 mg | | | | | 19 12:20 | | | | | | AM PDT | | | | +---------+ +--------+---+---+ | New Bag | 11/07/19 | 600 mg | | | | | 19 4:13 | | | | | | PM PDT | | | | +---------+ +--------+---+---+ +---+---+ | | | +---+---+ + +-------+ +-------+---+---------+ | enoxaparin (LOVENOX) injection | Given | 11/08/19 | 80 mg | | Abdomen | | 80 mg 80 mg, subcutaneous, EVERY | | 19 6:05 | | | | | 12 HOURS, First dose (after last | | PM PDT | | | | | modification) on Theresa 11/07/18 at | | | | | | | 1800, Until Discontinued | | | | | | + +-------+ +-------+---+---------+ +---+---+ | | | +---+---+ + +-------+ +-------+---+---------+ | enoxaparin (LOVENOX) injection | Given | 11/10/19 | 80 mg | | Abdomen | | 80 mg 80 mg, subcutaneous, EVERY | | 19 12:11 | | | | | 12 HOURS, First dose on Fri | | PM PDT | | | | | 11/08/18 at 1200, Until | | | | | | | Discontinued | | | | | | + +-------+ +-------+---+---------+ +-------+ +-------+---+---------+ | Given | 11/09/19 | 80 mg | | Abdomen | | | 19 10:12 | | | | | | PM PDT | | | | +-------+ +-------+---+---------+ | Given | 11/09/19 | 80 mg | | Abdomen | | | 19 1:01 | | | | | | PM PDT | | | | +-------+ +-------+---+---------+ +---+---+ | | | +---+---+ + +-------+ +--------+---+---+ | fentaNYL (SUBLIMAZE) injection | Given | 11/07/19 | 25 mcg | | | | 25 mcg 25 mcg, intravenous, | | 19 12:57 | | | | | RECOVERY PRN (TUA), 8 doses, | | PM PDT | | | | | Starting Sun11/06/18 at 1109, | | | | | | | Until Sun11/06/18 at 1326, severe | | | | | | | pain while in Phase I Recovery | | | | | | + +-------+ +--------+---+---+ +-------+ +--------+---+---+ | Given | 11/07/19 | 25 mcg | | | | | 19 12:36 | | | | | | PM PDT | | | | +-------+ +--------+---+---+ | Given | 11/07/19 | 25 mcg | | | | | 19 12:24 | | | | | | PM PDT | | | | +-------+ +--------+---+---+ +---+---+ | | | +---+---+ + +-------+ +--------+---+---+ | gabapentin (NEURONTIN) capsule | Given | 11/07/19 | 300 mg | | | | 300 mg 300 mg, oral, | | 19 6:23 | | | | | PREPROCEDURE ONCE, 1 dose, | | AM PDT | | | | | Starting Sun11/06/18 at 0613, | | | | | | | Until Sun11/06/18 at 0623 | | | | | | + +-------+ +--------+---+---+ +---+---+ | | | +---+---+ + +-------+ +--------+---+---+ | gabapentin (NEURONTIN) capsule | Given | 11/10/19 | 600 mg | | | | 600 mg 600 mg, oral, THREE TIMES | | 19 9:08 | | | | | DAILY, First dose on Sun11/06/18 | | AM PDT | | | | | at 1600, Until Discontinued | | | | | | + +-------+ +--------+---+---+ +-------+ +--------+---+---+ | Given | 11/09/19 | 600 mg | | | | | 19 9:07 | | | | | | PM PDT | | | | +-------+ +--------+---+---+ | Given | 11/09/19 | 600 mg | | | | | 19 5:26 | | | | | | PM PDT | | | | +-------+ +--------+---+---+ +---+---+ | | | +---+---+ + + + + + +---+ | heparin in D5W 25,000 Units/250 | Rate/Dos | 11/08/19 | 1,400 | 14 mL/hr | | | mL (100 Units/mL) IV infusion | e Change | 19 12:25 | Units/hr | | | | (RTU) 1,400 Units/hr (14 mL/hr), | | PM PDT | | | | | intravenous, CONTINUOUS, | | | | | | | Starting 11/06/18 at 2200, | | | | | | | Until Theresa 11/07/18 at 1600 | | | | | | + + + + + +---+ + + + + +---+ | Rate/Dose Change | 11/08/19 | 1,200 | 12 mL/hr | | | | 19 6:04 | Units/hr | | | | | AM PDT | | | | + + + + +---+ | Rate/Dose Verify | 11/08/19 | 1,000 | 10 mL/hr | | | | 19 4:57 | Units/hr | | | | | AM PDT | | | | + + + + +---+ +---+---+ | | | +---+---+ + +-------+ +-------+---+---+ | hydrALAZINE (APRESOLINE) | Given | 11/07/19 | 10 mg | | | | injection 10-20 mg 10-20 mg, | | 19 2:38 | | | | | intravenous, EVERY 4 HOURS | | PM PDT | | | | | NEEDED, Starting 11/06/18 at | | | | | | | 1411, Until 11/09/18 at 2251, | | | | | | | hypertension, first line | | | | | | + +-------+ +-------+---+---+ +---+---+ | | | +---+---+ + +-------+ +--------+---+---+ | HYDROmorphone (DILAUDID) | Given | 11/07/19 | 0.4 mg | | | | injection 0.2-0.4 mg 0.2-0.4 mg, | | 19 4:20 | | | | | intravenous, EVERY 2 HOURS | | PM PDT | | | | | NEEDED, Starting Sun11/06/18 at | | | | | | | 1330, Until Sun11/06/18 at 2058, | | | | | | | severe pain | | | | | | + +-------+ +--------+---+---+ +-------+ +--------+---+---+ | Given | 11/07/19 | 0.2 mg | | | | | 19 2:03 | | | | | | PM PDT | | | | +-------+ +--------+---+---+ +---+---+ | | | +---+---+ + +-------+ +--------+---+---+ | HYDROmorphone (DILAUDID) | Given | 11/07/19 | 0.5 mg | | | | injection 0.2-0.5 mg 0.2-0.5 mg, | | 19 12:42 | | | | | intravenous, RECOVERY PRN (TUA), | | PM PDT | | | | | Starting 11/06/18 at 1109, | | | | | | | Until 11/06/18 at 1326, | | | | | | | moderate pain while in Phase I | | | | | | | Recovery | | | | | | + +-------+ +--------+---+---+ +-------+ +--------+---+---+ | Given | 11/07/19 | 0.5 mg | | | | | 19 12:12 | | | | | | PM PDT | | | | +-------+ +--------+---+---+ | Given | 11/07/19 | 0.5 mg | | | | | 19 11:59 | | | | | | AM PDT | | | | +-------+ +--------+---+---+ + +---+ | | | + +---+ | labetalol (TRANDATE) IV | | | injection 5-10 mg 5-10 mg, | | | intravenous, EVERY 4 HOURS | | | NEEDED, Starting 11/06/18 at | | | 1412, Until 11/09/18 at 2251, | | | hypertension, second line | | + +---+ | | | + +---+ + +---------+ + + +---+ | lactated ringers IV 10 mL/hr, | New Bag | 11/07/19 | 10 mL/hr | 10 mL/hr | | | intravenous, PROCEDURE | | 19 12:26 | | | | | CONTINUOUS, Starting 11/06/18 | | PM PDT | | | [...] +---+---+---+ +---+---+ | | | +---+---+ + + + +---------+---+ + | lidocaine (LIDODERM) 5 % patch | Applied | 11/10/19 | 1 patch | | Right | | 1 patch 1 patch, transdermal, | Patch | 19 11:33 | | | Lower | | EVERY 24 HOURS, First dose on Theresa | | AM PDT | | | Extremit | | 11/07/18 at 1100, Until | | | | | y | | Discontinued | | | | | | + + + +---------+---+ + + + +---------+---+ + | Applied Patch | 11/09/19 | 1 patch | | Right | | | 19 10:10 | | | Lower | | | AM PDT | | | Extremit | | | | | | y | + + +---------+---+ + | Applied Patch | 11/08/19 | 1 patch | | Right | | | 19 11:05 | | | Hip | | | AM PDT | | | | + + +---------+---+ + +---+---+ | | | +---+---+ + + + +---------+---+ + | lidocaine (LIDODERM) 5 % patch | Applied | 11/10/19 | 1 patch | | Left | | 1 patch 1 patch, transdermal, | Patch | 19 11:32 | | | Lower | | EVERY 24 HOURS, First dose on Theresa | | AM PDT | | | Extremit | | 11/07/18 at 1100, Until | | | | | y | | Discontinued | | | | | | + + + +---------+---+ + + + +---------+---+ + | Applied Patch | 11/09/19 | 1 patch | | Left | | | 19 10:09 | | | Lower | | | AM PDT | | | Extremit | | | | | | y | + + +---------+---+ + | Applied Patch | 11/08/19 | 1 patch | | Left Hip | | | 19 11:04 | | | | | | AM PDT | | | | + + +---------+---+ + +---+---+ | | | +---+---+ + +-------+ +--------+---+---+ | methocarbamol (ROBAXIN) tablet | Given | 11/08/19 | 500 mg | | | | 500 mg 500 mg, oral, THREE TIMES | | 19 11:05 | | | | | DAILY NEEDED, Starting Wed | | AM PDT | | | | | 11/06/18 at 1330, Until Sat | | | | | | | 11/09/18 at 2251, muscle spasms | | | | | | + +-------+ +--------+---+---+ +---+---+ | | | +---+---+ + +-------+ +------+---+---+ | oxyCODONE (immediate release) | Given | 11/10/19 | 5 mg | | | | (ROXICODONE) tablet 5-15 mg 5-15 | | 19 11:32 | | | | | mg, oral, EVERY 3 HOURS | | AM PDT | | | | | NEEDED, Starting 11/06/18 at | | | | | | | 1330, Until 11/09/18 at 2251, | | | | | | | moderate pain | | | | | | + +-------+ +------+---+---+ +-------+ +------+---+---+ | Given | 11/10/19 | 5 mg | | | | | 19 9:08 | | | | | | AM PDT | | | | +-------+ +------+---+---+ | Given | 11/10/19 | 5 mg | | | | | 19 4:50 | | | | | | AM PDT | | | | +-------+ +------+---+---+ +---+---+ | | | +---+---+ + +-------+ +------+---+---+ | polyethylene glycol (MIRALAX) | Given | 11/09/19 | 17 g | | | | packet 17 g 17 g, oral, DAILY, | | 19 10:12 | | | | | First dose on 11/06/18 at | | AM PDT | | | | | 1345, Until Discontinued | | | | | | + +-------+ +------+---+---+ +-------+ +------+---+---+ | Given | 11/08/19 | 17 g | | | | | 19 9:06 | | | | | | AM PDT | | | | +-------+ +------+---+---+ +---+---+ | | | +---+---+ + +-------+ +------+---+---+ | polyethylene glycol (MIRALAX) | Given | 11/10/19 | 17 g | | | | packet 17 g 17 g, oral, TWICE | | 19 9:08 | | | | | DAILY, First dose (after last | | AM PDT | | | | | modification) on Sun11/08/18 at | | | | | | | 2100, Until Discontinued | | | | | | + +-------+ +------+---+---+ +---+---+ | | | +---+---+ + +-------+ +---------+---+---+ | senna-docusate (SENOKOT S) | Given | 11/10/19 | 2 | | | | 8.6-50 mg 2 tablet 2 tablet, | | 19 9:08 | tablets | | | | oral, TWICE DAILY, First dose on | | AM PDT | | | | | Sun11/06/18 at 2100, Until | | | | | | | Discontinued | | | | | | + +-------+ +---------+---+---+ +-------+ +---------+---+---+ | Given | 11/09/19 | 2 | | | | | 19 9:08 | tablets | | | | | PM PDT | | | | +-------+ +---------+---+---+ | Given | 11/09/19 | 2 | | | | | 19 10:07 | tablets | | | | | AM PDT | | | | +-------+ +---------+---+---+ +---+---+ | | | +---+---+ + +-------+ +--------+---+---+ | tamsulosin (FLOMAX) capsule 0.4 | Given | 11/10/19 | 0.4 mg | | | | mg 0.4 mg, oral, DAILY, First | | 19 9:08 | | | | | dose on Sun11/06/18 at 1330, | | AM PDT | | | | | Until Discontinued | | | | | | + +-------+ +--------+---+---+ +-------+ +--------+---+---+ | Given | 11/09/19 | 0.4 mg | | | | | 19 10:07 | | | | | | AM PDT | | | | +-------+ +--------+---+---+ | Given | 11/08/19 | 0.4 mg | | | | | 19 9:05 | | | | | | AM PDT | | | | +-------+ +--------+---+---+ +---+---+ | | | +---+---+ + +-------+ +------+---+---+ | warfarin (COUMADIN) tablet 5 mg | Given | 11/08/19 | 5 mg | | | | 5 mg, oral, ONCE, 1 dose, Theresa | | 19 8:57 | | | | | 11/07/18 at 2100 | | PM PDT | | | | + +-------+ +------+---+---+ +---+---+ | | | +---+---+ + +-------+ +------+---+---+ | warfarin (COUMADIN) tablet 5 mg | Given | 11/09/19 | 5 mg | | | | 5 mg, oral, ONCE, 1 dose, Fri | | 19 9:07 | | | | | 11/08/18 at 2100 | | PM PDT | | | | + +-------+ +------+---+---+ +---+---+ | | | +---+---+ documented in this encounter
--- OUTSIDE RECORDS SUMMARY | ~2019-02-03 | XMS | Encounter Summary ---
Demographics + + + | Address | [address] | | | [place] [address] | + + + | Home Phone | | + + + | Preferred Language | Unknown | + + + | Marital Status | | + + + | Jain Affiliation | CAT | + + + [...] Providers + +------+ + | Care Professional Fee Coder Name | Role | Phone | + +------+ + | Bartolome Frederick DO | PCP | | + +------+ + Encounter Details +--------+ + + + + | Date | Type | Department | Care Team | Description | +--------+ + + + + | 11/06/ | Procedure | [facility] | | | | 2019 | Pass | OP LOC [address] [facility] | | | | | | [place] | | | | | | [address] | | | +--------+ + + + [...] | Visit | | [address] | | | | | | [facility] [address] | | | | | | [facility] [place] [address] | | | | | | [phone] | | | | | | | | +--------+---------+ + + + documented as of this encounter Visit Diagnoses Not on filedocumented in this encounter"
--- OUTSIDE RECORDS SUMMARY | ~2019-02-03 | XMS | Encounter Summary ---
Demographics + + + | Address | [address] | | | [place] [address] | + + + | Home Phone | | + + + | Preferred Language | Unknown | + + + | Marital Status | | + + + | Scientology Affiliation | 1041 | + + + | Race | Unknown | + + + | Ethnic Group | Unknown | + + + Author + + + | Author | [facility] | | | and [place] | + + + | Organization | [facility] | | [...] [address] | | | | | [place] | | | | | [address] | | + + + + + Care Team Providers + +------+ + | Care Fire Protection Inspector Name | Role | Phone | + +------+ + PCP | Unavailable | + +------+ + Encounter Details +--------+ + + + + | Date | Type | Department | Care Team | Description | +--------+ + + + + | 06/16/ | Hospital [facility] | | | | 2002 | Encounter | MED CTR XRAY [address] | | | | | | [address] | | | | | | [place] [address] | | | | | | [phone] | | | +--------+ + + + [...] 2020 | Visit | | [address] [facility] | | | | | | [address] [place] | | | | | | [address] | | | | | | | | +--------+---------+ + + + documented as of this encounter Visit Diagnoses Not on filedocumented in this encounter"
--- OUTSIDE RECORDS SUMMARY | ~2019-02-03 | XMS | Encounter Summary ---
Demographics + + + | Address | [address] | | | [place] [address] | + + + | Home Phone [...] Team Providers + +------+ + | Care Sand Buffer Name | Role | Phone | + +------+ + | Bartolome Frederick DO | PCP | | + +------+ + Encounter Details +--------+ + + + + | Date | Type | Department | Care Team | Description | +--------+ + + + + | 09/13/ | Hospital | Diagnostic Imaging | | | | 2019 | Encounter | at [facility] [address] [place], | | | | | | [place] [address] | | | | | | [phone] | | | +--------+ + + + [...] | | 0 | | | | [facility]sv[facility]Tnmimlumw[facility]Rn | daily. | | | | | [...] | | | | | | release (/DWAYNE) | | | | | | + [...] 2020 | Visit | | [address] | | | | | | [address] | | | | | | [place] [address] | | | | | | [phone] | | | | | | | | +--------+---------+ + + + documented as of this encounter Procedures + +--------+ + + + | Procedure Name | Priori | Date/Time | Associated Diagnosis | Comments | | | ty | | | | + +--------+ + + + | X-RAY SPINE | Routin | 09/13/2018 | Lumbar spondylosis | Results for this | | LUMBOSACRAL 4 VIEWS | e | 9:54 AM | | procedure are in the | | | | PDT | | results section. | + +--------+ + + + | X-RAY SCOLI SPINE | Routin | 09/13/2018 | Lumbar spondylosis | Results for this | | ENTR ANASTASIA AP &LAT | e | 9:54 AM | | procedure are in the | | | | PDT | | results section. | + +--------+ + + + documented in this encounter Results X-RAY SPINE LUMBOSACRAL 4 [...] | Lower lumbar facet arthropathy Signed By: Ismael Barth | | | On 09/13/2018 11:47:47 [...] RADIOLOGY | [address] | [place] [address] | [phone] | | VOICE RECOGNITION | | | | + + + + + X-RAY SCOLI SPINE ENTR ANASTASIA AP &LAT (09/13/2018 9:54 AM PDT) + + | Specimen | + + | | + + + + + | Narrative | Performed At | + + + | EXAM DESCRIPTION: X-RAY SCOLI SPINE ENTR SRVY AP &LAT CLINICAL | [facility] | | [...] Note | + ------+ | Service Account, Ethonova Res In Interface - 09/13/2018 11:52 AM PDT EXAM | | DESCRIPTION:X-RAY SCOLI SPINE ENTR VY AP &LAT CLINICAL HISTORY:Lumbar spondylosis | | [...] [address] | [place] [address] | [phone] | | VOICE RECOGNITION | | | | + + + + + documented in this encounter Visit Diagnoses + + | Diagnosis | + + | Lumbar spondylosis Lumbosacral spondylosis without myelopathy | + + documented in this encounter"
--- OUTSIDE RECORDS SUMMARY | ~2019-02-03 | XMS | Encounter Summary ---
Demographics + + + | Address | [address] | | | [place] [address] | + + + | Home Phone | | + + + | Preferred Language | Unknown | + + + | Marital Status | | + + + | Church Affiliation | CAT | + + + [...] Team Providers + +------+ + | Care Wrapper Hands Sprayer Name | Role | Phone | + [...] | | | | | [address] | | | | | | [address] | | | | | | [place], [place] | | | | | | [address] | | | | | | [phone] | | | +--------+ + + + [...] [address] | | | | | | [place] [address] | | | | | | [phone] | | | | | | | | +--------+---------+ + + + documented as of this encounter Procedures + +--------+ + + + | Procedure Name | Priori | Date/Time | Associated Diagnosis | Comments | | | ty | | | | + +--------+ + + + | CBC AND AUTO DIFF | Routin | 11/05/2018 | Hx of fci | Results for this | | | [...] | | | | PDT | of school childcare attendant use of | results section. 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 | | DIFFERENTIAL [...] [facility] | [address] | [place] [address] | | | LAB | | | [...] | + + + + + | [facility] | [address] | [place] [address] | | | LAB | | | [...] BLOOD | [address] | [place] [address] | | | BANK | | | [...] BLOOD | [address] | [place] [address] | | | BANK | | | | + + + + + documented in this encounter Visit Diagnoses + + | Diagnosis | + + | Chronic anticoagulation Encounter for long-term (current) use of anticoagulants | + + | 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
--- OUTSIDE RECORDS SUMMARY | ~2019-02-03 | XMS | Clinical Summary ---
Demographics + + + | Address | [address] | | | [place] [address] | + + + | Home Phone | | + + + | Preferred Language | Unknown | + + + | Marital Status | | + + + | Pentecostalism Affiliation | CAT | + + + | Race | White | + + + | Ethnic Group | Not or | + + + Author + + + | Author | [facility] | + + + | Organization | [facility] | + + + | Address | [...] Team Providers + +------+ + | Care Faculty Neuropsychologist Name | Role | Phone | + +------+ + | Bartolome Frederick DO | PCP | | + +------+ + Source Comments [facility] is fully live on both EpicCare Ambulatory and EpicCare InPatient.Formerly [facility] Allergies + + + + + + | Active Allergy | Reactions | Severity | Noted | Comments | | | | | Date | | + + + + + + | Bee Pollen | Pruritus, Unknown | | 09/01/19 | Hay Fever | | | | | 18 | | + + + + + + | Codeine | Nausea | Low | 06/01/19 | | | [...] | Anaphylaxis | High | 03/30/19 | Stopped breathing | | | | | 12 | | + + + + + + Medications + + + +---------+------+------+-------+ | Medication | Sig | Dispensed | Refills | Star | End | Statu | | | | | | t | Date | s | | | | | | Date | | | + + + +---------+------+------+-------+ | temazepam 30 mg | Take 30 mg by mouth | | 0 | | | Activ | | oral capsule | once daily at | | | | | e | | | bedtime. | | | | | | + + + +---------+------+------+-------+ | rOPINIRole 4 mg | Take 4 mg by mouth | | 0 | | | Activ | | oral tablet | once daily in the | | | | | e | | | evening. | | | | | | + + + +---------+------+------+-------+ | tamsulosin 0.4 mg | Take 0.4 mg by mouth | | 0 | | | Activ | | oral capsule | once daily. | | | | | e | + + + +---------+------+------+-------+ | gabapentin 300 mg | Take 600 mg by mouth | | 0 | 07/06 | | Activ | | oral capsule | three times daily. | | | 10/25 | | e | | | | | | 18 | | | + + + +---------+------+------+-------+ | | Take by mouth once | | 0 | | | Activ | | Pdimqzz-Aptjmtpri-Yk | daily. | | | | | e | | nc oral tablet | | | | | | | + + + +---------+------+------+-------+ | atorvastatin 20 mg | Take 20 mg by mouth | | 0 | 03/08 | | Activ | | oral tablet | once daily in the | | | 03/27 | | e | | | evening. | | | 18 | | | + + + +---------+------+------+-------+ | ascorbic acid SR | Take 500 mg by mouth | | 0 | | | Activ | | 1,000 mg oral tablet | once daily in the | | | | | e | | | evening. | | | | | | + + + +---------+------+------+-------+ | Ferrous Sulfate | Take 324 mg by mouth | | 0 | | | Activ | | 324 mg (65 mg iron) | once daily. | | | | | e | | oral tablet,delayed | | | | | | | | release (DR/EC) | | | | | | | + + + +---------+------+------+-------+ | cyanocobalamin | Take 1 tablet by | | 0 | | | Activ | | (VITAMIN B-12) 1,000 | mouth once daily. | | | | | e | | mcg oral tablet | | | | | | | + + + +---------+------+------+-------+ | verapamil SR 180 | Take 1 tablet by | | 0 | 10/0 | | Activ | | mg oral tablet | mouth once daily. | | | 8/20 | | e | | extended release | Start on 11/12/18 if | | | 19 | | | | | systolic blood | | | | | | | | pressure has been | | | | | | | | above 130 mm of hg | | | | | | + + + +---------+------+------+-------+ | enoxaparin 80 | Inject 0.8 mL under | | 0 | 10/0 | | Activ | | mg/0.8 mL | the skin (SUBC) | | | 5/20 | | e | | subcutaneous syringe | every twelve hours. | | | 19 | | | | | Until INR is above | | | | | | | | 2.5 then stop. Risks | | | | | | | | of lovenox | | | | | | | | discussed with | | | | | | | | patient | | | | | | + + + +---------+------+------+-------+ | baclofen 20 mg | Take 0.5 tablets by | | 0 | 10/0 | | Activ | | oral tablet | mouth three times | | | 5/20 | | e | | | daily as needed | | | 19 | | | | | (muscle spasms). | | | | | | + + + +---------+------+------+-------+ | warfarin 5 mg oral | Take 0.5 tablets by | | 0 | 10/0 | | Activ | | tablet | mouth once daily. | | | 5/20 | | e | | | 2.5 mg today and | | | 19 | | | | | tomorrow and then | | | | | | | | check INR on 11/11/18 | | | | | | | | and then dose | | | | | | | | adjust per your | | | | | | | | architectural inspector | | | | | | + + + +---------+------+------+-------+ | acetaminophen 500 | Take 2 tablets by | | 0 | 10/0 | | Activ | | mg oral tablet | mouth every six | | | 5/20 | | e | | | hours as needed for | | | 19 | | | | | mild pain. | | | | | | + + + +---------+------+------+-------+ | clindamycin 300 mg | Take 1 capsule by | 30 | 0 | 10/0 | | Activ | | oral capsule | mouth every eight | capsule | | 6/20 | | e | | | hours. | | | 19 | | | + + + +---------+------+------+-------+ Active Problems + + + | Problem | Noted Date | + + + | S/P lumbar fusion | 11/06/2018 | + + + | Essential hypertension | 10/24/2018 | + + + | Kyphosis deformity of spine | 09/13/2018 | + + + | Lumbar radiculopathy | 09/13/2018 | + + + | Lumbar spondylosis | 09/13/2018 | + + + | Lumbar degenerative disc disease | 09/13/2018 | + + + | Spondylolisthesis of lumbar region | 09/13/2018 | + + + | Lumbar foraminal stenosis | 09/13/2018 | + + + | Spondylosis without myelopathy or radiculopathy, lumbar region | 06/04/2018 | + + + + + | Overview: Last Assessment & Plan: -Referral placed to | | [facility] for [facility] option. Discussed the significance | | of changes in bowel or bladder. -Continue current treatment of | | Gabapentin and start physical therapy. -Encouraged him to use | | hiking poles with ambulation. | + + + + + | Aortic valve stenosis | 04/25/2018 | + + + | Chronic anticoagulation | 11/20/2017 | + + + | Chronic bilateral low back pain with bilateral sciatica | 09/04/2017 | + + + | Tobacco abuse | 08/14/2016 | + + + | CKD (chronic kidney disease), stage III | 06/13/2016 | + + + | Proteinuria | 06/13/2016 | + + + | Restless legs syndrome | 03/30/2011 | + + + | Obstructive sleep apnea | 03/30/2011 | + + + | History of mitral valve replacement with mechanical valve | 07/06/2002 | + + + + + | Overview: Overview: | | Overview: | | [facility] | | Overview: | | [facility] | + + Encounters +--------+ + + + + | Date | Type | Specialty | Care Team | Description | +--------+ + + + + | 01/30/ | Office | Neurological Surgery | Jeimy Mera, | S/P lumbar fusion | | 2019 | Visit | | PA-C | (Primary Dx); Lumbar | | | | | | degenerative disc | | | | | | disease; Lumbar | | | | | | spondylosis; | | | | | | Spondylolisthesis of | | | | | | lumbar region; | | | | | | Chronic | | | | | | anticoagulation | +--------+ + + + + | 01/30/ | Hospital | Radiology | Jeimy Mera, | Arrived | | 2018 | Encounter | | PA-C | | +--------+ + + + + | 01/30/ | Travel | | | | | 2018 | | | | | +--------+ + + + + | 01/28/ | Head Up Operator | Neurological Surgery | Michael Durbin MD | S/P lumbar fusion | | 2018 | | | | (Primary Dx) | +--------+ + + + + | 12/13/ | Refill | Neurological Surgery | Michael Durbin MD | Refill Request | | 2019 | | | | | +--------+ + + + + | 12/05/ | Office | Neurological Surgery | Jaison Barber, | S/P lumbar fusion | | 2018 | Visit | | PA-C | (Primary Dx); Lumbar | | | | | | degenerative disc | | | | | | disease; Aortic | | | | | | valve stenosis, | | | | | | etiology of cardiac | | | | | | valve disease | | | | | | unspecified; History | | | | | | of mitral valve | | | | | | replacement with | | | | | | mechanical valve; | | | | | | Chronic | | | | | | anticoagulation | +--------+ + + + + | 12/05/ | Hospital | Radiology | Jaison Barber, | | | 2018 | Encounter | | PA-C | | +--------+ + + + + | 12/05/ | Travel | | | | | 2018 | | | | | +--------+ + + + + | 11/28/ | Head Up Operator | Neurological Surgery | Michael Durbin MD | S/P lumbar fusion | | 2018 | | | | (Primary Dx) | +--------+ + + + + | 11/26/ | Telephone | Neurological Surgery | Michael Durbin MD | Medication | | 2018 | | | | | +--------+ + + + + | 11/10/ | Telephone | Neurological Surgery | Michael Durbin MD | Antibiotic Guidance | | 2018 | | | | | +--------+ + + + + | 11/06/ | Anesthesia | Surgery | Charisma Long | | | 2019 | Event | | | | +--------+ + + + + | 11/06/ | Surgery | Surgery | Michael Durbin MD | EXTREME LATERAL | | 2019 | | | | L2-L4 INTERBODY | | | | | | FUSION/POSTEROLATERA | | | | | | L L2-4 FUSION | | | | | | STABILIZATION | +--------+ + + + + | 11/06/ | Hospital | Adult Acute Care | Michael Durbin MD | | | 2018 - | Encounter | | | | | | | | | | | 11/09/ | | | | | | 2018 | | | | | +--------+ + + + + | 11/06/ | Procedure | Surgery | | | | 2018 | Pass | | | | +--------+ + + + + | 11/05/ | Anesthesia | Pre-operative | Jess | | | 2018 | Event | Medicine | GIOVANNI Matthews | | +--------+ + + + + | 11/05/ | Clinical | Pre-operative | | Pre-op evaluation | | 2018 | Support | Medicine | | | | | Staff | | | | +--------+ + + + + | 11/05/ | Travel | | | | | 2018 | | | | | +--------+ + + + + | 11/04/ | Head Up Operator | Neurological Surgery | Jaison Barber, | Hx of clod puller use | | 2018 | | | PA-C | of blood thinners | | | | | | (Primary Dx) | +--------+ + + + + from Last 3 Months Family History + + +------+ + | Medical History | Relation | Name | Comments | + + +------+ + | Heart Disease | Father | | | + + +------+ + | Hypertension | Father | | | + + +------+ + | Stroke | Father | | | + + +------+ + | Cancer | Mother | | | + + +------+ + | Hypertension | Mother | | | + + +------+ + + +------+--------+ + | Relation | Name | Status | Comments | + +------+--------+ + | Father | | | | + +------+--------+ + | Mother | | | | + +------+--------+ + Social History + +--------+ +--------+ + [...] | 2020 | Visit | | [address] | | | | | | [address] | | | | | | [place] [address] | | | | | | [phone] | | | | | | | | +--------+---------+ + + + + + + + + | Health Maintenance | Due Date | Last Done | Comments | + + + + + | Pneumococcal | | | | | vaccination (1 of 2 | 7 | | | | - PCV13) | | | | + + + + + | Influenza (Flu) | | | | | vaccination (#1) | 9 | | | + + + + + Implants + +------+-------+ +--------+--------+--------+ | Implanted | Type | Area | Manufacture | Device | Shelf | Model | | | | | r | | Expira | / | | | | | | Identi | tion | Serial | | | | | | fier | Date | / Lot | + +------+-------+ +--------+--------+--------+ | Bone Infuse Kit Xx Small | | N/A: | | | 08/04/ | [id number] | | [id number] - [id number]: | | Spine | | | 2020 | 0 / | | Qty: 1 on 11/06/2018 by Gifty, | | | | | | /[id number] | | Michael Candelaria MD at [facility] IP Rev | | | | | | [id number] | | Location | | | | | | | + +------+-------+ +--------+--------+--------+ | Kt Precept Ti Prebent | | N/A: | | | | [id number] | | Lordotic 75mm [id number] - | | Spine | | | | 5 / / | | [id number]: Qty: 2 on | | | | | | | | 11/06/2018 by Michael Durbin, | | | | | | | | MD at [facility] BEDS AT THE [facility] IP Rev Location | | | | | | | + +------+-------+ +--------+--------+--------+ + + | Description:L 2-4 | + + + +---+-------+ +---+--------+--------+ | Bone Infuse Kit X Small | | N/A: | | | 11/04/ | [id number] | | [id number] - [id number]: | | Spine | | | 2020 | 0 / | | Qty: 1 on 11/06/2018 by Gifty, | | | | | | /[id number] | | Michael Candelaria MD at [facility] 234 BEDS AT THE [facility] IP Rev | | | | | | [id number] | | Location | | | | | | | + +---+-------+ +---+--------+--------+ | Putty Dbm Maxxeus 10cc / | | N/A: | COMMUNITY | | 08/04/ | 2017-05 | | - [id number]: Qty: 1 | | Spine | TISSUE BANK | | 2020 | 0 / | | on 11/06/2018 by Michael Durbin | | | | | | / | | MD Bari at [facility] BEDS AT THE [facility] IP Rev Location | | | | | | 51 | + +---+-------+ +---+--------+--------+ | Putty Db Maxxeus 5.0cc - | | N/A: | | | 08/04/ | 2016-05 | | [id number]: Qty: 1 on | | Spine | | | 2020 | 0 / | | 11/06/2018 by Michael Durbin, | | | | | | / | | at [facility] BEDS AT THE [facility] IP Rev Location | | | | | | 49 | + +---+-------+ +---+--------+--------+ | Coroent Kaylan-HImplanted: Qty: 1 | | N/A: | | | | [id number] | | on 11/06/2018 by Michael Durbin | | Spine | | | | 5 / / | | MD Bari at [facility] Location | | | | | | | + +---+-------+ +---+--------+--------+ + + | Description:L 2-4 | + + + +---+-------+---+---+---+---+ | Emmett Contreras 15 | | N/A: | | | | | | Deg 10 X 22 X 55mm [id number] - | | Spine | | | | | | [id number]: Qty: 1 on | | | | | | | | 11/06/2018 by Michael Durbin, | | | | | | | | at [facility] Rev Location | | | | | | | + +---+-------+---+---+---+---+ + + | Description:L 2-4 | + + + +---+-------+---+---+---+--------+ | Screw Precept Polyaxial 7.5 X | | N/A: | | | | [id number] | | 50mm [id number] - | | Spine | | | | 0A / / | | [id number]: Qty: 4 on | | | | | | | | 11/06/2018 by Michael Durbin, | | | | | | | | MD at [facility] Location | | | | | | | + +---+-------+---+---+---+--------+ + + | Description:Darrell 2-4 | + + + +---+-------+---+---+---+---+ | Screw Precept Polyaxial 7.5 X | | N/A: | | | | | | 55mm [id number] - | | Spine | | | | | | [id number]: Qty: 2 on | | | | | | | | 11/06/2018 by Michael Durbin, | | | | | | | | MD at [facility] Rev Location | | | | | | | + +---+-------+---+---+---+---+ + + | Description:Darrell 2-4 | + + + +---+-------+---+---+---+--------+ | Set Screw Precept [id number] - | | N/A: | | | | [id number] | | [id number]: Qty: 6 on | | Spine | | | | 0 / / | | 11/06/2018 by Michael Durbin, | | | | | | | | at [facility] Location | | | | | | | + +---+-------+---+---+---+--------+ Procedures + +--------+ + + + | [...] | | MD - | | | 11/06/ | | | 2019 | | | 8:04 | | | [...] | | | , MD | +---+--------+ + +--------+ + + + | EXTREME [...] | Routin | 11/05/2018 | Hx of clod puller | Results for this | | | [...] | | | | PDT | of clod puller use of | results section. | | [...] | Routin | 11/05/2018 | Hx of clod puller | Results for this | | DIFFERENTIAL | e | 2:13 PM | use of blood | procedure are in the | | | | PDT | thinners | results section. | + +--------+ + + + from Last 3 Months Results X-RAY SPINE LUMBOSACRAL 2 VIEWS (01/30/2019 12:24 PM PST)Only the most recent of 3 results within the time period is included. + + | Specimen | + + [...] body heights are maintained. | | | Vprz-gv-sqimxzqs spondylotic changes are again seen in the [...] identified.Vertebral | | body heights are maintained. Wxjw-xd-hcmawbdo spondylotic changes are again seen in | [...] identified. | |Vertebral body heights are maintained. Qngi-cp-kilvebmb spondylotic changes are again seen in the [...] RADIOLOGY | [address] | [place] [address] | [phone] | | VOICE RECOGNITION | | | | + + + + + CBC AND AUTO DIFF (11/09/2018 4:38 AM PDT)Only the most recent of 4 results within the is included. + + + + + + | [...] | + + + + + | [facility] | [address] | [place] [address] | | | LAB | | | | + + + + + INR (11/09/2018 4:38 AM PDT)Only the most recent of 4 results within the time period is in cluded. + + + + + + | [...] [facility] | [address] | [place] [address] | | | LAB | | | | + + + + + RENAL FUNCTION SET (NA,K,CL,CO2,BUN,CREAT,GLUC,CA,PHOS,ALB ) (11/09/2018 4:38 AM PDT)Only the most recent of 4 results within the time period is included. + +---------+ + + + | Component [...] | | [facility] | | | NIGERIAN | | | | | + +---------+ [...] [facility] | [address] | [place] [address] | | | LAB | | | | + + + + + MAGNESIUM, PLASMA (11/09/2018 4:38 AM PDT)Only the most recent of 4 results within the is included. + +-------+ + + + | Component | Value | Ref Range | Performed | Pathologist | | | | | At | Signature | + +-------+ + + + | MAGNESIUM,P | 2.0 | 1.6 - 2.6 mg/dL | [facility] [...] [facility] | [address] | [place] [address] | | | LAB | | | [...] | | Not Detected result for the Spot Coffee antimicrobial resistance gene | [facility] | | assays does not indicate antimicrobial [...] [facility] | [address] | [place] [address] | | | LAB | | | | + + + + + CULTURE, BLOOD (11/08/2018 2:47 AM PDT)Only the most recent of 2 results within the time vicente rod is included. + + + + + + | [...] | | | clusters (AA)Comment: | | [facility] | | | | This is an [...] [facility] | [address] | [place] [address] | | | LAB | | | [...] [address] | [place] [address] | | | LAB | | | | + + + + + UA, DIPSTICK ONLY (11/08/2018 12:18 AM PDT) + + + [...] [address] | [place] [address] | | | LAB | | | [...] [facility] | [address] | [place] [address] | | | LAB | | | [...] Culture not indicated. | | | | [facility] | | | [facility] | + + + + + + + + | Performing | Address | City/State/Zipcode | Phone Number | | Organization | | | | + + + + + | [facility] | [address] | [place] [address] | | | LAB | | | | + + + + + X-RAY CHEST 2 VIEW (11/08/2018 12:05 AM PDT) + + | Specimen | + + | | + + + + + | Narrative | Performed At | + + + | EXAM DESCRIPTION: X-RAY CHEST 2 VIEW CLINICAL HISTORY: Postop | [facility] | | fever. COMPARISON: Scoliosis radiographs 09/13/2018 [...] Note | + --------+ | Service Account, Radiant Res In Interface - 11/08/2018 8:55 AM [...] RADIOLOGY | [address] | [place] [address] | [phone] | | VOICE RECOGNITION | | | | + + + + + HEPARIN, EITHER STANDARD / LMW, BLOOD (11/07/2018 9:53 AM PDT)Only the most recent of 3 re sults within the time period is included. + +-------+ + + + | Component [...] [facility] | [address] | [place] [address] | | | LAB | | | | + + + + + GLUCOSE, POC (11/07/2018 6:48 AM PDT)Only the most recent of 4 results within the time per iod is included. + +---------+ + + + | Component [...] to this test. | | | | [facility] | | | [facility] LAB | + + + + + + + + | Performing | Address | City/State/Zipcode | Phone Number | | Organization | | | | + + + + + | [facility] | [address] | [place] [address] | | | LAB | | | | + + + + + APTT (ACT. PART. THROMBO TIME) (11/06/2018 2:32 PM PDT) + +-------+ + + + | Component | Value | Ref Range | Performed | Pathologist | | | | | At | Signature | + +-------+ + + + | APTT | 29.3 | 26.0 - 36.0 | [facility] | | | | | seconds | [...] >1 hour after collection. APTT Therapeutic | [facility] | | Range: (70 - 115) sec Heparin | [facility] | | levels of 0.35 - 0.7 U/mL | | + + + + + + + + | Performing | Address | City/State/Zipcode | Phone Number | | Organization | | | | + + + + + | [facility] | [address] | [place] [address] | | | LAB | | | | + + + + + X-RAY FLUOROSCOPY > 1 HOUR [...] RADIOLOGY | [address] | [place] [address] | [phone] | + + + + + CULTURE, MRSA/MSSA SCREEN (11/06/2018 7:04 AM PDT) [...] [facility] | [address] | [place] [address] | | | LAB | | | | + + + + + CARDIOLOGY (11/06/2018 12:00 AM PDT) + + + | Narrative | Performed At | + + + | | | + + + ANTIBODY SCREEN (11/05/2018 2:13 [...] BLOOD | [address] | [place] [address] | | | BANK | | | [...] BLOOD | [address] | [place] [address] | | | BANK | | | | + + + + + from Last 3 Months Insurance + +--------+ +--------+ + +--------+ | Payer | Benefi | Subscriber | Effect | Phone | Address | Type | | | t Plan | ID | rusty | | | | | | / | | Dates | | | | | | Group | | | | | | + +--------+ +--------+ + +--------+ | MEDICARE | MEDICA | xxxxxxxxxxx | 02/05/19 | [phone] | [address] | Medica | | | RE A & | | 17-Pre | [phone] | | | B | | sent | | [place], [place] | | | | | | | | [address] | | + +--------+ +--------+ + +--------+ | COMMERCIAL GROUP | COMMER | xxxxxxxxxx | Effect | | | Indemn | | | CIAL | | rusty | | | ity | | | GROUP | | for | | | | | | | | all | | | | | | | | dates | | | | + +--------+ +--------+ + +--------+ | MEDICARE | MEDICA | xxxxxxxxxxx | 02/05/19 | [phone] | [address] | Medica | | | RE A & | | 17-Pre | [phone] | [address] | | | B | | sent | | [place], [place] | | | | | | | | [address] | | + +--------+ +--------+ + +--------+ | COMMERCIAL | INDIVI | xxxxxxxxxx | 02/05/19 | | | Indemn | | INDIVIDUAL | DUAL | | 17-Pre | | | ity | | | COMMER | | sent | | | | | | CIAL | | | | | | + +--------+ +--------+ + +--------+ + +--------+ +--------+ + + | Guarantor Name | Accoun | Relation to | Date | Phone | Billing Address | | | t Type | Patient | of | | | | | | | | | | + +--------+ +--------+ + + | Lupillo De La Paz | Person | Self | [birth year] | [address] | | | al/Fam | | 2 | [phone] | [place] [address] | | | michael | | | 6 (Home) | | | | | | | [phone] | | | | | | | 6 (Work) | | + +--------+ +--------+ + + | Lupillo De La Paz | Person | Self | [birth year] | | [address] | | | al/Fam | | 1950 | [phone] | [place] [address] | | | michael | | | 6 (Home) | | | | | | | [phone] | | | | | | | 6 (Work) | | + +--------+ +--------+ + + Advance Directives + + + + + | Code Status | Date | Date | Comments | | | Activated | Inactivated | | + + + + + | DNR/DNI | 11/06/2018 | 11/09/2018 | | | | 3:29 PM | 10:56 PM | | + + + + + + + + +---+ | | | | | + + + +---+ | Full Code | 11/06/2018 | 11/06/2018 | | | | 2:13 PM | 3:29 PM | | + + + +---+ + + + +---+ | | | | | + + + +---+ | Full Code | 11/06/2018 | 11/06/2018 | | | | 6:13 AM | 1:26 PM | | + + + +---+
--- OUTSIDE RECORDS SUMMARY | ~2019-02-03 | XMS | Encounter Summary ---
Demographics + + + | Address | [address] | | | [place] [address] | + + + | Home Phone | | + + + | Preferred Language | Unknown | + + + | Marital Status | | + + + | Sikhism Affiliation | 1041 | + + + | Race | Unknown | + + + | Ethnic Group | Unknown | + + + Author + + + | Author | [facility] | | | and [place] | + + + | Organization | [facility] | | | and [...] [place] | | | | | [address] | | + + + + + Care Team Providers + +------+ + | Care Steam Service Inspector Name | Role | Phone | + +------+ + | Bartolome Frederick DO | PCP | | + +------+ + Encounter Details +--------+ + + + + | Date | Type | Department | Care Team | Description | +--------+ + + + + | 11/21/ | Orders Only | [place] [facility] | Contreras, Swetha, | Chronic | | 2018 | | [facility] | NURSING INFORMATICS CLINICAL ANALYST [address] | nonintractable | | | | [facility] | [place] [address] | headache, | | | [address] [place], | [phone] | unspecified headache | | | | [place] [address] | | type (Primary Dx) | | | | [phone] | | | +--------+ + + + [...] 2020 | Visit | | [address] [facility] | | | | | | [address] [place] | | | | | | [address] | | | | | | | | +--------+---------+ + + + documented as of this encounter Visit Diagnoses + + | Diagnosis | + + | Chronic nonintractable headache, unspecified headache type - Primary | + + documented in this encounter
--- OUTSIDE RECORDS SUMMARY | ~2019-02-03 | XMS | Encounter Summary ---
Demographics + + + | Address | [address] | | | [place] [address] | + + + | Home Phone [...] [address] | | | | | [facility] | | | | | [address] | | + + + + + Care Team Providers + +------+ + | Care Real Time Trader Name | Role | Phone | + [...] | | | | | with | [address] | [place], [place] | | | | | myelopathy, | Phone: | [address] | | | | | lumbar | [phone] | Phone: | | | | | region | Fax: | [phone] | | | | | Bowel and | [phone] | Fax: | | | | | bladder | | [phone] | | | | | incontinence | [...] | | | [facility] | [place], [place] | region (Primary Dx); | | | | [address] [place], | [address] | Bowel and bladder | | | | [place] [address] | [phone] | incontinence; | | | | [phone] | | Piriformis syndrome | | | [...] | Shots of liquor 0-1 | | [place]) | | | Standard drinks or | [...] in this encounter Progress Yolie Montiel 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 Durbin at [facility] Neurosurgeon, his office will call you to schedule appointment (If Dr. Durbin will not see him consider [facility] Ascencio in [place]) -Start Tizanidine 4 mg nightly for [...] He has seen Dr. Davy flores at [facility], but was told that if he completed [...] like a referral to Dr. Durbin at [facility] for a second opinion. He has an [...] Comment: Four beers once per year (during [place]) Drug use: No Sexual activity: Yes Partners: [...] mood and affect. Entered by Omid Sanches [facility], acting as scribe for Juan Daniel Frederick [...] 2019 | Visit | | [address] [facility] | | | | | | [address] [place], [place] | | | | | | [address] | | | | | | | [...] for prophylactic vaccination with combined | | ndfomdppbu-swduzxg-udkwzntpb (DTP) vaccine | + + | Screening for AAA (abdominal aortic aneurysm) Screening for other and unspecified | | cardiovascular conditions | + + | Encounter for hepatitis C screening test for low risk patient | + + documented in this encounter
--- OUTSIDE RECORDS SUMMARY | ~2019-02-03 | XMS | Encounter Summary ---
Demographics + + + | Address | [address] | | | [place] [address] | + + + | Home Phone | | + + + | Preferred Language | Unknown | + + + | Marital Status | | + + + | Alevism Affiliation | CAT | + + + [...] Team Providers + +------+ + | Care Digging Machine Operator Name | Role | Phone [...] [address] | | | | | [place] [address] | [address] | | | 11/09/ | | [phone] | [place] [address] | | | 2018 | | | [phone] | | | | | | | [...] might be different fr om the original. [facility] discharge Summary Discharging Provider: Malik Milner MD [...] by neurosurgery and their discussion with patient's optometric technician which was planned prior to the procedure. [...] and bridging post surgery with patient's primary optometric technician Zack Jennings. Patient underwent above-noted procedure on [...] bridging with Lovenox post surgery with patient's optometric technician jonathan singleton. Patient will be discharged on Lovenox and Coumadin. Dose of Lovenox and Coumadin were disc ussed with the patient. He will follow-up with INR clinic close to his home and Deanna Ridley son will manage patient's INR. He will continue Lovenox until his INR is between 2.5-3.5. He will follow-up with his primary optometric technician Dr. Jennings for further instructions regarding this [...] on and then dose adjust per your optometric technician What changed: how much to take additional instructions CONTINUE taking these medications ascorbic acid SR 1,000 mg Tab Take 500 mg by mouth once daily in the evening. atorvastatin 20 mg Tab Commonly known as: LIPITOR Take 20 mg by mouth once daily in the evening. Szteyus-Rrqdmdpop-Myev Tab Commonly known as: THYCYTO-HSGTZWYPS-BJKJ Take by mouth once daily. Ferrous Sulfate [...] -No forward bending to the floor to shredder picker objects -Keep head above the level [...] daily. IN R on Sunday at the [facility] with Deanna Quinn. Lovenox dose may be [...] NOT RESTART THESE MEDICATIONS UNTIL CLEARED BY [facility] NEUROS[facility]ERY. Activity: -Activity instructions: no strenuous exercise, no bending/twisting, lifting restricted to < 1/2 gallon of milk in weight. -No forward bending to the floor to shredder picker objects -Keep head above the level [...] Office Address: [facility] [address], [address] [place], [place] [id number] INR Standing Status: Future Expected By: 11/11/18 Standing Exp. Date: 12/11/19 Basic Metabolic Set (Na, K, Cl, TCO2, Bun, Cr, Glu, Ca) Standing Status: Future Expected By: 11/11/18 Standing Exp. Date: 12/11/19 Follow Up: Future Appointments Provider Department Dept Phone Center 12/05/2018 11:00 AM Jaison Barber [facility] Neurosurgery at 7th [phone] [facility] Neurosur Schedule the following appointment(s) when you get home Bartolome Ferderick DO In 1 week. Specialty: Family Medicine Contact information [address] [place] [address] Michael Shelley MD In 3 weeks. Specialty: Neurological Surgery Contact information [address] [place] [id number] Wesley Jennings MD In 1 week. Specialty: Cardiovascular Diseases Contact information [address] [place] [address] [facility] [phone] Discharge Physical Exam: Last 24 hour min/max [...] 10:45 AM Office Address: Dr. Michael Shelley [facility] Neurosurgery [address], [address] [place] [address] Discharge Instr - Activity Jaison Barber PA-C - 11/07/2018 7:32 AM PDTActivity: -Activity instructions: no strenuous exercise, no bending/twisting, lifting restricted to < 1/2 gallon of milk in weight. -No forward bending to the floor to shredder picker objects -Keep head above the level [...] daily. IN R on Sunday at the [facility] with Deanna Quinn. Lovenox dose may be [...] NOT RESTART THESE MEDICATIONS UNTIL CLEARED BY [facility] NEUROSURGERY. Activity: -Activity instructions: no strenuous exercise, no bending/twisting, lifting restricted to < 1/2 gallon of milk in weight. -No forward bending to the floor to shredder picker objects -Keep head above the level [...] 10:45 AM Office Address: Dr. Michael Shelley [facility] Neurosurgery Clinic [address], [address] [place] [id number] AttachmentsThe following attachments cannot be sent through Care Everywhere.Lumbar Spinal F usion: Post-op (Lebanese)documented in this encounter Medications at Time of [...] | | 0 | | | | Xsvcdfc-Vkizmnrlk-Xt | daily. | | | | | [...] | | | | | | | optometric technician | | | | | + + [...] left. Dr. Milner spoke with pt @ 2475 and informed pt to go get additional [...] different fr om the original. SARAH Rai [facility] [address] [place] [address] NEUROSURGERY PROGRESS NOTE PATIENT NAME: Lupillo De [...] has no apparent deficits with short or senior care memory. MOTOR EXAM: Motor strength is stable [...] He follows with Dane Quinn at the [facility] and he will need to see her [...] to d/c home tomorrow James Jones MD [facility] Department of Neurological Automation DeveloperStandard Machine StitcherMaral Christian, RN - 11/08/2018 10:19 AM PDTCase Management Initial Assessment Reason for Admission: S/P Minimally invasive L2-4 anterior and posterior lumbar fusion 03/26 Admitted From: Home Emergency Contact: Primary Emergency Contact: Ai De La Paz Relation: Spouse Tammie Leblanc / Daughter / [phone] (c) [phone] (h) Past Medical History: M40.295 (ICD-10-CM) - [...] anxious to be discharged. He lives in [place] and his daughter is he re from [place], [place], to provide transportation and needs to be back at work 11/11/18. Shabana donaldson has his TLSO brace and 4WW. Anticipated Discharge Needs: To be determined. Assessment done by: Maral TYSON dredge mate Nicole Mullen RN - 11/07/2018 3:53 PM [...] 68 y.o. male with a PMH of [facility] MVR, CKD, who presented on for [...] 11/07/2018 9:25 AM PDT Michael Shelley MD [facility] [address] [place] [address] NEUROSURGERY PROGRESS NOTE PATIENT NAME: Lupillo De [...] mg 500 mg oral TID PRN Josh Goana MD metoclopramide HCl (REGLAN) injection 5-10 mg [...] has no apparent deficits with short or senior care memory. MOTOR EXAM: Motor strength is stable [...] dose on 11/05. On his arrival to [facility] he was hemodynamically stable and remains stable [...] personally and independently examined this pt and [id number] caring for thi s patient to include [...] [address] | | | | | | [place] [address] | | | | | | [phone] | | | | | | | [...] [address] | [place] [address] | | | LAB | | | [...] [address] | [place] [address] | | | LAB | | | [...] [facility] | [address] | [place] [address] | | | LAB | | | [...] | | [facility] | | | [place] | | | | | + +---------+ [...] [facility] | [address] | [place] [address] | | | LAB | | | [...] | | Not Detected result for the [employer] antimicrobial resistance gene | [facility] | | [...] [facility] | [address] | [place] [address] | | | LAB | | | [...] [facility] | [address] | [place] [address] | | | LAB | | | [...] [facility] | [address] | [place] [address] | | | LAB | | | [...] [facility] | [address] | [place] [address] | | | LAB | | | [...] | | [facility] | | | [place] | | | | | + +---------+ [...] [facility] | [address] | [place] [address] | | | LAB | | | [...] [address] | [place] [address] | | | LAB | | | [...] [facility] | [address] | [place] [address] | | | LAB | | | [...] [facility] | [address] | [place] [address] | | | LAB | | | [...] [facility] | [address] | [place] [address] | | | LAB | | | [...] [facility] | [address] | [place] [address] | | | LAB | | | [...] [facility] | [address] | [place] [address] | | | LAB | | | [...] Note | + --------+ | Service Account, Viximoant Res In Interface - 11/08/2018 8:55 AM [...] [address] | [place] [address] | [phone] | | VOICE RECOGNITION | | | [...] [facility] | [address] | [place] [address] | | | LAB | | | [...] [address] | [place] [address] | | | LAB | | | [...] [facility] | [address] | [place] [address] | | | LAB | | | [...] | | [facility] | | | [place] | | | | | + +---------+ [...] [facility] | [address] | [place] [address] | | | LAB | | | [...] [place] | [address] | [place] [address] | | | LAB | | | [...] [facility] | [address] | [place] [address] | | | LAB | | | [...] [facility] | [address] | [place] [address] | | | LAB | | | [...] [facility] | [address] | [place] [address] | | | LAB | | | [...] [facility] | [address] | [place] [address] | | | LAB | | | [...] [address] | [place] [address] | | | LAB | | | [...] | | [facility] | | | [place] | | | | | + +---------+ [...] [facility] | [address] | [place] [address] | | | LAB | | | [...] RADIOLOGY | [address] | [place] [address] | [phone] | + + + + + X-RAY [...] RADIOLOGY | [address] | [place] [address] | [phone] | + + + + + CARDIOLOGY [...]
--- OUTSIDE RECORDS SUMMARY | ~2019-02-03 | XMS | Encounter Summary ---
Demographics + + + | Address | [address] | | | [place] [address] | + + + | Home Phone | | + + + | Preferred Language | Unknown | + + + | Marital Status | | + + + | Jehovah'S Witness Affiliation | 1041 | + + + | Race | Unknown | + + + | Ethnic Group | Unknown | + + + Author + + + | Author | [facility] | | | and [place] | + + + | Organization | [facility] | | | [...] [place] | | | | | [address] | | + + + + + Care Team Providers + +------+ + | Care Patrol Community Service Officer Name | Role | Phone | + [...] | | | | | mechanical | [place], [place] | | | | | | valve | [address] | | | | | | Aortic valve | Phone: | | | | | | stenosis, | [phone] | | | | | | mild | Fax: | | | | | | Procedures | [phone] | | | | | | ECHO [...] + + | 10/10/ | Office | [facility] | Wesley Jennings, | Hypertension, | | 2018 | Visit | CARDIOLOGY [place] | [address] | unspecified type | | | | [address] | [place] [address] [place], | (Primary Dx); | | | | [place], [place] | [place] [address] | History of mitral | | | | [address] | [phone] | valve replacement | | | | [phone] | | with mechanical | | | [...] | Shots of liquor 0-1 | | [place]) | | | Standard drinks or | [...] a repeat study will be done at [facility] next September. He has a history of [...] mitral valve. He told me that the [facility] take care of this. I will [...] gradient 28.2/14.7 mmHg, relatively rapid progression noted. Wash Plant Operator al [address] Donald MVR with normal function. -- Echo (03/16/17): EF 60-65%, normal RV size, function, mild , KORTNEY 1.7 cm, peak/mean gra dient 15.3/9.[address] [facility] mechanical MVR, prosthetic MVA 2.7 cm, peak/mean grad ients 15.5/5.4 mmHg -- Echo (07/03/12 - [place]): EF 55-60%, grade 1 diastolic dysfunction, mild LAE, normal ly functioning mechanical mitral valve replacement, trace MR, mild TR -- Holter (02/27/05): Normal sinus rhythm, frequent PVCs, rare PACs -- Lipid panel (07/03/12): TC-186, LDL-129, HDL-37, TG-102 -- Mitral Valve Replacement (07/08/02): [facility] Donald model [id number]-502, s# [id number] -- Carotid U/S (03/29/11): 0-20% bilateral internal [...] Comment: Four beers once per year (during [place]) Drug use: No Sexual activity: Yes Partners: [...] 4.8 oz) | SpO2 96% | B NH 30.03 kg/m PHYSICAL EXAM GENERAL: Well developed, [...] 2019 | Visit | | [address] [facility] | | | | | | [facility] | | | | | | [address] | | | | | | | [...] | | | | | by [facility] [place] Read Only, | | | | | | [facility] [place] ([id number]), | | | | | | story editor Zana Nguyen | | | | | [...]
--- OUTSIDE RECORDS SUMMARY | ~2019-02-03 | XMS | Encounter Summary ---
Demographics + + + | Address | [address] | | | [place] [address] | + + + | Home Phone | | + + + | Preferred Language | Unknown | + + + | Marital Status | | + + + | Mosque Affiliation | CAT | + + + [...] Team Providers + +------+ + | Care Key Account Representative Name | Role | Phone | + +------+ + | Bartolome Frederick DO | PCP | | + +------+ + Encounter Details +--------+ + + + + | Date | Type | Department | Care Team | Description | +--------+ + + + + | 11/06/ | Procedure | [facility] | | | | 2019 | Pass | OP LOC [address] | | | | | | [place] | | | | | | [address] | | | +--------+ + + + [...] Christy | | | | | | [facility] [address] | | | | | | [facility] [place] [address] | | | | | | [phone] | | | | | | | | +--------+---------+ + + + documented as of this encounter Visit Diagnoses Not on filedocumented in this encounter"
--- OUTSIDE RECORDS SUMMARY | ~2019-02-03 | XMS | Encounter Summary ---
Demographics + + + | Address | [address] | | | [place] [address] | + + + | Home Phone | | + + + | Preferred Language | Unknown | + + + | Marital Status | | + + + | Samaritan Affiliation | 1041 | + + + | Race | Unknown | + + + | Ethnic Group | Unknown | + + + Author + + + | Author | [facility] | | | and [place] | + + + | Organization | [facility] | | | [...] [place] | | | | | [address] | | + + + + + Care Team Providers + +------+ + | Care Renewable Energy Engineer Name | Role | Phone | + +------+ + | Bartolome Frederick DO | PCP | | + +------+ + Reason for Visit +---------+ + | Reason | Comments | +---------+ + | Results | 10/02/18 | +---------+ + Encounter Details +--------+ + + + + | Date | Type | Department | Care Team | Description | +--------+ + + + + | 10/08/ | Documentati | [facility] | Liriano, | Results (10/02/18) | | 2019 | on | NEPHROLOGY [place] | [facility] | | | | | [address] | Rv Service Technician | | | | | [address] [facility] [place] | | | | | | [address] | | | | | | [phone] | | | +--------+ + + + [...] | Shots of liquor 0-1 | | [place]) | | | Standard drinks or | [...] 2019 | Visit | | [address] [facility] | | | | | | [address] [facility] | | | | | | [address] | | | | | | | | +--------+---------+ + + + documented as of this encounter Procedures + +--------+ + + + | Procedure Name | Priori | Date/Time | Associated Diagnosis | Comments | | | ty | | | | + +--------+ + + + | CBC W/AUTO | Routin | 10/02/2018 | | Results for this | | DIFFERENTIAL | e | 2:10 PM | | procedure are in the | | | | PDT | | results section. | + +--------+ + + + | MAGNESIUM | Routin | 10/02/2018 | | Results for this | | | e | 2:10 PM | | procedure are in the | | | | PDT | | results section. | + +--------+ + + + | RENAL FUNCTION PANEL | Routin | 10/02/2018 | | Results for this | | | e | 2:10 PM | | procedure are in the | | | | PDT | | results section. | + +--------+ + + + | EXTERNAL LAB: | Routin | 10/02/2018 | | Results for this | | PROTEIN/CREATININE | e | | | procedure are in the | | RATIO | | | | results section. | + +--------+ + + + documented in this encounter Results Renal Function Panel (10/02/2018 2:10 PM PDT) + + + + + + | Component | Value | Ref Range | Performed | Pathologist | | | | | At | Signature | + + + + + + | Na | 138 | 132 - 143 | | | | | | mmol/L | | | + + + + + + | K | 5.1 | 3.6 - 5.1 | | | | | | mmol/L | | | + + + + + + | Cl | 103 | 95 - 112 mmol/L | | | + + + + + + | CO2 | 27 | 19 - 31 mmol/L | | | + + + + + + | Anion Gap | 13 | 7 - 21 mmol/L | | | + + + + + + | Glucose | 71 | 70 - 100 mg/dL | | | + + + + + + | BUN | 46 (A) | 6 - 23 mg/dL | | | + + + + + + | Creatine, | 2.49 (A) | 0.70 - 1.25 | | | | Serum | | | | | + + + + + + | GFR | 26 (A) | 60 - 140 | | | | ESTIMATE | | | | | | (REF) | | | | | + + + + + + | BUN/Creatin | 18.5 | 6.0 - 28.6 | | | | ine Ratio | | | | | + + + + + + | Albumin | 4.4 | 3.5 - 5.0 g/dL | | | + + + + + + | Calcium | 9.6 | 8.5 - 10.3 | | | + + + + + + | Phosphorus, | 4.7 | 2.5 - 5.0 | | | | External | | | | | + + + + + + + + | Specimen | + + | Blood | + + Magnesium (10/02/2018 2:10 PM PDT) + +-------+ + + + | Component | Value | Ref Range | Performed | Pathologist | | | | | At | Signature | + +-------+ + + + | Magnesium | 2.1 | 1.7 - 2.5 mg/dL | | | + +-------+ + + + + + | Specimen | + + | Blood | + + CBC w/ Auto Differential (10/02/2018 2:10 PM PDT) + + + + + + | Component | Value | Ref Range | Performed | Pathologist | | | | | At | Signature | + + + + + + | CBC | 9.6 | 4.5 - 11.0 | | | + + + + + + | RBC COUNT | 4 | 4 - 6 | | | + + + + + + | Hemoglobin | 11.4 (A) | 13.5 - 18.0 | | | + + + + + + | Hematocrit, | 34.2 (A) | 41 - 50 | | | | BF | | | | | + + + + + + | Platelet | 214 | 140 - 440 | | | | Count | | | | | | Plasma | | | | | + + + + + + | NEUTROPHILS | 70 | 39 - 80 % | | | | BL | | | | | + + + + + + | LYMPHOCYTES | 17.2 (A) | 24 - 44 % | | | | BL | | | | | + + + + + + | MONOCYTES | 9.1 | 0 - 12 | | | | BAL | | | | | + + + + + + | MCV | 92.2 | 81 - 99 | | | + + + + + + | RDW | 13.3 | 10.5 - 15.0 | | | + + + + + + | MCH | 31 | 27 - 33 | | | + + + + + + | MCHC, POC | 33 | 30 - 36 | | | + + + + + + | EOSINOPHILS | 3.2 | 0 - 6 % | | | | BL | | | | | + + + + + + | BASOPHILS | 0.5 | 0 - 2 | | | | BAL | | | | | + + + + + + + + | Specimen | + + | Blood | + + External Lab: Protein/Creatinine Ratio (10/02/2018) + +-------+ + + + | Component | Value | Ref Range | Performed | Pathologist | | | | | At | Signature | + +-------+ + + + | Protein/Cre | 101.7 | 0 - 150 | | | | atinine | | | | | | Ratio, | | | | | | External | | | | | + +-------+ + + + + + | Specimen | + + | | + + documented in this encounter Visit Diagnoses Not on filedocumented in this encounter"
--- OUTSIDE RECORDS SUMMARY | ~2019-02-03 | XMS | Encounter Summary ---
Demographics + + + | Address | [address] | | | [place] [address] | + + + | Home Phone | | + + + | Preferred Language | Unknown | + + + | Marital Status | | + + + | Mandaeism Affiliation | 1041 | + + + | Race | Unknown | + + + | Ethnic Group | Unknown | + + + Author + + + | Author | [facility] | | | and [place] | + + + | Organization | [facility] | | | [...] [address] | | | | | [address] | | + + + + + Care Team Providers + +------+ + | Care Utility Mechanic Supervisor Name | Role | Phone | [...] + + | 10/31/ | Telephone | [facility] | Racheal Ricci | Other (lab result) | | 2019 | | NEPRHOLOGY [place] | , [facility] | | | | | [address] | Statistical Geneticist | | | | | [address] [place], [place] | | | | | | [address] | | | | | | [phone] | | | +--------+ + + + [...] | Shots of liquor 0-1 | | [place]) | | | Standard drinks or [...] 2020 | Visit | | [address] [facility] | | | | | | [address] [place] | | | | | | [address] | | | | | | | | +--------+---------+ + + + documented as of this encounter Visit Diagnoses Not on filedocumented in this encounter"
--- OUTSIDE RECORDS SUMMARY | ~2019-02-03 | XMS | Encounter Summary ---
Demographics + + + | Address | [address] | | | [place] [address] | + + + | Home Phone | | + + + | Preferred Language | Unknown | + + + | Marital Status | | + + + | Cheondoism Affiliation | 1041 | + + + | Race | Unknown | + + + | Ethnic Group | Unknown | + + + Author + + + | Author | [facility] | | | and [place] | + + + | Organization | [facility] | | [...] | [address] | | | | | [address] | | | | | [address] | | + + + + + Care Team Providers + +------+ + | Care Welcome Hostess Name | Role | Phone | + +------+ + | Khai Ackerman DO | PCP | Unavailable | + +------+ + Reason for Visit + + + | Reason | Comments | + + + | Follow-up | Six month | + + + | Hypertension | | + + + | Palpitations | | + + + Encounter Details +--------+---------+ + + + | Date | Type | Department | Care Team | Description | +--------+---------+ + + + | 04/16/ | Office | [facility] | [place], | Hyperlipidemia | | 2013 | Visit | CARDIOLOGY [address] | KAYLIE Lafleur [address] | (Primary Dx); | | | | [place], | [place], | Hypertension; | | | | [place] [address] | [place] [address] | ENDOCARDITIS,MITRAL | | | | [phone] | [phone] | VALVE W/ENLARGED | | | | [...] + + + | Blood Pressure | 132/72 | 04/16/2013 1:26 PM | Left | | | | PDT | | + + + + + | Pulse | 74 | 04/16/2013 1:26 PM | Regular | | | | PDT | | + + + + + | Temperature | - | - | | + + + + + | Respiratory Rate | 20 | 04/16/2013 1:26 PM | | | | | PDT | | + + + + + | Oxygen Saturation | - | - | | + + + + + | Inhaled Oxygen | - | - | | | Concentration | | | | + + + + + | Weight | 91.2 kg (201 lb) | 04/16/2013 1:26 PM | | | | | PDT | | + + + + + | Height | 177.8 cm (5' 10") | 04/16/2013 1:26 PM | | | | | PDT | | + + + + + | Body Mass Index | 28.84 | 04/16/2013 1:26 PM | | | | | PDT | | + + + + + documented in this encounter Progress Notes Ciarra Barnes ARNP - 04/16/2013 1:29 PM PDTFormatting of this note might be different f rom the original. PATIENT NAME: Lupillo De La Paz : 1950: AGE: 63 y.o. PRIMARY CARE: Khai Ackerman DO OUTPATIENT FOLLOW UP VISIT Date of Service: 04/16/2013 HISTORY OF PRESENT ILLNESS: Lupillo De La Paz is a 63 y.o. 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 He is being seen today for follow up hypertension, palpitations and valve replacement. He was last seen on 10/10/2012 at which time patient was recommended to do echocardiogram to assess structure of heart in the presence of dyspnea on exertion and follow up in 6 months. It was patient's preference to wait and not have echocardiogram done. Since that time, timothy donaldson has increased his physical activity and exercise and now he is walking 2-1/2 miles 5 da ys a week, his shortness of breath on exertion has improved and he is not having the symptom s any longer. Patient continues to work full-time at the [employer]. He can exert himself without experiencing any chest pain, chest tightness or shortness of breath. He denies any lightheadedness, dizziness, palpitations or leg swelling. He is able to sleep on his back in bed with 1 or 2 pillows without experiencing any shortness of breath. MEDICAL, SURGICAL, AND PERSONAL HISTORY Past Medical, Surgical, Family, and Social History are reviewed in EPIC. CURRENT PROBLEMS Patient Active Problem List Diagnosis OBESITY RESTLESS LEGS SYNDROME INSOMNIA MIGRAINE HEADACHE SLEEP APNEA HYPERLIPIDEMIA HYPERTENSION ENDOCARDITIS,MITRAL VALVE W/ENLARGED ANTERIOR LEAFLET VEG DYSPNEA PALPITATIONS CURRENT MEDICATIONS Outpatient Encounter Prescriptions as of 04/16/2013 Medication Sig Dispense Refill aspirin 81 mg EC tablet Take 81 mg by mouth Daily. baclofen (LIORESAL) 10 mg tablet Two tablets by mouth every 8 hours as needed kpvdtbpnoj-plpnkyfdirqtk-zkaveglo (ESGIC PLUS) per tablet One tablet by mouth every 8 h ours as needed [DISCONTINUED] HYDROmorphone (DILAUDID) 4 MG tablet Take 4 mg by mouth every 4 hours as needed. [DISCONTINUED] oxyCODONE-acetaminophen (PERCOCET) 5-325 mg per tablet Take 1 tablet by mouth every 4 hours as needed. rOPINIRole (REQUIP) 4 mg tablet Take 4 mg by mouth nightly. simvastatin (ZOCOR) 40 mg tablet Take 40 mg by mouth nightly. temazepam (RESTORIL) 30 MG capsule Take 30 mg by mouth nightly as needed. triamterene-hydrochlorothiazide (MAXZIDE-25) 37.5-25 mg per tablet Take 37.5-25 mg by m outh. Takes this medication Sunday, , Sunday [DISCONTINUED] triamterene-hydrochlorothiazide (MAXZIDE-25) 37.5-25 mg per tablet Take 37.5-25 mg by mouth Daily. verapamil (VERELAN) 240 mg SR capsule Take 240 mg by mouth nightly. warfarin (COUMADIN) 1 mg tablet Currently on hold as his dose is currently only 5 mg da michael, patient has 5 mg tablets. [DISCONTINUED] warfarin (COUMADIN) 1 mg tablet 1 tablet by mouth daily with 5 mg for a total of 6 mg daily warfarin (COUMADIN) 5 mg tablet Take 5 mg by mouth Daily. [DISCONTINUED] warfarin (COUMADIN) 5 mg tablet One tablet by mouth once daily with 1-mg tablet for a total of 6 mg, as directed by Khai Ackerman, DO ALLERGIES Allergies Allergen Reactions Codeine Sulfate Penicillins ROS Review of Systems Constitutional: Negative for fever, chills and weight loss. Cardiovascular: Negative for chest pain and palpitations. Neurological: Negative for dizziness. OBJECTIVE: PHYSICAL EXAM BP 132/72 | Pulse 74 | Resp 20 | Ht 1.778 m (5' 10") | Wt 91.173 kg (201 lb) | BMI 28.84 kg /m2 Physical Exam Constitutional: He is oriented to person, place, and time. He appears well-developed and we ll-nourished. Adult male without acute distress Neck: Normal carotid pulses and no JVD present. Carotid bruit is not present. Cardiovascular: Normal rate, regular rhythm, S1 normal, S2 normal and normal pulses. Extr asystoles are present. PMI is not displaced. Exam reveals no gallop and no friction rub. Murmur heard. Systolic murmur is present with a grade of 1/6 Mitral mechanical valve click Pulses: Carotid pulses are 2+ on the right side, and 2+ on the left side. Posterior tibial pulses are 2+ on the right side, and 2+ on the left side. Pulmonary/Chest: Effort normal and breath sounds normal. No accessory muscle usage. No resp iratory distress. He has no decreased breath sounds. He has no wheezes. He has no rhonchi. H e has no rales. Abdominal: Soft. Normal appearance, normal aorta and bowel sounds are normal. He exhibits n o abdominal bruit and no pulsatile midline mass. There is no hepatosplenomegaly. There is no tenderness. Musculoskeletal: He exhibits no edema. Neurological: He is alert and oriented to person, place, and time. Coordination normal. Skin: Skin is warm, dry and intact. No cyanosis. Nails show no clubbing. Psychiatric: He has a normal mood and affect. His mood appears not anxious. He does not exh ibit a depressed mood. ECG: Not done this visit. LAB RESULTS: LIPID Lab Results Component Value Date TRIG 102 07/03/2012 HDL 37.1 07/03/2012 LDL 129 07/03/2012 CHOLHDL 5.0 07/03/2012 CHEMISTRY Lab Results Component Value Date GLU 101 07/03/2012 NA 138 07/03/2012 K 3.5 07/03/2012 CL 104 07/03/2012 CO2 28 07/03/2012 CALCIUM 8.9 07/03/2012 ALKPHOS 90 07/03/2012 AST 17 07/03/2012 ALT 18 07/03/2012 BILITOT 0.4 07/03/2012 HEMATOLOGY No results found for this basename: wbc, hgb, hct, plt, hgbex I personally reviewed records from another healthcare provider. ASSESSMENT: 1. 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 A. Status post mechanical mitral valve replacement at [facility] in [place], [place], on . B. 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 C. Echocardiogram from 04/10/11 mild left atrial dilatation, normal left ventricular s ize with LVEF of 55-60%. Grade 1 left ventricular diastolic dysfunction. Normally functionin g bileaflet mechanical mitral replacement. A trace transvalvular MR. There is no evidence of vegetation seen. Mild TR. D. Today, patient seems to be doing well from cardiac standpoint. He is able to exer t himself an exercise without experiencing any dyspnea or angina. Patient is in a class I of [employer] functional class. There is no signs or symptoms of overt congest rusty heart failure. There is no fluid retention on physical exam. He continues on warfarin for his mechanical valve. 2. Hypertension: A. blood pressure is well-controlled 3. Hyperlipidemia. A. Lipid profile of 07/03/12 showed total cholesterol 186, triglycerides 102, HDL 37 , LDL 129. 4. Palpitations associated with premature ventricular contractions. A. 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 B. A Holter monitor from 02/27/05 revealed predominant normal sinus rhythm with a ve ry rare PAC and frequent PVCs. C. He has not had any symptoms of palpitations 5. Obesity. A. He has lost 30 pounds of weight in the past year. PLAN: 1. Patient has been encouraged to continue with same therapeutic medical regimen. He has been encouraged also to continue with regular physical activity and with a healthy diet. 2. Follow up appointment in 1 year or sooner if any concerns with echocardiogram. I, KAYLIE Fuentes, saw this patient under the direct supervision of Roxanne Patino MD Portions of this report were transcribed using voice recognition software. Every effort wa s made to ensure accuracy; however, inadvertent computerized portfolio management marketing errors may be pre sent. Electronically signed by: KAYLIE Fuentes 04/16/2013 13:29 documented in this encounter Plan of Treatment +--------+---------+ + + + | Date | Type | Specialty | Care Team | Description | +--------+---------+ + + + | 02/19/ | Office | Nephrology | Ismael Young MD | | | 2019 | Visit | | [address] [facility] | | | | | | [address] [place], [place] | | | | | | [address] | | | | | | | | +--------+---------+ + + + documented as of this encounter Visit Diagnoses + + | Diagnosis | + + | Hyperlipidemia - Primary Other and unspecified hyperlipidemia | + + | Hypertension Unspecified essential hypertension | + + | ENDOCARDITIS,MITRAL VALVE W/ENLARGED ANTERIOR LEAFLET VEG Endocarditis, valve | | unspecified, unspecified cause | + + documented in this encounter
--- OUTSIDE RECORDS SUMMARY | ~2019-02-03 | XMS | Encounter Summary ---
Demographics + + + | Address | [address] | | | [place] [address] | + + + | Home Phone [...] Team Providers + +------+ + | Care Office Machines Teacher Name | Role | Phone | [...] | | | | | plane | [place], [place] | | | | | | imbalance | [address] | | | | | | Acquired | Phone: | | | | | | flat back | [phone] | | | | | | syndrome | Fax: | | | | | | Spondylosis | [phone] | | | | | | without [...] | | | region | [place] | [place], [place] | | | | | without | [address] | [address] | | | | | neurogenic | Phone: | Phone: | | | | | claudication | [phone] | [phone] | | | | | | Fax: | Fax: | | | | | Radiculopath | [phone] | [phone] | | | | | y, lumbar | | | | | | | region | | | + +--------+ + + + + Encounter Details +--------+---------+ + + + | Date | Type | Department | Care Team | Description | +--------+---------+ + + + | 05/21/ | Office | [facility] Orthopaedics | Julian Carmona | Piriformis syndrome | | 2019 | Visit | & Rehabilitation | Adonis Edwards MD [address] | of both sides | | | | [address] | [address] | (Primary Dx); | | | | [address] [place], [place] | [place], [place] | Sagittal plane | | | | [address] | [address] | imbalance; Acquired | | | | [phone] | [phone] | flat back syndrome; | | | [...] breathing Codeine Nausea Social Hx: Worked for [employer]. Currently retired. Weekly physical activity regimen: walks, [...] [address] | | | | | | [place] [address] | | | | | | [phone] | | | | | | | [...]
--- OUTSIDE RECORDS SUMMARY | ~2019-02-03 | XMS | Encounter Summary ---
Demographics + + + | Address | [address] | | | [place] [address] | + + + | Home Phone | | + + + | Preferred Language | Unknown | + + + | Marital Status | | + + + | Gnosticism Affiliation | 1041 | + + + | Race | Unknown | + + + | Ethnic Group | Unknown | + + + Author + + + | Author | [facility] | | | and [place] | + + + | Organization | [facility] | | | [...] [place] | | | | | [address] | | + + + + + Care Team Providers + +------+ + | Care Heel Padder Name | Role | Phone | + [...] | Neurosurgery | Diagnoses | Otoniel, | Karthik, | | | Services | | Spinal | Bartolome Dawn, | Mat Miles MD | | | Required | | stenosis of | DO [address] | | | | | lumbar | [address] [place] | [address] [place], | | | | | region with | [place], [place] | [place] [address] | | | | | radiculopath | [address] | Phone: | | | | | y | Phone: | [phone] | | | | | | [phone] | Fax: | | | | | | Fax: | [phone] | | | | | | [phone] | | +--------+ + + + + + Reason for Visit + + + | Reason | Comments | + + + | Referral | status of referral to Neuro surgeon for back? | + + + Encounter Details +--------+ + + + + | Date | Type | Department | Care Team | Description | +--------+ + + + + | 02/15/ | Telephone | [place] [facility] | Bartolome Frederick | Referral (status of | | 2019 | | [facility] | E, DO [address] | referral to Neuro | | | | [facility] [address] | [place], [place] | surgeon for back?) | | | | [address] [place], | [address] | | | | | [place] [address] | [phone] | | | | | [phone] | | | +--------+ + + + [...] 2019 | Visit | | [address] [facility] | | | | | | [address] [place] | | | | | | [address] | | | | | | | | +--------+---------+ + + + + + +--------+ + + | Name | Type | Priori | Associated Diagnoses | Order Schedule | | | | ty | | | + + +--------+ + + | Michael | Outpatient | Routin | Spinal stenosis of | Ordered: 02/15/2018 | | Neurosurgery - AMB | Referral | e | lumbar region with | | | Referral | | | radiculopathy | | + + +--------+ + + documented as of this encounter Visit Diagnoses + + | Diagnosis | + + | Spinal stenosis of lumbar region with radiculopathy - Primary Spinal stenosis, lumbar | | region, without neurogenic claudication | + + documented in this encounter
--- OUTSIDE RECORDS SUMMARY | ~2019-02-03 | XMS | Encounter Summary ---
Demographics + + + | Address | [address] | | | [place] [address] | + + + | Home Phone | | + + + | Preferred Language | Unknown | + + + | Marital Status | | + + + | Judaism Affiliation | CAT | + + + [...] Team Providers + +------+ + | Care Staff Development Coordinator Name | Role | Phone | + +------+ + | Bartolome Frederick DO | PCP | | + +------+ + Encounter Details +--------+ + + + + | Date | Type | Department | Care Team | Description | +--------+ + + + + | 09/17/ | Document-Sc | [facility] | Michael Duribn MD | | | 2019 | anned | Neurosurgery at [address] | [address] | | | | | [address] | [address] | | | | | [address] | [place] [address] | | | | | [place], [place] | [phone] | | | | | [address] | | | | | | [phone] | | | +--------+ + + + [...] | 2020 | Visit | | [address] [facility] [address] | | | | | | [place] [address] | | | | | | [place] [address] | | | | | | [phone] | | | | | | | | +--------+---------+ + + + documented as of this encounter Procedures + +--------+ + + + | Procedure Name | Priori | Date/Time | Associated Diagnosis | Comments | | | ty | | | | + +--------+ + + + | OUTSIDE RADIOLOGY - | | 09/17/2018 | | Results for this | | MRI | | 12:00 AM | | procedure are in the | | | | PDT | | results section. | + +--------+ + + + documented in this encounter Results OUTSIDE RADIOLOGY - MRI (09/17/2018 12:00 AM PDT) + + + | Narrative | Performed At | + + + | | | + + + documented in this encounter Visit Diagnoses Not on filedocumented in this encounter"
--- OUTSIDE RECORDS SUMMARY | ~2019-02-03 | XMS | Encounter Summary ---
Demographics + + + | Address | [address] | | | [place] [address] | + + + | Home Phone | | + + + | Preferred Language | Unknown | + + + | Marital Status | | + + + | Hoahaoism Affiliation | 1041 | + + + [...] [place] | | | | | [address] | | + + + + + Care Team Providers + +------+ + | Care Escrow Agent Name | Role | Phone | + +------+ + | Bartolome Frederick DO | PCP | | + +------+ + Encounter Details +--------+ + + + + | Date | Type | Department | Care Team | Description | +--------+ + + + + | 03/16/ | Orders Only | [facility] | Brooke Nguyễn | | | 2018 | | CARDIOLOGY [place] | [address] | | | | | [address] | [address] | | | | | [place], [place] | [place] [address] | | | | | [address] | [phone] | | | | | [phone] | | | +--------+ + + + [...] Visit | | [address] [facility] | | | | | | [address] [place], [place] | | | | | | [address] | | | | | | | | +--------+---------+ + + + documented as of this encounter Procedures + +--------+ + + + | Procedure Name | Priori | Date/Time | Associated Diagnosis | Comments | | | ty | | | | + +--------+ + + + | EXTERNAL LAB: CBC | Routin | 03/16/2017 | | Results for this | | | e | 9:03 AM | | procedure are in the | | | | PST | | results section. | + +--------+ + + + | LIPID PANEL | Routin | 03/16/2017 | | Results for this | | | e | 9:03 AM | | procedure are in the | | | | PST | | results section. | + +--------+ + + + | HEMOGLOBIN A1C | Routin | 03/16/2017 | | Results for this | | | e | 9:03 AM | | procedure are in the | | | | PST | | results section. | + +--------+ + + + | COMPREHENSIVE | Routin | 03/16/2017 | | Results for this | | METABOLIC PANEL | e | 9:03 AM | | procedure are in the | | | | PST | | results section. | + +--------+ + + + documented in this encounter Results External Lab: CBC (03/16/2017 9:03 AM PST) + + + + + + | Component | Value | Ref Range | Performed | Pathologist | | | | | At | Signature | + + + + + + | WBC | 10.8 | 4.5 - 11.0 10 | EXTERNAL | | | | | | LAB | | + + + + + + | RED CELL | 4.16 (A) | 4.3 - 5.7 10 | EXTERNAL | | | COUNT | | | LAB | | + + + + + + | Hgb | 12.9 (A) | 13.5 - 18.0 | EXTERNAL | | | | | g/dL | LAB | | + + + + + + | Hematocrit, | 38.2 (A) | 41 - 50 % | EXTERNAL | | | POC | | | LAB | | + + + + + + | MCV | 91.9 | 81 - 99 fL | EXTERNAL | | | | | | LAB | | + + + + + + | MCH | 31 | 27 - 33 pg | EXTERNAL | | | | | | LAB | | + + + + + + | MCHC | 34 | 30 - 36 g/dL | EXTERNAL | | | | | | LAB | | + + + + + + | Platelet | 261 | 140 - 440 K/ L | EXTERNAL | | | Count | | | LAB | | | Plasma | | | | | + + + + + + | RDW-CV | 13.4 | 10.5 - 15.0 % | EXTERNAL [...] + + + | % Segmented | 73.3 | 39 - 80 % | EXTERNAL | | | | | | LAB | | | Neutrophils | | | | | + + + + + + | % | 13.6 (A) | 24 - 44 % | EXTERNAL | | | Lymphocytes | | | LAB | | + + + + + + | % Monocytes | 9.0 | 0 - 12 % | EXTERNAL | | | | | | LAB | | + + + + + + | % | 3.5 | 0 - 6 % | EXTERNAL [...] | | | + +---------+ + + Hemoglobin A1C (03/16/2017 9:03 AM PST) + + + + + + | Component | Value | Ref Range | Performed | Pathologist | | | | | At | Signature | + + + + + + | Hemoglobin | 5.3Comment: EST AVG | 5.7 % | EXTERNAL | | | A1c | Glucose 105 | | LAB | | + + + + + + + + | Specimen | + + | Blood specimen | | (specimen) | + + + +---------+ + + | Performing | Address | City/State/Zipcode | Phone Number | | Organization | | | | + +---------+ + + | EXTERNAL LAB | | | | + +---------+ + + Lipid Panel (03/16/2017 9:03 AM PST) + + + + + + | Component | Value | Ref Range | Performed | Pathologist | | | | | At | Signature | + + + + + + | Cholesterol | 162 | 200 mg/dL | EXTERNAL | | | | | | LAB | | + + + + + + | Triglycerid | 79 | 30 - 150 mg/dL | EXTERNAL | | | es | | | LAB | | + + + + + + | HDL | 37.8 (A) | 40 mg/dl | EXTERNAL | | | | | | LAB | | + + + + + + | LDL | 108 (A) | 100 mg/dL | EXTERNAL | | | Cholesterol | | | LAB | | | , | | | | | | Calculated, | | | | | | External | | | | | + + + + + + | LDl/HDL | | | EXTERNAL | | | Ratio | | | LAB | | + + + + + + | Chol/HDL | 4.3 | 4.97 | EXTERNAL | | | Ratio | | | LAB | | + + + + + + | VLDL | 16 | 4 - 40 mg/dL | EXTERNAL | | | | | | LAB | | + + + + + + | Non HDL | 124 | 130 | EXTERNAL | | | Chol. | | | LAB | | | (LDL+VLDL) | | | | | + + + + + + + + | Specimen | + + | Blood specimen | | (specimen) | + + + +---------+ + + | Performing | Address | City/State/Zipcode | Phone Number | | Organization | | | | + +---------+ + + | EXTERNAL LAB | | | | + +---------+ + + Comprehensive Metabolic Panel (03/16/2017 9:03 AM PST) + + + + + + | Component | Value | Ref Range | Performed | Pathologist | | | | | At | Signature | + + + + + + | Glucose, | 112 (A) | 70 - 100 mg/dL | EXTERNAL | | | Fasting | | | LAB | | + + + + + + | BUN | 45 (A) | 6 - 23 mg/dL | EXTERNAL | | | | | | LAB | | + + + + + + | Creatinine | 2.01 (A) | 0.70 - 1.25 | EXTERNAL | | | | | mg/dL | LAB | | + + + + + + | BUN/Creatin | 22.4 | 6.0 - 28.6 | EXTERNAL | | | ine Ratio | | | LAB | | + + + + + + | Calcium | 9.5 | 8.4 - 10.2 | EXTERNAL | | | | | mg/dL | LAB | | + + + + + + | Protein, | 7.0 | 6.0 - 8.0 g/dL | EXTERNAL | | | Total | | | LAB | | + + + + + + | Albumin | 4.5 | 3.5 - 5.0 | EXTERNAL | | | | | | LAB | | + + + + + + | Globulin | 2.5 | 1.8 - 3.5 | EXTERNAL | | | | | | LAB | | + + + + + + | A/G Ratio | 1.8 | 1.1 - 2.4 | EXTERNAL | | | | | | LAB | | + + + + + + | Bilirubin | 0.4 | 0.0 - 1.2 mg/dL | EXTERNAL | | | Total | | | LAB | | + + + + + + | ALP, | 105 | 31 - 120 | EXTERNAL | | | External | | | LAB | | + + + + + + | ALT | 19 | 7 - 52 U/L | EXTERNAL | | | | | | LAB | | + + + + + + | AST | 19 | 13 - 39 U/L | EXTERNAL | | | | | [...] + + + + | CO2 | 26 | 19 - 31 mmol/L | EXTERNAL | | | | | | LAB | | + + + + + + | Anion Gap | 15.6 | 7 - 21 mmol/L | EXTERNAL | | | | | | LAB | | + + + + + + | Estimated | 33 (A) | 60 mg/dL | EXTERNAL | [...]
--- OUTSIDE RECORDS SUMMARY | ~2019-02-03 | XMS | Encounter Summary ---
Demographics + + + | Address | [address] | | | [place] [address] | + + + | Home Phone | | + + + | Preferred Language | Unknown | + + + | Marital Status | | + + + | Christianity Affiliation | CAT | + + + [...] Providers + +------+ + | Care Sales Administration Specialist Name | Role | Phone | + +------+ + | OtonielBartolome DO | PCP | | + +------+ + Encounter Details +--------+--------+ + + + | Date | Type | Department | Care Team | Description | +--------+--------+ + + + | 12/05/ | Travel | | | | | 2019 | | | | | +--------+--------+ + [...] | | | | | [place] [address] | | | | | | [phone] | | | | | | | | +--------+---------+ + + + documented as of this encounter Visit Diagnoses Not on filedocumented in this encounter"
--- OUTSIDE RECORDS SUMMARY | ~2019-02-03 | XMS | Encounter Summary ---
Demographics + + + | Address | [address] | | | [place] [address] | + + + | Home Phone | | + + + | Preferred Language | Unknown | + + + | Marital Status | | + + + | Gnosticism Affiliation | 1041 | + + + | Race | Unknown | + + + | Ethnic Group | Unknown | + + + Author + + + | Author | [facility] | | | and [place] | + + + | Organization | [facility] [...] [place] | | | | | [address] | | + + + + + Care Team Providers + +------+ + | Care Receiver Setter Name | Role | Phone | + +------+ + | Khai Ackerman DO | PCP | Unavailable | + +------+ + Reason for Visit + + + | Reason | Comments | + + + | Appointment | | + + + Encounter Details +--------+ + + + + | Date | Type | Department | Care Team | Description | +--------+ + + + + | 01/27/ | Telephone | [facility] | [place], | [place] | | 2013 | | CARDIOLOGY [address] | [place] [address] | | | | | [place], | [place], | | | | | [place] [address] | [place] [address] | | | | | [phone] | [phone] | | | | | | | [...] 2019 | Visit | | [address] [facility] | | | | | | [address] [place] | | | | | | [address] | | | | | | | | +--------+---------+ + + + documented as of this encounter Visit Diagnoses Not on filedocumented in this encounter"
--- OUTSIDE RECORDS SUMMARY | ~2019-02-03 | XMS | Encounter Summary ---
Demographics + + + | Address | [address] | | | [place] [address] | + + + | Home Phone | | + + + | Preferred Language | Unknown | + + + | Marital Status | | + + + | Hoahaoism Affiliation | 1041 | + + + | Race | Unknown | + + + | Ethnic Group | Unknown | + + + Author + + + | Author | [facility] | | | and [place] | + + + | Organization | [facility] | | | [...] [place] | | | | | [address] | | + + + + + Care Team Providers + +------+ + | Care Cableway Operator Name | Role | Phone | + +------+ + | Bartolome Frederick DO | PCP | | + +------+ + Encounter Details +--------+ + + + + | Date | Type | Department | Care Team | Description | +--------+ + + + + | 07/24/ | Orders Only | [facility] | Conversion | | | 2017 | | NEPHROLOGY [place] | Transaction, | | | | | [address] | Provider Unknown | | | | | [address] [place], [place] | | | | | | [address] | (Fax) | | | | | [phone] | | | +--------+ + + + [...] 2020 | Visit | | [address] [facility] | | | | | | [address] [place] | | | | | | [address] | | | | | | (Fax) | | +--------+---------+ + + + documented as of this encounter Procedures + +--------+ + + + | Procedure Name | Priori | Date/Time | Associated Diagnosis | Comments | | | ty | | | | + +--------+ + + + | BASIC METABOLIC | Routin | 07/24/2016 | | Results for this | | PANEL | e | 9:40 AM | | procedure are in the | | | | PDT | | results section. | + +--------+ + + + documented in this encounter Results Basic Metabolic Panel (07/24/2016 9:40 AM PDT) + + + + + + | Component | Value | Ref Range | Performed | Pathologist | | | | | At | Signature | + + + + + + | Glucose, | 111 (A) | 70 - 100 mg/dL | EXTERNAL | | | Fasting | | | LAB | | + + + + + + | BUN | 25 (A) | 6 - 23 mg/dL | EXTERNAL | | | | | | LAB | | + + + + + + | Creatinine | 1.43 (A) | 0.70 - 1.25 | EXTERNAL | | | | | mg/dL | LAB | | + + + + + + | BUN/Creatin | 17.5 | 6.0 - 28.6 | EXTERNAL | | | ine Ratio | | | LAB | | + + + + + + | Calcium | 9.2 | 8.4 - 10.2 | EXTERNAL | | | | | mg/dL | LAB | | + + + + + + | Na | 140 | 132 - 143 | EXTERNAL | [...] + + + | Anion Gap | 18.4 | 7 - 21 mmol/L | EXTERNAL [...]
--- OUTSIDE RECORDS SUMMARY | ~2019-02-03 | XMS | Encounter Summary ---
Demographics + + + | Address | [address] | | | [place] [address] | + + + | Home Phone | | + + + | Preferred Language | Unknown | + + + | Marital Status | | + + + | Muslim Affiliation | CAT | + + + | Race | White | + + + | Ethnic Group | Not or | + + + Author + + + | Author | [facility] | + + + | Organization | [facility] | + + + | Address | [...] Team Providers + +------+ + | Care Hazardous Materials Waste Technician Name | Role | Phone | + +------+ + PCP | Unavailable | + +------+ + Encounter Details +--------+ + + + + | Date | Type | Department | Care Team | Description | +--------+ + + + + | 07/09/ | DELETED | Preoperative | Consult, | ANESTHESIA/SEDATION | | 2002 | TRANSCRIPTI | Medicine Clinic at | Anesthesia [address] | | | | ON | [address] | [facility] | | | | | BELIA Giordano [facility] | [place], [place] | | | | | Mailcode: CH4S | [address] | | | | | [facility] | | | | | | and [place], | | | | | | Building [address] [place] [address] | | | | | | [place], [place] | | | | | | [address] | | | | | | [phone] | | | +--------+ + + + [...] [address] | | | | | | [address] | | | | | | [place] [address] | | | | | | [phone] | | | | | | | | +--------+---------+ + + + documented as of this encounter Procedures + +--------+ + + + | Procedure Name | Priori | Date/Time | Associated Diagnosis | Comments | | | ty | | | | + +--------+ + + + | ANESTHESIA/SEDATION | | 07/09/2002 | | Results for this | | | | 11:23 AM | | procedure are in the | | | | PDT | | results section. | + +--------+ + + + documented in this encounter Visit Diagnoses Not on filedocumented in this encounter"
--- OUTSIDE RECORDS SUMMARY | ~2019-02-03 | XMS | Encounter Summary ---
Demographics + + + | Address | [address] | | | [place] [address] | + + + | Home Phone [...] Team Providers + +------+ + | Care Heavy Equipment Service Technician Name | Role | Phone | + +------+ + | Bartolome Frederick DO | PCP | | + +------+ + Encounter Details +--------+ + + + + | Date | Type | Department | Care Team | Description | +--------+ + + + + | 12/05/ | Hospital | Diagnostic Imaging | Jaison Barber, | | | 2019 | Encounter | at [facility] | PA-C [address] | | | | | Healthcare [address] | [place], [place] | | | | | [address] [place], | [address] | | | | | [place] [address] | | | | | | [phone] | | | +--------+ + + + [...] | | 0 | | | | Glyggyi-Bglglpwhe-Un | daily. | | | | | [...] | | | | | | | yard stocker | | | | | + + + +---------+ + + documented as of this encounter Plan of Treatment +--------+---------+ + + + | Date | Type | Specialty | Care Team | Description | +--------+---------+ + + + | 04/30/ | Office | Neurological Surgery | Michael Durbin MD | | | 2019 | Visit | | [address] [facility] [address] | | | | | | [address] | | | | | | [place] [address] | | | | | | [phone] | | | | | | | [...] RADIOLOGY | [address] | [place] [address] | [phone] | | VOICE RECOGNITION | | | | + + + + + documented in this encounter Visit Diagnoses + + | Diagnosis | + + | S/P lumbar fusion Arthrodesis status | + + documented in this encounter"
--- OUTSIDE RECORDS SUMMARY | ~2019-02-03 | XMS | Encounter Summary ---
Demographics + + + | Address | [address] | | | [place] [address] | + + + | Home Phone | | + + + | Preferred Language | Unknown | + + + | Marital Status | | + + + | Buddhist Affiliation | 1041 | + + + [...] | [address] | | | | | [facility] | | | | | [address] | | + + + + + Care Team Providers + +------+ + | Care Real Estate Services Administrator Name | Role | Phone | + +------+ + PCP | Unavailable | + +------+ + Encounter Details +--------+ + + + + | Date | Type | Department | Care Team | Description | +--------+ + + + + | 10/29/ | [facility] | [facility] | Khai Ackerman | | | 2001 | Encounter | MED CTR LAB[facility]ORY | DO Bari | | | | | [address] | | | | | | [place] | | | | | | [address] | | | | | | [phone] | | | +--------+ + + + [...] 2020 | Visit | | [address] [facility] [address] | | | | | | [address] [place], [place] | | | | | | [address] | | | | | | | | +--------+---------+ + + + documented as of this encounter Visit Diagnoses Not on filedocumented in this encounter"
--- OUTSIDE RECORDS SUMMARY | ~2019-02-03 | XMS | Encounter Summary ---
Demographics + + + | Address | [address] | | | [place] [address] | + + + | Home Phone | | + + + | Preferred Language | Unknown | + + + | Marital Status | | + + + | Jain Affiliation | 1041 | + + + | Race | Unknown | + + + | Ethnic Group | Unknown | + + + Author + + + | Author | [facility] | | | and [place] | + + + | Organization | [facility] | | | and [...] [place] | | | | | [address] | | + + + + + Care Team Providers + +------+ + | Care Packer Fuser Name | Role | Phone | + +------+ + | Bartolome Frederick DO | PCP | | + +------+ + Encounter Details +--------+---------+ + + + | Date | Type | Department | Care Team | Description | +--------+---------+ + + + | 10/11/ | Office | [facility] | Aly Shukla, | CKD (chronic kidney | | 2019 | Visit | NEPHROLOGY [place] | CLIENT REPORTING ASSOCIATE [address] | disease), stage III | | | | [address] | [place] | ([facility]) (Primary Dx) | | | | [address] | [facility] | | | | | [place] | [address] | | | | | [address] | [phone] | | | | | [phone] | | | +--------+---------+ + + + Social History [...] | Shots of liquor 0-1 | | [place]) | | | Standard drinks or | [...] in this encounter Patient Instructions Patient Instructions Aly Shukla ARNP - 10/11/2018 9:40 AM PDTStop losartan due to the drop in renal function, Creatinine up to 2.4 from 1.5. Keep hydrated with water. BMP in 1 week to recheck renal function. Restart losartan when renal function is stable. He will report back to me his home BP readings if they fall outside of the optimal provi ded range. At that time, I will decide whether any change to his vasoactive regimen is eloisa daniels. He will F/U with the Cardiology team regularly. documented in this encounter Progress Notes Aly Shukla ARNP - 10/11/2018 9:40 AM PDT Patient Active Problem List Diagnosis Proteinuria CKD (chronic kidney disease), stage III Primary osteoarthritis involving multiple joints Tobacco abuse History of mitral valve replacement with mechanical valve Hypertension Hyperlipidemia Chronic kidney disease Aortic stenosis, mild Dear Dr Frederick: I saw your patient Mr. De La Paz in the office today. As you are familiar with his case, I w ill not state his past history in detail. Briefly, he is a 68 y.o. male patient with past h istory as delineated above. he is here to follow up on his CKD and his proteinuria. He tell s me first knew about that problem in late 2013; he was started on Losartan, then stopped in early 2018 due to low BP, but has since restarted. He had Left TKR surgery in Mar 2017. *he tells me that he had bacteremia in 2012 that apparently went long before a diagnosis wa s made; he was discovered then to have a mitral valve IE & needed it replaced; he was on a l engthy IV Abx course he tells me ([facility]). Reports he had a GI bleed in late 2017, dark stools, was hospitalized at [facility] in [place] or a few days. Reports no source was found. No records for this to review today. The patient has history of hypertension since ~2004. his BP control has been reportedly tariq quate. he denies any history of prolonged exposure to NSAIDs or recent exposure to known nep hrotoxins. he denies any recurrent nephrolithiasis or pyelonephritis. he tells me that he's had no history of urinary retention, gross hematuria or dysuria. he has no incontinence symp toms. No symptoms of UTI. No history of frequency, nocturia, weak urinary stream, hesitancy, intermittence, incomplete emptying or urgency. he has 0 nightly nocturia. No history of passing kidney stones. he has no foamy urine either. his baseline Creatinine is 1.1 from 2016. There is no family history of renal genetic diseases such as PKD. he says that he feels 'good ' today, he has been having watery diarrhea for the past two da ys, watery. He is on losartan 100mg daily, I'm not sure when this was restarted. he denies any blurred vision tinnitus, headache, fever, chills, or cough. No nausea, vomit ing, abdominal pain, diarrhea, melena, or hematochezia. No chest pain, palpitation, dizzine ss, loss of consciousness, orthopnea, paroxysmal nocturnal dyspnea, or leg edema. The following portions of the patient's history were reviewed and updated as appropriate: a llergies, current medications, past medical history, past social history, past surgical hist ory, family history and problem list. * U/S from 06/2016, showing no evidence of any significant renal anatomic abnormalities; he had a small simple cyst on right, and a minimal right hydronephrosis. As in History of Present Illness & in Assessment. All the pertinent systems were reviewed a nd were otherwise negative. Current Outpatient Medications on File Prior to Visit Medication Sig Dispense Refill Ascorbic Acid (VITAMIN [...] tablet Take 100 mg by mouth Daily. rOPINIRole (REQUIP) 4 mg tablet Take 4 [...] days is 5mg No current facility-administered medications on file prior to visit. Physical Exam: BP 122/62 | Pulse 84 | Ht 1.778 m (5' 10") | Wt 93.6 kg (206 lb 4.8 oz) | BMI 29.60 kg/ m General appearance: Pleasant, not in acute distress. Neck: Supple without tracheal deviation or jugular venous distension. Head and ENT: Head is atraumatic. The oropharynx is without erythema or thrush. Eyes: Anicteric. The extraocular muscle movements are normal. Lungs: Clear to auscultation bilaterally. There are no wheezes. Heart: Regular rate and rhythm without any rub, gallop. Mitral click heard with a loud S1. Grade 3 early systolic murmur, best at the USB; a late systolic murmur is beat heard at the apex. Abdominal exam: Soft and nontender with normal bowel sounds. Musculoskeletal: No costovertebral angle tenderness bilaterally. Extremities: Warm to touch with trace leg edema. There is no cyanosis. Mild changes of st asis dermatitis & some varicosities noted in the legs. Skin: There are no rashes, petechiae, or ecchymosis. Neurological: Awake, alert, and oriented to time, place, and person. Normal gross motor po wer. There is no asterixis. Psychiatric: The patient s behavior is normal. Judgment and thought content are normal. Most recent CKD labs: Lab Results Component Value Date CREA 1.04 07/20/2014 BUN 46 (A) 10/02/2018 NA 138 10/02/2018 K 5.1 10/02/2018 CL 103 10/02/2018 CO2 27 10/02/2018 Lab Results Component Value Date CREA 1.04 07/20/2014 BUN 46 (A) 10/02/2018 NA 138 10/02/2018 K 5.1 10/02/2018 CL 103 10/02/2018 CO2 27 10/02/2018 Lab Results Component Value Date CREA 1.04 07/20/2014 Lab Results Component Value Date EGFR 44 03/07/2018 EGFR 45 (A) 08/16/2017 EGFR 43 (A) 04/19/2017 Lab Results Component Value Date HGB 13.4 (A) 03/07/2018 HGB 9.7 (L) 11/20/2017 No results found for: FERRITIN, IRON, TIBC Assessment: Mr. De La Paz is a 68 y.o. male patient with stage III CKD on a background of longstanding hyp ertension. 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 Left TKR surgery Mar 2017. Losartan 25mg was stopped in early 2017 due to hypotension. RENAL FUNCTION: Below baseline, likely due to the watery diarrhea and being on losartan BLOOD PRESSURE: Reports controlled BLOOD SUGAR: Reports it normal ELECTROLYTES: K upper limit of normal ANEMIA: Improved. WBCs up - will monitor VITAMIN D: To be checked thru your office PARATHYROID HORMONE: Ok URIC ACID: Ok PROTEINURIA: Sub nephrotic URINALYSIS: No UTI or hematuria VOLUME STATUS: Euvolumic. Discussions/Recommendations: I discussed today with Mr. De La Paz the meaning of his CKD and the interaction of that wit h his hypertension. I stressed the importance of keeping his BP controlled and avoiding getting dehydrated i f we are to have a chance at helping preserve his renal function. He showed good understand ing. I gave him instructions on how to chart his blood pressure in the appropriate manner at home. He is to call us if they fall outside of the optimal provided range. He will bring his sphygmomanometer for validation once a year. He will strictly abide by a low salt diet and will avoid all kinds of NSAIDs for analges ia. He will also follow a relatively low potassium diet. Also: Stop losartan due to the drop in renal function, Creatinine up to 2.4 from 1.5. Keep hydrated with water. BMP in 1 week to recheck renal function. Restart losartan when renal function is stable. He will report back to me his home BP readings if they fall outside of the optimal provi ded range. At that time, I will decide whether any change to his vasoactive regimen is warra nted. He will F/U with the Cardiology team regularly. He will continue to F/U with your office regularly. He will have a RFP, Magnesium, CBC, Urine total btccots-cg-apsbuaqixx ratio before he co mes back in [address] Frederick for the opportunity to see this patient in F/U today. Please do not he sitate to call me at any time with questions or concerns. Truly yours, Aly LOTT [facility] Nephrology documented in this encounter Plan of Treatment +--------+---------+ + + + | Date | Type | Specialty | Care Team | Description | +--------+---------+ + + + | 02/19/ | Office | Nephrology | Ismael Young MD | | | 2019 | Visit | | [address] [facility] | | | | | | [address] [place], [place] | | | | | | [id number] | | | | | | | | +--------+---------+ + + + + +------+--------+ + + | Name | Type | Priori | Associated Diagnoses | Order Schedule | | | | ty | | | + +------+--------+ + + | Basic Metabolic | Lab | Routin | CKD (chronic | Expected: | | Panel | | e | kidney disease), | 10/18/2018, Expires: | | | | | stage III (HCC) | 11/10/2018 | + +------+--------+ + + documented as of this encounter Visit Diagnoses + + | Diagnosis | + + | CKD (chronic kidney disease), stage III (HCC) - Primary Chronic kidney disease, Stage | | III (moderate) | + + documented in this encounter
--- OUTSIDE RECORDS SUMMARY | ~2019-02-03 | XMS | Encounter Summary ---
Demographics + + + | Address | [address] | | | [place] [address] | + + + | Home Phone | | + + + | Preferred Language | Unknown | + + + | Marital Status | | + + + | Christian Affiliation | CAT | + + + [...] Team Providers + +------+ + | Care Manager Animation Name | Role | Phone | + [...] | 2020 | Visit | | [address] [facility] [address] | | | | | | [address] | | | | | | [place] [address] | | | | | | [phone] | | | | | | | [...] | | | | | | beenremoved. [place] | | | | | | catheter [...] | | + +---------+ + + | [facility] DEPARTMENT OF | | | | | [...] thoracicinlet. | | | | | | [place] catheter tip | | | | | [...] | | + +---------+ + + | [facility] | | | | | RADIOLOGY | | | | + +---------+ + + documented in this encounter Visit Diagnoses Not on filedocumented in this encounter"
--- OUTSIDE RECORDS SUMMARY | ~2019-02-03 | XMS | Encounter Summary ---
Demographics + + + | Address | [address] | | | [place] [address] | + + + | Home Phone [...] Team Providers + +------+ + | Care Ui Ux Developer Name | Role | Phone | [...] Description | +--------+---------+ + + + | 11/06/ | Surgery | [facility] | Michael Shelley MD | EXTREME LATERAL | | 2019 | | OP LOC [address] | [address] | L2-L4 INTERBODY | | | | Ave [place], [place] | [address] | FUSION/POSTEROLATERA | | | | [address] | [place] [address] | L L2-4 FUSION | | | | | [phone] | STABILIZATION | | | | | | | [...] might be different fr om the original. [facility] discharge Summary Discharging Provider: Malik Milner MD [...] by neurosurgery and their discussion with patient's gage maker which was planned prior to the procedure. [...] conservative treatments. He followed up with neurosu rgery outpatient. He was scheduled for lumbar fusion procedure by neurosurgery team. Nathan montero has previous history of mitral valve replacement in the past. Neurosurgery team ilana johnston plan for anticoagulation and bridging post surgery with patient's primary gage maker Zack Jennings. Patient underwent above-noted procedure on [...] bridging with Lovenox post surgery with patient's gage maker jonathan singleton. Patient will be discharged on Lovenox and Coumadin. Dose of Lovenox and Coumadin were disc ussed with the patient. He will follow-up with INR clinic close to his home and Deanna Ridley son will manage patient's INR. He will continue Lovenox until his INR is between 2.5-3.5. He will follow-up with his primary gage maker Dr. Jennings for further instructions regarding this post discharge. Patient received perioperative antibiotics. He was given adequate supply of pain medications at the time of discharge. Follow-ups were discussed. Patient left the hospital with his family. About 30 minutes after discharge we were notified by lab that patient's 1/2 blood cultures came back positive for gram-positive [...] on and then dose adjust per your gage maker What changed: how much to take additional instructions CONTINUE taking these medications ascorbic acid SR 1,000 mg Tab Take 500 mg by mouth once daily in the evening. atorvastatin 20 mg Tab Commonly known as: LIPITOR Take 20 mg by mouth once daily in the evening. Acjblsr-Egjssuxrb-Owkg Tab Commonly known as: VSQNROJ-BGLXAQQTV-AUVZ Take by mouth once daily. Ferrous Sulfate [...] -No forward bending to the floor to poultry picking machine tender objects -Keep head above the level of [...] daily. IN R on Sunday at the [facility] with Deanna Quinn. Lovenox dose may [...] NOT RESTART THESE MEDICATIONS UNTIL CLEARED BY [facility] NEUROS[facility]GERY. Activity: -Activity instructions: no strenuous exercise, no bending/twisting, lifting restricted to < 1/2 gallon of milk in weight. -No forward bending to the floor to poultry picking machine tender objects -Keep head above the level of [...] 10:45 AM Office Address: Dr. Michael Shelley [facility] [address], [address] [place] [address] [id number] INR Standing Status: Future Expected By: 11/11/18 Standing Exp. Date: 12/11/19 Basic Metabolic Set (Na, K, Cl, TCO2, Bun, Cr, Glu, Ca) Standing Status: Future Expected By: 11/11/18 Standing Exp. Date: 12/11/19 Follow Up: Future Appointments Provider Department Dept Phone Center 12/05/2018 11:00 AM Jaison Barber [facility] at [facility] [phone] [facility] Neurosur Schedule the following appointment(s) when you get home Bartolome Frederick DO In 1 week. Specialty: Family Medicine Contact information [address] [place] [address] Michael Shelley MD In 3 weeks. Specialty: Neurological Surgery Contact information [address] [place] [address] [place] [phone] Wesley Jennings MD In 1 week. Specialty: Cardiovascular Diseases Contact information [address] [place] [facility] [address] Discharge Physical Exam: Last 24 hour min/max [...] 10:45 AM Office Address: Dr. Michael Shelley [facility] [address], [address] [place] [address] Discharge Instr - Activity Jaison Barber PA-C - 11/07/2018 7:32 AM PDTActivity: -Activity instructions: no strenuous exercise, no bending/twisting, lifting restricted to < 1/2 gallon of milk in weight. -No forward bending to the floor to poultry picking machine tender objects -Keep head above the level of [...] surgery. ANTICOAGULATION: Warfarin 2.5 mg 11/09/18 and 10/6/10 with Lovenox 80 mg SQ twice daily. IN R on Sunday at the [facility] with Deanna Quinn. Lovenox dose may [...] NOT RESTART THESE MEDICATIONS UNTIL CLEARED BY [facility] NEUROSURGERY. Activity: -Activity instructions: no strenuous exercise, no bending/twisting, lifting restricted to < 1/2 gallon of milk in weight. -No forward bending to the floor to poultry picking machine tender objects -Keep head above the level of [...] 10:45 AM Office Address: Dr. Michael Shelley [facility] [address], [address] [place] [phone] AttachmentsThe following attachments cannot be sent through Care Everywhere.Lumbar Spinal F usion: Post-op (Amharic)documented in this encounter Medications at Time of [...] | | 0 | | | | Tjoxmli-Tmhojnlhi-Vi | daily. | | | | | [...] | | | | | | | gage maker | | | | | + + [...] that he wo uld do so LAMIN. ello Cisneros RN - 11/09/2018 1:50 PM PDTPt dc'd to home in care of . All belongings sent with pt. AVS reviewed with pt. All questions answered. Note: Positive BC notification after pt had left. Dr. Milner spoke with pt @ 1515 and informed pt to go get additional BC drawn (in order to r/o contamination), take temperature 2x/day and notify primary MD if febrile. Electronicall y signed by Tello Lowry RN at 11/09/2018 3:22 PM Malik Hollingsworth [...] I will convey my recommendations to Dr. Yam with neurosurgery. lf, Malik Dixon MD - 11/08/2018 7:30 PM PDTForma tting [...] mg 0.4 mg, oral, DAILY Given: 11/08 1006 warfarin (COUMADIN) tablet 5 mg 5 mg, [...] mg 5 mg, oral, Q3H PRN Given: 10/04 1726 polyethylene glycol (MIRALAX) packet 34 g 34 g, oral, TID PRN Ordered CBC with diff last 72 hours (or 3 results) - Refreshable Recent Labs 11/06/18 1432 11/07/182 11/08/18 0241 WBC 13.00* 10.40 12.00* HB 10.8* 10.3* 9.4* HCT 33.0* 30.5* 28.1* PLT 217 215 194 NEUTROPERC -- 75.4* 79.1* LYMPHPERC -- 12.0* 7.8* MONOPERC -- 10.1* 11.4* BASOPERC -- 0.3 0.5 EOSPERC -- 2.2 1.2 Recent Labs 10/24/18 1205 11/06/18 1432 11/07/182 11/07/18 0648 11/08/18 0241 NA 138 -- [...] different fr om the original. SARAH Rai [facility] [address] [place] [address] NEUROSURGERY PROGRESS NOTE PATIENT NAME: Lupillo De [...] QPM, Josh Gaona MD, 20 mg at 10/03/19 2057 baclofen (LIORESAL) tablet 20 mg, 20 mg, [...] has no apparent deficits with short or longterm memory. MOTOR EXAM: Motor strength is stable [...] He follows with Dane Quinn at the [facility] and he will need to see [...] po qhs and get an INR on ay Pt would like to d/c home tomorrow James Jones MD [facility] Department of Neurological Paint Prep TechnicianPlant Operations Coordinator Maral Ibarra RN - 11/08/2018 10:19 AM PDTCase Management Initial Assessment Reason for Admission: S/P Minimally invasive L2-4 anterior and posterior lumbar fusion 03/26 Admitted From: Home Emergency Contact: Primary Emergency Contact: Ai De La Paz Relation: Spouse Tammie Leblanc / Daughter / [phone] (c) [phone] (h) Past Medical History: M40.295 (ICD-10-CM) - [...] anxious to be discharged. He lives in [place] and his daughter is he re from [place], [place], to provide transportation and needs to be back at work 11/11/18. Pat ient has his TLSO brace and 4WW. Anticipated Discharge Needs: To be determined. Assessment done by: Maral TYSON head still operator Nicole Mullen RN - 11/07/2018 3:53 PM PDT [place] RN Handoff Note SBAR Handoff report provided to: TRINH Duarte Handoff process completed: questions answered for receiving RN, patient/room safety check p erformed and additional comments: Neuros q 4 Recommendations forward Pain control Watch for bleeding lovenox Barriers to discharge Pain control arred Bunn MD - 11/07/2018 1:16 PM PDTCRITICAL CARE PROGRESS NOTE Author: Jarred Bunn MD Lupillo De La Paz is a 68 y.o. male with a PMH of [facility] MVR, CKD, who presented on for elective [...] extremity edema skin: no rash or lesions IOUSYaMichael de leon MD - 11/07/2018 9:25 AM PDT Michael Shelley MD [facility] [address] [place] [address] NEUROSURGERY PROGRESS NOTE PATIENT NAME: Lupillo De [...] infusion (RTU) 1,200 Units/hr int ravenous CONTINUOUS MARY Espitia 12 mL/hr at 11/07/18 0604 1,200 Units/hr [...] BID Josh Gaona MD 2 tablet at 11/07/18904 spironolactone (ALDACTONE) tablet 25 mg 25 mg oral DAILY Josh Gaona MD tamsulosin (FLOMAX) capsule 0.4 mg 0.4 mg oral DAILY Josh Gaona MD 0.4 mg at 04/23 ALLERGIES: Allergies Allergen Reactions Penicillins Anaphylaxis Stopped [...] has no apparent deficits with short or longterm memory. MOTOR EXAM: Motor strength is stable [...] pain who presented on 11/06/2018 after underg [facility] minimally invasive lumbar spinal fusion (L2-L4) with minimal EBL by Dr. Shelley, and in ICU post-op for monitoring and heparin bridging. He has previously been anticoagulated with cou madin and was bridged with lovenox prior to surgery, last dose on 11/05. On his arrival to [facility] he was hemodynamically stable and remains stable [...] personally and independently examined this pt and [id number] caring for thi s patient to include [...] Michael Shelley MD | | | 2019 | Visit | | [address] | | | | | | [address] | | | | | | [place] [address] | | | | | | [phone] | | | | | | | [...] [address] | [place] [address] | | | LAB | | | [...] [facility] | [address] | [place] [address] | | | LAB | | | [...] [facility] | [address] | [place] [address] | | | LAB | | | [...] | | [facility] | | | DOMINICAN | | | | | + +---------+ [...] | + + + + + | [facility] | [address] | [place] [address] | | | LAB | | | [...] | | Not Detected result for the [employer] antimicrobial resistance gene | [facility] | | [...] | + + + + + | [facility] | [address] | [place] [address] | | | LAB | | | [...] | | | clusters (AA)Comment: | | [facility] | | | | This is [...] [facility] | [address] | [place] [address] | | | LAB | | | [...] [facility] | [address] | [place] [address] | | | LAB | | | [...] [facility] | [address] | [place] [address] | | | LAB | | | [...] | | [facility] | | | DOMIN[facility] | | | | | + +---------+ [...] [facility] | [address] | [place] [address] | | | LAB | | | [...] [facility] | [address] | [place] [address] | | | LAB | | | [...] [facility] | [address] | [place] [address] | | | LAB | | | [...] [facility] | [address] | [place] [address] | | | LAB | | | | + + + + + VIDHI BRISENO ONLY (11/08/2018 12:18 AM PDT) + + [...] [address] | [place] [address] | | | LAB | | | [...] [facility] | [address] | [place] [address] | | | LAB | | | [...] [facility] | [address] | [place] [address] | | | LAB | | | [...] RADIOLOGY | [address] | [place] [address] | [phone] | | VOICE RECOGNITION | | | [...] | + + + + + | [facility] | [address] | [place] [address] | | | LAB | | | [...] [address] | [place] [address] | | | LAB | | | [...] [facility] | [address] | [place] [address] | | | LAB | | | [...] | | [facility] | | | DOMIN[place] | | | | | + +---------+ [...] [address] | [place] [address] | | | LAB | | | [...] [facility] | [address] | [place] [address] | | | LAB | | | [...] [facility] | [address] | [place] [address] | | | LAB | | | [...] to this test. | | | | [facility] | | | RO LAB | + + + + + + + + | Performing | Address | City/State/Zipcode | Phone Number | | Organization | | | | + + + + + | [facility] | [address] | [place] [address] | | | LAB | | | [...] [facility] | [address] | [place] [address] | | | LAB | | | [...] [facility] | [address] | [place] [address] | | | LAB | | | | + + + + + MAGNESIUM, PLASMA (11/06/2018 2:32 PM PDT) + +-------+ + + + | Component | Value | Ref Range | Performed | Pathologist | | | | | At | Signature | + +-------+ + + + | MAGNESIUM,P | 1.8 | 1.6 - 2.6 mg/dL | [facility] | | | LASMA | | | [...] [facility] | [address] | [place] [address] | | | LAB | | | [...] | | [facility] | | | [facility] | | | | | + +---------+ [...] | + + + + + | [facility] | [address] | [place] [address] | | | LAB | | | [...] RADIOLOGY | [address] | [place] [address] | [phone] | + + + + + X-RAY [...] RADIOLOGY | [address] | [place] [address] | [phone] | + + + + + CARDIOLOGY [...] | | | + +--------+ + +------+------+ +-------+ + +---+---+ | Given | 11/10/19 [...] +---+---+ | | | +---+---+ + +-------+ +---------+---+ + | bacitracin (BACIIM) injection | Given | 11/07/19 | 50,000 | | Surgical | | INTRAPROCEDURE PRN, Starting Wed | | 19 10:34 | Units | | Site | | 11/06/18 at 1034, Until Wed | | AM PDT | | | | | 11/06/18 at 1131 | | | | | | + +-------+ +---------+---+ + +---+---+ | | | +---+---+ + +-------+ +-------+---+---+ | baclofen (LIORESAL) tablet 20 | Given | 11/09/19 | 20 mg [...] +---+---+ | | | +---+---+ + +-------+ +-------+---+ + | bupivacaine-EPINEPHrine | Given | 11/07/19 | 30 mL | | Surgical | | (MARCAINE-EPINEPHRINE (PF)) 0.5 | | 19 11:07 | | | Site | | %-1:200,000 soln INTRAPROCEDURE | | AM PDT | | | | | PRN, Starting Sun11/06/18 at | | | | | | | 1107, Until Sun11/06/18 at 1131 | | | | | | + +-------+ +-------+---+ + +---+---+ | | | +---+---+ + +-------+ +-------+---+---------+ | enoxaparin (LOVENOX) injection | Given | 11/10/19 | 80 mg | | Abdomen | | 80 mg 80 mg, subcutaneous, EVERY | | 19 12:11 | | | | | 12 HOURS, First dose on Sun | | PM [...] | | | | + +-------+ +-------+---+---+ + +---+ | | | + +---+ | labetalol (TRANDATE) IV | | | injection 5-10 mg 5-10 mg, | | | intravenous, EVERY 4 HOURS | | | NEEDED, Starting 11/06/18 at | | | 1412, Until 11/09/18 at 2251, | | | hypertension, second line | | + +---+ | | | + +---+ + + + +---------+---+ + | lidocaine [...] +---------+---+---+ +---+---+ | | | +---+---+ + +---------+ + +---+ + | sodium chloride 0.9 % (NS) IV | New Bag | 11/07/19 | 1,000 mL | | Surgical | | infusion INTRAPROCEDURE | | 19 10:35 | | | Site | | CONTINUOUS PRN, Starting Wed | | AM PDT | | | | | 11/06/18 at 1035, Until Wed | | | | | | | 11/06/18 at 1035 | | | | | | + +---------+ + +---+ + +---+---+ | | | +---+---+ + +-------+ +--------+---+---+ | tamsulosin (FLOMAX) capsule 0.4 | Given | 11/10/19 | 0.4 mg | | | | mg 0.4 mg, oral, DAILY, First | | 19 9:08 | | | | | dose on 11/06/18 at 1330, | | AM PDT | [...]
--- OUTSIDE RECORDS SUMMARY | ~2019-02-03 | XMS | Encounter Summary ---
Demographics + + + | Address | [address] | | | [place] [address] | + + + | Home Phone | | + + + | Preferred Language | Unknown | + + + | Marital Status | | + + + | Yazidi Affiliation | 1041 | + + + [...] [place] | HARRIET | [address] | | | | | [address] | | | | | [address] | | + + + + + Care Team Providers + +------+ + | Care Dental Technician Apprentice Name | Role | Phone | + +------+ + PCP | Unavailable | + +------+ + Encounter Details +--------+ + + + + | Date | Type | Department | Care Team | Description | +--------+ + + + + | 02/27/ | Hospital | [facility] | Roxanne Patino, | | | 2006 | Encounter | MED CTR XRAY [address] | MD [address] [place] | | | | | [place] | [place], | | | | | [place] [address] | [place] [address] | | | | | [phone] | [phone] | | | | | | | [...] 2019 | Visit | | [address] [facility] | | | | | | [address] [place] | | | | | | [address] | | | | | | | | +--------+---------+ + + + documented as of this encounter Visit Diagnoses Not on filedocumented in this encounter"
--- OUTSIDE RECORDS SUMMARY | ~2019-02-03 | XMS | Encounter Summary ---
Demographics + + + | Address | [address] | | | [place] [address] | + + + | Home Phone [...] + + | Author | [facility] | | | and [place] | + + + | Organization | [facility] | | | and [...] [place] | | | | | [address] | | + + + + + Care Team Providers + +------+ + | Care Assistant Professor Of German Name | Role | Phone | + [...] + + | 09/21/ | Telephone | [facility] | Reji Mederos | Other (lab orders) | | 2017 | | PHYSIATRY [address] | [address], [address] | | | | | [place], | [place] | | | | | [place] [address] | [address] | | | | | [phone] | | | +--------+ + + + [...] 2020 | Visit | | [address] [facility] | | | | | | [address] [place] | | | | | | [address] | | | | | | | | +--------+---------+ + + + documented as of this encounter Visit Diagnoses Not on filedocumented in this encounter
--- OUTSIDE RECORDS SUMMARY | ~2019-02-03 | XMS | Encounter Summary ---
Demographics + + + | Address | [address] | | | [place] [address] | + + + | Home Phone | | + + + | Preferred Language | Unknown | + + + | Marital Status | | + + + | Moravian Affiliation | 1041 | + + + | Race | Unknown | + + + | Ethnic Group | Unknown | + + + Author + + + | Author | [facility] | | | and [place] | + + + | Organization | [facility] | | [...] [place] | | | | | [address] | | + + + + + Care Team Providers + +------+ + | Care Dryer Operator Name | Role | Phone | + +------+ + | Bartolome Frederick DO | PCP | | + +------+ + Encounter Details +--------+ + + + + | Date | Type | Department | Care Team | Description | +--------+ + + + + | 03/07/ | Orders Only | [facility] | SergAly espino, | | | 2018 | | NEPRHOLOGY S[place] | MUSEUM EXHIBIT DESIGNER [address] | | | | | [address] | [place] | | | | | [address] [place], [place] | [place] | | | | | [address] | [address] | | | | | [phone] | [phone] | | | | | | | [...] 2020 | Visit | | [address] [facility] | | | | | | [address] [place] | | | | | | [address] | | | | | | | [...] | | | LAB | | | [place] | | | | | + + [...]
--- OUTSIDE RECORDS SUMMARY | ~2019-02-03 | XMS | Encounter Summary ---
Demographics + + + | Address | [address] | | | [place] [address] | + + + | Home Phone | | + + + | Preferred Language | Unknown | + + + | Marital Status | | + + + | Adventism Affiliation | 1041 | + + + | Race | Unknown | + + + | Ethnic Group | Unknown | + + + Author + + + | Author | [facility] | | | and [place] | + + + | Organization | [facility] | | [...] [place] | | | | | [address] | | + + + + + Care Team Providers + +------+ + | Care Mold Finisher Name | Role | Phone | + +------+ + | Bartolome Frederick DO | PCP | | + +------+ + Reason for Visit + + + | Reason | Comments | + + + | Referral | | + + + Encounter Details +--------+ + + + + | Date | Type | Department | Care Team | Description | +--------+ + + + + | 08/05/ | Telephone | [facility] | Bartolome Frederick | Referral | | 2018 | | [facility] | E, DO [address] | | | | | MEDICAL CLIN[facility] [address] | [place], [place] | | | | | [address] [place], | [address] | | | | | [place] [address] | [phone] | | | | | [phone] | | | +--------+ + + + [...] | Shots of liquor 0-1 | | [place]) | | | Standard drinks or | [...] 2020 | Visit | | [address] [facility] | | | | | | [address] [place] | | | | | | [address] | | | | | | | | +--------+---------+ + + + documented as of this encounter Visit Diagnoses Not on filedocumented in this encounter"
--- OUTSIDE RECORDS SUMMARY | ~2019-02-03 | XMS | Encounter Summary ---
Demographics + + + | Address | [address] | | | [place] [address] | + + + | Home Phone | | + + + | Preferred Language | Unknown | + + + | Marital Status | | + + + | Quaker Affiliation | CAT | + + + [...] Team Providers + +------+ + | Care Associate Merchandise Planner Name | Role | Phone | + [...] [address] | | | | | | [place] [address] | | | | | | [phone] | | | | | | | [...] | Transcriptions | + + | Interface, Mowing Machine Operator In - 08/29/2005 3:09 AM PDT | | [place] [address] | | [place], [place] [address] | | [facility] RECORDMed Rec No.: | | [id number] Date: [...] | referred to Dr. Colvin and to [facility]. 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 | | Sutures of 2-0Ethibond [place] sutures were placed around the annulus; the valve was | | sizedto [address] Donald valve was opened per twitchell operator's instructions,rinsed in | | antibiotic solution and inserted into the annulus with thevertical sutures, as | | previously described. Excellent excursion of thevalve was noted with both leaflets | | moving easily and anterior and posteriorazimuth of the valve. It is also noted that the | | papillary muscles werere-suspended to the annulus using 4-0 Jesup-Gianfranco.A 10-mm Cortes was | | placed between [...] Daly M.D.DANISH:X44D: 07/08/2002T: 07/09/2002C: 07/24/2002 | | [id number]:Eric Golden Aminata ColvniRESEARCH BELTON H[facility] 3153Brukate Kulkarni M.D./[facility] SPRINGFIELDIvan 62PHILLIP | | Yodit CAMEJO423 [facility] STATES THAT[place] [address]RNEFKVal JOHNSON M.D.[facility] | | [facility] HOSPITALCHAPIN M.D.[address] [facility], [place]OZZIEBari [place] [address]BXVGAR | | Yodit HANEY | |case with [...] also resected. Sutures of 2-0 | |Ethibond [place] sutures were placed around the annulus; the valve was sized | |to [address] Donald valve was opened per twitchell operator's instructions, | |rinsed in antibiotic solution and inserted into the annulus with the | |vertical sutures, as previously described. Excellent excursion of the | |valve was noted with both leaflets moving easily and anterior and posterior | |azimuth of the valve. It is also noted that the papillary muscles were | |re-suspended to the annulus using 4-0 Jesup-Gianfranco. | | | |A 10-mm Cortes was [...] | | | | | |C: 07/24/2002 [facility] | |[id number] | | | |cc: | | | | | | | |H. [place] Colvin M.D | |[facility] | | [address] | | | | | |Galo Kulkarni M.D./[facility] | |[facility] | | | | | |ANTOINETTE CAMEJO M.D. | |[address] [facility] STATES THAT. | |[place] [address] | | | | | | | |PATY JOHNSON M.D. | |[facility] | |[place], [place] | | | | | | | | | | | | | | | |ELBERT HERMOSILLO M.D. | |[address] | |[place] [address] | | | | | | | |SERVANDO HANEY M.D. | + + documented in this encounter Visit Diagnoses Not on filedocumented in this encounter"
--- OUTSIDE RECORDS SUMMARY | ~2019-02-03 | XMS | Encounter Summary ---
Demographics + + + | Address | [address] | | | [place] [address] | + + + | Home Phone [...] | [address] | | | | | [facility] | | | | | [address] | | + + + + + Care Team Providers + +------+ + | Care Computer Animator Name | Role | Phone | + +------+ + PCP | Unavailable | + +------+ + Encounter Details +--------+ + + + + | Date | Type | Department | Care Team | Description | +--------+ + + + + | 03/29/ | Hospital | [facility] | | | | 2011 | Encounter | MED CTR XRAY [address] | | | | | | [place] [address] | | | | | | [place] [address] | | | | | | [phone] | | | +--------+ + + + [...] 2020 | Visit | | [address] [facility] | | | | | | [address] [place] | | | | | | [address] | | | | | | | | +--------+---------+ + + + documented as of this encounter Procedures + +--------+ + + + | Procedure Name | Priori | Date/Time | Associated Diagnosis | Comments | | | ty | | | | + +--------+ + + + | VAS CAROTID DUPLEX | | 03/29/2011 | | Results for this | | BILATERAL | | 1:16 PM | | procedure are in the | | | | PST | | results section. | + +--------+ + + + documented in this encounter Results VAS Carotid Duplex Bilateral (03/29/2011 1:16 PM PST) + + | Specimen | + + | | + + + + + | Narrative | Performed At | + + + | [facility] | [facility] | | [address] [facility] | [facility] | | | DIAG IMG | | CAROTID DUPLEX ULTRASOUND [facility] | | | [facility] IMAGING #: | | | MOBILE THERAPIST: KEVYN REASON FOR EXAM: TRANSIENT VISION LOSS | | | | | | RIGHT Peak Systolic End Diastolic Ratio Distal PSV | | | Velocity Velocity CCA | | | .84 m/s .22 m/s BULB | | | .78 m/s .23 m/s <1 ECA | | | 1.26 m/s .23 m/s 1.5 ICA | | | .96 m/s .41 m/s 1.1 | | | LEFT Peak Systolic End Diastolic Ratio Distal | | | PSV Velocity Velocity CCA | | | 1.19 m/s .26 m/s BULB | | | .66 m/s .19 m/s <1 ECA | | | .97 m/s .18 m/s <1 ICA | | | 1.03 m/s .36 m/s <1 | | | | | | | | | | | | BILATERAL CAROTID DUPLEX ULTRASOUND, 03/29/2011 CLINICAL HISTORY: | | | TRANSIENT VISUAL LOSS. FINDINGS: There is minimal intimal | | | thickening in the right carotid bulb. There is no significant | | | luminal narrowing or flow acceleration. The waveform is normal. | | | The left carotid demonstrates a similar appearance with intimal | | | thickening and no significant raised plaque, and no significant | | | stenosis or flow acceleration. Vertebrals demonstrate antegrade | | | flow. IMPRESSION: 1. BILATERAL MINIMAL CAROTID DISEASE (0-20% | | | STENOSIS). Dictated Date/Time: 03/29/2011 15:01 Transcribed | | | Date/Time: 03/29/2011 15:04 Special Warfare Combatant Crewman: | | | <Electronically Signed by Luis Enrique Platt MD> 03/29/11 2149 | | + + + + + | Procedure Note | + + | Tino, Rad Conversion - 04/10/2013 11:50 AM [facility] | | Diagnostic Imaging Department | | [address] , [place] | | | | | | | | | | CAROTID DUPLEX ULTRASOUND | | [facility] | | | | IMAGING #: MOBILE THERAPIST: KEVYN | | REASON FOR EXAM: TRANSIENT VISION LOSS | | | | RIGHT Peak Systolic End Diastolic Ratio Distal PSV | | Velocity Velocity | | | | CCA .84 m/s .22 m/s | | BULB .78 m/s .23 m/s <1 | | ECA 1.26 m/s .23 m/s 1.5 | | ICA .96 m/s .41 m/s 1.1 | | | | | | | | LEFT Peak Systolic End Diastolic Ratio Distal PSV | | Velocity Velocity | | | | CCA 1.19 m/s .26 m/s | | BULB .66 m/s .19 m/s <1 | | ECA .97 m/s .18 m/s <1 | | ICA 1.03 m/s .36 m/s <1 | | | | | | | | | | BILATERAL CAROTID DUPLEX ULTRASOUND, 03/29/2011 | | | | CLINICAL HISTORY: TRANSIENT VISUAL LOSS. | | | | FINDINGS: There is minimal intimal thickening in the right carotid bulb. | | There is no significant luminal narrowing or flow acceleration. The waveform | | is normal. The left carotid demonstrates a similar appearance with intimal | | thickening and no significant raised plaque, and no significant stenosis or | | flow acceleration. Vertebrals demonstrate antegrade flow. | | | | IMPRESSION: | | 1. BILATERAL MINIMAL CAROTID DISEASE (0-20% STENOSIS). | | | | Dictated Date/Time: 03/29/2011 15:01 | | Transcribed Date/Time: 03/29/2011 15:04 | | Special Warfare Combatant Crewman: | | <Electronically Signed by Luis Enrique Platt MD> 03/29/11 2149 | + + + +---------+ + + | Performing | Address | City/State/Zipcode | Phone Number | | Organization | | | | + +---------+ + + | [place] | | | | | [place] | | | | + +---------+ + + documented in this encounter Visit Diagnoses Not on filedocumented in this encounter"
--- OUTSIDE RECORDS SUMMARY | ~2019-02-03 | XMS | Encounter Summary ---
Demographics + + + | Address | [address] | | | [place] [address] | + + + | Home Phone | | + + + | Preferred Language | Unknown | + + + | Marital Status | | + + + | Faith Affiliation | 1041 | + + + | Race | Unknown | + + + | Ethnic Group | Unknown | + + + Author + + + | Author | [facility] | | | and [place] | + + + | Organization | [facility] | | [...] [place] | | | | | [address] | | + + + + + Care Team Providers + +------+ + | Care Sausage Cutter Name | Role | Phone | + +------+ + | aBrtolome Frederick DO | PCP | | + +------+ + Reason for Visit +--------+ + | Reason | Comments | +--------+ + | Other | gastrointestinal hemorrhage | +--------+ + Evaluate & Treat (Routine) +--------+--------+ + + + + | Status | Reason | Specialty | Diagnoses / | Referred By | Referred To | | | | | Procedures | Contact | Contact | +--------+--------+ + + + + | Closed | | Gastroenterol | Diagnoses | Otoniel, | Anais, | | | | lester | | Bartolome Dawn, | Josiah Dawn MD | | | | | Gastrointest | DO [address] | [address], | | | | | inal | [address] [place] | [address] | | | | | hemorrhage, | [place], [place] | [place], | | | | | unspecified | [address] | [place] [address] | | | | | Procedures | Phone: | Phone: | | | | | OFFICE | [phone] | [phone] | | | | | VISIT | Fax: | Fax: | | | | | | [phone] | [phone] | +--------+--------+ + + + + Encounter Details +--------+---------+ + + + | Date | Type | Department | Care Team | Description | +--------+---------+ + + + | 01/08/ | Office | [facility] | Carlos Calles MD | Gastrointestinal | | 2018 | Visit | GASTROENTEROLOGY | [address] | hemorrhage, | | | | [address] [facility] | [place], [place] | unspecified | | | | [address] [place], [place] | [address] | gastrointestinal | | | | [address] | [phone] | hemorrhage type | | | | [phone] | | (Primary Dx); | | | | | | Anemia, unspecified | | | | | | type | +--------+---------+ + + + Social History [...] + + + | Blood Pressure | 122/68 | 01/08/2018 2:15 PM | | | | | PST | | + + + + + | Pulse | 67 | 01/08/2018 2:15 PM | | | | | PST | | + + + + + | Temperature | 36.7 C (98 F) | 01/08/2018 2:15 PM | | | | | PST | | + + + + + | Respiratory Rate | 14 | 01/08/2018 2:15 PM | | | | | PST | | + + + + + | Oxygen Saturation | 98% | 01/08/2018 2:15 PM | | | | | PST | | + + + + + | Inhaled Oxygen | - | - | | | Concentration | | | | + + + + + | Weight | 96.6 kg (212 lb 15.4 | 01/08/2018 2:15 PM | | | | oz) | PST | | + + + + + | Height | 177.8 cm (5' 10") | 01/08/2018 2:15 PM | | | | | PST | | + + + + + | Body Mass Index | 30.56 | 01/08/2018 2:15 PM | | | | | PST | | + + + + + documented in this encounter Plan of Treatment +--------+---------+ + + + | Date | Type | Specialty | Care Team | Description | +--------+---------+ + + + | 02/19/ | Office | Nephrology | Ismael Young MD | | | 2020 | Visit | | [address] [facility] | | | | | | [address] [place] | | | | | | [address] | | | | | | | | +--------+---------+ + + + documented as of this encounter Visit Diagnoses + + | Diagnosis | + + | Gastrointestinal hemorrhage, unspecified gastrointestinal hemorrhage type - Primary | + + | Anemia, unspecified type | + + documented in this encounter
--- OUTSIDE RECORDS SUMMARY | ~2019-02-03 | XMS | Encounter Summary ---
Demographics + + + | Address | [address] | | | [place] [address] | + + + | Home Phone [...] | [address] | | | | | [place] | | | | | [address] | | + + + + + Care Team Providers + +------+ + | Care Laborer [place] Name | Role | Phone | + +------+ + | Khai Ackerman DO | MARIAH | Unavailable | + +------+ + Encounter Details +--------+ + + + + | Date | Type | Department | Care Team | Description | +--------+ + + + + | 05/29/ | Abstract | [facility] [place] | Roxanne Patino, | | | 2012 | | CARDIOLOGY [address] | MD [address] [place] | | | | | [place], | [place], | | | | | [place] [address] | [place] [address] | | | | | [phone] | [phone] | | | | | | | [...] 2019 | Visit | | [address] [facility] | | | | | | [address] [place], [place] | | | | | | [address] | | | | | | | | +--------+---------+ + + + documented as of this encounter Procedures + +--------+ + + + | Procedure Name | Priori | Date/Time | Associated Diagnosis | Comments | | | ty | | | | + +--------+ + + + | LIPID PANEL | Routin | 07/03/2012 | | Results for this | | | e | | | procedure are in the | | | | | | results section. | + +--------+ + + + | COMPREHENSIVE | Routin | 07/03/2012 | | Results for this | | METABOLIC PANEL | e | | | procedure are in the | | | | | | results section. | + +--------+ + + + documented in this encounter Results Comprehensive Metabolic Panel (07/03/2012) + +-------+ + + + | Component | Value | Ref Range | Performed | Pathologist | | | | | At | Signature | + +-------+ + + + | Na | 138 | mmol/L | [facility] | | | | | | [facility] | | | | | | [facility] | | | | | [facility] - | | | | | | LAB[facility]ORY | | + +-------+ + + + | K | 3.5 | mmol/L | [facility] | | | | | | [facility] | | | | | | [facility] | | | | | | [facility] - | | | | | | LAB[facility]ATORY | | + +-------+ + + + | Chloride | 104 | | [facility] | | | | | | [facility] | | | | | | [facility] | | | | | | [facility] - | | | | | | LABORATORY | | + +-------+ + + + | CO2 | 28 | mmol/L | [facility] | | | | | | [facility] | | | | | | [facility] | | | | | | [facility] - | | | | | | LABORATORY | | + +-------+ + + + | Anion Gap | 10 | mmol/L | [facility] | | | | | | [facility] | | | | | | [facility] | | | | | | [facility] - | | | | | | LAB[facility]ATORY | | + +-------+ + + + | Glucose | 101 | mg/dL | [facility] | | | | | | [facility] | | | | | | [facility] | | | | | | [facility] - | | | | | | LABORATORY | | + +-------+ + + + | Urine | 16 | | [facility] | | | Volume | | | [facility] | | | | | | [facility] | | | | | | [facility] - | | | | | | LAB[facility]ATORY | | + +-------+ + + + | Creatine, | 0.89 | | [facility] | | | Serum | | | [facility] | | | | | | MED[facility] | | | | | | C[facility] - | | | | | | LABORATORY | | + +-------+ + + + | GFR | 60 | | [facility] | | | ESTIMATE | | | [facility] | | | (REF) | | | MEDICAL | | | | | | CENTER - | | | | | | LABORATORY | | + +-------+ + + + | Bun/Creatin | 18.0 | | [facility] | | | ine | | | [facility] | | | | | | [facility] | | | | | | [facility] - | | | | | | LABORATORY | | + +-------+ + + + | Calcium | 8.9 | mg/dL | [facility] | | | | | | [facility] | | | | | | [facility] | | | | | | [facility] - | | | | | | LABORATORY | | + +-------+ + + + | AST | 17 | U/L | [facility] | | | | | | [facility] | | | | | | [facility] | | | | | | [facility] - | | | | | | LABORATORY | | + +-------+ + + + | ALT | 18 | U/L | [facility] | | | | | | [facility] | | | | | | [facility] | | | | | | [facility] - | | | | | | LABORATORY | | + +-------+ + + + | Alkaline | 90 | 35 - 115 U/L | [facility] | | | Phosphatase | | | [facility] | | | | | | [facility] | | | | | | [facility] - | | | | | | LABORATORY | | + +-------+ + + + | Bilirubin | 0.4 | 0.1 - 1.5 mg/dL | [facility] | | | Total | | | [facility] | | | | | | MED[facility] | | | | | | [facility] - | | | | | | LABORATORY | | + +-------+ + + + | Total | 6.4 | 6.1 - 8.4 g/dL | [facility] | | | Protein | | | [facility] | | | | | | MEDICAL | | | | | | [facility] - | | | | | | LABORATORY | | + +-------+ + + + | Albumin | 4.3 | 3.3 - 4.8 g/dL | [facility] | | | | | | [facility] | | | | | | [facility] | | | | | | [facility] - | | | | | | LABORATORY | | + +-------+ + + + | Globulin | 2.1 | | [facility] | | | | | | [facility] | | | | | | [facility] | | | | | | [facility] - | | | | | | LABORATORY | | + +-------+ + + + | Albumin/Mandy | 2.0 | | [facility] | | | bulin Ratio | | | [facility] | | | | | | [facility] | | | | | | [facility] - | | | | | | LABORATORY | | + +-------+ + + + + + | Specimen | + + | Blood specimen | | (specimen) | + + + + + + + | Performing | Address | City/State/Zipcode | Phone Number | | Organization | | | | + + + + + | [facility] | [address] | [place] | | | [facility] | | [address] | | | - LABORATORY | | | | + + + + + Lipid Panel (07/03/2012) + +-------+ + + + | Component | Value | Ref Range | Performed | Pathologist | | | | | At | Signature | + +-------+ + + + | Cholesterol | 186 | | | | | , Total | | | | | + +-------+ + + + | Triglycerid | 102 | mg/dL | | | | es | | | | | + +-------+ + + + | HDL | 37.1 | mg/dl | | | + +-------+ + + + | LDL, | 129 | 130 mg/dL | | | | Calculated | | | | | + +-------+ + + + | VLDL | 20 | | | | | Cholesterol | | | | | | [place] | | | | | + +-------+ + + + | Chol/HDL | 5.0 | | | | | Ratio | | | | | + +-------+ + + + | Non HDL | 149 | | | | | Chol. | | | | | | (LDL+VLDL) | | | | | + +-------+ + + + + + | Specimen | + + | Blood specimen | | (specimen) | + + documented in this encounter Visit Diagnoses Not on filedocumented in this encounter"
--- OUTSIDE RECORDS SUMMARY | ~2019-02-03 | XMS | Encounter Summary ---
Demographics + + + | Address | [address] | | | [place] [address] | + + + | Home Phone [...] [place] | | | | | [address] | | + + + + + Care Team Providers + +------+ + | Care Financial Writer Name | Role | Phone | + +------+ + | Juliana Roberts NP | PCP | | + +------+ + Reason for Visit + + + | Reason | Comments | + + + | Wound Re-evaluation | left chest area | + + + Encounter Details +--------+ + + + + | Date | Type | Department | Care Team | Description | +--------+ + + + + | 07/20/ | Emergency | [facility] | Dileep Miner, | Posttraumatic | | 2014 | | [facility] | MD [address] | hematoma of left | | | | CENTER [address] | [facility] [place] | breast, initial | | | | [place], [place] | [place] [address] | encounter (Primary | | | | [address] | [phone] | Dx); | | | | [phone] | | Warfarin-induced | | | | | | coagulopathy (HCC); | | | | | | Acute nonintractable | | | | | | headache, | | | | | | unspecified headache | | | | | | type; Facial | | | | | | hematoma, initial | | | | | | encounter | +--------+ + + + + Social [...] + + + | Blood Pressure | 139/65 | 07/20/2014 5:00 PM | | | | | PDT | | + + + + + | Pulse | 92 | 07/20/2014 5:00 PM | | | | | PDT | | + + + + + | Temperature | 37.2 C (99 F) | 07/20/2014 1:36 PM | | | | | PDT | | + + + + + | Respiratory Rate | 22 | 07/20/2014 1:36 PM | | | | | PDT | | + + + + + | Oxygen Saturation | 94% | 07/20/2014 5:00 PM | | | | | PDT | | + + + + + | Inhaled Oxygen | - | - | | | Concentration | | | | + + + + + | Weight | 83.9 kg (185 lb) | 07/20/2014 1:36 PM | | | | | PDT | | + + + + + | Height | 180.3 cm (5' 11") | 07/20/2014 1:36 PM | | | | | PDT | | + + + + + | Body Mass Index | 25.8 | 07/20/2014 1:36 PM | | | | | PDT | | + + + + + documented in this encounter Discharge Instructions Instructions Dileep Miner MD - 07/20/2014Compression dressing on your chest Ice packs and compression over the right maxillary area [facility] Do not take Coumadin until told by you primary care doctor to restart it You've wounds will be rechecked in 2 days by your primary care doctor Return to the ER immediately if he developed worsening headache, increased swelling, or oth er concerns. Your blood is very thin, be especially cautious to avoid any injuries. AttachmentsThe following attachments cannot be sent through Care Everywhere.HEMATOMA (ENGLI SH)WARFARIN SODIUM ORAL TABLET ([place])documented in this encounter Medications at Time of Discharge + + + +---------+ + + | Medication | Sig | Dispensed | Refills | Start | End Date | | | | | | Date | | + + + +---------+ + + | aspirin 81 mg EC | Take 81 mg by mouth | | 0 | 05/15/19 | | | tablet | Daily. | | | 12 | 8 | + + + +---------+ + + | atorvaSTATin | Take 20 mg by mouth | | 0 | | | | (LIPITOR) 20 mg | nightly. | | | | 8 | | tablet | | | | | | + + + +---------+ + + | baclofen | Two tablets by mouth | | 0 | 05/15/19 | | | (LIORESAL) 10 mg | every 8 hours as | | | 12 | 8 | | tablet | needed | | | | | + + + +---------+ + + | | One tablet by mouth | | 0 | 05/15/19 | | | butalbital-acetamino | every 8 hours as | | | 12 | 8 | | phen-caffeine (ESGIC | needed | | | | | | PLUS) per tablet | | | | | | + + + +---------+ + + | lisinopril | Take 5 mg by mouth | | 0 | | | | (PRINIVIL, ZESTRIL) | Daily. | | | | 8 | | 5 mg tablet | | | | | | + + + +---------+ + + | | Take 1-2 tablets by | 20 | 0 | 07/21/19 | | | oxyCODONE-acetaminop | mouth every 6 hours | tablet | | 15 | 8 | | hen (PERCOCET) 5-325 | as needed for Pain. | | | | | | mg per tablet | | | | | | + + + +---------+ + + | rOPINIRole | Take 4 mg by mouth | | 0 | 05/15/19 | | | (REQUIP) 4 mg tablet | nightly. | | | 12 | 8 | + + + +---------+ + + | simvastatin | Take 40 mg by mouth | | 0 | | | | (ZOCOR) 40 mg tablet | nightly. | | | | 8 | + + + +---------+ + + | tamsulosin | Take 0.4 mg by mouth | | 0 | | | | (FLOMAX) 0.4 mg CAPS | daily (after | | | | 8 | | | breakfast). | | | | | + + + +---------+ + + | temazepam | Take 30 mg by mouth | | 0 | 05/15/19 | | | (RESTORIL) 30 MG | nightly as needed. | | | 12 | 8 | | capsule | | | | | | + + + +---------+ + + | | Take 37.5-25 mg by | | 0 | 05/15/19 | | | triamterene-hydrochl | mouth. Takes this | | | 12 | 8 | | orothiazide | medication Sunday, | | | | | | (MAXZIDE-25) 37.5-25 | , Sunday | | | | | | mg per tablet | | | | | | + + + +---------+ + + | verapamil | Take 240 mg by mouth | | 0 | 05/15/19 | | | (VERELAN) 240 mg SR | nightly. | | | 12 | 8 | | capsule | | | | | | + + + +---------+ + + | warfarin | Currently on hold as | | 0 | 05/15/19 | | | (COUMADIN) 1 mg | his dose is | | | 12 | 8 | | tablet | currently only 5 mg | | | | | | | daily, patient has 5 | | | | | | | mg tablets. | | | | | + + + +---------+ + + | warfarin | Take 5 mg by mouth | | 0 | 05/15/19 | | | (COUMADIN) 5 mg | Daily. | | | 12 | 8 | | tablet | | | | | | + + + +---------+ + + documented as of this encounter Plan of Treatment +--------+---------+ + + + | Date | Type | Specialty | Care Team | Description | +--------+---------+ + + + | 02/19/ | Office | Nephrology | Ismael Young MD | | | 2020 | Visit | | [address] [facility] | | | | | | [address] [place] | | | | | | [address] | | | | | | | | +--------+---------+ + + + documented as of this encounter Procedures + +--------+ + + + | Procedure Name | Priori | Date/Time | Associated Diagnosis | Comments | | | ty | | | | + +--------+ + + + | CT HEAD WO CONTRAST | STAT | 07/20/2014 | | Results for this | | | | 3:06 PM | | procedure are in the | | | | PDT | | results section. | + +--------+ + + + | PROTIME INR | STAT | 07/20/2014 | | Results for this | | | | 2:47 PM | | procedure are in the | | | | PDT | | results section. | + +--------+ + + + | CBC WITH | STAT | 07/20/2014 | | Results for this | | DIFFERENTIAL | | 2:47 PM | | procedure are in the | | | | PDT | | results section. | + +--------+ + + + | BASIC METABOLIC | STAT | 07/20/2014 | | Results for this | | PANEL | | 2:47 PM | | procedure are in the | | | | PDT | | results section. | + +--------+ + + + documented in this encounter Results CT Head wo Contrast (07/20/2014 3:06 PM PDT) + + | Specimen | + + | | + + + + + | Narrative | Performed At | + + + | CT HEAD WO CONTRAST 07/20/2014 3:00 PM HISTORY: Headache, | [facility] | | coagulopathy. COMPARISON: None. PROTOCOL: Axial images of the | | | head were obtained along with coronal and sagittal reformations. | | | FINDINGS: The brain parenchyma demonstrates no evidence for acute | | | infarct, mass lesion, or hemorrhage. The brainstem is unremarkable. | | | The cerebellum is normal. The ventricles, cisterns, and sulci are | | | of normal size and shape. There is mild atherosclerosis of the | | | left carotid artery. Mild global thickening is visualized of the | | | ethmoid sinuses. Paranasal sinuses are clear. Mastoid air cells are | | | normal. Calvarium, temporal bones, and skull base structures are | | | unremarkable. IMPRESSION - No acute intracranial findings. | | | This report was sent to the ER. Dictated and Signed by: Tuan | | | MD Renny Electronically signed: 07/20/2014 3:16 PM | | + + + + + | Procedure Note | + + | Tino, Rad Results In - 07/20/2014 3:[address] HEAD WO CONTRAST 07/20/2014 3:00 PM | | | | HISTORY: Headache, coagulopathy. | | | | COMPARISON: None. | | | | PROTOCOL: Axial images of the head were obtained along with coronal and sagittal | | reformations. | | | | FINDINGS: | | The brain parenchyma demonstrates no evidence for acute infarct, mass lesion, or | | hemorrhage. The brainstem is unremarkable. The cerebellum is normal. | | | | The ventricles, cisterns, and sulci are of normal size and shape. | | | | There is mild atherosclerosis of the left carotid artery. | | | | Mild global thickening is visualized of the ethmoid sinuses. Paranasal sinuses | | are clear. Mastoid air cells are normal. | | | | Calvarium, temporal bones, and skull base structures are unremarkable. | | | | IMPRESSION - | | No acute intracranial findings. | | | | This report was sent to the ER. | | | | Dictated and Signed by: Tuan Lawson MD | | Electronically signed: 07/20/2014 3:16 PM | + + + +---------+ + + | Performing | Address | City/State/Zipcode | Phone Number | | Organization | | | | + +---------+ + + | [facility] | | | | + +---------+ + + Protime INR (07/20/2014 2:47 PM PDT) + + + + + + | Component | Value | Ref Range | Performed | Pathologist | | | | | At | Signature | + + + + + + | Prothrombin | 76.6 (H) | 11.3 - 13.9 | [facility] | | | Time | | seconds | [facility] | | | | | | MEDICAL | | | | | | CENTER - | | | | | | LABORATORY | | + + + + + + | INR | 9.33 (HH)Comment: | 0.90 - 1.10 | [facility] | | | | Critical Result called | | [facility] | | | | to and read back by | | MEDICAL | | | | Rhianna Garland RN on | | CENTER - | | | | 07/20/2014 at 15:59 by | | LABORATORY | | | | Amina Link. Usual | | | | | | Oral Anticoagulation | | | | | | Range: 2.0 - | | | | | | 3.0High Level Oral | | | | | | Anticoagulation Range: | | | | | | 2.5 - 3.5 | | | | + + + + + + + + | Specimen | + + | Blood | + + + + + + + | Performing | Address | City/State/Zipcode | Phone Number | | Organization | | | | + + + + + | [facility] | [address] | [place] | [phone] | | [facility] | | [address] | | | - LABORATORY | | | | + + + + + Basic Metabolic Panel (07/20/2014 2:47 PM PDT) + + + + + + | Component | Value | Ref Range | Performed | Pathologist | | | | | At | Signature | + + + + + + | Na | 138 | 136 - 149 | [facility] | | | | | mmol/L | [facility] | | | | | | MEDICAL | | | | | | CENTER - | | | | | | LABORATORY | | + + + + + + | K | 3.9 | 3.5 - 5.1 | [facility] | | | | | mmol/L | [facility] | | | | | | MEDICAL | | | | | | CENTER - | | | | | | LABORATORY | | + + + + + + | Cl | 103 | 98 - 109 mmol/L | [facility] | | | | | | [facility] | | | | | | MEDICAL | | | | | | CENTER - | | | | | | LABORATORY | | + + + + + + | CO2 | 27 | 24 - 31 mmol/L | [facility] | | | | | | [facility] | | | | | | MEDICAL | | | | | | CENTER - | | | | | | LABORATORY | | + + + + + + | Anion Gap | 8 | 3 - 16 mmol/L | [facility] | | | | | | [facility] | | | | | | MEDICAL | | | | | | CENTER - | | | | | | LABORATORY | | + + + + + + | Glucose | 107 | 70 - 109 mg/dL | [facility] | | | | | | [facility] | | | | | | MEDICAL | | | | | | CENTER - | | | | | | LABORATORY | | + + + + + + | BUN | 15 | 7 - 18 mg/dL | [facility] | | | | | | [facility] | | | | | | MEDICAL | | | | | | CENTER - | | | | | | LABORATORY | | + + + + + + | Creatinine | 1.04 | 0.60 - 1.30 | [facility] | | | | | mg/dL | [facility] | | | | | | MEDICAL | | | | | | CENTER - | | | | | | LABORATORY | | + + + + + + | eGFR if not | >60Comment: GLOMERULAR | >=60 | [facility] | | | | FILTRATION | mL/min/1.73m2 | [facility] | | | STATELESS | RATE,ESTIMATED | | MEDICAL | | | | mL/min/1.16t7Agya than | | CENTER - | | | | 60 Chronic kidney | | LABORATORY | | | | disease,if found over a | | | | | | 3-month period.Less than | | | | | | 15 Kidney failureFor | | | | | | | | | | | | Americans,multiply the | | | | | | calculated GFR by 1.21. | | | | | | | | | | + + + + + + | Calcium | 8.9 | 8.3 - 10.5 | [facility] | | | | | mg/dL | [facility] | | | | | | MEDICAL | | | | | | CENTER - | | | | | | LABORATORY | | + + + + + + | BUN/Creatin | 14.4 | | [facility] | | | ine Ratio | | | [facility] | | | | | | [facility] | | | | | | CENTER - | | | | | | LABORATORY | | + + + + + + + + | Specimen | + + | Blood | + + + + + + + | Performing | Address | City/State/Zipcode | Phone Number | | Organization | | | | + + + + + | [facility] | [address] | [place] | [phone] | | [facility] | | [address] | | | - LABORATORY | | | | + + + + + CBC with Differential (07/20/2014 2:47 PM PDT) + + + + + + | Component | Value | Ref Range | Performed | Pathologist | | | | | At | Signature | + + + + + + | WBC | 12.6 (H) | 4.0 - 11.0 K/uL | [facility] | | | | | | [facility] | | | | | | MEDICAL | | | | | | CENTER - | | | | | | LABORATORY | | + + + + + + | RBC | 3.93 (L) | 4.30 - 5.70 | [facility] | | | | | M/uL | [facility] | | | | | | MEDICAL | | | | | | CENTER - | | | | | | LABORATORY | | + + + + + + | Hemoglobin | 12.1 (L) | 13.5 - 18.0 | [facility] | | | | | g/dL | [facility] | | | | | | MEDICAL | | | | | | CENTER - | | | | | | LABORATORY | | + + + + + + | Hematocrit | 36.3 (L) | 40.0 - 51.0 % | [facility] | | | | | | [facility] | | | | | | MEDICAL | | | | | | CENTER - | | | | | | LABORATORY | | + + + + + + | MCV | 92.5 | 83.0 - 101.0 fL | [facility] | | | | | | [facility] | | | | | | MEDICAL | | | | | | CENTER - | | | | | | LABORATORY | | + + + + + + | MCH | 30.8 | 28.0 - 35.0 pg | [facility] | | | | | | [facility] | | | | | | MEDICAL | | | | | | CENTER - | | | | | | LABORATORY | | + + + + + + | MCHC | 33.3 | 32.0 - 36.0 | [facility] | | | | | g/dL | [facility] | | | | | | MEDICAL | | | | | | CENTER - | | | | | | LABORATORY | | + + + + + + | RDW-CV | 13.8 | <15.0 % | [facility] | | | | | | [facility] | | | | | | MEDICAL | | | | | | CENTER - | | | | | | LABORATORY | | + + + + + + | Platelet | 235 | 140 - 440 K/uL | [facility] | | | Count | | | [facility] | | | | | | MEDICAL | | | | | | CENTER - | | | | | | LABORATORY | | + + + + + + | MPV | 8.1 | fL | [facility] | | | | | | [facility] | | | | | | MEDICAL | | | | | | CENTER - | | | | | | LABORATORY | | + + + + + + | % | 79.2 | 45.0 - 82.0 % | [facility] | | | Neutrophils | | | [facility] | | | | | | MEDICAL | | | | | | CENTER - | | | | | | LABORATORY | | + + + + + + | % | 10.4 (L) | 20.0 - 45.0 % | [facility] | | | Lymphocytes | | | [facility] | | | | | | MEDICAL | | | | | | CENTER - | | | | | | LABORATORY | | + + + + + + | % Monocytes | 6.8 | 4.0 - 12.0 % | [facility] | | | | | | [facility] | | | | | | MEDICAL | | | | | | CENTER - | | | | | | LABORATORY | | + + + + + + | % | 3.0 | 0.0 - 5.0 % | [facility] | | | Eosinophils | | | [facility] | | | | | | MEDICAL | | | | | | CENTER - | | | | | | LABORATORY | | + + + + + + | % Basophils | 0.6 | 0.0 - 1.0 % | [facility] | | | | | | [facility] | | | | | | MEDICAL | | | | | | CENTER - | | | | | | LABORATORY | | + + + + + + | Absolute | 10.00 (H) | 1.80 - 8.50 | [facility] | | | Neutrophils | | K/uL | [facility] | | | | | | MEDICAL | | | | | | CENTER - | | | | | | LABORATORY | | + + + + + + | Absolute | 1.30 | 0.60 - 3.20 | [facility] | | | Lymphocytes | | K/uL | [facility] | | | | | | MEDICAL | | | | | | CENTER - | | | | | | LABORATORY | | + + + + + + | Absolute | 0.90 | 0.00 - 1.00 | [facility] | | | Monocytes | | K/uL | [facility] | | | | | | MEDICAL | | | | | | CENTER - | | | | | | LABORATORY | | + + + + + + | Absolute | 0.40 | 0.00 - 0.40 | [facility] | | | Eosinophils | | K/uL | [facility] | | | | | | MEDICAL | | | | | | CENTER - | | | | | | LABORATORY | | + + + + + + | Absolute | 0.10 | 0.00 - 0.10 | [facility] | | | Basophils | | K/uL | [facility] | | | | | | MEDICAL | | | | | | CENTER - | | | | | | LABORATORY | | + + + + + + + + | Specimen | + + | Blood | + + + + + + + | Performing | Address | City/State/Zipcode | Phone Number | | Organization | | | | + + + + + | [facility] 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 | + + | Acute nonintractable headache, unspecified headache type | + + | Facial hematoma, initial encounter | + + documented in this encounter Administered Medications + +--------+ +--------+------+------+ | Medication Order | MAR | Action | Dose | Rate | Site | | | Action | Date | | | | + +--------+ +--------+------+------+ | fentaNYL injection 50 mcg 50 | Given | 07/21/19 | 50 mcg | | | | mcg, Intravenous, EVERY 20 | | 15 3:09 | | | | | MINUTES PRN, Pain, Starting Mon | | PM PDT | | | | | 07/20/14 at 1431, For 4 doses | | | | | | + +--------+ +--------+------+------+ +-------+ +--------+---+---+ | Given | 07/21/19 | 50 mcg | | | | | 15 2:47 | | | | | | PM PDT | | | | +-------+ +--------+---+---+ +---+---+ | | | +---+---+ + +-------+ +--------+---+---+ | HYDROmorphone (PF) (DILAUDID) 1 | Given | 07/21/19 | 0.5 mg | | | | mg/mL injection 0.5 mg 0.5 mg, | | 15 3:35 | | | | | Intravenous, EVERY 15 MIN PRN, | | PM PDT | | | | | Pain, Starting 07/20/14 at | | | | | | | 1517, For 2 doses | | | | | | + +-------+ +--------+---+---+ +---+---+ | | | +---+---+ + +-------+ +------+---+---+ | ondansetron (ZOFRAN) injection | Given | 07/21/19 | 4 mg | | | | 4 mg 4 mg, Intravenous, ONCE, | | 15 2:47 | | | | | 07/20/14 at 1500, For 1 dose | | PM PDT | | | | + +-------+ +------+---+---+ +---+---+ | | | +---+---+ + +-------+ +---------+---+---+ | oxyCODONE-acetaminophen | Given | 07/21/19 | 2 | | | | (PERCOCET) 5-325 mg per tablet 2 | | 15 5:03 | tablets | | | | tablet 2 tablet, Oral, ONCE, Mon | | PM PDT | | | | | 07/20/14 at 1730, For 1 dose | | | | | | + +-------+ +---------+---+---+ +---+---+ | | | +---+---+ + +-------+ +--------+---+---+ | phytonadione (VITAMIN K) 10 | Given | 07/21/19 | 1.3 mg | | | | mg/mL liquid 1.3 mg 1.3 mg | | 15 2:47 | | | | | (rounded from 1.25 mg), Oral, | | PM PDT | | | | | ONCE, 07/20/14 at 1500, For 1 | | | | | | | dose | | | | | | + +-------+ +--------+---+---+ +---+---+ | | | +---+---+ documented in this encounter
--- OUTSIDE RECORDS SUMMARY | ~2019-02-03 | XMS | Encounter Summary ---
Demographics + + + | Address | [address] | | | [place] [address] | + + + | Home Phone [...] [place] | | | | | [address] | | + + + + + Care Team Providers + +------+ + | Care Computer Systems Software Architect Name | Role | Phone | + [...] 06/27/ | Telephone | [facility] | Batrolome Frederick | Medication Related | | 2019 | | [facility] | E, DO [address] | (Rx for inflamation | | | | [facility] | [place], [place] | in back) | | | [address] [place], | [address] | | | | | [place] [address] | [phone] | | | | | [phone] | | | +--------+ + + + [...] | Shots of liquor 0-1 | | [place]) | | | Standard drinks or | [...] 2020 | Visit | | [address] [facility] | | | | | | [address] [place] | | | | | | [address] | | | | | | | | +--------+---------+ + + + documented as of this encounter Visit Diagnoses Not on filedocumented in this encounter"
--- OUTSIDE RECORDS SUMMARY | ~2019-02-03 | XMS | Encounter Summary ---
Demographics + + + | Address | [address] | | | [place] [address] | + + + | Home Phone | | + + + | Preferred Language | Unknown | + + + | Marital Status | | + + + | Mosque Affiliation | 1041 | + + + | Race | Unknown | + + + | Ethnic Group | Unknown | + + + Author + + + | Author | [facility] | | | and [place] | + + + | Organization | [facility] | | [...] [place] | | | | | [address] | | + + + + + Care Team Providers + +------+ + | Care Senior Stock Plan Administrator Name | Role | Phone | + +------+ + | Bartolome Frederick DO | PCP | | + +------+ + Encounter Details +--------+ + + + + | Date | Type | Department | Care Team | Description | +--------+ + + + + | 08/25/ | Orders Only | [facility] | Ismael Young MD | | | 2017 | | NEPHROLOGY [place] | [address] [place] | | | | | [address] [place] | [address] [place], [place] | | | | | [address] [place], [place] | [address] | | | | | [address] | | | | | | [phone] | | | +--------+ + + + [...] [place] | | | | | | [address] | | | | | | | | +--------+---------+ + + + documented as of this encounter Procedures + +--------+ + + + | Procedure Name | Priori | Date/Time | Associated Diagnosis | Comments | | | ty | | | | + +--------+ + + + | BASIC METABOLIC | Routin | 08/25/2016 | | Results for this | | PANEL | e | 11:24 AM | | procedure are in the | | | | PDT | | results section. | + +--------+ + + + documented in this encounter Results Basic Metabolic Panel (08/25/2016 11:24 AM PDT) + + + + + + | Component | Value | Ref Range | Performed | Pathologist | | | | | At | Signature | + + + + + + | Glucose, | 94 | 70 - 100 mg/dL | EXTERNAL | | | Fasting | | | LAB | | + + + + + + | BUN | 32 (A) | 6 - 23 mg/dL | EXTERNAL | | | | | | LAB | | + + + + + + | Creatinine | 1.58 (A) | 0.70 - 1.25 | EXTERNAL | | | | | mg/dL | LAB | | + + + + + + | BUN/Creatin | 20.3 | 6.0 - 28.6 | EXTERNAL | | | ine Ratio | | | LAB | | + + + + + + | Calcium | 9.2 | 8.4 - 10.2 | EXTERNAL | | | | | mg/dL | LAB | | + + + + + + | Na | 142 [...] + + + | Anion Gap | 15.7 | 7 - 21 mmol/L | EXTERNAL | | | | | | LAB | | + + + + + + | Estimated | 44 (A) | 60 mg/dL | EXTERNAL | [...]
--- OUTSIDE RECORDS SUMMARY | ~2019-02-03 | XMS | Encounter Summary ---
Demographics + + + | Address | [address] | | | [place] [address] | + + + | Home Phone | | + + + | Preferred Language | Unknown | + + + | Marital Status | | + + + | Islam Affiliation | 1041 | + + + [...] [place] | | | | | [address] | | + + + + + Care Team Providers + +------+ + | Care Still Operator Whiskey Name | Role | Phone | + +------+ + | Bartolome Frederick DO | PCP | | + +------+ + Reason for Visit + + + | Reason | Comments | + + + | Medication Question | | + + + Encounter Details +--------+ + + + + | Date | Type | Department | Care Team | Description | +--------+ + + + + | 11/21/ | Telephone | [facility] | Bartolome Frederick | Medication Question | | 2018 | | [facility] | E, DO [address] | | | | | [facility] [address] | [place], [place] | | | | | [address] [place], | [address] | | | | | [place] [address] | [phone] | | | | | [phone] | | | +--------+ + + + [...] 2020 | Visit | | [address] [facility] | | | | | | [address] [place] | | | | | | [address] | | | | | | | | +--------+---------+ + + + documented as of this encounter Visit Diagnoses Not on filedocumented in this encounter
--- OUTSIDE RECORDS SUMMARY | ~2019-02-03 | XMS | Encounter Summary ---
Demographics + + + | Address | [address] | | | [place] [address] | + + + | Home Phone | | + + + | Preferred Language | Unknown | + + + | Marital Status | | + + + | Buddhism Affiliation | 1041 | + + + | Race | Unknown | + + + | Ethnic Group | Unknown | + + + Author + + + | Author | [facility] | | | and [place] | + + + | Organization | [facility] | | [...] [place] | | | | | [address] | | + + + + + Care Team Providers + +------+ + | Care Skidder Lever Operator Name | Role | Phone | + +------+ + | Bartolome Frederick DO | PCP | | + +------+ + Encounter Details +--------+ + + + + | Date | Type | Department | Care Team | Description | +--------+ + + + + | 10/23/ | Orders Only | [facility] | Ismael Young MD | | | 2017 | | NEPHROLOGY [place] | [address] [place] | | | | | [address] [place] | [address] [place], [place] | | | | | [address] [place], [place] | [address] | | | | | [address] | | | | | | [phone] | | | +--------+ + + + [...] 2020 | Visit | | [address] [facility] | | | | | | [address] [place] | | | | | | [address] | | | | | | | | +--------+---------+ + + + documented as of this encounter Procedures + +--------+ + + + | Procedure Name | Priori | Date/Time | Associated Diagnosis | Comments | | | ty | | | | + +--------+ + + + | EXTERNAL LAB: CBC | Routin | 10/23/2016 | | Results for this | | | e | 8:58 AM | | procedure are in the | | | | PDT | | results section. | + +--------+ + + + | URINALYSIS WITH | Routin | 10/23/2016 | | Results for this | | MICROSCOPIC IF | e | 8:58 AM | | procedure are in the | | INDICATED | | PDT | | results section. | + +--------+ + + + | PROTEIN/CREATININE | Routin | 10/23/2016 | | Results for this | | RATIO, URINE | e | 8:58 AM | | procedure are in the | | | | PDT | | results section. | + +--------+ + + + | MAGNESIUM | Routin | 10/23/2016 | | Results for this | | | e | 8:58 AM | | procedure are in the | | | | PDT | | results section. | + +--------+ + + + | RENAL FUNCTION PANEL | Routin | 10/23/2016 | | Results for this | | | e | 8:58 AM | | procedure are in the | | | | PDT | | results section. | + +--------+ + + + documented in this encounter Results Protein/Creatinine Ratio, Urine (10/23/2016 8:58 AM PDT) + + + + + + | Component | Value | Ref Range | Performed | Pathologist | | | | | At | Signature | + + + + + + | Protein/Cre | 317.6 (A) | 0 - 150 | EXTERNAL [...] + + Urinalysis with Microscopic if Indicated (10/23/2016 8:58 AM PDT) + + + [...] + + + | Spec Grav, | 1.019 | 1.005 - 1.030 | EXTERNAL | [...] + + + + | Total | 75 | | EXTERNAL | | | Protein [...] + +---------+ + + External Lab: CBC (10/23/2016 8:58 AM PDT) + + + + + + | Component | Value | Ref Range | Performed | Pathologist | | | | | At | Signature | + + + + + + | WBC | 11.4 (A) | 4.5 - 11.0 10 | EXTERNAL | | | | | | LAB | | + + + + + + | RED CELL | 4.13 (A) | 4.3 - 5.7 10 | EXTERNAL | | | COUNT | | | LAB | | + + + + + + | Hgb | 12.7 (A) | 13.5 - 18.0 | EXTERNAL | | | | | g/dL | LAB | | + + + + + + | Hematocrit, | 37.5 (A) | 41 - 50 % | EXTERNAL | | | POC | | | LAB | | + + + + + + | MCV | 90.7 | 81 - 99 fL | EXTERNAL [...] + + + + | Platelet | 216 | 140 - 440 K/ L | EXTERNAL | | | Count | | | LAB | | | Plasma | | | | | + + + + + + | RDW-CV | 14.7 | 10.5 - 15.0 % | EXTERNAL [...] | | + +---------+ + + Magnesium (10/23/2016 8:58 AM PDT) + +-------+ + + + [...] + +---------+ + + Renal Function Panel (10/23/2016 8:58 AM PDT) + + + + + + | Component | Value | Ref Range | Performed | Pathologist | | | | | At | Signature | + + + + + + | Glucose, | 102 (A) | 70 - 100 mg/dL | EXTERNAL | | | Fasting | | | LAB | | + + + + + + | BUN | 46 (A) | 6 - 23 mg/dL | EXTERNAL | | | | | | LAB | | + + + + + + | Creatinine | 1.47 (A) | 0.70 - 1.25 | EXTERNAL [...] + + + | Anion Gap | 13.7 | 7 - 21 mmol/L | EXTERNAL | | | | | | LAB | | + + + + + + | eGFR if not | | | EXTERNAL | | | | | | LAB | | | NAMIBIAN | | | | | + + + + + + | Phosphorus, | 3.3 | 2.5 - 5.0 | EXTERNAL | | | Inorganic | | | LAB | | + + + + + + | BUN/Creatin | 31.3 (A) | 6.0 - 28.6 | EXTERNAL | | | ine Ratio | | | LAB | | + + + + + + | Calcium | 9.3 | 8.4 - 10.2 | EXTERNAL | | | | | mg/dL | LAB | | + + + + + + | Estimated | 48 | mg/dL | EXTERNAL | | | [...]
--- OUTSIDE RECORDS SUMMARY | ~2019-02-03 | XMS | Encounter Summary ---
Demographics + + + | Address | [address] | | | [place] [address] | + + + | Home Phone | | + + + | Preferred Language | Unknown | + + + | Marital Status | | + + + | Congregation Affiliation | 1041 | + + + [...] [address] | | | | | [place] | | | | | [address] | | + + + + + Care Team Providers + +------+ + | Care Extractor Puller Name | Role | Phone | + +------+ + PCP | Unavailable | + +------+ + Encounter Details +--------+ + + + + | Date | Type | Department | Care Team | Description | +--------+ + + + + | 06/16/ | Hospital | [facility] | | | | 2002 | Encounter | MED CTR XRAY [address] | | | | | | [place] [address] | | | | | | [place] [address] | | | | | | [phone] | | | +--------+ + + + [...] 2020 | Visit | | [address] [facility] [place] | | | | | | [address] [place] | | | | | | [address] | | | | | | | | +--------+---------+ + + + documented as of this encounter Visit Diagnoses Not on filedocumented in this encounter"
--- OUTSIDE RECORDS SUMMARY | ~2019-02-03 | XMS | Encounter Summary ---
Demographics + + + | Address | [address] | | | [place] [address] | + + + | Home Phone | | + + + | Preferred Language | Unknown | + + + | Marital Status | | + + + | Advent Affiliation | 1041 | + + + | Race | Unknown | + + + | Ethnic Group | Unknown | + + + Author + + + | Author | [facility] | | | and [place] | + + + | Organization | [facility] | | [...] [address] | | | | | [address] [place] | | | | | [address] | | + + + + + Care Team Providers + +------+ + | Care Microbiology Lab Manager Name | Role | Phone | + +------+ + PCP | Unavailable | + +------+ + Encounter Details +--------+ + + + + | Date | Type | Department | Care Team | Description | +--------+ + + + + | 02/27/ | Hospital | [facility] | Roxanne Patino, | | | 2006 | Encounter | MED CTR XRAY [address] | MD [address] | | | | | [place] | [address], | | | | | [place] [address] | [place] [address] | | | | | [phone] | [phone] | | | | | | | [...] [place] | | | | | | [address] | | | | | | | | +--------+---------+ + + + documented as of this encounter Visit Diagnoses Not on filedocumented in this encounter"
--- OUTSIDE RECORDS SUMMARY | ~2019-02-03 | XMS | Clinical Summary ---
Demographics + + + | Address | [address] | | | [place] [address] | + + + | Home Phone | | + + + | Preferred Language | Unknown | + + + | Marital Status | | + + + | Confucianism Affiliation | CAT | + + + | Race | White | + + + | Ethnic Group | Not or | + + + Author + + + | Author | [facility] | + + + | Organization | [facility] | + + + [...] Team Providers + +------+ + | Care Patient Admitting Representative Name | Role | Phone | + +------+ + | Bartolome Frederick DO | PCP | | + +------+ + Source Comments CANDIS is fully live on both EpicCare Ambulatory and EpicCare InPatient.[facility] Allergies + + + + + + [...] 0 | | | Activ | | Nqmslmz-Cppzwwpjc-Un | daily. | | | | | [...] | | | | | | | air quality engineer | | | | | | + [...] + + + + | 01/28/ | Attorney Law Clerk | Neurological Surgery | Michael Durbin MD [...] + + + + | 11/28/ | Attorney Law Clerk | Neurological Surgery | Michael Durbin MD [...] + + + + | 11/04/ | Attorney Law Clerk | Neurological Surgery | Jaison Barber, | Hx of terminologist use | | 2018 | | | [...] | Visit | | [address] | | | | | | [address] | | | | | | [place] [address] | | | | | | [phone] | | | | | | | [...] | N/A: | | | 08/04/ | [id number] | | [id number] - [id number]: | | Spine | | | 2020 [...] | | N/A: | | | | [id number] | | Lordotic 75mm [id number] - | | Spine | | | | 5 / / | | [id number]: Qty: 2 on | | | | | | | | 11/06/2018 by Michael Durbin, | | | | | | | | MD at [facility] IP Rev Location | | | | | | | + +------+-------+ +--------+--------+--------+ + + | Description:L 2-4 | + + + +---+-------+ +---+--------+--------+ | Bone Infuse Kit X Small | | N/A: | | | 11/04/ | [id number] | | [id number] - [id number]: | | Spine | | | 2020 | 0 / | | Qty: 1 on 11/06/2018 by Gifty, | | | | | | /[id number] | | Michael Candelaria MD at [facility] IP Rev | | | | | | [id number] | | Location | | | | | | | + +---+-------+ +---+--------+--------+ | Putty Dbm Maxxeus 10cc / | | N/A: | COMMUNITY | | 08/04/ | 2017-05 | | - [id number]: Qty: 1 | | Spine | TISSUE BANK | | 2020 | 0 / | | on 11/06/2018 by Michael Durbin | | | | | | / | | MD Bari at [facility] IP Rev Location | | | | | | 51 | + +---+-------+ +---+--------+--------+ | Putty Db Maxxeus 5.0cc - | | N/A: | | | 08/04/ | 2016-05 | | [id number]: Qty: 1 on | | Spine | | | 2020 | 0 / | | 11/06/2018 by Michael Durbin, | | | | | | / | | at [facility] IP Rev Location | | | | | | 49 | + +---+-------+ +---+--------+--------+ | Coroent Kaylan-[id number]: Qty: 1 | | N/A: | | | | [id number] | | on 11/06/2018 by Michael Durbin | | Spine | | | | 5 / / | | MD Bari at [facility] Location | | | | | | | + +---+-------+ +---+--------+--------+ + + | Description:L 2-4 | + + + +---+-------+---+---+---+---+ | Emmett Contreras 15 | | N/A: | | | | | | Deg 10 X 22 X 55mm [id number] - | | Spine | | | | | | [id number]: Qty: 1 on | | | | | | | | 11/06/2018 by Michael Durbin, | | | | | | | | at [facility] Rev Location | | | | | | | + +---+-------+---+---+---+---+ + + | Description:L 2-4 | + + + +---+-------+---+---+---+--------+ | Screw Precept Polyaxial 7.5 X | | N/A: | | | | [id number] | | 50mm [id number] - | | Spine | | | | 0A / / | | [id number]: Qty: 4 on | | | | | | | | 11/06/2018 by Michael Durbin, | | | | | | | | MD at [facility] Location | | | | | | | + +---+-------+---+---+---+--------+ + + | Description:Darrell 2-4 | + + + +---+-------+---+---+---+---+ | Screw Precept Polyaxial 7.5 X | | N/A: | | | | | | 55mm [id number] - | | Spine | | | | | | [id number]: Qty: 2 on | | | | | | | | 11/06/2018 by Michael Durbin, | | | | | | | | MD at [facility] Rev Location | | | | | | | + +---+-------+---+---+---+---+ + + | Description:Darrell 2-4 | + + + +---+-------+---+---+---+--------+ | Set Screw Precept [id number] - | | N/A: | | | | [id number] | | [id number]: Qty: 6 on | | Spine | | | | 0 / / | | 11/06/2018 by Michael Durbin, | | | | | | | | at [facility] Location | | | | | [...] | Routin | 11/05/2018 | Hx of terminologist | Results for this | | | [...] | | | | PDT | of terminologist use of | results section. | | [...] | Routin | 11/05/2018 | Hx of terminologist | Results for this | | DIFFERENTIAL [...] body heights are maintained. | | | Lznu-uc-rwutjukf spondylotic changes are again seen in the [...] identified.Vertebral | | body heights are maintained. Dhbn-oc-vmqptbxn spondylotic changes are again seen in | [...] identified. | |Vertebral body heights are maintained. Wyfb-dz-bjelsjfx spondylotic changes are again seen in the [...] RADIOLOGY | [address] | [place] [address] | [phone] | | VOICE RECOGNITION | | | [...] [address] | [place] [address] | | | LAB | | | [...] [facility] | [address] | [place] [address] | | | LAB | | | [...] | | [facility] | | | INDIAN | | | | | + +---------+ [...] [facility] | [address] | [place] [address] | | | LAB | | | [...] [facility] | [address] | [place] [address] | | | LAB | | | [...] | | Not Detected result for the [employer] antimicrobial resistance gene | [facility] | | [...] [address] | [place] [address] | | | LAB | | | [...] | | | clusters (AA)Comment: | | [facility] | | | | This is [...] [address] | [place] [address] | | | LAB | | | [...] [address] | [place] [address] | | | LAB | | | [...] [address] | [place] [address] | | | LAB | | | [...] [address] | [place] [address] | | | LAB | | | [...] [facility] | [address] | [place] [address] | | | LAB | | | [...] RADIOLOGY | [address] | [place] [address] | [phone] | | VOICE RECOGNITION | | | [...] [facility] | [address] | [place] [address] | | | LAB | | | [...] [facility] | [address] | [place] [address] | | | LAB | | | [...] [address] | [place] [address] | | | LAB | | | [...] RADIOLOGY | [address] | [place] [address] | [phone] | + + + + + CULTURE, [...] MISSY/[place] | [address] | [place] [address] | | | LAB | | | [...] BLOOD | [address] | [place] [address] | | | BANK | | | [...] BLOOD | [address] | [place] [address] | | | BANK | | | [...] | | | | | | | [address] | | + +--------+ +--------+ + +--------+ [...] | B | | sent | | [place], [place] | | | | | | | | [address] | | + +--------+ +--------+ + +--------+ [...] | 2 | [phone] | [place] [address] | | | michael | | | 6 (Home) | | | | | | | [phone] | | | | | | | 6 (Work) | | + +--------+ +--------+ + + | Lupillo De La Paz | Person | Self | [birth year] | | [address] | | | al/Fam | | [phone] | [phone] | [place] [address] | | | michael | | | [...]
--- OUTSIDE RECORDS SUMMARY | ~2019-02-03 | XMS | Encounter Summary ---
Demographics + + + | Address | [address] | | | [place] [address] | + + + | Home Phone | | + + + | Preferred Language | Unknown | + + + | Marital Status | | + + + | Quaker Affiliation | 1041 | + + + | Race | Unknown | + + + | Ethnic Group | Unknown | + + + Author + + + | Author | [facility] | | | and [place] | + + + | Organization | [facility] | | | [...] [address] | | | | | [place] | | | | | [address] | | + + + + + Care Team Providers + +------+ + | Care Postal Supervisor Name | Role | Phone | + +------+ + PCP | Unavailable | + +------+ + Encounter Details +--------+ + + + + | Date | Type | Department | Care Team | Description | +--------+ + + + + | 06/24/ | Hospital | [facility] | | | | 2002 - | Encounter | MED CTR MED ONC | | | | | | [address] | | | | 07/02/ | | [place] [address] | | | | 2002 | | [phone] | | | +--------+ + + + [...] 2020 | Visit | | [address] [facility] | | | | | | [address] [place] | | | | | | [address] | | | | | | | | +--------+---------+ + + + documented as of this encounter Visit Diagnoses Not on filedocumented in this encounter"
--- OUTSIDE RECORDS SUMMARY | ~2019-02-03 | XMS | Encounter Summary ---
Demographics + + + | Address | [address] | | | [place] [address] | + + + | Home Phone | | + + + | Preferred Language | Unknown | + + + | Marital Status | | + + + | Baptism Affiliation | [id number] | + + + [...] [place] | | | | | [address] | | + + + + + Care Team Providers + +------+ + | Care Broadcast Operations Director Name | Role | Phone | [...] + + | Closed | Specialty | Gastroenterol | Diagnoses | Otoniel, | Anais, | | | Services | ogy | GI bleed | Bartolome Dawn, | Josiah Dawn MD | | | Required | | not | DO [address] | [address], | | | | | requiring | [address] [place] | [address] | | | | | more than 4 | [place], [place] | [place], | | | | | units of | [address] | [place] [address] | | | | | blood in 24 | Phone: | Phone: | | | | | hours, ICU, | [phone] | [phone] | | | | | or surgery | Fax: | Fax: | | | | | | [phone] | [phone] | +--------+ + + + + + Reason for Visit + + + | Reason | Comments | + + + | Establish Care | Re-establish care, discuss recent imaging and labs done at [facility] | + + + | Back Pain | Bulging disk and bone spurs, need for referral for Neurologist? | + + + Encounter Details +--------+---------+ + + + | Date | Type | Department | Care Team | Description | +--------+---------+ + + + | 11/20/ | Office | [facility] | Bartolome Frederick | GI bleed not | | 2018 | Visit | [facility] | E, DO [address] | requiring more than | | | | [facility] | [place], [place] | 4 units of blood in | | | | [address] [place], | [address] | 24 hours, ICU, or | | | | [place] [address] | [phone] | surgery (Primary | | | | [phone] | | Dx); Hypotension due | | | | | | to medication; | | | | | | Anemia, unspecified | | | | | | type; Chronic | | | | | | bilateral low back | | | | | | pain with bilateral | | | | | | sciatica; | | | | | | Anticoagulant | | | | | | long-term use | +--------+---------+ + + + Social History [...] 2002 | + +-------+---+--------+ + + | Tobacco Cessation: Ready to Quit: No; Counseling Given: Yes | | Comments: 2 [...] + + + | Blood Pressure | 120/62 | 11/20/2017 10:13 AM | | | | | PDT | | + + + + + | Pulse | 78 | 11/20/2017 10:13 AM | | | | | PDT | | + + + + + | Temperature | 37 C (98.6 F) | 11/20/2017 10:13 AM | | | | | PDT | | + + + + + | Respiratory Rate | 15 | 11/20/2017 10:13 AM | | | | | PDT | | + + + + + | Oxygen Saturation | 99% | 11/20/2017 10:13 AM | | | | | PDT | | + + + + + | Inhaled Oxygen | - | - | | | Concentration | | | | + + + + + | Weight | 93.5 kg (206 lb 3.2 | 11/20/2017 10:13 AM | | | | oz) | PDT | | + + + + + | Height | 177.8 cm (5' 10") | 11/20/2017 10:13 AM | | | | | PDT | | + + + + + | Body Mass Index | 29.59 | 11/20/2017 10:13 AM | | | | | PDT | | + + + + + documented in this encounter Progress Bartolome Ruiz DO - 11/20/2017 10:00 AM PDT Patient ID: Lupillo Castaneda is a 67 y.o. year old male Chief Complaint: Chief Complaint Patient presents with Establish Care Re-establish care, discuss recent imaging and labs done at [facility] Back Pain Bulging disk and bone spurs, need for referral for Neurologist? Assessment GI bleed not requiring more than 4 units of blood in 24 hours, ICU, or surgery (Primary) - CBC no Differential; Future - [facility]B [facility] Hypotension due to medication Anemia, unspecified type Chronic bilateral low back pain with bilateral sciatica Anticoagulant long-term use Other orders - Pantoprazole Sodium; Take 1 tablet by mouth 2 times daily (before meals). Dispense: 120 tablet; Refill: 0 - Tlpagksgkx-Gwncbmi-Vyodnkob; Take 1 capsule by mouth Daily as needed for Pain or Head aches (Use only as needed). Dispense: 30 capsule; Refill: 1 Plan -Continue current medications -Go to lab today for blood work -Referral sent to Dr. [facility]zo [facility] -We will get reports from Dr. Cruz and Dr. Licona, should have recommended referral for Daisy rosurgeon Continue bid PPI Anticipate neurosurgery referral with Dr Cook REFUSED FLU SHOT TODAY 40 minute visit with > 50% time spent in counseling. Subjective: MICAH Wesley presents to the clinic today to re-establish care from [facility], and discuss recent hospi talization and back pain. He is not having any blood in his stools anymore. His white cell count was elevated in the hospital. He went back on the Verapamil for his blood pressure. He had a INR yesterday it was 2.6. His back pain is worse. Dr. Cruz did an MRI on his back, he has bulging disc and bone spur s and cannel is now narrowing. He is getting pain in both legs and right toe is going numb. He now sees Dr Licona in [facility]. Dr. Licona was supposed to send recommendation for neurosurge on. He is using Gabapentin for the pain. He does get sleepy with all the medications. He is starting to get headaches badly. He is requesting to get Butalbital again. Current Outpatient Prescriptions Medication Sig Dispense Refill Ascorbic Acid (VITAMIN C) 500 MG CAPS Take 500 mg by mouth. atorvaSTATin (LIPITOR) 40 mg tablet Take 40 mg by mouth nightly. baclofen (LIORESAL) 20 mg tablet Take 20 mg by mouth 3 times daily. qpfvzljdlc-aqpwzww-stqcjqie (FIORINAL) 50-325-40 mg per capsule Take 1 capsule by mouth Daily as needed for Pain or Headaches (Use only as needed). 30 capsule 1 CALCIUM/MAGNESIUM/ZINC FORMULA PO Take 1,000 mg by [...] times daily (before meals ). 120 tablet 0 rOPINIRole (REQUIP) 4 mg tablet Take 4 [...] Take 5 mg by mouth Daily. 2.5mg Sunday, and . Remainder of days is 5mg No current facility-administered [...] due to medication Anemia Anticoagulant long-term use Family History Problem Relation Age of Onset Cancer Mother Hypertension Mother Other (see comment) Mother Joint replacement Heart failure Mother CHF Diabetes Father Heart disease Father Hypertension Father Stroke Father Diabetes Brother Asthma Brother Heart disease Brother leaky heart valve Prostate cancer Brother No Known Problems Brother No Known Problems Sister No Known Problems Child No Known Problems Child Past Surgical History: Procedure Laterality Date APPENDECTOMY CATARACT REMOVAL 1997 & 1999 Bilateral COLONOSCOPY 2015 HERNIA REPAIR 11/2012 KNEE ARTHROSCOPY Left 09/09/2012 KNEE SURGERY Bilateral MITRAL VALVE REPLACEMENT 2003 TONSILLECTOMY TOTAL KNEE ARTHROPLASTY Left 03/2017 Social History Social History Marital status: Spouse name: AI CASTANEDA Number of children: 2 Years of education: N/A 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 [employer] Social History Main Topics Smoking status: Current Every Day Smoker Types: Cigars Smokeless tobacco: Former User Types: Snuff Quit date: 2002 Comment: 2 "cigarillos"/day Alcohol use Yes Comment: Occassional Drug use: No Sexual activity: Yes Partners: Female Other Topics Concern Not on file Social History Narrative Exercise: rehab/ physical therapy, also walking when he can Caffeine: soda once in awhile Living situation: with Ai Allergies Allergen Reactions Penicillins Anaphylaxis and Other (See Comments) Stopped breathing Codeine Sulfate Lisinopril Other (See Comments) Reaction not specified in outside medical records Pollen Extract Other (See Comments) Reaction not specified in outside medical records Review of Systems Constitutional: Positive for fatigue. Negative for appetite change and fever. Respiratory: Negative for cough, chest tightness and shortness of breath. Cardiovascular: Negative for chest pain and palpitations. Gastrointestinal: Negative for abdominal pain, blood in stool, diarrhea and nausea. Musculoskeletal: Positive for back pain. Negative for neck pain. Neurological: Positive for headaches. Negative for light-headedness. Objective: Vitals: BP 120/62 | Pulse 78 | Temp 37 C (98.6 F) (Oral) | Resp 15 | Ht 1.778 m (5' 10") | Wt 93.5 kg (206 lb 3.2 oz) | SpO2 99% | BMI 29.59 kg/m Physical Exam Constitutional: He appears well-developed and well-nourished. Eyes: Pupils are equal, round, and reactive to light. Cardiovascular: Normal rate and regular rhythm. Murmur (and click) heard. Pulmonary/Chest: Effort normal and breath sounds normal. Abdominal: Bowel sounds are normal. Musculoskeletal: Negative bilateral straight leg raising No disturbance of gait Strength normal Lymphadenopathy: He has no cervical adenopathy. Neurological: He is alert. No cranial nerve deficit. Reflex Scores: Bicep reflexes are 2+ on the right side and 2+ on the left side. Patellar reflexes are 2+ on the right side and 1+ on the left side. Achilles reflexes are 0 on the right side and 0 on the left side. Limited Balance Psychiatric: He has a normal mood and affect. Entered by Omid Sanches, acting as scribe for Dr. Otoniel DO. The documentation recorded by the scribe accurately reflects the service I personally perfo rmed and the decisions made by me. Dr. Bartolome Frederick DO. 11/20/2017 11:13Electronically signed by DO shira Harding 11/20/2017 11:14 AM Tasha Jameson CC CMA - 11/20/2017 10:00 AM PDTRobsuad Castaneda pre sents today with Chief Complaint of: Re-establish care, discuss recent imaging and labs done at [facility]. Bulging disk and bone spurs, need for referral for Neurologist? Current medications verified with her at time of visit. Pt currently shows no s/s of distress, shortness of breath. Vital signs: BP 120/62 | Pulse 78 | Temp 37 C (98.6 F) (Oral) | Resp 15 | Ht 1.778 m (5' 10") | Wt 93.5 kg (206 lb 3.2 oz) | SpO2 99% | BMI 29.59 kg/m Labs Obtained per protocol: None. Verbal Report given to: DO. Tasha Noland CC CMA documented in this encounter Plan of Treatment +--------+---------+ + + + | Date | Type | Specialty | Care Team | Description | +--------+---------+ + + + | 02/19/ | Office | Nephrology | Ismael Young MD | | | 2020 | Visit | | [address] [place] | | | | | | [address] [facility] | | | | | | [address] | | | | | | | | +--------+---------+ + + + + + +--------+ + + | Name | Type | Priori | Associated Diagnoses | Order Schedule | | | | ty | | | + + +--------+ + + | * [facility] | Outpatient | Routin | GI bleed not | Ordered: 11/20/2017 | | Gastroenterology - | Referral | e | requiring more than | | | AMB Referral | | | 4 units of blood in | | | | | | 24 hours, ICU, or | | | | | | surgery | | + + +--------+ + + documented as of this encounter Results CBC no Differential (11/20/2017 11:12 AM PDT) + + + + + + | Component | Value | Ref Range | Performed | Pathologist | | | | | At | Signature | + + + + + + | WBC | 12.6 (H) | 4.6 - 10.5 K/uL | [place] | | | | | | [facility] | [facility] | | | | [facility] | | + + + + + + | RBC | 2.94 (L) | 4.36 - 5.83 | [place] | | | | | M/uL | [facility] | [facility] | | + + + + + + | Hemoglobin | 9.7 (L) | 13.1 - 17.4 | [place] | | | | | g/dL | [facility] | [facility] | | + + + + + + | Hematocrit | 28.8 (L) | 39.0 - 51.9 % | [facility] | | | | | | [facility] | [facility] | | + + + + + + | MCV | 98.1 (H) | 82.0 - 96.0 fL | [facility] | | | | | | [facility] | [facility] | | + + + + + + | MCH | 33.0 (H) | 27.7 - 32.3 pg | [place] | | | | | | [facility] | | + + + + + + | MCHC | 33.7 | 32.0 - 36.9 | [place] | | | | | g/dL | [facility] | [facility] | [facility] | | + + + + + + | RDW-CV | 15.1 | 0.0 - 17.0 % | [place] | | | | | | [facility] | [facility] | [facility] | | | | [facility] | | + + + + + + | Platelet | 341 | 150 - 450 K/uL | [facility] | | | Count | | | [facility] | [facility] | | + + + + + + | MPV | 8.1 (L) | 9.4 - 12.4 fL | [facility] | | | | | | [facility] | | [facility] | | [facility] | [facility] | | + + + + + + + + | Specimen | + + | Blood | + + + + + + + | Performing | Address | City/State/Zipcode | Phone Number | | Organization | | | | + + + + + | [facility] [facility] | [address] | [place] [address] | [phone] | | [facility] | | | | | [facility] | | | | + + + + + documented in this encounter Visit Diagnoses + + | Diagnosis | + + | GI bleed not requiring more than 4 units of blood in 24 hours, ICU, or surgery - | | Primary Hemorrhage of gastrointestinal tract, unspecified | + + | Hypotension due to medication | + + | Anemia, unspecified type | + + | Chronic bilateral low back pain with bilateral sciatica | + + | Anticoagulant long-term use Encounter for long-term (current) use of anticoagulants | + + documented in this encounter
--- OUTSIDE RECORDS SUMMARY | ~2019-02-03 | XMS | Encounter Summary ---
Demographics + + + | Address | [address] | | | [place] [address] | + + + | Home Phone | | + + + | Preferred Language | Unknown | + + + | Marital Status | | + + + | Jew Affiliation | CAT | + + + [...] Team Providers + +------+ + | Care Ship Engines Operating Engineer Name | Role | Phone | + +------+ + PCP | Unavailable | + +------+ + Encounter Details +--------+ + + + + | Date | Type | Department | Care Team | Description | +--------+ + + + + | 07/02/ | H&P-Transcr | | Physical, History | Hstry & Physical | | 2002 | ibed | | & | | +--------+ + + + + [...] | 2019 | Visit | | [address] | | | | | | [address] | | | | | | [place] [address] | | | | | | [phone] | | | | | | | | +--------+---------+ + + + documented as of this encounter Visit Diagnoses Not on filedocumented in this encounter"
--- OUTSIDE RECORDS SUMMARY | ~2019-02-03 | XMS | Encounter Summary ---
Demographics + + + | Address | [address] | | | [place] [address] | + + + | Home Phone | | + + + | Preferred Language | Unknown | + + + | Marital Status | | + + + | Gnosticism Affiliation | CAT | + + + [...] Team Providers + +------+ + | Care Aligner Barrel And Receiver Name | Role | Phone | + +------+ + | Bartolome Frederick DO | PCP | | + +------+ + Encounter Details +--------+ + + + + | Date | Type | Department | Care Team | Description | +--------+ + + + + | 11/05/ | Anesthesia | [facility]uality | Jess, | | | 2019 | Event | Preoperative | GIOVANNI [address] | | | | | Assessment Clinic | [address] [place], | | | | | [address] | [place] [address] | | | | | [address] | | | | | | [place], [place] | | | | | | [address] | | | | | | [phone] | | | +--------+ + + + [...] | 2019 | Visit | | [address] [facility] | | | | | | [facility] [address] | | | | | | [place] [address] | | | | | | [phone] | | | | | | | | +--------+---------+ + + + documented as of this encounter Visit Diagnoses Not on filedocumented in this encounter"
--- OUTSIDE RECORDS SUMMARY | ~2019-02-03 | XMS | Encounter Summary ---
Demographics + + + | Address | [address] | | | [place] [address] | + + + | Home Phone [...] + + + | Author | [facility] | | | and [place] | + + + | Organization | [facility] | | | [...] [address] | | | | | [address] | | + + + + + Care Team Providers + +------+ + | Care Assistant Cross Country Coach Name | Role | Phone | + +------+ + | Bartolome Frederick DO | PCP | | + +------+ + Encounter Details +--------+---------+ + + + | Date | Type | Department | Care Team | Description | +--------+---------+ + + + | 10/11/ | Office | [facility] | Aly Shukla, | CKD (chronic kidney | | 2019 | Visit | NEPHROLOGY OMAYRA | ASSESSOR [address] | disease), stage III | | | | [address] | [place] | ([facility]) (Primary Dx) | | | | [address] | [facility] | | | | | [place] | [address] | | | | | [address] | [phone] | | | | | [phone] | | | +--------+---------+ + + + [...] | Shots of liquor 0-1 | | Calvin) | | | Standard drinks or | [...] this encounter Patient Instructions Patient Instructions Aly Shulka ARNP - 10/11/2018 9:40 AM PDTStop losartan [...] engthy IV Abx course he tells me ([facility]). Reports he had a GI bleed in late 2017, dark stools, was hospitalized at [facility] in [place] f or a few days. Reports no [...] have a RFP, Magnesium, CBC, Urine total xdrfoeg-of-mcjiwxkgdv ratio before he co mes back in [address] Frederick for the opportunity to see this patient in F/U today. Please do not he sitate to call me at any time with questions or concerns. Truly yours, Aly LOTT [facility] Nephrology documented in this encounter Plan of Treatment +--------+---------+ + + + | Date | Type | Specialty | Care Team | Description | +--------+---------+ + + + | 02/19/ | Office | Nephrology | Ismael Young MD | | | 2019 | Visit | | [address] [facility] | | | | | | [address] [place], [place] | | | | | | [id number] | | | | | | | [...]
--- OUTSIDE RECORDS SUMMARY | ~2019-02-03 | XMS | Encounter Summary ---
Demographics + + + | Address | [address] | | | [place] [address] | + + + | Home Phone | | + + + | Preferred Language | Unknown | + + + | Marital Status | | + + + | Gnosticist Affiliation | CAT | + + + | Race | White | + + + | Ethnic Group | Not or | + + + Author + + + | Author | [facility] | + + + | Organization | [facility] | + + + | [...] Team Providers + +------+ + | Care Lamps Tester And Inspector Name | Role | Phone | + +------+ + PCP | Unavailable | + +------+ + Encounter Details +--------+ + + + + | Date | Type | Department | Care Team | Description | +--------+ + + + + | 07/06/ | Results | Pulmonary & | Joanne Quach, | | | 2002 | Only | Critical Care | MD | | | | | Medicine at | | | | | | [facility] | | | | | | [address] | | | | | | [address] Mailcode: | | | | | | [id number] | | | | | | [address] | | | | | | [place], [place] | | | | | | [address] | | | | | | [phone] | | | +--------+ + + + [...] [address] | | | | | | [place] [address] | | | | | | [phone] | | | | | | | | +--------+---------+ + + + documented as of this encounter Procedures + +--------+ + + + | Procedure Name | Priori | Date/Time | Associated Diagnosis | Comments | | | ty | | | | + +--------+ + + + | URINE, MICROSCOPIC | Urgent | 07/07/2002 | | Results for this | | EXAM | | 9:00 PM | | procedure are in the | | | | PDT | | results section. | + +--------+ + + + | CULTURE, CATH TIP | Routin | 07/07/2002 | | Results for this | | BACTI | e | 8:32 PM | | procedure are in the | | | | PDT | | results section. | + +--------+ + + + | BLOOD BANK PRODUCT | Routin | 07/07/2002 | | Results for this | | | e | 7:45 PM | | procedure are in the | | | | PDT | | results section. | + +--------+ + + + | BLOOD BANK PRODUCT | Routin | 07/07/2002 | | Results for this | | | e | 7:45 PM | | procedure are in the | | | | PDT | | results section. | + +--------+ + + + | BLOOD BANK PRODUCT | Routin | 07/07/2002 | | Results for this | | | e | 7:45 PM | | procedure are in the | | | | PDT | | results section. | + +--------+ + + + | BLOOD BANK PRODUCT | Routin | 07/07/2002 | | Results for this | | | e | 7:45 PM | | procedure are in the | | | | PDT | | results section. | + +--------+ + + + | BLOOD BANK PRODUCT | Routin | 07/07/2002 | | Results for this | | | e | 7:45 PM | | procedure are in the | | | | PDT | | results section. | + +--------+ + + + | BLOOD BANK PRODUCT | Routin | 07/07/2002 | | Results for this | | | e | 7:45 PM | | procedure are in the | | | | PDT | | results section. | + +--------+ + + + | INR | Urgent | 07/07/2002 | | Results for this | | | | 7:45 PM | | procedure are in the | | | | PDT | | results section. | + +--------+ + + + | BASIC METABOLIC SET | Urgent | 07/07/2002 | | Results for this | | (NA, K, CL, TCO2, | | 7:45 PM | | procedure are in the | | BUN, CR, GLU, CA) | | PDT | | results section. | + +--------+ + + + | CBC ONLY | Urgent | 07/07/2002 | | Results for this | | | | 7:45 PM | | procedure are in the | | | | PDT | | results section. | + +--------+ + + + | APTT (ACT. PART. | Urgent | 07/07/2002 | | Results for this | | THROMBO TIME) | | 7:45 PM | | procedure are in the | | | | PDT | | results section. | + +--------+ + + + | TYPE AND CROSSMATCH | Routin | 07/07/2002 | | Results for this | | | e | 7:45 PM | | procedure are in the | | | | PDT | | results section. | + +--------+ + + + | GENTAMYCIN(TOX) | Routin | 07/06/2002 | | Results for this | | | e | 12:45 AM | | procedure are in the | | | | PDT | | results section. | + +--------+ + + + documented in this encounter Results URINE, MICROSCOPIC EXAM (07/07/2002 9:00 PM PDT) + +-------+ + + + | Component | Value | Ref Range | Performed | Pathologist | | | | | At | Signature | + +-------+ + + + | SQUAMOUS | Few | /hpf | [facility] | | | [...] + + + | WHITE CELLS | 2-3 | 0 - 5 /hpf | [facility] | | | | | | DEPARTMENT | | | | | | OF | | | | | | PATHOLOGY | | + +-------+ + + + | BACTERIA | Many | /hpf | [facility] | | | [...] +-------+ + + + | GRANULAR | 0-1 | /lpf | [facility] | | | [...] | + + + + + | [facility] | [facility] | [place] [address] | | | PATHOLOGY | [address] | | | + + + + + | [facility] DEPARTMENT OF | [facility] | [place] [address] | | | PATHOLOGY | [address] | | | + + + + + CULTURE, CATH TIP BACTI (07/07/2002 8:32 PM PDT) + + + + + + | Component | Value | Ref Range | Performed | Pathologist | | | | | At | Signature | + + + + + + | SOURCE BODY | PICC line | | | | | SITE | | | | | + + + + + + | CULTURE | Catheter Tip | | | | | RESULT | Culture | | | | | | Source...............: | | | | | | PICC line | | | | | | Culture: | | | | | | [...] + + + | [facility] | [address] | [place] [address] | | | LAB-MICRO | | | | + + + + + PROTHROMBIN TIME (07/07/2002 7:45 PM PDT) + + + + + + | Component | Value | Ref Range | Performed | Pathologist | | | | | At | Signature | + + + + + + | INR | 1.13Comment: | INR | [facility] | | | [...] Performed At | + + + | New method and Reference Ranges effective 02 for : | [facility] | | APTT, Thrombin Time, Fibrinogen, and D-Dimer. | DEPARTMENT OF | | | PATHOLOGY | + + + + + + + + | Performing | Address | City/State/Zipcode | Phone Number | | Organization | | | | + + + + + | [facility] DEPARTMENT | [address] [place] [address] | [place] [address] | | | PATHOLOGY | [address] | | | + + + + + | [facility] DEPARTMENT OF | [address] [place] [address] | [place] [address] | | | PATHOLOGY | [address] | | | + + + + + APTT (ACT. PART. THROMBO TIME) (07/07/2002 7:45 PM PDT) + + + + + [...] Performed At | + + + | New method and Reference Ranges effective 02 for : | [facility] | | APTT, Thrombin Time, Fibrinogen, and D-Dimer. | DEPARTMENT OF | | | PATHOLOGY | + + + + + + + + | Performing | Address | City/State/Zipcode | Phone Number | | Organization | | | | + + + + + | [facility] DEPARTMENT OF | [address] | [place] [address] | | | PATHOLOGY | [address] | | | + + + + + | [facility] DEPARTMENT OF | [address] | [place] [address] | | | PATHOLOGY | [address] | | | + + + + + CBC ONLY WITH PLATELET (07/07/2002 7:45 PM PDT) + + + + + + | Component | Value | Ref Range | Performed | Pathologist | | | | | At | Signature | + + + + + + | WHITE CELL | 11.5 (H) | 4.4 - 11.0 K/cu | [...] + | HEMOGLOBIN | 9.4 (L) | 13.0 - 17.5 | [facility] [...] + + + + | MPV | 6.5 (L) | 7.4 - 10.4 fL | [...] | + + + + + | [facility] | [address] | [place] [address] | | | PATHOLOGY | [address] | | | + + + + + | [facility] | [address] [place] [address] | [place] [address] | | | PATHOLOGY | [address] | | | + + + + + BASIC METABOLIC SET (07/07/2002 7:45 PM PDT) + +---------+ + + + [...] + + + + + | [facility] DEPARTMENT OF | [address] | [place] [address] | | | PATHOLOGY | [address] | | | + + + + + | [facility] DEPARTMENT OF | [address] | [place] [address] | | | PATHOLOGY | [address] | | | + + + + + BLOOD BANK PRODUCT (07/07/2002 7:45 PM PDT) + + + + + [...] + + + + | PRODUCT | [id number] | | [facility] | | | UNIT [...] + + + | STATUS OF | Released | | [facility] | | | UNIT [...] + | [facility] DEPARTMENT OF | [address] | [place] [address] | | | PATHOLOGY | [address] | | | + + + + + | [facility] DEPARTMENT OF | [address] | [place] [address] | | | PATHOLOGY | [address] | | | + + + + + BLOOD BANK PRODUCT (07/07/2002 7:45 PM PDT) + + + + + [...] + + + + | PRODUCT | [id number] | | [facility] | | | UNIT [...] + + + | STATUS OF | Released | | [facility] | | | UNIT [...] + + + + + | [facility] DEPARTMENT OF | [facility] | [place] [address] | | | PATHOLOGY | [address] | | | + + + + + | [facility] DEPARTMENT OF | [facility] | [place] [address] | | | PATHOLOGY | [address] | | | + + + + + ANTIBODY SCREEN & CROSSMATCH (07/07/2002 7:45 PM PDT) + +-------+ + + + [...] Performed At | + + + | SPEC OUTDATES 07/11/02 @ 0700 | [facility] | | | DEPARTMENT OF | | | PATHOLOGY | + + + + + + + + | Performing | Address | City/State/Zipcode | Phone Number | | Organization | | | | + + + + + | [facility] DEPARTMENT OF | [address] | [place] [address] | | | PATHOLOGY | [address] | | | + + + + + | [facility] DEPARTMENT OF | [address] | [place] [address] | | | PATHOLOGY | [address] | | | + + + + + BLOOD BANK PRODUCT (07/07/2002 7:45 PM PDT) + + + + + [...] + + + + | PRODUCT | [id number] | | [facility] | | | UNIT [...] | + + + + + | [facility] | [address] | [place] [address] | | | PATHOLOGY | [address] | | | + + + + + | [facility] | [address] | [place] [address] | | | PATHOLOGY | [address] | | | + + + + + BLOOD BANK PRODUCT (07/07/2002 7:45 PM PDT) + + + + + [...] + + + + | PRODUCT | [id number] | | [facility] | | | UNIT [...] | + + + + + | [facility] | [address] | [place] [address] | | | PATHOLOGY | [address] | | | + + + + + | [facility] | [address] | [place] [address] | | | PATHOLOGY | [address] | | | + + + + + BLOOD BANK PRODUCT (07/07/2002 7:45 PM PDT) + + + + + [...] + + + + | PRODUCT | [id number] | | [facility] | | | UNIT [...] + + + + + | [facility] DEPARTMENT OF | [address] | [place] [address] | | | PATHOLOGY | [address] | | | + + + + + | [facility] DEPARTMENT OF | [address] | [place] [address] | | | PATHOLOGY | [address] | | | + + + + + BLOOD BANK PRODUCT (07/07/2002 7:45 PM PDT) + + + + + [...] + + + + | PRODUCT | [id number] | | [facility] | | | UNIT [...] + + + + + | [facility] DEPARTMENT OF | [address] | [place] [address] | | | PATHOLOGY | [address] | | | + + + + + | [facility] DEPARTMENT OF | [facility] | [place] [address] | | | PATHOLOGY | [address] | | | + + + + + GENTAMYCIN(TOX) (07/06/2002 12:45 AM PDT) + + + + + + | Component | Value | Ref Range | Performed | Pathologist | | | | | At | Signature | + + + + + + | GENTAMYCIN | 6.2 (H) | <2.0 ug/mL | [facility] | | [...] + + + + | DRAW | right before dose | | [facility] | | [...] + + + + + | [facility] DEPARTMENT OF | [address] | [place] [address] | | | PATHOLOGY | [address] | | | + + + + + | [facility] DEPARTMENT OF | [address] | [place] [address] | | | PATHOLOGY | [address] | | | + + + + + documented in this encounter Visit Diagnoses Not on filedocumented in this encounter"
--- OUTSIDE RECORDS SUMMARY | ~2019-02-03 | XMS | Encounter Summary ---
Demographics + + + | Address | [address] | | | [place] [address] | + + + | Home Phone | | + + + | Preferred Language | Unknown | + + + | Marital Status | | + + + | Baptist Affiliation | 1041 | + + + | Race | Unknown | + + + | Ethnic Group | Unknown | + + + Author + + + | Author | [facility] | | | and [place] | + + + | Organization | [facility] | | [...] [place] | | | | | [address] | | + + + + + Care Team Providers + +------+ + | Care Ice Guard Skating Rink Name | Role | Phone | + [...] region with | [place], [place] | [place] [address] | | | | | radiculopath | [address] | Phone: | | | | | y | Phone: | [phone] | | | | | | [phone] | Fax: | | | | | | Fax: | [phone] | | | | | | [phone] | | +--------+ + + + + [...] (status of | | 2019 | | [facility] | E, DO [address] | referral to Neuro | | | | [facility] | [place], [place] | surgeon for back?) | | | | [address] [place], | [address] | | | | | [place] [address] | [phone] | | | | | [phone] | | | +--------+ + + + [...] 2019 | Visit | | [address] [facility] | | | | | | [address] [place] | | | | | | [address] | | | | | | | [...]
--- OUTSIDE RECORDS SUMMARY | ~2019-02-03 | XMS | Encounter Summary ---
Demographics + + + | Address | [address] | | | [place] [address] | + + + | Home Phone | | + + + | Preferred Language | Unknown | + + + | Marital Status | | + + + | Mu-Ism Affiliation | 1041 | + + + | Race | Unknown | + + + | Ethnic Group | Unknown | + + + Author + + + | Author | [facility] | | | and [place] | + + + | Organization | [facility] | | | [...] [address] | | | | | [address] | | + + + + + Care Team Providers + +------+ + | Care Commercial Escrow Officer Name | Role | Phone | [...] | both sides | [address] | [place], [place] | | | | | Sagittal | [place], [place] | [address] Phone: | | | | | plane | [address] | [phone] | | | | | imbalance | Phone: | Fax: | | | | | Acquired | [phone] | [phone] | | | | | flat back | Fax: | | | | | | syndrome | [phone] | | | | | | Deconditione [...] syndrome | | 2019 | Visit | [facility] | E, DO [address] | of both sides | | | | MEDICAL CL[facility] [address] | [place], [place] | (Primary Dx); | | | | [address] [facility], | [address] | Sagittal plane | | | | [place] [address] | [phone] | imbalance; 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 He saw [facility] Orthopedic Surgery for Piriformis Syndrome of both [...] affect. Entered by Ame Guillen CNA 2, [facility], acting as scribe for Dr. Otoniel DO [...] 2020 | Visit | | [address] [facility] | | | | | | [address] [place], [place] | | | | | | [address] | | | | | | | [...]
--- OUTSIDE RECORDS SUMMARY | ~2019-02-03 | XMS | Encounter Summary ---
Demographics + + + | Address | [address] | | | [place] [address] | + + + | Home Phone | | + + + | Preferred Language | Unknown | + + + | Marital Status | | + + + | Yazidism Affiliation | 1041 | + + + [...] [address] | | | | | [facility] [place] | | | | | [address] | | + + + + + Care Team Providers + +------+ + | Care Level Vial Inside Grinder Name | Role | Phone | + +------+ + PCP | Unavailable | + +------+ + Encounter Details +--------+ + + + + | Date | Type | Department | Care Team | Description | +--------+ + + + + | 03/30/ | Hospital | [facility] | | | | 2008 | Encounter | [facility] | | | | | | [address] | | | | | | [place] | | | | | | [address] | | | | | | [phone] | | | +--------+ + + + [...] 2020 | Visit | | [address] [facility] | | | | | | [address] [place] | | | | | | [address] | | | | | | | | +--------+---------+ + + + documented as of this encounter Visit Diagnoses Not on filedocumented in this encounter"
--- OUTSIDE RECORDS SUMMARY | ~2019-02-03 | XMS | Encounter Summary ---
Demographics + + + | Address | [address] | | | [place] [address] | + + + | Home Phone | | + + + | Preferred Language | Unknown | + + + | Marital Status | | + + + | Synagogue Affiliation | 1041 | + + + [...] [place] | | | | | [address] | | + + + + + Care Team Providers + +------+ + | Care Wagon Winder Name | Role | Phone | + +------+ + | Bartolome Frederick DO | PCP | | + +------+ + Encounter Details +--------+ + + + + | Date | Type | Department | Care Team | Description | +--------+ + + + + | 11/29/ | Orders Only | [facility] | Samy Jennings, | | | 2017 | | CONVERSION 888 | [address] | | | | | [place] | [facility], | | | | | [place], [place] | [place] [address] | | | | | [address] | [phone] | | | | | [phone] | | | +--------+ + + + [...] 2020 | Visit | | [address] [facility] | | | | | | [address] [place], [place] | | | | | | [address] | | | | | | | | +--------+---------+ + + + documented as of this encounter Procedures + +--------+ + + + | Procedure Name | Priori | Date/Time | Associated Diagnosis | Comments | | | ty | | | | + +--------+ + + + | ECHO INTERPRETATION | Routin | 11/29/2017 | | Results for this | | OF OUTSIDE FILMS | e | 9:53 AM | | procedure are in the | | | | PDT | | results section. | + +--------+ + + + documented in this encounter Results ECHO Interpretation of Outside Films (11/29/2017 9:53 AM PDT) + + | Specimen | + + | | + + + + + | Impressions | Performed At | + + + | 1. Overall left ventricular systolic function is normal with, an EF | | | between 55 - 60 %. 2. The right ventricle is normal in size and | | | function. 3. The left atrium is mild-moderately enlarged. 4. There | | | is moderate aortic stenosis, with peak/mean pressure gradient of | | | 28.16mmHg / 14.69mmHg, the aortic valve area by continuity equation is | | | 1.1cm . There has been relatively rapid progression of his | | | aortic valve disease in comparison to the measurements noted on the | | | previous echocardiographic study, done 03/16/17. 5. The mechanical MVR | | | ([address] [facility]) is well seated, with normal function. | | + + + + + + | Narrative | Performed At | + + + | Patient Name: Lupillo De La Paz Date of : 1950 | | | Performing Physician: SAMY JENNINGS MD | | | | | | INDICATIONS [facility] DONALD MECHANICAL MV REPLACEMENT, | | | CONCLUSIONS 1. Overall left ventricular systolic | | | function is normal with, an EF between 55 - 60 %. 2. The right | | | ventricle is normal in size and function. 3. The left atrium is | | | mild-moderately enlarged. 4. There is moderate aortic stenosis, with | | | peak/mean pressure gradient of 28.16mmHg / 14.69mmHg, the aortic valve | | | area by continuity equation is 1.1cm . There has been | | | relatively rapid progression of his aortic valve disease in comparison | | | to the measurements noted on the previous echocardiographic study, | | | done 03/16/17. 5. The mechanical MVR ([address] Donald) is well seated, | | | with normal function. FINDINGS -------- ECG rhythm: Sinus | | | rhythm. Study: A 2-dimensional transthoracic echocardiogram with | | | m-mode, spectral and color flow Doppler was perfomed. Study: This was | | | a technically adequate study. Left Ventricle: Overall left | | | ventricular systolic function is normal with, an EF between 55 - 60 %. | | | Left Ventricle: The left ventricle cavity size is normal. Left | | | Ventricle: No regional wall motion abnormalities. Left Ventricle: | | | Mild septal hypertrophy with septal thickness 12 mm, unchanged from | | | the previous study. Left Ventricle: There are no tissue Doppler | | | measurements, which prevents accurate assessment of diastolic | | | function. Right Ventricle: The right ventricle is normal in size and | | | function. Left Atrium: The left atrium is mild-moderately enlarged, | | | not significantly changed in size compared to the previous study. | | | Right Atrium: The right atrium is normal in size. Aortic Valve: | | | Aortic valve is trileaflet, and moderately thickened, Aortic Valve: | | | moderately calcified, with restricted leaflet separation on 2-D | | | images. Aortic Valve: There is no evidence of aortic regurgitation. | | | Aortic Valve: Moderate aortic stenosis is present, with peak/mean | | | pressure gradient of 28.16mmHg / 14.69mmHg, the aortic valve area by | | | continuity equation is 1.1cm . Aortic Valve: The maximum | | | velocity across the aortic valve is 2.65m/s. On the prior study, the | | | calculated KORTNEY was 1.68 cm , with peak / mean transvalvular | | | gradients measured at 15 / 10 mm Hg, and a peak transvalvular velocity | | | measured at 2.0 m/s, indicating mild progression of his aortic | | | valve disease. Mitral Valve: The mechanical MVR ([address] [facility]) is | | | well seated, with normal function. Mitral Valve: Mitral valve peak/ | | | mean gradient is 16.18mmBd3.63mmHg (these were measured at 15.5 / 5.4 | | | mm Hg, respectively, on the previous study). Tricuspid Valve: The | | | tricuspid valve appears structurally normal. Tricuspid Valve: Mild | | | tricuspid regurgitation present. Tricuspid Valve: There is no | | | evidence of pulmonary hypertension. Tricuspid Valve: The right | | | ventricular systolic pressure (pulmonary artery systolic pressure), as | | | measured by Doppler, is 32.96mmHg. Pulmonic Valve: The pulmonic | | | valve was not well visualized. Pericardium: There is no pericardial | | | effusion. IVC/Hepatic Veins: The inferior vena cava is normal in size | | | and collapses > 50 % with sniff, indicating normal central venous | | | pressures. Aorta: The aortic root is dilated, limited to the sinuses | | | of valsalva measuring up to 38 mm. Mass: No mass visualized | | | Thrombus: No clot visualized Thrombus: No vegetation visualized. | | | Septum: No ASD observed. Septum: No VSD observed. MEASUREMENTS | | | Ao asc: 3.38 cm Ao sinus: 3.[address] junct: | | | 3.14 cm IVC: 2.26 cm LA Diam: 4.84 cm EDV(Teich): 80.34 | | | ml IVSd: 1.24 cm LVIDd: 4.23 cm LVPWd: 1.02 cm LVOT | | | Area: 3.60 cm2 LVOT Diam: 2.14 cm %FS: 24.71 % EF(Teich): | | | 49.33 % ESV(Teich): 40.71 ml LVIDs: 3.19 cm SV(Teich): | | | 39.63 ml RVIDd: 3.20 cm LVEF MOD A4C: 48.90 % SV MOD A4C: | | | 69.24 ml LVEDV MOD A4C: 141.58 ml LVLd A4C: 9.26 cm LVESV MOD | | | A4C: 72.34 ml LVLs A4C: 8.11 cm LAESV(A-L): 93.90 ml | | | LAESV Index (A-L): 44.93 ml/m2 LAAs A2C: 24.18 cm2 LAESV A-L | | | A2C: 90.15 ml LALs A2C: 5.50 cm LAAs A4C: 24.92 cm2 LAESV | | | A-L A4C: 96.81 ml LALs A4C: 5.44 cm RAAs: 12.64 cm2 RAESV | | | A-L: 28.47 ml RAESV MOD: 26.46 ml RALs: 4.76 cm TAPSE: | | | 1.51 cm AV maxP.16 mmHg AV meanP.69 mmHg AV Vmax: | | | 2.65 m/s AV Vmean: 1.81 m/s AV VTI: 60.09 cm KORTNEY Vmax: | | | 1.11 cm2 KORTNEY (VTI): 1.07 cm2 AVAI (Vmax): 0.00 cm2/m2 AVAI | | | (VTI): 0.00 cm2/m2 LVOT maxP.69 mmHg LVOT meanP.41 | | | mmHg LVSI Dopp: 30.90 ml/m2 LVSV Dopp: 64.58 ml LVOT Vmax: | | | 0.82 m/s LVOT Vmean: 0.55 m/s LVOT VTI: 17.89 cm MV A Scott: | | | 1.03 m/s MV Dec [place]: 8.52 m/s2 MV DecT: 234.65 ms MV E | | | Scott: 1.99 m/s MV E/A Ratio: 1.93 MV PHT: 68.05 ms MVA By | | | PHT: 3.23 cm2 MV maxP.16 mmHg MV meanP.63 mmHg MV | | | Vmax: 2.01 m/s MV Vmean: 1.19 m/s MV VTI: 45.81 cm MVA | | | (VTI): 1.40 cm2 RAP: 5 mmHg RVSP: 32.96 mmHg TR maxPG: | | | 27.96 mmHg TR Vmax: 2.64 m/s Bus Company Manager: DBS Authenticated | | | by: SAMY JENNINGS MD Report Date/Time: -- [id number] | | + + + + + | Procedure Note | + + | Thony Jiménez Conversion - 09/26/2018 3:07 PM PDT Patient Name: Jovanny De La Paz of | | : 1950 Performing Physician: SAMY JENNINGS, | | MD INDICATIONS S | | T. DONALD MECHANICAL MV REPLACEMENT, CONCLUSIONS 1. Overall left ventricular | | systolic function is normal with, an EF between 55 - 60 %.2. The right ventricle is | | normal in size and function.3. The left atrium is mild-moderately enlarged.4. There is | | moderate aortic stenosis, with peak/mean pressure gradient of 28.16mmHg / 14.69mmHg, the | | aortic valve area by continuity equation is 1.1cm . There has been relatively | | rapid progression of his aortic valve disease in comparison to the measurements noted on | | the previous echocardiographic study, done 03/16/17.5. The mechanical MVR ([address] | | Donald) is well seated, with normal function. FINDINGS--------ECG rhythm: Sinus | | rhythm.Study: A 2-dimensional transthoracic echocardiogram with m-mode, spectral and | | color flow Doppler was perfomed.Study: This was a technically adequate study.Left | | Ventricle: Overall left ventricular systolic function is normal with, an EF between 55 - | | 60 %.Left Ventricle: The left ventricle cavity size is normal.Left Ventricle: No | | regional wall motion abnormalities.Left Ventricle: Mild septal hypertrophy with septal | | thickness 12 mm, unchanged from the previous study.Left Ventricle: There are no tissue | | Doppler measurements, which prevents accurate assessment of diastolic function.Right | | Ventricle: The right ventricle is normal in size and function.Left Atrium: The left | | atrium is mild-moderately enlarged, not significantly changed in size compared to the | | previous study.Right Atrium: The right atrium is normal in size.Aortic Valve: Aortic | | valve is trileaflet, and moderately thickened,Aortic Valve: moderately calcified, with | | restricted leaflet separation on 2-D images.Aortic Valve: There is no evidence of aortic | | regurgitation.Aortic Valve: Moderate aortic stenosis is present, with peak/mean | | pressure gradient of 28.16mmHg / 14.69mmHg, the aortic valve area by continuity equation | | is 1.1cm .Aortic Valve: The maximum velocity across the aortic valve is 2.65m/s. | | On the prior study, the calculated KORTNEY was 1.68 cm , with peak / mean transvalvular | | gradients measured at 15 / 10 mm Hg, and a peak transvalvular velocity measured at 2.0 | | m/s, indicating mild progression of his aortic valve disease.Mitral Valve: The | | mechanical MVR ([address] [facility]) is well seated, with normal function.Mitral Valve: | | Mitral valve peak/ mean gradient is 16.06gyPb5.63mmHg (these were measured at 15.5 / 5.4 | | mm Hg, respectively, on the previous study).Tricuspid Valve: The tricuspid valve | | appears structurally normal.Tricuspid Valve: Mild tricuspid regurgitation | | present.Tricuspid Valve: There is no evidence of pulmonary hypertension.Tricuspid Valve: | | The right ventricular systolic pressure (pulmonary artery systolic pressure), as | | measured by Doppler, is 32.96mmHg.Pulmonic Valve: The pulmonic valve was not well | | visualized.Pericardium: There is no pericardial effusion.IVC/Hepatic Veins: The inferior | | vena cava is normal in size and collapses > 50 % with sniff, indicating normal central | | venous pressures.Aorta: The aortic root is dilated, limited to the sinuses of valsalva | | measuring up to 38 mm.Mass: No mass visualizedThrombus: No clot visualizedThrombus: No | | vegetation visualized.Septum: No ASD observed.Septum: No VSD observed. | | MEASUREMENTS Ao asc: 3.38 cmAo sinus: 3.[address] junct: 3.14 cmIVC: | | 2.26 cmLA Diam: 4.84 cmEDV(Teich): 80.34 mlIVSd: 1.24 cmLVIDd: 4.23 cmLVPWd: | | 1.02 cmLVOT Area: 3.60 [id number] Diam: 2.14 cm%FS: 24.71 %EF(Teich): 49.33 | | %ESV(Teich): 40.71 mlLVIDs: 3.19 cmSV(Teich): 39.63 mlRVIDd: 3.20 cmLVEF MOD | | A4C: 48.90 %SV MOD A4C: 69.24 mlLVEDV MOD A4C: 141.58 mlLVLd A4C: 9.26 cmLVESV | | MOD A4C: 72.34 mlLVLs A4C: 8.11 cmLAESV(A-L): 93.90 mlLAESV Index (A-L): 44.93 | | ml/m2LAAs A2C: 24.18 [id number] A-L A2C: 90.15 mlLALs A2C: 5.50 cmLAAs A4C: 24.92 | | [id number] A-L A4C: 96.81 mlLALs A4C: 5.44 cmRAAs: 12.64 [id number] A-L: 28.47 | | mlRAESV MOD: 26.46 mlRALs: 4.76 cmTAPSE: 1.51 cmAV maxP.16 mmHgAV meanPG: | | 14.69 mmHgAV Vmax: 2.65 m/Rob Vmean: 1.81 m/Rob VTI: 60.09 cmAVA Vmax: 1.11 | | cm2AVA (VTI): 1.07 yd0IBOP (Vmax): 0.00 cm2/m2AVAI (VTI): 0.00 cm2/m2LVOT maxPG: | | 2.69 mmHgLVOT meanP.41 mmHgLVSI Dopp: 30.90 ml/m2LVSV Dopp: 64.58 mlLVOT | | Vmax: 0.82 m/sLVOT Vmean: 0.55 m/sLVOT VTI: 17.89 cmMV A Scott: 1.03 m/sMV Dec | | [place]: 8.52 m/s2MV DecT: 234.65 msMV E Scott: 1.99 m/sMV E/A Ratio: 1.93MV PHT: | | 68.05 msMVA By PHT: 3.23 cm2MV maxP.16 mmHgMV meanP.63 mmHgMV Vmax: | | 2.01 m/sMV Vmean: 1.19 m/sMV VTI: 45.81 cmMVA (VTI): 1.40 cm2RAP: 5 mmHgRVSP: | | 32.96 mmHgTR maxP.96 mmHgTR Vmax: 2.64 m/s Bus Company Manager: DBSAuthenticated by: | | Marleen WOODARD Date/Time: -- [id number] IMPRESSION: 1. Overall left | | ventricular systolic function is normal with, an EF between 55 - 60 %.2. The right | | ventricle is normal in size and function.3. The left atrium is mild-moderately | | enlarged.4. There is moderate aortic stenosis, with peak/mean pressure gradient of | | 28.16mmHg / 14.69mmHg, the aortic valve area by continuity equation is 1.1cm . | | There has been relatively rapid progression of his aortic valve disease in comparison to | | the measurements noted on the previous echocardiographic study, done 03/16/17.5. The | | mechanical MVR ([address] [facility]) is well seated, with normal function. | |LVIDd: 4.23 cm | |LVPWd: 1.02 cm | |LVOT Area: 3.60 cm2 | |LVOT Diam: 2.14 cm | |%FS: 24.71 % | |EF(Teich): 49.33 % | |ESV(Teich): 40.71 ml | |LVIDs: 3.19 cm | |SV(Teich): 39.63 ml | |RVIDd: 3.20 cm | |LVEF MOD A4C: 48.90 % | |SV MOD A4C: 69.24 ml | |LVEDV MOD A4C: 141.58 ml | |LVLd A4C: 9.26 cm | |LVESV MOD A4C: 72.34 ml | |LVLs A4C: 8.11 cm | |LAESV(A-L): 93.90 ml | |LAESV Index (A-L): 44.93 ml/m2 | |LAAs A2C: 24.18 cm2 | |LAESV A-L A2C: 90.15 ml | |LALs A2C: 5.50 cm | |LAAs A4C: 24.92 cm2 | |LAESV A-L A4C: 96.81 ml | |LALs A4C: 5.44 cm | |RAAs: 12.64 cm2 | |RAESV A-L: 28.47 ml | |RAESV MOD: 26.46 ml | |RALs: 4.76 cm | |TAPSE: 1.51 cm | |AV maxP.16 mmHg | |AV meanP.69 mmHg | |AV Vmax: 2.65 m/s | |AV Vmean: 1.81 m/s | |AV VTI: 60.09 cm | |KORTNEY Vmax: 1.11 cm2 | |KORTNEY (VTI): 1.07 cm2 | |AVAI (Vmax): 0.00 cm2/m2 | |AVAI (VTI): 0.00 cm2/m2 | |LVOT maxP.69 mmHg | |LVOT meanP.41 mmHg | |LVSI Dopp: 30.90 ml/m2 | |LVSV Dopp: 64.58 ml | |LVOT Vmax: 0.82 m/s | |LVOT Vmean: 0.55 m/s | |LVOT VTI: 17.89 cm | |MV A Scott: 1.03 m/s | |MV Dec [place]: 8.52 m/s2 | |MV DecT: 234.65 ms | |MV E Scott: 1.99 m/s | |MV E/A Ratio: 1.93 | |MV PHT: 68.05 ms | |MVA By PHT: 3.23 cm2 | |MV maxP.16 mmHg | |MV meanP.63 mmHg | |MV Vmax: 2.01 m/s | |MV Vmean: 1.19 m/s | |MV VTI: 45.81 cm | |MVA (VTI): 1.40 cm2 | |RAP: 5 mmHg | |RVSP: 32.96 mmHg | |TR maxP.96 mmHg | |TR Vmax: 2.64 m/s | | | |Bus Company Manager: DBS | |Authenticated by: SAMY JENNINGS MD | |Report Date/Time: [id number]:16 | | | |IMPRESSION: | |1. Overall left ventricular systolic function is normal with, an EF between 55 - 60 %. | |2. The right ventricle is normal in size and function. | |3. The left atrium is mild-moderately enlarged. | |4. There is moderate aortic stenosis, with peak/mean pressure gradient of 28.16mmHg / 14.69 mmHg, the aortic valve area by continuity equation is 1.1cm . There has been relativel y rapid progression of his aortic valve disease in comparison to the | |measurements noted on the previous echocardiographic study, done 03/16/17. | |5. The mechanical MVR ([address] Donald) is well seated, with normal function. | + + documented in this encounter Visit Diagnoses Not on filedocumented in this encounter
--- OUTSIDE RECORDS SUMMARY | ~2019-02-03 | XMS | Encounter Summary ---
Demographics + + + | Address | [address] | | | [place] [address] | + + + | Home Phone [...] | [address] | | | | | [facility] | | | | | [address] | | + + + + + Care Team Providers + +------+ + | Care Guest Services Name | Role | Phone | + +------+ + PCP | Unavailable | + +------+ + Encounter Details +--------+ + + + + | Date | Type | Department | Care Team | Description | +--------+ + + + + | 04/09/ | Hospital | [facility] | Chiara Coello, | | | 2011 | Encounter | MED CTR XRAY [address] | [facility] [place] [facility] [address] [place] [address] | | | | | [place] | [address] [place] | | | | | [place] [address] | [address] | | | | | [phone] | | | +--------+ + + + [...] 2019 | Visit | | [address] [facility] | | | | | | [address] [place], [place] | | | | | | [address] | | | | | | | [...] Performed At | + + + | [facility] Diagnostic Imaging Department | [facility] | | [address] [facility] | [facility] | | E C H O C A R D | DIAG IMG | | I O G R A P H Y R E P O R T HEIGHT: 5'10" | | | WEIGHT: 210# PAID INTERNSHIP: KEVYN REFERRING DR: | | | SIMA [...] Transcribed Date/Time: | | | 04/10/2011 10:34 Aerospace Technician: <Electronically Signed | | | by Roxanne Patino MD [facility]> 04/11/11 0641 | | + + + + + | Procedure Note | + + | Tino, Thony Conversion - 03/14/2013 4:51 PM [facility] | | Diagnostic Imaging Department | | [address] [facility] | | | | | | | | E C H O C A R D I O G R A P H Y R E P O R T | | | | | | HEIGHT: 5'10" WEIGHT: 210# PAID INTERNSHIP: KH | | REFERRING DR: SIMA VILLALOBOS [...] | Transcribed Date/Time: 04/10/2011 10:34 | | Aerospace Technician: | | <Electronically Signed by Roxanne Patino MD [facility]> 04/11/11 0641 | + + + +---------+ + + | Performing | Address | City/State/[facility] | Phone Number | | Organization | | | | + +---------+ + + | [place] | | | | | [place] | | | | + +---------+ + + documented in this encounter Visit Diagnoses Not on filedocumented in this encounter
--- OUTSIDE RECORDS SUMMARY | ~2019-02-03 | XMS | Encounter Summary ---
Demographics + + + | Address | [address] | | | [place] [address] | + + + | Home Phone | | + + + | Preferred Language | Unknown | + + + | Marital Status | | + + + | Orthodoxy Affiliation | 1041 | + + + | Race | Unknown | + + + | Ethnic Group | Unknown | + + + Author + + + | Author | [facility] | | | and [place] | + + + | Organization | [facility] [...] | [address] | | | | | [address] [place] | | | | | [address] | | + + + + + Care Team Providers + +------+ + | Care Public Service Administrator Name | Role | Phone | + +------+ + PCP | Unavailable | + +------+ + Encounter Details +--------+ + + + + | Date | Type | Department | Care Team | Description | +--------+ + + + + | 07/25/ | Hospital | [facility] | Johnathan Smith | | | 2002 - | Encounter | MED CTR MED ONC | [address], [id number] [address] | | | | | [address] | [place], [place] | | | 07/28/ | | [place] [address] | [address] | | | 2002 | | [phone] | | | +--------+ + + + [...] | Visit | | [address] [facility] | | | | | | [address] [place] | | | | | | [address] | | | | | | | | +--------+---------+ + + + documented as of this encounter Visit Diagnoses Not on filedocumented in this encounter"
--- OUTSIDE RECORDS SUMMARY | ~2019-02-03 | XMS | Encounter Summary ---
Demographics + + + | Address | [address] | | | [place] [address] | + + + | Home Phone | | + + + | Preferred Language | Unknown | + + + | Marital Status | | + + + | Druze Affiliation | 1041 | + + + | Race | Unknown | + + + | Ethnic Group | Unknown | + + + Author + + + | Author | [facility] | | | and [place] | + + + | Organization | [facility] | | [...] [place] | | | | | [address] | | + + + + + Care Team Providers + +------+ + | Care Data Warehouse Consultant Name | Role | Phone | + +------+ + | Bartolome Frederick DO | PCP | | + +------+ + Reason for Visit + + + | Reason | Comments | + + + | Other | regarding back surgery | + + + | Phone Attempt | FARAZ to Tasha Faith | + + + Encounter Details +--------+ + + + + | Date | Type | Department | Care Team | Description | +--------+ + + + + | 11/11/ | Telephone | [facility] | Bartolome Frederick | Other (regarding | | 2019 | | [facility] | E, DO [address] | back surgery); Phone | | | | MED[facility] [address] | [place] | Damian ([facility] to | | | | [address] [facility], | [address] | May) | | | | [place] [address] | [phone] | | | | | [phone] | | | +--------+ + + + [...] | Shots of liquor 0-1 | | [place]) | | | Standard drinks or | [...] | Visit | | [address] [facility] | | | | | | [address] [facility] | | | | | | [address] | | | | | | | | +--------+---------+ + + + documented as of this encounter Visit Diagnoses Not on filedocumented in this encounter"
--- OUTSIDE RECORDS SUMMARY | ~2019-02-03 | XMS | Encounter Summary ---
Demographics + + + | Address | [address] | | | [place] [address] | + + + | Home Phone | | + + + | Preferred Language | Unknown | + + + | Marital Status | | + + + | Congregation Affiliation | CAT | + + + [...] Team Providers + +------+ + | Care Hospice Fellow Name | Role | Phone | + [...] as of this encounter Discharge Summaries Interface, Sausage Cooker In - 08/29/2005 3:[address] [address] [facility] MEDICAL SUMMARY OF HOSPITALIZATION Med Rec No: [...] He was admitted to the hospital in [place], [place], where he lives with persistently positive [...] made for him to be transferred to [facility] for further treatment. HOSPITAL COURSE: Mr. De La Paz was admitted to the medicine service at [facility]. He was continued on his medications, which [...] primary care physician in one week in [place], [place]. In addition, he is to follow up with the cardiothoracic surgery service as needed. Floresita Alamo M.D. Khai Daly M.D. RS/[id number] cc: [id number] signed by Mariel Martinez In at 08/29/2005 3:09 AM [facility] umented in this encounter Plan of Treatment +--------+---------+ + + + | Date | Type | Specialty | Care Team | Description | +--------+---------+ + + + | 04/30/ | Office | Neurological Surgery | Michael Durbin MD | | | 2020 | Visit | | [address] | | | | | | [facility] [address] | | | | | | [place] [address] | | | | | | [phone] | | | | | | | | +--------+---------+ + + + documented as of this encounter Visit Diagnoses Not on filedocumented in this encounter"
--- OUTSIDE RECORDS SUMMARY | ~2019-02-03 | XMS | Encounter Summary ---
Demographics + + + | Address | [address] | | | [place] [address] | + + + | Home Phone | | + + + | Preferred Language | Unknown | + + + | Marital Status | | + + + | Temple Affiliation | 1041 | + + + | Race | Unknown | + + + | Ethnic Group | Unknown | + + + Author + + + | Author | [facility] | | | and [place] | + + + | Organization | [facility] | | | [...] [address] | | | | | [facility] [place] | | | | | [address] | | + + + + + Care Team Providers + +------+ + | Care Dirt Bike Racer Name | Role | Phone | + +------+ + PCP | Unavailable | + +------+ + Encounter Details +--------+ + + + + | Date | Type | Department | Care Team | Description | +--------+ + + + + | 03/30/ | Hospital | [facility] | | | | 2008 | Encounter | MED CTR LABORATORY | | | | | | [address] | | | | | | [place] | | | | | | [address] | | | | | | [phone] | | | +--------+ + + + [...] 2020 | Visit | | [address] [facility] | | | | | | [address] [place] | | | | | | [address] | | | | | | | | +--------+---------+ + + + documented as of this encounter Visit Diagnoses Not on filedocumented in this encounter"
--- OUTSIDE RECORDS SUMMARY | ~2019-02-03 | XMS | Encounter Summary ---
Demographics + + + | Address | [address] | | | [place] [address] | + + + | Home Phone [...] [place] | | | | | [address] | | + + + + + Care Team Providers + +------+ + | Care Sales And Service Associate Name | Role | Phone | + [...] | | GATO CALABRESE | [address] [facility] [facility], | | | | | [place], [place] | [place] [address] | | | | | [address] | [phone] | | | | | [phone] | | | +--------+ + + + [...] 2020 | Visit | | [address] [facility] | | | | | | [address] [place] | | | | | | [address] | | | | | | (Fax) [...] TR Vmax: | | | 2.55 m/s Watershed Engineer: Authenticated by: Wesley Jennings Report | | [...] cmLVPWd: 0.90 cmLVOT Area: | | 3.89 [id number] Diam: 2.22 cm%FS: 27.99 %EF(Teich): 54.66 %ESV(Teich): [...] | | (A-L): 43.82 ml/m2LAAs A2C: 23.86 vq6HCOWG A-L A2C: 82.99 mlLALs A2C: 5.82 | | cmLAAs A4C: 24.47 up3BWEVI A-L A4C: 92.56 mlLALs A4C: 5.49 cmRAAs: 16.50 | | ug4HHTAK A-L: 40.77 mlRAESV MOD: 36.57 mlRALs: 5.67 cmTAPSE: 2.08 cmAV maxPG: | | 15.26 mmHgAV meanP.55 mmHgAV Vmax: 1.95 m/Rob Vmean: 1.47 m/Rob VTI: 47.76 | | cmAVA Vmax: 1.50 cm2AVA (VTI): 1.67 gr4UQGG Vmax: 0.00 cm2/m2AVAI (VTI): 0.00 | | [...] 1.03 m/sMV VTI: 49.82 cmMVA (VTI): 1.60 hq5Pdgwer e': 0.04 | | m/sSeptal E/e': 35.79Lateral e': 0.05 m/sLateral E/e': 29.82RAP: 5 mmHgRVSP: | | 31.06 mmHgTR maxP.06 mmHgTR Vmax: 2.55 m/s Watershed Engineer:Authenticated by: | | Wesley Ramey Date/Time: 03-16-2017 [...] |TR Vmax: 2.55 m/s | | | |Watershed Engineer: | |Authenticated by: Wesley Jennings | |Report [...]
--- OUTSIDE RECORDS SUMMARY | ~2019-02-03 | XMS | Encounter Summary ---
Demographics + + + | Address | [address] | | | [place] [address] | + + + | Home Phone | | + + + | Preferred Language | Unknown | + + + | Marital Status | | + + + | Quaker Affiliation | CAT | + + + | Race | White | + + + | Ethnic Group | Not or | + + + Author + + + | Author | [facility] | + + + | Organization | [facility] | + + + | Address [...] Team Providers + +------+ + | Care Beer Merchant Name | Role | Phone | + +------+ + PCP | Unavailable | + +------+ + Encounter Details +--------+ + + + + | Date | Type | Department | Care Team | Description | +--------+ + + + + | 04/11/ | Abstract | [facility] | Bj Bragg, | | | 2019 | | [address] | [address] | | | | | Christ[place] Mailcode: | [place], [place] | | | | | [place] [facility] | [address] | | | | | and Healing, | [phone] | | | | | Building [address] | | | | | | [place], [place] | | | | | | [address] | | | | | | [phone] | | | +--------+ + + + [...] Ave | | | | | | [facility] [address] | | | | | | [place] [address] | | | | | | [phone] | | | | | | | | +--------+---------+ + + + documented as of this encounter Visit Diagnoses Not on filedocumented in this encounter"
--- OUTSIDE RECORDS SUMMARY | ~2019-02-03 | XMS | Encounter Summary ---
Demographics + + + | Address | [address] | | | [place] [address] | + + + | Home Phone | | + + + | Preferred Language | Unknown | + + + | Marital Status | | + + + | Rastafari Affiliation | 1041 | + + + | Race | Unknown | + + + | Ethnic Group | Unknown | + + + Author + + + | Author | [facility] | | | and [place] | + + + | Organization | [facility] | | [...] [place] | | | | | [address] | | + + + + + Care Team Providers + +------+ + | Care Trade Facilitator Name | Role | Phone | + +------+ + | Bartolome Frederick DO | PCP | | + +------+ + Reason for Visit + + + | Reason | Comments | + + + | Medication Refill | | + + + Encounter Details +--------+--------+ + + + | Date | Type | Department | Care Team | Description | +--------+--------+ + + + | 12/07/ | Refill | [facility] | Bartolome Frederick | Medication Refill | | 2017 | | [facility] | E, DO [address] | | | | | MEDICAL CLIN[facility] [address] | [place], [place] | | | | | [address] [place], | [address] | | | | | [place] [address] | [phone] | | | | | [phone] | | | +--------+--------+ + + + [...] 2020 | Visit | | [address] [facility] | | | | | | [address] [place] | | | | | | [address] | | | | | | | | +--------+---------+ + + + documented as of this encounter Visit Diagnoses Not on filedocumented in this encounter
--- OUTSIDE RECORDS SUMMARY | ~2019-02-03 | XMS | Encounter Summary ---
Demographics + + + | Address | [address] | | | [place] [address] | + + + | Home Phone [...] + | Author | [facility] | | | and [place] | + + + | Organization | [facility] | | | [...] [place] | | | | | [address] | | + + + + + Care Team Providers + +------+ + | Care Manager Agricultural Name | Role | Phone | + +------+ + | Bartolome Frederick DO | PCP | | + +------+ + Encounter Details +--------+ + + + + | Date | Type | Department | Care Team | Description | +--------+ + + + + | 08/21/ | Orders Only | [facility] | Ismael Young MD | | | 2017 | | NEPHROLOGY [place] | [address] [place] | | | | | [address] [place] | [address] [place], [place] | | | | | [address] [place], [place] | [address] | | | | | [address] | | | | | | [phone] | | | +--------+ + + + [...] 2020 | Visit | | [facility] | | | | | | [address] [place] | | | | | | [address] | | | | | | | [...]
--- OUTSIDE RECORDS SUMMARY | ~2019-02-03 | XMS | Encounter Summary ---
Demographics + + + | Address | [address] | | | [place] [address] | + + + | Home Phone [...] Team Providers + +------+ + | Care Mounter Brass Wind Instruments Name | Role | Phone | + [...] | | | | [address] | [place] [address] | | | | | [place], [place] | [phone] | | | | | [address] | | | | | | [phone] | | | +--------+ + + + [...] | 2019 | Visit | | [address] [facility] | | | | | | [facility] [address] | | | | | | [place] [address] | | | | | | [phone] | | | | | | | | +--------+---------+ + + + documented as of this encounter Visit Diagnoses Not on filedocumented in this encounter"
--- OUTSIDE RECORDS SUMMARY | ~2019-02-03 | XMS | Encounter Summary ---
Demographics + + + | Address | [address] | | | [place] [address] | + + + | Home Phone | | + + + | Preferred Language | Unknown | + + + | Marital Status | | + + + | Tenriism Affiliation | 1041 | + + + | Race | Unknown | + + + | Ethnic Group | Unknown | + + + Author + + + | Author | [facility] | | | and [place] | + + + | Organization | [facility] | | | and [place] | + + + | Address | Unknown | + + + | Phone | Unavailable | + + + Support + + + + + | Name | Relationship | Address | Phone | + + + + + | Ai De La Paz | ECON | [address] | | | | | [address] | | | | | [address] | | + + + + + Care Team Providers + +------+ + | Care Hairspring Vibrator Name | Role | Phone | + +------+ + PCP | Unavailable | + +------+ + Encounter Details +--------+ + + + + | Date | Type | Department | Care Team | Description | +--------+ + + + + | 10/30/ | [facility] | [facility] | Khai Ackerman | | | 2001 | Encounter | MED CTR XRAY [address] | [address] | | | | | [address] | | | | | | [place] [address] | | | | | | [phone] | | | +--------+ + + + [...] 2019 | Visit | | [address] [facility] | | | | | | [address] [place], [place] | | | | | | [address] | | | | | | | | +--------+---------+ + + + documented as of this encounter Visit Diagnoses Not on filedocumented in this encounter"
--- OUTSIDE RECORDS SUMMARY | ~2019-02-03 | XMS | Encounter Summary ---
Demographics + + + | Address | [address] | | | [place] [address] | + + + | Home Phone | | + + + | Preferred Language | Unknown | + + + | Marital Status | | + + + | Hindu Affiliation | CAT | + + + [...] Team Providers + +------+ + | Care Mechanical Engineering Teacher Name | Role | Phone | + +------+ + | Bartolome Frederick DO | PCP | | + +------+ + Encounter Details +--------+ + + + + | Date | Type | Department | Care Team | Description | +--------+ + + + + | 09/17/ | Document-Sc | [facility] | Michael Durbin MD | | | 2019 | anned | Neurosurgery at [address] | [address] | | | | | [address] | [address] | | | | | [address] | [place] [address] | | | | | [place], [place] | [phone] | | | | | [address] | | | | | | [phone] | | | +--------+ + + + [...] | 2020 | Visit | | [address] [facility] | | | | | | [place] [address] | | | | | | [place] [address] | | | | | | [phone] | | | | | | | [...]
--- OUTSIDE RECORDS SUMMARY | ~2019-02-03 | XMS | Encounter Summary ---
Demographics + + + | Address | [address] | | | [place] [address] | + + + | Home Phone | | + + + | Preferred Language | Unknown | + + + | Marital Status | | + + + | Church Affiliation | 1041 | + + + | Race | Unknown | + + + | Ethnic Group | Unknown | + + + Author + + + | Author | [facility] | | | and [place] | + + + | Organization | [facility] | | [...] [place] | | | | | [address] | | + + + + + Care Team Providers + +------+ + | Care Fine Grader Name | Role | Phone | + [...] | | | | e disc | [place], | [place] | | | | | disease), | [place] | [address] Phone: | | | | | lumbar | [address] | [phone] | | | | | | Phone: | Fax: | | | | | | [phone] | [phone] | | | | | | Fax: | | | | | | | [phone] | | +--------+--------+ + + + + Encounter Details +--------+---------+ + + + | Date | Type | Department | Care Team | Description | +--------+---------+ + + + | 09/04/ | Office | [facility] [place] | Reji Mederos | Chronic bilateral | | 2018 | Visit | PHYSIATRY [address] | [address] | low back pain with | | | | [place], | [place], [place] | bilateral sciatica; | | | | [place] [address] | [address] | Spinal stenosis of | | | | [phone] | | lumbar region with | | [...] 09/04/2017 1:00 PM PDT Reji Mederos MD [address] [place] [address], [address] [place], [place] [address] FAX: PHYSICAL MEDICINE AND REHABILITATION H&P CHIEF [...] has no apparent deficits with short or buttermaker helper memory. He has appropriate fund of knowledge [...] 2019 | Visit | | [address] [facility] | | | | | | [address] [place], [place] | | | | | | [address] | | | | | | | [...]
--- OUTSIDE RECORDS SUMMARY | ~2019-02-03 | XMS | Encounter Summary ---
Demographics + + + | Address | [address] | | | [place] [address] | + + + | Home Phone | | + + + | Preferred Language | Unknown | + + + | Marital Status | | + + + | Gnosticist Affiliation | 1041 | + + + | Race | Unknown | + + + | Ethnic Group | Unknown | + + + Author + + + | Author | [facility] | | | and [place] | + + + | Organization | [facility] | | | and [place] | + + + | Address | Unknown | + + + | Phone | Unavailable | + + + Support + + + + + | Name | Relationship | Address | Phone | + + + + + | Ai De La Paz | ECON | [address] | | | | | [address] [address] | | | | | [address] | | + + + + + Care Team Providers + +------+ + | Care Turkey Pinner Name | Role | Phone | + +------+ + PCP | Unavailable | + +------+ + Encounter Details +--------+ + + + + | Date | Type | Department | Care Team | Description | +--------+ + + + + | 07/25/ | Hospital | [facility] | Johnathan Smith | | | 2002 - | Encounter | MED CTR MED ONC | [address], [address] | | | | | [address] | [place], [place] | | | 07/28/ | | [place] [address] | [address] | | | 2002 | | [phone] | | | +--------+ + + + [...] 2019 | Visit | | [address] [facility] | | | | | | [address] [place] | | | | | | [address] | | | | | | | | +--------+---------+ + + + documented as of this encounter Visit Diagnoses Not on filedocumented in this encounter"
--- OUTSIDE RECORDS SUMMARY | ~2019-02-03 | XMS | Encounter Summary ---
Demographics + + + | Address | [address] | | | [place] [address] | + + + | Home Phone | | + + + | Preferred Language | Unknown | + + + | Marital Status | | + + + | Baptist Affiliation | CAT | + + + [...] Team Providers + +------+ + | Care Paper Coater Name | Role | Phone | + +------+ + | Bartolome Frederick DO | PCP | | + +------+ + Encounter Details +--------+ + + + + | Date | Type | Department | Care Team | Description | +--------+ + + + + | 01/30/ | Hospital | Diagnostic Imaging | Jeimy Mera, | Arrived | | 2019 | Encounter | at [facility] | PA-C [address] | | | | | Healthcare [address] | [address] | | | | | [address] [place], | [place] [address] | | | | | [place] [address] | [phone] | | | | | [phone] | | | +--------+ + + + [...] | | 0 | | | | Wbayxbk-Cryxbgzht-Hq | daily. 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 | | | Redj-zz-eshmvgdx spondylotic changes are again seen in the [...] identified.Vertebral | | body heights are maintained. Quba-qp-pctcrnte spondylotic changes are again seen in | [...] identified. | |Vertebral body heights are maintained. Bqlj-dy-nzvemlmq spondylotic changes are again seen in the [...] RADIOLOGY | [address] | [place] [address] | [phone] | | VOICE RECOGNITION | | | | + + + + + documented in this encounter Visit Diagnoses + + | Diagnosis | + + | S/P lumbar fusion Arthrodesis status | + + documented in this encounter"
--- OUTSIDE RECORDS SUMMARY | ~2019-02-03 | XMS | Encounter Summary ---
Demographics + + + | Address | [address] | | | [place] [address] | + + + | Home Phone | | + + + | Preferred Language | Unknown | + + + | Marital Status | | + + + | Shinto Affiliation | CAT | + + + [...] Team Providers + +------+ + | Care Chicken Catcher Name | Role | Phone | + +------+ + | OtonielBartolome DO | PCP | | + +------+ + Encounter Details +--------+--------+ + + + | Date | Type | Department | Care Team | Description | +--------+--------+ + + + | 09/13/ | Travel | | | | | [...] Description | +--------+---------+ + + + | 03/26/ | Office | Neurological Surgery | Michael Durbin MD | | | 2019 | Visit | | [address] [facility] | | | | | | [address] | | | | | | [place] [address] | | | | | | [phone] | | | | | | | | +--------+---------+ + + + documented as of this encounter Visit Diagnoses Not on filedocumented in this encounter"
--- OUTSIDE RECORDS SUMMARY | ~2019-02-03 | XMS | Clinical Summary ---
Demographics + + + | Address | [address] | | | [place] [address] | + + + | Home Phone | | + + + | Preferred Language | Unknown | + + + | Marital Status | | + + + | Lutheran Affiliation | 1041 | + + + | Race | Unknown | + + + | Ethnic Group | Unknown | + + + Author + + + | Author | [facility] | | | and [place] | + + + | Organization | [facility] | | | [...] [place] | | | | | [address] | | + + + + + Care Team Providers + +------+ + | Care Emergency Crew Supervisor Name | Role | Phone | [...] Shots of liquor 0-1 | | [place]) | | | Standard drinks or | [...] 2019 | Visit | | [address] [facility] | | | | | | [address] [facility] | | | | | | [address] | | | | | | | [...] +---------+--------+ | [employer] | [place] | [id number] | 02/05/19 | | | Indemn | | | ZAYAS | | 17-Pre | | | ity | | | LIFE | | sent | | | | | | MDCR | | | | | | | | SUPPL | | | | | | + +--------+ +--------+ +---------+--------+ | MEDICARE | MEDICA | [id number] | 02/05/19 | [phone] | | Medica | | | RE | | 17-Pre | 5 | | re | | | PART A | | sent | | | | | | AND B | | | | | | + +--------+ +--------+ +---------+--------+ | [employer] | [employer] | [id number] | | | | Indemn | | | ZAYAS | | 014-Pr | | | ity | | | LIFE | | esent | | | | | | MDCR | | | | | | | | SUPPL | | | | | | + +--------+ +--------+ +---------+--------+ | MEDICARE | MEDICA | [id number] | 02/05/19 | [phone] | | Medica | | | RE | | 17-Pre | 5 | | re | | | PART A | | sent | | | | | | AND B | | | | | | + +--------+ +--------+ +---------+--------+ | MEDICARE | MEDICA | [id number] | 02/05/19 | [phone] | | Medica | | | RE | | 17-Pre | 5 | | re | | | PART A | | sent | | | | | | AND B | | | | | | + +--------+ +--------+ +---------+--------+ | [employer] | MAN[place]AT | [id number] | 11/16/ | | | Indemn | [...] | | al/Fam | | 1951 | [phone] | [place], [place] | | | michael | | | 6 (Home) | [address] | + +--------+ +--------+ + + | Lupillo De La Paz | Person | Self | [birth year] | [address] | | | al/Fam | | 1951 | [phone] | [place], [place] | | | michael | | | 6 (Home) | [address] | | | | | | [phone] | | | | | | | 0 (Work) | | + +--------+ +--------+ + + | Lupillo De La Paz | Person | Self | [birth year] | [address] | | | al/Fam | | 195 | [phone] | [place] | | | [place]ichael | | | 6 (Home) | [address] | | | | | | [phone] | | | | | | | 0 (Work) | | + +--------+ +--------+ + + Advance Directives + + + + + | Type | Date Recorded | Patient | Explanation | | | | Direct Care Worker | | + + + + + | Power of | | | | | Registration Coordinator | | | | + + + + + | Advance | | | | | Directive | | | | + + + + +
--- OUTSIDE RECORDS SUMMARY | ~2019-02-03 | XMS | Encounter Summary ---
Demographics + + + | Address | [address] | | | [place] [address] | + + + | Home Phone | | + + + | Preferred Language | Unknown | + + + | Marital Status | | + + + | Adventist Affiliation | 1041 | + + + | Race | Unknown | + + + | Ethnic Group | Unknown | + + + Author + + + | Author | [facility] | | | and [place] | + + + | Organization | [facility] | | | [...] [place] | | | | | [address] | | + + + + + Care Team Providers + +------+ + | Care Dye Mixer Name | Role | Phone | + [...] + + | 10/08/ | Documentati | [facility] | Liriano, | Results (10/02/18) | | 2019 | on | NEPHROLOGY [place] | [facility] | | | | | [address] | [employer] | | | | | [address] [facility] [place] [place] | | | | | | [address] | | | | | | [phone] | | | +--------+ + + + [...] | Shots of liquor 0-1 | | [place]) | | | Standard drinks or | [...] 2019 | Visit | | [address] [facility] | | | | | | [address] [facility] | | | | | | [address] | | | | | | | [...]
--- OUTSIDE RECORDS SUMMARY | ~2019-02-03 | XMS | Encounter Summary ---
Demographics + + + | Address | [address] | | | [place] [address] | + + + | Home Phone | | + + + | Preferred Language | Unknown | + + + | Marital Status | | + + + | Sabianist Affiliation | 1041 | + + + | Race | Unknown | + + + | Ethnic Group | Unknown | + + + Author + + + | Author | [facility] | | | and [place] | + + + | Organization | [facility] | | | [...] [place] | | | | | [address] | | + + + + + Care Team Providers + +------+ + | Care Mission Analyst Name | Role | Phone | [...] | | | MED[facility] [address] | [place], [place] | | | | | [address] [place], | [address] | | | | | [place] [address] | [phone] | | | | | [phone] | | | +--------+ + + + [...] | Shots of liquor 0-1 | | [place]) | | | Standard drinks or | [...] 2020 | Visit | | [address] [facility] | | | | | | [address] [place] | | | | | | [address] | | | | | | | | +--------+---------+ + + + documented as of this encounter Visit Diagnoses Not on filedocumented in this encounter"
--- OUTSIDE RECORDS SUMMARY | ~2019-02-03 | XMS | Encounter Summary ---
Demographics + + + | Address | [address] | | | [place] [address] | + + + | Home Phone | | + + + | Preferred Language | Unknown | + + + | Marital Status | | + + + | Yazidi Affiliation | CAT | + + + | Race | White | + + + | Ethnic Group | Not or | + + + Author + + + | Author | [facility] | + + + | Organization | [facility] | + + + | [...] Team Providers + +------+ + | Care Cigarette Filter Inspector Name | Role | Phone | [...] | | 2002 | | [address] [facility] | [phone] | | | | Transcribed | [address] | | | | | | [place], [place] | | | | | | [address] | | | +--------+ + + + [...] 12:00 AM PDTAssociated Order(s): TRANSTHORACIC ECHOCARDIOGRAM, ADULT [facility] DATE: 07/08/02 [place] MED REC NO: [id number] NAME: BASILIA CASTANEDA Jorge ECHOCARDIOGRAPHY REPORT BIRTHDATE: [...] | 2020 | Visit | | [address] [facility] [address] | | | | | | [place] [address] | | | | | | [place] [address] | | | | | | [phone] | | | | | | | [...] | Other, Faculty - 07/08/2002 12:00 AM [facility] DATE: | | 07/08/02 [place] MED REC NO: [id number] NAME: BASILIA CASTANEDA | | ECHOCARDIOGRAPHY REPORT [...]
--- OUTSIDE RECORDS SUMMARY | ~2019-02-03 | XMS | Encounter Summary ---
Demographics + + + | Address | [address] | | | [place] [address] | + + + | Home Phone | | + + + | Preferred Language | Unknown | + + + | Marital Status | | + + + | Yarsani Affiliation | 1041 | + + + | Race | Unknown | + + + | Ethnic Group | Unknown | + + + Author + + + | Author | [facility] | | | and [place] | + + + | Organization | [facility] | | [...] [place] | | | | | [address] | | + + + + + Care Team Providers + +------+ + | Care Local Company Flatbed Truck Driver Name | Role | Phone | [...] Medication Question | | 2018 | | [facility] | E, DO [address] | | | | | MEDICAL CLIN[facility] [address] | [place], [place] | | | | | [address] [place], | [address] | | | | | [place] [address] | [phone] | | | | | [phone] | | | +--------+ + + + [...] 2020 | Visit | | [address] [facility] | | | | | | [address] [place] | | | | | | [address] | | | | | | | | +--------+---------+ + + + documented as of this encounter Visit Diagnoses Not on filedocumented in this encounter
--- OUTSIDE RECORDS SUMMARY | ~2019-02-03 | XMS | Encounter Summary ---
Demographics + + + | Address | [address] | | | [place] [address] | + + + | Home Phone | | + + + | Preferred Language | Unknown | + + + | Marital Status | | + + + | Restorationism Affiliation | 1041 | + + + | Race | Unknown | + + + | Ethnic Group | Unknown | + + + Author + + + | Author | [facility] | | | and [place] | + + + | Organization | [facility] | | [...] [place] | | | | | [address] | | + + + + + Care Team Providers + +------+ + | Care Case Therapist Name | Role | Phone | + +------+ + | Bartolome Frederick DO | PCP | | + +------+ + Encounter Details +--------+ + + + + | Date | Type | Department | Care Team | Description | +--------+ + + + + | 03/16/ | Orders Only | [facility] | Brooke Nguyễn | | | 2018 | | CARDIOLOGY [place] | [address] | | | | | [address] | [address] | | | | | [place], [place] | [place] [address] | | | | | [address] | [phone] | | | | | [phone] | | | +--------+ + + + [...] | | | | | | [address] [place], [place] | | | | | | [address] | | | | | | | [...]
--- OUTSIDE RECORDS SUMMARY | ~2019-02-03 | XMS | Encounter Summary ---
Demographics + + + | Address | [address] | | | [place] [address] | + + + | Home Phone [...] [place] | | | | | [address] | | + + + + + Care Team Providers + +------+ + | Care Hydraulic Governor Assembler Name | Role | Phone | + +------+ + | Bartolome Frederick DO | PCP | | + +------+ + Encounter Details +--------+ + + + + | Date | Type | Department | Care Team | Description | +--------+ + + + + | 08/09/ | Orders Only | [facility] | Conversion | | | 2017 | | NEPHROLOGY [place] | Transaction, | | | | | [address] | Provider Unknown | | | | | [address] [place], [place] | | | | | | [address] | (Fax) | | | | | [phone] | | | +--------+ + + + [...] [place] | | | | | | [address] | | | | | | (Fax) [...] | | | LAB | | | [facility] | | | | | + + [...]
--- OUTSIDE RECORDS SUMMARY | ~2019-02-03 | XMS | Encounter Summary ---
Demographics + + + | Address | [address] | | | [place] [address] | + + + | Home Phone | | + + + | Preferred Language | Unknown | + + + | Marital Status | | + + + | Latter-Day Affiliation | 1041 | + + + [...] [place] | | | | | [address] | | + + + + + Care Team Providers + +------+ + | Care Model Technician Name | Role | Phone | [...] | +--------+ + + + + | 09/11/ | Telephone | [facility] | Reji Mederos | Medication Question | | 2017 | | PHYSIATRY [address] | [address] | | | | | [place], | [place], [place] | | | | | [place] [address] | [address] | | | | | [phone] | | | +--------+ + + + [...] 2019 | Visit | | [address] [facility] | | | | | | [facility] | | | | | | [address] | | | | | | | | +--------+---------+ + + + + +------+--------+ + + | Name | Type | Priori | Associated Diagnoses | Order Schedule | | | | ty | | | + +------+--------+ + + | Sedimentation Rate | Lab | Routin | Polymyalgia | 1 Occurrences | | | | e | rheumatica (HCC) | starting 09/18/2017 | | | | | | until 09/18/2018 | + +------+--------+ + + | C-Reactive Protein | Lab | Routin | Polymyalgia | 1 Occurrences | | | | e | rheumatica (HCC) | starting 09/18/2017 | | | | | | until 09/18/2018 | + +------+--------+ + + documented as of this encounter Visit Diagnoses + + | Diagnosis | + + | Polymyalgia rheumatica (HCC) - Primary Polymyalgia rheumatica | + + documented in this encounter
--- OUTSIDE RECORDS SUMMARY | ~2019-02-03 | XMS | Encounter Summary ---
Demographics + + + | Address | [address] | | | [place] [address] | + + + | Home Phone [...] [place] | | | | | [address] | | + + + + + Care Team Providers + +------+ + | Care Curriculum Assistant Name | Role | Phone | + +------+ + | Bartolome Frederick DO | PCP | | + +------+ + Reason for Visit +---------+ + | Reason | Comments | +---------+ + | Results | | +---------+ + Encounter Details +--------+ + + + + | Date | Type | Department | Care Team | Description | +--------+ + + + + | 11/21/ | Telephone | [place] [facility] | Swetha Contreras, | Results | | 2018 | | [facility] | CONTRACT GRAPHIC DESIGNER [address] | | | | | MEDICAL CLINIC [address] | [place] [address] | | | | | [address] [place], | [phone] | | | | | [place] [address] | | | | | | [phone] | | | +--------+ + + + [...] 2019 | Visit | | [address] [facility] | | | | | | [address] [place] | | | | | | [address] | | | | | | | | +--------+---------+ + + + documented as of this encounter Visit Diagnoses Not on filedocumented in this encounter
--- OUTSIDE RECORDS SUMMARY | ~2019-02-03 | XMS | Encounter Summary ---
Demographics + + + | Address | [address] | | | [place] [address] | + + + | Home Phone | | + + + | Preferred Language | Unknown | + + + | Marital Status | | + + + | Yarsani Affiliation | CAT | + + + [...] as of this encounter Progress Notes Interface, Biological Engineer In - 08/25/2005 1:07 AM [facility] INPATIENT CONSULTATION REPORT [id number], [place] [address] or REFERRED FROM AND FAXED TO: Galo Kulkarni M.D. Division of Cardiology Fax to 8DVA REFERRED TO: Aminata Barrera M.D. PATIENT: Lupillo De La Paz MR#: [id number] DATE OF CONSULTATION: July 03, 2002 CHIEF COMPLAINT: Fevers and aching muscles and joints. HISTORY OF PRESENT ILLNESS: The patient is a 52-year-old gentleman from [facility], referred from a hospital in [place], [place] with positive blood cultures for Enterococcus faecalis. The patient's illness began approximately three months ago when he noted the onset of migrating arthralgias and generalized myalgias. He was also noted to be febrile at that time and on several occasions throughout the course of his illness. The patient was eventually referred to a test designer by his primary care provider, who undertook [...] scan. The patient is now here at [facility] for further antimicrobial therapy and for consideration of possible mitral valve replacement. REVIEW OF SYSTEMS: Unremarkable except as noted in the HPI. No other systems positive. PAST MEDICAL HISTORY: 1. Appendectomy in 1964. 2. Bilateral knee replacements in 1998 and 1999. 3. Migraine headaches. FAMILY HISTORY: Noncontributory. SOCIAL HISTORY: The patient is from [facility], and he is . He has been employed by the [employer] for most of his life, and he [...] minor determinate mixture or MDM) on the [facility] campus. This privative reagent is an [...] at this time. Aminata Barrera M.D. [id number] signed by Michelle, Biological Engineer In at 08/25/2005 1:[address] [facility] umented in this encounter Plan of Treatment +--------+---------+ + + + | Date | Type | Specialty | Care Team | Description | +--------+---------+ + + + | 04/30/ | Office | Neurological Surgery | Michael Durbin MD | | | 2020 | Visit | | [address] | | | | | | [facility] [address] | | | | | | [place] [address] | | | | | | [phone] | | | | | | | | +--------+---------+ + + + documented as of this encounter Visit Diagnoses Not on filedocumented in this encounter"
--- OUTSIDE RECORDS SUMMARY | ~2019-02-03 | XMS | Encounter Summary ---
Demographics + + + | Address | [address] | | | [place] [address] | + + + | Home Phone | | + + + | Preferred Language | Unknown | + + + | Marital Status | | + + + | Yazidism Affiliation | CAT | + + + | Race | White | + + + | Ethnic Group | Not or | + + + Author + + + | Author | [facility] | + + + | Organization | [facility] | + + + | Address | [...] Team Providers + +------+ + | Care Crusher Loader Operator Name | Role | Phone | [...] [address] | | | | | | [place], [place] | | | | | | [address] | | | | | | [phone] | | | +--------+ + + + [...] [address] | | | | | | [place] [address] | | | | | | [phone] | | | | | | | [...] + + + + | [facility] | [facility] | [place] [address] | | | PATHOLOGY | [address] | | | + + + + + | [facility] DEPARTMENT OF | [facility] | [place] [address] | | | PATHOLOGY | [address] [...] + + + | [facility] | [address] | [place] [address] | | | LAB-MICRO | | | [...] | + + + + + | [facility] DEPARTMENT | [address] [place] [address] | [place] [address] | | | PATHOLOGY | [address] | | | + + + + + | [facility] DEPARTMENT OF | [address] [place] [address] | [place] [address] | | | PATHOLOGY | [address] [...] | + + + + + | [facility] DEPARTMENT OF | [address] | [place] [address] | | | PATHOLOGY | [address] | | | + + + + + | [facility] DEPARTMENT OF | [address] | [place] [address] | | | PATHOLOGY | [address] [...] + + + + | [facility] | [address] | [place] [address] | | | PATHOLOGY | [address] | | | + + + + + | [facility] | [address] [place] [address] | [place] [address] | | | PATHOLOGY | [address] [...] | + + + + + | [facility] DEPARTMENT OF | [address] | [place] [address] | | | PATHOLOGY | [address] | | | + + + + + | [facility] DEPARTMENT OF | [address] | [place] [address] | | | PATHOLOGY | [address] [...] + + + + | PRODUCT | [id number] | | [facility] | | | UNIT [...] + | [facility] DEPARTMENT OF | [address] | [place] [address] | | | PATHOLOGY | [address] | | | + + + + + | [facility] DE[facility]MENT OF | [address] | [place] [address] | | | PATHOLOGY | [address] [...] + + + + | PRODUCT | [id number] | | [facility] | | | UNIT [...] | + + + + + | [facility] DEPARTMENT OF | [facility] | [place] [address] | | | PATHOLOGY | [address] | | | + + + + + | [facility] DEPARTMENT OF | [facility] | [place] [address] | | | PATHOLOGY | [address] [...] | + + + + + | [facility] DEPARTMENT OF | [address] | [place] [address] | | | PATHOLOGY | [address] | | | + + + + + | [facility] DEPARTMENT OF | [address] | [place] [address] | | | PATHOLOGY | [address] [...] + + + + | PRODUCT | [id number] | | [facility] | | | UNIT [...] + + + + | [facility] | [address] | [place] [address] | | | PATHOLOGY | [address] | | | + + + + + | [facility] | [address] | [place] [address] | | | PATHOLOGY | [address] [...] + + + + | PRODUCT | [id number] | | [facility] | | | UNIT [...] + + + + | [facility] | [address] | [place] [address] | | | PATHOLOGY | [address] | | | + + + + + | [facility] | [address] | [place] [address] | | | PATHOLOGY | [address] [...] + + + + | PRODUCT | [id number] | | [facility] | | | UNIT [...] | + + + + + | [facility] DEPARTMENT OF | [address] | [place] [address] | | | PATHOLOGY | [address] | | | + + + + + | [facility] DEPARTMENT OF | [address] | [place] [address] | | | PATHOLOGY | [address] [...] + + + + | PRODUCT | [id number] | | [facility] | | | UNIT [...] | + + + + + | [facility] DEPARTMENT OF | [address] | [place] [address] | | | PATHOLOGY | [address] | | | + + + + + | [facility] DEPARTMENT OF | [facility] [facility] | [place] [address] | | | PATHOLOGY | [address] [...] | + + + + + | [facility] DEPARTMENT OF | [address] | [place] [address] | | | PATHOLOGY | [address] | | | + + + + + | [facility] DEPARTMENT OF | [address] | [place] [address] | | | PATHOLOGY | [address] | | | + + + + + documented in this encounter Visit Diagnoses Not on filedocumented in this encounter"
--- OUTSIDE RECORDS SUMMARY | ~2019-02-03 | XMS | Encounter Summary ---
Demographics + + + | Address | [address] | | | [place] [address] | + + + | Home Phone [...] [place] | | | | | [address] | | + + + + + Care Team Providers + +------+ + | Care Monorail Car Operator Name | Role | Phone | + +------+ + | Bartolome Frederick DO | PCP | | + +------+ + Encounter Details +--------+ + + + + | Date | Type | Department | Care Team | Description | +--------+ + + + + | 04/19/ | Orders Only | [facility] | Ismael Young MD | | | 2017 | | NEPHROLOGY [place] | [address] [place] | | | | | [address] [place] | [address] [place], [place] | | | | | [address] [place], [place] | [address] | | | | | [address] | | | | | | [phone] | | | +--------+ + + + [...] [place] | | | | | | [address] | | | | | | | | +--------+---------+ + + + documented as of this encounter Procedures + +--------+ + + + | Procedure Name | Priori | Date/Time | Associated Diagnosis | Comments | | | ty | | | | + +--------+ + + + | EXTERNAL LAB: CBC | Routin | 04/19/2017 | | Results for this | | | e | 2:10 PM | | procedure are in the | | | | PDT | | results section. | + +--------+ + + + | URINALYSIS WITH | Routin | 04/19/2017 | | Results for this | | MICROSCOPIC IF | e | 2:10 PM | | procedure are in the | | INDICATED | | PDT | | results section. | + +--------+ + + + | PROTEIN/CREATININE | Routin | 04/19/2017 | | Results for this | | RATIO, URINE | e | 2:10 PM | | procedure are in the | | | | PDT | | results section. | + +--------+ + + + | PARATHYROID HORMONE, | Routin | 04/19/2017 | | Results for this | | INTACT | e | 2:10 PM | | procedure are in the | | | | PDT | | results section. | + +--------+ + + + | MAGNESIUM | Routin | 04/19/2017 | | Results for this | | | e | 2:10 PM | | procedure are in the | | | | PDT | | results section. | + +--------+ + + + | RENAL FUNCTION PANEL | Routin | 04/19/2017 | | Results for this | | | e | 2:10 PM | | procedure are in the | | | | PDT | | results section. | + +--------+ + + + documented in this encounter Results Protein/Creatinine Ratio, Urine (04/19/2017 2:10 PM PDT) + + + + + + | Component | Value | Ref Range | Performed | Pathologist | | | | | At | Signature | + + + + + + | Protein/Cre | 225.4 (A) | 0 - 150 | EXTERNAL [...] + + Urinalysis with Microscopic if Indicated (04/19/2017 2:10 PM PDT) + + + + + + | Component | Value | Ref Range | Performed | Pathologist | | | | | At | Signature | + + + + + + | Color | Rizwana | | EXTERNAL | | | | | | LAB | | + + + + + + | Clarity | Clear | | EXTERNAL | | | | | | LAB | | + + + + + + | Spec Grav, | 1.020 | 1.005 - 1.030 | EXTERNAL | [...] + + + + | Total | 25 | | EXTERNAL | | | Protein [...] Performed At | + + + | Casts: Hyaline 2+ Crystals: CA Oxalate 1+ | EXTERNAL LAB | + + + + +---------+ + + | Performing | Address | City/State/Zipcode | Phone Number | | Organization | | | | + +---------+ + + | EXTERNAL LAB | | | | + +---------+ + + External Lab: CBC (04/19/2017 2:10 PM PDT) + + + + + + | Component | Value | Ref Range | Performed | Pathologist | | | | | At | Signature | + + + + + + | WBC | 13.1 (A) | 4.5 - 11.0 10 | EXTERNAL | | | | | | LAB | | + + + + + + | RED CELL | 3.55 (A) | 4.3 - 5.7 10 | EXTERNAL | | | COUNT | | | LAB | | + + + + + + | Hgb | 10.7 (A) | 13.5 - 18.0 | EXTERNAL | | | | | g/dL | LAB | | + + + + + + | Hematocrit, | 32.5 (A) | 41 - 50 % | EXTERNAL | | | POC | | | LAB | | + + + + + + | MCV | 91.8 | 81 - 99 fL | EXTERNAL [...] + + + + | Platelet | 417 | 140 - 440 K/ L | EXTERNAL | | | Count | | | LAB | | | Plasma | | | | | + + + + + + | RDW-CV | 14.6 | 10.5 - 15.0 % | EXTERNAL [...] + +---------+ + + Parathyroid Hormone, Intact (04/19/2017 2:10 PM PDT) + +-------+ + + + | Component | Value | Ref Range | Performed | Pathologist | | | | | At | Signature | + +-------+ + + + | PTH INTACT | 23.59 | 15 - 65 pg/mL | EXTERNAL [...] | | + +---------+ + + Magnesium (04/19/2017 2:10 PM PDT) + +-------+ + + [...] + +---------+ + + Renal Function Panel (04/19/2017 2:10 PM PDT) + +---------+ + + + | Component | Value | Ref Range | Performed | Pathologist | | | | | At | Signature | + +---------+ + + + | Glucose, | 97 | 70 - 100 mg/dL | EXTERNAL | | | Fasting | | | LAB | | + +---------+ + + + | BUN | 36 (A) | 6 - 23 mg/dL | EXTERNAL | | | | | | LAB | | + +---------+ + + + | Creatinine | 1.6 (A) | 0.7 - 1.25 | EXTERNAL | | | | | mg/dL | LAB | | + +---------+ + + + | PHOSPHORUS | | mg/dL | EXTERNAL | | | | | | LAB | | + +---------+ + + + | Albumin | 4.1 | 3.5 - 5.0 | EXTERNAL | | | | | | LAB | | + +---------+ + + + | Na | 138 | 132 - 143 | EXTERNAL | | | | | mmol/L | LAB | | + +---------+ + + + | K | 5.0 | 3.6 - 5.1 | EXTERNAL | | | | | mmol/L | LAB | | + +---------+ + + + | Cl | 102 | 95 - 112 mmol/L | EXTERNAL | | | | | | LAB | | + +---------+ + + + | CO2 | 23 | 19 - 31 mmol/L | EXTERNAL | | | | | | LAB | | + +---------+ + + + | Anion Gap | 18 | 7 - 21 mmol/L | EXTERNAL | | | | | | LAB | | + +---------+ + + + | eGFR if not | | | EXTERNAL | | | | | | LAB | | | ICELANDIC | | | | | + +---------+ + + + | Phosphorus, | 3.9 | 2.5 - 5.0 | EXTERNAL | | | Inorganic | | | LAB | | + +---------+ + + + | BUN/Creatin | 22.5 | 6.0 - 28.6 | EXTERNAL | | | ine Ratio | | | LAB | | + +---------+ + + + | Calcium | 10 | 8.4 - 10.2 | EXTERNAL | | | | | mg/dL | LAB | | + +---------+ + + + | Estimated | 43 (A) | 60 mg/dL | EXTERNAL | [...]
--- OUTSIDE RECORDS SUMMARY | ~2019-02-03 | XMS | Encounter Summary ---
Demographics + + + | Address | [address] | | | [place] [address] | + + + | Home Phone | | + + + | Preferred Language | Unknown | + + + | Marital Status | | + + + | Shinto Affiliation | 1041 | + + + [...] [address] | | | | | [facility] | | | | | [address] | | + + + + + Care Team Providers + +------+ + | Care Cdl B Driver Name | Role | Phone | + +------+ + | Juliana Roberts NP | PCP | | + +------+ + Encounter Details +--------+ + + + + | Date | Type | Department | Care Team | Description | +--------+ + + + + | 08/31/ | Abstract | [facility] | Reji Mederos | | | 2017 | | PHYSIATRY [address] | | | | | [place], | [place], [place] | | | | | [place] [address] | [address] | | | | | [phone] | | | +--------+ + + + [...] | | | | | | [address] [place], [place] | | | | | | [address] | | | | | | | | +--------+---------+ + + + documented as of this encounter Visit Diagnoses Not on filedocumented in this encounter
--- OUTSIDE RECORDS SUMMARY | ~2019-02-03 | XMS | Encounter Summary ---
Demographics + + + | Address | [address] | | | [place] [address] | + + + | Home Phone | | + + + | Preferred Language | Unknown | + + + | Marital Status | | + + + | Jainism Affiliation | 1041 | + + + | Race | Unknown | + + + | Ethnic Group | Unknown | + + + Author + + + | Author | [facility] | | | and [place] | + + + | Organization | [facility] | | | and [...] [place] | | | | | [address] | | + + + + + Care Team Providers + +------+ + | Care Hosiery Operator Name | Role | Phone | + +------+ + | Bartolome Frederick DO | PCP | | + +------+ + Encounter Details +--------+ + + + + | Date | Type | Department | Care Team | Description | +--------+ + + + + | 05/03/ | Orders Only | [facility] | Ismael Young MD | | | 2017 | | NEPHROLOGY [place] | [address] [place] | | | | | [address] [place] | [address] [place], [place] | | | | | [address] [place], [place] | [address] | | | | | [address] | | | | | | [phone] | | | +--------+ + + + [...] [place] | | | | | | [address] | | | | | | | [...]
--- OUTSIDE RECORDS SUMMARY | ~2019-02-03 | XMS | Encounter Summary ---
Demographics + + + | Address | [address] | | | [place] [address] | + + + | Home Phone | | + + + | Preferred Language | Unknown | + + + | Marital Status | | + + + | Mormonism Affiliation | 1041 | + + + | Race | Unknown | + + + | Ethnic Group | Unknown | + + + Author + + + | Author | [facility] | | | and [place] | + + + | Organization | [facility] | | | [...] [place] | | | | | [address] | | + + + + + Care Team Providers + +------+ + | Care Child Care Lead Teacher Name | Role | Phone | + +------+ + | Bartolome Frederick DO | PCP | | + +------+ + Encounter Details +--------+ + + + + | Date | Type | Department | Care Team | Description | +--------+ + + + + | 10/23/ | Orders Only | [facility] | Ismael Young MD | | | 2017 | | NEPHROLOGY [place] | [address] [place] | | | | | [address] [place] | [address] [place], [place] | | | | | [address] [place], [place] | [address] | | | | | [address] | | | | | | [phone] | | | +--------+ + + + [...] 2020 | Visit | | [address] [facility] [facility] | | | | | | [address] [place] | | | | | | [address] | | | | | | | [...] | | | LAB | | | [facility] | | | | | + + [...]
--- OUTSIDE RECORDS SUMMARY | ~2019-02-03 | XMS | Encounter Summary ---
Demographics + + + | Address | [address] | | | [place] [address] | + + + | Home Phone [...] | Author | [facility] | | | and [place] | + + + | Organization | [facility] | | | and [...] [place] | | | | | [address] | | + + + + + Care Team Providers + +------+ + | Care Public Relations Professional Name | Role | Phone | + +------+ + | Bartolome Frederick DO | PCP | | + +------+ + Encounter Details +--------+ + + + + | Date | Type | Department | Care Team | Description | +--------+ + + + + | 05/11/ | Orders Only | [facility] | Conversion | | | 2017 | | NEPHROLOGY [place] | Transaction, | | | | | [address] [place] | Provider Unknown | | | | | [address] [place], [place] | | | | | | [address] | (Fax) | | | | | [phone] | | | +--------+ + + + [...] [place] | | | | | | [address] | | | | | | (Fax) | | +--------+---------+ + + + documented as of this encounter Procedures + +--------+ + + + | Procedure Name | Priori | Date/Time | Associated Diagnosis | Comments | | | ty | | | | + +--------+ + + + | PROTIME INR | Routin | 05/11/2016 | | Results for this | | | e | 8:07 AM | | procedure are in the | | | | PDT | | results section. | + +--------+ + + + | URINALYSIS, | Routin | 03/23/2016 | | Results for this | | MICROSCOPIC ONLY | e | 11:45 AM | | procedure are in the | | | | PST | | results section. | + +--------+ + + + documented in this encounter Results Protime INR (05/11/2016 8:07 AM PDT) + +-------+ + + + | Component | Value | Ref Range | Performed | Pathologist | | | | | At | Signature | + +-------+ + + + | Prothrombin | 29.3 | seconds | EXTERNAL | | | Time | | | LAB | | + +-------+ + + + | INR | 2.6 | | EXTERNAL | | | | [...] | | | + +---------+ + + Urinalysis, Microscopic Only (03/23/2016 11:45 AM PST) + + + + + [...] + + + + + + | Specific | 1.010 | | EXTERNAL | | | [place] | | | LAB | | + [...] + + + + | Protein, | 2+ | | EXTERNAL | | | Urine | | | LAB | | + + + + + + | pH, Urine | 6 | | EXTERNAL | | | | | | LAB | | + + + + + + | Blood, | Positive | | EXTERNAL | | | Urine [...]
--- OUTSIDE RECORDS SUMMARY | ~2019-02-03 | XMS | Encounter Summary ---
Demographics + + + | Address | [address] | | | [place] [address] | + + + | Home Phone [...] + + + | Author | [facility] | + + + | Organization | [facility] | + + + | Address [...] Team Providers + +------+ + | Care Ems Coordinator Name | Role | Phone | + +------+ + PCP | Unavailable | + +------+ + Encounter Details +--------+ + + + + | Date | Type | Department | Care Team | Description | +--------+ + + + + | 04/11/ | Abstract | [facility] | [place], | | | 2019 | | [address] | [facility] [address] | | | | | [place] Mailcode: | [place], [place] | | | | | [facility] | [address] | | | | | and Healing, | [phone] | | | | | [address] | | | | | | [place], [place] | | | | | | [address] | | | | | | [phone] | | | +--------+ + + + [...] Ave | | | | | | [facility] [address] | | | | | | [place] [address] | | | | | | [phone] | | | | | | | | +--------+---------+ + + + documented as of this encounter Visit Diagnoses Not on filedocumented in this encounter"
--- OUTSIDE RECORDS SUMMARY | ~2019-02-03 | XMS | Encounter Summary ---
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 Advil, Aleve, Ibuprofen), herbal supplements, and [place] 3 Fish Oil 10 days prior to [...] a neurosurgical H&P in preparation for [facility] spine surgery. He is scheduled for [...] is followed by Deanna sherman at the [facility]. PAS appointment 10/24/2018 with no further optimization [...] by mouth once daily in the evening. Fxrnkmm-Mzcpytgbd-Ppej oral tablet Take by mouth once daily. [...] 5 C8 (Wrist Ext) 5 5 C8 (Collar Trimmer) 5 5 T1 (Pinky Abd) 5 5 [...] Advil, A leve, Ibuprofen), herbal supplements, and [place] 3 Fish Oil 10 days prior to your surgery. With regard to warfarin, this will need to be discontinued 7 days with the start of a Loven ox bridge. Deanna Quinn at the [facility] Anticoagulation clinic will be handling the se details during the ariane-operative period. The goal INR is 1.4. She is aware per telephon e conversation on 10/25/2018. INR will be drawn the morning prior to surgery and the morning of surgery. Will repeat CBC to recheck WBC. Will confirm that MRI imaging is available on [facility]. 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
--- OUTSIDE RECORDS SUMMARY | ~2019-02-03 | XMS | Encounter Summary ---
Demographics + + + | Address | [address] | | | [place] [address] | + + + | Home Phone | | + + + | Preferred Language | Unknown | + + + | Marital Status | | + + + | Uatsdin Affiliation | 1041 | + + + [...] [place] | | | | | [address] | | + + + + + Care Team Providers + +------+ + | Care Dinkey Operator Slate Name | Role | Phone | + [...] | CARDIOLOGY [address] | MD [address] | | | | | [place], | [place], | | | | | [place] [address] | [place] [address] | | | | | [phone] | [phone] | | | | | | | [...] | Visit | | [address] [facility] | | | | | | [address] [place], [place] | | | | | | [address] | | | | | | | [...] ST. | [address] | [place] | | | [facility] | | [address] | | | - LABORATORY | | [...]
--- OUTSIDE RECORDS SUMMARY | ~2019-02-03 | XMS | Encounter Summary ---
Demographics + + + | Address | [address] | | | [place] [address] | + + + | Home Phone | | + + + | Preferred Language | Unknown | + + + | Marital Status | | + + + | Jain Affiliation | 1041 | + + + | Race | Unknown | + + + | Ethnic Group | Unknown | + + + Author + + + | Author | [facility] | | | and [place] | + + + | Organization | [facility] | | | [...] [place] | | | | | [address] | | + + + + + Care Team Providers + +------+ + | Care Neurology Epilepsy Physician Name | Role | Phone | + +------+ + | Bartolome Frederick DO | PCP | | + +------+ + Encounter Details +--------+ + + + + | Date | Type | Department | Care Team | Description | +--------+ + + + + | 11/08/ | Abstract | [facility] | Bartolome Frederick | | | 2017 | | [facility] | E, DO [address] | | | | | MEDICAL CLIN[facility] [address] | [place], [place] | | | | | [address] [place], | [address] | | | | | [place] [address] | [phone] | | | | | [phone] | | | +--------+ + + + [...] | | | | | | [address] [place], [place] | | | | | | [address] | | | | | | | [...]
--- OUTSIDE RECORDS SUMMARY | ~2019-02-03 | XMS | Encounter Summary ---
Demographics + + + | Address | [address] | | | [place] [address] | + + + | Home Phone | | + + + | Preferred Language | Unknown | + + + | Marital Status | | + + + | Methodist Affiliation | CAT | + + + [...] Team Providers + +------+ + | Care Drying Equipment Operator Name | Role | Phone | [...] | | | | r region | [place], | [address] | | | | | Lumbar | [place] [address] | [place], [place] | | | | | spondylosis | Phone: | [phone] | | | | | | [phone] | Phone: | | | | | Spondylolist | Fax: | [phone] | | | | | hesis of | [phone] | Fax: | | | | | lumbar | | [phone] | | | | | region | [...] | | | | | | | LAST REPAIRER | | | | | | | ME | | | | | | | ARTHRODESIS, | | | | | | | SINGLE | | | | | | | LEVEL;LUMBAR | | | | | | | , W/LAT | | | | | | | TRANSVERSE | | | | | | | ME LUMBAR | | | | | | | SPINE | | | | | | | FUSION,ANTER | | | | | | | APPRCH ME | | | | | | | INSERT | | | | | | | INTERBODY | | | | | | | BIOMECH | | | | | | | DEV,TO | | | | | | | INTERVERTEBR | | | | | | | AL DISC | | | | | | | SPACE ME | | | | | | | SPINE | | | | | | | FUSN,POST | | | | | | | TECH,EA | | | | | | | ADDNL SGMT | | | | | | | ME SPINAL | | | | | | | FUSION,ANT,E | | | | | | | A ADNL LEVEL | | | | | | | ME INSERT | | | | | | | VERT FIX | | | | | | | DEV,POST,3-6 | | | | | | | SGMTS ME | | | | | | | SCAN PROC | | | | | | | SPINAL ME | | | | | | | SPIN BONE | | | | | | | ALLOGRFT | | | | | | | MORSELIZED | | | | | | | ME SPIN BONE | | | | | [...] | | | | r region | [place], | | | | | | Lumbar | [place] [address] | | | | | | spondylosis | Phone: | | | | | | | [phone] | | | | | | Spondylolist | Fax: | | | | | | hesis of | [phone] | | | | | | lumbar [...] | | | | | lumbar | [address] | [place], [place] | | | | | region | Phone: | [phone] | | | | | Lesion of | [phone] | Phone: | | | | | sciatic | Fax: | [phone] | | | | | nerve, right | [phone] | Fax: | | | | | lower limb | | [phone] | | | | | Lesion of [...] | | [address] | [place] [address] | Lumbar spondylosis; | | | | [place], [place] | [phone] | Spondylolisthesis of | | | | [address] | | lumbar region; | | | | [phone] | | Lumbar degenerative | | | [...] + documented in this encounter Progress Notes Michael Durbin MD - 09/13/2018 10:15 AM PDTFormatting of this note might be different from t maldonado bridges. Michael Durbin MD [facility] [address] [address] NEUROSURGERY HISTORY AND PHYSICAL EXAMINATION CHIEF COMPLAINT: [...] mg by mouth once daily as needed. Grmrfzb-Gbumtvzvy-Mcvm oral tablet Take by mouth once daily. 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 CRANIAL NERVES: II: Acuity is intact. [...] Intrinsics 5 5 Ulnar Intrinsics 5 5 Faucet Polisher Strength 5 5 Hip Flexion 4* 5 [...] | 2019 | Visit | | [address] | | | | | | [facility] [address] | | | | | | [place] [address] | | | | | | [phone] | | | | | | | [...] RADIOLOGY | [address] | [place] [address] | [phone] | | VOICE RECOGNITION | | | | + + + + + X-RAY SCOLI SPINE ENTR ANASTASIA AP &LAT (09/13/2018 9:54 AM PDT) + + | Specimen | + + | | + + + + + | Narrative | Performed At | + + + | EXAM DESCRIPTION: X-RAY SCOLI SPINE ENTR [facility] AP &LAT CLINICAL | TUALITY | | [...] RADIOLOGY | [address] | [place] [address] | [phone] | | VOICE RECOGNITION | | | [...]
--- OUTSIDE RECORDS SUMMARY | ~2019-02-03 | XMS | Encounter Summary ---
Demographics + + + | Address | [address] | | | [place] [address] | + + + | Home Phone | | + + + | Preferred Language | Unknown | + + + | Marital Status | | + + + | Sabianist Affiliation | CAT | + + + [...] Team Providers + +------+ + | Care Treasury Assistant Name | Role | Phone | [...] | 2019 | Visit | | [address] | | | | | | [address] | | | | | | [place] [address] | | | | | | [phone] | | | | | | | | +--------+---------+ + + + documented as of this encounter Visit Diagnoses Not on filedocumented in this encounter"
--- OUTSIDE RECORDS SUMMARY | ~2019-02-03 | XMS | Encounter Summary ---
Demographics + + + | Address | [address] | | | [place] [address] | + + + | Home Phone [...] [place] | | | | | [address] | | + + + + + Care Team Providers + +------+ + | Care Tinner Helper Name | Role | Phone | + +------+ + | Bartolome Frederick DO | PCP | | + +------+ + Encounter Details +--------+ + + + + | Date | Type | Department | Care Team | Description | +--------+ + + + + | 04/19/ | Orders Only | [facility] | Ismael Young MD | | | 2017 | | NEPHROLOGY [place] | [address] [place] | | | | | [address] [place] | [address] [place], [place] | | | | | [address] [place], [place] | [address] | | | | | [address] | | | | | | [phone] | | | +--------+ + + + [...] [place] | | | | | | [address] | | | | | | | [...] | | | LAB | | | CITIZ[place] | | | | | + +---------+ [...]
--- OUTSIDE RECORDS SUMMARY | ~2019-02-03 | XMS | Encounter Summary ---
Demographics + + + | Address | [address] | | | [place] [address] | + + + | Home Phone | | + + + | Preferred Language | Unknown | + + + | Marital Status | | + + + | Sikh Affiliation | CAT | + + + [...] Team Providers + +------+ + | Care System Specialist Name | Role | Phone | [...] | Visit | | [address] [facility] | | | | | | [address] | | | | | | [place] [address] | | | | | | [phone] | | | | | | | | +--------+---------+ + + + documented as of this encounter Visit Diagnoses Not on filedocumented in this encounter"
--- OUTSIDE RECORDS SUMMARY | ~2019-02-03 | XMS | Encounter Summary ---
Demographics + + + | Address | [address] | | | [place] [address] | + + + | Home Phone | | + + + | Preferred Language | Unknown | + + + | Marital Status | | + + + | Scientologist Affiliation | CAT | + + + [...] Providers + +------+ + | Care Hospice Educator Name | Role | Phone | + +------+ + | Bartolome Frederick DO | PCP | | + +------+ + Encounter Details +--------+ + + + + | Date | Type | Department | Care Team | Description | +--------+ + + + + | 09/13/ | Ancillary | [facility] | Josh Gaona MD | | | 2019 | Orders | Neurosurgery at 7th | [address] [facility] | | | | | [address] | [address] | | | | | [place] [address] | [place], [place] | | | | | [place], [place] | [address] | | | | | [address] | [phone] | | | | | [phone] | | | +--------+ + + + [...] | [address] [facility] [address] | | | | | | [place] [address] | | | | | | [place] [address] | | | | | | [phone] | | | | | | | | +--------+---------+ + + + documented as of this encounter Visit Diagnoses Not on filedocumented in this encounter"
--- OUTSIDE RECORDS SUMMARY | ~2019-02-03 | XMS | Encounter Summary ---
Demographics + + + | Address | [address] | | | [place] [address] | + + + | Home Phone | | + + + | Preferred Language | Unknown | + + + | Marital Status | | + + + | Latter Day Affiliation | 1041 | + + + | Race | Unknown | + + + | Ethnic Group | Unknown | + + + Author + + + | Author | [facility] | | | and [place] | + + + | Organization | [facility] | | [...] [place] | | | | | [address] | | + + + + + Care Team Providers + +------+ + | Care Beef Splitter Name | Role | Phone | + [...] | | GATO CALABRESE | [facility], | | | | | [place], [place] | [place] [address] | | | | | [address] | [phone] | | | | | [phone] | | | +--------+ + + + [...] Visit | | [address] [facility] | | | | | | [address] [place], [place] | | | | | | [address] | | | | | | | [...] peak/ | | | mean gradient is 16.52azNj4.63mmHg (these were measured at 15.5 / 5.4 [...] | | | 1.03 m/s MV Dec Charles Mix: 8.52 m/s2 MV DecT: 234.65 ms MV [...] | 27.96 mmHg TR Vmax: 2.64 m/s Accounting Software Specialist: DBS Authenticated | | | by: SAMY JENNINGS MD Report Date/Time: -- 62_[id number]:10:16 | | + + + + + [...] | Mitral valve peak/ mean gradient is 16.00xcMb3.63mmHg (these were measured at 15.5 / 5.4 [...] cmLVPWd: | | 1.02 cmLVOT Area: 3.60 hl5TRXG Diam: 2.14 cm%FS: 24.71 %EF(Teich): 49.33 | | %ESV(Teich): 40.71 mlLVIDs: 3.19 cmSV(Teich): 39.63 mlRVIDd: 3.20 cmLVEF MOD | | A4C: 48.90 %SV MOD A4C: 69.24 mlLVEDV MOD A4C: 141.58 mlLVLd A4C: 9.26 cmLVESV | | MOD A4C: 72.34 mlLVLs A4C: 8.11 cmLAESV(A-L): 93.90 mlLAESV Index (A-L): 44.93 | | ml/m2LAAs A2C: 24.18 yu5MAKUL A-L A2C: 90.15 mlLALs A2C: 5.50 cmLAAs A4C: 24.92 | | pn1MKMAX A-L A4C: 96.81 mlLALs A4C: 5.44 cmRAAs: 12.64 kl2VRBID A-L: 28.47 | | mlRAESV MOD: 26.46 mlRALs: 4.76 cmTAPSE: 1.51 cmAV maxP.16 mmHgAV meanPG: | | 14.69 mmHgAV Vmax: 2.65 m/Rob Vmean: 1.81 m/Rob VTI: 60.09 cmAVA Vmax: 1.11 | | cm2AVA (VTI): 1.07 zc0RSWB (Vmax): 0.00 cm2/m2AVAI (VTI): 0.00 cm2/m2LVOT maxPG: | | 2.69 mmHgLVOT meanP.41 mmHgLVSI Dopp: 30.90 ml/m2LVSV Dopp: 64.58 mlLVOT | | Vmax: 0.82 m/sLVOT Vmean: 0.55 m/sLVOT VTI: 17.89 cmMV A Scott: 1.03 m/sMV Dec | | Charles Mix: 8.52 m/s2MV DecT: 234.65 msMV E Scott: 1.99 m/sMV E/A Ratio: 1.93MV PHT: | | 68.05 msMVA By PHT: 3.23 cm2MV maxP.16 mmHgMV meanP.63 mmHgMV Vmax: | | 2.01 m/sMV Vmean: 1.19 m/sMV VTI: 45.81 cmMVA (VTI): 1.40 cm2RAP: 5 mmHgRVSP: | | 32.96 mmHgTR maxP.96 mmHgTR Vmax: 2.64 m/s Accounting Software Specialist: DBSAuthenticated by: | | Marleen WOODARD Date/Time: -- [id number]:10:16 IMPRESSION: 1. Overall left | | ventricular [...] A Scott: 1.03 m/s | |MV Dec Charles Mix: 8.52 m/s2 | |MV DecT: 234.65 ms [...] |TR Vmax: 2.64 m/s | | | |Accounting Software Specialist: DBS | |Authenticated by: SAMY JENNINGS MD | |Report Date/Time: [id number]_93:10:16 | | | |IMPRESSION: | |1. Overall [...]
--- OUTSIDE RECORDS SUMMARY | ~2019-02-03 | XMS | Encounter Summary ---
Demographics + + + | Address | [address] | | | [place] [address] | + + + | Home Phone | | + + + | Preferred Language | Unknown | + + + | Marital Status | | + + + | Gnosticist Affiliation | 1041 | + + + | Race | Unknown | + + + | Ethnic Group | Unknown | + + + Author + + + | Author | [facility] | | | and [place] | + + + | Organization | [facility] | | | and [place] | + + + | Address | Unknown | + + + | Phone | Unavailable | + + + Support + + + + + | Name | Relationship | Address | Phone | + + + + + | Ai De La Paz | ECON | [address] | | | | | [facility] [place] | | | | | [address] | | + + + + + Care Team Providers + +------+ + | Care Battery Vent Plug Inserter Name | Role | Phone | + [...] | SR | | | | | [phone] | | | +--------+ + + + [...] [place] | | | | | | [address] | | | | | | | | +--------+---------+ + + + documented as of this encounter Visit Diagnoses Not on filedocumented in this encounter
--- OUTSIDE RECORDS SUMMARY | ~2019-02-03 | XMS | Encounter Summary ---
Demographics + + + | Address | [address] | | | [place] [address] | + + + | Home Phone | | + + + | Preferred Language | Unknown | + + + | Marital Status | | + + + | Presybeterian Affiliation | CAT | + + + [...] Team Providers + +------+ + | Care Leather Case Finisher Name | Role | Phone | + +------+ + | Bartolome Frederick DO | PCP | | + +------+ + Reason for Visit + + + | Reason | Comments | + + + | Antibiotic Guidance | | + + + Encounter Details +--------+ + + + + | Date | Type | Department | Care Team | Description | +--------+ + + + + | 11/10/ | Telephone | [facility] | Michael Durbin MD | Antibiotic Guidance | | 2019 | | Neurosurgery at [facility]th | [address] | | | | | [address] | [address] | | | | | [address] | [place] [address] | | | | | [place], [place] | [phone] | | | | | [address] | | | | | | [phone] | | | +--------+ + + + [...] 2020 | Visit | | [address] | | | | | | [address] | | | | | | [place] [address] | | | | | | [phone] | | | | | | | | +--------+---------+ + + + documented as of this encounter Visit Diagnoses Not on filedocumented in this encounter"
--- OUTSIDE RECORDS SUMMARY | ~2019-02-03 | XMS | Encounter Summary ---
Demographics + + + | Address | [address] | | | [place] [address] | + + + | Home Phone | | + + + | Preferred Language | Unknown | + + + | Marital Status | | + + + | Gnosticism Affiliation | 1041 | + + + | Race | Unknown | + + + | Ethnic Group | Unknown | + + + Author + + + | Author | [facility] | | | and [place] | + + + | Organization | [facility] | [...] [place] | | | | | [address] | | + + + + + Care Team Providers + +------+ + | Care Bonding Agent Name | Role | Phone | [...] Nonintractable | | 2019 | Visit | [facility] | E, DO [address] | headache, | | | | MEDICAL [facility] [address] | [place], [place] | unspecified | | | [address] [place], | [address] | chronicity pattern, | | | | [place] [address] | [phone] | unspecified headache | | | | [phone] | | type (Primary Dx) | +--------+---------+ [...] this head pain. He is going to [facility] May 16, 2018 to check [...] 2019 | Visit | | [address] [facility] | | | | | | [address] [place], [place] | | | | | | [address] | | | | | | | | +--------+---------+ + + + documented as of this encounter Visit Diagnoses + + | Diagnosis | + + | Nonintractable headache, unspecified chronicity pattern, unspecified headache type - | | Primary | + + documented in this encounter
--- OUTSIDE RECORDS SUMMARY | ~2019-02-03 | XMS | Encounter Summary ---
Demographics + + + | Address | [address] | | | [place] [address] | + + + | Home Phone | | + + + | Preferred Language | Unknown | + + + | Marital Status | | + + + | Temple Affiliation | CAT | + + + [...] Team Providers + +------+ + | Care Malt House Loader Name | Role | Phone | + +------+ + | OtonielBartolome DO | PCP | | + +------+ + Encounter Details +--------+--------+ + + + | Date | Type | Department | Care Team | Description | +--------+--------+ + + + | 11/05/ | Travel [...] | 2019 | Visit | | [address] [facility] [address] | | | | | | [address] | | | | | | [place] [address] | | | | | | [phone] | | | | | | | | +--------+---------+ + + + documented as of this encounter Visit Diagnoses Not on filedocumented in this encounter"
--- OUTSIDE RECORDS SUMMARY | ~2019-02-03 | XMS | Encounter Summary ---
Demographics + + + | Address | [address] | | | [place] [address] | + + + | Home Phone | | + + + | Preferred Language | Unknown | + + + | Marital Status | | + + + | Mandaen Affiliation | 1041 | + + + | Race | Unknown | + + + | Ethnic Group | Unknown | + + + Author + + + | Author | [facility] | | | and [place] | + + + | Organization | [facility] | | | and [place] | + + + | Address | Unknown | + + + | Phone | Unavailable | + + + Support + + + + + | Name | Relationship | Address | Phone | + + + + + | Ai De La Paz | ECON | [address] | | | | | [facility] | | | | | [address] | | + + + + + Care Team Providers + +------+ + | Care Double End Chucking Machine Operator Name | Role | Phone | + +------+ + PCP | Unavailable | + +------+ + Encounter Details +--------+ + + + + | Date | Type | Department | Care Team | Description | +--------+ + + + + | 10/29/ | [facility] | [facility] | Khai Ackerman | | | 2001 | Encounter | MED CTR LAB[facility]ORY | DO Bari | | | | | [address] | | | | | | [place] | | | | | | [address] | | | | | | [phone] | | | +--------+ + + + [...] 2020 | Visit | | [address] [facility] | | | | | | [address] [place], [place] | | | | | | [address] | | | | | | | | +--------+---------+ + + + documented as of this encounter Visit Diagnoses Not on filedocumented in this encounter"
--- OUTSIDE RECORDS SUMMARY | ~2019-02-03 | XMS | Encounter Summary ---
Demographics + + + | Address | [address] | | | [place] [address] | + + + | Home Phone | | + + + | Preferred Language | Unknown | + + + | Marital Status | | + + + | Judaism Affiliation | 1041 | + + + | Race | Unknown | + + + | Ethnic Group | Unknown | + + + Author + + + | Author | [facility] | | | and [place] | + + + | Organization | [facility] | | | and [place] | + + + | Address | Unknown | + + + | Phone | Unavailable | + + + Support + + + + + | Name | Relationship | Address | Phone | + + + + + | Ai De La Paz | ECON | [address] | | | | | [facility] | | | | | [address] | | + + + + + Care Team Providers + +------+ + | Care Flanging Roll Operator Name | Role | Phone | + +------+ + PCP | Unavailable | + +------+ + Encounter Details +--------+ + + + + | Date | Type | Department | Care Team | Description | +--------+ + + + + | 05/22/ | Hospital | [facility] | Khai Ackerman | | | 2002 | Encounter | MED CTR LAB[facility] | DO Bari | | | | | [address] | | | | | | [place] | | | | | | [address] | | | | | | [phone] | | | +--------+ + + + [...] 2020 | Visit | | [address] [facility] | | | | | | [address] [place], [place] | | | | | | [address] | | | | | | | | +--------+---------+ + + + documented as of this encounter Visit Diagnoses Not on filedocumented in this encounter"
--- OUTSIDE RECORDS SUMMARY | ~2019-02-03 | XMS | Encounter Summary ---
Demographics + + + | Address | [address] | | | [place] [address] | + + + | Home Phone | | + + + | Preferred Language | Unknown | + + + | Marital Status | | + + + | Restorationist Affiliation | CAT | + + + [...] Team Providers + +------+ + | Care Sql Architect Name | Role | Phone | + +------+ + | OtonielBartolome DO | PCP | | + +------+ + Encounter Details +--------+--------+ + + + | Date | Type | Department | Care Team | Description | +--------+--------+ + + + | 01/30/ | Travel [...] | | | | | [place] [address] | | | | | | [phone] | | | | | | | | +--------+---------+ + + + documented as of this encounter Visit Diagnoses Not on filedocumented in this encounter"
--- OUTSIDE RECORDS SUMMARY | ~2019-02-03 | XMS | Encounter Summary ---
Demographics + + + | Address | [address] | | | [place] [address] | + + + | Home Phone [...] + | Author | [facility] | | | and [place] | + + + | Organization | [facility] | | | and [...] [place] | | | | | [address] | | + + + + + Care Team Providers + +------+ + | Care Kayaking Instructor Name | Role | Phone | [...] | DO [address] | [address], | | | | | inal | [address] [place] | [address] | | | | | hemorrhage, | [place], [place] | [place], | | | | | unspecified | [address] | [place] [address] | | | | | Procedures | Phone: | Phone: | | | | | OFFICE | [phone] | [phone] | | | | | VISIT | Fax: | Fax: | | | | | | [phone] | [phone] | +--------+--------+ + + + + Encounter Details +--------+---------+ + + + | Date | Type | Department | Care Team | Description | +--------+---------+ + + + | 01/08/ | Office | [facility] | Carlos Calles MD | Gastrointestinal | | 2018 | Visit | GASTROENTEROLOGY | [address] | hemorrhage, | | | | [address] [facility] | [place], [place] | unspecified | | | | [address] [place], [place] | [address] | gastrointestinal | | | | [address] | [phone] | hemorrhage type | | | | [phone] | | (Primary Dx); | | | [...] 2020 | Visit | | [address] [facility] | | | | | | [address] [place] | | | | | | [address] | | | | | | | | +--------+---------+ + + + documented as of this encounter Visit Diagnoses + + | Diagnosis | + + | Gastrointestinal hemorrhage, unspecified gastrointestinal hemorrhage type - Primary | + + | Anemia, unspecified type | + + documented in this encounter
--- OUTSIDE RECORDS SUMMARY | ~2019-02-03 | XMS | Encounter Summary ---
Demographics + + + | Address | [address] | | | [place] [address] | + + + | Home Phone | | + + + | Preferred Language | Unknown | + + + | Marital Status | | + + + | Anabaptism Affiliation | 1041 | + + + | Race | Unknown | + + + | Ethnic Group | Unknown | + + + Author + + + | Author | [facility] | | | and [place] | + + + | Organization | [facility] | | [...] [address] | | | | | [facility] | | | | | [address] | | + + + + + Care Team Providers + +------+ + | Care Delivery Table Operator Name | Role | Phone | [...] [address] | | | | | [place] [address], | [place], [place] | | | | | [place] [address] | [address] | | | | | [phone] | | | +--------+ + + + [...] 2020 | Visit | | [address] [facility] | | | | | | [address] [place], [place] | | | | | | [address] | | | | | | | | +--------+---------+ + + + documented as of this encounter Visit Diagnoses Not on filedocumented in this encounter
--- OUTSIDE RECORDS SUMMARY | ~2019-02-03 | XMS | Encounter Summary ---
Demographics + + + | Address | [address] | | | [place] [address] | + + + | Home Phone | | + + + | Preferred Language | Unknown | + + + | Marital Status | | + + + | Advent Affiliation | CAT | + + + [...] Team Providers + +------+ + | Care Party Demonstrator Name | Role | Phone | + +------+ + | Bartolome Frederick DO | PCP | | + +------+ + Encounter Details +--------+ + + + + | Date | Type | Department | Care Team | Description | +--------+ + + + + | 01/28/ | Furniture Repair Technician | [facility] | Michael Durbin MD | S/P lumbar fusion | | 2019 | | Neurosurgery at [address]th | [address] | (Primary Dx) | | | | [address] | [address] | | | | | [address] | [place] [address] | | | | | [place], [place] | [phone] | | | | | [address] | | | | | | [phone] | | | +--------+ + + + [...] [address] | | | | | | [place] [address] | | | | | | [phone] | | | | | | | [...] body heights are maintained. | | | Yjte-yz-htyblxki spondylotic changes are again seen in the [...] identified.Vertebral | | body heights are maintained. Wgxy-ji-pxapwmjl spondylotic changes are again seen in | [...] identified. | |Vertebral body heights are maintained. Ojvs-rd-dffvcvzn spondylotic changes are again seen in the [...] RADIOLOGY | [address] | [place] [address] | [phone] | | VOICE RECOGNITION | | | | + + + + + documented in this encounter Visit Diagnoses + + | Diagnosis | + + | S/P lumbar fusion - Primary Arthrodesis status | + + documented in this encounter"
--- OUTSIDE RECORDS SUMMARY | ~2019-02-03 | XMS | Encounter Summary ---
Demographics + + + | Address | [address] | | | [place] [address] | + + + | Home Phone | | + + + | Preferred Language | Unknown | + + + | Marital Status | | + + + | Spiritism Affiliation | CAT | + + + [...] Providers + +------+ + | Care Service Aide Name | Role | Phone | + +------+ + | OtonielBartolome DO | PCP | | + +------+ + Encounter Details +--------+--------+ + + + | Date | Type | Department | Care Team | Description | +--------+--------+ + + + | 10/24/ | Travel | | | | | [...] | Visit | | [address] [facility] [address] | | | | | | [address] | | | | | | [place] [address] | | | | | | [phone] | | | | | | | | +--------+---------+ + + + documented as of this encounter Visit Diagnoses Not on filedocumented in this encounter"
--- OUTSIDE RECORDS SUMMARY | ~2019-02-03 | XMS | Encounter Summary ---
Demographics + + + | Address | [address] | | | [place] [address] | + + + | Home Phone | | + + + | Preferred Language | Unknown | + + + | Marital Status | | + + + | Pentecostal Affiliation | 1041 | + + + | Race | Unknown | + + + | Ethnic Group | Unknown | + + + Author + + + | Author | [facility] | | | and [place] | + + + | Organization | [facility] | | [...] [place] | | | | | [address] | | + + + + + Care Team Providers + +------+ + | Care Cumulative Effects Analyst Name | Role | Phone | + +------+ + | Bartolome Frederick DO | PCP | | + +------+ + Encounter Details +--------+ + + + + | Date | Type | Department | Care Team | Description | +--------+ + + + + | 05/11/ | Orders Only | [facility] | Conversion | | | 2017 | | NEPHROLOGY [place] | Transaction, | | | | | [address] | Provider Unknown | | | | | [address] [place], [place] | | | | | | [address] | (Fax) | | | | | [phone] | | | +--------+ + + + [...] Visit | | [address] [facility] | | | | | | [address] [place] | | | | | | [address] | | | | | | (Fax) [...] 1.010 | | EXTERNAL | | | [place] | | | LAB | | + [...]
--- OUTSIDE RECORDS SUMMARY | ~2019-02-03 | XMS | Encounter Summary ---
Demographics + + + | Address | [address] | | | [place] [address] | + + + | Home Phone | | + + + | Preferred Language | Unknown | + + + | Marital Status | | + + + | Anabaptist Affiliation | 1041 | + + + | Race | Unknown | + + + | Ethnic Group | Unknown | + + + Author + + + | Author | [facility] | | | and [place] | + + + | Organization | [facility] | | | and [...] [place] | | | | | [address] | | + + + + + Care Team Providers + +------+ + | Care Transcription Typist Name | Role | Phone | + +------+ + | Bartolome Frederick DO | PCP | | + +------+ + Encounter Details +--------+ + + + + | Date | Type | Department | Care Team | Description | +--------+ + + + + | 10/23/ | Orders Only | [facility] | Conversion | | | 2017 | | NEPHROLOGY [place] | Transaction, | | | | | [address] | Provider Unknown | | | | | [address] [place], [place] | | | | | | [address] | (Fax) | | | | | [phone] | | | +--------+ + + + [...] [place] | | | | | | [address] | | | | | | (Fax) [...]
--- OUTSIDE RECORDS SUMMARY | ~2019-02-03 | XMS | Encounter Summary ---
Demographics + + + | Address | [address] | | | [place] [address] | + + + | Home Phone [...] [place] | | | | | [address] | | + + + + + Care Team Providers + +------+ + | Care Pull Socket Assembler Name | Role | Phone | [...] | Anticoagulation | | 2019 | | [facility] | COMMERCIAL PEST CONTROL REPRESENTATIVE | | | | | [facility] [address] | | | | | | [address] [facility], | | | | | | [place] [address] | | | | | | [phone] | | | +--------+ + + + [...] | Shots of liquor 0-1 | | [place]) | | | Standard drinks or | [...] 2020 | Visit | | [address] [facility] | | | | | | [address] [place] | | | | | | [address] | | | | | | | | +--------+---------+ + + + documented as of this encounter Visit Diagnoses Not on filedocumented in this encounter"
--- OUTSIDE RECORDS SUMMARY | ~2019-02-03 | XMS | Encounter Summary ---
Demographics + + + | Address | [address] | | | [place] [address] | + + + | Home Phone [...] [place] | | | | | [address] | | + + + + + Care Team Providers + +------+ + | Care Orthodontic Assistant Name | Role | Phone | [...] | | [address] | [facility], | | | | | [place], [place] | [place] [address] | | | | | [address] | [phone] | | | | | [phone] | | | +--------+ + + + [...] Shots of liquor 0-1 | | [place]) | | | Standard drinks or | [...] 2020 | Visit | | [address] [facility] | | | | | | [address] [place], [place] | | | | | | [address] | | | | | | | [...] and color flow Doppler was perfomed at [facility]. | | | Study: This was a [...] 0.85 m/s | | | MV Dec George: 5.36 m/s2 MV DecT: 290.24 ms MV [...] TR Vmax: 2.74 m/s | | | Trim Technician: Authenticated by: SAMY JENNINGS MD Report Date/Time: [...] flow Doppler | | was perfomed at [facility].Study: This was a technically adequate study except [...] (A-L): | | 52.75 ml/m2LAAs A2C: 24.11 dm4MAUAT A-L A2C: 85.98 mlLAESV MOD A2C: 82.15 | | mlLALs A2C: 5.73 cmLAAs A4C: 30.17 en5VAAEY A-L A4C: 129.70 mlLAESV MOD A4C: | | 122.91 mlLALs A4C: 5.96 cmRAAs: 16.01 sx9OIBUV A-L: 37.57 mlRAESV MOD: 37.84 | | mlRALs: 5.79 cmTAPSE: 2.05 cmAV Env.Ti: 313.72 msAV maxP.20 mmHgAV meanPG: | | 17.48 mmHgAV Vmax: 2.60 m/Rob Vmean: 2.02 m/Rob VTI: 63.42 cmAVA Vmax: 1.55 | | cm2AVA (VTI): 1.62 jk1LTFV Vmax: 0.00 cm2/m2AVAI (VTI): 0.00 cm2/m2LVOT Env.Ti: | | 356.12 msLVOT maxP.96 mmHgLVOT meanP.72 mmHgLVSI Dopp: 50.62 ml/m2LVSV | | Dopp: 103.27 mlLVOT Vmax: 0.86 m/sLVOT Vmean: 0.61 m/sLVOT VTI: 21.99 cmMV A | | Scott: 0.85 m/sMV Dec George: 5.36 m/s2MV DecT: 290.24 msMV E Scott: 1.55 m/sMV E/A | | Ratio: 1.81MV maxP.40 mmHgMV meanP.46 mmHgMV Vmax: 1.68 m/sMV Vmean: | | 0.82 m/sMV VTI: 40.73 cmMVA (VTI): 2.53 cm2RAP: 5 mmHgRV S': 0.08 m/sRVSP: | | 35.11 mmHgTR maxP.11 mmHgTR Vmax: 2.74 m/s Trim Technician:Authenticated by: | | Marleen WOODARD Date/Time: 09-19-2018 [...] A Scott: 0.85 m/s | |MV Dec George: 5.36 m/s2 | |MV DecT: 290.24 ms [...] |TR Vmax: 2.74 m/s | | | |Trim Technician: | |Authenticated by: SAMY JENNINGS MD | [...]
--- OUTSIDE RECORDS SUMMARY | ~2019-02-03 | XMS | Encounter Summary ---
Demographics + + + | Address | [address] | | | [place] [address] | + + + | Home Phone | | + + + | Preferred Language | Unknown | + + + | Marital Status | | + + + | Sikh Affiliation | 1041 | + + + | Race | Unknown | + + + | Ethnic Group | Unknown | + + + Author + + + | Author | [facility] | | | and [place] | + + + | Organization | [facility] | | [...] [address] | | | | | [place] | | | | | [address] | | + + + + + Care Team Providers + +------+ + | Care Drying Frame Operator Name | Role | Phone | + +------+ + PCP | Unavailable | + +------+ + Encounter Details +--------+ + + + + | Date | Type | Department | Care Team | Description | +--------+ + + + + | 06/24/ | Hospital | [facility] | | | | 2002 - | Encounter | MED CTR MED ONC | | | | | | [address] | | | | 07/02/ | | [place] [address] | | | | 2002 | | [phone] | | | +--------+ + + + [...] | Visit | | [address] [facility] | | | | | | [address] [place] | | | | | | [address] | | | | | | | | +--------+---------+ + + + documented as of this encounter Visit Diagnoses Not on filedocumented in this encounter"
--- OUTSIDE RECORDS SUMMARY | ~2019-02-03 | XMS | Encounter Summary ---
Demographics + + + | Address | [address] | | | [place] [address] | + + + | Home Phone [...] Team Providers + +------+ + | Care Barrer And Tacker Name | Role | Phone | + [...] as of this encounter Progress Notes Interface, Photo Print Specialist In - 08/29/2005 3:09 AM PDT [place] [address], [place] [phone] , [facility], Department of Medicine Division of Cardiology Cardiac Catheterization Laboratory Patient Name: Lupillo CASTANEDA Patient Data: Height 177.8 cm Weight 94 kg BSA 2.12 m2 Date of Procedure: July 07, 2002 : 1950 Physician: Reji Palmer M.D. Photographic Specialist, Medicine Division of Cardiology Referring Physician: Hira Barros M.D. Professor, Medicine Division of Cardiology Primary Physician: Khai Ackerman D.O. [facility] [place] [address] INDICATIONS FOR PROCEDURE: Assessment of coronary anatomy [...] the low right atrium. Reji Palmer M.D. Photographic Specialist, Medicine Division of Cardiology [facility]/p Job No. [id number] signed by Interface, Photo Print Specialist In at 08/29/2005 3:09 AM PDTdocumented in this encounter Plan of Treatment +--------+---------+ + + + | Date | Type | Specialty | Care Team | Description | +--------+---------+ + + + | 04/30/ | Office | Neurological Surgery | Michael Durbin MD | | | 2019 | Visit | | [address] | | | | | | [address] | | | | | | [place] [address] | | | | | | [phone] | | | | | | | | +--------+---------+ + + + documented as of this encounter Visit Diagnoses Not on filedocumented in this encounter"
--- OUTSIDE RECORDS SUMMARY | ~2019-02-03 | XMS | Encounter Summary ---
Demographics + + + | Address | [address] | | | [place] [address] | + + + | Home Phone [...] | [address] | | | | | [facility] | | | | | [address] | | + + + + + Care Team Providers + +------+ + | Care Teletypist Name | Role | Phone | + [...] + | 04/16/ | Office | [facility] | [place], | Hyperlipidemia | | 2013 | Visit | CARDIOLOGY [address] | [place] [address] | (Primary Dx); | | | | [place], | [place], | Hypertension; | | | | [place] [address] | [place] [address] | ENDOCARDITIS,MITRAL | | | | [phone] | [phone] | VALVE W/ENLARGED | | | | [...] Patient continues to work full-time at the [employer]. He can exert himself without experiencing any [...] by mouth every 8 hours as needed tgibsnupis-klnvdmqoyjmnt-xgxmdqrt (ESGIC PLUS) per tablet One tablet by [...] valve replacement at [facility] in [place], [place], on . B. Patient reports transient [...] Patient is in a class I of [place] [employer] functional class. 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 B. A Holter [...] made to ensure accuracy; however, inadvertent computerized senior net web developer errors may be pre sent. Electronically signed by: KAYLIE Fuentes 04/16/2013 13:29 documented in this encounter Plan of Treatment +--------+---------+ + + + | Date | Type | Specialty | Care Team | Description | +--------+---------+ + + + | 02/19/ | Office | Nephrology | Ismael Young MD | | | 2019 | Visit | | [address] [facility] | | | | | | [address] [place], [place] | | | | | | [address] | | | | | | | [...]
--- OUTSIDE RECORDS SUMMARY | ~2019-02-03 | XMS | Encounter Summary ---
Demographics + + + | Address | [address] | | | [place] [address] | + + + | Home Phone [...] + + + | Author | [facility] | + + + | Organization | [facility] | + + + | [...] Team Providers + +------+ + | Care Card Assembler Name | Role | Phone | + +------+ + PCP | Unavailable | + +------+ + Encounter Details +--------+ + + + + | Date | Type | Department | Care Team | Description | +--------+ + + + + | 07/10/ | Results | Cardiothoracic | Cyrus Ortega PA | | | 2002 | Only | Surgery at [facility] [address] | | | | | [address] | | | | | | Mailcode: [id number] | | | | | | [address] | | | | | | [place], [place] | | | | | | [address] | | | | | | [phone] | | | +--------+ + + + [...] 2020 | Visit | | [address] | | | | | | [address] | | | | | | [place] [address] | | | | | | [phone] | | | | | | | | +--------+---------+ + + + documented as of this encounter Procedures + +--------+ + + + | Procedure Name | Priori | Date/Time | Associated Diagnosis | Comments | | | ty | | | | + +--------+ + + + | DIFFERENTIAL | Urgent | 07/10/2002 | | Results for this | | | | 5:00 AM | | procedure are in the | | | | PDT | | results section. | + +--------+ + + + | INR | Urgent | 07/10/2002 | | Results for this | | | | 5:00 AM | | procedure are in the | | | | PDT | | results section. | + +--------+ + + + | CBC, WITH | Urgent | 07/10/2002 | | Results for this | | DIFFERENTIAL | | 5:00 AM | | procedure are in the | | | | PDT | | results section. | + +--------+ + + + | BASIC METABOLIC SET | Urgent | 07/10/2002 | | Results for this | | (NA, K, CL, TCO2, | | 5:00 AM | | procedure are in the | | BUN, CR, GLU, CA) | | PDT | | results section. | + +--------+ + + + | PHOSPHORUS, PLASMA | Urgent | 07/10/2002 | | Results for this | | | | 5:00 AM | | procedure are in the | | | | PDT | | results section. | + +--------+ + + + | MAGNESIUM, PLASMA | Urgent | 07/10/2002 | | Results for this | | | | 5:00 AM | | procedure are in the | | | | PDT | | results section. | + +--------+ + + + documented in this encounter Results DIFFERENTIAL (07/10/2002 5:00 AM PDT) + + + + + [...] + + + | MONOCYTE % | 9 (H) | 2 - 8 % | [...] + + + + | NEUTROPHIL | 13.6 (H) | 1.8 - 7.7 K/cu | [...] + + + | MONOCYTE # | 1.5 (H) | 0.1 - 0.6 K/cu | [...] | + + + + + | [facility] DEPARTMENT OF | [address] [facility] | [place] [address] | | | PATHOLOGY | [address] | | | + + + + + | [facility] | [address] [facility] | [place] [address] | | | PATHOLOGY | [address] | | | + + + + + VICENTE WITH DIFFERENTIAL (07/10/2002 5:00 AM PDT) + + + + + + | Component | Value | Ref Range | Performed | Pathologist | | | | | At | Signature | + + + + + + | WHITE CELL | 16.4 (H) | 4.4 - 11.0 K/cu | [facility] | | | COUNT | | mm | DEPARTMENT | | | | | | OF | | | | | | PATHOLOGY | | + + + + + + | RED CELL | 3.55 (L) | 4.20 - 5.90 | [facility] | | | COUNT | | M/cu mm | DEPARTMENT | | | | | | OF | | | | | | PATHOLOGY | | + + + + + + | HEMOGLOBIN | 10.2 (L) | 13.0 - 17.5 | [facility] | | | | | g/dL | DEPARTMENT | | | | | | OF | | | | | | PATHOLOGY | | + + + + + + | HEMATOCRIT | 29.6 (L) | 38.0 - 50.4 % | [...] + + + + | MCH | 28.7 | 28.5 - 32.3 pg | [facility] [...] + + + + | RDW | 16.2 (H) | 11.5 - 15.0 % | [facility] | | | | | | DEPARTMENT | | | | | | OF | | | | | | PATHOLOGY | | + + + + + + | PLATELET | 325 | K/cu mm | [facility] | | [...] | + + + + + | [facility] DEPARTMENT OF | [address] | [place] [address] | | | PATHOLOGY | [address] | | | + + + + + | [facility] DEPARTMENT OF | [address] | [place] [address] | | | PATHOLOGY | [address] | | | + + + + + PROTHROMBIN TIME (07/10/2002 5:00 AM PDT) + + + + + + | Component | Value | Ref Range | Performed | Pathologist | | | | | At | Signature | + + + + + + | INR | 1.40Comment: | INR | [facility] | | | [...] | + + + + + | [facility] | [address] [facility] | [place] [address] | | | PATHOLOGY | [address] | | | + + + + + | [facility] | [address] [facility] [facility] | [place] [address] | | | PATHOLOGY | [address] | | | + + + + + BASIC METABOLIC SET (07/10/2002 5:00 AM PDT) + +---------+ + + + | Component | Value | Ref Range | Performed | Pathologist | | | | | At | Signature | + +---------+ + + + | GLUCOSE, | 175 (H) | 65 - 110 mg/dL | [facility] | | | PLASMA | | | DEPARTMENT | | | (LAB) | | | OF | | | | | | PATHOLOGY | | + +---------+ + + + | BUN, PLASMA | 10 | 6 - 20 mg/dL | [facility] [...] +---------+ + + + | POTASSIUM, | 4.8 | 3.5 - 5.1 | [facility] | | | PLASMA | | mmol/L | DEPARTMENT | | | (LAB) | | | OF | | | | | | PATHOLOGY | | + +---------+ + + + | CHLORIDE, | 96 (L) | 98 - 107 mmol/L | [...] +---------+ + + + | CALCIUM, | 7.5 (L) | 8.5 - 10.5 | [facility] [...] | + + + + + | [facility] DEPARTMENT OF | [address] | [place] [address] | | | PATHOLOGY | [address] | | | + + + + + | [facility] DEPARTMENT OF | [facility] | [place] [address] | | | PATHOLOGY | [address] | | | + + + + + MAGNESIUM, PLASMA (07/10/2002 5:00 AM PDT) + +-------+ + + + | Component | Value | Ref Range | Performed | Pathologist | | | | | At | Signature | + +-------+ + + + | MAGNESIUM,P | 2.5 | 1.8 - 2.5 mg/dL | [facility] [...] DEPARTMENT OF | [address] | [place] [address] | | | PATHOLOGY | [address] | | | + + + + + | [facility] DEPARTMENT OF | [address] | [place] [address] | | | PATHOLOGY | [address] | | | + + + + + PHOSPHORUS, PLASMA (07/10/2002 5:00 AM PDT) + +-------+ + + + | Component | Value | Ref Range | Performed | Pathologist | | | | | At | Signature | + +-------+ + + + | PHOSPHORUS, | 4.5 | 2.4 - 4.7 mg/dL | [facility] [...] | + + + + + | [facility] DEPARTMENT OF | [address] | [place] [address] | | | PATHOLOGY | [address] | | | + + + + + | [facility] DEPARTMENT OF | [address] | [place] [address] | | | PATHOLOGY | [address] | | | + + + + + documented in this encounter Visit Diagnoses Not on filedocumented in this encounter"
--- OUTSIDE RECORDS SUMMARY | ~2019-02-03 | XMS | Encounter Summary ---
Demographics + + + | Address | [address] | | | [place] [address] | + + + | Home Phone | | + + + | Preferred Language | Unknown | + + + | Marital Status | | + + + | Hoahaoism Affiliation | CAT | + + + | Race | White | + + + | Ethnic Group | Not or | + + + Author + + + | Author | [facility] | + + + | Organization | [facility] | + + + | [...] Team Providers + +------+ + | Care Surgical Aides Teacher Name | Role | Phone | [...] W | | | | ON | [address] | [facility] | | | | | [address] [facility] | [place], [place] | | | | | Mailcode: [id number] | [address] | | | | | [facility] | | | | | | and [place], | | | | | | Building [address] [place] [address] | | | | | | [place], [place] | | | | | | [address] | | | | | | [phone] | | | +--------+ + + + [...] [address] | | | | | | [place] [address] | | | | | | [phone] | | | | | | | [...]
--- OUTSIDE RECORDS SUMMARY | ~2019-02-03 | XMS | Encounter Summary ---
Demographics + + + | Address | [address] | | | [place] [address] | + + + | Home Phone [...] Team Providers + +------+ + | Care Proof Operator Name | Role | Phone | [...] | 2019 | Visit | | [address] [facility] [address] | | | | | | [address] | | | | | | [place] [address] | | | | | | [phone] | | | | | | | | +--------+---------+ + + + documented as of this encounter Visit Diagnoses Not on filedocumented in this encounter"
--- OUTSIDE RECORDS SUMMARY | ~2019-02-03 | XMS | Encounter Summary ---
Demographics + + + | Address | [address] | | | [place] [address] | + + + | Home Phone [...] Team Providers + +------+ + | Care Architectural Manager Name | Role | Phone | + +------+ + PCP | Unavailable | + +------+ + Encounter Details +--------+ + + + + | Date | Type | Department | Care Team | Description | +--------+ + + + + | 07/03/ | Results | | Other, Faculty | | | 2002 | Only | | [phone] | | +--------+ + + + + [...] | 2020 | Visit | | [address] [facility] [address] | | | | | | [facility] [address] | | | | | | [place] [address] | | | | | | [phone] | | | | | | | [...] | + + + + + | [facility] DEPARTMENT | [facility] | [place] [address] | | | PATHOLOGY | [address] | | | + + + + + | [facility] DEPARTMENT OF | [address] [facility] | [place] [address] | | | PATHOLOGY | [address] [...] | + + + + + | [facility] DEPARTMENT OF | [address] | [place] [address] | | | PATHOLOGY | [address] | | | + + + + + | [facility] DEPARTMENT | [address] | [place] [address] | | | PATHOLOGY | [address] [...] DEPARTMENT OF | [address] | [place] [address] | | | PATHOLOGY | [address] | | | + + + + + | [facility] DEPARTMENT | [address] | [place] [address] | | | PATHOLOGY | [address] [...] | + + + + + | [facility] DEPARTMENT OF | [address] [facility] | [place] [address] | | | PATHOLOGY | [address] | | | + + + + + | [facility] | [address] [facility] | [place] [address] | | | PATHOLOGY | [address] [...] DEPARTMENT OF | [address] | [place] [address] | | | PATHOLOGY | [address] | | | + + + + + | [facility] DEPARTMENT | [address] | [place] [address] | | | PATHOLOGY | [address] [...] DEPARTMENT OF | [address] | [place] [address] | | | PATHOLOGY | [address] | | | + + + + + | [facility] DEPARTMENT OF | [address] | [place] [address] | | | PATHOLOGY | [address] | | | + + + + + PHOSPHORUS, PLASMA (07/13/2002 6:20 AM PDT) + +-------+ + + + | Component | Value | Ref Range | Performed | Pathologist | | | | | At | Signature | + +-------+ + + + | PHOSPHORUS, | 3.6 | 2.4 - 4.7 mg/dL | [facility] | | | PLASMA | | | [...] | + + + + + | [facility] DEPARTMENT OF | [address] | [place] [address] | | | PATHOLOGY | [address] | | | + + + + + | [facility] DEPARTMENT OF | [address] | [place] [address] | | | PATHOLOGY | [address] [...] | + + + + + | [facility] DEPARTMENT OF | [address] | [place] [address] | | | PATHOLOGY | [address] | | | + + + + + | [facility] DEPARTMENT OF | [address] | [place] [address] | | | PATHOLOGY | [address] [...] | + + + + + | [facility] | [address] [facility] | [place] [address] | | | PATHOLOGY | [address] | | | + + + + + | [facility] | [address] [facility] | [place] [address] | | | PATHOLOGY | [address] [...] | + + + + + | [facility] DEPARTMENT OF | [address] [facility] | [place] [address] | | | PATHOLOGY | [address] | | | + + + + + | [facility] DEPARTMENT OF | [address] [place] [address] | [place] [address] | | | PATHOLOGY | [address] [...] | + + + + + | [facility] DEPARTMENT OF | [address] | [place] [address] | | | PATHOLOGY | [address] | | | + + + + + | [facility] DEPARTMENT OF | [address] | [place] [address] | | | PATHOLOGY | [address] | | | + + + + + MAGNESIUM, PLASMA (07/12/2002 5:45 AM PDT) + +-------+ + + + | Component | Value | Ref Range | Performed | Pathologist | | | | | At | Signature | + +-------+ + + + | MAGNESIUM,P | 2.2 | 1.8 - 2.5 mg/dL | [facility] | | | LASMA | | | [...] DEPARTMENT OF | [address] | [place] [address] | | | PATHOLOGY | [address] | | | + + + + + | [facility] DEPARTMENT OF | [address] | [place] [address] | | | PATHOLOGY | [address] [...] | + + + | Ordered by ELBETR EDWARDS | [facility] | | | DEPARTMENT OF | | | PATHOLOGY | + + + + + + + + | Performing | Address | City/State/Zipcode | Phone Number | | Organization | | | | + + + + + | [facility] DEPARTMENT OF | [address] | [place] [address] | | | PATHOLOGY | [address] | | | + + + + + | [facility] | [address] | [place] [address] | | | PATHOLOGY | [address] [...] PRIMARY | | | | | | ASSISTANT PROFESSOR OF ANTHROPOLOGY: | | | | | | Joselo | | | | | | Yodit Sauer ASSISTANT GENERAL MANAGER | | | | | | ASSISTANT PROFESSOR OF ANTHROPOLOGY: | | | | | | Elbert [...] 9.5 | | | | | | Yemeni dual lumen | | | | | [...] | | | | of a 9.5 Yemeni | | | | | | Groshong [...] 9.5 | | | | | | Yemeni dual lumen | | | | | [...] | | | | | | CACHORRO GACRIA M.D.TWO | | | | | | [...] | | + +---------+ + + | [facility] DEPARTMENT OF | | | | [...] | + + + + + | [facility] | [address] [facility] | [place] [address] | | | PATHOLOGY | [address] | | | + + + + + | [facility] | [address] [facility] | [place] [address] | | | PATHOLOGY | [address] [...] | + + + + + | [facility] DEPARTMENT OF | [address] | [place] [address] | | | PATHOLOGY | [address] | | | + + + + + | [facility] DEPARTMENT OF | [address] | [place] [address] | | | PATHOLOGY | [address] | | | + + + + + PROTHROMBIN TIME (07/11/2002 7:42 AM PDT) + + + + + + | Component | Value | Ref Range | Performed | Pathologist | | | | | At | Signature | + + + + + + | INR | 1.45Comment: | INR | [facility] | | | | PT INR Therapeutic [...] | + + + + + | [facility] | [address] [facility] | [place] [address] | | | PATHOLOGY | [address] | | | + + + + + | [facility] | [address] [facility] | [facility] [place] [address] | | | PATHOLOGY | [address] [...] | + + + + + | [facility] DEPARTMENT OF | [address] | [place] [address] | | | PATHOLOGY | [address] | | | + + + + + | [facility] DEPARTMENT OF | [facility] [address] | [place] [address] | | | PATHOLOGY | [address] [...] DEPARTMENT OF | [address] | [place] [address] | | | PATHOLOGY | [address] | | | + + + + + | [facility] DEPARTMENT | [address] | [place] [address] | | | PATHOLOGY | [address] | | | + + + + + MAGNESIUM, PLASMA (07/11/2002 7:42 AM PDT) + +-------+ + + + | Component | Value | Ref Range | Performed | Pathologist | | | | | At | Signature | + +-------+ + + + | MAGNESIUM,P | 2.3 | 1.8 - 2.5 mg/dL | [facility] | | | LASMA | | | [...] DEPARTMENT OF | [address] | [place] [address] | | | PATHOLOGY | [address] | | | + + + + + | [facility] DEPARTMENT OF | [address] | [place] [address] | | | PATHOLOGY | [address] | | | + + + + + PHOSPHORUS, PLASMA (07/11/2002 7:42 AM PDT) + +-------+ + + + | Component | Value | Ref Range | Performed | Pathologist | | | | | At | Signature | + +-------+ + + + | PHOSPHORUS, | 3.8 | 2.4 - 4.7 mg/dL | [facility] | | | PLASMA | | | [...] | + + + + + | [facility] DEPARTMENT OF | [address] | [place] [address] | | | PATHOLOGY | [address] | | | + + + + + | [facility] DEPARTMENT OF | [address] | [place] [address] | | | PATHOLOGY | [address] [...] | + + + + + | [facility] DEPARTMENT OF | [facility] [address] | [place] [address] | | | PATHOLOGY | [address] | | | + + + + + | [facility] DEPARTMENT OF | [address] | [place] [address] | | | PATHOLOGY | [address] [...] | + + + + + | [facility] DEPARTMENT OF | [address] | [place] [address] | | | PATHOLOGY | [address] | | | + + + + + | [facility] DEPARTMENT OF | [address] | [place] [address] | | | PATHOLOGY | [address] [...] | + + + + + | [facility] DEPARTMENT OF | [address] | [place] [address] | | | PATHOLOGY | [address] | | | + + + + + | [facility] DEPARTMENT OF | [address] | [place] [address] | | | PATHOLOGY | [address] [...] | + + + + + | [facility] DEPARTMENT | [address] [facility] | [place] [address] | | | PATHOLOGY | [address] | | | + + + + + | [facility] DEPARTMENT OF | [address] [facility] | [place] [address] | | | PATHOLOGY | [address] [...] | + + + + + | [facility] DEPARTMENT OF | [address] [facility] | [place] [address] | | | PATHOLOGY | [address] | | | + + + + + | [facility] DEPARTMENT OF | [address] | [place] [address] | | | PATHOLOGY | [address] [...] | + + + + + | [facility] DEPARTMENT OF | [facility] [address] | [place] [address] | | | PATHOLOGY | [address] | | | + + + + + | [facility] DEPARTMENT OF | [facility] [address] | [place] [address] | | | PATHOLOGY | [address] [...] | + + + + + | [facility] DEPARTMENT OF | [address] | [place] [address] | | | PATHOLOGY | [address] | | | + + + + + | [facility] DEPARTMENT OF | [address] | [place] [address] | | | PATHOLOGY | [address] [...] DEPARTMENT OF | [address] | [place] [address] | | | PATHOLOGY | [address] | | | + + + + + | [facility] DEPARTMENT OF | [address] | [place] [address] | | | PATHOLOGY | [address] [...] DEPARTMENT OF | [address] | [place] [address] | | | PATHOLOGY | [address] | | | + + + + + | [facility] DEPARTMENT OF | [address] | [place] [address] | | | PATHOLOGY | [address] [...] ELBERT EDWARDS Arterial Blood Gas Blood | [facility] | | Gas results corrected for patient's temp when available | DEPARTMENT OF | | | PATHOLOGY | + + + + + + + + | Performing | Address | City/State/Zipcode | Phone Number | | Organization | | | | + + + + + | [facility] DEPARTMENT | [facility] | [place] [address] | | | PATHOLOGY | [address] | | | + + + + + | [facility] DEPARTMENT OF | [facility] | [facility] [place] [address] | | | PATHOLOGY | [address] [...] | + + + + + | [facility] DEPARTMENT OF | [address] [facility] | [place] [address] | | | PATHOLOGY | [address] | | | + + + + + | [facility] DEPARTMENT OF | [address] [facility] | [place] [address] | | | PATHOLOGY | [address] [...] | + + + + + | [facility] DEPARTMENT OF | [address] | [place] [address] | | | PATHOLOGY | [address] | | | + + + + + | [facility] DEPARTMENT OF | [address] | [place] [address] | | | PATHOLOGY | [address] [...] + + | Ordered by ELBERT EDWARDS [id number] Specimen collected in [facility] | [facility] | | type of tube. | DEPARTMENT OF | | | PATHOLOGY | + + + + + + + + | Performing | Address | City/State/Zipcode | Phone Number | | Organization | | | | + + + + + | [facility] DEPARTMENT OF | [address] [facility] | [place] [address] | | | PATHOLOGY | [address] | | | + + + + + | [facility] DEPARTMENT OF | [address] [facility] | [place] [address] | | | PATHOLOGY | [address] [...] | + + + + + | [facility] DEPARTMENT OF | [address] | [place] [address] | | | PATHOLOGY | [address] | | | + + + + + | [facility] DEPARTMENT OF | [address] | [place] [address] | | | PATHOLOGY | [address] [...] | + + + + + | [facility] DEPARTMENT OF | [address] | [place] [address] | | | PATHOLOGY | [address] | | | + + + + + | [facility] DEPARTMENT OF | [address] | [place] [address] | | | PATHOLOGY | [address] [...] | + + + + + | [facility] DEPARTMENT OF | [address] | [place] [address] | | | PATHOLOGY | [address] | | | + + + + + | [facility] DEPARTMENT OF | [address] | [place] [address] | | | PATHOLOGY | [address] [...] | + + + + + | [facility] DEPARTMENT OF | [address] | [place] [address] | | | PATHOLOGY | [address] | | | + + + + + | [facility] | [facility] | [place] [address] | | | PATHOLOGY | [address] [...] DEPARTMENT OF | [address] | [place] [address] | | | PATHOLOGY | [address] | | | + + + + + | [facility] | [address] | [place] [address] | | | PATHOLOGY | [address] [...] | + + + + + | [facility] | [address] | [place] [address] | | | LAB-MICRO | | | [...] | + + + + + | [facility] DEPARTMENT OF | [address] | [place] [address] | | | PATHOLOGY | [address] | | | + + + + + | [facility] DEPARTMENT OF | [address] | [place] [address] | | | PATHOLOGY | [address] [...] DEPARTMENT OF | [address] | [place] [address] | | | PATHOLOGY | [address] | | | + + + + + | [facility] DEPARTMENT OF | [address] | [place] [address] | | | PATHOLOGY | [address] | | | + + + + + DIFFERENTIAL (07/08/2002 7:40 AM PDT) + +---------+ + + + | Component | Value | Ref Range | Performed | Pathologist | | | | | At | Signature | + +---------+ + + + | NEUTROPHIL | 78 (H) | 50 - 70 % | [facility] | | | % | | | [...] DEPARTMENT OF | [address] | [place] [address] | | | PATHOLOGY | [address] | | | + + + + + | [facility] DEPARTMENT OF | [address] | [place] [address] | | | PATHOLOGY | [address] [...] DEPARTMENT OF | [address] | [place] [address] | | | PATHOLOGY | [address] | | | + + + + + | [facility] DEPARTMENT | [address] | [place] [address] | | | PATHOLOGY | [address] [...] | + + + + + | [facility] DEPARTMENT | [address] [facility] | [place] [address] | | | PATHOLOGY | [address] | | | + + + + + | [facility] | [address] [facility] | [place] [address] | | | PATHOLOGY | [address] [...] | + + + + + | [facility] | [address] [facility] | [place] [address] | | | PATHOLOGY | [address] | | | + + + + + | [facility] | [address] [place] [address] | [place] [address] | | | PATHOLOGY | [address] [...] | + + + + + | [facility] DEPARTMENT OF | [address] | [place] [address] | | | PATHOLOGY | [address] | | | + + + + + | [facility] DEPARTMENT OF | [address] | [place] [address] | | | PATHOLOGY | [address] [...] DEPARTMENT OF | [address] | [place] [address] | | | PATHOLOGY | [address] | | | + + + + + | [facility] DEPARTMENT OF | [address] | [place] [address] | | | PATHOLOGY | [address] [...] | + + + + + | [facility] DEPARTMENT OF | [address] [facility] | [place] [address] | | | PATHOLOGY | [address] | | | + + + + + | [facility] | [address] [facility] | [place] [address] | | | PATHOLOGY | [address] [...] | + + + + + | [facility] | [address] | [place] [address] | | | LAB-MICRO | | | [...] + + + | [facility] | [address] | [place] [address] | | | LAB-MICRO | | | [...] | + + + + + | [facility] DEPARTMENT OF | [address] | [place] [address] | | | PATHOLOGY | [address] | | | + + + + + | [facility] DEPARTMENT OF | [facility] [address] | [place] [address] | | | PATHOLOGY | [address] [...] DEPARTMENT OF | [address] | [place] [address] | | | PATHOLOGY | [address] | | | + + + + + | [facility] DEPARTMENT OF | [address] | [place] [address] | | | PATHOLOGY | [address] [...] | + + + + + | [facility] | [address] [facility] | [place] [address] | | | PATHOLOGY | [address] | | | + + + + + | [facility] | [address] [place] [address] | [place] [address] | | | PATHOLOGY | [address] [...] | + + + + + | [facility] | [address] [facility] | [place] [address] | | | PATHOLOGY | [address] | | | + + + + + | [facility] | [address] [place] [address] | [place] [address] | | | PATHOLOGY | [address] [...] | + + + + + | [facility] | [address] [facility] | [place] [address] | | | PATHOLOGY | [address] | | | + + + + + | [facility] | [address] [place] [address] | [place] [address] | | | PATHOLOGY | [address] [...] | + + + + + | [facility] DEPARTMENT OF | [address] | [place] [address] | | | PATHOLOGY | [address] | | | + + + + + | [facility] DEPARTMENT OF | [address] | [place] [address] | | | PATHOLOGY | [address] [...] | + + + + + | [facility] | [address] | [place] [address] | | | LAB-MICRO | | | [...] | + + + + + | [facility] | [address] | [place] [address] | | | LAB-MICRO | | | [...] | + + + + + | [facility] DEPARTMENT OF | [address] | [place] [address] | | | PATHOLOGY | [address] | | | + + + + + | [facility] DEPARTMENT OF | [address] | [place] [address] | | | PATHOLOGY | [address] [...] | + + + + + | [facility] | [address] | [place] [address] | | | PATHOLOGY | [address] | | | + + + + + | [facility] | [address] | [place] [address] | | | PATHOLOGY | [address] [...] | + + + + + | [facility] DEPARTMENT | [facility] | [place] [address] | | | PATHOLOGY | [address] | | | + + + + + | [facility] DEPARTMENT OF | [address] [facility] | [place] [address] | | | PATHOLOGY | [address] [...] | + + + + + | [facility] DEPARTMENT OF | [address] | [place] [address] | | | PATHOLOGY | [address] | | | + + + + + | [facility] | [address] | [place] [address] | | | PATHOLOGY | [address] [...] | + + + + + | [facility] DEPARTMENT OF | [address] | [place] [address] | | | PATHOLOGY | [address] | | | + + + + + | [facility] OF | [address] | [place] [address] | | | PATHOLOGY | [address] [...] | + + + + + | [facility] DEPARTMENT OF | [address] | [place] [address] | | | PATHOLOGY | [address] | | | + + + + + | [facility] DEPARTMENT OF | [address] | [place] [address] | | | PATHOLOGY | [address] [...] + + + + | PRODUCT | [id number] | | [facility] | | | UNIT [...] | + + + + + | [facility] DEPARTMENT OF | [address] [facility] | [place] [address] | | | PATHOLOGY | [address] | | | + + + + + | [facility] DEPARTMENT OF | [address] [facility] | [place] [address] | | | PATHOLOGY | [address] [...] + + + + | PRODUCT | [id number] | | [facility] | | | UNIT [...] | + + + + + | [facility] DEPARTMENT OF | [address] | [place] [address] | | | PATHOLOGY | [address] | | | + + + + + | [facility] | [facility] [address] | [place] [address] | | | PATHOLOGY | [address] [...] | + + + + + | [facility] DEPARTMENT OF | [address] [facility] | [place] [address] | | | PATHOLOGY | [address] | | | + + + + + | [facility] DEPARTMENT OF | [address] [facility] | [place] [address] | | | PATHOLOGY | [address] [...] + + + | [facility] | [address] | [place] [address] | | | LABORATORY | | | [...] DEPARTMENT OF | [address] | [place] [address] | | | PATHOLOGY | [address] | | | + + + + + | [facility] DEPARTMENT OF | [address] | [place] [address] | | | PATHOLOGY | [address] [...] | + + + + + | [facility] DEPARTMENT OF | [address] | [place] [address] | | | PATHOLOGY | [address] | | | + + + + + | [facility] DEPARTMENT OF | [address] | [place] [address] | | | PATHOLOGY | [address] [...] | + + + + + | [facility] DEPARTMENT | [address] [facility] | [place] [address] | | | PATHOLOGY | [address] | | | + + + + + | [facility] | [address] [facility] | [place] [address] | | | PATHOLOGY | [address] [...] | + + + + + | [facility] | [address] | [place] [address] | | | LABORATORY | | | [...] + + + | [facility] | [address] | [place] [address] | | | LAB-MICRO | | | [...] | + + + + + | [facility] | [address] | [place] [address] | | | LAB-MICRO | | | [...] DEPARTMENT OF | [address] | [place] [address] | | | PATHOLOGY | [address] | | | + + + + + | [facility] DEPARTMENT | [address] [facility] | [place] [address] | | | PATHOLOGY | [address] [...] | + + + + + | [facility] DEPARTMENT | [address] | [place] [address] | | | PATHOLOGY | [address] | | | + + + + + | [facility] DEPARTMENT OF | [facility] [address] | [place] [address] | | | PATHOLOGY | [address] [...] | + + + + + | [facility] DEPARTMENT OF | [address] | [place] [address] | | | PATHOLOGY | [address] | | | + + + + + | [facility] DEPARTMENT OF | [address] | [place] [address] | | | PATHOLOGY | [address] [...] | + + + + + | [facility] | [address] | [place] [address] | | | PATHOLOGY | [address] | | | + + + + + | [facility] | [address] | [place] [address] | | | PATHOLOGY | [address] [...] | + + + + + | [facility] DEPARTMENT OF | [facility] [address] | [place] [address] | | | PATHOLOGY | [address] | | | + + + + + | [facility] DEPARTMENT OF | [address] | [place] [address] | | | PATHOLOGY | [address] [...] DEPARTMENT OF | [address] | [place] [address] | | | PATHOLOGY | [address] | | | + + + + + | [facility] DEPARTMENT OF | [address] | [place] [address] | | | PATHOLOGY | [address] [...] | + + + + + | [facility] DEPARTMENT OF | [address] [facility] | [place] [address] | | | PATHOLOGY | [address] | | | + + + + + | [facility] DEPARTMENT OF | [address] [facility] | [place] [address] | | | PATHOLOGY | [address] [...] DEPARTMENT OF | [address] | [place] [address] | | | PATHOLOGY | [address] | | | + + + + + | [facility] | [address] | [place] [address] | | | PATHOLOGY | [address] [...] + + + | [facility] | [address] | [place] [address] | | | LAB-MICRO | | | [...] | + + + + + | [facility] DEPARTMENT OF | [address] [facility] [address] | [place] [address] | | | PATHOLOGY | [address] | | | + + + + + | [facility] DEPARTMENT OF | [address] [facility] | [place] [address] | | | PATHOLOGY | [address] [...] DEPARTMENT OF | [address] | [place] [address] | | | PATHOLOGY | [address] | | | + + + + + | [facility] DEPARTMENT OF | [address] | [place] [address] | | | PATHOLOGY | [address] [...] | + + + + + | [facility] DEPARTMENT OF | [address] [place] [address] | [place] [address] | | | PATHOLOGY | [address] | | | + + + + + | [facility] DE[facility]MENT OF | [address] [place] [address] | [place] [address] | | | PATHOLOGY | [address] [...] | + + + + + | [facility] DEPARTMENT OF | [address] | [place] [address] | | | PATHOLOGY | [address] | | | + + + + + | [facility] DEPARTMENT OF | [address] | [place] [address] | | | PATHOLOGY | [address] [...] | + + + + + | [facility] DEPARTMENT OF | [address] | [place] [address] | | | PATHOLOGY | [address] | | | + + + + + | [facility] DEPARTMENT OF | [address] | [place] [address] | | | PATHOLOGY | [address] [...] | + + + + + | [facility] | [address] [facility] | [place] [address] | | | PATHOLOGY | [address] | | | + + + + + | [facility] | [facility] | [facility] [place] [address] | | | PATHOLOGY | [address] [...] | + + + + + | [facility] DEPARTMENT OF | [address] [facility] | [place] [address] | | | PATHOLOGY | [address] | | | + + + + + | [facility] DEPARTMENT OF | [address] [facility] | [place] [address] | | | PATHOLOGY | [address] [...] | | + +---------+ + + | [facility] DEPARTMENT OF | | | | [...] | | | | | | : [facility] line [address] | | | [...] | + + + + + | [facility] | [address] | [place] [address] | | | LAB-MICRO | | | [...] + + + | [facility] | [address] | [place] [address] | | | LAB-MICRO | | | [...] + + | Ordered by TATI SAAB [phone] Staff or dialysis draw | | | required. | | + + + + + + + + | Performing | Address | City/State/Zipcode | Phone Number | | Organization | | | | + + + + + | [facility] | [address] | [place] [address] | | | LAB-MICRO | | | [...] | | | | Test performed at [place] | | | | | | [facility] [...] + + + | [facility] | [address] | [place] [address] | | | LABORATORY | | | [...] [facility] | [address] | [place], [place] | | | UNIV [facility] | | [address] | | + + + + + [...] | + + + + + | [facility] | [address] | [place] [address] | | | PATHOLOGY | [address] | | | + + + + + | [facility] | [address] | [place] [address] | | | PATHOLOGY | [address] [...] + + | Ordered by TATI SAAB [id number] *Corrected* 07/03/02 09:08 | [facility] | | [...] DEPARTMENT OF | [address] | [place] [address] | | | PATHOLOGY | [address] | | | + + + + + | [facility] DEPARTMENT OF | [address] | [place] [address] | | | PATHOLOGY | [address] [...] | + + + + + | [facility] DEPARTMENT OF | [address] | [place] [address] | | | PATHOLOGY | [address] | | | + + + + + | [facility] DEPARTMENT OF | [address] | [place] [address] | | | PATHOLOGY | [address] [...] + + | Ordered by TATI SAAB [id number] *Corrected* 07/03/02 09:08 | [facility] | | [...] | + + + + + | [facility] | [address] | [place] [address] | | | PATHOLOGY | [address] | | | + + + + + | [facility] | [address] | [place] [address] | | | PATHOLOGY | [address] [...] | + + + + + | [facility] DEPARTMENT OF | [address] | [place] [address] | | | PATHOLOGY | [address] | | | + + + + + | [facility] DEPARTMENT OF | [address] | [place] [address] | | | PATHOLOGY | [address] [...] | + + + + + | [facility] | [address] | [place] [address] | | | PATHOLOGY | [address] | | | + + + + + | [facility] | [address] | [place] [address] | | | PATHOLOGY | [address] [...] DEPARTMENT OF | [address] | [place] [address] | | | PATHOLOGY | [address] | | | + + + + + | [facility] | [address] | [place] [address] | | | PATHOLOGY | [address] [...] | + + + + + | [facility] | [address] | [place] [address] | | | LAB-MICRO | | | [...] + + + | [facility] | [address] | [place] [address] | | | LAB-MICRO | | | [...] | + + + + + | [facility] | [address] | [place] [address] | | | PATHOLOGY | [address] | | | + + + + + | [facility] | [address] | [place] [address] | | | PATHOLOGY | [address] [...] | + + + + + | [facility] DEPARTMENT OF | [address] | [place] [address] | | | PATHOLOGY | [address] | | | + + + + + | [facility] DEPARTMENT OF | [address] | [place] [address] | | | PATHOLOGY | [address] [...] | + + + + + | [facility] | [address] | [place] [address] | | | PATHOLOGY | [address] | | | + + + + + | [facility] | [address] [place] [address] | [place] [address] | | | PATHOLOGY | [address] [...] DEPARTMENT OF | [address] | [place] [address] | | | PATHOLOGY | [address] | | | + + + + + | [facility] DEPARTMENT | [address] | [place] [address] | | | PATHOLOGY | [address] | | | + + + + + MAGNESIUM, PLASMA (07/02/2002 11:30 PM PDT) + +-------+ + + + | Component | Value | Ref Range | Performed | Pathologist | | | | | At | Signature | + +-------+ + + + | MAGNESIUM,P | 2.5 | 1.8 - 2.5 mg/dL | [facility] | | | LASMA | | | [...] | + + + + + | [facility] DEPARTMENT OF | [address] | [place] [address] | | | PATHOLOGY | [address] | | | + + + + + | [facility] DEPARTMENT OF | [address] | [place] [address] | | | PATHOLOGY | [address] | | | + + + + + PHOSPHORUS, PLASMA (07/02/2002 11:30 PM PDT) + +-------+ + + + | Component | Value | Ref Range | Performed | Pathologist | | | | | At | Signature | + +-------+ + + + | PHOSPHORUS, | 4.6 | 2.4 - 4.7 mg/dL | [facility] | | | PLASMA | | | [...] | + + + + + | [facility] DEPARTMENT OF | [facility] | [place] [address] | | | PATHOLOGY | [address] | | | + + + + + | [facility] DEPARTMENT OF | [address] | [place] [address] | | | PATHOLOGY | [address] | | | + + + + + documented in this encounter Visit Diagnoses Not on filedocumented in this encounter"
--- OUTSIDE RECORDS SUMMARY | ~2019-02-03 | XMS | Encounter Summary ---
Demographics + + + | Address | [address] | | | [place] [address] | + + + | Home Phone | | + + + | Preferred Language | Unknown | + + + | Marital Status | | + + + | Temple Affiliation | 1041 | + + + | Race | Unknown | + + + | Ethnic Group | Unknown | + + + Author + + + | Author | [facility] | | | and [place] | + + + | Organization | [facility] | | [...] [place] | | | | | [address] | | + + + + + Care Team Providers + +------+ + | Care Automotive Sales Professional Name | Role | Phone | [...] + | 01/27/ | Telephone | [facility] | [place], | [place] | | 2013 | | CARDIOLOGY [address] | [place] [address] | | | | | [place], | [place], | | | | | [place] [address] | [place] [address] | | | | | [phone] | [phone] | | | | | | | [...] 2019 | Visit | | [address] [facility] | | | | | | [address] [place] | | | | | | [address] | | | | | | | | +--------+---------+ + + + documented as of this encounter Visit Diagnoses Not on filedocumented in this encounter"
--- OUTSIDE RECORDS SUMMARY | ~2019-02-03 | XMS | Encounter Summary ---
Demographics + + + | Address | [address] | | | [place] [address] | + + + | Home Phone | | + + + | Preferred Language | Unknown | + + + | Marital Status | | + + + | Catholic Affiliation | CAT | + + + [...] Team Providers + +------+ + | Care Mop Machine Operator Name | Role | Phone | + +------+ + | Bartolome Frederick DO | PCP | | + +------+ + Encounter Details +--------+ + + + + | Date | Type | Department | Care Team | Description | +--------+ + + + + | 01/28/ | Oyster Preparer | [facility] | Michael Durbin MD | S/P lumbar fusion | | 2019 | | Neurosurgery at 7th | [address] | (Primary Dx) | | | | [address] | [address] | | | | | [address] | [place] [address] | | | | | [place], [place] | [phone] | | | | | [address] | | | | | | [phone] | | | +--------+ + + + [...] [address] | | | | | | [place] [address] | | | | | | [phone] | | | | | | | [...] body heights are maintained. | | | Pekv-nd-iindceht spondylotic changes are again seen in the [...] identified.Vertebral | | body heights are maintained. Kmso-uy-bcmttnkd spondylotic changes are again seen in | [...] identified. | |Vertebral body heights are maintained. Gxux-ba-gcihbevw spondylotic changes are again seen in the [...] RADIOLOGY | [address] | [place] [address] | [phone] | | VOICE RECOGNITION | | | | + + + + + documented in this encounter Visit Diagnoses + + | Diagnosis | + + | S/P lumbar fusion - Primary Arthrodesis status | + + documented in this encounter"
--- OUTSIDE RECORDS SUMMARY | ~2019-02-03 | XMS | Encounter Summary ---
Demographics + + + | Address | [address] | | | [place] [address] | + + + | Home Phone [...] Team Providers + +------+ + | Care Seed Cleaner Operator Name | Role | Phone | [...] | | | | | [place] [address] | | | | | | [phone] | | | | | | | | +--------+---------+ + + + documented as of this encounter Visit Diagnoses Not on filedocumented in this encounter"
--- OUTSIDE RECORDS SUMMARY | ~2019-02-03 | XMS | Encounter Summary ---
Demographics + + + | Address | [address] | | | [place] [address] | + + + | Home Phone | | + + + | Preferred Language | Unknown | + + + | Marital Status | | + + + | Adventist Affiliation | 1041 | + + + | Race | Unknown | + + + | Ethnic Group | Unknown | + + + Author + + + | Author | [facility] | | | and [place] | + + + | Organization | [facility] | | | [...] [place] | | | | | [address] | | + + + + + Care Team Providers + +------+ + | Care Computer Systems Integrator Name | Role | Phone | + [...] Medication Refill | | 2017 | | [facility] | E, DO [address] | | | | | MEDICAL CL[facility] | [place], [place] | | | | | [address] [place], | [address] | | | | | [place] [address] | [phone] | | | | | [phone] | | | +--------+--------+ + + + [...] 2020 | Visit | | [address] [facility] | | | | | | [address] [place] | | | | | | [address] | | | | | | | | +--------+---------+ + + + documented as of this encounter Visit Diagnoses Not on filedocumented in this encounter
--- OUTSIDE RECORDS SUMMARY | ~2019-02-03 | XMS | Encounter Summary ---
Demographics + + + | Address | [address] | | | [place] [address] | + + + | Home Phone [...] + + + | Author | [facility] | + + + | Organization | [facility] | + + + | Address [...] Team Providers + +------+ + | Care Appliance Installer Name | Role | Phone | [...] [address] | | | | | | [place], [place] | | | | | | [address] | | | | | | [phone] | | | +--------+ + + + [...] 2020 | Visit | | [address] | | | | | | [address] | | | | | | [place] [address] | | | | | | [phone] | | | | | | | [...] | + + + + + | [facility] DEPARTMENT OF | [address] | [place] [address] | | | PATHOLOGY | [address] | | | + + + + + | [facility] | [address] | [place] [address] | | | PATHOLOGY | [address] [...] | + + + + + | [facility] DEPARTMENT OF | [address] | [place] [address] | | | PATHOLOGY | [address] | | | + + + + + | [facility] DEPARTMENT OF | [address] | [place] [address] | | | PATHOLOGY | [address] [...] | + + + + + | [facility] | [address] | [place] [address] | | | PATHOLOGY | [address] | | | + + + + + | [facility] | [address] | [place] [address] | | | PATHOLOGY | [address] [...] | + + + + + | [facility] DEPARTMENT OF | [address] | [place] [address] | | | PATHOLOGY | [address] | | | + + + + + | [facility] DEPARTMENT OF | [facility] | [place] [address] | | | PATHOLOGY | [address] [...] DEPARTMENT OF | [address] | [place] [address] | | | PATHOLOGY | [address] | | | + + + + + | [facility] DEPARTMENT OF | [address] | [place] [address] | | | PATHOLOGY | [address] [...] | + + + + + | [facility] DEPARTMENT OF | [address] | [place] [address] | | | PATHOLOGY | [address] | | | + + + + + | [facility] DEPARTMENT OF | [address] | [place] [address] | | | PATHOLOGY | [address] | | | + + + + + documented in this encounter Visit Diagnoses Not on filedocumented in this encounter"
--- OUTSIDE RECORDS SUMMARY | ~2019-02-03 | XMS | Encounter Summary ---
Demographics + + + | Address | [address] | | | [place] [address] | + + + | Home Phone | | + + + | Preferred Language | Unknown | + + + | Marital Status | | + + + | Mormonism Affiliation | CAT | + + + [...] Team Providers + +------+ + | Care Automobile Radiator Mechanic Name | Role | Phone | + [...] | | | | | [place] [address] | | | | | | [phone] | | | | | | | | +--------+---------+ + + + documented as of this encounter Visit Diagnoses Not on filedocumented in this encounter"
--- OUTSIDE RECORDS SUMMARY | ~2019-02-03 | XMS | Encounter Summary ---
Demographics + + + | Address | [address] | | | [place] [address] | + + + | Home Phone | | + + + | Preferred Language | Unknown | + + + | Marital Status | | + + + | Mandaeism Affiliation | 1041 | + + + | Race | Unknown | + + + | Ethnic Group | Unknown | + + + Author + + + | Author | [facility] | | | and [place] | + + + | Organization | [facility] | | | and [...] [place] | | | | | [address] | | + + + + + Care Team Providers + +------+ + | Care Precinct Captain Name | Role | Phone | + +------+ + | Bartolome Frederick DO | PCP | | + +------+ + Encounter Details +--------+ + + + + | Date | Type | Department | Care Team | Description | +--------+ + + + + | 07/17/ | Orders Only | [facility] | Conversion | | | 2017 | | NEPHROLOGY [place] | Transaction, | | | | | [address] | Provider Unknown | | | | | [address] [place], [place] | | | | | | [address] | (Fax) | | | | | [phone] | | | +--------+ + + + [...] [place] | | | | | | [address] | | | | | | (Fax) | | +--------+---------+ + + + documented as of this encounter Procedures + +--------+ + + + | Procedure Name | Priori | Date/Time | Associated Diagnosis | Comments | | | ty | | | | + +--------+ + + + | BASIC METABOLIC | Routin | 07/17/2016 | | Results for this | | PANEL | e | 12:45 PM | | procedure are in the | | | | PDT | | results section. | + +--------+ + + + documented in this encounter Results Basic Metabolic Panel (07/17/2016 12:45 PM PDT) + + + + + [...] + + + + | BUN | 30 (A) | 6 - 23 mg/dL | EXTERNAL | | | | | | LAB | | + + + + + + | Creatinine | 1.44 (A) | 0.70 - 1.25 | EXTERNAL | | | | | mg/dL | LAB | | + + + + + + | BUN/Creatin | 20.8 | 6.0 - 28.6 | EXTERNAL | [...] + + | K | 3.9 | 3.6 - 5.1 | EXTERNAL | | | | | mmol/L | LAB | | + + + + + + | Cl | 103 | 95 - 112 mmol/L | EXTERNAL | | | | | | LAB | | + + + + + + | CO2 | 28 | 19 - 31 mmol/L | EXTERNAL | | | | | | LAB | | + + + + + + | Anion Gap | 12.9 | 7 - 21 mmol/L | EXTERNAL | | | | | | LAB | | + + + + + + | Estimated | 49 | mg/dL | EXTERNAL | | | [...]
--- OUTSIDE RECORDS SUMMARY | ~2019-02-03 | XMS | Encounter Summary ---
Demographics + + + | Address | [address] | | | [place] [address] | + + + | Home Phone [...] | [address] | | | | | [facility] [place] | | | | | [address] | | + + + + + Care Team Providers + +------+ + | Care Human Resources Trainee Name | Role | Phone | + +------+ + PCP | Unavailable | + +------+ + Encounter Details +--------+ + + + + | Date | Type | Department | Care Team | Description | +--------+ + + + + | 05/27/ | Hospital | [facility] | Khai Ackerman | | | 2002 | Encounter | MED CTR XRAY [address] | [address] | | | | | [address] | | | | | | [place] [address] | | | | | | [phone] | | | +--------+ + + + [...] 2019 | Visit | | [address] [facility] | | | | | | [address] [place], [place] | | | | | | [address] | | | | | | | | +--------+---------+ + + + documented as of this encounter Visit Diagnoses Not on filedocumented in this encounter"
--- OUTSIDE RECORDS SUMMARY | ~2019-02-03 | XMS | Encounter Summary ---
Demographics + + + | Address | [address] | | | [place] [address] | + + + | Home Phone [...] Providers + +------+ + | Care Manager Inside Name | Role | Phone | + [...] Orders | Neurosurgery at 7th | [address] [facility] | | | | | [address] | [address] | | | | | [address] | [place], [place] | | | | | [place], [place] | [address] | | | | | [address] | [phone] | | | | | [phone] | | | +--------+ + + + [...] | Visit | | [address] [facility] [address] | | | | | | [place] [address] | | | | | | [place] [address] | | | | | | [phone] | | | | | | | | +--------+---------+ + + + documented as of this encounter Visit Diagnoses Not on filedocumented in this encounter"
--- OUTSIDE RECORDS SUMMARY | ~2019-02-03 | XMS | Encounter Summary ---
Demographics + + + | Address | [address] | | | [place] [address] | + + + | Home Phone | | + + + | Preferred Language | Unknown | + + + | Marital Status | | + + + | Temple Affiliation | 1041 | + + + | Race | Unknown | + + + | Ethnic Group | Unknown | + + + Author + + + | Author | [facility] | | | and [place] | + + + | Organization | [facility] | | [...] [address] | | | | | [place] | | | | | [address] | | + + + + + Care Team Providers + +------+ + | Care Greeter Guest Services Name | Role | Phone | + +------+ + PCP | Unavailable | + +------+ + Encounter Details +--------+ + + + + | Date | Type | Department | Care Team | Description | +--------+ + + + + | 12/17/ | Hospital | [facility] | | | | 2001 | Encounter | MED CTR GENERIC OP | | | | | | CONV DEPT [address] | | | | | | [place], | | | | | | [place] [address] | | | | | | [phone] | | | +--------+ + + + [...] [place] | | | | | | [address] | | | | | | | | +--------+---------+ + + + documented as of this encounter Visit Diagnoses Not on filedocumented in this encounter"
--- OUTSIDE RECORDS SUMMARY | ~2019-02-03 | XMS | Encounter Summary ---
Demographics + + + | Address | [address] | | | [place] [address] | + + + | Home Phone | | + + + | Preferred Language | Unknown | + + + | Marital Status | | + + + | Worship Affiliation | 1041 | + + + | Race | Unknown | + + + | Ethnic Group | Unknown | + + + Author + + + | Author | [facility] | | | and [place] | + + + | Organization | [facility] | | | [...] [address] | | | | | [address] | | + + + + + Care Team Providers + +------+ + | Care Slubber Hand Name | Role | Phone | + +------+ + | Bartolome Frederick DO | PCP | | + +------+ + Encounter Details +--------+ + + + + | Date | Type | Department | Care Team | Description | +--------+ + + + + | 07/17/ | Orders Only | [facility] | Conversion | | | 2017 | | NEPHROLOGY [place] | Transaction, | | | | | [address] | Provider Unknown | | | | | [address] [place], [place] | | | | | | [address] | (Fax) | | | | | [phone] | | | +--------+ + + + [...] [place] | | | | | | [address] | | | | | | (Fax) [...]
--- OUTSIDE RECORDS SUMMARY | ~2019-02-03 | XMS | Encounter Summary ---
Demographics + + + | Address | [address] | | | [place] [address] | + + + | Home Phone | | + + + | Preferred Language | Unknown | + + + | Marital Status | | + + + | Confucianism Affiliation | 1041 | + + + | Race | Unknown | + + + | Ethnic Group | Unknown | + + + Author + + + | Author | [facility] | | | and [place] | + + + | Organization | [facility] | | [...] | [address] | | | | | [address] | | | | | [address] | | + + + + + Care Team Providers + +------+ + | Care Passenger Car Upholsterer Apprentice Name | Role | Phone | + +------+ + PCP | Unavailable | + +------+ + Encounter Details +--------+ + + + + | Date | Type | Department | Care Team | Description | +--------+ + + + + | 09/20/ | [facility] | [facility] | Khai Ackerman | | | 2001 | Encounter | MED CTR XRAY [address] | [address] | | | | | [address] | | | | | | [place] [address] | | | | | | [phone] | | | +--------+ + + + [...] 2019 | Visit | | [address] [facility] [address] | | | | | | [address] [place], [place] | | | | | | [address] | | | | | | | | +--------+---------+ + + + documented as of this encounter Visit Diagnoses Not on filedocumented in this encounter"
--- OUTSIDE RECORDS SUMMARY | ~2019-02-03 | XMS | Encounter Summary ---
Demographics + + + | Address | [address] | | | [place] [address] | + + + | Home Phone [...] [place] | | | | | [address] | | + + + + + Care Team Providers + +------+ + | Care Can Reconditioner Name | Role | Phone | + [...] + | 09/11/ | Telephone | [facility] | Reji Mederos | Medication Question | | 2017 | | PHYSIATRY [address] | [address] | | | | | [employer], | [place], [place] | | | | | [place] [address] | [address] | | | | | [phone] | | | +--------+ + + + [...] 2019 | Visit | | [address] [facility] | | | | | | [address] [facility] | | | | | | [address] | | | | | | | [...]
--- OUTSIDE RECORDS SUMMARY | ~2019-02-03 | XMS | Encounter Summary ---
Demographics + + + | Address | [address] | | | [place] [address] | + + + | Home Phone [...] | [address] | | | | | [address] [place] | | | | | [address] | | + + + + + Care Team Providers + +------+ + | Care Manager Regional Sales Name | Role | Phone | + +------+ + PCP | Unavailable | + +------+ + Encounter Details +--------+ + + + + | Date | Type | Department | Care Team | Description | +--------+ + + + + | 03// | Hospital | [facility] | Onel Beth, | GIANT CELL ARTERITIS | | 2002 | Encounter | CONVERSION [address] | [address] | ([facility]) | | | | [address] | [address] [place], [place] | | | | | [place], [place] | [address] | | | | | [address] | | | | | | [phone] | | | +--------+ + + + [...] 2019 | Visit | | [address] [facility] | | | | | | [address] [place], [place] | | | | | | [address] | | | | | | | | +--------+---------+ + + + documented as of this encounter Visit Diagnoses + + | Diagnosis | + + | Giant cell arteritis (HCC) Giant cell arteritis | + + documented in this encounter"
--- OUTSIDE RECORDS SUMMARY | ~2019-02-03 | XMS | Encounter Summary ---
Demographics + + + | Address | [address] | | | [place] [address] | + + + | Home Phone [...] Team Providers + +------+ + | Care Sanitation Worker Name | Role | Phone | [...] | | [address] | [place], [place] | degenerative disc | | | | [address] | [address] | disease; Aortic | | | | [place], [place] | | valve stenosis, | | | | [address] | | etiology of cardiac | | | | [phone] | | valve disease | | | [...] times daily as needed (muscl e spasms). Dmeipbv-Sfycvxojb-Owpy oral tablet Take by mouth once daily. [...] 11/11/18 and then dose adjust per your welder pipe making No current facility-administered medications for this visit. [...] 5 C8 (Wrist Ext) 5 5 C8 (Batcher Operator) 5 5 T1 (Pinky Abd) 5 [...] concerns arise. Jeimy Mera PA-C [facility] [address] [place] [id number] Alida Martel MA - 12/05/2018 11:00 AM [...] [address] | | | | | | [place] [address] | | | | | | [phone] | | | | | | | [...]
--- OUTSIDE RECORDS SUMMARY | ~2019-02-03 | XMS | Encounter Summary ---
Demographics + + + | Address | [address] | | | [place] [address] | + + + | Home Phone [...] [place] | | | | | [address] | | + + + + + Care Team Providers + +------+ + | Care Armature Winder Name | Role | Phone | + +------+ + | Bartolome Frederick DO | PCP | | + +------+ + Encounter Details +--------+ + + + + | Date | Type | Department | Care Team | Description | +--------+ + + + + | 07/24/ | Orders Only | [facility] | Conversion | | | 2017 | | NEPHROLOGY [place] | Transaction, | | | | | [address] | Provider Unknown | | | | | [address] [place], [place] | | | | | | [address] | (Fax) | | | | | [phone] | | | +--------+ + + + [...] Visit | | [address] [facility] | | | | | | [address] [place] | | | | | | [address] | | | | | | (Fax) [...]
--- OUTSIDE RECORDS SUMMARY | ~2019-02-03 | XMS | Encounter Summary ---
Demographics + + + | Address | [address] | | | [place] [address] | + + + | Home Phone | | + + + | Preferred Language | Unknown | + + + | Marital Status | | + + + | Yarsanism Affiliation | 1041 | + + + | Race | Unknown | + + + | Ethnic Group | Unknown | + + + Author + + + | Author | [facility] | | | and [place] | + + + | Organization | [facility] | [...] [place] | | | | | [address] | | + + + + + Care Team Providers + +------+ + | Care Decorating And Assembly Supervisor Name | Role | Phone | [...] | DO [address] | [address], | | | | | requiring | [address] | [address] | | | | | more than 4 | [place], [place] | [place], | | | | | units of | [address] | [place] [address] | | | | | blood in 24 | Phone: | Phone: | | | | | hours, ICU, | [phone] | [phone] | | | | | or surgery | Fax: | Fax: | | | | | | [phone] | [phone] | +--------+ + + + + + [...] | | [address] [place], | [address] | 24 hours, ICU, or | | | | [place] [address] | [phone] | surgery (Primary | | | | [phone] | | Dx); Hypotension due | | [...] discuss recent imaging and labs done at [facility] Back Pain Bulging disk and bone [...] meals). Dispense: 120 tablet; Refill: 0 - Havularlbt-Mvktoty-Ruvcosqr; Take 1 capsule by mouth Daily as [...] the clinic today to re-establish care from [facility], and discuss recent hospi talization and back [...] numb. He now sees Dr Licona in [facility]. Dr. Licona was supposed to send recommendation [...] 20 mg by mouth 3 times daily. iqmngdipuu-ljraano-hbzxfaeq (FIORINAL) 50-325-40 mg per capsule Take 1 [...] discuss recent imaging and labs done at [facility]. Bulging disk and bone spurs, need [...] Visit | | [address] [place] | | | | | | [address] [facility] | | | | | | [address] | | | | | | | [...] + + | [place] | [address] | [place] [address] | [phone] | | [facility] | | | | | [...]
--- OUTSIDE RECORDS SUMMARY | ~2019-02-03 | XMS | Encounter Summary ---
Demographics + + + | Address | [address] | | | [place] [address] | + + + | Home Phone | | + + + | Preferred Language | Unknown | + + + | Marital Status | | + + + | Orthodox Affiliation | 1041 | + + + | Race | Unknown | + + + | Ethnic Group | Unknown | + + + Author + + + | Author | [facility] | | | and [place] | + + + | Organization | [facility] | | [...] [place] | | | | | [address] | | + + + + + Care Team Providers + +------+ + | Care Filter Assembler Name | Role | Phone | + +------+ + | Bartolome Frederick DO | PCP | | + +------+ + Encounter Details +--------+ + + + + | Date | Type | Department | Care Team | Description | +--------+ + + + + | 08/25/ | Orders Only | [facility] | Ismael Young MD | | | 2017 | | NEPHROLOGY [place] | [address] [place] | | | | | [address] [place] | [address] [place], [place] | | | | | [address] [place], [place] | [address] | | | | | [address] | | | | | | [phone] | | | +--------+ + + + [...] 2020 | Visit | | [address] [facility] | | | | | | [address] [place] | | | | | | [address] | | | | | | | [...]
--- OUTSIDE RECORDS SUMMARY | ~2019-02-03 | XMS | Encounter Summary ---
Demographics + + + | Address | [address] | | | [place] [address] | + + + | Home Phone [...] [place] | | | | | [address] | | + + + + + Care Team Providers + +------+ + | Care Drafter Geological Name | Role | Phone | + [...] Other (regarding | | 2019 | | [facility] | E, DO [address] | back surgery); Phone | | | | MEDICAL CLINIC [address] | [place] | Damian ([facility] to | | | | [address] [facility], | [address] | May) | | | | [place] [address] | [phone] | | | | | [phone] | | | +--------+ + + + [...] | Shots of liquor 0-1 | | [place]ip[place]y) | | | Standard drinks or | [...] | | [address] [facility] | | | | | | [address] [facility] | | | | | | [address] | | | | | | | | +--------+---------+ + + + documented as of this encounter Visit Diagnoses Not on filedocumented in this encounter"
--- OUTSIDE RECORDS SUMMARY | ~2019-02-03 | XMS | Encounter Summary ---
Demographics + + + | Address | [address] | | | [place] [address] | + + + | Home Phone [...] [address] | | | | | [facility] | | | | | [address] | | + + + + + Care Team Providers + +------+ + | Care Produce Team Member Name | Role | Phone | + +------+ + PCP | Unavailable | + +------+ + Encounter Details +--------+ + + + + | Date | Type | Department | Care Team | Description | +--------+ + + + + | 03/29/ | Hospital | [facility] | | | | 2011 | Encounter | MED CTR XRAY [address] | | | | | [address] | | | | | | [place] [address] | | | | | | [phone] | | | +--------+ + + + [...] 2020 | Visit | | [address] [facility] | | | | | | [address] [place] | | | | | | [address] | | | | | | | [...] Performed At | + + + | [facility] | [facility] | | [address] [facility] | [facility] | | | DIAG IMG | | CAROTID DUPLEX ULTRASOUND [facility] | | | [facility] IMAGING #: | | | SPRING FITTER HELPER: KEVYN REASON FOR EXAM: TRANSIENT VISION LOSS [...] Transcribed | | | Date/Time: 03/29/2011 15:04 Financial Services Officer: | | | <Electronically Signed by Luis Enrique Platt MD> 03/29/11 2149 | | + + + + + | Procedure Note | + + | Tino, Rad Conversion - 04/10/2013 11:50 AM [facility] | | Diagnostic Imaging Department | | [address] , [place] | | | | | | | | | | CAROTID DUPLEX ULTRASOUND | | [facility] | | | | IMAGING #: SPRING FITTER HELPER: KEVYN | | REASON FOR EXAM: TRANSIENT [...] | Transcribed Date/Time: 03/29/2011 15:04 | | Financial Services Officer: | | <Electronically Signed by Luis Enrique [...]
--- OUTSIDE RECORDS SUMMARY | ~2019-02-03 | XMS | Encounter Summary ---
Demographics + + + | Address | [address] | | | [place] [address] | + + + | Home Phone | | + + + | Preferred Language | Unknown | + + + | Marital Status | | + + + | Restorationist Affiliation | CAT | + + + | Race | White | + + + | Ethnic Group | Not or | + + + Author + + + | Author | [facility] | + + + | Organization | [facility] | + + + | Address | [...] Team Providers + +------+ + | Care Face Boss Name | Role | Phone | + +------+ + PCP | Unavailable | + +------+ + Encounter Details +--------+ + + + + | Date | Type | Department | Care Team | Description | +--------+ + + + + | 07/09/ | Documentati | Anesthesiology | Unknown . | | | 2002 | on | [address] | | | | | | [place], | | | | | | [place] [address] | | | +--------+ + + + [...] [address] | | | | | | [place] [address] | | | | | | [phone] | | | | | | | [...] + + documented in this encounter Results ANESTHESIA/SEDATION (07/09/2002 11:23 AM PDT) + + + | Narrative | Performed At | + + + | Ordered by an unspecified provider. | | + + + + + | Transcriptions | + + | 07/09/2002 11:23 AM PDT Anesthesia PostOp Report | | | | Patient: BASILIA CASTANEDA Med Rec: [id number] Sex M Bdate: 1950 | | Date/Time Data | | Entered Into [facility] | | Anesth PostOp | | Surgery Date [id number] 07/09/02 11:23 | | Anesthesiologist CARMITA WOLFF 07/09/02 11:23 | | Resident Anesthesiolog CODY BELLAMY 07/09/02 11:23 | | Complications | | None/None Reported YES 07/10/02 09:53 | | Outcomes Information | | Satisfied with care YES 07/10/02 09:53 | | Info obtained from PATIENT 07/10/02 09:53 | | Outcome of Anesthesia NO CHANGE IN HOSPITAL COURSE 07/10/02 09:53 | | | + + documented in this encounter Visit Diagnoses Not on filedocumented in this encounter"
--- OUTSIDE RECORDS SUMMARY | ~2019-02-03 | XMS | Encounter Summary ---
Demographics + + + | Address | [address] | | | [place] [address] | + + + | Home Phone [...] [place] | | | | | [address] | | + + + + + [...] | Results | | 2018 | | [facility] | DRUM ATTENDANT [address] | | | | | MEDICAL CLINIC 506 | [place] [address] | | | | | [address] [place], | [phone] | | | | | [place] [address] | | | | | | [phone] | | | +--------+ + + + [...] 2019 | Visit | | [address] [facility] | | | | | | [address] [place] | | | | | | [address] | | | | | | | | +--------+---------+ + + + documented as of this encounter Visit Diagnoses Not on filedocumented in this encounter
--- OUTSIDE RECORDS SUMMARY | ~2019-02-03 | XMS | Encounter Summary ---
Demographics + + + | Address | [address] | | | [place] [address] | + + + | Home Phone [...] Team Providers + +------+ + | Care Bench Lathe Operator Name | Role | Phone | [...] L2-L4 INTERBODY | | | | [address] [place], [place] | [address] | FUSION/POSTEROLATERA | | | | [address] | [place] [address] | L L2-4 FUSION | | | | | [phone] | STABILIZATION | | | | | [...] might be different fr om the original. [facility] discharge Summary Discharging Provider: Malik Milner MD [...] by neurosurgery and their discussion with patient's relay technician which was planned prior to the [...] and bridging post surgery with patient's primary relay technician Zack Jennings. Patient underwent above-noted procedure [...] bridging with Lovenox post surgery with patient's relay technician jonathan singleton. Patient will be discharged on Lovenox and Coumadin. Dose of Lovenox and Coumadin were disc ussed with the patient. He will follow-up with INR clinic close to his home and Deanna Ridley son will manage patient's INR. He will continue Lovenox until his INR is between 2.5-3.5. He will follow-up with his primary relay technician Dr. Jennings for further instructions regarding [...] on and then dose adjust per your relay technician What changed: how much to take additional instructions CONTINUE taking these medications ascorbic acid SR 1,000 mg Tab Take 500 mg by mouth once daily in the evening. atorvastatin 20 mg Tab Commonly known as: LIPITOR Take 20 mg by mouth once daily in the evening. Vnbbjpu-Iakqwffsn-Euzc Tab Commonly known as: OJSHWZW-JSQDXBTNE-HMDH Take by mouth once daily. Ferrous Sulfate [...] -No forward bending to the floor to pickle processor objects -Keep head above the level of [...] daily. IN R on Sunday at the [facility] with Deanna Quinn. Lovenox dose may [...] NOT RESTART THESE MEDICATIONS UNTIL CLEARED BY [facility] NEUROSURGERY. Activity: -Activity instructions: no strenuous exercise, no bending/twisting, lifting restricted to < 1/2 gallon of milk in weight. -No forward bending to the floor to pickle processor objects -Keep head above the level of [...] 10:45 AM Office Address: Dr. Michael Shelley [facility] Neuro[facility] [address], [address] [place] [address] [id number] INR Standing Status: Future Expected By: 11/11/18 Standing Exp. Date: 12/11/19 Basic Metabolic Set (Na, K, Cl, TCO2, Bun, Cr, Glu, Ca) Standing Status: Future Expected By: 11/11/18 Standing Exp. Date: 12/11/19 Follow Up: Future Appointments Provider Department Dept Phone Center 12/05/2018 11:00 AM Jaison Barber [facility] [phone] [facility] Neurosur Schedule the following appointment(s) when you get home Bartolome Frederick DO In 1 week. Specialty: Family Medicine Contact information [address] [facility] [place] [address] Michael Shelley MD In 3 weeks. Specialty: Neurological Surgery Contact information [address] [place] [address] [place] [id number] Wesley Jennings MD In 1 week. Specialty: Cardiovascular Diseases Contact information [address] [place] [facility] [address] Discharge Physical Exam: Last 24 hour min/max [...] 10:45 AM Office Address: Dr. Michael Shelley [facility] Neurosurgery Clinic [address], [address] [place] [address] Discharge Instr - Activity Jaison Barber PA-C - 11/07/2018 7:32 AM PDTActivity: -Activity instructions: no strenuous exercise, no bending/twisting, lifting restricted to < 1/2 gallon of milk in weight. -No forward bending to the floor to pickle processor objects -Keep head above the level of [...] daily. IN R on Sunday at the [facility] with Deanna Quinn. Lovenox dose may [...] NOT RESTART THESE MEDICATIONS UNTIL CLEARED BY [facility] NEUROSURGERY. Activity: -Activity instructions: no strenuous exercise, no bending/twisting, lifting restricted to < 1/2 gallon of milk in weight. -No forward bending to the floor to pickle processor objects -Keep head above the level of [...] 10:45 AM Office Address: Dr. Michael Shelley [facility] Neurosurgery Clinic [address], [address] [place] [address] AttachmentsThe following attachments cannot be sent through Care Everywhere.Lumbar Spinal F usion: Post-op (Sami)documented in this encounter Medications at Time of [...] | | 0 | | | | Hrehoux-Kyoxlsucj-Gw | daily. | | | | | [...] | | | | | | | relay technician | | | | | + [...] different fr om the original. SARAH Rai [facility] [address] [place] [address] NEUROSURGERY PROGRESS NOTE PATIENT NAME: Lupillo De [...] mg, 10-20 mg, intravenous, Q4H PRN, Jarred thaap MD, 10 mg at 11/06/18 1438 labetalol [...] deficits with short or group home memory. MOTOR EXAM: Motor strength is stable [...] He follows with Dane Quinn at the [facility] and he will need to see [...] to d/c home tomorrow James Jones MD [facility] Department of Neurological Grey Roll ManMotion Graphics Designer Maral Ibarra RN - 11/08/2018 10:19 AM PDTCase Management Initial Assessment Reason for Admission: S/P Minimally invasive L2-4 anterior and posterior lumbar fusion 03/26 Admitted From: Home Emergency Contact: Primary Emergency Contact: Ai De La Paz Relation: Spouse Tammie Leblanc / Daughter / [phone] (c) [phone] (h) Past Medical History: M40.295 (ICD-10-CM) - [...] anxious to be discharged. He lives in [place] and his daughter is he re from [place], [place], to provide transportation and needs to be back at work 11/11/18. Pat ient has his TLSO brace and 4WW. Anticipated Discharge Needs: To be determined. Assessment done by: Maral TYSON professor of floriculture Nicole Mullen RN - 11/07/2018 3:53 PM [...] 68 y.o. male with a PMH of [facility] MVR, CKD, who presented on for [...] 11/07/2018 9:25 AM PDT Michael Shelley MD [facility] [address] [place] [address] NEUROSURGERY PROGRESS NOTE PATIENT NAME: Lupillo De [...] deficits with short or group home memory. MOTOR EXAM: Motor strength is stable [...] pain who presented on 11/06/2018 [facility] invasive lumbar spinal fusion (L2-L4) with minimal EBL by Dr. Shelely, and in ICU post-op for monitoring and heparin bridging. He has previously been anticoagulated with cou madin and was bridged with lovenox prior to surgery, last dose on 11/05. On his arrival to [facility] he was hemodynamically stable and [...] baseline (recent 1.5), recheck in am -Received araine-op clindamycin and scheduled q6 Diet: regular DVT [...] personally and independently examined this pt and mtium42yxnvgmc caring for thi s patient to include [...] [address] | | | | | | [place] [address] | | | | | | [phone] | | | | | | | [...] [address] | [place] [address] | | | LAB | | | [...] [address] | [place] [address] | | | LAB | | | [...] MICHOACANO/YOSHI | [address] | [place] [address] | | | LAB | | | [...] | | [facility] | | | LAO | | | | | + +---------+ [...] TUJAN/YOSHI | [address] | [place] [address] | | | LAB | | | [...] | | Not Detected result for the ZOOM TV antimicrobial resistance gene | MICHOACANO/KHADRA | | [...] MICHOACANO/RICARDOO | [address] | [place] [address] | | | LAB | | | [...] | | | clusters (AA)Comment: | | [facility] | | | | This is [...] MICHOACANO/YOSHI | [address] | [place] [address] | | | LAB | | | [...] [place]/[place] | [address] | [place] [address] | | | LAB | | | [...] MICHOACANO/YOSHI | [address] | [place] [address] | | | LAB | | | [...] | | [facility] | | | LAO | | | | | + +---------+ [...] MICHOACANO/Y[place] | [address] | [place] [address] | | | LAB | | | [...] [place] | [address] | [place] [address] | | | LAB | | | [...] [address] | [place] [address] | | | LAB | | | [...] MICHOACANO/YOSHI | [address] | [place] [address] | | | LAB | | | [...] [address] | [place] [address] | | | LAB | | | [...] [place] | [address] | [place] [address] | | | LAB | | | [...] MICHOACANO/Y[place]HI | [address] | [place] [address] | | | LAB | | | [...] RADIOLOGY | [address] | [place] [address] | [phone] | | VOICE RECOGNITION | | | [...] TUALITY/[place] | [address] | [place] [address] | | | LAB | | | [...] [address] | [place] [address] | | | LAB | | | [...] [place] | [address] | [place] [address] | | | LAB | | | [...] | | [facility] | | | LAO | | | | | + +---------+ [...] [address] | [place] [address] | | | LAB | | | [...] MICHOACANO/YOSHI | [address] | [place] [address] | | | LAB | | | [...] MICHOACANO/YOSHI | [address] | [place] [address] | | | LAB | | | [...] ANDRESALITY/[place] | [address] | [place] [address] | | | LAB | | | [...] MICHOACANO/YOSHI | [address] | [place] [address] | | | LAB | | | [...] MICHOACANO/YOSHI | [address] | [place] [address] | | | LAB | | | [...] [address] | [place] [address] | | | LAB | | | [...] | | [facility] | | | LAO | | | | | + +---------+ [...] | + + + + + | [facility] | [address] | [place] [address] | | | LAB | | | [...] RADIOLOGY | [address] | [place] [address] | [phone] | + + + + + X-RAY [...] RADIOLOGY | [address] | [place] [address] | [phone] | + + + + + CARDIOLOGY [...]
--- OUTSIDE RECORDS SUMMARY | ~2019-02-03 | XMS | Encounter Summary ---
Demographics + + + | Address | [address] | | | [place] [address] | + + + | Home Phone [...] Team Providers + +------+ + | Care Plastics Production Machine Operator Name | Role | Phone [...] | | | | [address] | [place] [address] | | | | | [place], [place] | [phone] | | | | | [address] | | | | | | [phone] | | | +--------+ + + + [...] | 2020 | Visit | | [address] [facility] [address] | | | | | | [place] [address] | | | | | | [place] [address] | | | | | | [phone] | | | | | | | [...]
--- OUTSIDE RECORDS SUMMARY | ~2019-02-03 | XMS | Encounter Summary ---
Demographics + + + | Address | [address] | | | [place] [address] | + + + | Home Phone | | + + + | Preferred Language | Unknown | + + + | Marital Status | | + + + | Zoroastrianism Affiliation | CAT | + + + [...] Team Providers + +------+ + | Care Straightedge Worker Name | Role | Phone | + +------+ + | Bartolome Frederick DO | PCP | | + +------+ + Encounter Details +--------+ + + + + | Date | Type | Department | Care Team | Description | +--------+ + + + + | 11/28/ | Sanitation Worker Cleaning Machinery | [facility] | Michael Durbin MD | S/P lumbar fusion | | 2019 | | Neurosurgery at [address]th | [address] | (Primary Dx) | | | | [address] | [address] | | | | | [address] | [place] [address] | | | | | [place], [place] | [phone] | | | | | [address] | | | | | | [phone] | | | +--------+ + + + [...] [address] | | | | | | [place] [address] | | | | | | [phone] | | | | | | | [...] RADIOLOGY | [address] | [place] [address] | [phone] | | VOICE RECOGNITION | | | | + + + + + documented in this encounter Visit Diagnoses + + | Diagnosis | + + | S/P lumbar fusion - Primary Arthrodesis status | + + documented in this encounter"
--- OUTSIDE RECORDS SUMMARY | ~2019-02-03 | XMS | Encounter Summary ---
Demographics + + + | Address | [address] | | | [place] [address] | + + + | Home Phone | | + + + | Preferred Language | Unknown | + + + | Marital Status | | + + + | Cheondoism Affiliation | CAT | + + + [...] Team Providers + +------+ + | Care Soaker Name | Role | Phone | + [...] | 2019 | Visit | | [address] [facility] | | | | | | [address] | | | | | | [place] [address] | | | | | | [phone] | | | | | | | | +--------+---------+ + + + documented as of this encounter Visit Diagnoses Not on filedocumented in this encounter"
--- OUTSIDE RECORDS SUMMARY | ~2019-02-03 | XMS | Encounter Summary ---
Demographics + + + | Address | [address] | | | [place] [address] | + + + | Home Phone [...] Team Providers + +------+ + | Care Starch Crab Name | Role | Phone | + [...] | | | | [address] | [place] [address] | | | | | [place], [place] | [phone] | | | | | [address] | | | | | | [phone] | | | +--------+ + + + [...] | | | | | [place] [address] | | | | | | [phone] | | | | | | | | +--------+---------+ + + + documented as of this encounter Visit Diagnoses Not on filedocumented in this encounter"
--- OUTSIDE RECORDS SUMMARY | ~2019-02-03 | XMS | Encounter Summary ---
Demographics + + + | Address | [address] | | | [place] [address] | + + + | Home Phone [...] [place] | | | | | [address] | | + + + + + Care Team Providers + +------+ + | Care Shirt Presser Name | Role | Phone | + [...] + + | 07/20/ | Emergency | [facility] | Dileep Miner, | Posttraumatic | | 2014 | | [facility] EM[facility] | MD [address] | hematoma of left | | | | CENTER [address] | [facility] [place] | breast, initial | | | | [place], [place] | [place] [address] | encounter (Primary | | | | [address] | [phone] | Dx); | | | | [phone] | | Warfarin-induced | | | | [...] Care Everywhere.HEMATOMA (ENGLI SH)WARFARIN SODIUM ORAL TABLET (EGYPTIAN)documented in this encounter Medications at Time of [...] 2020 | Visit | | [address] [facility] | | | | | | [address] [place] | | | | | | [address] | | | | | | | [...] [address] | [place] | [phone] | | [facility] | | [address] | | | - LABORATORY | | [...] mL/min/1.73m2 | [place]na [place]YAS | | | ZIMBABWEAN | RATE,ESTIMATED | | MEDICAL | | | | mL/min/1.57r2Rozx than | | CENTER - | | [...] [address] | [place] | [phone] | | [facility] | | [address] | | | - LABORATORY | | [...] [address] | [place] | [phone] | | [facility] | | [address] | | | - LABORATORY | | [...]
--- OUTSIDE RECORDS SUMMARY | ~2019-02-03 | XMS | Encounter Summary ---
Demographics + + + | Address | [address] | | | [place] [address] | + + + | Home Phone [...] Team Providers + +------+ + | Care Paving Bed Maker Name | Role | Phone | [...] | | Assessment Clinic | [address] [place], | | | | | [address] | [place] [address] | | | | | [address] | | | | | | [place], [place] | | | | | | [address] | | | | | | [phone] | | | +--------+ + + + [...] | Visit | | [address] [facility] [address] | | | | | | [facility] [address] | | | | | | [place] [address] | | | | | | [phone] | | | | | | | | +--------+---------+ + + + documented as of this encounter Visit Diagnoses Not on filedocumented in this encounter"
--- OUTSIDE RECORDS SUMMARY | ~2019-02-03 | XMS | Encounter Summary ---
Demographics + + + | Address | [address] | | | [place] [address] | + + + | Home Phone | | + + + | Preferred Language | Unknown | + + + | Marital Status | | + + + | Episcopal Affiliation | CAT | + + + [...] Team Providers + +------+ + | Care Ophthalmologist Name | Role | Phone | + +------+ + | Bartolome Frederick DO | PCP | | + +------+ + Encounter Details +--------+ + + + + | Date | Type | Department | Care Team | Description | +--------+ + + + + | 11/04/ | [facility] | [facility] | Jaison Barber, | Hx of intermediate manager use | | 2019 | | Neurosurgery at [facility]th | PA-C [address] | of blood thinners | | | | [address] | [place], [place] | (Primary Dx) | | | | [address] | [address] | | | | | [place], [place] | | | | | | [address] | | | | | | [phone] | | | +--------+ + + + [...] | 2019 | Visit | | [address] [facility] [address] | | | | | | [facility] [address] | | | | | | [place] [address] | | | | | | [phone] | | | | | | | | +--------+---------+ + + + documented as of this encounter Visit Diagnoses + + | Diagnosis | + + | Hx of intermediate manager use of blood thinners - Primary 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
--- OUTSIDE RECORDS SUMMARY | ~2019-02-03 | XMS | Encounter Summary ---
Demographics + + + | Address | [address] | | | [place] [address] | + + + | Home Phone | | + + + | Preferred Language | Unknown | + + + | Marital Status | | + + + | Evangelical Affiliation | 1041 | + + + | Race | Unknown | + + + | Ethnic Group | Unknown | + + + Author + + + | Author | [facility] | | | and [place] | + + + | Organization | [facility] | | [...] [place] | | | | | [address] | | + + + + + Care Team Providers + +------+ + | Care Hotel Housekeeper Name | Role | Phone | + [...] + + | 10/10/ | Office | [facility] | Roxanne Patino, | Visit for annual | | 2012 | Visit | CARDIOLOGY [address] [facility] | health examination | | | | [place], | [place], | (Primary Dx); | | | | [place] [address] | [place] [address] | Palpitations; HTN | | | | [phone] | [phone] | (hypertension); H/O | | | | [...] had a left knee arthroscopy done in [place], [place]. He has had a lef t [...] by mouth every 8 hours as needed lfmqzjtchg-mqoesoelmlvjz-ghatmcra (ESGIC PLUS) per tablet Active One tablet [...] kg /m2 ECG: Normal sinus rhythm, septal OH age indeterminate. No results found for this [...] Status post mechanical mitral valve replacement at [facility] in [place], [place], on . B. Patient reports transient [...] Patient is in a class II of [place] [employer] functional class. 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 B. A [...] made to ensure accuracy; however, inadvertent computerized sprinkling truck driver errors may be pre sent. documented in this encounter Plan of Treatment +--------+---------+ + + + | Date | Type | Specialty | Care Team | Description | +--------+---------+ + + + | 02/19/ | Office | Nephrology | Ismael Young MD | | | 2019 | Visit | | [address] [facility] | | | | | | [address] [place], [place] | | | | | | [address] | | | | | | | [...]
--- OUTSIDE RECORDS SUMMARY | ~2019-02-03 | XMS | Encounter Summary ---
Demographics + + + | Address | [address] | | | [place] [address] | + + + | Home Phone | | + + + | Preferred Language | Unknown | + + + | Marital Status | | + + + | Rastafarian Affiliation | CAT | + + + [...] Team Providers + +------+ + | Care Infectious Waste Technician Name | Role | Phone [...] | | | | | | [place] [address] | | | | | | [phone] | | | +--------+ + + + [...] | | 0 | | | | Hsadjun-Tnnekxoyn-En | daily. | | | | | [...] 2020 | Visit | | [address] [facility] [address] | | | | | | [address] | | | | | | [place] [address] | | | | | | [phone] | | | | | | | [...] RADIOLOGY | [address] | [place] [address] | [phone] | | VOICE RECOGNITION | | | [...] Note | + ------+ | Service Account, YouTube Res In Interface - 09/13/2018 11:52 AM [...] [address] | [place] [address] | [phone] | | VOICE RECOGNITION | | | | + + + + + documented in this encounter Visit Diagnoses + + | Diagnosis | + + | Lumbar spondylosis Lumbosacral spondylosis without myelopathy | + + documented in this encounter"
--- OUTSIDE RECORDS SUMMARY | ~2019-02-03 | XMS | Encounter Summary ---
Demographics + + + | Address | [address] | | | [place] [address] | + + + | Home Phone | | + + + | Preferred Language | Unknown | + + + | Marital Status | | + + + | Moravian Affiliation | CAT | + + + | Race | White | + + + | Ethnic Group | Not or | + + + Author + + + | Author | [facility] | + + + | Organization | [facility] | + + + | [...] Team Providers + +------+ + | Care Graphic Engineer Name | Role | Phone | [...] | | | | | [place], | | | | | | [place] [address] | | | +--------+ + + + [...] | | | | | | [place] [address] | | | | | | [phone] | | | | | | | [...] | | Patient: BASILIA CASTANEDA Med Rec: [id number] Sex M Bdate: 1950 | | Date/Time Data | | Entered Into [facility] | | Anesth PostOp | | Surgery Date [id number] 07/09/02 11:23 | | Anesthesiologist CARMITA WOLFF [...]
--- OUTSIDE RECORDS SUMMARY | ~2019-02-03 | XMS | Encounter Summary ---
Demographics + + + | Address | [address] | | | [place] [address] | + + + | Home Phone [...] Team Providers + +------+ + | Care Door Manager Name | Role | Phone | [...] | | | | [address] | [place] [address] | | | | | [place], [place] | [phone] | | | | | [address] | | | | | | [phone] | | | +--------+ + + + [...] 04/30/ | Office | Neurological Surgery | Mihcael Durbin MD | | | 2020 | Visit | | [address] | | | | | | [address] | | | | | | [place] [address] | | | | | | [phone] | | | | | | | | +--------+---------+ + + + documented as of this encounter Visit Diagnoses + + | Diagnosis | + + | S/P lumbar fusion - Primary Arthrodesis status | + + documented in this encounter"
--- OUTSIDE RECORDS SUMMARY | ~2019-02-03 | XMS | Encounter Summary ---
Demographics + + + | Address | [address] | | | [place] [address] | + + + | Home Phone | | + + + | Preferred Language | Unknown | + + + | Marital Status | | + + + | Mandaeism Affiliation | 1041 | + + + | Race | Unknown | + + + | Ethnic Group | Unknown | + + + Author + + + | Author | [facility] | | | and [place] | + + + | Organization | [facility] | | | [...] [place] | | | | | [address] | | + + + + + Care Team Providers + +------+ + | Care Hand Glass Cutter Name | Role | Phone | + +------+ + | Bartolome Frederick DO | PCP | | + +------+ + Encounter Details +--------+ + + + + | Date | Type | Department | Care Team | Description | +--------+ + + + + | 11/21/ | Orders Only | [place] | Contreras, Swetha, | Chronic | | 2018 | | [facility] | RANCH COOK [address] | nonintractable | | | | [facility] [address] | [place] [address] | headache, | | | [address] [place], | [phone] | unspecified headache | | | | [place] [address] | | type (Primary Dx) | | | | [phone] | | | +--------+ + + + [...] Visit | | [address] [facility] | | | | | | [address] [place] | | | | | | [address] | | | | | | | | +--------+---------+ + + + documented as of this encounter Visit Diagnoses + + | Diagnosis | + + | Chronic nonintractable headache, unspecified headache type - Primary | + + documented in this encounter
[~2019-02-03 11:24] MED LIST changes: +FERROUS SULFAT325 MG PO; +FIORINAL 50-321 EACH PO; +GABAPENTIN600 MG PO; +HYDROMORPHONE HC4 MG PO; +MIRALAX17 GM PO; +OXYCODONE HCL5 MG PO; +PROTONIX40 MG PO; +VERELAN360 MG PO; +VITAMIN C500 M4 PO
--- OUTSIDE RECORDS SUMMARY | 2019-02-03 11:26 | XMS ---
PreManage Notification: BASILIA CASTANEDA Security [employer] Tester Events No recent Security Events currently on file CRITERIA MET - PDMP CARE PROVIDERS Lindsay Reid PA-C Treatment Current PHONE: Unknown Vanesa has no Care Guidelines for this patient. [facility] VISIT COUNT (12 MO.) 1 DANIE Andrews TOTAL 1 NOTE: Visits indicate total known visits. ED/UCC VISIT TRACKING (12 MO.) 02/03/2019 11:25 [facility] [place] TYPE: Emergency COMPLAINT: - HEAD INJ FROM FALL INPATIENT VISIT TRACKING (12 MO.) 11/06/2018 05:51 [facility] [place] TYPE: Internal Medicine DIAGNOSES: . Radiculopathy, lumbar region . Spinal stenosis, lumbar region without neurogenic xu . Spondylolisthesis, lumbar region . Other intervertebral disc degeneration, lumbar region . 1 Chronic kidney disease, stage 3 (moderate) . Spondylosis w/o myelopathy or radiculopathy, lumbar region . Unspecified kyphosis, site unspecified . Presence of prosthetic heart valve [id number]
== END 2019-02-03 17:43 | disposition home or self-care (01) ==
LOC: ED 11:24
DX: S06.0X1A Concussion with loss of consciousness of 30 minutes or less, initial encounter (principal); S00.81XA Abrasion of other part of head, initial encounter; N17.9 Acute kidney failure, unspecified; E86.0 Dehydration; I10 Essential (primary) hypertension; Z88.5 Allergy status to narcotic agent; Z88.0 Allergy status to penicillin; Z79.899 Other long term (current) drug therapy; Z79.01 Long term (current) use of anticoagulants; W22.8XXA Striking against or struck by other objects, initial encounter
CPT/HCPCS: 36415; 70450; 71046; 80053; 81001; 85025; 85610; 96360; 99284-25; J7030

== ENCOUNTER 2020-01-12 11:45 | Day surgery (SDC) | payer MEDICARE, OTHER ==
[~2020-01-12] VITALS: Ht 177.8 cm; Wt 97.7 kg
[2020-01-12] MEDS ORDERED: TIZANIDINE HCL4 M1 PO (12:04)
[2020-01-12] MEDS ORDERED: LOSARTAN POTAS100 MG PO (12:04)
[2020-01-12] MEDS ORDERED: VITAMIN B-121000 MC3 PO (12:04)
[2020-01-12] MEDS ORDERED: VERAPAMIL ER180 MG PO (12:05)
--- NOTE | 2020-01-12 13:13 | NUR ---
BLOCK NOTE ASSISTED BUSINESS PROGRAMMER WITH NERVE BLOCK. PT TOLERATES PROCEDURE WELL. COAGULATION STUDIES SENT TO LAB PRIOR TO BLOCK BEING DONE PER BUSINESS PROGRAMMER
[2020-01-12] MEDS ORDERED: HYDROCODON-ACE1 EA11 PO (14:40)
--- NOTE | 2020-01-12 14:52 | NUR ---
01/12/20 1452 Sarahi Carrasquillo 1435 PT ARRIVED TO PACU ON 6L VIA MASK, RESP EVEN AND UNLABORED. VSS. PT ASLEEP AND SMALL AMOUNT OF SNORING NOTED. 1440 PT WOKE TO TACTILE STIMULI AND DENIES PAIN, PT EASILY FALLS BACK TO SLEEP. PT WAS REORIENTED TO PACU. 3 LAP SITE TO SHOULDER AND POSTERIOR SITE REINFORCED WITH OPSITE DUE TO SMALL AMOUNT OF DRAINAGE AND DRESSING LIFTING.
--- NOTE | 2020-01-12 15:26 | NUR ---
JELLO AND ICED WATER GIVEN. PATIENT IS SITTING UP IN BED, EATING AND DRINKING AND HE TOLERATES THAT WELL. PATIENT'S FAMILY IS AT THE BEDSIDE. CALL LIGHT IS WITHIN REACH.
--- NOTE | 2020-01-12 16:58 | NUR ---
LE 1645: PATIENT IS UP TO THE BATHROOM WITH MY STANDBY. HE VOIDS AND DISCHARGE INSTRUCTIONS ARE GIVEN TO HIM IN THE PRESENCE OF HIS SPOUSE. BOTH VERBALIZE UNDERSTANDING. CRYO CUFF AND SHOULDER IMMOBILIZER DEMONSTRATION IS GIVEN AND PATIENT AND SPOUSE BOTH VERBALIZE UNDERSTANDING OF THIS. PATIENT IS DRESSED WITH MY ASSISTANCE. HE TRANSFERS HIMSELF TO THE WHEELCHAIR AND THEN PERSONAL VEHICLE AND TOLERATES THAT WELL.
--- NOTE | 2020-01-13 08:03 | [place] ---
[facility] [address] [place], [place] [address] Signed DATE OF OPERATION: 01/12/2020 SURGEON: Manpreet Cruz MD PREOPERATIVE DIAGNOSIS: Rotator cuff tear, left shoulder. POSTOPERATIVE DIAGNOSIS: Rotator cuff tear, left shoulder. PROCEDURE PERFORMED: Left shoulder arthroscopy with rotator cuff repair. FILTERATION OPERATOR: None. ANESTHESIA: General. ESTIMATED BLOOD LOSS: Minimal. IMPLANTS: One 4.75 SwiveLock and FiberTape. BRIEF HISTORY: Luis Enrique is a 69-year-old gentleman with pain in his shoulder. MRI was consistent with rotator cuff tear. Risks and benefits of operative treatment discussed with him and he elected to proceed. DESCRIPTION OF PROCEDURE: Once consent was obtained, he was taken to the operating room. After adequate anesthesia, he was placed in a beach chair position. All downside pressure points well padded. The left shoulder was prepped and draped in a standard sterile fashion. The shoulder was injected with 15 mL 0.25% Marcaine with epinephrine as was subacromial space. Standard posterior portal was made, scope was introduced into the shoulder. 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 The biceps was noted to be absent. The labrum was frayed, but intact. Undersurface of the rotator cuff showed a full-thickness 1 cm tear with no retraction. It was easily Electronically Signed By: MANPREET CRUZ MD 01/13/20 0803 PATIENT NAME: BASILIA CASTANEDA OPERATIVE REPORT DATE OF : 52 REPORT #: [id number] PHYSICIAN: MANPREET CRUZ MD PCP: JOSE DE JESUS ALVARADO DO REPORT IS CONFIDENTIAL AND NOT TO BE RELEASED WITHOUT AUTHORIZATION [facility] [address] [place], [place] [address] Signed reducible. The subacromial space showed minimal bursitis. Standard anterior portal was made using an outside-in technique and the synovitis and frayed tissue was all removed using the shaver and the Mitek VAPR. The margin of the rotator cuff was then cleared using the biter. The scope was then withdrawn and placed in subacromial space. The bursa was cleared and the base of the rotator cuff was cleared soft tissue overlying the tuberosity. This was then excoriated using the shaver and good bleeding bony surface was obtained. A FiberTape was then placed in an inverted mattress configuration through the rotator cuff and the 4.75 anchor was placed in the tuberosity and impacted with drawing the rotator cuff down to a good position, it was free of tension. The suture ends were cut. The shoulder was removed through range of motion and that was stable. The scope was withdrawn. Portals were closed with 3-0 nylon and dressed with Acticoat and OpSite. He tolerated the procedure well. All sponge, needle, and instrument counts were correct. Manpreet Cruz MD BA/BILL /[id number] Copies: ~ Electronically Signed By: MANPREET CRUZ MD 01/13/20 0803 PATIENT NAME: BASILIA CASTANEDA OPERATIVE REPORT DATE OF : 52 REPORT #: [id number] PHYSICIAN: MANPREET CRUZ MD PCP: JOSE DE JESUS ALVARADO DO REPORT IS CONFIDENTIAL AND NOT TO BE RELEASED WITHOUT AUTHORIZATION
== END 2020-01-12 16:55 | disposition home or self-care (01) ==
LOC: DS 11:45
PROVIDERS: ATTEND Specialist
PROC: 3E0T33Z Introduction of Anti-inflammatory into Peripheral Nerves and Plexi, Percutaneous Approach (ICD-10-PCS; 2020-01-12)
PROC: 0LQ24ZZ Repair Left Shoulder Tendon, Percutaneous Endoscopic Approach (ICD-10-PCS; 2020-01-12)
PROC: 3E0T3BZ Introduction of Anesthetic Agent into Peripheral Nerves and Plexi, Percutaneous Approach (ICD-10-PCS; principal; 2020-01-12 13:00)
DX: M75.122 Complete rotator cuff tear or rupture of left shoulder, not specified as traumatic (principal); G89.18 Other acute postprocedural pain; M94.212 Chondromalacia, left shoulder; M65.812 Other synovitis and tenosynovitis, left shoulder; S43.492A Other sprain of left shoulder joint, initial encounter; I12.9 Hypertensive chronic kidney disease with stage 1 through stage 4 chronic kidney disease, or unspecified chronic kidney disease; N18.2 Chronic kidney disease, stage 2 (mild); K21.9 Gastro-esophageal reflux disease without esophagitis; M19.90 Unspecified osteoarthritis, unspecified site; X58.XXXA Exposure to other specified factors, initial encounter; Z79.899 Other long term (current) drug therapy; Z79.01 Long term (current) use of anticoagulants; Z88.5 Allergy status to narcotic agent; Z88.0 Allergy status to penicillin; Z96.652 Presence of left artificial knee joint; Z87.891 Personal history of nicotine dependence
CPT/HCPCS: 00450; 64415; 76942; 85025; 85610; 85730; C1713; J0690; J1100; J2001; J2250; J2405; J2704; J2795; J3010; J7121

== ENCOUNTER 2020-09-06 08:50 | Inpatient (IN) | payer MEDICARE, OTHER ==
[~2020-09-06] VITALS: Ht 177.8 cm; Wt 98.7 kg
[~2020-09-06 08:50] MED LIST changes: -COUMADIN2.5 MG PO; -COUMADIN5 MG PO; -GABAPENTIN600 MG PO; +HYDROCODON-ACE1 EA11 PO; +LIPITOR20 MG PO; -LIPITOR80 MG PO; +NEURONTIN300 MG PO; +VERAPAMIL ER180 MG PO; +VITAMIN B-121000 MC3 PO; +WARFARIN SODIU2.5 MG PO; +ZANAFLEX4 MG PO
--- NOTE | 2020-09-06 16:45 | NUR ---
THIS RN IN PTS ROOM DUE TO PT REQUESTING ASSISTANCE WITH THE IV DUE TO IT BEEPING. PT THEN REQUESTING TO GET UP TO THE RESTROOM. OT ALSO REQUESTING A PAIN MED. THIS RN PROVIDED PT WITH 15MG OF TORADOL FOR PAIN 7/10. PTS AT BEDSIDE AT THIS TIME
--- NOTE | 2020-09-06 17:40 | NUR ---
THIS RN IN PTS ROOM TO GIVE PT MORE PAIN MEDS. 0.5MG DILUADID PROVIDED TO PT FOR A PAIN THAT WAS NOT TOUCHED BY THE TORADOL.
--- NOTE | 2020-09-06 18:16 | NUR ---
PATIENT IN BED WATCHING TV, AT BEDSIDE. VITALS AND I&O'S CHARTED. CALL LIGHT IN REACH. NO FURTHER NEEDS AT THIS TIME.
--- NOTE | 2020-09-06 19:42 | NUR ---
BEDSIDE REPORT RECEIVED FROM TRINH BUTTS. pt SITTING UP IN BED, RATES PAIN 5/10 WITH MOVEMENT IN ABDOMEN. REQUESTING PRN PAIN MEDICATION AVAILABLE AND NIGHTLY MEDICATIONS. HR 57-60S ON TELE 10, IRREGULAR. IN ROOM.
--- NOTE | 2020-09-06 20:28 | NUR ---
IN pt ROOM FOR SCHEDULED MEDICATION ADMINISTRATION. VSS. IV SITE FLUSHED WNL, GOOD BLOOD RETURN. pt RATES PAIN 5/10 IN ABDOMEN. BOWEL TONES ACTIVE, ABD NON-TENDER WITH PALPATION, ABD SOFT. PRN PAIN MEDICATION ADMINISTERED IV. IV ANTIBIOTIC NOW INFUSING ORDERED. pt UP TO RESTROOM FOR FORMED BM AND UNMEASURED VOID. VERBALIZES UNDERSTANDING TO VOID IN URINAL ABLE. ICE WATER PROVIDED. CALL LIGHT WITHIN REACH.
--- NOTE | 2020-09-06 22:12 | NUR ---
pt SLEEPING, AWAKENS TO VOICE. DENIES PAIN AT REST. SCHEDULED PAIN MEDICATION ADMINISTERED. IV MEDICATION ADMINISTERED, EDUCATION PROVIDED. CALL LIGHT IN REACH. pt DENIES ANY NEEDS AT THIS TIME.
--- NOTE | 2020-09-07 01:01 | NUR ---
pt RESTING IN BED, HR IRREGULAR 43-52 ON TELE 10.
--- NOTE | 2020-09-07 01:35 | NUR ---
pt SLEEPING, AWAKENS TO VOICE AND FALLS BACK TO SLEEP, SNORING. VSS. pt DENIES PAIN AT REST. ASSESSMENT COMPLETE. IV ANTIBIOTIC INFUSING WNL ORDERED. CALL LIGHT WITHIN REACH.
--- NOTE | 2020-09-07 03:30 | NUR ---
CHECKED ON pt. APPEARS TO BE SLEEPING, LYING IN BED WITH EYES CLOSED, SNORING. LIGHTS OFF IN ROOM.
--- NOTE | 2020-09-07 05:55 | NUR ---
pt SLEEPING, AWAKENS TO VOICE. pt DENIES PAIN AT REST. VSS. DENIES TOILETING NEEDS, STATES "I WILL GET UP TO PEE IN A WHILE". IVF INFUSING WNL ORDERED. SCHEDULED MEDICATIONS ADMINISTERED. CALL LIGHT IN REACH.
--- NOTE | 2020-09-07 07:15 | NUR ---
this rn received report from edson zimmerman. pt appears to be resting at this time with respirations noted and call light within reach.
--- NOTE | 2020-09-07 07:25 | NUR ---
this rn received a critcal lab value. this rn notified . no new orders at this time but states that he will call back after a bit.
--- NOTE | 2020-09-07 08:30 | NUR ---
this rn in pts room to give pt his morning meds and do morning assessment. pt appears to be comfortable in the bed. pt states that his pain is mild when sitting up now, pt rates his pain 1/10 but has no other concerns this am.
--- NOTE | 2020-09-07 09:20 | NUR ---
Pt lives in [place] in a 1 story home with his . He does not use DME and states he does his yard work without problem. He is re- tired. is Ai. Dr Frederick is his pcp, [facility]. Denies needs, will go home with his when cleared medically by Dr. Mini sim, will follow up with Dr. Frederick in [facility] when needed.
--- NOTE | 2020-09-07 09:28 | NUR ---
PATIENT IN BED RESTING. PATIENT WANTS TO SHOWER WHEN GETS HERE. FRESH WATER GIVEN. VITALS AND I&O'S CHARTED. CALL LIGHT IN REACH. NO FURTHER NEEDS A TTHIS TIME.
--- NOTE | 2020-09-07 12:25 | NUR ---
This RN assumes care of this patient at this time. Pt sitting up in bed chatting with who is at bedside. IVF infusing WNL, fresh water provided. No other needs at this time, will continue plan of care.
[2020-09-07] MEDS ORDERED: IRON325 M1 PO (12:37)
[2020-09-07] MEDS ORDERED: VITAMIN B-121000 MCG PO (13:23)
--- NOTE | 2020-09-07 13:23 | NUR ---
MED REC COMPLETE
--- NOTE | 2020-09-07 14:20 | NUR ---
Scheduled medications administered, assessment complete. This RN thoroughly educated patient regarding new medications, pt verbalizes understanding and has no questions. IVF infusing WNL. Lung sounds clear. HR irregular. Updated regarding plan of care, pt agreeable. No needs at this time, call light in reach.
--- NOTE | 2020-09-07 17:21 | NUR ---
PT SITTING UP IN BED. IN ROOM. CALL LIGHT WITHIN REACH. NO FURTHER NEEDS AT THIS TIME.
--- NOTE | 2020-09-07 18:10 | NUR ---
component lab tech informs this RN that patient stating feeling hot and flushed, gown changed and fan provided, will continue to monitor pt after vitamin K administration.
--- NOTE | 2020-09-07 19:30 | NUR ---
BEDSIDE REPORT RECEIVED FROM TRINH CONTRERAS. pt RESTING IN BED, RATES PAIN 4/10 IN ABDOMEN, REQUESTING PAIN MEDICATION. PRN HYDROMORPHONE ADMINISTERED AT THIS TIME. pt NOW SITTING UP AT SIDE OF BED. STATES "I JUST FEEL KIND OF CRUMMY LIKE THAT FOOD WAS A TON OF BRICKS". pt DENIES NAUSEA. CALL LIGHT WITHIN REACH. NO ADDITIONAL NEEDS AT THIS TIME.
--- NOTE | 2020-09-07 21:13 | NUR ---
IN pt ROOM FOR SCHEDULED MEDICATION ADMINISTRATION. pt AWAKE, RATES PAIN 1/10 IN ABDOMEN. SCHEDULED TYLENOL ADMINISTERED AT THIS TIME. BOWEL TONES ACTIVE, ABD SOFT, NON-TENDER WITH PALPATION. IV SITE FLUSHED WITH GOOD BLOOD RETURN, IVF INFUSING ORDERED. pt DENIES ANY NAUSEA. URINE EMPTIED FROM URINAL, pt REPORTS FORMED BM. LIGHTS OFF IN ROOM. ICE WATER IN REACH. ROOM NOTED AT 73 DEGREES DESPITE THERMOSTAT AT 67 DEGREES, pt WARM, OFFERED TO SWITCH ROOMS, pt DENIES. BLANKETS TURNED DOWN, SHEET ONLY IN PLACE. FAN IN ROOM. CALL LIGHT IN REACH.
--- NOTE | 2020-09-07 22:34 | NUR ---
CHECKED ON pt. RESTING IN BED, IV PUMP ALARMING, DISTAL OCCLUSION. NOW INFUSING WNL. pt STATES "YOU MIGHT HAVE TO TIE MY LEFT ARM DOWN". NO REQUESTS AT THIS TIME.
--- NOTE | 2020-09-08 00:38 | NUR ---
CHECKED ON pt. RESTING IN BED WITH EYES CLOSED, BREATHING UNLABORED. LIGHTS OFF IN ROOM. NO DISTRESS NOTED.
--- NOTE | 2020-09-08 03:30 | NUR ---
CHECKED ON pt. RESTING ON LEFT SIDE. BREATHING UNLABORED. LIGHTS OFF IN ROOM.
--- NOTE | 2020-09-08 05:54 | NUR ---
pt AWAKE AFTER LAB DRAW. VSS. SCHEDULED MEDICATIONS ADMINISTERED. ASSESSMENT COMPLETE. pt DENIES ANY PAIN. BOWEL TONES ACTIVE, ABD SOFT, NON-TENDER WITH PALPATION. IV SITE WITH BRISK BLOOD RETURN, FLUSHED WNL. NEW BAG IVF INFUSING ORDERED. CALL LIGHT WITHIN REACH. ICE WATER REFILLED. NO ADDITIONAL NEEDS.
--- NOTE | 2020-09-08 07:05 | NUR ---
Report received from Kimi TSANG. Pt resting in bed, no needs identified at this time, will continue plan of care.
--- NOTE | 2020-09-08 08:45 | NUR ---
Scheduled medications administered, assessment complete. Pt finished with shower, saline locked. States having no pain or needs. Reports having some diarrhea this morning, voiding quantity sufficient. [facility].
--- NOTE | 2020-09-08 09:45 | NUR ---
It was my pleasure to meet with Yaron this morning and discuss his care in the hospital. Yaron states: "My care has been very good. I have no complaints whatsoever. These kids have bent over backwards for me. They are right here for me. You have some very good staff here. Amanda has done very good taking care of me, and Kimi is a sweetheart, she is a very good nurse. The aides have also been very good. My care has been excellent. When I leave please tell everyone thank you for me." Yaron also expressed appreciation for the care that he received in the emergency department, and he stated that he had been talking to Dr. Anderson about his questions/concerns, and felt like Dr. Montes was explaining things to him. He also answered in the affirmative when asked if his medications, and there side effects were being explained to him.
--- NOTE | 2020-09-08 10:05 | NUR ---
PATIENT SITTING AT SIDE OF BED VISITING WITH . VITALS AND I&OS CHARTED. LINENS CHANGED. CALL LIGHT IN REACH
[2020-09-08] MEDS ORDERED: CIPROFLOXACIN500 MG PO (10:59)
[2020-09-08] MEDS ORDERED: METRONIDAZOLE250 MG PO (11:00)
[2020-09-08] MEDS ORDERED: ACETAMINOPHEN500 MG PO (11:00)
[2020-09-08] MEDS ORDERED: PANTOPRAZOLE SO40 MG PO (11:01)
[2020-09-08] MEDS ORDERED: DELZICOL400 M1 PO (11:02)
[2020-09-08] MEDS ORDERED: PREDNISONE10 MG PO (11:05)
--- NOTE | 2020-09-08 11:10 | NUR ---
No change in dc plan. Pt may stay 2-[address] Davalos.
--- NOTE | 2020-09-08 11:41 | HP ---
[facility] [address] [place], [place] [address] Signed ADMISSION DATE: 09/06/2020 REASON FOR ADMISSION: Probable new onset terminal ileitis and cecitis. HISTORY: This 70-year-old white man is the of Ai Castaneda, a former patient of mine for breast cancer treatment. He has had 4 to 5 days of increasing right lower abdominal pain. He presented to the emergency room and was evaluated by Dr. Amor Young with findings highly suggestive of appendicitis. Evaluation including CT scan showed a normal appendix, but marked inflammation of the cecum and terminal ileum, consistent with new onset inflammatory bowel disease ( Crohns disease). He is admitted for further evaluation and treatment. LABORATORY STUDIES: Showed a white count elevation of 12.2, hematocrit down at 33.9, and creatinine elevated at 1.42. A CT scan of the abdomen was performed, which showed no evidence of appendicitis but did show marked inflammation of the terminal ileum and cecum. He is admitted for further evaluation and care on the basis of probable terminal ileitis (Crohn disease). The patient has no prior history of inflammatory bowel disease or bowel problems otherwise. He has no known family history of Crohn disease. His. PAST MEDICAL HISTORY: Does include mitral valve replacement for which he takes Coumadin on a daily basis. Incidentally noted is excessive anticoagulation with an INR of 4.9 with a ProTime of 46.6. He is noted to be COVID negative. The patient has had no blood per rectum or hematemesis. His pain is predominantly in the right lower abdomen. REVIEW OF SYSTEMS: He denies any shortness of breath or chest pain. He has had no dysphagia or dysuria. Denies prior history of deep venous thrombosis. Electronically Signed By: ELBERT ZIEGLER MD 09/08/20 1141 PATIENT NAME: BASILIA CASTANEDA HISTORY AND PHYSICAL DATE OF : 52 REPORT #: [id number] PHYSICIAN: ELBERT ZIEGLER MD PCP: JOSE DE JESUS ALVARADO DO REPORT IS CONFIDENTIAL AND NOT TO BE RELEASED WITHOUT AUTHORIZATION [facility] [address] [place], [place] [address] Signed PHYSICAL EXAMINATION: GENERAL: This is a pleasant white man who is lying supine in reasonably comfortable position. VITAL SIGNS: Temperature 97.6, pulse 55, respirations 16, blood pressure 127/59, room air saturation is 98%. NECK: Trachea is midline. There is no jugular venous distention. CHEST: Shows normal respiratory excursion, pulses regular. ABDOMEN: Mildly distended. Rovsing's sign is mildly positive. He has significant tenderness over the right lower quadrant. EXTREMITIES: Show no clubbing, cyanosis, or edema. LAB STUDIES: As previously noted showed white count of 12.2, hematocrit 33.9. Chem profile with a creatinine of 1.42. Urinalysis was normal. INR 4.90 with a ProTime of 46.6. ASSESSMENT: I reviewed the CT scan with the radiologist as well as independently. He clearly has terminal ileitis and cecal inflammation from a radiographic and clinical standpoint. It is notable that this would be new onset inflammatory bowel disease if indeed that is the underlying problem. He has no family history or personal history of inflammatory bowel disease. His symptoms have been progressive in intensity over the past 4-5 days. He is admitted for parenteral antibiotics and initiation of hydrocortisone ultimately to transition to mesalamine. In due course, colonoscopy would be appropriate to assess the finding, but certainly not in the acute setting. I am mindful that progression of disease can result in perforation or other untoward findings. For now, antibiotics, DVT prophylaxis and steroid initiation of hydrocortisone 100 mg IV q.8 hours is most appropriate with limitation of oral intake to clear liquids. MD RUPERT Sibley/MODL /[id number] Electronically Signed By: ELBERT ZIEGLER MD 09/08/20 1141 PATIENT NAME: BASILIA CASTANEDA HISTORY AND PHYSICAL DATE OF : 52 REPORT #: [id number] PHYSICIAN: ELBERT ZIEGLER MD PCP: JOSE DE JESUS ALVARADO DO REPORT IS CONFIDENTIAL AND NOT TO BE RELEASED WITHOUT AUTHORIZATION [address] [address] Signed cc: Dr. Amor Alvarado DO Copies: JOSE DE JESUS ALVARADO DO ~ Electronically Signed By: ELBERT ZIEGLER MD 09/08/20 1141 PATIENT NAME: BASILIA CASTANEDA HISTORY AND PHYSICAL DATE OF : 52 REPORT #: [id number] PHYSICIAN: ELBERT ZIEGLER MD PCP: JOSE DE JESUS ALVARADO DO REPORT IS CONFIDENTIAL AND NOT TO BE RELEASED WITHOUT AUTHORIZATION
--- NOTE | 2020-09-08 11:47 | NUR ---
HAD PHARM GUNJAN SPEAK WITH PT REGARDING COUMADIN CLINIC. [facility] AND WILL CALL THEM AND LET THEM KNOW HE IS ON SEVERAL MEDICATIONS THAT INTERFERE WITH WARFARIN.
--- NOTE | 2020-09-08 11:59 | NUR ---
CONSULT RECEIVED FOR LOW-FIBER DIET EDUCATION. SPOKE TO PATIENT AND THIS MORNING. DELIVERED LOW-FIBER DIET EDUCATION AND PROVIDED AN EDUCATIONAL HANDOUT THAT LISTS RECOMMENDED FOODS/ NOT RECOMMENDED FOODS. SAMPLE MENUS WERE PROVIDED WELL. PATIENT WAS AMENABLE TO FOLLOWING THIS DIET AND SHOULD DO WELL. ALL QUESTIONS WERE ANSWERED BY THIS RD. MY NAME AND OFFICE NUMBER WERE PROVIDED IN CASE FURTHER QUESTIONS ARISE.
--- NOTE | 2020-09-08 12:40 | NUR ---
Discharge teaching provided, verbal and written. Pt and his verbalize understanding regarding low fiber diet, new medications, and follow up appointments. Pt dressed and VS complete and stable, IV removed. Pt expresses gratitude for staff members and has no needs.
--- NOTE | 2020-09-08 12:48 | NUR ---
PATIENT DRESSED IN PERSONAL CLOTHES. VITALS AND I&OS CHARTED. IV REMOVED. NO OTHER NEEDS AT THIS TIME
--- NOTE | 2020-09-16 16:26 | DS ---
[facility] [address] [place], [place] [address] Signed ADMISSION DATE: 09/06/2020 DISCHARGE DATE: 09/08/2020 REASON FOR ADMISSION: This 70-year-old white man is the of Tuan Castaneda, former patient of mine for breast cancer treatment. He presented to the emergency room where he had 4-5 days of increasing right lower abdominal pain. He presented to the emergency room, was evaluated by Dr. Amor Leo with findings suggestive of appendicitis. Evaluation in the emergency room included clinical examination showing marked tenderness in the right lower quadrant. A CT scan was performed, which showed terminal ileitis and cecal inflammation highly consistent with new onset inflammatory bowel disease. On that basis, he was admitted for further evaluation and care. PAST MEDICAL HISTORY: Does include mitral valve replacement for which he takes Coumadin on a daily basis. He was noted to have excessive anticoagulation with an INR of 4.9 with a ProTime of 46.6 on admission. The patient was found to be COVID negative on testing. PERTINENT PHYSICAL EXAMINATION: GENERAL: A pleasant white man lying supine in position. VITAL SIGNS: Temperature 97.6, pulse 55, respirations 16, blood pressure 127/59, O2 saturation 98% on room air. NECK: Trachea is midline. CHEST: Clear. No jugular venous distention. ABDOMEN: Mildly distended. Rovsing sign is mildly positive. He has marked tenderness in the right lower abdomen. There is no evidence clinically of ascites. LABORATORY STUDIES: Showed a white count of 12.2, hematocrit 33.9. Chem profile normal with creatinine elevated at 1.42. Urinalysis normal. INR 4.90, protime 46.6. CT scan reviewed with the radiologist showed findings consistent with terminal ileitis and cecitis. HOSPITAL COURSE: He was admitted, given intravenous antibiotics, cefoxitin as well as parenteral steroids, hydrocortisone 100 mg IV q.8 hours. DVT prophylaxis as well as course as well. Following day, he did have improvement on examination, though he was still quite tender in the right lower quadrant. His INR elevated to 5.2, though he had no evidence of clinical bleeding. Minimal reversal was undertaken with vitamin K 5 mg, which allowed for normalization of his INR to 3.52 immediately prior to discharge. Electronically Signed By: ELBERT ZIEGLER MD 09/16/20 1626 PATIENT NAME: BASILIA CASTANEDA DISCHARGE SUMMARY DATE OF : 52 REPORT #: [id number] PHYSICIAN: ELBERT ZIEGLER MD PCP: JOSE DE JESUS ALVARADO DO REPORT IS CONFIDENTIAL AND NOT TO BE RELEASED WITHOUT AUTHORIZATION [facility] [address] [place], [place] [address] Signed He had progressive improvement and was transitioned to oral steroid prednisone 40 mg p.o. daily and maintained on oral PPI medication, Protonix 40 mg per day transitioned also to mesalamine 800 mg p.o. t.i.d. and transitioned to Cipro 500 mg p.o. b.i.d. and Flagyl 250 mg p.o. t.i.d. A low-fiber diet was initiated, which he tolerated well. By day of discharge, he is markedly improved. A CRP test is still pending. His discharge CBC showed a white count of 12.8, hematocrit of 34.1, platelets of 250,000 with creatinine decreased the day before of admission to 1.29 and his protime 27.6 with an INR of 2.53 at time of discharge. Notably his goal for anticoagulation is a INR between 2.5 and 3.5. The patient has transitioned to oral medications and will anticipate colonoscopy in a month or so to affirm the diagnosis in question. The patient has had colonoscopy in the past at the [facility] in [place], which was said to be negative. FOLLOWUP PLAN: He is return to see me in approximately four weeks. He is asked to return to the ongoing care of the either the Coumadin Clinic locally or to his [place] provider who monitors his INR and adjust his Coumadin dosing. DISCHARGE MEDICATIONS: Include: 1. Cipro 500 mg p.o. b.i.d. #10. 2. Flagyl 250 p.o. t.i.d. #15. 3. Tylenol 500 mg two tablets p.o. q. 8 hours p.r.n. pain #30. 4. Pantoprazole (Protonix) 40 mg p.o. daily #30 refill 6. 5. Mesalamine (Delzicol 400 mg two tablets p.o. t.i.d. #90). 6. Prednisone 10 mg tablets four tablets p.o. daily x2 weeks, three tabs p.o. daily x2 weeks, two tablets p.o. daily x2 weeks, one tablet p.o. daily x2 weeks and one tablet p.o. every other day x2 weeks and then discontinue. 7. He will resume his usual medications which include Requip 4 mg p.o. at bedtime, Restoril 30 mg p.o. at bedtime, baclofen 20 mg p.o. b.i.d. as needed for back pain. 8. Coumadin 5 mg p.o. daily except 2.5 mg Sunday and Sunday. 9. Atorvastatin, Lipitor 20 mg p.o. at bedtime. 10. Tamsulosin (Flomax) 0.4 mg p.o. at bedtime. 11. Zanaflex 4 mg p.o. at bedtime for low back pain. 12. Losartan 100 mg p.o. daily for hypertension. 13. Verapamil 180 mg p.o. b.i.d. for hypertension. 14. Vitamin B12 1000 mcg p.o. daily. DISCHARGE DIAGNOSES: Electronically Signed By: ELBERT ZIEGLER MD 09/16/20 1626 PATIENT NAME: BASILIA CASTANEDA DISCHARGE SUMMARY DATE OF : 52 REPORT #: [id number] PHYSICIAN: ELBERT ZIEGLER MD PCP: JOSE DE JESUS ALVARADO DO REPORT IS CONFIDENTIAL AND NOT TO BE RELEASED WITHOUT AUTHORIZATION [facility] [address] [place], [place] [address] Signed 1. Severe right lower abdominal pain with terminal ileitis and cecitis (new onset of Crohn's most likely). 2. History of mitral valve replacement, chronic anticoagulation with Coumadin. 3. Hypertension. 4. Benign prostatic hyperplasia. 5. Dyslipidemia. In addition, patient will be recommended for a low-fiber diet for the time being. MD RUPERT Sibley/JAXSONL /[id number] cc: Gerry Garrett, [facility] Saúl Leo Jr, MD Copies: SAÚL LEO JR, MD ~ Electronically Signed By: ELBERT ZIEGLER MD 09/16/20 1626 PATIENT NAME: LEONELBASILIA DUKE DISCHARGE SUMMARY DATE OF : 52 REPORT #: [id number] PHYSICIAN: ELBERT ZIEGLER MD PCP: JOSE DE JESUS ALVARADO DO REPORT IS CONFIDENTIAL AND NOT TO BE RELEASED WITHOUT AUTHORIZATION
== END 2020-09-08 12:50 | disposition home or self-care (01) | DRG 387 ==
LOC: ED 08:50 → MS 08:52
PROVIDERS: ADMIT Surgery; ATTEND Surgery
DX: K50.90 Crohn's disease, unspecified, without complications (principal); I10 Essential (primary) hypertension; Z20.822 Contact with and (suspected) exposure to COVID-19; N40.0 Benign prostatic hyperplasia without lower urinary tract symptoms; E78.5 Hyperlipidemia, unspecified; M19.90 Unspecified osteoarthritis, unspecified site; Z90.49 Acquired absence of other specified parts of digestive tract; Z87.891 Personal history of nicotine dependence; Z95.2 Presence of prosthetic heart valve; Z98.890 Other specified postprocedural states; Z88.0 Allergy status to penicillin; Z88.5 Allergy status to narcotic agent; Z79.899 Other long term (current) drug therapy; Z79.01 Long term (current) use of anticoagulants
CPT/HCPCS: 74177; 80048; 80053; 81001; 83690; 85025; 85610; 96375; 99285-25; C9803; G0378; J0694; J1170; J1650; J1720; J1885; J7030; J7121; J7512; Q9967; U0003

== ENCOUNTER 2021-08-26 14:42 | Emergency (ER) | payer MEDICARE, OTHER ==
[~2021-08-26] VITALS: Ht 177.8 cm; Wt 99.8 kg
[~2021-08-26 14:42] MED LIST changes: +ACETAMINOPHEN500 MG PO; +CIPROFLOXACIN500 MG PO; +DELZICOL400 M1 PO; +IRON325 M1 PO; +METRONIDAZOLE250 MG PO; +PANTOPRAZOLE SO40 MG PO; +PREDNISONE10 MG PO; +VITAMIN B-121000 MCG PO
== END 2021-08-26 17:27 | disposition home or self-care (01) ==
LOC: ED 14:42
DX: U07.1 COVID-19 (principal); I10 Essential (primary) hypertension; Z87.891 Personal history of nicotine dependence; Z88.0 Allergy status to penicillin; Z88.5 Allergy status to narcotic agent; Z79.899 Other long term (current) drug therapy; Z79.01 Long term (current) use of anticoagulants
CPT/HCPCS: 96374; 99283-25

== ENCOUNTER 2023-09-22 17:15 | Emergency (ER) | payer OTHER, MEDICARE ==
[~2023-09-22] VITALS: Ht 175.3 cm; Wt 99.0 kg
[~2023-09-22 17:15] MED LIST changes: +CEFPROZIL500 MG PO; +FOLIC ACID1 MG PO; +FUROSEMIDE20 MG PO; +LOVENOX40 MG/0.4; +MULTI VITAMIN1 EACH PO; -REQUIP4 MG PO; +RESTORIL15 MG PO; -RESTORIL30 MG PO; +ROPINIROLE HCL4 MG PO
[2023-09-22 17:43] LABS: BASOPHILS 0.5 % (0-2); EOSINOPHILS 1.3 % (0-6); HEMATOCRIT 37.3 % (35.0-50.0); HEMOGLOBIN 12.4 g/dL (12.0-18.0); LYMPHOCYTES 7.5 % (24-44); MCH 29.1 (27-36); MCHC 33.2 g/dl (30-36); MCV 87.5 fl (81-99); MONOCYTES 7.2 % (0-12); NEUTROPHILS 83.5 % (39-80); PLATELET COUNT 252 K/uL (140-440); RBC 4.26 M/ul (4.3-5.7); RDW 13.3 (10.5-15.0)
[2023-09-22 17:47] LABS: INR 3.77 (0.80-1.30)
[2023-09-22 17:53] LABS: ALBUMIN 4.5 g/dL (3.4-5.0); ALBUMIN/GLOBULIN RATIO 1.36 (1.1-2.4); BILIRUBIN, TOTAL 0.6 ng/dL (0.2-1.0); BUN/CREATININE RATIO 14.2 (6.0-28.6); CALCIUM 9.4 mg/dL (8.5-10.1); CREATININE, SERUM 1.69 mg/dL (0.70-1.30); PROTEIN, TOTAL 7.8 g/dL (6.4-8.2)
[2023-09-22 19:19] VITALS: BP 161/98
--- NOTE | 2023-09-23 13:50 | EKG ---
[facility] [address] [facility] [place] [address] Signed Sinus rhythm with 1st degree AV block with frequent premature ventricular complexes and premature atrial complexes Left bundle branch block Abnormal ECG When compared with ECG of 12-MAY-2022 03:54, Sinus rhythm has replaced Atrial fibrillation Left bundle branch block has replaced Incomplete left bundle branch block Confirmed by Danette Carmen ([id number]) on 09/23/2023 1:50:21 PM Electronically Signed By: DANETTE CARMEN MD 09/23/23 1350 PATIENT NAME: BASILIA CASTANEDA Electrocardiogram DATE OF : 52 PHYSICIAN: DANETTE CARMEN MD REPORT #: [id number] REPORT IS CONFIDENTIAL AND NOT TO BE RELEASED WITHOUT AUTHORIZATION
== END 2023-09-22 19:19 | disposition home or self-care (01) ==
LOC: ED 17:15
PROVIDERS: Emergency Medicine
DX: S00.83XA Contusion of other part of head, initial encounter (principal); M79.631 Pain in right forearm; W19.XXXA Unspecified fall, initial encounter; I10 Essential (primary) hypertension; I48.91 Unspecified atrial fibrillation; Z87.891 Personal history of nicotine dependence; Z79.01 Long term (current) use of anticoagulants; Z88.0 Allergy status to penicillin; Z88.5 Allergy status to narcotic agent; Z79.899 Other long term (current) drug therapy
CPT/HCPCS: 36415; 70450; 73090; 80053; 85025; 85610; 93005; 93010; 99284; G0480

== ENCOUNTER 2024-04-09 14:39 | Emergency (ER) | payer OTHER, MEDICARE ==
[~2024-04-09] VITALS: Ht 175.3 cm; Wt 109.0 kg
--- OUTSIDE RECORDS SUMMARY | ~2024-04-09 | XMS | Continuity of Care Document ---
Demographics + + + | Address | [address] | | | [place] [address] | + + + | Preferred Language | Unknown | + + + | Marital Status | Unknown | + + + | Jainism Affiliation | Unknown | + + + | Race | White | + + + | Ethnic Group | Not or | + + + Author + + + | Author | [facility] | + + + | Organization | [facility] | + + + | Address | [address] | | | [place] [address] | + + + | Phone | | + + + Care Team Providers + + + + | Care Printer Slotter Helper Name | Role | Phone | + + + + Unavailable | Unavailable | + + + + Allergies No information. Encounters No information. Functional Status No information. Immunizations No information. Medications No information. Problems + + + + | date | description | facility | + + + + | 2024-02-19 09:01:19 | Radiculopathy, cervical | [facility] | | | region | | + + + + Procedures No information. Results/Labs No information. Social History +--------+ + + | date | description | facility | +--------+ + + Vital Signs No information."
[~2024-04-09 14:39] MED LIST changes: +ADULT LOW DOSE81 MG PO; +BUPROPION XL150 MG PO; +CEFUROXIME500 MG PO; +COZAAR50 MG PO; +FERROUS GLUCON324 M2 PO; +HYDROXYZINE HCL50 MG PO; +MELATONIN5 M2 PO; -MULTI VITAMIN1 EACH PO; +ROSUVASTATIN CAL5 MG PO; +TRAMADOL HCL50 MG PO; +VITAMIN C250 MG PO
--- OUTSIDE RECORDS SUMMARY | 2024-04-09 14:45 | XMS ---
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 Dolores VISIT COUNT (12 MO.) [address] [place] [address] TOTAL 3 NOTE: Visits indicate total known visits. ED/UCC VISIT TRACKING (12 MO.) 04/09/2024 14:39 [facility] TYPE: Emergency COMPLAINT: - LEG SWELLING/TROUBLE BREATHING 04/08/2024 14:04 [facility] TYPE: Emergency COMPLAINT: - MUSCLE SPASMS 09/22/2023 17:15 [facility] TYPE: Emergency COMPLAINT: - FALL DIAGNOSES: - Allergy status to narcotic agent - Allergy status to penicillin - Contusion of other part of head, initial encounter - Essential (primary) hypertension - residential (current) use of anticoagulants - Other longterm (current) drug therapy - Pain in right forearm - Personal history of nicotine dependence - Unspecified atrial fibrillation - Unspecified fall, initial encounter - Unspecified injury of head, initial encounter INPATIENT VISIT TRACKING (12 MO.) No inpatient visits to display in this time frame [email or web address]
[2024-04-09] MEDS ORDERED: ALBUTEROL/IPRATROPIUM 3 ML NEB INH PRN (15:00)
[2024-04-09 15:07] LABS: BASOPHILS 0.3 % (0-2); HEMATOCRIT 29.5 % (35.0-50.0); HEMOGLOBIN 9.7 g/dL (12.0-18.0); LYMPHOCYTES 6.5 % (24-44); MCH 28.4 (27-36); MCHC 32.9 g/dl (30-36); MCV 86.4 fl (81-99); MONOCYTES 9.1 % (0-12); NEUTROPHILS 79.1 % (39-80); PLATELET COUNT 220 K/uL (140-440); RBC 3.42 M/ul (4.3-5.7); RDW 14.8 (10.5-15.0)
[2024-04-09 15:28] LABS: ALBUMIN 3.2 g/dL (3.4-5.0); ALBUMIN/GLOBULIN RATIO 0.94 (1.1-2.4); ANION GAP 8.5 (7-21); BILIRUBIN, TOTAL 0.5 mg/dL (0.2-1.0); BUN/CREATININE RATIO 21.87 (6.0-28.6); CALCIUM 8.7 mg/dL (8.5-10.1); CREATININE, SERUM 1.6 mg/dL (0.70-1.30); MAGNESIUM 2.4 mg/dL (1.8-2.4); POTASSIUM 3.5 mmol/L (3.5-5.1); PROTEIN, TOTAL 6.6 g/dL (6.4-8.2)
[2024-04-09] MEDS ORDERED: OXYCODONE HCL5 MG (16:15)
[2024-04-09] MEDS ORDERED: FUROSEMIDE 40 MG/4 ML VIAL IV ONE (17:00)
[2024-04-09] MEDS ORDERED: POTASSIUM CHLORIDE 10 MEQ TABCR PO ONE (17:00)
[2024-04-09] MEDS ORDERED: JANTOVEN2.5 MG (21:12)
[2024-04-09 22:04] VITALS: BP 125/86
--- NOTE | 2024-04-11 13:58 | EKG ---
[facility] [address] [facility] [place] [address] Signed Sinus rhythm with occasional premature ventricular complexes Left bundle branch block T wave abnormality, consider lateral ischemia Abnormal ECG When compared with ECG of 22-SEP-2023 18:47, No significant change was found Confirmed by Ector Hunt MD ([id number]) on 04/11/2024 1:58:40 PM Electronically Signed By: ECTOR HUNT MD 04/11/24 1358 PATIENT NAME: LEONELBASILIA DUKE Electrocardiogram DATE OF : 52 PHYSICIAN: ECTOR HUNT MD REPORT #: [id number] REPORT IS CONFIDENTIAL AND NOT TO BE RELEASED WITHOUT AUTHORIZATION
== END 2024-04-09 22:12 | disposition short-term general hospital (02) ==
LOC: ED 14:39
PROVIDERS: Emergency Medicine
DX: I11.0 Hypertensive heart disease with heart failure (principal); I50.9 Heart failure, unspecified; Z87.891 Personal history of nicotine dependence; Z95.2 Presence of prosthetic heart valve; Z88.0 Allergy status to penicillin; Z88.5 Allergy status to narcotic agent; Z79.82 Long term (current) use of aspirin; Z79.899 Other long term (current) drug therapy
CPT/HCPCS: 36415; 71045; 80053; 83735; 83880; 84484; 85025; 93005; 93010; 94640; 96374; 99285-25; A9270; J1940

== ENCOUNTER 2024-07-01 13:03 | Emergency (ER) | payer OTHER, MEDICARE ==
[~2024-07-01] VITALS: Ht 175.3 cm; Wt 113.8 kg
[~2024-07-01 13:03] MED LIST changes: +BUTRANS1 EAC1 TD; +CLINDAMYCIN HC300 MG PO; +JANTOVEN5 MG PO; +METOPROLOL TART25 MG PO; +OXYCODONE HCL5 MG; +POTASSIUM CHLO10 ME1 PO
--- OUTSIDE RECORDS SUMMARY | 2024-07-01 13:06 | XMS ---
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 Dolores VISIT COUNT (12 MO.) [facility] TOTAL 4 NOTE: Visits indicate total known visits. ED/UCC VISIT TRACKING (12 MO.) 07/01/2024 13:04 [facility] TYPE: Emergency COMPLAINT: - STROKE 04/09/2024 14:39 [facility] TYPE: Emergency COMPLAINT: - LEG SWELLING/TROUBLE BREATHING DIAGNOSES: - Allergy status to narcotic agent - Allergy status to penicillin - Heart failure, unspecified - Hypertensive heart disease with heart failure - Localized edema - financial health counselor (current) use of aspirin - Other prison (current) drug therapy - Personal history of nicotine dependence - Presence of prosthetic heart valve 04/08/2024 14:04 [facility] TYPE: Emergency COMPLAINT: - MUSCLE SPASMS 09/22/2023 17:15 [facility] TYPE: Emergency COMPLAINT: - FALL DIAGNOSES: - Allergy status to narcotic agent - Allergy status to penicillin - Contusion of other part of head, initial encounter - Essential (primary) hypertension - penitentiary (current) use of anticoagulants - 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 [place] TYPE: Medical Surgical DIAGNOSES: - Heart failure, unspecified - Presence of xenogenic heart valve - CHF [email or web address]
[2024-07-01 13:52] LABS: BASOPHILS 0.4 % (0.2-1.2); EOSINOPHILS 3.6 % (0.8-7.0); HEMATOCRIT 39.9 % (40.1-51.0); LYMPHOCYTES 10.5 % (21.8-53.1); MCH 27.6 PG (25.7-32.2); MCHC 30.1 g/dL (32.3-36.5); MCV 91.7 fL (79.0-92.2); MONOCYTES 9.8 % (5.3-12.2); NEUTROPHILS 75.4 % (34.0-67.9); PLATELET COUNT 211 K/uL (163-337); RBC 4.35 M/uL (4.63-6.08)
[2024-07-01 14:04] LABS: INR 3.66 (0.80-1.30); PROTIME 34.7 Sec (11.2-14.2)
[2024-07-01 14:05] LABS: PARTIAL THROMBOPLASTIN TIME 41.3 Sec (22.9-41.3)
[2024-07-01 14:31] LABS: ALBUMIN 3.7 g/dL (3.4-5.0); ALBUMIN/GLOBULIN RATIO 0.97 (1.1-2.4); BILIRUBIN, TOTAL 0.4 mg/dL (0.2-1.0); BUN/CREATININE RATIO 27.42 (6.0-28.6); CALCIUM 8.9 mg/dL (8.5-10.1); CREATININE, SERUM 1.75 mg/dL (0.70-1.30); PROTEIN, TOTAL 7.5 g/dL (6.4-8.2)
[2024-07-01 14:32] LABS: ANION GAP 8.6 (7-21); POTASSIUM 4.6 mmol/L (3.5-5.1)
[2024-07-01 18:45] VITALS: BP 155/84
--- NOTE | 2024-07-03 20:20 | EKG ---
[facility] [address] [facility] [place] [address] Signed Wide QRS rhythm with frequent premature ventricular complexes Left bundle branch block Abnormal ECG When compared with ECG of 09-APR-2024 14:59, Wide QRS rhythm has replaced Sinus rhythm Confirmed by Kannan Lin DO ([id number]) on 07/03/2024 8:20:26 PM Electronically Signed By: KANNAN LIN DO 07/03/24 2020 PATIENT NAME: CASTANEDABASILIA DUKE Electrocardiogram DATE OF : 52 PHYSICIAN: KANNAN LIN DO REPORT #: [id number] REPORT IS CONFIDENTIAL AND NOT TO BE RELEASED WITHOUT AUTHORIZATION
== END 2024-07-01 19:03 | disposition home or self-care (01) ==
LOC: ED 13:03
PROVIDERS: Emergency Medicine
DX: T14.8XXA Other injury of unspecified body region, initial encounter (principal); R29.6 Repeated falls; I10 Essential (primary) hypertension; X58.XXXA Exposure to other specified factors, initial encounter; Z79.82 Long term (current) use of aspirin; Z79.899 Other long term (current) drug therapy; Z88.0 Allergy status to penicillin; Z88.5 Allergy status to narcotic agent; Z87.891 Personal history of nicotine dependence
CPT/HCPCS: 36415; 70450; 70496; 70498; 70551; 71045; 80053; 83735; 83880; 84484; 85025; 85610; 85730; 93005; 93010; 99285-25; Q9967